=== PATIENT | female | born 1980 | race Caucasian/White ===

== ENCOUNTER → 2017-10-07 06:45 | Outpatient (CLI) | payer OTHER, MEDICAID, SELFPAY ==
--- NOTE | 2017-10-07 06:47 | DI.MRI.S_ITS ---
PROCEDURE: MR LUMBAR SPINE WO CON INDICATIONS: chronic back pain TECHNIQUE: Noncontrast sagittal T1 spin echo and T2 fast echo, sagittal STIR, axial T1 and T2 fast spin echo through the lumbar spine. In cases with scoliosis, additional coronal T2 fast spin echo may be performed. COMPARISON: [facility], , ABDOMEN ACUTE SERIES, 04/11/2017, 14:23. FINDINGS: Image quality: Excellent. Alignment and Curvature: 5 lumbar type vertebral bodies are present by plain film. There is minimal grade 1 retrolisthesis of L5 on S1.. Bone Marrow: Marrow is of normal overall signal. No acute vertebral body compression fractures. Spinal Cord: Conus medullaris terminates at the L1-L2 disc space level. Visualized cord demonstrates normal signal and size. Paraspinous Soft Tissues: No paravertebral masses. L1-L2: Normal appearance. L2-L3: Normal appearance. L3-L4: Bilateral facet hypertrophy. No significant canal, nor foraminal stenosis. L4-L5: Disc desiccation. Bilateral facet hypertrophy. No significant canal, nor foraminal stenosis. L5-S1: Disc desiccation and diffuse disc bulge, with superimposed left paracentral protrusion. Bilateral facet hypertrophy. No canal stenosis. Mild left foraminal stenosis. Impingement upon the left S1 nerve root within the lateral recess. IMPRESSION: Disc and facet disease at L5-S1, causing left S1 nerve root impingement. Recommend correlation with clinical symptoms to ascertain relevance of this finding. Dictated by: Humza Brothers M.D. on 10/07/2017 at 11:55 Approved by: Humza Brothers M.D. on 10/07/2017 at 14:20
== END ==
PROVIDERS: Family Provider Family Medicine; PCP Family Medicine; Visit Provider Family Medicine
DX: M51.87 Other intervertebral disc disorders, lumbosacral region (principal); M54.16 Radiculopathy, lumbar region; M54.9 Dorsalgia, unspecified; G89.29 Other chronic pain
CPT/HCPCS: 72148

== ENCOUNTER → 2017-10-17 15:46 | Outpatient (CLI) | payer OTHER, MEDICAID, SELFPAY | PROVIDERS: Family Provider Family Medicine; PCP Family Medicine; Visit Provider Family Medicine | DX: L02.31 Cutaneous abscess of buttock (principal); L03.317 Cellulitis of buttock | CPT/HCPCS: 87070; 87075; 87077; 87147; 87186; 87205 ==

== ENCOUNTER 2017-10-21 21:41 | Emergency (ER) | payer OTHER, MEDICAID, SELFPAY ==
[2017-10-21 22:01] VITALS: BP 150/89; PULSE 107; RESP 18; TEMP 36.7; O2SAT 95; BMI 43.0
--- NOTE | 2017-10-22 00:19 | ED_ITS ---
HPI - Back Pain/Injury General Chief Complaint: Back Pain/Injury Stated Complaint: BACK PAIN Time Seen by Provider: 10/21/17 22:57 History of Present Illness HPI Narrative: HPI 36-year-old morbidly obese female with a known L5/S1 radiculopathy secondary to a herniated disc presents for treatment of ongoing pain in the setting of gabapentin, Toradol, oxycodone use at home. Patient denies a history of recent trauma, fevers, chills, unexpected weight loss, decreased perineal sensation when toileting, difficulty urinating or incontinence, morning stiffness, IV drug use, recent invasive medical procedures, presyncope, abdominal pain, Marfan 's disease, or dysuria. Clinic note dated 10/20/17 reviewed and notable for: 3.5 weeks of document pain, worsened after chiropractic visit. Pain was described as constant, burning, aching, and occasionally sharp depending on activity. Prior treatments have included ice, he, NSAIDs, and an unspecified pain medication. Patient's is a current every day smoker. L spine MRI (10/07/17): disc and facet disease at L5-S1 causing left S1 nerve root impingement. M/S/F/SocHx notable for: hysterectomy; remainder reviewed with patient and in chart. ROS: Negative constitutional, eye, cardiovascular, pulmonary, GI, , MSK, skin , neurologic, psychiatric, endocrine unless noted in the HPI. Exam Gen: Pleasant, non-toxic appearing, resting in mild discomfort. HEENT: NC, AT, PEERL, EOMI. Resp: CTAB Card: RRR GI: ND, non-tender to palpation, no palpable midline masses, no palpable midline pulsatility. : No CVA tenderness to percussion bilaterally. MSK: No visible deformities, strength and tone WNL. No lower thoracic or lumbar spinal TTP, step offs or deformities. No paraspinal TTP. Skin: Normal color with no visible lesions. Neuro: AO x 3, no facial asymmetry, vision and hearing WNL. Straight leg raise test - negative right, positive left. BLE distal sensation intact, 5/5 dorsiflexion / plantarflexion bilaterally. Gait: mildly antalgic, normal, narrow based gait, able to walk unassisted and stand on heels and toes with full apparent strength. Psych: Mood and affect appropriate. MDM Previous chart, nursing note, and vitals reviewed. A: 36-year-old morbidly obese female with a known L5/S1 radiculopathy secondary to a herniated disc presents for treatment of ongoing pain in the setting of gabapentin, Toradol, oxycodone use at home. DDx: muscle strain, muscle spasm, sciatica, lumbar radiculopathy, cauda equina syndrome, spinal cord abscess, vertebral osteomyelitis, vertebral diskitis, fracture, seronegative spondyloarthropathy, abdominal aortic aneurysm. Evaluation: * Cauda equina - consider unlikely given normal perineal sensation, lack of incontinence or urinary retention. * Infection - abscess, vertebral osteomyelitis, and diskitis are unlikely as the patient is immunocompetent and is with an absence of infectious signs and risk factors on ROS, and a lack of point tenderness. * Fracture - doubt given the absence of spinal TTP and lack of prior trauma * Seronegative spondyloarthropathy - unlikely, no further evaluation currently indicated given the absence of morning stiffness and negative RA, psoriatic arthritis, and autoimmune disease history. * AAA or Dissection - [given the lack of a palpable pulsatile abdominal mass, abdominal pain, presyncope, an abdominal aortic aneurysm as well as dissection is considered unlikely and further investigation is not currently indicated. * Consider lumbar radiculopathy to be the most likely cause of the patient's symptoms. Counseled patient regarding natural course of radicular back pain, given return to care instructions, and recommendation for primary care physician follow up. Discharged with instructions to continue previously prescribed medications. 30 mg IM Toradol given prior to discharge. Impression: Back Pain. (please reference below for remainder of encounter information) Related Data Home Medications Medication Instructions Recorded Confirmed amitriptyline 75 mg tablet 75 mg PO BEDTIME tab 09/25/17 10/20/17 Previous Rx's Medication Instructions Recorded albuterol sulfate 3 ml INH Q6HP PRN #30 ea 10/30/16 acyclovir 400 mg PO TID #30 tab 03/24/17 duloxetine 30 mg PO QDAY #30 cap 05/08/17 duloxetine [Cymbalta] 60 mg PO QDAY #90 cap 05/26/17 risperidone [Risperdal] 0 PO QHS #60 tab 06/02/17 hydroxyzine pamoate [Vistaril] 0 PO QDAY PRN #10 cap 07/28/17 zolpidem [Ambien] 10 mg PO HS #90 tab 07/28/17 levothyroxine 100 mcg PO QAM #90 tab 08/11/17 ibuprofen 600 mg tablet 600 mg PO Q6HP PRN #20 tab 09/16/17 albuterol sulfate HFA 90 0 puff INHALATION PRN #1 inh 09/19/17 mcg/actuation aerosol inhaler furosemide 20 mg tablet 20 mg PO DAILY PRN #14 tab 09/25/17 gabapentin 600 mg tablet 600 mg PO TID #90 tab 10/10/17 hydrocodone 5 mg-acetaminophen 325 1 tab PO Q6H #120 tab 10/10/17 mg tablet ketorolac 10 mg tablet 10 mg PO Q6H PRN #30 tab 10/10/17 oxycodone 5 mg tablet 5 mg PO Q4-6H PRN #30 tab 10/14/17 Allergies Allergy/AdvReac Type Severity Reaction Status Date / Time Penicillins [PENICILLINS] Allergy Unknown Verified 09/25/17 12:05 fluconazole [From DIFLUCAN] AdvReac Intermediate vomiting Verified 09/25/17 12: 05 and abd pain codeine [CODEINE] AdvReac Mild NAUSEA Verified 09/25/17 12:05 [facility] Social History Smoking Status: Current some day smoker Exam Initial Vital Signs Initial Vital Signs: Vital Signs Temperature 98.0 F 10/21/17 22:01 Pulse Rate 107 H 10/21/17 22:01 Respiratory Rate 18 10/21/17 22:01 Blood Pressure 150/89 H 10/21/17 22:01 Pulse Oximetry 95 10/21/17 22:01 Course Vital Signs - 8 hr 10/21/17 22:01 Temperature 98.0 F Pulse Rate 107 H Respiratory Rate 18 Blood Pressure 150/89 H Pulse Oximetry 95 Discharge Plan Departure Prescriptions: No Action albuterol sulfate 2.5 MG/3 ML solution for nebulization 3 ml INH Q6HP PRNQty: 30 RF: 1 acyclovir 400 MG tablet 400 mg PO TID Qty: 30 RF: 1 duloxetine 30 MG capsule,delayed release(DR/EC) 30 mg PO QDAY Qty: 30 RF: 6 duloxetine [Cymbalta] 60 MG capsule,delayed release(DR/EC) 60 mg PO QDAY Qty: 90 RF: 3 risperidone [Risperdal] 0.5 MG tablet PO QHS Qty: 60 RF: 5 hydroxyzine pamoate [Vistaril] 50 MG capsule PO QDAY PRNQty: 10 RF: 1 zolpidem [Ambien] 10 MG tablet 10 mg PO HS Qty: 90 RF: 3 levothyroxine 100 MCG tablet 100 mcg PO QAM Qty: 90 RF: 3 ibuprofen 600 mg tablet 600 mg PO Q6HP PRN (Reason: pain) Qty: 20 RF: 0 albuterol sulfate [Ventolin HFA] 90 mcg/actuation HFA aerosol inhaler INHALATION PRN Qty: 1 RF: 2 gabapentin 600 mg tablet 600 mg PO TID Qty: 90 RF: 1 hydrocodone-acetaminophen 5-325 mg tablet 1 tab PO Q6H Qty: 120 RF: 0 ketorolac 10 mg tablet 10 mg PO Q6H PRN (Reason: pain) Qty: 30 RF: 0 oxycodone 5 mg tablet 5 mg PO Q4-6H PRN (Reason: pain) Qty: 30 RF: 0 amitriptyline 75 mg tablet 75 mg PO BEDTIME RF: 0 furosemide [Lasix] 20 mg tablet 20 mg PO DAILY PRN (Reason: edema) Qty: 14 RF: 0
[2017-10-22] MEDS: KETOROLAC 60 MG/2 ML VIAL 30 MG IM (00:24)
[2017-10-22 00:27] VITALS: BP 150/82; PULSE 100; RESP 18; TEMP 36.8; O2SAT 96
== END 2017-10-22 00:27 | disposition home or self-care (01) ==
PROVIDERS: Emergency Provider Emergency Medicine; Family Provider Family Medicine; PCP Family Medicine
DX: M54.9 Dorsalgia, unspecified (principal)
CPT/HCPCS: 96372; 99282; 99283; J1885

== ENCOUNTER → 2017-10-24 15:23 | Outpatient (CLI) | payer OTHER, MEDICAID, SELFPAY | PROVIDERS: Family Provider Family Medicine; PCP Family Medicine; Visit Provider Family Medicine | DX: L02.31 Cutaneous abscess of buttock (principal); L03.317 Cellulitis of buttock | CPT/HCPCS: 87252 ==

== ENCOUNTER → 2017-10-29 17:23 | Outpatient (CLI) | payer OTHER, SELFPAY ==
--- NOTE | 2017-10-29 17:32 | DI.RAD.S_ITS ---
PROCEDURE: XR LUMBAR SPINE MIN 4V INDICATIONS: L5-S1 HNP with left lower extremity radiculopathy TECHNIQUE: 5 views of the lumbar spine were acquired. COMPARISON: [facility], , XR L-SPINE 4-6V, 01/04/2004, 15:08. FINDINGS: Bones: 5 nonrib-bearing vertebrae are present. There is normal bony alignment. No vertebral body compression fractures. No suspicious bony lesions. Mild disc narrowing L4-5. Mild disc degeneration and facet arthropathy L5-S1, mildly progressive since prior study. Soft tissues: Overlying bowel gas pattern is normal. No suspicious soft tissue calcifications. Oblique images: No pars defects. IMPRESSION: Mild degenerative changes lower lumbar spine. No acute bony abnormality. Dictated by: Enzo Contreras M.D. on 10/30/2017 at 7:51 Approved by: Enzo Contreras M.D. on 10/30/2017 at 7:53
--- NOTE | 2017-10-29 17:34 | DI.RAD.S_ITS ---
PROCEDURE: XR CHEST 2V INDICATIONS: COUGH TECHNIQUE: 2 views of the chest were acquired. COMPARISON: [facility], , CHEST 1 VIEW, 05/04/2017, 18:51. FINDINGS: Surgical changes and devices: None. Lungs and pleura: No pleural effusions or pneumothorax. The right lung field is denser than the left, probably technical artifact as the soft tissues of the arm also appear underexposed on the right. There is apparent atelectasis and bronchial wall thickening in the medial basilar segment of the right lower lobe, suspect for bronchitis/bronchopneumonia. Mediastinum: Mediastinal contours are normal. Heart size is normal. Bones and chest wall: No suspicious bony abnormalities. Soft tissues appear unremarkable. IMPRESSION: 1. Probable technical artifactual asymmetry of thoracic density 2. Probable right lower lobe bronchitis/bronchopneumonia. Recommend clinical correlation and short interval followup. Dictated by: Enzo Contreras M.D. on 10/30/2017 at 7:45 Approved by: Enzo Contreras M.D. on 10/30/2017 at 7:47
== END ==
PROVIDERS: Family Provider Family Medicine; PCP Family Medicine; Visit Provider Physical Medicine & Rehabilitation
DX: R05 Cough (principal); M51.36 Other intervertebral disc degeneration, lumbar region; M54.17 Radiculopathy, lumbosacral region; M51.27 Other intervertebral disc displacement, lumbosacral region; M54.9 Dorsalgia, unspecified
CPT/HCPCS: 71046; 72110

== ENCOUNTER 2017-11-12 13:15 | Outpatient (CLI) | payer OTHER, SELFPAY ==
[2017-11-12] VITALS (7 sets, daily range): BP systolic 121–148; BP diastolic 69–97; PULSE 93–105; RESP 10–18; TEMP 36.8; O2SAT 96–99
--- NOTE | 2017-11-12 13:16 | DI.RAD.S_ITS ---
PROCEDURE: PAIN L/S TRANSFORAMINAL INJECT INDICATIONS: lower extremity radiculopathy FINDINGS: Fluoroscopic spot filming was performed to verify placement of spinal needles at the left L5-S1 level(s), as labeled on the films. Appropriate location(s) of the needle tip(s) was confirmed by injection of iodinated contrast. IMPRESSION: Left L5-S1 needle tip localization for perineural steroid injection in this area. Dictated by: Nitish Sexton M.D. on 11/12/2017 at 17:03 Approved by: Nitish Sexton M.D. on 11/12/2017 at 17:04
[2017-11-12] MEDS: IOPAMIDOL 15 ML VIAL 3 ML INJ (16:07)
[2017-11-12] MEDS: DEXAMETHASONE 10 MG/ML VIAL 20 MG INJ (16:07)
[2017-11-12] MEDS: BUPIVACAINE 0.25% (PF) 30 ML VIAL INJ (16:07)
[2017-11-12] MEDS: MIDAZOLAM 5 MG/5 ML VIAL IV (16:08)
--- NOTE | 2017-11-12 16:10 | P.PCN_ITS ---
Procedures Date/Time Date of procedure: 11/12/17 Time of procedure: 16:09 General Procedure description: PREOP DIAGNOSIS 1. FORMAINAL STENOSIS WITH LE SYMPTOMS POST OP DIAGNOSIS 1. FORMAINAL STENOSIS WITH LE SYMPTOMS PROCEDURES 1. FLUOROSCOPICALLY GUIDED CONTRAST CONTROLLED TRANSFORAMINAL EPIDURAL STEROID INJECTION - Left L5/S1 PHYSICIAN: Lei Ogden DO INDICATIONS: Alina is referred by Dr. Vieyra for treatment of HNP/Foraminal Stenosis with Right LE Symptoms FINDINGS Foraminal Nerve Root Compression secondary to disc disease and facet hypertrophy DESCRIPTION OF PROCEDURE: Following denial of allergy and review of potential side effects and complications, including, but not necessarily limited to, infection, allergic reaction, local tissue breakdown, stroke, temporary or permanent nerve injury, paralysis, and possible , the patient indicated that the patient understood and agreed to proceed. An informed consent document was signed by the patient, witnessed by a nurse, and placed in the patient's chart. Additionally, other treatment options including medications, modalities, and physical therapy were reviewed with the patient. Per the patient request, IV conscious sedation was administered via 5mg of Versed to patient comfort. The patient's vital signs were monitored throughout the procedure by both the nurse and the physician without significant fluctuation. The patient remained conversant throughout the procedure. In the prone position following sterile prep and drape of the lumbar region, the Left L5/S1 posterior neuroforamen was identified fluoroscopically. The skin was anesthetized via a 25-gauge 1.5-inch needle with 1% lidocaine solution. At this point, a 25-gauge 3.5-inch spinal needle was atraumatically introduced and advanced under fluoroscopic guidance through the posterior Left L5/S1 neuroforamen to approximately the anterior aspect of the canal. Depth was confirmed on lateral view. Following negative aspiration, injection of approximately 1.5 cc of Isovue 200 under live fluoroscopy in the AP view confirmed excellent flow along the nerve root, into the epidural space without vascular or intrathecal uptake observed Radiological data, including multiple fluoroscopic views of the lumbosacral spine, reveal a spinal needle at the Left L5/S1 posterior neuroforamen. Subsequent views show flow of contrast material flowing superiorly and inferiorly along the nerve root confirming epidural flow. Subsequently, a test dose of 1.5 cc of 1% lidocaine solution was administered and patient was observed for two minutes for signs or symptoms of complications , including abdominal pain, shortness of breath, bilateral upper or lower extremity weakness, nausea and vomiting, prior to steroid injection. At this point, a total of 3 cc or 20 mg of dexamethasone and 80mg Depo Medrol was injected without incident. The patient was then transferred to the recovery area where they were observed for an appropriate time after the injection. The patient reported a VAS score of 7 prior to the procedure and a post-procedure VAS of 0. Total Fluoroscopy Time: 20.9 seconds Total Conscious Sedation Time: 24min POST OP INSTRUCTIONS The patient was provided a Pain Log to continue to record their response to the target-specific procedure prior to follow-up visit with their referring physician. Additionally, specific post-injection care instructions and a contact number to our office were provided if concerns arise regarding possible complications associated with the procedure are suspected. Lei Ogden DO Complications: none
== END 2017-11-12 17:34 | disposition home or self-care (01) ==
PROVIDERS: PCP Family Medicine; Visit Provider Physical Medicine & Rehabilitation
DX: M51.17 Intervertebral disc disorders with radiculopathy, lumbosacral region (principal)
CPT/HCPCS: 64483; 99152; J1100; J2250

== ENCOUNTER 2017-12-31 18:12 | Emergency (ER) | payer OTHER, SELFPAY ==
[2017-12-31 18:24] VITALS: BP 165/102; PULSE 111; RESP 20; TEMP 37.3; O2SAT 95; BMI 42.0
[2017-12-31 19:21] LABS: Add Manual Diff / Slide Review NO; Basophils Percent Auto 0.6 % (0-2); Hematocrit 39.5 % (36-46); Hemoglobin 12.9 g/dL (12.0-16.0); Lymphocytes Percent Auto 14.9 % (25-40); Mean Corpuscular HGB Conc 32.5 % (30-36); Mean Corpuscular Hemoglobin 27.4 PG (26-34); Mean Corpuscular Volume 84.3 fL (80-100); Neutrophils Absolute Auto 8500 /uL (3000-5900); Neutrophils Percent Auto 73.5 % (50-75); Platelet Count 335 X10^3/uL (150-400); Red Blood Cell Count 4.69 X10^6/uL (4.0-5.2); Red Cell Distribution Width 16.6 % (11.6-14.8); White Blood Cell Count 11.6 X10^3/uL (4.5-11.0)
[2017-12-31 19:24] LABS: Alanine Aminotransferase 41 IU/L (9-52); Albumin 4.6 g/dL (3.5-5.0); Albumin Globulin Ratio 1.4 (1.0-2.8); Alkaline Phosphatase 155 U/L (38-126); Aspartate Aminotransferase 39 IU/L (14-36); BUN Creatinine Ratio 15.7 (6-22); Bilirubin Total 0.4 mg/dL (0.2-1.3); Blood Urea Nitrogen 11 mg/dL (7-17); Calcium 9.6 mg/dL (8.4-10.2); Carbon Dioxide 31 mmol/L (22-32); Chloride 103 mmol/L (98-107); Estimated Glomerular Filt Rate > 60.0 mL/min (>60); Globulin 3.2 g/dL (1.7-4.1); Glucose 108 mg/dL (70-100); HEMOLYSIS < 15 (0-50); Potassium 3.7 mmol/L (3.4-5.1); Sodium 144 mmol/L (137-145); Total Protein 7.8 g/dL (6.3-8.2)
--- NOTE | 2017-12-31 20:46 | DI.RAD.S_ITS ---
PROCEDURE: XR CHEST 2V INDICATIONS: SOB TECHNIQUE: 2 views of the chest were acquired. COMPARISON: , CR, CHEST 1 VIEW, 05/04/2017, 18:51. , CT, PE STUDY (CTA CHEST), 01/31/2016, 1:49. , CR, XR CHEST 2V, 10/29/2017, 17:14. FINDINGS: Surgical changes and devices: None. Lungs and pleura: No pleural effusions or pneumothorax. There are indistinct interstitial opacities redemonstrated in the right lung with slight asymmetric bronchial wall thickening. There are also increased linear right infrahilar opacities. Mediastinum: Mediastinal contours are normal. Heart size is normal. Bones and chest wall: No suspicious bony abnormalities. Soft tissues appear unremarkable. IMPRESSION: 1. Asymmetric right interstitial opacities with slight bronchial wall thickening similar to the recent study but new compared to older exams. The findings are nonspecific but suggestive of an atypical infection. 2. Increased right infrahilar linear opacities consistent with atelectasis or pneumonia. Dictated by: Amish Deutsch M.D. on 12/31/2017 at 21:23 Approved by: Amish Deutsch M.D. on 12/31/2017 at 21:25
[2017-12-31 21:04] VITALS: BP 154/98; PULSE 105; RESP 21; O2SAT 95
[2017-12-31] MEDS: ACETAMINOPHEN 325 MG TABLET 650 MG PO (21:08)
[2017-12-31 21:35] LABS: B Type Natriuretic Peptide < 100.0 (<100)
--- NOTE | 2017-12-31 22:01 | ED.GENADULT ---
HPI - General Adult General Chief complaint: Hypertension Stated complaint: TROUBLE URINATING Time Seen by Provider: 12/31/17 20:38 Source: patient Mode of arrival: ambulatory Limitations: no limitations History of Present Illness HPI narrative: 37-year-old female with history of hypertension presents to the emergency department with a chief complaint of elevated blood pressure as well as lack of response to Lasix and continued swelling in her ankles. She denies any chest pain or shortness of breath and is not dizzy or lightheaded. She denies any abdominal pain or focal neurologic findings such as numbness, tingling or weakness. She was encouraged to present to the emergency department by her doctors when it sounded as if she was not producing urine at home. She has been taking Lasix 40 mg for edema and not urinating Onset (ago): day(s) Severity: moderate Quality: aching Relieving factors: none Exacerbating factors: none Related Data Home Medications Medication Instructions Recorded Confirmed amitriptyline 75 mg tablet 75 mg PO BEDTIME tab 09/25/17 12/23/17 Previous Rx's Medication Instructions Recorded albuterol sulfate 3 ml INH Q6HP PRN #30 ea 10/30/16 duloxetine 30 mg PO QDAY #30 cap 05/08/17 duloxetine [Cymbalta] 60 mg PO QDAY #90 cap 05/26/17 zolpidem [Ambien] 10 mg PO HS #90 tab 07/28/17 levothyroxine 100 mcg PO QAM #90 tab 08/11/17 ibuprofen 600 mg tablet 600 mg PO Q6HP PRN #20 tab 09/16/17 albuterol sulfate HFA 90 0 puff INHALATION PRN #1 inh 09/19/17 mcg/actuation aerosol inhaler furosemide 20 mg tablet 20 mg PO DAILY PRN #14 tab 09/25/17 hydrocodone 5 mg-acetaminophen 325 1 tab PO Q6H #120 tab 11/25/17 mg tablet risperidone 0.5 mg tablet See Label Instructions PO QHS #60 12/10/17 tab gabapentin 600 mg tablet 600 mg PO TID #90 tab 12/12/17 albuterol sulfate 2.5 mg INHALATION Q4-6H PRN #90 ml 12/31/17 furosemide [Lasix] 40 mg PO DAILY #14 tab 12/31/17 lisinopril 20 mg PO DAILY #20 tab 12/31/17 Allergies Allergy/AdvReac Type Severity Reaction Status Date / Time Penicillins [PENICILLINS] Allergy Unknown Verified 12/23/17 09:47 fluconazole [From DIFLUCAN] AdvReac Intermediate vomiting Verified 12/23/17 09:47 and abd pain codeine [CODEINE] AdvReac Mild NAUSEA Verified 12/23/17 09:47 Review of Systems Review of Systems All systems reviewed & are unremarkable except as noted in HPI and below Constitutional Denies chills, Denies fever(s), Denies lethargy and Denies weakness Eyes Denies change in vision, Denies eye discharge, Denies irritation and Denies loss of vision ENT Ears, Nose, Mouth, and Throat: Denies change in voice, Denies neck pain and Denies sore throat Cardiovascular Denies chest pain, Denies irregular heart rhythm, Denies lightheadedness, Denies palpitations, Denies dyspnea, Denies dyspnea on exertion and Denies orthopnea Respiratory Denies cough, Denies dyspnea, Denies dyspnea on exertion and Denies wheezing Gastrointestinal Gastrointestinal: Denies abdominal pain, Denies change in bowel habits, Denies diarrhea, Denies nausea and Denies vomiting Genitourinary Denies hematuria, Denies flank pain, Denies urinary incontinence and Denies urinary urgency Comments: Difficulty with urination Musculoskeletal Denies neck pain Comments: Swollen lower extremities Integumentary/Breasts Denies pruritus, Denies erythema, Denies rash and Denies wounds Neurologic Denies confusion, Denies loss of vision and Denies weakness Psychiatric Denies anxiety, Denies confusion, Denies depression, Denies homicidal ideation and Denies suicidal ideation Endocrine Denies palpitations Hematologic/Lymphatic Denies easy bruising Allergic/Immunologic Denies wheezing [facility] Medical History Anxiety (Chronic) Asthma (Chronic) Depression (Chronic) Diverticular disease (Chronic ~2015) Irritable bowel syndrome (Chronic) Rheumatoid arthritis (Chronic) Surgical History Status post delivery (12/30/14) Status post laparoscopic supracervical hysterectomy (10/23/15) Status post laparoscopy (01/19/16) Status post surgery (07/07/12) Status post tubal ligation (12/30/14) Family History Grandmother Stroke Grandfather Heart disease Cancer Father Hypertension Social History Smoking Status: Current some day smoker Exam Narrative Exam Narrative: GENERAL: This is a well-nourished, well-developed patient, in mild distress. HEAD: Atraumatic. Normocephalic. No temporal or scalp tenderness. EYES: Pupils equal round and reactive. Extraocular motions intact. No scleral icterus. No injection or drainage. ENT: Nose without bleeding, purulent drainage or septal hematoma. Throat without erythema, tonsillar hypertrophy or exudate. Uvula midline. Airway patent. NECK: Trachea midline. No JVD or lymphadenopathy. Supple, nontender, no meningeal signs. CARDIOVASCULAR: Regular rate and rhythm without murmurs, gallops, or rubs. RESPIRATORY: Clear to auscultation. Breath sounds equal bilaterally. No wheezes, rales, or rhonchi. GASTROINTESTINAL: Abdomen soft, non-tender, nondistended. No hepato-splenomegaly, or palpable masses. No guarding. EXTREMITIES: No clubbing, cyanosis, or edema. Mild lower extremity pitting edema BACK: Nontender without deformity or crepitance. No flank tenderness. NEURO: AOx3. SKIN: No rash or erythema. Initial Vital Signs Initial Vital Signs: Vital Signs Temperature 99.1 F 12/31/17 18:24 Pulse Rate 111 H 12/31/17 18:24 Respiratory Rate 20 12/31/17 18:24 Blood Pressure 165/102 H 12/31/17 18:24 Pulse Oximetry 95 12/31/17 18:24 Course Orders Ordered: ED Orders 12/31/17 18:45 B Type Natriuretic Peptide Stat CBC [Complete Blood Count AUTO DIFF] Stat Comprehensive Metabolic Panel Stat 12/31/17 20:46 XR chest 2V Stat Discontinued Medications Acetaminophen (Tylenol) 650 mg PO NOW ONE Stop: 12/31/17 20:47 Last Admin: 12/31/17 21:08 Dose: 650 mg Vital Signs - 8 hr 12/31/17 21:04 12/31/17 23:07 Pulse Rate 105 H 88 Respiratory Rate 21 18 Blood Pressure [Left Wrist] 154/98 H 140/95 H Pulse Oximetry 95 95 Medical Decision Making MDM Narrative Medical decision making narrative: patient denies fever chills or productive cough. though She has a very minimally elevated white count and the chest x-ray suggests pneumonia I am more inclined to believe the atelectasis. She does not satisfy criteria for the treatment of what is most likely not pneumonia Lab Data Result diagrams: 12/31/17 18:45 12/31/17 18:45 Lab Results 12/31/17 12/31/17 12/31/17 Range/Units 18:45 18:45 18:45 WBC 11.6 H (4.5-11.0) X10^3/uL RBC 4.69 (4.0-5.2) X10^6/uL Hgb 12.9 (12.0-16.0) g/dL Hct 39.5 (36-46) % MCV 84.3 (80-100) fL MCH 27.4 (26-34) PG MCHC 32.5 (30-36) % RDW 16.6 H (11.6-14.8) % Plt Count 335 (150-400) X10^3/uL Neut % (Auto) 73.5 (50-75) % Lymph % (Auto) 14.9 L (25-40) % [place] % (Auto) 6.0 (3-14) % Eos % (Auto) 5.0 H (2-4) % Baso % (Auto) 0.6 (0-2) % Neut # (Auto) 8500 H (3623-2243) /uL Sodium 144 (137-145) mmol/L Potassium 3.7 (3.4-5.1) mmol/L Chloride 103 (98-107) mmol/L Carbon Dioxide 31 (22-32) mmol/L BUN 11 (7-17) mg/dL Creatinine 0.70 (0.52-1.04) mg/dL Estimated GFR > 60.0 (>60) mL/min BUN/Creatinine Ratio 15.7 (6-22) Glucose 108 H (70-100) mg/dL Calcium 9.6 (8.4-10.2) mg/dL Total Bilirubin 0.4 (0.2-1.3) mg/dL AST 39 H (14-36) IU/L ALT 41 (9-52) IU/L Alkaline Phosphatase 155 H (38-126) U/L B-Natriuretic Peptide < 100.0 (<100) Total Protein 7.8 (6.3-8.2) g/dL Albumin 4.6 (3.5-5.0) g/dL Globulin 3.2 (1.7-4.1) g/dL Albumin/Globulin Ratio 1.4 (1.0-2.8) Imaging Data Chest x-ray: Radiologist's impression: PROCEDURE: XR CHEST 2V INDICATIONS: SOB TECHNIQUE: 2 views of the chest were acquired. COMPARISON: [facility], CR, CHEST 1 VIEW, 05/04/2017, 18:51. [facility], CT, PE STUDY (CTA CHEST), 01/31/2016, 1:49. [facility], CR, XR CHEST 2V, 10/29/2017, 17:14. FINDINGS: Surgical changes and devices: None. Lungs and pleura: No pleural effusions or pneumothorax. There are indistinct interstitial opacities redemonstrated in the right lung with slight asymmetric bronchial wall thickening. There are also increased linear right infrahilar opacities. Mediastinum: Mediastinal contours are normal. Heart size is normal. Bones and chest wall: No suspicious bony abnormalities. Soft tissues appear unremarkable. IMPRESSION: 1. Asymmetric right interstitial opacities with slight bronchial wall thickening similar to the recent study but new compared to older exams. The findings are nonspecific but suggestive of an atypical infection. 2. Increased right infrahilar linear opacities consistent with atelectasis or pneumonia. Dictated by: Amish Deutsch M.D. on 12/31/2017 at 21:23 Approved by: Amish Deutsch M.D. on 12/31/2017 at 21:25 Discharge Plan Departure Patient Disposition: Home Clinical Impression: Hypertension, Edema Discharge Date/Time: 12/31/17 23:28 Interventions: ED Discharge Assessment Last Done: 12/31/17 23:25 Instructions: DI for High Blood Pressure Activity Restrictions/Additional Instructions: *You have been diagnosed with [ bilateral lower extremity edema, elevated blood pressure ] *What to do: *Take medications as directed: Your new prescription [facility] based on past preferences. Please take Lasix 60 mg p.o. daily for the next 3 days and then return to her normal regimen *Follow up with your primary care provider in 2-3 days, call for an appointment. Let them know you were seen in the Emergency Department and that we ask that you be seen in follow up *Return to ER if you should have any new, worsening or concerning symptoms Prescriptions: New lisinopril 20 mg tablet 20 mg PO DAILY Qty: 20 RF: 0 furosemide [Lasix] 40 mg tablet 40 mg PO DAILY Qty: 14 RF: 0 albuterol sulfate 2.5 mg /3 mL (0.083 %) solution for nebulization 2.5 mg INHALATION Q4-6H PRN (Reason: bronchospasm) Qty: 90 RF: 0 No Action albuterol sulfate 2.5 MG/3 ML solution for nebulization 3 ml INH Q6HP PRNQty: 30 RF: 1 duloxetine 30 MG capsule,delayed release(DR/EC) 30 mg PO QDAY Qty: 30 RF: 6 duloxetine [Cymbalta] 60 MG capsule,delayed release(DR/EC) 60 mg PO QDAY Qty: 90 RF: 3 zolpidem [Ambien] 10 MG tablet 10 mg PO HS Qty: 90 RF: 3 levothyroxine 100 MCG tablet 100 mcg PO QAM Qty: 90 RF: 3 ibuprofen 600 mg tablet 600 mg PO Q6HP PRN (Reason: pain) Qty: 20 RF: 0 albuterol sulfate [Ventolin HFA] 90 mcg/actuation HFA aerosol inhaler INHALATION PRN Qty: 1 RF: 2 hydrocodone-acetaminophen 5-325 mg tablet 1 tab PO Q6H Qty: 120 RF: 0 risperidone [Risperdal] 0.5 mg tablet See Label Instructions PO QHS Qty: 60 RF: 0 amitriptyline 75 mg tablet 75 mg PO BEDTIME RF: 0 furosemide [Lasix] 20 mg tablet 20 mg PO DAILY PRN (Reason: edema) Qty: 14 RF: 0 gabapentin 600 mg tablet 600 mg PO TID Qty: 90 RF: 1 Referrals: Rebeca Meyer DO [Primary Care Provider] -
[2017-12-31 23:07] VITALS: BP 140/95; PULSE 88; RESP 18; O2SAT 95
--- NOTE | 2018-01-01 03:01 | ED_ITS ---
HPI - General Adult General Chief complaint: Hypertension Stated complaint: TROUBLE URINATING Time Seen by Provider: 12/31/17 20:38 Source: patient Mode of arrival: ambulatory Limitations: no limitations History of Present Illness HPI narrative: 37-year-old female with history of hypertension presents to the emergency department with a chief complaint of elevated blood pressure as well as lack of response to Lasix and continued swelling in her ankles. She denies any chest pain or shortness of breath and is not dizzy or lightheaded. She denies any abdominal pain or focal neurologic findings such as numbness, tingling or weakness. She was encouraged to present to the emergency department by her doctors when it sounded as if she was not producing urine at home. She has been taking Lasix 40 mg for edema and not urinating Onset (ago): day(s) Severity: moderate Quality: aching Relieving factors: none Exacerbating factors: none Related Data Home Medications Medication Instructions Recorded Confirmed amitriptyline 75 mg tablet 75 mg PO BEDTIME tab 09/25/17 12/23/17 Previous Rx's Medication Instructions Recorded albuterol sulfate 3 ml INH Q6HP PRN #30 ea 10/30/16 duloxetine 30 mg PO QDAY #30 cap 05/08/17 duloxetine [Cymbalta] 60 mg PO QDAY #90 cap 05/26/17 zolpidem [Ambien] 10 mg PO HS #90 tab 07/28/17 levothyroxine 100 mcg PO QAM #90 tab 08/11/17 ibuprofen 600 mg tablet 600 mg PO Q6HP PRN #20 tab 09/16/17 albuterol sulfate HFA 90 0 puff INHALATION PRN #1 inh 09/19/17 mcg/actuation aerosol inhaler furosemide 20 mg tablet 20 mg PO DAILY PRN #14 tab 09/25/17 hydrocodone 5 mg-acetaminophen 325 1 tab PO Q6H #120 tab 11/25/17 mg tablet risperidone 0.5 mg tablet See Label Instructions PO QHS #60 12/10/17 tab gabapentin 600 mg tablet 600 mg PO TID #90 tab 12/12/17 albuterol sulfate 2.5 mg INHALATION Q4-6H PRN #90 ml 12/31/17 furosemide [Lasix] 40 mg PO DAILY #14 tab 12/31/17 lisinopril 20 mg PO DAILY #20 tab 12/31/17 Allergies Allergy/AdvReac Type Severity Reaction Status Date / Time Penicillins [PENICILLINS] Allergy Unknown Verified 12/23/17 09:47 fluconazole [From DIFLUCAN] AdvReac Intermediate vomiting Verified 12/23/17 09: 47 and abd pain codeine [CODEINE] AdvReac Mild NAUSEA Verified 12/23/17 09:47 Review of Systems Review of Systems All systems reviewed & are unremarkable except as noted in HPI and below Constitutional Denies chills, Denies fever(s), Denies lethargy and Denies weakness Eyes Denies change in vision, Denies eye discharge, Denies irritation and Denies loss of vision ENT Ears, Nose, Mouth, and Throat: Denies change in voice, Denies neck pain and Denies sore throat Cardiovascular Denies chest pain, Denies irregular heart rhythm, Denies lightheadedness, Denies palpitations, Denies dyspnea, Denies dyspnea on exertion and Denies orthopnea Respiratory Denies cough, Denies dyspnea, Denies dyspnea on exertion and Denies wheezing Gastrointestinal Gastrointestinal: Denies abdominal pain, Denies change in bowel habits, Denies diarrhea, Denies nausea and Denies vomiting Genitourinary Denies hematuria, Denies flank pain, Denies urinary incontinence and Denies urinary urgency Comments: Difficulty with urination Musculoskeletal Denies neck pain Comments: Swollen lower extremities Integumentary/Breasts Denies pruritus, Denies erythema, Denies rash and Denies wounds Neurologic Denies confusion, Denies loss of vision and Denies weakness Psychiatric Denies anxiety, Denies confusion, Denies depression, Denies homicidal ideation and Denies suicidal ideation Endocrine Denies palpitations Hematologic/Lymphatic Denies easy bruising Allergic/Immunologic Denies wheezing [facility] Medical History Anxiety (Chronic) Asthma (Chronic) Depression (Chronic) Diverticular disease (Chronic ~2015) Irritable bowel syndrome (Chronic) Rheumatoid arthritis (Chronic) Surgical History Status post delivery (12/30/14) Status post laparoscopic supracervical hysterectomy (10/23/15) Status post laparoscopy (01/19/16) Status post surgery (07/07/12) Status post tubal ligation (12/30/14) Family History Grandmother Stroke Grandfather Heart disease Cancer Father Hypertension Social History Smoking Status: Current some day smoker Exam Narrative Exam Narrative: GENERAL: This is a well-nourished, well-developed patient, in mild distress. HEAD: Atraumatic. Normocephalic. No temporal or scalp tenderness. EYES: Pupils equal round and reactive. Extraocular motions intact. No scleral icterus. No injection or drainage. ENT: Nose without bleeding, purulent drainage or septal hematoma. Throat without erythema, tonsillar hypertrophy or exudate. Uvula midline. Airway patent. NECK: Trachea midline. No JVD or lymphadenopathy. Supple, nontender, no meningeal signs. CARDIOVASCULAR: Regular rate and rhythm without murmurs, gallops, or rubs. RESPIRATORY: Clear to auscultation. Breath sounds equal bilaterally. No wheezes , rales, or rhonchi. GASTROINTESTINAL: Abdomen soft, non-tender, nondistended. No hepato-splenomegaly , or palpable masses. No guarding. EXTREMITIES: No clubbing, cyanosis, or edema. Mild lower extremity pitting edema BACK: Nontender without deformity or crepitance. No flank tenderness. NEURO: AOx3. SKIN: No rash or erythema. Initial Vital Signs Initial Vital Signs: Vital Signs Temperature 99.1 F 12/31/17 18:24 Pulse Rate 111 H 12/31/17 18:24 Respiratory Rate 20 12/31/17 18:24 Blood Pressure 165/102 H 12/31/17 18:24 Pulse Oximetry 95 12/31/17 18:24 Course Orders Ordered: ED Orders 12/31/17 18:45 B Type Natriuretic Peptide Stat CBC [Complete Blood Count AUTO DIFF] Stat Comprehensive Metabolic Panel Stat 12/31/17 20:46 XR chest 2V Stat Discontinued Medications Acetaminophen (Tylenol) 650 mg PO NOW ONE Stop: 12/31/17 20:47 Last Admin: 12/31/17 21:08 Dose: 650 mg Vital Signs - 8 hr 12/31/17 21:04 12/31/17 23:07 Pulse Rate 105 H 88 Respiratory Rate 21 18 Blood Pressure [Left Wrist] 154/98 H 140/95 H Pulse Oximetry 95 95 Medical Decision Making MDM Narrative Medical decision making narrative: patient denies fever chills or productive cough. though She has a very minimally elevated white count and the chest x- ray suggests pneumonia I am more inclined to believe the atelectasis. She does not satisfy criteria for the treatment of what is most likely not pneumonia Lab Data Result diagrams: 12/31/17 18:45 12/31/17 18:45 Lab Results 12/31/17 12/31/17 12/31/17 Range/Units 18:45 18:45 18:45 WBC 11.6 H (4.5-11.0) X10^3/uL RBC 4.69 (4.0-5.2) X10^6/uL Hgb 12.9 (12.0-16.0) g/dL Hct 39.5 (36-46) % MCV 84.3 (80-100) fL MCH 27.4 (26-34) PG MCHC 32.5 (30-36) % RDW 16.6 H (11.6-14.8) % Plt Count 335 (150-400) X10^3/uL Neut % (Auto) 73.5 (50-75) % Lymph % (Auto) 14.9 L (25-40) % [place] % (Auto) 6.0 (3-14) % Eos % (Auto) 5.0 H (2-4) % Baso % (Auto) 0.6 (0-2) % Neut # (Auto) 8500 H (8076-4222) /uL Sodium 144 (137-145) mmol/L Potassium 3.7 (3.4-5.1) mmol/L Chloride 103 (98-107) mmol/L Carbon Dioxide 31 (22-32) mmol/L BUN 11 (7-17) mg/dL Creatinine 0.70 (0.52-1.04) mg/dL Estimated GFR > 60.0 (>60) mL/min BUN/Creatinine Ratio 15.7 (6-22) Glucose 108 H (70-100) mg/dL Calcium 9.6 (8.4-10.2) mg/dL Total Bilirubin 0.4 (0.2-1.3) mg/dL AST 39 H (14-36) IU/L ALT 41 (9-52) IU/L Alkaline Phosphatase 155 H (38-126) U/L B-Natriuretic Peptide < 100.0 (<100) Total Protein 7.8 (6.3-8.2) g/dL Albumin 4.6 (3.5-5.0) g/dL Globulin 3.2 (1.7-4.1) g/dL Albumin/Globulin Ratio 1.4 (1.0-2.8) Imaging Data Chest x-ray: Radiologist's impression: PROCEDURE: XR CHEST 2V INDICATIONS: SOB TECHNIQUE: 2 views of the chest were acquired. COMPARISON: [facility], CR, CHEST 1 VIEW, 05/04/2017, 18:51. [facility], CT, PE STUDY (CTA CHEST), 01/31/2016, 1:49. [facility], CR, XR CHEST 2V, 2017, 17:14. FINDINGS: Surgical changes and devices: None. Lungs and pleura: No pleural effusions or pneumothorax. There are indistinct interstitial opacities redemonstrated in the right lung with slight asymmetric bronchial wall thickening. There are also increased linear right infrahilar opacities. Mediastinum: Mediastinal contours are normal. Heart size is normal. Bones and chest wall: No suspicious bony abnormalities. Soft tissues appear unremarkable. IMPRESSION: 1. Asymmetric right interstitial opacities with slight bronchial wall thickening similar to the recent study but new compared to older exams. The findings are nonspecific but suggestive of an atypical infection. 2. Increased right infrahilar linear opacities consistent with atelectasis or pneumonia. Dictated by: Amish Deutsch M.D. on 12/31/2017 at 21:23 Approved by: Amish Deutsch M.D. on 12/31/2017 at 21:25 Discharge Plan Departure Patient Disposition: Home Clinical Impression: Hypertension, Edema Discharge Date/Time: 12/31/17 23:28 Interventions: ED Discharge Assessment Last Done: 12/31/17 23:25 Instructions: DI for High Blood Pressure Activity Restrictions/Additional Instructions: *You have been diagnosed with [ bilateral lower extremity edema, elevated blood pressure ] *What to do: *Take medications as directed: Your new prescription was electronically [facility] to [facility] based on past preferences. Please take Lasix 60 mg p.o. daily for the next 3 days and then return to her normal regimen *Follow up with your primary care provider in 2-3 days, call for an appointment. Let them know you were seen in the Emergency Department and that we ask that you be seen in follow up *Return to ER if you should have any new, worsening or concerning symptoms Prescriptions: New lisinopril 20 mg tablet 20 mg PO DAILY Qty: 20 RF: 0 furosemide [Lasix] 40 mg tablet 40 mg PO DAILY Qty: 14 RF: 0 albuterol sulfate 2.5 mg /3 mL (0.083 %) solution for nebulization 2.5 mg INHALATION Q4-6H PRN (Reason: bronchospasm) Qty: 90 RF: 0 No Action albuterol sulfate 2.5 MG/3 ML solution for nebulization 3 ml INH Q6HP PRNQty: 30 RF: 1 duloxetine 30 MG capsule,delayed release(DR/EC) 30 mg PO QDAY Qty: 30 RF: 6 duloxetine [Cymbalta] 60 MG capsule,delayed release(DR/EC) 60 mg PO QDAY Qty: 90 RF: 3 zolpidem [Ambien] 10 MG tablet 10 mg PO HS Qty: 90 RF: 3 levothyroxine 100 MCG tablet 100 mcg PO QAM Qty: 90 RF: 3 ibuprofen 600 mg tablet 600 mg PO Q6HP PRN (Reason: pain) Qty: 20 RF: 0 albuterol sulfate [Ventolin HFA] 90 mcg/actuation HFA aerosol inhaler INHALATION PRN Qty: 1 RF: 2 hydrocodone-acetaminophen 5-325 mg tablet 1 tab PO Q6H Qty: 120 RF: 0 risperidone [Risperdal] 0.5 mg tablet See Label Instructions PO QHS Qty: 60 RF: 0 amitriptyline 75 mg tablet 75 mg PO BEDTIME RF: 0 furosemide [Lasix] 20 mg tablet 20 mg PO DAILY PRN (Reason: edema) Qty: 14 RF: 0 gabapentin 600 mg tablet 600 mg PO TID Qty: 90 RF: 1 Referrals: Rebeca Meyer DO [Primary Care Provider] -
== END 2017-12-31 23:28 | disposition home or self-care (01) ==
PROVIDERS: Emergency Provider Emergency Medicine; PCP Family Medicine
DX: I10 Essential (primary) hypertension (principal); R60.9 Edema, unspecified
CPT/HCPCS: 36415; 71046; 80053; 83880; 85025; 99282; 99284

== ENCOUNTER → 2018-01-15 15:14 | Outpatient (CLI) | payer OTHER, MEDICAID, SELFPAY ==
--- NOTE | 2018-01-15 15:17 | DI.CT.S_ITS ---
PROCEDURE: CT HEAD/BRAIN W CON INDICATIONS: soft tissue mass at base of occiput, h/a TECHNIQUE: 4.5 mm thick angled axial sections acquired from the foramen magnum to the vertex after the administration of intravenous contrast, with coronal and sagittal reformats. For radiation dose reduction, the following was used: automated exposure control, adjustment of mA and/or kV according to patient size. COMPARISON: [facility], , CT HEAD W/O CONTRAST, 08/01/2017, 17:42. FINDINGS: Image quality: Excellent. CSF Spaces: Basal cisterns are patent. No extra-axial fluid collections. Ventricles are normal in size and shape. Brain: No midline shift. No intracranial bleeds or masses. No abnormal intracranial enhancement. Steiner-white interface appears normal. Skull and face: Calvarium and visualized facial bones appear intact, without suspicious lesions. Several small scattered lymph nodes are scattered within the scalp soft tissues near the base of skull. They're unchanged compared to prior exam. Sinuses: Visualized sinuses and mastoids are clear. IMPRESSION: 1. No acute intracranial process. 2. Several small scattered lymph nodes within the subcutaneous scalp tissues at the base of skull as above, unchanged. Otherwise, no visualized masses are identified. If clinical concern persists, followup is recommended. Dictated by: Nancy Khan M.D. on 01/15/2018 at 15:07 Approved by: Nancy Khan M.D. on 01/15/2018 at 15:13
== END ==
PROVIDERS: PCP Family Medicine; Visit Provider Internal Medicine
DX: R51 Headache (principal); M79.9 Soft tissue disorder, unspecified
CPT/HCPCS: 70460; Q9967

== ENCOUNTER → 2018-02-05 13:00 | Outpatient (CLI) | payer OTHER, SELFPAY | PROVIDERS: PCP Family Medicine | DX: Z23 Encounter for immunization (principal) | CPT/HCPCS: 90471; 90686 ==

== ENCOUNTER 2018-02-11 14:50 | Outpatient (CLI) | payer OTHER, SELFPAY ==
[2018-02-11] VITALS (7 sets, daily range): BP systolic 117–153; BP diastolic 69–95; PULSE 94–102; RESP 18; TEMP 36.8; O2SAT 96–99
--- NOTE | 2018-02-11 14:51 | DI.RAD.S_ITS ---
PROCEDURE: PAIN L INTERLAMINAR/CAUDAL INJ INDICATIONS: RADICULOPATHY FINDINGS: Fluoroscopic spot filming was performed to verify placement of spinal needles at the paramedian L5-S1 level(s), as labeled on the films. Appropriate location(s) of the needle tip(s) was confirmed by injection of iodinated contrast. IMPRESSION: Successful needle tip localization for dorsal epidural injection L5-S1 through the interlaminar notch. Dictated by: Nitish Sexton M.D. on 02/11/2018 at 16:18 Approved by: Nitish Sexton M.D. on 02/11/2018 at 16:19
[2018-02-11] MEDS: MIDAZOLAM 5 MG/5 ML VIAL IV (15:24)
--- NOTE | 2018-02-11 15:28 | PC.NURSE ---
1st concious sedation start time of approx 1505 is incorrect. Got pt in position but before sedation meds given, IV noted to have failed. Started new IV. 2nd start time is true time.
[2018-02-11] MEDS: BUPIVACAINE 0.25% (PF) VIAL 2 ML INJ (15:30)
[2018-02-11] MEDS: methylPREDNISolone acetate 80 MG/ML VIAL INJ (15:30)
[2018-02-11] MEDS: IOPAMIDOL 15 ML VIAL 3 ML INJ (15:30)
[2018-02-11] MEDS: DEXAMETHASONE 10 MG/ML VIAL 20 MG INJ (15:30)
--- NOTE | 2018-02-11 15:31 | PC.NURSE ---
transporting pt to recovery room in stable condition
--- NOTE | 2018-02-11 15:36 | P.PCN_ITS ---
Procedures Date/Time Date of procedure: 02/11/18 Time of procedure: 15:34 General Procedure description: PROVIDER: Lei Ogden DO Operative Note PREOP DIAGNOSIS 1. HNP WITH RADICULAR FEATURES, 2. MULTILEVEL CENTRAL STENOSIS, POST OP DIAGNOSIS 1. HNP WITH RADICULAR FEATURES, 2. MULTILEVEL CENTRAL STENOSIS, PROCEDURES 1. FLUORSCOPICALLY GUIDED CONTRAST CONTROLLED INTERLAMINAR EPIDURAL STEROID INJECTION - L5/S1 PHYSICIAN: Lei Ogden DO INDICATIONS Alina is referred by Dr. Meyer for treatment of Bilateral Foraminal Stenosis L >R LE symptoms. FINDINGS Multilevel Central Spinal Stenosis with Nerve Root Compression DESCRIPTION OF PROCEDURE Fluoroscopically guided, contrast-controlled L5/S1 translaminar epidural steroid injection. Following denial of allergy and review of potential side effects and complications, including, but not necessarily limited to, infection, allergic reaction, local tissue breakdown, temporary as well as permanent nerve injury, paralysis, stroke and possible , the patient indicated that the patient understood and agreed to proceed. An informed consent document was signed by the patient, witnessed by a nurse, and placed in the patient's chart. Additionally, other treatment options including modalities, medications, and physical therapy were reviewed with the patient. After review of previous anaesthesic history and IV conscious sedation the patient was deemed safe to proceed with todays procedure with IV conscious sedation as ASA class II designation. Safety time-out was performed to confirm patient ID, procedure to be performed and site of procedure. IV sedation was accomplished with a combination of 3mg of Versed administered by the RN after DO order, titrated to patient comfort during the course of the procedure while the patient remained responsive to all verbal commands. In the prone position, following sterile prep and drape of the lumbar region, the L5/S1 translaminar space was identified fluoroscopically. The skin was anesthetized via a 25-gauge, 1.5-inch needle with 1% lidocaine solution. At this point, a 22-gauge short bevel spinal needle was atraumatically introduced and advanced under fluoroscopic guidance into the region of the L5/S1 translaminar space. Depth was confirmed on lateral view. Radiological data, including multiple fluoroscopic views of the lumbar spine, reveal a spinal needle at the L5/S1 translaminar space. Lateral views then show placement of the needle in the epidural space. Subsequent views show contrast material flowing superiorly and inferiorly in the epidural space. No vascular or intrathecal uptake is observed. At this point, using loss of resistance technique with saline and air, the epidural space was entered. This was confirmed following negative aspiration with injection of approximately 1.5 cc of Isovue 200, showing excellent epidural flow without vascular or intrathecal uptake. At this point, 1 cc of 1 % lidocaine solution combined with 3 cc or 20 mg of dexamethasone and 80mg Depo medrol was injected without incident. The patent tolerated the procedure without signs of symptoms of complications prior to transfer to the recovery area for further monitoring. The patient was then transferred to the recovery area where they were observed for an appropriate period of time after the injection. The patient reported a VAS score of 6 prior to the procedure and a post-procedure VAS of 0. Total Fluoroscopy Time: 11.8 seconds Total Conscious Sedation Time: 24min POST OP INSTRUCTIONS The patient was provided a Pain Log to continue to record their response to the target-specific procedure prior to follow-up visit with their referring physician. Additionally, specific post-injection care instructions and a contact number to our office were provided if concerns arise regarding possible complications associated with the procedure are suspected. Lei Ogden DO Complications: none
--- NOTE | 2018-02-11 15:41 | PC.NURSE ---
pt arrived to recovery room in stable condition
== END 2018-02-11 15:56 | disposition home or self-care (01) ==
LOC: RAD 14:50
PROVIDERS: PCP Family Medicine; Visit Provider Physical Medicine & Rehabilitation
DX: M51.17 Intervertebral disc disorders with radiculopathy, lumbosacral region (principal); M48.07 Spinal stenosis, lumbosacral region; M48.061 Spinal stenosis, lumbar region without neurogenic claudication
CPT/HCPCS: 62323; 99152; J1040; J1100; J2250

== ENCOUNTER 2018-06-20 12:11 | Inpatient (IN) | payer OTHER, MEDICAID, SELFPAY ==
[2018-06-20] VITALS (13 sets, daily range): BP systolic 116–163; BP diastolic 73–97; PULSE 95–116; RESP 17–29; TEMP 36.1–38.9; O2SAT 92–97; BMI 46.3
[2018-06-20] MEDS: ALBUTEROL 2.5 MG/3 ML NEB (ADULT) INH ×3 (12:21→13:53)
--- NOTE | 2018-06-20 12:24 | ED.SOB ---
HPI - SOB/Dyspnea General Chief Complaint: Shortness of Breath/Dyspnea Stated Complaint: SOB Time Seen by Provider: 06/20/18 12:17 Source: patient and EMS Mode of arrival: EMS Limitations: no limitations History of Present Illness This is a 37-year-old female who comes in with several days of shortness of breath, cough and difficulty breathing. Patient has a fever here in the emergency department. She states that she has been using her albuterol rescue inhaler quite frequently and states 12 times today she also has a steroid inhaler she uses twice daily regularly. Patient states she is not on any oral steroids currently. She states she has been coughing up some sort of brownish colored sputum. She is denying any chest pain but does feel very tight in her chest. She has had some nausea and vomiting this morning but no diarrhea or constipation. She denies any urinary issues or swelling in her extremities she states she has a history of asthma And takes medication for thyroid. She states that she has had hysterectomy in the past. She denies any tobacco use. She denies any prior hospitalizations for her asthma. She states she did have a flu shot this year. Related Data Previous Rx's Medication Instructions Recorded levothyroxine 100 mcg PO QAM #90 tab 08/11/17 ibuprofen 600 mg tablet 600 mg PO Q6HP PRN #20 tab 09/16/17 albuterol sulfate 2.5 mg INHALATION Q4-6H PRN #90 ml 12/31/17 albuterol sulfate HFA 90 2 puff INHALATION Q4HP PRN #1 each 02/05/18 mcg/actuation aerosol inhaler inhalational spacing device #1 each 02/05/18 risperidone 0.5 mg tablet See Rx Instructions PO QHS #60 tab 03/13/18 duloxetine [Cymbalta] 60 mg PO QDAY #90 cap 03/31/18 zolpidem [Ambien] 10 mg PO HS #90 tab 04/20/18 duloxetine 30 mg capsule,delayed 30 mg PO QDAY #30 cap 06/03/18 release methylphenidate 5 mg tablet See Rx Instructions PO BID #90 tab 06/05/18 amitriptyline 75 mg tablet 225 mg PO BEDTIME #90 tab 06/09/18 hydrocodone 5 mg-acetaminophen 325 1 tab PO Q6H #120 tab 06/17/18 mg tablet Allergies Allergy/AdvReac Type Severity Reaction Status Date / Time Penicillins [PENICILLINS] Allergy Unknown Verified 06/20/18 12:18 fluconazole [From DIFLUCAN] AdvReac Intermediate vomiting Verified 06/20/18 12:18 and abd pain codeine [CODEINE] AdvReac Mild NAUSEA Verified 06/20/18 12:18 Review of Systems Review of Systems ROS Unobtainable: All systems reviewed & are unremarkable except as noted in HPI and below Constitutional Reports chills, Reports fever(s) and Denies lethargy ENT Ears, Nose, Mouth, and Throat: Reports nasal congestion Cardiovascular Denies chest pain, Denies diaphoresis, Denies irregular heart rhythm, Denies leg edema, Denies lightheadedness, Denies palpitations, Reports dyspnea, Reports dyspnea on exertion and Denies orthopnea Respiratory Reports chest congestion, Reports cough, Denies hemoptysis, Reports excessive phlegm production ( Brownish), Denies pain on inspiration, Reports dyspnea, Reports dyspnea on exertion and Reports wheezing Gastrointestinal Gastrointestinal: Denies abdominal pain, Denies change in bowel habits, Denies diarrhea, Reports nausea and Reports vomiting Genitourinary Denies hematuria, Denies dysuria, Denies flank pain and Denies urinary urgency Endocrine Denies palpitations Allergic/Immunologic Reports wheezing PFSH Medical History Migraines (Acute) Fibromyalgia (Chronic ~05/2017) History of PCR DNA positive for HSV1 (Acute ~2014) Hypothyroidism (Chronic ~2008) Anxiety (Chronic) Asthma (Chronic) Depression (Chronic) Diverticular disease (Chronic ~2015) Irritable bowel syndrome (Chronic) Rheumatoid arthritis (Chronic) Surgical History Status post delivery (12/30/14) Status post laparoscopic supracervical hysterectomy (10/23/15) Status post laparoscopy (01/19/16) Status post surgery (07/07/12) Status post tubal ligation (12/30/14) Family History Grandmother Stroke Grandfather Heart disease Cancer Father Hypertension Social History Smoking Status: Current some day smoker Social History Smoking Status: Current some day smoker Exam Narrative Exam Narrative: GEN: obese female, alert and oriented x 3, patient appears to be in moderate distress. HEENT: Atraumatic, pupils are equal round reactive to light, extraocular movements are intact, nares are clear. HEART: tachycardic but regular rate and rhythm without murmur, clicks, rubs. No edema bilateral lower extremities. LUNGS:Lungs decreased bilaterally, mild wheeze bilaterally, patient has rhonchi throughout. Chest moves symmetrically, positive for tachypnea. Patient speaks in 2-3 word sentences. ABD:bowel sounds normal, soft, non-tender, no guarding, rebound, rigidity, no masses noted, no hepatosplenomegaly :No CVA tenderness MSCL: Non-tender, no muscle atrophy, full range of motion NEURO:CN 2-12 intact, sensation normal SKIN: no rash, no petechiae. Initial Vital Signs Initial Vital Signs: Vital Signs Temperature 102.0 F H 06/20/18 12:14 Pulse Rate 114 H 06/20/18 12:14 Respiratory Rate 21 06/20/18 12:14 Blood Pressure 163/95 H 06/20/18 12:14 Pulse Oximetry 92 06/20/18 12:14 Course Orders Ordered: ED Orders 06/20/18 12:21 Consult to Respiratory Therapy Evaluate & Treat 06/20/18 12:23 XR chest 1V Stat 06/20/18 12:30 Basic Metabolic Panel Stat Complete Blood Count AUTO DIFF Stat Magnesium Stat Procalcitonin Stat 06/20/18 12:50 Blood Culture Stat Lactate (Lactic Acid) Stat 06/20/18 13:00 Influenza A and B by PCR Rapid Stat 06/20/18 13:57 Urine Microscopic Stat 06/20/18 14:47 Education, smoking cessation ONGOING 06/20/18 14:58 Consult to Respiratory Therapy Evaluate & Treat 06/20/18 15:25 Sputum Induction and collectio Now 06/20/18 15:36 MRSA PCR Stat Respiratory Panel (Film Array) Stat 06/21/18 Basic Metabolic Panel Routine Complete Blood Count AUTO DIFF Routine Acetaminophen (Tylenol) 650 mg PO Q6HR PRN PRN Reason: As Needed for Fever/Mild Pain Hydrocodone Bitart/Acetaminophen ([place] 5/325) 1 tab PO Q4HR PRN PRN Reason: Pain, Moderate (4-6) Al Hydrox/Mg Hydrox/Simethicone (Maalox Plus) 30 ml PO Q6HR PRN PRN Reason: Dyspepsia Albuterol (Ventolin Hfa) 2 puff INH Q4H PRN PRN Reason: shortness of breath or wheezing Albuterol (Ventolin) 2.5 mg INH Q4H PRN PRN Reason: bronchospasm Albuterol/Ipratropium (Duoneb) 3 ml INH Q1H PRN PRN Reason: Shortness Of Breath Amitriptyline HCl (Elavil) 225 mg PO BEDTIME [facility] Calcium Carbonate (Tums) 1,000 mg PO Q4HR PRN PRN Reason: Dyspepsia Duloxetine HCl (Cymbalta) 90 mg PO BEDTIME [facility] Enoxaparin Sodium (Lovenox) 40 mg SUBCUT DAILY [facility] Ceftriaxone Sodium/Dextrose (Rocephin) 1 gm in 50 mls @ 100 mls/hr IV Q24H [facility] Azithromycin 500 mg/ Dextrose 250 mls @ 250 mls/hr IV Q24H [facility] Ibuprofen (Advil) 600 mg PO Q6HR PRN PRN Reason: As Needed for Fever/Mild Pain Levothyroxine Sodium (Synthroid) 100 mcg PO 0600 [facility] Methylprednisolone (Solu-Medrol 125 Mg Vial) 125 mg IV Q12H [facility] Stop: 06/26/18 02:59 Naloxone HCl (Narcan) 0.2 mg IV Q2MIN PRN PRN Reason: Opiate Reversal Ondansetron HCl (Zofran Odt) 4 mg PO Q8HR PRN PRN Reason: Nausea And Vomiting Risperidone (Risperdal) 0 mg PO BEDTIME [facility] Zolpidem Tartrate (Ambien) 10 mg PO BEDTIME [facility] Discontinued Medications Acetaminophen (Tylenol) 975 mg PO NOW ONE Stop: 06/20/18 12:58 Last Admin: 06/20/18 12:58 Dose: 975 mg Albuterol (Ventolin) 2.5 mg INH NOW PRN PRN Reason: Shortness Of Breath Or Wheezing Last Admin: 06/20/18 13:53 Dose: 2.5 mg Admin: 06/20/18 12:22 Dose: 2.5 mg Admin: 06/20/18 12:21 Dose: 2.5 mg Albuterol/Ipratropium (Duoneb) 3 ml INH NOW ONE Stop: 06/20/18 12:14 Last Admin: 06/20/18 12:56 Dose: Not Given Albuterol/Ipratropium (Duoneb) 3 ml INH NOW PRN PRN Reason: Shortness Of Breath Or Wheezing Duloxetine HCl (Cymbalta) 30 mg PO DAILY [facility] Lactated Ringer's (Lactated Ringers) 3,225.03 mls @ 1,075.01 mls/hr 30 ml/kg infuse over 3 hr (3225.03 ml) IV NOW ONE Stop: 06/20/18 15:23 Last Infusion: 06/20/18 15:10 Dose: 1,075.01 mls/hr Infusion: 06/20/18 14:00 Dose: 1,075.01 mls/hr Infusion: 06/20/18 13:45 Dose: 0 mls/hr Admin: 06/20/18 12:37 Dose: 1,075.01 mls/hr Azithromycin 500 mg/ Dextrose 250 mls @ 250 mls/hr IV NOW ONE Stop: 06/20/18 13:26 Last Infusion: 06/20/18 15:01 Dose: 250 mls/hr Infusion: 06/20/18 15:00 Dose: 250 mls/hr Infusion: 06/20/18 14:45 Dose: 0 mls/hr Admin: 06/20/18 13:52 Dose: 250 mls/hr Ceftriaxone Sodium/Dextrose (Rocephin) 1 gm in 50 mls @ 100 mls/hr IV NOW ONE Stop: 06/20/18 14:11 Last Infusion: 06/20/18 14:52 Dose: 0 mls/hr Admin: 06/20/18 14:35 Dose: 100 mls/hr Ibuprofen (Advil) 600 mg PO Q6H PRN PRN Reason: pain Methylprednisolone (Solu-Medrol 125 Mg Vial) 125 mg IV NOW ONE Stop: 06/20/18 12:22 Last Admin: 06/20/18 12:34 Dose: 125 mg Vital Signs - 8 hr 06/20/18 12:14 06/20/18 12:19 06/20/18 12:22 Temperature 102.0 F H Pulse Rate 114 H 116 H 114 H Respiratory Rate 21 25 H 29 H Blood Pressure 163/95 H Blood Pressure [Left Arm] 163/95 H Pulse Oximetry 92 94 97 06/20/18 12:58 06/20/18 13:00 06/20/18 13:50 Temperature 102 F H Pulse Rate 111 H 109 H Respiratory Rate 17 27 H Blood Pressure Blood Pressure [Left Arm] 145/73 H 160/97 H Pulse Oximetry 93 95 06/20/18 13:57 06/20/18 14:14 06/20/18 14:36 Temperature 99.3 F Pulse Rate 108 H 106 H Respiratory Rate 24 27 H Blood Pressure Blood Pressure [Left Arm] 116/76 Pulse Oximetry 97 94 06/20/18 15:25 Temperature 98.4 F Pulse Rate 106 H Respiratory Rate 28 H Blood Pressure 143/87 H Blood Pressure [Left Arm] Pulse Oximetry 94 MDM - SOB/Dyspnea Lab Data Attestation: I reviewed the patient's lab results. Result diagrams: 06/20/18 12:30 06/20/18 12:30 Lab Results 06/20/18 06/20/18 06/20/18 Range/Units 12:30 12:30 12:30 WBC 9.7 (4.5-11.0) X10^3/uL RBC 4.08 (4.0-5.2) X10^6/uL Hgb 11.5 L (12.0-16.0) g/dL Hct 35.9 L (36-46) % MCV 87.9 (80-100) fL MCH 28.3 (26-34) PG MCHC 32.2 (30-36) % RDW 15.3 H (11.6-14.8) % Plt Count 154 (150-400) X10^3/uL Neut % (Auto) 90.3 H (50-75) % Lymph % (Auto) 4.5 L (25-40) % [place] % (Auto) 4.1 (3-14) % Eos % (Auto) 0.7 L (2-4) % Baso % (Auto) 0.4 (0-2) % Neut # (Auto) 8800 H (8072-4952) /uL Lymph # (Auto) 400 L (6293-0275) /uL [place] # (Auto) 400 (0-900) /uL Eos # (Auto) 100 (0-450) /uL Baso # (Auto) 0 (0-100) /uL Sodium 138 (137-145) mmol/L Potassium 3.7 (3.4-5.1) mmol/L Chloride 97 L (98-107) mmol/L Carbon Dioxide 31 (22-32) mmol/L BUN 9 (7-17) mg/dL Creatinine 0.60 (0.52-1.04) mg/dL Estimated GFR > 60.0 (>60) mL/min BUN/Creatinine Ratio 15.0 (6-22) Glucose 123 H (70-100) mg/dL Lactate (0.7-2.1) mmol/L Calcium 9.0 (8.4-10.2) mg/dL Magnesium 2.1 (1.6-2.3) mg/dL Procalcitonin 2.83 H (<0.5) ng/mL Urine RBC (0-5/HPF) Urine WBC (0-5/HPF) Ur Squamous Epith Cells Amorphous Sediment Urine Bacteria (None) Ur Culture Indicated? Influenza A & B (PCR) (Negative) 06/20/18 06/20/18 06/20/18 Range/Units 12:50 13:00 13:57 WBC (4.5-11.0) X10^3/uL RBC (4.0-5.2) X10^6/uL Hgb (12.0-16.0) g/dL Hct (36-46) % MCV (80-100) fL MCH (26-34) PG MCHC (30-36) % RDW (11.6-14.8) % Plt Count (150-400) X10^3/uL Neut % (Auto) (50-75) % Lymph % (Auto) (25-40) % [place] % (Auto) (3-14) % Eos % (Auto) (2-4) % Baso % (Auto) (0-2) % Neut # (Auto) (6570-6177) /uL Lymph # (Auto) (8467-4120) /uL [place] # (Auto) (0-900) /uL Eos # (Auto) (0-450) /uL Baso # (Auto) (0-100) /uL Sodium (137-145) mmol/L Potassium (3.4-5.1) mmol/L Chloride (98-107) mmol/L Carbon Dioxide (22-32) mmol/L BUN (7-17) mg/dL Creatinine (0.52-1.04) mg/dL Estimated GFR (>60) mL/min BUN/Creatinine Ratio (6-22) Glucose (70-100) mg/dL Lactate 0.8 (0.7-2.1) mmol/L Calcium (8.4-10.2) mg/dL Magnesium (1.6-2.3) mg/dL Procalcitonin (<0.5) ng/mL Urine RBC None seen (0-5/HPF) Urine WBC 5-10/hpf H (0-5/HPF) Ur Squamous Epith Cells 5-10 /hpf H Amorphous Sediment 2+ Urine Bacteria None seen (None) Ur Culture Indicated? Cult not indicated Influenza A & B (PCR) Negative (Negative) Urine Dip Bedside Urine Glucose Negative Bedside Urine Bilirubin + 1 Bedside Urine Ketone +/- 5 Urine Specific [place] 1.015 Bedside Urine Occult Blood - Negative Bedside Urine pH 7.0 Bedside Urine Protein ++ 100 Bedside Urine Urobilinogen 1+ 2mg Bedside Urine Nitrite - Negative Bedside Urine Leukocytes +/- 15 Esterase Imaging Data Chest x-ray: Attestation: I personally reviewed and interpreted this imaging study as follows: My impression: patchy infiltrate consistent with pneumonia. Radiologist's impression: Alina Pal 37 F 1980 [place] [address] XRay Report Signed Patient: Alina Pal LMR#: [id number] : 1980Acct:[id number] Age/Sex: 37 / FDate of Service: 06/20/18 Loc: [id number] Accession Number: [id number] Procedure: XR chest 1V Ordering Provider: Precious Bauman D.O. PROCEDURE: XR CHEST 1V INDICATIONS: sob, wheeze, fevers, rhonchi on exam TECHNIQUE: One view of the chest was acquired. COMPARISON: [facility], , XR CHEST 2V, 12/31/2017, 20:33. FINDINGS: Surgical changes and devices: None. Lungs and pleura: The extensive fluffy multifocal alveolar opacity throughout the right medial lung. Mild diffuse interstitial thickening in the left perihilar region. No pleural effusions or pneumothorax. Mediastinum: Mediastinal contours appear normal. Heart size is at the upper limits of normal. Bones and chest wall: No suspicious bony lesions. Overlying soft tissues appear unremarkable. IMPRESSION: 1. Extensive multifocal right lung alveolar opacities, likely infectious or inflammation, although edema is not excluded. 2. Mildly enlarged heart size and left interstitial thickening. Correlate with BNP to exclude underlying CHF. Dictated by: Agnieszka Landry M.D. on 06/20/2018 at 14:30 Approved by: Agnieszka Landry M.D. on 06/20/2018 at 14:32 [facility] Narrative Medical decision making narrative: Patient drops to the 88% range on room air. She still rock wrist but no longer wheezy so not giving any additional neb treatment at this time. Patient received Solu-Medrol 125. Um I suspect combination of pneumonia along with asthma exacerbation. Patient's lab work does not show an elevated white count but her procalcitonin is elevated and she is febrile here in the department. Her electrolytes do not show major abnormalities. Patient's influenza swab has not returned yet. Patient started on azithromycin and Rocephin. Patient's electronic medical chart stated that she has an allergy to azithromycin and penicillin but patient states she does not have any medication allergies. Spoke with Dr. george hold her primary care physician who accepts. Discharge Plan Departure Patient Disposition: Admitted as Observation Clinical Impression: Pneumonia, Asthma exacerbation Discharge Date/Time: 06/20/18 15:11 Interventions: ED Discharge Assessment Last Done: 06/20/18 15:10 Referrals: Rebeca Meyer DO [Primary Care Provider] - Admit Date/Time: 06/20/18 14:24 Admit Provider: Rebeca Meyer
[2018-06-20] MEDS: methylPREDNISolone 125 MG/2 ML VIAL IV (12:34)
[2018-06-20 12:36] LABS: Add Manual Diff / Slide Review NO; Basophils Absolute Auto 0 /uL (0-100); Basophils Percent Auto 0.4 % (0-2); Eosinophils Absolute Auto 100 /uL (0-450); Eosinophils Percent Auto 0.7 % (2-4); Hematocrit 35.9 % (36-46); Hemoglobin 11.5 g/dL (12.0-16.0); Lymphocytes Absolute Auto 400 /uL (1100-4500); Lymphocytes Percent Auto 4.5 % (25-40); Mean Corpuscular HGB Conc 32.2 % (30-36); Mean Corpuscular Hemoglobin 28.3 PG (26-34); Mean Corpuscular Volume 87.9 fL (80-100); Monocytes Absolute Auto 400 /uL (0-900); Monocytes Percent Auto 4.1 % (3-14); Neutrophils Absolute Auto 8800 /uL (1500-7000); Neutrophils Percent Auto 90.3 % (50-75); Platelet Count 154 X10^3/uL (150-400); Red Blood Cell Count 4.08 X10^6/uL (4.0-5.2); Red Cell Distribution Width 15.3 % (11.6-14.8); White Blood Cell Count 9.7 X10^3/uL (4.5-11.0)
[2018-06-20] MEDS: LACTATED RINGERS 1075.01 ML IV (12:37)
[2018-06-20 12:54] LABS: Blood Urea Nitrogen 9 mg/dL (7-17); Carbon Dioxide 31 mmol/L (22-32); Chloride 97 mmol/L (98-107); Estimated Glomerular Filt Rate > 60.0 mL/min (>60); Glucose 123 mg/dL (70-100); HEMOLYSIS < 15 (0-50); Magnesium 2.1 mg/dL (1.6-2.3); Potassium 3.7 mmol/L (3.4-5.1); Sodium 138 mmol/L (137-145)
[2018-06-20] MEDS: ACETAMINOPHEN 325 MG TABLET 975 MG PO (12:58)
[2018-06-20 13:09] LABS: Lactate (Lactic Acid) 0.8 mmol/L (0.7-2.1)
[2018-06-20 13:10] LABS: Procalcitonin 2.83 ng/mL (<0.5)
--- NOTE | 2018-06-20 13:25 | ED_ITS ---
HPI - SOB/Dyspnea General Chief Complaint: Shortness of Breath/Dyspnea Stated Complaint: SOB Time Seen by Provider: 06/20/18 12:17 Source: patient and EMS Mode of arrival: EMS Limitations: no limitations History of Present Illness This is a 37-year-old female who comes in with several days of shortness of breath, cough and difficulty breathing. Patient has a fever here in the emergency department. She states that she has been using her albuterol rescue inhaler quite frequently and states 12 times today she also has a steroid inhale r she uses twice daily regularly. Patient states she is not on any oral steroids currently. She states she has been coughing up some sort of brownish colored sputum. She is denying any chest pain but does feel very tight in her chest. She has had some nausea and vomiting this morning but no diarrhea or constipation. She denies any urinary issues or swelling in her extremities she states she has a history of asthma And takes medication for thyroid. She states that she has had hysterectomy in the past. She denies any tobacco use. She denies any prior hospitalizations for her asthma. She states she did have a flu shot this year. Related Data Previous Rx's Medication Instructions Recorded levothyroxine 100 mcg PO QAM #90 tab 08/11/17 ibuprofen 600 mg tablet 600 mg PO Q6HP PRN #20 tab 09/16/17 albuterol sulfate 2.5 mg INHALATION Q4-6H PRN #90 ml 12/31/17 albuterol sulfate HFA 90 2 puff INHALATION Q4HP PRN #1 each 02/05/18 mcg/actuation aerosol inhaler inhalational spacing device #1 each 02/05/18 risperidone 0.5 mg tablet See Rx Instructions PO QHS #60 tab 03/13/18 duloxetine [Cymbalta] 60 mg PO QDAY #90 cap 03/31/18 zolpidem [Ambien] 10 mg PO HS #90 tab 04/20/18 duloxetine 30 mg capsule,delayed 30 mg PO QDAY #30 cap 06/03/18 release methylphenidate 5 mg tablet See Rx Instructions PO BID #90 tab 06/05/18 amitriptyline 75 mg tablet 225 mg PO BEDTIME #90 tab 06/09/18 hydrocodone 5 mg-acetaminophen 325 1 tab PO Q6H #120 tab 06/17/18 mg tablet Allergies Allergy/AdvReac Type Severity Reaction Status Date / Time Penicillins [PENICILLINS] Allergy Unknown Verified 06/20/18 12:18 fluconazole [From DIFLUCAN] AdvReac Intermediate vomiting Verified 06/20/18 12:18 and abd pain codeine [CODEINE] AdvReac Mild NAUSEA Verified 06/20/18 12:18 Review of Systems Review of Systems ROS Unobtainable: All systems reviewed & are unremarkable except as noted in HPI and below Constitutional Reports chills, Reports fever(s) and Denies lethargy ENT Ears, Nose, Mouth, and Throat: Reports nasal congestion Cardiovascular Denies chest pain, Denies diaphoresis, Denies irregular heart rhythm, Denies leg edema, Denies lightheadedness, Denies palpitations, Reports dyspnea, Reports dyspnea on exertion and Denies orthopnea Respiratory Reports chest congestion, Reports cough, Denies hemoptysis, Reports excessive phlegm production ( Brownish), Denies pain on inspiration, Reports dyspnea, Reports dyspnea on exertion and Reports wheezing Gastrointestinal Gastrointestinal: Denies abdominal pain, Denies change in bowel habits, Denies diarrhea, Reports nausea and Reports vomiting Genitourinary Denies hematuria, Denies dysuria, Denies flank pain and Denies urinary urgency Endocrine Denies palpitations Allergic/Immunologic Reports wheezing PFSH Medical History Migraines (Acute) Fibromyalgia (Chronic ~05/2017) History of PCR DNA positive for HSV1 (Acute ~2014) Hypothyroidism (Chronic ~2008) Anxiety (Chronic) Asthma (Chronic) Depression (Chronic) Diverticular disease (Chronic ~2015) Irritable bowel syndrome (Chronic) Rheumatoid arthritis (Chronic) Surgical History Status post delivery (12/30/14) Status post laparoscopic supracervical hysterectomy (10/23/15) Status post laparoscopy (01/19/16) Status post surgery (07/07/12) Status post tubal ligation (12/30/14) Family History Grandmother Stroke Grandfather Heart disease Cancer Father Hypertension Social History Smoking Status: Current some day smoker Social History Smoking Status: Current some day smoker Exam Narrative Exam Narrative: GEN: obese female, alert and oriented x 3, patient appears to be in moderate distress. HEENT: Atraumatic, pupils are equal round reactive to light, extraocular movements are intact, nares are clear. HEART: tachycardic but regular rate and rhythm without murmur, clicks, rubs. No edema bilateral lower extremities. LUNGS:Lungs decreased bilaterally, mild wheeze bilaterally, patient has rhonchi throughout. Chest moves symmetrically, positive for tachypnea. Patient speaks in 2-3 word sentences. ABD:bowel sounds normal, soft, non-tender, no guarding, rebound, rigidity, no masses noted, no hepatosplenomegaly :No CVA tenderness MSCL: Non-tender, no muscle atrophy, full range of motion NEURO:CN 2-12 intact, sensation normal SKIN: no rash, no petechiae. Initial Vital Signs Initial Vital Signs: Vital Signs Temperature 102.0 F H 06/20/18 12:14 Pulse Rate 114 H 06/20/18 12:14 Respiratory Rate 21 06/20/18 12:14 Blood Pressure 163/95 H 06/20/18 12:14 Pulse Oximetry 92 06/20/18 12:14 Course Orders Ordered: ED Orders 06/20/18 12:21 Consult to Respiratory Therapy Evaluate & Treat 06/20/18 12:23 XR chest 1V Stat 06/20/18 12:30 Basic Metabolic Panel Stat Complete Blood Count AUTO DIFF Stat Magnesium Stat Procalcitonin Stat 06/20/18 12:50 Blood Culture Stat Lactate (Lactic Acid) Stat 06/20/18 13:00 Influenza A and B by PCR Rapid Stat 06/20/18 13:57 Urine Microscopic Stat 06/20/18 14:47 Education, smoking cessation ONGOING 06/20/18 14:58 Consult to Respiratory Therapy Evaluate & Treat 06/20/18 15:25 Sputum Induction and collectio Now 06/20/18 15:36 MRSA PCR Stat Respiratory Panel (Film Array) Stat 06/21/18 Basic Metabolic Panel Routine Complete Blood Count AUTO DIFF Routine Acetaminophen (Tylenol) 650 mg PO Q6HR PRN PRN Reason: As Needed for Fever/Mild Pain Hydrocodone Bitart/Acetaminophen ([place] 5/325) 1 tab PO Q4HR PRN PRN Reason: Pain, Moderate (4-6) Al Hydrox/Mg Hydrox/Simethicone (Maalox Plus) 30 ml PO Q6HR PRN PRN Reason: Dyspepsia Albuterol (Ventolin Hfa) 2 puff INH Q4H PRN PRN Reason: shortness of breath or wheezing Albuterol (Ventolin) 2.5 mg INH Q4H PRN PRN Reason: bronchospasm Albuterol/Ipratropium (Duoneb) 3 ml INH Q1H PRN PRN Reason: Shortness Of Breath Amitriptyline HCl (Elavil) 225 mg PO BEDTIME [facility] Calcium Carbonate (Tums) 1,000 mg PO Q4HR PRN PRN Reason: Dyspepsia Duloxetine HCl (Cymbalta) 90 mg PO BEDTIME [facility] Enoxaparin Sodium (Lovenox) 40 mg SUBCUT DAILY [facility] Ceftriaxone Sodium/Dextrose (Rocephin) 1 gm in 50 mls @ 100 mls/hr IV Q24H [facility] Azithromycin 500 mg/ Dextrose 250 mls @ 250 mls/hr IV Q24H [facility] Ibuprofen (Advil) 600 mg PO Q6HR PRN PRN Reason: As Needed for Fever/Mild Pain Levothyroxine Sodium (Synthroid) 100 mcg PO 0600 [facility] Methylprednisolone (Solu-Medrol 125 Mg Vial) 125 mg IV Q12H [facility] Stop: 06/26/18 02:59 Naloxone HCl (Narcan) 0.2 mg IV Q2MIN PRN PRN Reason: Opiate Reversal Ondansetron HCl (Zofran Odt) 4 mg PO Q8HR PRN PRN Reason: Nausea And Vomiting Risperidone (Risperdal) 0 mg PO BEDTIME [facility] Zolpidem Tartrate (Ambien) 10 mg PO BEDTIME [facility] Discontinued Medications Acetaminophen (Tylenol) 975 mg PO NOW ONE Stop: 06/20/18 12:58 Last Admin: 06/20/18 12:58 Dose: 975 mg Albuterol (Ventolin) 2.5 mg INH NOW PRN PRN Reason: Shortness Of Breath Or Wheezing Last Admin: 06/20/18 13:53 Dose: 2.5 mg Admin: 06/20/18 12:22 Dose: 2.5 mg Admin: 06/20/18 12:21 Dose: 2.5 mg Albuterol/Ipratropium (Duoneb) 3 ml INH NOW ONE Stop: 06/20/18 12:14 Last Admin: 06/20/18 12:56 Dose: Not Given Albuterol/Ipratropium (Duoneb) 3 ml INH NOW PRN PRN Reason: Shortness Of Breath Or Wheezing Duloxetine HCl (Cymbalta) 30 mg PO DAILY [facility] Lactated Ringer's (Lactated Ringers) 3,225.03 mls @ 1,075.01 mls/hr 30 ml/kg infuse over 3 hr (3225.03 ml) IV NOW ONE Stop: 06/20/18 15:23 Last Infusion: 06/20/18 15:10 Dose: 1,075.01 mls/hr Infusion: 06/20/18 14:00 Dose: 1,075.01 mls/hr Infusion: 06/20/18 13:45 Dose: 0 mls/hr Admin: 06/20/18 12:37 Dose: 1,075.01 mls/hr Azithromycin 500 mg/ Dextrose 250 mls @ 250 mls/hr IV NOW ONE Stop: 06/20/18 13:26 Last Infusion: 06/20/18 15:01 Dose: 250 mls/hr Infusion: 06/20/18 15:00 Dose: 250 mls/hr Infusion: 06/20/18 14:45 Dose: 0 mls/hr Admin: 06/20/18 13:52 Dose: 250 mls/hr Ceftriaxone Sodium/Dextrose (Rocephin) 1 gm in 50 mls @ 100 mls/hr IV NOW ONE Stop: 06/20/18 14:11 Last Infusion: 06/20/18 14:52 Dose: 0 mls/hr Admin: 06/20/18 14:35 Dose: 100 mls/hr Ibuprofen (Advil) 600 mg PO Q6H PRN PRN Reason: pain Methylprednisolone (Solu-Medrol 125 Mg Vial) 125 mg IV NOW ONE Stop: 06/20/18 12:22 Last Admin: 06/20/18 12:34 Dose: 125 mg Vital Signs - 8 hr 06/20/18 12:14 06/20/18 12:19 06/20/18 12:22 Temperature 102.0 F H Pulse Rate 114 H 116 H 114 H Respiratory Rate 21 25 H 29 H Blood Pressure 163/95 H Blood Pressure [Left Arm] 163/95 H Pulse Oximetry 92 94 97 06/20/18 12:58 06/20/18 13:00 06/20/18 13:50 Temperature 102 F H Pulse Rate 111 H 109 H Respiratory Rate 17 27 H Blood Pressure Blood Pressure [Left Arm] 145/73 H 160/97 H Pulse Oximetry 93 95 06/20/18 13:57 06/20/18 14:14 06/20/18 14:36 Temperature 99.3 F Pulse Rate 108 H 106 H Respiratory Rate 24 27 H Blood Pressure Blood Pressure [Left Arm] 116/76 Pulse Oximetry 97 94 06/20/18 15:25 Temperature 98.4 F Pulse Rate 106 H Respiratory Rate 28 H Blood Pressure 143/87 H Blood Pressure [Left Arm] Pulse Oximetry 94 MDM - SOB/Dyspnea Lab Data Attestation: I reviewed the patient's lab results. Result diagrams: 06/20/18 12:30 06/20/18 12:30 Lab Results 06/20/18 06/20/18 06/20/18 Range/Units 12:30 12:30 12:30 WBC 9.7 (4.5-11.0) X10^3/uL RBC 4.08 (4.0-5.2) X10^6/uL Hgb 11.5 L (12.0-16.0) g/dL Hct 35.9 L (36-46) % MCV 87.9 (80-100) fL MCH 28.3 (26-34) PG MCHC 32.2 (30-36) % RDW 15.3 H (11.6-14.8) % Plt Count 154 (150-400) X10^3/uL Neut % (Auto) 90.3 H (50-75) % Lymph % (Auto) 4.5 L (25-40) % [place] % (Auto) 4.1 (3-14) % Eos % (Auto) 0.7 L (2-4) % Baso % (Auto) 0.4 (0-2) % Neut # (Auto) 8800 H (6378-8611) /uL Lymph # (Auto) 400 L (2302-6134) /uL [place] # (Auto) 400 (0-900) /uL Eos # (Auto) 100 (0-450) /uL Baso # (Auto) 0 (0-100) /uL Sodium 138 (137-145) mmol/L Potassium 3.7 (3.4-5.1) mmol/L Chloride 97 L (98-107) mmol/L Carbon Dioxide 31 (22-32) mmol/L BUN 9 (7-17) mg/dL Creatinine 0.60 (0.52-1.04) mg/dL Estimated GFR > 60.0 (>60) mL/min BUN/Creatinine Ratio 15.0 (6-22) Glucose 123 H (70-100) mg/dL Lactate (0.7-2.1) mmol/L Calcium 9.0 (8.4-10.2) mg/dL Magnesium 2.1 (1.6-2.3) mg/dL Procalcitonin 2.83 H (<0.5) ng/mL Urine RBC (0-5/HPF) Urine WBC (0-5/HPF) Ur Squamous Epith Cells Amorphous Sediment Urine Bacteria (None) Ur Culture Indicated? Influenza A & B (PCR) (Negative) 06/20/18 06/20/18 06/20/18 Range/Units 12:50 13:00 13:57 WBC (4.5-11.0) X10^3/uL RBC (4.0-5.2) X10^6/uL Hgb (12.0-16.0) g/dL Hct (36-46) % MCV (80-100) fL MCH (26-34) PG MCHC (30-36) % RDW (11.6-14.8) % Plt Count (150-400) X10^3/uL Neut % (Auto) (50-75) % Lymph % (Auto) (25-40) % [place] % (Auto) (3-14) % Eos % (Auto) (2-4) % Baso % (Auto) (0-2) % Neut # (Auto) (1543-1808) /uL Lymph # (Auto) (9686-8444) /uL [place] # (Auto) (0-900) /uL Eos # (Auto) (0-450) /uL Baso # (Auto) (0-100) /uL Sodium (137-145) mmol/L Potassium (3.4-5.1) mmol/L Chloride (98-107) mmol/L Carbon Dioxide (22-32) mmol/L BUN (7-17) mg/dL Creatinine (0.52-1.04) mg/dL Estimated GFR (>60) mL/min BUN/Creatinine Ratio (6-22) Glucose (70-100) mg/dL Lactate 0.8 (0.7-2.1) mmol/L Calcium (8.4-10.2) mg/dL Magnesium (1.6-2.3) mg/dL Procalcitonin (<0.5) ng/mL Urine RBC None seen (0-5/HPF) Urine WBC 5-10/hpf H (0-5/HPF) Ur Squamous Epith Cells 5-10 /hpf H Amorphous Sediment 2+ Urine Bacteria None seen (None) Ur Culture Indicated? Cult not indicated Influenza A & B (PCR) Negative (Negative) Urine Dip Bedside Urine Glucose Negative Bedside Urine Bilirubin + 1 Bedside Urine Ketone +/- 5 Urine Specific [place] 1.015 Bedside Urine Occult Blood - Negative Bedside Urine pH 7.0 Bedside Urine Protein ++ 100 Bedside Urine Urobilinogen 1+ 2mg Bedside Urine Nitrite - Negative Bedside Urine Leukocytes +/- 15 Esterase Imaging Data Chest x-ray: Attestation: I personally reviewed and interpreted this imaging study as follows: My impression: patchy infiltrate consistent with pneumonia. Radiologist's impression: Alina Pal 37 F 1980 [place] [address] XRay Report Signed Patient: Alina Pal LMR#: [id number] : 1980Acct:[id number] Age/Sex: 37 / FDate of Service: 06/20/18 Loc: [id number] Accession Number: [id number] Procedure: XR chest 1V Ordering Provider: Precious Bauman D.O. PROCEDURE: XR CHEST 1V INDICATIONS: sob, wheeze, fevers, rhonchi on exam TECHNIQUE: One view of the chest was acquired. COMPARISON: [facility], , XR CHEST 2V, 12/31/2017, 20:33. FINDINGS: Surgical changes and devices: None. Lungs and pleura: The extensive fluffy multifocal alveolar opacity throughout the right medial lung. Mild diffuse interstitial thickening in the left perihilar region. No pleural effusions or pneumothorax. Mediastinum: Mediastinal contours appear normal. Heart size is at the upper limits of normal. Bones and chest wall: No suspicious bony lesions. Overlying soft tissues appear unremarkable. IMPRESSION: 1. Extensive multifocal right lung alveolar opacities, likely infectious or inflammation, although edema is not excluded. 2. Mildly enlarged heart size and left interstitial thickening. Correlate with BNP to exclude underlying CHF. Dictated by: Agnieszka Landry M.D. on 06/20/2018 at 14:30 Approved by: Agnieszka Landry M.D. on 06/20/2018 at 14:32 [facility] Narrative Medical decision making narrative: Patient drops to the 88% range on room air. She still rock wrist but no longer wheezy so not giving any additional neb treatment at this time. Patient received Solu-Medrol 125. Um I suspect combination of pneumonia along with asthma exacerbation. Patient's lab work does not show an elevated white count but her procalcitonin is elevated and she is febrile here in the department. Her electrolytes do not show major abnormalities. Patient's influenza swab has not returned yet. Patient started on azithromycin and Rocephin. Patient's electronic medical chart stated that she has an allergy to azithromycin and penicillin but patient states she does not have any medication allergies. Spoke with Dr. george hold her primary care physician who accepts. Discharge Plan Departure Patient Disposition: Admitted as Observation Clinical Impression: Pneumonia, Asthma exacerbation Discharge Date/Time: 06/20/18 15:11 Interventions: ED Discharge Assessment Last Done: 06/20/18 15:10 Referrals: Rebeca Meyer DO [Primary Care Provider] - Admit Date/Time: 06/20/18 14:24 Admit Provider: Rebeca Meyer
[2018-06-20] MEDS: AZITHROMYCIN 500 MG in DEXTROSE 5% IN WATER 250 ML IV (13:52)
[2018-06-20 14:26] LABS: Influenza A and B by PCR Rapid Negative (Negative)
[2018-06-20] MEDS: CEFTRIAXONE 1 GM/50 ML FROZ.PIGGY IV (14:35)
[2018-06-20 14:48] LABS: Bacteria Urine None Seen; RBC Urine None Seen (0-5/HPF)
[2018-06-20 14:58] LABS: Squamous Epithelial Cell Urine 5-10 /HPF; WBC Urine 5-10/HPF (0-5/HPF)
[2018-06-20 14:59] LABS: Amorphous Sediment Urine 2+; Culture Indicated Urine Cult Not Indicated
--- NOTE | 2018-06-20 15:25 | P.HP_ITS ---
History of Present Illness Date Patient Seen: 06/20/18 Time Patient Seen: 14:36 Chief complaint: SOB Narrative: Patient is a 37-year-old morbidly obese female with longstanding history of asthma and environmental allergies. She has been having a progressively worse time breathing. She woke up in the middle of the night last night with an increased shortness of breath and cough. She has had a couple episodes of post-tussive emesis. She has tried to use her albuterol inhaler approximately 12 times without improvement. Her cough is productive of a dark yellowish green sputum. She has had a fever here in the emergency department. She feels a little bit better after treatment but still feels significantly short of breath. Patient History Medical History Migraines (Acute) Fibromyalgia (Chronic ~05/2017) History of PCR DNA positive for HSV1 (Acute ~2014) Hypothyroidism (Chronic ~2008) Anxiety (Chronic) Asthma (Chronic) Depression (Chronic) Diverticular disease (Chronic ~2015) Irritable bowel syndrome (Chronic) Rheumatoid arthritis (Chronic) Surgical History Status post delivery (12/30/14) Status post laparoscopic supracervical hysterectomy (10/23/15) Status post laparoscopy (01/19/16) Status post surgery (07/07/12) Status post tubal ligation (12/30/14) Family History Grandmother Stroke Grandfather Heart disease Cancer Father Hypertension Social History Smoking Status: Current some day smoker Family & Social History Safety & Behavioral: Feels Safe in Current Yes Environment Been Physically Hurt or No Threatened By a Person Tobacco & Substance use: Smoking Status Current some day smoker alcohol intake frequency 0-2 drinks per day Substance Use Type does not use Meds Home Medications Medication Instructions Recorded Confirmed Type levothyroxine 100 mcg PO QAM #90 tab 08/11/17 06/20/18 Rx ibuprofen 600 mg tablet 600 mg PO Q6HP PRN #20 tab 09/16/17 06/20/18 Rx albuterol sulfate 2.5 mg INHALATION Q4-6H PRN #90 ml 08/29/18 02/16/19 Rx albuterol sulfate HFA 90 2 puff INHALATION Q4HP PRN #1 each 02/05/18 06/20/18 Rx mcg/actuation aerosol inhaler inhalational spacing device #1 each 02/05/18 06/20/18 Rx risperidone 0.5 mg tablet See Rx Instructions PO QHS #60 tab 03/13/18 06/20/18 Rx duloxetine [Cymbalta] 60 mg PO QDAY #90 cap 03/31/18 06/20/18 Rx zolpidem [Ambien] 10 mg PO HS #90 tab 04/20/18 06/20/18 Rx duloxetine 30 mg capsule,delayed 30 mg PO QDAY #30 cap 06/03/18 06/20/18 Rx release methylphenidate 5 mg tablet See Rx Instructions PO BID #90 tab 06/05/18 06/20/18 Rx amitriptyline 75 mg tablet 225 mg PO BEDTIME #90 tab 06/09/18 06/20/18 Rx hydrocodone 5 mg-acetaminophen 325 1 tab PO Q6H #120 tab 06/17/18 06/20/18 Rx mg tablet Allergies Allergy/AdvReac Type Severity Reaction Status Date / Time Penicillins [PENICILLINS] Allergy Unknown Verified 06/20/18 12:18 fluconazole [From DIFLUCAN] AdvReac Intermediate vomiting Verified 06/20/18 12:18 and abd pain codeine [CODEINE] AdvReac Mild NAUSEA Verified 06/20/18 12:18 Review of Systems Review of Systems All systems reviewed & are unremarkable except as noted in HPI and below Exam Vital Signs (past 8 hours): - 06/20/18 12:14 06/20/18 12:19 06/20/18 12:22 Temperature 102.0 F H Pulse Rate 114 H 116 H 114 H Respiratory Rate 21 25 H 29 H Blood Pressure 163/95 H Blood Pressure [Left Arm] 163/95 H Pulse Oximetry 92 94 97 06/20/18 12:58 06/20/18 13:00 06/20/18 13:50 Temperature 102 F H Pulse Rate 111 H 109 H Respiratory Rate 17 27 H Blood Pressure Blood Pressure [Left Arm] 145/73 H 160/97 H Pulse Oximetry 93 95 06/20/18 13:57 06/20/18 14:14 06/20/18 14:36 Temperature 99.3 F Pulse Rate 108 H 106 H Respiratory Rate 24 27 H Blood Pressure Blood Pressure [Left Arm] 116/76 Pulse Oximetry 97 94 Oxygen Delivery Method Nasal Cannula Oxygen Flow Rate 2 Narrative Exam Narrative: General: Well-developed, well-nourished, female, no acute distress. Heart: Regular rate and rhythm, no murmurs appreciated Lungs: Coarse breath sounds bilaterally, diffuse expiratory wheezes, no rales or rhonchi Abd: BS+, soft, nontender, protuberant, no rebound, no guarding Extremities: Warm and well perfused, mild nonpitting edema bilaterally Objective Labs Result Diagrams: 06/20/18 12:30 06/20/18 12:30 Labs: Laboratory Results - last 24 hr 06/20/18 06/20/18 06/20/18 12:30 12:30 12:30 WBC 9.7 RBC 4.08 Hgb 11.5 L Hct 35.9 L MCV 87.9 MCH 28.3 MCHC 32.2 RDW 15.3 H Plt Count 154 Neut % (Auto) 90.3 H Lymph % (Auto) 4.5 L [place] % (Auto) 4.1 Eos % (Auto) 0.7 L Baso % (Auto) 0.4 Neut # (Auto) 8800 H Lymph # (Auto) 400 L [place] # (Auto) 400 Eos # (Auto) 100 Baso # (Auto) 0 Sodium 138 Potassium 3.7 Chloride 97 L Carbon Dioxide 31 BUN 9 Creatinine 0.60 Estimated GFR > 60.0 BUN/Creatinine Ratio 15.0 Glucose 123 H Lactate Calcium 9.0 Magnesium 2.1 Procalcitonin 2.83 H Urine RBC Urine WBC Ur Squamous Epith Cells Amorphous Sediment Urine Bacteria Ur Culture Indicated? Influenza A & B (PCR) 06/20/18 06/20/18 06/20/18 12:50 13:00 13:57 WBC RBC Hgb Hct MCV MCH MCHC RDW Plt Count Neut % (Auto) Lymph % (Auto) [place] % (Auto) Eos % (Auto) Baso % (Auto) Neut # (Auto) Lymph # (Auto) [place] # (Auto) Eos # (Auto) Baso # (Auto) Sodium Potassium Chloride Carbon Dioxide BUN Creatinine Estimated GFR BUN/Creatinine Ratio Glucose Lactate 0.8 Calcium Magnesium Procalcitonin Urine RBC None seen Urine WBC 5-10/hpf H Ur Squamous Epith Cells 5-10 /hpf H Amorphous Sediment 2+ Urine Bacteria None seen Ur Culture Indicated? Cult not indicated Influenza A & B (PCR) Negative Assessment & Plan Assessment & Plan narrative: Acute exacerbation of mild persistent asthma from community-acquired pneumonia. Will do a viral respiratory panel and sputum sample to determine if it may be viral. Influenza swab was negative. Otherwise will treat for the normal bacterial pathogens with ceftriaxone and azithromycin given her presentation of fever, elevated procalcitonin, and hypoxia, tachycardia. Her lactate was normal and she is usually mildly tachycardic in clinic so am less suspicious for sepsis however will be careful to monitor. S bianca-Medrol infrequent nebulizing treatments. Supplemental oxygen as needed, she is currently requiring 3 L. Will continue her current psychiatric medications as well as her pain medication regimen. Hydrocodone can double for cough suppression. Code status: Full code DVT prophylaxis: Lovenox Disposition: Patient is acutely hypoxic and is going to require supplemental oxygen as well as respiratory therapy treatments and parental steroids. This is likely going to take 48 hr. Time Spent With Patient Time with patient: Greater than 35 minutes
--- NOTE | 2018-06-20 15:35 | PC.NURSE ---
Addendum entered by Delaney Larson R.N. 06/20/18 17:39: 1735 - Respiratory panel came back positive for RSV. Dr. Meyer updated on result. Original Note: Addendum entered by Delaney Larson R.N. 06/20/18 16:44: 1640 - Clarified fluid orders and risperodone with Dr. Meyer. Also notified physician regarding patient's rash to hands, feet, and mouth. Original Note: 1525 - Patient admitted to room 106. Alert and oriented with pleasant affect. Denies pain at this time. Able to walk self to bathroom and to bed. 92% on 2L O2. Oriented to room and call light, call light within reach.
[2018-06-20] MEDS: ALBUTEROL/IPRATROPIUM 3 ML AMPUL INH ×2 (16:46→19:09)
[2018-06-20 17:14] LABS: Adenovirus Not Detected (Not Detect); Bordetella pertussis Not Detected (Not Detect); Chlamydophila pneumoniae Not Detected (Not Detect); Coronavirus 229E Not Detected (Not Detect); Coronavirus HKU1 Not Detected (Not Detect); Coronavirus NL 63 Not Detected (Not Detect); Coronavirus OC43 Not Detected (Not Detect); Human Metapneumovirus Not Detected (Not Detect); Human Rhinovirus/Enterovirus Not Detected (Not Detect); Influenza A Not Detected (Not Detect); Influenza B Not Detected (Not Detect); Mycoplasma pneumoniae Not Detected (Not Detect); Parainfluenza Virus 1 Not Detected (Not Detect); Parainfluenza Virus 2 Not Detected (Not Detect); Parainfluenza Virus 3 Not Detected (Not Detect); Parainfluenza Virus 4 Not Detected (Not Detect); Respiratory Syncytial Virus Detected (Not Detect)
[2018-06-20] MEDS: DULOXETINE 30 MG CAPSULE 90 MG PO (20:00)
[2018-06-20] MEDS: AMITRIPTYLINE 75 MG TABLET 225 MG PO (20:00)
[2018-06-20] MEDS: risperiDONE 0.25 MG TABLET 1 MG PO (20:00)
[2018-06-20] MEDS: ZOLPIDEM 5 MG TABLET 10 MG PO (20:00)
[2018-06-21] VITALS (16 sets, daily range): BP systolic 142–164; BP diastolic 78–110; PULSE 78–101; RESP 18–30; TEMP 36.1–37.1; O2SAT 92–98
[2018-06-21] MEDS: methylPREDNISolone 125 MG/2 ML VIAL IV (03:30)
[2018-06-21] MEDS: HYDROCODONE/ACET 5/325 TABLET 1 TAB PO (04:03)
[2018-06-21] MEDS: ALBUTEROL 2.5 MG/3 ML NEB (ADULT) INH ×2 (04:15→20:15)
[2018-06-21 05:26] LABS: Add Manual Diff / Slide Review NO; Basophils Absolute Auto 0 /uL (0-100); Basophils Percent Auto 0.2 % (0-2); Eosinophils Absolute Auto 0 /uL (0-450); Hematocrit 33.6 % (36-46); Lymphocytes Absolute Auto 600 /uL (1100-4500); Lymphocytes Percent Auto 6.3 % (25-40); Mean Corpuscular HGB Conc 32.8 % (30-36); Mean Corpuscular Hemoglobin 28.4 PG (26-34); Mean Corpuscular Volume 86.6 fL (80-100); Monocytes Absolute Auto 400 /uL (0-900); Monocytes Percent Auto 4.4 % (3-14); Neutrophils Absolute Auto 8300 /uL (1500-7000); Neutrophils Percent Auto 89.1 % (50-75); Platelet Count 146 X10^3/uL (150-400); Red Blood Cell Count 3.88 X10^6/uL (4.0-5.2); Red Cell Distribution Width 14.8 % (11.6-14.8); White Blood Cell Count 9.3 X10^3/uL (4.5-11.0)
[2018-06-21 05:44] LABS: Blood Urea Nitrogen 12 mg/dL (7-17); Carbon Dioxide 30 mmol/L (22-32); Chloride 103 mmol/L (98-107); Estimated Glomerular Filt Rate > 60.0 mL/min (>60); Glucose 149 mg/dL (70-100); HEMOLYSIS < 15 (0-50); Potassium 3.8 mmol/L (3.4-5.1); Sodium 141 mmol/L (137-145)
[2018-06-21] MEDS: ALBUTEROL/IPRATROPIUM 3 ML AMPUL INH ×4 (06:18→21:04)
[2018-06-21] MEDS: LEVOTHYROXINE 100 MCG TABLET PO (06:26)
[2018-06-21] MEDS: AZITHROMYCIN 500 MG in DEXTROSE 5% IN WATER 250 ML IV (11:31)
[2018-06-21] MEDS: ENOXAPARIN 40 MG/0.4 ML SYRINGE SUBCUT (11:31)
[2018-06-21] MEDS: methylPREDNISolone 125 MG/2 ML VIAL 40 MG IV ×2 (11:36→20:13)
[2018-06-21] MEDS: SODIUM CHLORIDE 0.9% FLUSH 10 ML IV ×3 (11:37→21:10)
--- NOTE | 2018-06-21 11:55 | CM.DANOTE ---
DCP: Case received, EMR reviewed and met with patient. Introduced self and role. DCP template completed with information currently available. Patient is a 37 year old female who admitted yesterday afternoon to the care of the hospitalist team. PCP: Dr. Meyer. Payer: confirmed: [facility] [employer]. Patient came to hospital via ambulance due to increased shortness of breath. She has a history of asthma, and did not get relief from her inhalers. Patient holds diagnosis of Acquired Pneumonia, as well as RSV, and is currently on isolation precautions. Patient is employed at [employer], and has spouse and children at home. Lives here in [place], and is independent. Met with her briefly, alert and oriented. P: DCP to continue to follow. Do anticipate that patient may be here a couple more days. Plan is for home when she is medically stable. Constanza Newsome RN/General Laborer
[2018-06-21] MEDS: CEFTRIAXONE 1 GM/50 ML FROZ.PIGGY IV (14:13)
--- NOTE | 2018-06-21 14:14 | PM.PN.1 ---
Subjective Date Patient Seen: 06/21/18 Time Patient Seen: 10:50 Interval history: Patient is sleeping this morning but easily arousable. She tells me that her breathing has improved somewhat overnight. She still needs supplemental oxygen. Has not been able to provide a sputum sample. Is not particularly hungry. Exam Vital Signs (past 8 hours): - 06/21/18 06:22 06/21/18 06:30 06/21/18 07:15 Temperature 96.9 F L Pulse Rate 96 H 96 H Respiratory Rate 18 23 Blood Pressure 146/78 H Pulse Oximetry 95 98 97 06/21/18 08:32 06/21/18 11:25 06/21/18 12:00 Temperature 97.3 F L Pulse Rate 90 98 H Respiratory Rate 22 24 Blood Pressure 142/95 H Pulse Oximetry 95 96 94 Oxygen Delivery Method Nasal Cannula Oxygen Flow Rate 2 Narrative Exam Narrative: General: Well-developed, well-nourished, female, no acute distress. Heart: Regular rate and rhythm, no murmurs appreciated Lungs: Coarse breath sounds bilaterally, diffuse expiratory wheezes, no rales or rhonchi Abd: BS+, soft, nontender, protuberant, no rebound, no guarding Extremities: Warm and well perfused, mild nonpitting edema bilaterally Objective Labs Result Diagrams: 06/21/18 04:48 06/21/18 04:48 Labs: Laboratory Results - last 24 hr 06/20/18 06/20/18 06/20/18 13:00 13:57 15:36 WBC RBC Hgb Hct MCV MCH MCHC RDW Plt Count Neut % (Auto) Lymph % (Auto) [place] % (Auto) Eos % (Auto) Baso % (Auto) Neut # (Auto) Lymph # (Auto) [place] # (Auto) Eos # (Auto) Baso # (Auto) Sodium Potassium Chloride Carbon Dioxide BUN Creatinine Estimated GFR BUN/Creatinine Ratio Glucose Calcium Urine RBC None seen Urine WBC 5-10/hpf H Ur Squamous Epith Cells 5-10 /hpf H Amorphous Sediment 2+ Urine Bacteria None seen Ur Culture Indicated? Cult not indicated Nasal Screen MRSA (PCR) Chlamy pneumoniae PCR Not detected Adenovirus (PCR) Not detected B.parapertussis DNA PCR Not detected Coronavirus OC43 (PCR) Not detected Coronavirus HKU1 (PCR) Not detected Coronavirus 229E (PCR) Not detected Coronavirus NL63 (PCR) Not detected Human Metapneumovir PCR Not detected Influenza Type A (PCR) Not detected Influenza Type B (PCR) Not detected Influenza A & B (PCR) Negative M. pneumoniae (PCR) Not detected Parainfluenza 1 (PCR) Not detected Parainfluenza 2 (PCR) Not detected Parainfluenza 3 (PCR) Not detected Parainfluenza 4 (PCR) Not detected RSV (PCR) Detected H Entero/Rhino (PCR) Not detected 06/20/18 06/21/18 06/21/18 15:36 04:48 04:48 WBC 9.3 RBC 3.88 L Hgb 11.0 L Hct 33.6 L MCV 86.6 MCH 28.4 MCHC 32.8 RDW 14.8 Plt Count 146 L Neut % (Auto) 89.1 H Lymph % (Auto) 6.3 L [place] % (Auto) 4.4 Eos % (Auto) 0.0 L Baso % (Auto) 0.2 Neut # (Auto) 8300 H Lymph # (Auto) 600 L [place] # (Auto) 400 Eos # (Auto) 0 Baso # (Auto) 0 Sodium 141 Potassium 3.8 Chloride 103 Carbon Dioxide 30 BUN 12 Creatinine 0.50 L Estimated GFR > 60.0 BUN/Creatinine Ratio 24.0 H Glucose 149 H Calcium 9.0 Urine RBC Urine WBC Ur Squamous Epith Cells Amorphous Sediment Urine Bacteria Ur Culture Indicated? Nasal Screen MRSA (PCR) Negative for mrsa Chlamy pneumoniae PCR Adenovirus (PCR) B.parapertussis DNA PCR Coronavirus OC43 (PCR) Coronavirus HKU1 (PCR) Coronavirus 229E (PCR) Coronavirus NL63 (PCR) Human Metapneumovir PCR Influenza Type A (PCR) Influenza Type B (PCR) Influenza A & B (PCR) M. pneumoniae (PCR) Parainfluenza 1 (PCR) Parainfluenza 2 (PCR) Parainfluenza 3 (PCR) Parainfluenza 4 (PCR) RSV (PCR) Entero/Rhino (PCR) Assessment & Plan Assessment & Plan narrative: Acute hypoxic respiratory failure from acute exacerbation of mild persistent asthma caused by community-acquired pneumonia. VRP showing RSV? Would not expect this degree of respiratory compromise in an adult so will continue with antibiotics for another day given her presentation of fever, elevated procalcitonin, and hypoxia, tachycardia. Continue Solu-Medrol frequent nebulizing treatments. Supplemental oxygen as needed, she is currently requiring 2 L. Morbid obesity likely contributing a restrictive component to her respiratory issues as well as susceptibility to infection. Not she is not using a controlled asthma med at baseline. Will continue her current psychiatric medications as well as her pain medication regimen. Hydrocodone can double for cough suppression. Code status: Full code DVT prophylaxis: Lovenox Disposition: Patient is acutely hypoxic and is going to require supplemental oxygen as well as respiratory therapy treatments and parental steroids. This is likely going to take 48 hr. Time Spent With Patient Time with patient: 25 - 35 minutes Quality VTE Deep Vein Thrombosis/Pulmonary Embolism Present on Admission: No
--- NOTE | 2018-06-21 14:17 | P.PN_ITS ---
Subjective Date Patient Seen: 06/21/18 Time Patient Seen: 10:50 Interval history: Patient is sleeping this morning but easily arousable. She tells me that her breathing has improved somewhat overnight. She still needs supplemental oxygen. Has not been able to provide a sputum sample. Is not particularly hungry. Exam Vital Signs (past 8 hours): - 06/21/18 06:22 06/21/18 06:30 06/21/18 07:15 Temperature 96.9 F L Pulse Rate 96 H 96 H Respiratory Rate 18 23 Blood Pressure 146/78 H Pulse Oximetry 95 98 97 06/21/18 08:32 06/21/18 11:25 06/21/18 12:00 Temperature 97.3 F L Pulse Rate 90 98 H Respiratory Rate 22 24 Blood Pressure 142/95 H Pulse Oximetry 95 96 94 Oxygen Delivery Method Nasal Cannula Oxygen Flow Rate 2 Narrative Exam Narrative: General: Well-developed, well-nourished, female, no acute distress. Heart: Regular rate and rhythm, no murmurs appreciated Lungs: Coarse breath sounds bilaterally, diffuse expiratory wheezes, no rales or rhonchi Abd: BS+, soft, nontender, protuberant, no rebound, no guarding Extremities: Warm and well perfused, mild nonpitting edema bilaterally Objective Labs Result Diagrams: 06/21/18 04:48 06/21/18 04:48 Labs: Laboratory Results - last 24 hr 06/20/18 06/20/18 06/20/18 13:00 13:57 15:36 WBC RBC Hgb Hct MCV MCH MCHC RDW Plt Count Neut % (Auto) Lymph % (Auto) [place] % (Auto) Eos % (Auto) Baso % (Auto) Neut # (Auto) Lymph # (Auto) [place] # (Auto) Eos # (Auto) Baso # (Auto) Sodium Potassium Chloride Carbon Dioxide BUN Creatinine Estimated GFR BUN/Creatinine Ratio Glucose Calcium Urine RBC None seen Urine WBC 5-10/hpf H Ur Squamous Epith Cells 5-10 /hpf H Amorphous Sediment 2+ Urine Bacteria None seen Ur Culture Indicated? Cult not indicated Nasal Screen MRSA (PCR) Chlamy pneumoniae PCR Not detected Adenovirus (PCR) Not detected B.parapertussis DNA PCR Not detected Coronavirus OC43 (PCR) Not detected Coronavirus HKU1 (PCR) Not detected Coronavirus 229E (PCR) Not detected Coronavirus NL63 (PCR) Not detected Human Metapneumovir PCR Not detected Influenza Type A (PCR) Not detected Influenza Type B (PCR) Not detected Influenza A & B (PCR) Negative M. pneumoniae (PCR) Not detected Parainfluenza 1 (PCR) Not detected Parainfluenza 2 (PCR) Not detected Parainfluenza 3 (PCR) Not detected Parainfluenza 4 (PCR) Not detected RSV (PCR) Detected H Entero/Rhino (PCR) Not detected 06/20/18 06/21/18 06/21/18 15:36 04:48 04:48 WBC 9.3 RBC 3.88 L Hgb 11.0 L Hct 33.6 L MCV 86.6 MCH 28.4 MCHC 32.8 RDW 14.8 Plt Count 146 L Neut % (Auto) 89.1 H Lymph % (Auto) 6.3 L [place] % (Auto) 4.4 Eos % (Auto) 0.0 L Baso % (Auto) 0.2 Neut # (Auto) 8300 H Lymph # (Auto) 600 L [place] # (Auto) 400 Eos # (Auto) 0 Baso # (Auto) 0 Sodium 141 Potassium 3.8 Chloride 103 Carbon Dioxide 30 BUN 12 Creatinine 0.50 L Estimated GFR > 60.0 BUN/Creatinine Ratio 24.0 H Glucose 149 H Calcium 9.0 Urine RBC Urine WBC Ur Squamous Epith Cells Amorphous Sediment Urine Bacteria Ur Culture Indicated? Nasal Screen MRSA (PCR) Negative for mrsa Chlamy pneumoniae PCR Adenovirus (PCR) B.parapertussis DNA PCR Coronavirus OC43 (PCR) Coronavirus HKU1 (PCR) Coronavirus 229E (PCR) Coronavirus NL63 (PCR) Human Metapneumovir PCR Influenza Type A (PCR) Influenza Type B (PCR) Influenza A & B (PCR) M. pneumoniae (PCR) Parainfluenza 1 (PCR) Parainfluenza 2 (PCR) Parainfluenza 3 (PCR) Parainfluenza 4 (PCR) RSV (PCR) Entero/Rhino (PCR) Assessment & Plan Assessment & Plan narrative: Acute hypoxic respiratory failure from acute exacerbation of mild persistent asthma caused by community-acquired pneumonia. VRP showing RSV? Would not expect this degree of respiratory compromise in an adult so will continue with antibiotics for another day given her presentation of fever, elevated procalcitonin, and hypoxia, tachycardia. Continue Solu- Medrol frequent nebulizing treatments. Supplemental oxygen as needed, she is currently requiring 2 L. Morbid obesity likely contributing a restrictive component to her respiratory issues as well as susceptibility to infection. Not she is not using a controlled asthma med at baseline. Will continue her current psychiatric medications as well as her pain medication regimen. Hydrocodone can double for cough suppression. Code status: Full code DVT prophylaxis: Lovenox Disposition: Patient is acutely hypoxic and is going to require supplemental oxygen as well as respiratory therapy treatments and parental steroids. This is likely going to take 48 hr. Time Spent With Patient Time with patient: 25 - 35 minutes Quality VTE Deep Vein Thrombosis/Pulmonary Embolism Present on Admission: No
[2018-06-21] MEDS: AMITRIPTYLINE 75 MG TABLET 225 MG PO (21:07)
[2018-06-21] MEDS: risperiDONE 0.25 MG TABLET 1 MG PO (21:07)
[2018-06-21] MEDS: DULOXETINE 30 MG CAPSULE 90 MG PO (21:10)
[2018-06-21] MEDS: AMLODIPINE 5 MG TABLET PO (22:30)
[2018-06-21] MEDS: ZOLPIDEM 5 MG TABLET 10 MG PO (22:30)
[2018-06-22] VITALS (11 sets, daily range): BP systolic 148–161; BP diastolic 83–94; PULSE 91–99; RESP 18–24; TEMP 36.2–36.8; O2SAT 90–98
[2018-06-22] MEDS: methylPREDNISolone 125 MG/2 ML VIAL 40 MG IV ×3 (03:15→19:09)
[2018-06-22] MEDS: SODIUM CHLORIDE 0.9% FLUSH 10 ML IV ×2 (03:15→21:38)
[2018-06-22] MEDS: LEVOTHYROXINE 100 MCG TABLET PO (05:05)
--- NOTE | 2018-06-22 07:39 | P.PN_ITS ---
Subjective Date Patient Seen: 06/22/18 Time Patient Seen: 07:33 Interval history: Patient is sleeping when I arrived this morning. Nasal cannula is around her neck. Oxygen saturations at 85%. Replaced nasal cannula and oxygen saturations increased to 92%. Patient also noted to have sleep apnea tells me that when she uses her CPAP she does not hear her alarm in the morning. Multiple cans of soda on her bedside tray. Exam Vital Signs (past 8 hours): - 06/22/18 00:00 06/22/18 00:53 06/22/18 04:34 Temperature 98.2 F Pulse Rate 99 H Respiratory Rate 22 Blood Pressure 148/85 H Pulse Oximetry 98 98 92 06/22/18 04:57 Temperature 97.3 F L Pulse Rate 91 H Respiratory Rate 24 Blood Pressure 161/94 H Pulse Oximetry 92 Oxygen Delivery Method Nasal Cannula,Humidification Oxygen Flow Rate 2 Narrative Exam Narrative: General: Well-developed, well-nourished, female, no acute distress. Heart: Regular rate and rhythm, no murmurs appreciated Lungs: Coarse breath sounds throughout, no wheezes, rales or rhonchi Extremities: Warm and well perfused Objective Labs Result Diagrams: 06/21/18 04:48 06/21/18 04:48 Assessment & Plan Assessment & Plan narrative: Acute hypoxic respiratory failure from acute exacerbation of mild persistent asthma caused by community-acquired pneumonia. VRP showing RSV? Would not expect this degree of respiratory compromise in an adult so will continue with antibiotics for another day given her presentation of fever, elevated procalcitonin, and hypoxia, tachycardia. Will repeat procalcitonin today. Continue Solu-Medrol frequent nebulizing treatments. Supplemental oxygen as needed, she is currently requiring 2 L. Morbid obesity l ikely contributing a restrictive component to her respiratory issues as well as susceptibility to infection. Note she is not using a controlled asthma med at baseline. Encourage ambulation today. Hypertension. Patient has a history of being treated for this intermittently prior to admission. Will give her 10 mg of amlodipine daily. Obstructive sleep apnea. Has had CPAP in the past. Will continue to discuss this to see if we can make this work. Will continue her current psychiatric medications as well as her pain medication regimen. Hydrocodone can double for cough suppression. Code status: Full code DVT prophylaxis: Lovenox Disposition: Patient remains hypoxic and is going to require supplemental oxygen as well as respiratory therapy treatments and parental steroids. This is likely going to take another 24-48 hours. Quality VTE Deep Vein Thrombosis/Pulmonary Embolism Present on Admission: No
[2018-06-22] MEDS: HYDROCODONE/ACET 5/325 TABLET 1 TAB PO ×2 (08:39→14:01)
[2018-06-22] MEDS: AMLODIPINE 5 MG TABLET 10 MG PO (08:39)
[2018-06-22] MEDS: IBUPROFEN 600 MG TABLET PO (08:43)
[2018-06-22] MEDS: ALBUTEROL/IPRATROPIUM 3 ML AMPUL INH ×3 (09:04→20:18)
[2018-06-22 09:49] LABS: Procalcitonin 0.82 ng/mL (<0.5)
[2018-06-22] MEDS: FLUTICASONE/SALMETEROL 250/50 14 PUFF DISKUS INH ×2 (11:24→20:18)
[2018-06-22] MEDS: AZITHROMYCIN 500 MG in DEXTROSE 5% IN WATER 250 ML IV (11:57)
[2018-06-22] MEDS: guaiFENesin/DEXTROMETH Syrup 5 ML SYRUP 10 ML PO (12:14)
[2018-06-22] MEDS: CEFTRIAXONE 1 GM/50 ML FROZ.PIGGY IV (14:01)
--- NOTE | 2018-06-22 14:13 | PC.NURSE ---
PT DOING BETTER THISSHIFT- STARTED ON MUCOLYTICS WELL ADVAIR LONG ACTING ASTHMA CONTROL RX- SHE HAS BEEN ON ROOM AIR WITH SPO2 93%+ MOST OF SHIFT- SHE SHOWERED AND HAS IMPROVING APPETITE- STILL UNABLE TO PRODUCE SPUTUM FOR SPEC- IV ABX CONTINUE- PRN VICODIN FOR C/O BODY ACHES.
[2018-06-22] MEDS: risperiDONE 0.25 MG TABLET 1 MG PO (21:33)
[2018-06-22] MEDS: AMITRIPTYLINE 75 MG TABLET 225 MG PO (21:34)
[2018-06-22] MEDS: ZOLPIDEM 5 MG TABLET 10 MG PO (21:37)
[2018-06-22] MEDS: DULOXETINE 30 MG CAPSULE 90 MG PO (21:38)
[2018-06-23] MEDS: methylPREDNISolone 125 MG/2 ML VIAL 40 MG IV ×2 (02:40→09:21)
[2018-06-23 02:45] VITALS: BP 141/76; PULSE 90; RESP 18; TEMP 36.4; O2SAT 92
[2018-06-23] MEDS: LEVOTHYROXINE 100 MCG TABLET PO (06:38)
[2018-06-23 06:48] VITALS: BP 161/114; PULSE 91; RESP 18; TEMP 36.4; O2SAT 93
[2018-06-23 07:22] VITALS: BP 161/98; PULSE 85; RESP 22; TEMP 36.9; O2SAT 93
[2018-06-23] MEDS: FLUTICASONE/SALMETEROL 250/50 14 PUFF DISKUS INH (07:31)
[2018-06-23] MEDS: ALBUTEROL/IPRATROPIUM 3 ML AMPUL INH (07:31)
[2018-06-23 07:41] VITALS: PULSE 84; O2SAT 93
[2018-06-23] MEDS: AMLODIPINE 5 MG TABLET 10 MG PO (08:18)
[2018-06-23] MEDS: SODIUM CHLORIDE 0.9% FLUSH 10 ML IV ×2 (08:19→09:25)
[2018-06-23] MEDS: guaiFENesin/DEXTROMETH Syrup 5 ML SYRUP 10 ML PO (08:21)
--- NOTE | 2018-06-23 08:53 | P.DS_ITS ---
History of Present Illness Chief complaint: SOB Narrative: Patient is a 37-year-old morbidly obese female with longstanding history of asthma and environmental allergies. She has been having a progressively worse time breathing. She woke up in the middle of the night last night with an increased shortness of breath and cough. She has had a couple episodes of post-tussive emesis. She has tried to use her albuterol inhaler approximately 12 times without improvement. Her cough is productive of a dark yellowish green sputum. She has had a fever here in the emergency department. She feels a little bit better after treatment but still feels significantly short of breath. Discharge Providers Date of admission: 06/20/18 14:24 Primary care physician: Rebeca Meyer DO Consults: 06/20/18 12:21 Consult to Respiratory Therapy Evaluate & Treat Comment: Physician Instructions: Evaluate and treat 06/20/18 14:58 Consult to Respiratory Therapy Evaluate & Treat Comment: Pneumonia with underlying asthma Physician Instructions: Evaluate and treat 06/22/18 07:41 Consult to Dietitian, Adult Routine Comment: Reason For Exam: morbid obesity, history of gestational diabetes Discharge provider: Rebeca Meyer DO Discharge Date: 06/23/18 Summary Discharge Diagnosis: Acute hypoxic respiratory failure Community acquired pneumonia RSV infection Moderate persistant asthma uncontrolled Hypertension Untreated obstructive sleep apnea Depression Chronic pain Hypothyroid Morbid obesity Hospital Course: Acute hypoxic respiratory failure from acute exacerbation of uncontrolled moderate persistent asthma caused by community-acquired pneumonia and RSV infection. She presented with fever, elevated procalcitonin, and hypoxia, tachycardia. She was treated with Solu-Medrol frequent nebulizing treatments. Supplemental oxygen. as needed, she is currently requiring 2 L. She was started on a controller medication which will be adjusted outpatient. Respiratory therapy to provide tubing for home nebulizer. Morbid obesity likely contributing a restrictive component to her respiratory issues as well as susceptibility to infection. Discussed reducing soda. Dietary consult. History of gestational diabetes increasing her risk for progressing to diabetes. Hypertension. Patient has a history of being treated for this intermittently prior to admission. Will continue amlodipine at discharge. Obstructive sleep apnea. Has had CPAP in the past. Will continue to discuss this to see if we can make this work going forward. Depression. Home medications continued. Hypothyroid. levothyroxine was continued. Chronic pain. Hydrocodone which can double for cough suppression. Code status: Full code DVT prophylaxis: Lovenox Status at Discharge Cognitive/behavioral status at discharge: at baseline Functional status at discharge: independent ambulation Overall status at discharge: patient is progressing back to baseline Time Spent with Patient Greater than 30 minutes Exam Vital Signs (past 8 hours): - 06/23/18 02:45 06/23/18 06:48 06/23/18 07:22 Temperature 97.5 F L 97.5 F L 98.5 F Pulse Rate 90 91 H 85 Respiratory Rate 18 18 22 Blood Pressure 141/76 H 161/114 H 161/98 H Pulse Oximetry 92 93 93 06/23/18 07:41 Temperature Pulse Rate 84 Respiratory Rate Blood Pressure Pulse Oximetry 93 Oxygen Delivery Method Room Air Oxygen Flow Rate 0 Narrative Exam Narrative: General: Well-developed, well-nourished, female, no acute distress. Heart: Regular rate and rhythm, no murmurs appreciated Lungs: Coarse breath sounds in the bases, no wheezes, rales or rhonchi Extremities: Warm and well perfused Objective Labs Result Diagrams: 06/21/18 04:48 06/21/18 04:48 Labs: Laboratory Results - last 24 hr 06/22/18 08:25 Procalcitonin 0.82 H Discharge Plan Discharge Plan Patient Disposition: Home Discharge Med Rec/Prescriptions Prescriptions: New Advair Diskus 250-50 mcg/dose Blister With Device 1 puff INH RTBID Qty: 1 RF: 0 amlodipine 5 mg tablet 5 mg PO DAILY Qty: 30 RF: 0 prednisone 10 mg tablet See Rx Instructions .ROUTE .COMPLEX Qty: 11 RF: 0 cefdinir 300 mg capsule 300 mg PO Q12H 5 Days Qty: 10 RF: 0 guaifenesin 100 mg/5 mL liquid 200 mg PO Q4H PRN (Reason: cold symptoms) Qty: 118 RF: 0 Continued levothyroxine 100 MCG tablet 100 mcg PO QAM Qty: 90 RF: 3 ibuprofen 600 mg tablet 600 mg PO Q6HP PRN (Reason: pain) Qty: 20 RF: 0 risperidone [Risperdal] 0.5 mg tablet See Rx Instructions PO QHS Qty: 60 RF: 1 duloxetine [Cymbalta] 60 mg capsule,delayed release(DR/EC) 60 mg PO QDAY Qty: 90 RF: 3 zolpidem [Ambien] 10 mg tablet 10 mg PO HS Qty: 90 RF: 3 duloxetine 30 mg capsule,delayed release(DR/EC) 30 mg PO QDAY Qty: 30 RF: 0 amitriptyline 75 mg tablet 225 mg PO BEDTIME Qty: 90 RF: 0 hydrocodone-acetaminophen 5-325 mg tablet 1 tab PO Q6H Qty: 120 RF: 0 albuterol sulfate [Ventolin HFA] 90 mcg/actuation HFA aerosol inhaler 2 puff INHALATION Q4HP PRN (Reason: shortness of breath or wheezing) Qty: 1 RF: 5 inhalational spacing device [Timmy Aerosol Sebastian Enhancer] spacer .ROUTE .MEDSUPPLY Qty: 1 RF: 0 methylphenidate HCl 5 mg tablet See Rx Instructions PO BID Qty: 90 RF: 0 albuterol sulfate 2.5 mg /3 mL (0.083 %) solution for nebulization 2.5 mg INHALATION Q4-6H PRN (Reason: bronchospasm) Qty: 90 RF: 0 Follow up/Referrals: Rebeca Meyer DO [Primary Care Provider] - 3-5 Days (She has appointment [facility] for 1:30 pm Friday06/26/2017) Provider Discharge Instructions Diet: Diet as Tolerated Diet comment: Watch refined sugars, especially soda Activity: ambulate 6 times daily Skin/Wound/Dressing Care Report to your healthcare provider any signs of infection, such as:: chills, fever and night sweats Discharge Data Primary Care Provider: Rebeca Meyer Attending Provider: Rebeca Meyer Admit Date/Time: 06/20/18 14:24 Quality VTE Deep Vein Thrombosis/Pulmonary Embolism Present on Admission: No
[2018-06-23] MEDS: AZITHROMYCIN 500 MG in DEXTROSE 5% IN WATER 250 ML IV (09:25)
[2018-06-23] MEDS: CEFTRIAXONE 1 GM/50 ML FROZ.PIGGY IV (10:46)
--- NOTE | 2018-06-23 12:01 | CM.DPC ---
DCP: continued: Dr. Meyer, pt's PCP, was here and ok'd pt for d/c to home. She will continue to work with pt on her ongoing health conditions in the outpt setting. Checked in with KENYON Mandel. She states pt has left for home with the PCP followup planned.
== END 2018-06-23 11:45 | disposition home or self-care (01) | DRG 193 ==
LOC: ED 14:01 → ICU 14:44 → AC 06-22 07:37 → ICU 06-22 07:37
PROVIDERS: Admitting Provider Family Medicine; Emergency Provider Emergency Medicine; PCP Family Medicine; Visit Provider Family Medicine
DX: J18.9 Pneumonia, unspecified organism (principal); J96.01 Acute respiratory failure with hypoxia; J45.31 Mild persistent asthma with (acute) exacerbation; Z68.43 Body mass index [BMI] 50.0-59.9, adult; E66.01 Morbid (severe) obesity due to excess calories; M79.7 Fibromyalgia; E03.9 Hypothyroidism, unspecified; F32.9 Major depressive disorder, single episode, unspecified; F17.210 Nicotine dependence, cigarettes, uncomplicated; G47.33 Obstructive sleep apnea (adult) (pediatric); J22 Unspecified acute lower respiratory infection; B97.4 Respiratory syncytial virus as the cause of diseases classified elsewhere; I10 Essential (primary) hypertension; G89.29 Other chronic pain
CPT/HCPCS: 36415; 36591; 71045; 80048; 81003; 81015; 83605; 83735; 84145; 85025; 87040; 87400; 87633; 87797; 94150; 94640; 94762; 96365; 96367; 96368; 96375; 99232; 99233; 99239; 99284; 99285; 99406; J1650; J2930; J7613

== ENCOUNTER 2018-08-12 14:55 | Outpatient (CLI) | payer OTHER, MEDICAID, SELFPAY ==
[2018-06-20 15:54] VITALS: BMI 46.3
[2018-08-12] VITALS (8 sets, daily range): BP systolic 117–150; BP diastolic 53–108; PULSE 100–109; RESP 16–18; TEMP 37.3; O2SAT 92–96
--- NOTE | 2018-08-12 14:56 | DI.RAD.S_ITS ---
PROCEDURE: PAIN L INTERLAMINAR/CAUDAL INJ INDICATIONS: RADICULOPATHY FINDINGS: Fluoroscopic spot filming was performed to verify placement of spinal needles at the L5-S1 level(s), as labeled on the films. Appropriate location(s) of the needle tip(s) was confirmed by injection of iodinated contrast. IMPRESSION: Posterior midline L5-S1 needle tip localization for translaminar epidural steroid injection at the lower lumbosacral spine. Dictated by: Nitish Sexton M.D. on 08/12/2018 at 16:48 Approved by: Nitish Sexton M.D. on 08/12/2018 at 16:49
[2018-08-12] MEDS: MIDAZOLAM 5 MG/5 ML VIAL IV (15:35)
[2018-08-12] MEDS: fentaNYL 100 MCG/2 ML INJ 50 MCG IV (15:40)
--- NOTE | 2018-08-12 15:50 | PC.NURSE ---
Pt tolerated procedure well. Able to get off table with standby assist. Transferred pt via wheelchair to pre procedure room for continued monitoring with Rhea PRESCOTT.
--- NOTE | 2018-08-12 15:58 | PM.PROC.1 ---
Procedures Date/Time Date of procedure: 08/12/18 Time of procedure: 15:58 General Procedure description: PROVIDER: Lei Ogden DO Operative Note PREOP DIAGNOSIS 1. HNP WITH RADICULAR FEATURES, 2. MULTILEVEL CENTRAL STENOSIS, POST OP DIAGNOSIS 1. HNP WITH RADICULAR FEATURES, 2. MULTILEVEL CENTRAL STENOSIS, PROCEDURES 1. FLUORSCOPICALLY GUIDED CONTRAST CONTROLLED INTERLAMINAR EPIDURAL STEROID INJECTION - L5/S1 PHYSICIAN: Lei Ogden DO INDICATIONS Alina is referred by Dr. Meyer for treatment of Bilateral Foraminal Stenosis L>R LE symptoms. FINDINGS Multilevel Central Spinal Stenosis with Nerve Root Compression DESCRIPTION OF PROCEDURE Fluoroscopically guided, contrast-controlled L5/S1 translaminar epidural steroid injection. Following denial of allergy and review of potential side effects and complications, including, but not necessarily limited to, infection, allergic reaction, local tissue breakdown, temporary as well as permanent nerve injury, paralysis, stroke and possible , the patient indicated that the patient understood and agreed to proceed. An informed consent document was signed by the patient, witnessed by a nurse, and placed in the patient's chart. Additionally, other treatment options including modalities, medications, and physical therapy were reviewed with the patient. After review of previous anaesthesic history and IV conscious sedation the patient was deemed safe to proceed with todays procedure with IV conscious sedation as ASA class II designation. Safety time-out was performed to confirm patient ID, procedure to be performed and site of procedure. IV sedation was accomplished with a combination of 3mg of Versed and 50mcg of Fentanyl administered by the RN after DO order, titrated to patient comfort during the course of the procedure while the patient remained responsive to all verbal commands. In the prone position, following sterile prep and drape of the lumbar region, the L5/S1 translaminar space was identified fluoroscopically. The skin was anesthetized via a 25-gauge, 1.5-inch needle with 1% lidocaine solution. At this point, a 22-gauge short bevel spinal needle was atraumatically introduced and advanced under fluoroscopic guidance into the region of the L5/S1 translaminar space. Depth was confirmed on lateral view. Radiological data, including multiple fluoroscopic views of the lumbar spine, reveal a spinal needle at the L5/S1 translaminar space. Lateral views then show placement of the needle in the epidural space. Subsequent views show contrast material flowing superiorly and inferiorly in the epidural space. No vascular or intrathecal uptake is observed. At this point, using loss of resistance technique with saline and air, the epidural space was entered. This was confirmed following negative aspiration with injection of approximately 1.5 cc of Isovue 200, showing excellent epidural flow without vascular or intrathecal uptake. At this point, 1 cc of 1% lidocaine solution combined with 2cc or 20mg of dexamethasone was injected without incident. The patent tolerated the procedure without signs of symptoms of complications prior to transfer to the recovery area for further monitoring. The patient was then transferred to the recovery area where they were observed for an appropriate period of time after the injection. The patient reported a VAS score of 6 prior to the procedure and a post-procedure VAS of 0. Total Fluoroscopy Time: 11.8 seconds Total Conscious Sedation Time: 24min POST OP INSTRUCTIONS The patient was provided a Pain Log to continue to record their response to the target-specific procedure prior to follow-up visit with their referring physician. Additionally, specific post-injection care instructions and a contact number to our office were provided if concerns arise regarding possible complications associated with the procedure are suspected. Lei Ogden DO Complications: none
[2018-08-12] MEDS: IOPAMIDOL 15 ML VIAL 3 ML INJ (16:02)
[2018-08-12] MEDS: BUPIVACAINE 0.25% (PF) VIAL 2 ML INJ (16:02)
[2018-08-12] MEDS: DEXAMETHASONE 10 MG/ML VIAL 20 MG INJ (16:02)
--- NOTE | 2018-08-12 16:04 | PC.NURSE ---
DR. GILES NOTIFIED PRE AND POST PROCEDURE OF TACHYCARDIA, AND LOW 02. PRE PROCEDURE DR. GILES HAD CONVERSATION WITH PT AND DECIDED IT WAS SAFE TO CONTINUE WITH PROCEDURE. POST PROC, VS ARE SIMILAR TO PRE PROCEDURE AND PT DENIES FEELING SOB, LIGHTHEADEDNESS, DIZZINESS. STATES I FEEL FINE.
== END 2018-08-12 16:35 | disposition home or self-care (01) ==
LOC: RAD 14:55
PROVIDERS: PCP Family Medicine; Visit Provider Physical Medicine & Rehabilitation
DX: M51.17 Intervertebral disc disorders with radiculopathy, lumbosacral region (principal)
CPT/HCPCS: 62323; 99152; J1100; J2250; J3010

== ENCOUNTER → 2018-08-27 16:56 | Outpatient (CLI) | payer OTHER, MEDICAID, SELFPAY ==
[2018-06-20 15:54] VITALS: BMI 46.3
[2018-08-27 18:40] LABS: Alanine Aminotransferase 67 IU/L (9-52); Albumin 4.4 g/dL (3.5-5.0); Albumin Globulin Ratio 1.5 (1.0-2.8); Alkaline Phosphatase 140 U/L (38-126); Aspartate Aminotransferase 58 IU/L (14-36); BUN Creatinine Ratio 12.9 (6-22); Bilirubin Total 0.5 mg/dL (0.2-1.3); Blood Urea Nitrogen 9 mg/dL (7-17); Calcium 9.8 mg/dL (8.4-10.2); Carbon Dioxide 31 mmol/L (22-32); Chloride 101 mmol/L (98-107); Estimated Glomerular Filt Rate > 60.0 mL/min (>60); Globulin 2.9 g/dL (1.7-4.1); Glucose 86 mg/dL (70-100); HEMOLYSIS < 15 (0-50); Potassium 4.4 mmol/L (3.4-5.1); Sodium 140 mmol/L (137-145); Total Protein 7.3 g/dL (6.3-8.2)
[2018-08-27 19:13] LABS: TSH w/ Reflex to FT4 2.62 uIU/mL (0.47-4.68)
== END ==
PROVIDERS: PCP Family Medicine; Visit Provider Family Medicine
DX: E03.9 Hypothyroidism, unspecified (principal); E66.01 Morbid (severe) obesity due to excess calories; R94.5 Abnormal results of liver function studies; Z68.41 Body mass index [BMI] 40.0-44.9, adult
CPT/HCPCS: 36415; 80053; 84443

== ENCOUNTER 2018-09-01 17:14 | Emergency (ER) | payer OTHER, MEDICAID, SELFPAY ==
[2018-06-20 15:54] VITALS: BMI 46.3
[2018-09-01 17:16] VITALS: BP 178/96; PULSE 105; RESP 22; TEMP 37.1; O2SAT 98
[2018-09-01] MEDS: ERYTHROMYCIN OPHTH 1 GM OINT 1 APPLIC EYE-RIGHT (22:15)
--- NOTE | 2018-09-01 22:15 | ED.EYEPROB ---
HPI - Eye Problem <Precious Lawson, [employer] - Last Filed: 09/01/18 22:19> General Chief complaint: Eye Problems Stated complaint: SOMETHING IN RIGHT EYE Time Seen by Provider: 09/01/18 20:15 Source: patient Mode of arrival: ambulatory Limitations: no limitations History of Present Illness HPI Narrative: The patient is a 37-year-old female nonsmoker with history of pneumonia who presents with a chief complaint of a foreign body sensation in her right eye. 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 She does not were contacts but occasionally wears glasses. She denies any blurry vision or double vision. She complains of some drainage. she states her vision is normal but she is sensitive to light. her tetanus is up-to-date. She denies any fevers nausea vomiting or diarrhea. Related Data Previous Rx's Medication Instructions Recorded ibuprofen 600 mg tablet 600 mg PO Q6HP PRN #20 tab 09/16/17 inhalational spacing device #1 each 02/05/18 amlodipine 5 mg PO DAILY #30 tab 06/23/18 fluticasone propion-salmeterol 1 puff INH RTBID #1 ea 06/23/18 [Advair Diskus] ipratropium-albuterol 0.5 mg-3 3 ml INHALATION Q4H PRN #180 ml 06/26/18 mg(2.5 mg base)/3 mL nebulization soln albuterol sulfate 2.5 mg/3 mL 2.5 mg INHALATION Q4-6H PRN #90 ml 06/29/18 (0.083 %) solution for nebulization albuterol sulfate HFA 90 2 puff INHALATION Q4HP PRN #1 each 06/29/18 mcg/actuation aerosol inhaler pregabalin 200 mg capsule 200 mg PO BID #60 cap 07/09/18 duloxetine 30 mg capsule,delayed 30 mg PO QDAY #90 cap 07/17/18 release risperidone 0.5 mg tablet See Rx Instructions PO QHS #60 tab 08/04/18 zolpidem ER 12.5 mg 12.5 mg PO BEDTIME PRN #30 tab 08/10/18 tablet,extended release,multiphase hydrocodone 5 mg-acetaminophen 325 1 tab PO Q6H #120 tab 08/12/18 mg tablet amitriptyline 75 mg tablet 225 mg PO BEDTIME #120 tab 08/21/18 levothyroxine 100 mcg tablet 100 mcg PO QAM #90 tab 08/21/18 methylphenidate 5 mg tablet 15 mg PO BID #180 tab 08/21/18 erythromycin 1 applictn EYE-RIGHT Q4H #3.5 gram 09/01/18 Allergies Allergy/AdvReac Type Severity Reaction Status Date / Time Penicillins [PENICILLINS] Allergy Unknown Verified 09/01/18 16:20 fluconazole [From DIFLUCAN] AdvReac Intermediate vomiting Verified 09/01/18 16:20 and abd pain codeine [CODEINE] AdvReac Mild NAUSEA Verified 09/01/18 16:20 Review of Systems <OMAR Weiner - Last Filed: 09/01/18 22:19> Review of Systems GENERAL: Denies chills, fatigue, malaise, fever, sweats. HEENT: See HPI RESPIRATORY: Denies dyspnea, cough, wheezing, hemoptysis, sputum. CARDIOVASCULAR: Denies chest pain, palpitations, orthopnea, edema, GASTROINTESTINAL: Denies nausea, vomiting, abdominal pain, diarrhea, constipation, melena. : Denies dysuria, frequency, incontinence, hematuria, urinary retention. MUSCULOSKELETAL: denies weakness, joint pain, or bony pain SKIN: Denies rash, skin lesions, or other NEUROLOGIC: Denies weakness, headache, numbness, change in speech, confusion, seizures, incoordination. PSYCHIATRIC: No concerning psychosocial issues. 12 point review of systems is negative except for those stated above PFSH <OMAR Weiner - Last Filed: 09/01/18 22:19> Medical History Migraines (Acute) Fibromyalgia (Chronic ~05/2017) History of PCR DNA positive for HSV1 (Acute ~2014) Hypothyroidism (Chronic ~2008) Anxiety (Chronic) Asthma (Chronic) Depression (Chronic) Diverticular disease (Chronic ~2015) Irritable bowel syndrome (Chronic) Rheumatoid arthritis (Chronic) Surgical History Status post delivery (12/30/14) Status post laparoscopic supracervical hysterectomy (10/23/15) Status post laparoscopy (01/19/16) Status post surgery (07/07/12) Status post tubal ligation (12/30/14) Family History Grandmother Stroke Grandfather Heart disease Cancer Father Hypertension Social History household members: spouse and children Smoking Status: Current some day smoker Family History Grandmother Stroke Grandfather Heart disease Cancer Father Hypertension Social History household members: spouse and children Smoking Status: Current some day smoker Exam <OMAR Weiner - Last Filed: 09/01/18 22:19> Narrative Exam Narrative: GENERAL: This is a well-nourished, well-developed patient, no acute distress HEAD: Atraumatic. Normocephalic. No temporal or scalp tenderness. EYES: Pupils equal round and reactive. Extraocular motions intact. No scleral icterus. Slight purulent drainage noted lateral aspect of right eye with some flaking. 2 mm corneal abrasion noted with fluorescein exam. No obvious foreign body on exam. Injection noted right sclera. ENT: Nose without bleeding, purulent drainage or septal hematoma. Throat without erythema, tonsillar hypertrophy or exudate. Uvula midline. Airway patent. NECK: Trachea midline. No JVD or lymphadenopathy. Supple, nontender, no meningeal signs. CARDIOVASCULAR: Regular rate and rhythm RESPIRATORY: No cough. No increased respiratory effort. EXTREMITIES: No clubbing, cyanosis, or edema. No joint tenderness, effusion, or edema noted. BACK: Nontender without deformity or crepitance. No flank tenderness. NEURO: AOx3. SKIN: No rash or erythema. Initial Vital Signs Initial Vital Signs: Vital Signs Temperature 98.8 F 09/01/18 17:16 Pulse Rate 105 H 09/01/18 17:16 Respiratory Rate 22 09/01/18 17:16 Blood Pressure 178/96 H 09/01/18 17:16 Pulse Oximetry 98 09/01/18 17:16 <Marvel Coy DO - Last Filed: 09/01/18 22:24> Initial Vital Signs Initial Vital Signs: Vital Signs Temperature 98.8 F 09/01/18 17:16 Pulse Rate 105 H 09/01/18 17:16 Respiratory Rate 22 09/01/18 17:16 Blood Pressure 178/96 H 09/01/18 17:16 Pulse Oximetry 98 09/01/18 17:16 Course <OMAR Weiner - Last Filed: 09/01/18 22:19> Orders Ordered: Discontinued Medications Erythromycin (Erythromycin Ophth Oint) 1 applic EYE-RIGHT NOW ONE Stop: 09/01/18 21:31 Last Admin: 09/01/18 22:15 Dose: 1 applic Vital Signs - 8 hr 09/01/18 17:16 09/01/18 22:20 Temperature 98.8 F Pulse Rate 105 H 90 Respiratory Rate 22 22 Blood Pressure 178/96 H 150/107 H Pulse Oximetry 98 95 <Marvel Coy DO - Last Filed: 09/01/18 22:24> Orders Ordered: Discontinued Medications Erythromycin (Erythromycin Ophth Oint) 1 applic EYE-RIGHT NOW ONE Stop: 09/01/18 21:31 Last Admin: 09/01/18 22:15 Dose: 1 applic Vital Signs - 8 hr 09/01/18 17:16 09/01/18 22:20 Temperature 98.8 F Pulse Rate 105 H 90 Respiratory Rate 22 22 Blood Pressure 178/96 H 150/107 H Pulse Oximetry 98 95 MDM - Eye Problem <OMAR Weiner - Last Filed: 09/01/18 22:19> [facility] Narrative Medical decision making narrative: The patient is a 37-year-old female presents with chief complaint of foreign body sensation in her right eye. There was no obvious foreign body. I did treat her for a corneal abrasion that was apparent on fluorescein exam with erythromycin. I discussed at length follow up with her eye provider if worsening or no improvement. Discussed return precautions to the emergency department including visual deficit. Her visual acuity is the same bilaterally in her pupils are equal round reactive and she is pain free when she is not having light shined in her eyes in the emergency department. Patient has no questions or concerns upon discharge. Discharge Plan Departure Patient Disposition: Home Clinical Impression: Abrasion, corneal Qualifiers: Encounter type: initial encounter Laterality: right Qualified Code(s): S05.01XA - Injury of conjunctiva and corneal abrasion without foreign body, right eye, initial encounter Discharge Date/Time: 09/01/18 22:21 Interventions: ED Discharge Assessment Last Done: 09/01/18 22:20 Instructions: DI for Corneal Abrasion Activity Restrictions/Additional Instructions: Lets start you on antibiotics for a corneal abrasion. Please follow up with your eye doctor if you know no improvement, or have any concerns. Come back to the emergency department for any acute vision changes etc. Please follow up with primary care provider. Prescriptions: New erythromycin 5 mg/gram (0.5 %) ointment 1 applictn EYE-RIGHT Q4H Qty: 3.5 RF: 0 No Action ibuprofen 600 mg tablet 600 mg PO Q6HP PRN (Reason: pain) Qty: 20 RF: 0 albuterol sulfate 2.5 mg /3 mL (0.083 %) solution for nebulization 2.5 mg INHALATION Q4-6H PRN (Reason: bronchospasm) Qty: 90 RF: 0 Ventolin HFA 90 mcg/actuation HFA aerosol inhaler 2 puff INHALATION Q4HP PRN (Reason: shortness of breath or wheezing) Qty: 1 RF: 5 duloxetine 30 mg capsule,delayed release(DR/EC) 30 mg PO QDAY Qty: 90 RF: 1 risperidone [Risperdal] 0.5 mg tablet See Rx Instructions PO QHS Qty: 60 RF: 1 zolpidem 12.5 mg tablet,ext release multiphase 12.5 mg PO BEDTIME PRN (Reason: insomnia) Qty: 30 RF: 0 hydrocodone-acetaminophen 5-325 mg tablet 1 tab PO Q6H Qty: 120 RF: 0 amitriptyline 75 mg tablet 225 mg PO BEDTIME Qty: 120 RF: 0 levothyroxine 100 mcg tablet 100 mcg PO QAM Qty: 90 RF: 3 methylphenidate HCl 5 mg tablet 15 mg PO BID Qty: 180 RF: 0 inhalational spacing device [Timmy Aerosol [place] Enhancer] spacer .ROUTE .MEDSUPPLY Qty: 1 RF: 0 pregabalin 200 mg capsule 200 mg PO BID Qty: 60 RF: 1 ipratropium-albuterol 0.5 mg-3 mg(2.5 mg base)/3 mL solution for nebulization 3 ml INHALATION Q4H PRN (Reason: shortness of breath or wheezing) Qty: 180 RF: 0 Advair Diskus 250-50 mcg/dose Blister With Device 1 puff INH RTBID Qty: 1 RF: 0 amlodipine 5 mg tablet 5 mg PO DAILY Qty: 30 RF: 0 Referrals: Rebeca Meyer DO [Primary Care Provider] - <Marvel Coy DO - Last Filed: 09/01/18 22:24> Cosign ED Attending Roberto Attestation: I was available for consultation during this patient's emergency department encounter
[2018-09-01 22:20] VITALS: BP 150/107; PULSE 90; RESP 22; O2SAT 95
== END 2018-09-01 22:21 | disposition home or self-care (01) ==
PROVIDERS: Emergency Provider Nurse Practitioner Family; Family Provider Family Medicine; PCP Family Medicine
DX: S05.01XA Injury of conjunctiva and corneal abrasion without foreign body, right eye, initial encounter (principal)
CPT/HCPCS: 99283

== ENCOUNTER 2018-10-23 17:41 | Emergency (ER) | payer OTHER, MEDICAID, SELFPAY ==
[2018-09-22 12:32] VITALS: BMI 46.3
[2018-10-23 17:44] VITALS: BP 167/102; PULSE 114; RESP 22; TEMP 37.7; O2SAT 99
--- NOTE | 2018-10-23 18:00 | DI.RAD.S_ITS ---
PROCEDURE: XR KNEE LT 3V INDICATIONS: fall, joint swollen and hot. TECHNIQUE: 3 views of the knee were acquired. COMPARISON: None. FINDINGS: Bones: No fractures or dislocations. No suspicious bony lesions. Soft tissues: No joint effusion. No suspicious soft tissue calcifications. IMPRESSION: No gross acute left knee fracture or dislocation. No significant joint effusion. Dictated by: Patrick Leroy M.D. on 10/23/2018 at 18:51 Approved by: Patrick Leroy M.D. on 10/23/2018 at 18:53
--- NOTE | 2018-10-23 18:00 | DI.RAD.S_ITS ---
PROCEDURE: XR CHEST 1V INDICATIONS: suspected sepsis TECHNIQUE: One view of the chest was acquired. COMPARISON: [facility], CR, XR CHEST 1V, 06/20/2018, 12:40. FINDINGS: Surgical changes and devices: Mild pulmonary vascular congestion is seen. No definite focal infiltrate. Lungs and pleura: Lungs are clear. No pleural effusions or pneumothorax. Mediastinum: Mediastinal contours appear normal. Heart size is enlarged. Bones and chest wall: No suspicious bony lesions. Overlying soft tissues appear unremarkable. IMPRESSION: Mild congestion. No focal infiltrate, pleural effusion or pneumothorax. Dictated by: Patrick Leroy M.D. on 10/23/2018 at 18:48 Approved by: Patrick Leroy M.D. on 10/23/2018 at 18:49
[2018-10-23] MEDS: ONDANSETRON 4 MG/2 ML INJ IV (18:18)
[2018-10-23] MEDS: SODIUM CHLORIDE 0.9% 1,000 ML 1000 ML IV (18:18)
[2018-10-23 18:29] LABS: Prothrombin Time 11.2 SECONDS (10.1-12.7)
[2018-10-23 18:30] LABS: Add Manual Diff / Slide Review NO; Basophils Absolute Auto 0 /uL (0-100); Basophils Percent Auto 0.2 % (0-2); Eosinophils Absolute Auto 0 /uL (0-450); Hematocrit 39.3 % (36-46); Hemoglobin 12.9 g/dL (12.0-16.0); Lymphocytes Absolute Auto 700 /uL (1100-4500); Lymphocytes Percent Auto 5.4 % (25-40); Mean Corpuscular HGB Conc 32.8 % (30-36); Mean Corpuscular Hemoglobin 27.8 PG (26-34); Mean Corpuscular Volume 84.5 fL (80-100); Monocytes Absolute Auto 600 /uL (0-900); Monocytes Percent Auto 4.4 % (3-14); Neutrophils Absolute Auto 11200 /uL (1500-7000); Platelet Count 328 X10^3/uL (150-400); Red Blood Cell Count 4.64 X10^6/uL (4.0-5.2); Red Cell Distribution Width 14.7 % (11.6-14.8); White Blood Cell Count 12.4 X10^3/uL (4.5-11.0)
[2018-10-23 18:32] LABS: PTT Partial Thromboplastin Tim 28 SECONDS (26.4-36.2)
[2018-10-23 18:33] LABS: Alanine Aminotransferase 11 IU/L (9-52); Albumin 4.5 g/dL (3.5-5.0); Albumin Globulin Ratio 1.4 (1.0-2.8); Alkaline Phosphatase 126 U/L (38-126); Aspartate Aminotransferase 20 IU/L (14-36); BUN Creatinine Ratio 23.3 (6-22); Bilirubin Total 0.3 mg/dL (0.2-1.3); Blood Urea Nitrogen 14 mg/dL (7-17); Calcium 9.7 mg/dL (8.4-10.2); Carbon Dioxide 27 mmol/L (22-32); Chloride 103 mmol/L (98-107); Estimated Glomerular Filt Rate > 60.0 mL/min (>60); Globulin 3.2 g/dL (1.7-4.1); Glucose 135 mg/dL (70-100); HEMOLYSIS 32 (0-50); Lactate (Lactic Acid) 1.7 mmol/L (0.7-2.1); Lipase 81 U/L (23-300); Potassium 4.2 mmol/L (3.4-5.1); Sodium 140 mmol/L (137-145); Total Protein 7.7 g/dL (6.3-8.2)
[2018-10-23 18:44] LABS: C-Reactive Protein Quant 0.6 mg/dL (<1.0)
--- NOTE | 2018-10-23 18:50 | ED.FALL ---
HPI - Fall General Chief Complaint: Fall Stated Complaint: fall couple days ago, multiple wounds Time Seen by Provider: 10/23/18 18:49 Source: patient Mode of arrival: ambulatory Limitations: no limitations History of Present Illness HPI Narrative: The patient tripped and fell onto pavement 2 days ago. She landed primarily on the left knee. She comes in now with significant swelling, ecchymosis and pain to the left knee. She is ambulatory but with significant pain. She has no numbness or weakness in the leg distal to the injury. She has no associated head, torso or upper extremity pain. The right leg is atraumatic. She complains of no neck or back pain. Additionally she has been ill. She has had productive cough with a subjective fever. She is a cigarette smoker. She was treated for pneumonia June 2018. She has no asthma or allergies. She does not have chronic lung issues. She has no chest pain or cardiac issues. She has no associated sinus pressure sore throat. She denies abdominal discomfort, nausea, vomiting or diarrhea. She has no urinary complaints. Related Data Previous Rx's Medication Instructions Recorded ibuprofen 600 mg tablet 600 mg PO Q6HP PRN #20 tab 09/16/17 inhalational spacing device #1 each 02/05/18 ipratropium-albuterol 0.5 mg-3 3 ml INHALATION Q4H PRN #180 ml 06/26/18 mg(2.5 mg base)/3 mL nebulization soln albuterol sulfate HFA 90 2 puff INHALATION Q4HP PRN #1 each 06/29/18 mcg/actuation aerosol inhaler pregabalin 200 mg capsule 200 mg PO BID #60 cap 07/09/18 duloxetine 30 mg capsule,delayed 30 mg PO QDAY #90 cap 07/17/18 release erythromycin 1 applictn EYE-RIGHT Q4H #3.5 gram 09/01/18 budesonide 0.25 mg/2 mL suspension 2 ml INHALATION BID #120 ml 09/17/18 for nebulization levothyroxine 112 mcg tablet 112 mcg PO DAILY #90 tab 09/17/18 albuterol sulfate 2.5 mg/3 mL 2.5 mg INHALATION Q4-6H PRN #90 ml 09/21/18 (0.083 %) solution for nebulization amitriptyline 75 mg tablet 225 mg PO BEDTIME #120 tab 09/30/18 hydrocodone 5 mg-acetaminophen 325 1 tab PO Q6H #112 tab 10/07/18 mg tablet minoxidil 5 % topical foam See Rx Instructions TOP DAILY #180 10/15/18 gram dexamethasone 4 mg tablet See Rx Instructions PO Q8H #12 tab 10/19/18 risperidone 0.5 mg tablet See Rx Instructions PO QHS #60 tab 10/19/18 zolpidem ER 12.5 mg 12.5 mg PO BEDTIME PRN #30 tab 10/19/18 tablet,extended release,multiphase cyclobenzaprine 10 mg tablet 10 mg PO TID #30 tab 10/22/18 levofloxacin [Levaquin] 750 mg PO DAILY 6 Days tab 10/23/18 methylphenidate 5 mg tablet 15 mg PO BID #180 tab 10/23/18 oxycodone-acetaminophen [Percocet] 1 tab PO Q4H PRN #10 tab 10/23/18 Allergies Allergy/AdvReac Type Severity Reaction Status Date / Time Penicillins [PENICILLINS] Allergy Unknown Verified 10/23/18 17:49 fluconazole [From DIFLUCAN] AdvReac Intermediate vomiting Verified 10/23/18 17:49 and abd pain codeine [CODEINE] AdvReac Mild NAUSEA Verified 10/23/18 17:49 Review of Systems Review of Systems ROS Unobtainable: All systems reviewed & are unremarkable except as noted in HPI and below Constitutional Reports system reviewed and no additional complaints, except as docu, Denies chills, Denies fatigue, Reports fever(s), Denies headache(s), Reports lethargy and Denies poor appetite Eyes Denies change in vision, Denies eye discharge, Denies irritation and Denies loss of vision ENT Ears, Nose, Mouth, and Throat: Denies headache(s), Denies neck pain, Denies post nasal drip, Denies sinus pain and Denies sore throat Cardiovascular Denies chest pain, Denies irregular heart rhythm, Denies lightheadedness, Denies palpitations, Denies dyspnea and Denies orthopnea Respiratory Reports cough, Reports excessive phlegm production, Denies pain with cough, Denies dyspnea and Denies wheezing Gastrointestinal Gastrointestinal: Denies abdominal pain, Denies change in bowel habits, Denies diarrhea, Denies nausea and Denies vomiting Genitourinary Denies dysuria Musculoskeletal Denies back pain and Denies neck pain Integumentary/Breasts Denies pruritus, Denies erythema, Denies rash and Denies wounds Neurologic Denies headache(s) and Denies loss of vision Endocrine Denies fatigue and Denies palpitations Allergic/Immunologic Denies wheezing Exam Initial Vital Signs Initial Vital Signs: Vital Signs Temperature 99.9 F H 10/23/18 17:44 Pulse Rate 114 H 10/23/18 17:44 Respiratory Rate 22 10/23/18 17:44 Blood Pressure 167/102 H 10/23/18 17:44 Pulse Oximetry 99 10/23/18 17:44 Const General: cooperative, comfortable and well developed Nutritional Appearance: well nourished Orientation: alert, awake, oriented x3 and not confused [facility] Head: normocephalic and atraumatic Ears: external ears normal and TM's normal bilaterally Nose: external nose normal Face and sinus: sinuses nontender and face symmetric Mouth: oral mucosae normal Teeth and gingiva: dentition normal Throat: tonsils normal and uvula midline Eyes General: appearance normal, both eyes and all related structures Eyelids: eyelids normal Conjunctivae: conjunctivae normal Sclera: sclerae normal Pupils: PERRL EOM: EOM intact bilaterally Neck Neck: supple, No lymphadenopathy and No tender Chest Chest: normal inspection of the chest Resp Effort & Inspection: normal respiratory effort, able to speak in complete sentences, no respiratory distress and no use of accessory muscles Auscultation: clear to auscultation bilaterally, no rales, rhonchi (Right middle lobe.) and wheezes (Right middle lobe.) Cardio Rate: regular rate Rhythm: regular rhythm Heart Sounds: S1 normal, S2 normal, no click, no gallops, no murmurs and no rubs Pulses: normal peripheral pulses GI Inspection: non-distended Palpation: soft, no hepatosplenomegaly, No guarding, No pulsatile mass and No tender Auscultation: normal bowel sounds Back/Spine/Pelvis Back: No CVA tenderness Skin General: no rashes or lesions noted Extrem Other: Upper extremities are atraumatic. Right legs atraumatic. She has edema around the left patella. She has ecchymoses of the left knee extending down to the left proximal tibia. She has decreased range of motion in the left knee due to pain and swelling. There is no perceivable laxity to the knee. The tibia and fibula are nontender, all there is associated contusion around the site. The lower leg, ankle and foot are atraumatic. Pulses and sensation the left foot are normal. Psych Appearance: well kempt Mental Status: mental status grossly normal Attitude: cooperative Thought Content: normal and suicidality Judgment: judgment good [facility] Medical History Migraines (Chronic) Fibromyalgia (Chronic ~05/2017) History of PCR DNA positive for HSV1 (Acute ~2014) Hypothyroidism (Chronic ~2008) Anxiety (Chronic) Asthma (Chronic) Depression (Chronic) Diverticular disease (Chronic ~2015) Irritable bowel syndrome (Chronic) Rheumatoid arthritis (Chronic) Surgical History Status post delivery (12/30/14) Status post laparoscopic supracervical hysterectomy (10/23/15) Status post laparoscopy (01/19/16) Status post surgery (07/07/12) Status post tubal ligation (12/30/14) Family History Grandmother Stroke Grandfather Heart disease Cancer Father Hypertension Social History household members: spouse and children Smoking Status: Current some day smoker Family History Grandmother Stroke Grandfather Heart disease Cancer Father Hypertension Social History household members: spouse and children Smoking Status: Current some day smoker Course Course Narrative: The patient was given DuoNeb treatment. The DuoNeb treatment did not significantly change the evaluation of the right middle lobe. She has auscultation changes suggestive of pneumonia. She was started on Levaquin. X-rays of the left knee show no bony trauma. She was placed in Timmy wrap, and given crutches by her nurse. She was instructed in crutch use. She was initially given Dilaudid IV for pain, the discharged on Tylenol Percocet. Orders Ordered: ED Orders 10/23/18 18:00 XR chest 1V Stat XR knee LT 3V Stat 10/23/18 18:10 C-Reactive Protein Quant Stat Complete Blood Count AUTO DIFF Stat Comprehensive Metabolic Panel Stat Erythrocyte Sedimentation Rate Stat Lactate (Lactic Acid) Stat Lipase Stat Partial Thromboplastin Time Stat Procalcitonin Stat Prothrombin Time INR Stat 10/23/18 18:52 Blood Culture Stat Discontinued Medications Albuterol/Ipratropium (Duoneb) 3 ml INH NOW ONE Stop: 10/23/18 19:09 Last Admin: 10/23/18 19:30 Dose: 3 ml Hydromorphone HCl (Dilaudid) 1 mg IV NOW ONE Stop: 10/23/18 19:09 Last Admin: 10/23/18 19:22 Dose: 1 mg Sodium Chloride (Normal Saline 0.9%) 1,000 mls @ 1,000 mls/hr IV BOLUS ONE Stop: 10/23/18 18:59 Last Infusion: 10/23/18 20:11 Dose: 0 mls/hr Admin: 10/23/18 18:18 Dose: 1,000 mls/hr Levofloxacin (Levaquin) 750 mg PO NOW ONE Stop: 10/23/18 19:59 Last Admin: 10/23/18 20:13 Dose: 750 mg Ondansetron HCl (Zofran) 4 mg IV NOW ONE Stop: 10/23/18 18:01 Last Admin: 10/23/18 18:18 Dose: 4 mg Vital Signs - 8 hr 10/23/18 17:44 10/23/18 19:11 10/23/18 19:30 Temperature 99.9 F H 98.5 F Pulse Rate 114 H 101 H 108 H Respiratory Rate 22 20 13 Blood Pressure 167/102 H Blood Pressure [Left Arm] 145/93 H Pulse Oximetry 99 94 95 10/23/18 20:45 Temperature Pulse Rate 89 Respiratory Rate 16 Blood Pressure 154/76 H Blood Pressure [Left Arm] Pulse Oximetry 99 MDM - Fall Lab Data Result diagrams: 10/23/18 18:10 10/23/18 18:10 Lab Results 10/23/18 10/23/18 10/23/18 Range/Units 18:10 18:10 18:10 WBC 12.4 H (4.5-11.0) X10^3/uL RBC 4.64 (4.0-5.2) X10^6/uL Hgb 12.9 (12.0-16.0) g/dL Hct 39.3 (36-46) % MCV 84.5 (80-100) fL MCH 27.8 (26-34) PG MCHC 32.8 (30-36) % RDW 14.7 (11.6-14.8) % Plt Count 328 (150-400) X10^3/uL Neut % (Auto) 90.0 H (50-75) % Lymph % (Auto) 5.4 L (25-40) % [place] % (Auto) 4.4 (3-14) % Eos % (Auto) 0.0 L (2-4) % Baso % (Auto) 0.2 (0-2) % Neut # (Auto) 69568 H (9112-4007) /uL Lymph # (Auto) 700 L (8713-5570) /uL [place] # (Auto) 600 (0-900) /uL Eos # (Auto) 0 (0-450) /uL Baso # (Auto) 0 (0-100) /uL ESR 20 (0-20) MM/HR PT 11.2 (10.1-12.7) SECONDS INR 1.0 (0.9-1.3) APTT 28 (26.4-36.2) SECONDS Sodium (137-145) mmol/L Potassium (3.4-5.1) mmol/L Chloride (98-107) mmol/L Carbon Dioxide (22-32) mmol/L BUN (7-17) mg/dL Creatinine (0.52-1.04) mg/dL Estimated GFR (>60) mL/min BUN/Creatinine Ratio (6-22) Glucose (70-100) mg/dL Lactate (0.7-2.1) mmol/L Calcium (8.4-10.2) mg/dL Total Bilirubin (0.2-1.3) mg/dL AST (14-36) IU/L ALT (9-52) IU/L Alkaline Phosphatase (38-126) U/L C-Reactive Protein (<1.0) mg/dL Total Protein (6.3-8.2) g/dL Albumin (3.5-5.0) g/dL Globulin (1.7-4.1) g/dL Albumin/Globulin Ratio (1.0-2.8) Lipase (23-300) U/L Procalcitonin < 0.05 (<0.5) ng/mL 10/23/18 10/23/18 Range/Units 18:10 18:10 WBC (4.5-11.0) X10^3/uL RBC (4.0-5.2) X10^6/uL Hgb (12.0-16.0) g/dL Hct (36-46) % MCV (80-100) fL MCH (26-34) PG MCHC (30-36) % RDW (11.6-14.8) % Plt Count (150-400) X10^3/uL Neut % (Auto) (50-75) % Lymph % (Auto) (25-40) % [place] % (Auto) (3-14) % Eos % (Auto) (2-4) % Baso % (Auto) (0-2) % Neut # (Auto) (0307-6929) /uL Lymph # (Auto) (6229-2071) /uL [place] # (Auto) (0-900) /uL Eos # (Auto) (0-450) /uL Baso # (Auto) (0-100) /uL ESR (0-20) MM/HR PT (10.1-12.7) SECONDS INR (0.9-1.3) APTT (26.4-36.2) SECONDS Sodium 140 (137-145) mmol/L Potassium 4.2 (3.4-5.1) mmol/L Chloride 103 (98-107) mmol/L Carbon Dioxide 27 (22-32) mmol/L BUN 14 (7-17) mg/dL Creatinine 0.60 (0.52-1.04) mg/dL Estimated GFR > 60.0 (>60) mL/min BUN/Creatinine Ratio 23.3 H (6-22) Glucose 135 H (70-100) mg/dL Lactate 1.7 (0.7-2.1) mmol/L Calcium 9.7 (8.4-10.2) mg/dL Total Bilirubin 0.3 (0.2-1.3) mg/dL AST 20 (14-36) IU/L ALT 11 (9-52) IU/L Alkaline Phosphatase 126 (38-126) U/L C-Reactive Protein 0.6 (<1.0) mg/dL Total Protein 7.7 (6.3-8.2) g/dL Albumin 4.5 (3.5-5.0) g/dL Globulin 3.2 (1.7-4.1) g/dL Albumin/Globulin Ratio 1.4 (1.0-2.8) Lipase 81 (23-300) U/L Procalcitonin (<0.5) ng/mL Imaging Data Chest x-ray: Radiologist's impression: [address] [address] XRay Report Signed Patient: Alina Pal LMR#: [id number] : 1980Acct:[id number] Age/Sex: 37 / FDate of Service: 10/23/18 Loc: ED Accession Number: [id number] Procedure: XR chest 1V Ordering Provider: Karely Ceballos D.O. PROCEDURE: XR CHEST 1V INDICATIONS: suspected sepsis TECHNIQUE: One view of the chest was acquired. COMPARISON: [facility], , XR CHEST 1V, 06/20/2018, 12:40. FINDINGS: Surgical changes and devices: Mild pulmonary vascular congestion is seen. No definite focal infiltrate. Lungs and pleura: Lungs are clear. No pleural effusions or pneumothorax. Mediastinum: Mediastinal contours appear normal. Heart size is enlarged. Bones and chest wall: No suspicious bony lesions. Overlying soft tissues appear unremarkable. IMPRESSION: Mild congestion. No focal infiltrate, pleural effusion or pneumothorax. Dictated by: Patrick Leroy M.D. on 10/23/2018 at 18:48 Approved by: Patrick Leroy M.D. on 10/23/2018 at 18:49 Left knee XR:: Radiologist's impression: 70 Lei Guerrero MD Find Patient Imaging Alina Pal 37 F 1980 ACTIVITY DATE EXAM STATUS AUTHOR 10/23/18 18:00 Signed Patrick Leroy 10/23/18 18:00 Signed Patrick Leroy [address] [address] XRay Report Signed Patient: Alina Pal LMR#: [id number] : 1980Acct:[id number] Age/Sex: 37 / FDate of Service: 10/23/18 Loc: ED Accession Number: [id number] Procedure: XR knee LT 3V Ordering Provider: Karely Ceballos D.O. PROCEDURE: XR KNEE LT 3V INDICATIONS: fall, joint swollen and hot. TECHNIQUE: 3 views of the knee were acquired. COMPARISON: None. FINDINGS: Bones: No fractures or dislocations. No suspicious bony lesions. Soft tissues: No joint effusion. No suspicious soft tissue calcifications. IMPRESSION: No gross acute left knee fracture or dislocation. No significant joint effusion. Dictated by: Patrick Leroy M.D. on 10/23/2018 at 18:51 Approved by: Patrick Leroy M.D. on 10/23/2018 at 18:53 Discharge Plan Departure Patient Disposition: Home Clinical Impression: RML pneumonia Qualifiers: Pneumonia type: due to unspecified organism Qualified Code(s): J18.1 - Lobar pneumonia, unspecified organism Contusion of knee, left Qualifiers: Encounter type: initial encounter Qualified Code(s): S80.02XA - Contusion of left knee, initial encounter Discharge Date/Time: 10/23/18 20:45 Interventions: ED Discharge Assessment Last Done: 10/23/18 20:45 Instructions: Contusion, DI for Pneumonia -- Adult Activity Restrictions/Additional Instructions: Regarding the left knee injury: Tylenol 2 tabs every 6 hours as needed for pain. Percocet 1 every 4-6 hours as needed for added pain control. Use the Timmy wrap and crutches as needed. Apply ice packs to the knee frequently for the next couple days. Follow-up with her doctor in about 10 days if not improved. Regarding pneumonia: Levaquin 1 tablet daily for the next 6 days. I highly recommend you stop using tobacco. Follow-up with your doctor in 2- 3 weeks to recheck your lungs. Return to the ER as needed. Prescriptions: New oxycodone-acetaminophen [Percocet] 5-325 mg tablet 1 tab PO Q4H PRN (Reason: pain) Qty: 10 RF: 0 levofloxacin [Levaquin] 750 mg tablet 750 mg PO DAILY 6 Days RF: 0 No Action ibuprofen 600 mg tablet 600 mg PO Q6HP PRN (Reason: pain) Qty: 20 RF: 0 Ventolin HFA 90 mcg/actuation HFA aerosol inhaler 2 puff INHALATION Q4HP PRN (Reason: shortness of breath or wheezing) Qty: 1 RF: 5 duloxetine 30 mg capsule,delayed release(DR/EC) 30 mg PO QDAY Qty: 90 RF: 1 albuterol sulfate 2.5 mg /3 mL (0.083 %) solution for nebulization 2.5 mg INHALATION Q4-6H PRN (Reason: bronchospasm) Qty: 90 RF: 0 amitriptyline 75 mg tablet 225 mg PO BEDTIME Qty: 120 RF: 0 hydrocodone-acetaminophen 5-325 mg tablet 1 tab PO Q6H Qty: 112 RF: 0 minoxidil 5 % foam See Rx Instructions TOP DAILY Qty: 180 RF: 0 risperidone [Risperdal] 0.5 mg tablet See Rx Instructions PO QHS Qty: 60 RF: 1 zolpidem 12.5 mg tablet,ext release multiphase 12.5 mg PO BEDTIME PRN (Reason: insomnia) Qty: 30 RF: 0 methylphenidate HCl 5 mg tablet 15 mg PO BID Qty: 180 RF: 0 inhalational spacing device [Timmy Aerosol [place] Enhancer] spacer .ROUTE .MEDSUPPLY Qty: 1 RF: 0 pregabalin 200 mg capsule 200 mg PO BID Qty: 60 RF: 1 levothyroxine 112 mcg tablet 112 mcg PO DAILY Qty: 90 RF: 1 budesonide 0.25 mg/2 mL suspension for nebulization 2 ml INHALATION BID Qty: 120 RF: 1 ipratropium-albuterol 0.5 mg-3 mg(2.5 mg base)/3 mL solution for nebulization 3 ml INHALATION Q4H PRN (Reason: shortness of breath or wheezing) Qty: 180 RF: 0 dexamethasone 4 mg tablet See Rx Instructions PO Q8H Qty: 12 RF: 0 erythromycin 5 mg/gram (0.5 %) ointment 1 applictn EYE-RIGHT Q4H Qty: 3.5 RF: 0 cyclobenzaprine 10 mg tablet 10 mg PO TID Qty: 30 RF: 0 Referrals: Rebeca Meyer DO [Primary Care Provider] -
[2018-10-23 19:03] LABS: Erythrocyte Sedimentation Rate 20 MM/HR (0-20)
[2018-10-23 19:05] LABS: Procalcitonin < 0.05 ng/mL (<0.5)
[2018-10-23 19:11] VITALS: BP 145/93; PULSE 101; RESP 20; TEMP 36.9; O2SAT 94
[2018-10-23] MEDS: HYDROMORPHONE 1 MG INJ IV (19:22)
[2018-10-23 19:30] VITALS: PULSE 108; RESP 13; O2SAT 95
[2018-10-23] MEDS: ALBUTEROL/IPRATROPIUM 3 ML AMPUL INH (19:30)
[2018-10-23] MEDS: levoFLOXacin 250 MG TABLET 750 MG PO (20:13)
--- NOTE | 2018-10-23 20:17 | ED_ITS ---
HPI - Fall General Chief Complaint: Fall Stated Complaint: fall couple days ago, multiple wounds Time Seen by Provider: 10/23/18 18:49 Source: patient Mode of arrival: ambulatory Limitations: no limitations History of Present Illness HPI Narrative: The patient tripped and fell onto pavement 2 days ago. She landed primarily on the left knee. She comes in now with significant swelling, ecchymosis and pain to the left knee. She is ambulatory but with significant pain. She has no numbness or weakness in the leg distal to the injury. She has no associated head, torso or upper extremity pain. The right leg is atraumatic. She complains of no neck or back pain. Additionally she has been ill. She has had productive cough with a subjective fever. She is a cigarette smoker. She was treated for pneumonia June 2018. She has no asthma or allergies. She does not have chronic lung issues. She has no chest pain or cardiac issues. She has no associated sinus pressure sore throat. She denies abdominal discomfort, nausea, vomiting or diarrhea. She has no urinary complaints. Related Data Previous Rx's Medication Instructions Recorded ibuprofen 600 mg tablet 600 mg PO Q6HP PRN #20 tab 09/16/17 inhalational spacing device #1 each 02/05/18 ipratropium-albuterol 0.5 mg-3 3 ml INHALATION Q4H PRN #180 ml 06/26/18 mg(2.5 mg base)/3 mL nebulization soln albuterol sulfate HFA 90 2 puff INHALATION Q4HP PRN #1 each 06/29/18 mcg/actuation aerosol inhaler pregabalin 200 mg capsule 200 mg PO BID #60 cap 07/09/18 duloxetine 30 mg capsule,delayed 30 mg PO QDAY #90 cap 07/17/18 release erythromycin 1 applictn EYE-RIGHT Q4H #3.5 gram 09/01/18 budesonide 0.25 mg/2 mL suspension 2 ml INHALATION BID #120 ml 09/17/18 for nebulization levothyroxine 112 mcg tablet 112 mcg PO DAILY #90 tab 09/17/18 albuterol sulfate 2.5 mg/3 mL 2.5 mg INHALATION Q4-6H PRN #90 ml 09/21/18 (0.083 %) solution for nebulization amitriptyline 75 mg tablet 225 mg PO BEDTIME #120 tab 09/30/18 hydrocodone 5 mg-acetaminophen 325 1 tab PO Q6H #112 tab 10/07/18 mg tablet minoxidil 5 % topical foam See Rx Instructions TOP DAILY #180 10/15/18 gram dexamethasone 4 mg tablet See Rx Instructions PO Q8H #12 tab 10/19/18 risperidone 0.5 mg tablet See Rx Instructions PO QHS #60 tab 10/19/18 zolpidem ER 12.5 mg 12.5 mg PO BEDTIME PRN #30 tab 10/19/18 tablet,extended release,multiphase cyclobenzaprine 10 mg tablet 10 mg PO TID #30 tab 10/22/18 levofloxacin [Levaquin] 750 mg PO DAILY 6 Days tab 10/23/18 methylphenidate 5 mg tablet 15 mg PO BID #180 tab 10/23/18 oxycodone-acetaminophen [Percocet] 1 tab PO Q4H PRN #10 tab 10/23/18 Allergies Allergy/AdvReac Type Severity Reaction Status Date / Time Penicillins [PENICILLINS] Allergy Unknown Verified 10/23/18 17:49 fluconazole [From DIFLUCAN] AdvReac Intermediate vomiting Verified 10/23/18 17:49 and abd pain codeine [CODEINE] AdvReac Mild NAUSEA Verified 10/23/18 17:49 Review of Systems Review of Systems ROS Unobtainable: All systems reviewed & are unremarkable except as noted in HPI and below Constitutional Reports system reviewed and no additional complaints, except as docu, Denies chills, Denies fatigue, Reports fever(s), Denies headache(s), Reports lethargy and Denies poor appetite Eyes Denies change in vision, Denies eye discharge, Denies irritation and Denies loss of vision ENT Ears, Nose, Mouth, and Throat: Denies headache(s), Denies neck pain, Denies post nasal drip, Denies sinus pain and Denies sore throat Cardiovascular Denies chest pain, Denies irregular heart rhythm, Denies lightheadedness, Denies palpitations, Denies dyspnea and Denies orthopnea Respiratory Reports cough, Reports excessive phlegm production, Denies pain with cough, Denies dyspnea and Denies wheezing Gastrointestinal Gastrointestinal: Denies abdominal pain, Denies change in bowel habits, Denies diarrhea, Denies nausea and Denies vomiting Genitourinary Denies dysuria Musculoskeletal Denies back pain and Denies neck pain Integumentary/Breasts Denies pruritus, Denies erythema, Denies rash and Denies wounds Neurologic Denies headache(s) and Denies loss of vision Endocrine Denies fatigue and Denies palpitations Allergic/Immunologic Denies wheezing Exam Initial Vital Signs Initial Vital Signs: Vital Signs Temperature 99.9 F H 10/23/18 17:44 Pulse Rate 114 H 10/23/18 17:44 Respiratory Rate 22 10/23/18 17:44 Blood Pressure 167/102 H 10/23/18 17:44 Pulse Oximetry 99 10/23/18 17:44 Const General: cooperative, comfortable and well developed Nutritional Appearance: well nourished Orientation: alert, awake, oriented x3 and not confused [facility] Head: normocephalic and atraumatic Ears: external ears normal and TM's normal bilaterally Nose: external nose normal Face and sinus: sinuses nontender and face symmetric Mouth: oral mucosae normal Teeth and gingiva: dentition normal Throat: tonsils normal and uvula midline Eyes General: appearance normal, both eyes and all related structures Eyelids: eyelids normal Conjunctivae: conjunctivae normal Sclera: sclerae normal Pupils: PERRL EOM: EOM intact bilaterally Neck Neck: supple, No lymphadenopathy and No tender Chest Chest: normal inspection of the chest Resp Effort & Inspection: normal respiratory effort, able to speak in complete sentences, no respiratory distress and no use of accessory muscles Auscultation: clear to auscultation bilaterally, no rales, rhonchi (Right middle lobe.) and wheezes (Right middle lobe.) Cardio Rate: regular rate Rhythm: regular rhythm Heart Sounds: S1 normal, S2 normal, no click, no gallops, no murmurs and no rubs Pulses: normal peripheral pulses GI Inspection: non-distended Palpation: soft, no hepatosplenomegaly, No guarding, No pulsatile mass and No tender Auscultation: normal bowel sounds Back/Spine/Pelvis Back: No CVA tenderness Skin General: no rashes or lesions noted Extrem Other: Upper extremities are atraumatic. Right legs atraumatic. She has edema around the left patella. She has ecchymoses of the left knee extending down to the left proximal tibia. She has decreased range of motion in the left knee due to pain and swelling. There is no perceivable laxity to the knee. The tibia and fibula are nontender, all there is associated contusion around the site. The lower leg, ankle and foot are atraumatic. Pulses and sensation the left foot are normal. Psych Appearance: well kempt Mental Status: mental status grossly normal Attitude: cooperative Thought Content: normal and suicidality Judgment: judgment good [facility] Medical History Migraines (Chronic) Fibromyalgia (Chronic ~05/2017) History of PCR DNA positive for HSV1 (Acute ~2014) Hypothyroidism (Chronic ~2008) Anxiety (Chronic) Asthma (Chronic) Depression (Chronic) Diverticular disease (Chronic ~2015) Irritable bowel syndrome (Chronic) Rheumatoid arthritis (Chronic) Surgical History Status post delivery (12/30/14) Status post laparoscopic supracervical hysterectomy (10/23/15) Status post laparoscopy (01/19/16) Status post surgery (07/07/12) Status post tubal ligation (12/30/14) Family History Grandmother Stroke Grandfather Heart disease Cancer Father Hypertension Social History household members: spouse and children Smoking Status: Current some day smoker Family History Grandmother Stroke Grandfather Heart disease Cancer Father Hypertension Social History household members: spouse and children Smoking Status: Current some day smoker Course Course Narrative: The patient was given DuoNeb treatment. The DuoNeb treatment did not significantly change the evaluation of the right middle lobe. She has auscultation changes suggestive of pneumonia. She was started on Levaquin. X- rays of the left knee show no bony trauma. She was placed in Timmy wrap, and g iven crutches by her nurse. She was instructed in crutch use. She was initially given Dilaudid IV for pain, the discharged on Tylenol Percocet. Orders Ordered: ED Orders 10/23/18 18:00 XR chest 1V Stat XR knee LT 3V Stat 10/23/18 18:10 C-Reactive Protein Quant Stat Complete Blood Count AUTO DIFF Stat Comprehensive Metabolic Panel Stat Erythrocyte Sedimentation Rate Stat Lactate (Lactic Acid) Stat Lipase Stat Partial Thromboplastin Time Stat Procalcitonin Stat Prothrombin Time INR Stat 10/23/18 18:52 Blood Culture Stat Discontinued Medications Albuterol/Ipratropium (Duoneb) 3 ml INH NOW ONE Stop: 10/23/18 19:09 Last Admin: 10/23/18 19:30 Dose: 3 ml Hydromorphone HCl (Dilaudid) 1 mg IV NOW ONE Stop: 10/23/18 19:09 Last Admin: 10/23/18 19:22 Dose: 1 mg Sodium Chloride (Normal Saline 0.9%) 1,000 mls @ 1,000 mls/hr IV BOLUS ONE Stop: 10/23/18 18:59 Last Infusion: 10/23/18 20:11 Dose: 0 mls/hr Admin: 10/23/18 18:18 Dose: 1,000 mls/hr Levofloxacin (Levaquin) 750 mg PO NOW ONE Stop: 10/23/18 19:59 Last Admin: 10/23/18 20:13 Dose: 750 mg Ondansetron HCl (Zofran) 4 mg IV NOW ONE Stop: 10/23/18 18:01 Last Admin: 10/23/18 18:18 Dose: 4 mg Vital Signs - 8 hr 10/23/18 17:44 10/23/18 19:11 10/23/18 19:30 Temperature 99.9 F H 98.5 F Pulse Rate 114 H 101 H 108 H Respiratory Rate 22 20 13 Blood Pressure 167/102 H Blood Pressure [Left Arm] 145/93 H Pulse Oximetry 99 94 95 10/23/18 20:45 Temperature Pulse Rate 89 Respiratory Rate 16 Blood Pressure 154/76 H Blood Pressure [Left Arm] Pulse Oximetry 99 MDM - Fall Lab Data Result diagrams: 10/23/18 18:10 10/23/18 18:10 Lab Results 10/23/18 10/23/18 10/23/18 Range/Units 18:10 18:10 18:10 WBC 12.4 H (4.5-11.0) X10^3/uL RBC 4.64 (4.0-5.2) X10^6/uL Hgb 12.9 (12.0-16.0) g/dL Hct 39.3 (36-46) % MCV 84.5 (80-100) fL MCH 27.8 (26-34) PG MCHC 32.8 (30-36) % RDW 14.7 (11.6-14.8) % Plt Count 328 (150-400) X10^3/uL Neut % (Auto) 90.0 H (50-75) % Lymph % (Auto) 5.4 L (25-40) % [place] % (Auto) 4.4 (3-14) % Eos % (Auto) 0.0 L (2-4) % Baso % (Auto) 0.2 (0-2) % Neut # (Auto) 71687 H (7561-1376) /uL Lymph # (Auto) 700 L (3777-2220) /uL [place] # (Auto) 600 (0-900) /uL Eos # (Auto) 0 (0-450) /uL Baso # (Auto) 0 (0-100) /uL ESR 20 (0-20) MM/HR PT 11.2 (10.1-12.7) SECONDS INR 1.0 (0.9-1.3) APTT 28 (26.4-36.2) SECONDS Sodium (137-145) mmol/L Potassium (3.4-5.1) mmol/L Chloride (98-107) mmol/L Carbon Dioxide (22-32) mmol/L BUN (7-17) mg/dL Creatinine (0.52-1.04) mg/dL Estimated GFR (>60) mL/min BUN/Creatinine Ratio (6-22) Glucose (70-100) mg/dL Lactate (0.7-2.1) mmol/L Calcium (8.4-10.2) mg/dL Total Bilirubin (0.2-1.3) mg/dL AST (14-36) IU/L ALT (9-52) IU/L Alkaline Phosphatase (38-126) U/L C-Reactive Protein (<1.0) mg/dL Total Protein (6.3-8.2) g/dL Albumin (3.5-5.0) g/dL Globulin (1.7-4.1) g/dL Albumin/Globulin Ratio (1.0-2.8) Lipase (23-300) U/L Procalcitonin < 0.05 (<0.5) ng/mL 10/23/18 10/23/18 Range/Units 18:10 18:10 WBC (4.5-11.0) X10^3/uL RBC (4.0-5.2) X10^6/uL Hgb (12.0-16.0) g/dL Hct (36-46) % MCV (80-100) fL MCH (26-34) PG MCHC (30-36) % RDW (11.6-14.8) % Plt Count (150-400) X10^3/uL Neut % (Auto) (50-75) % Lymph % (Auto) (25-40) % [place] % (Auto) (3-14) % Eos % (Auto) (2-4) % Baso % (Auto) (0-2) % Neut # (Auto) (3866-3382) /uL Lymph # (Auto) (3749-7768) /uL [place] # (Auto) (0-900) /uL Eos # (Auto) (0-450) /uL Baso # (Auto) (0-100) /uL ESR (0-20) MM/HR PT (10.1-12.7) SECONDS INR (0.9-1.3) APTT (26.4-36.2) SECONDS Sodium 140 (137-145) mmol/L Potassium 4.2 (3.4-5.1) mmol/L Chloride 103 (98-107) mmol/L Carbon Dioxide 27 (22-32) mmol/L BUN 14 (7-17) mg/dL Creatinine 0.60 (0.52-1.04) mg/dL Estimated GFR > 60.0 (>60) mL/min BUN/Creatinine Ratio 23.3 H (6-22) Glucose 135 H (70-100) mg/dL Lactate 1.7 (0.7-2.1) mmol/L Calcium 9.7 (8.4-10.2) mg/dL Total Bilirubin 0.3 (0.2-1.3) mg/dL AST 20 (14-36) IU/L ALT 11 (9-52) IU/L Alkaline Phosphatase 126 (38-126) U/L C-Reactive Protein 0.6 (<1.0) mg/dL Total Protein 7.7 (6.3-8.2) g/dL Albumin 4.5 (3.5-5.0) g/dL Globulin 3.2 (1.7-4.1) g/dL Albumin/Globulin Ratio 1.4 (1.0-2.8) Lipase 81 (23-300) U/L Procalcitonin (<0.5) ng/mL Imaging Data Chest x-ray: Radiologist's impression: [address] [address] XRay Report Signed Patient: Alina Pal LMR#: [id number] : 1980Acct:[id number] Age/Sex: 37 / FDate of Service: 10/23/18 Loc: ED Accession Number: [id number] Procedure: XR chest 1V Ordering Provider: Karely Ceballos D.O. PROCEDURE: XR CHEST 1V INDICATIONS: suspected sepsis TECHNIQUE: One view of the chest was acquired. COMPARISON: [facility], , XR CHEST 1V, 06/20/2018, 12:40. FINDINGS: Surgical changes and devices: Mild pulmonary vascular congestion is seen. No definite focal infiltrate. Lungs and pleura: Lungs are clear. No pleural effusions or pneumothorax. Mediastinum: Mediastinal contours appear normal. Heart size is enlarged. Bones and chest wall: No suspicious bony lesions. Overlying soft tissues appear unremarkable. IMPRESSION: Mild congestion. No focal infiltrate, pleural effusion or pneumothorax. Dictated by: Patrick Leroy M.D. on 10/23/2018 at 18:48 Approved by: Patrick Leroy M.D. on 10/23/2018 at 18:49 Left knee XR:: Radiologist's impression: 70 Lie Guerrero MD Find Patient Imaging Alina Pal 37 F 1980 ACTIVITY DATE EXAM STATUS AUTHOR 10/23/18 18:00 Signed Patrick Leroy 10/23/18 18:00 Signed Patrick Leroy [address] [address] XRay Report Signed Patient: Alina Pal LMR#: [id number] : 1980Acct:[id number] Age/Sex: 37 / FDate of Service: 10/23/18 Loc: ED Accession Number: [id number] Procedure: XR knee LT 3V Ordering Provider: Karely Ceballos D.O. PROCEDURE: XR KNEE LT 3V INDICATIONS: fall, joint swollen and hot. TECHNIQUE: 3 views of the knee were acquired. COMPARISON: None. FINDINGS: Bones: No fractures or dislocations. No suspicious bony lesions. Soft tissues: No joint effusion. No suspicious soft tissue calcifications. IMPRESSION: No gross acute left knee fracture or dislocation. No significant joint effusion. Dictated by: Patrick Leroy M.D. on 10/23/2018 at 18:51 Approved by: Patrick Leroy M.D. on 10/23/2018 at 18:53 Discharge Plan Departure Patient Disposition: Home Clinical Impression: RML pneumonia Qualifiers: Pneumonia type: due to unspecified organism Qualified Code(s): J18.1 - Lobar pneumonia, unspecified organism Contusion of knee, left Qualifiers: Encounter type: initial encounter Qualified Code(s): S80.02XA - Contusion of left knee, initial encounter Discharge Date/Time: 10/23/18 20:45 Interventions: ED Discharge Assessment Last Done: 10/23/18 20:45 Instructions: Contusion, DI for Pneumonia -- Adult Activity Restrictions/Additional Instructions: Regarding the left knee injury: Tylenol 2 tabs every 6 hours as needed for pain. Percocet 1 every 4-6 hours as needed for added pain control. Use the Timmy wrap and crutches as needed. Apply ice packs to the knee frequently for the next couple days. Follow-up with her doctor in about 10 days if not improved. Regarding pneumonia: Levaquin 1 tablet daily for the next 6 days. I highly recommend you stop using tobacco. Follow-up with your doctor in 2- 3 weeks to recheck your lungs. Return to the ER as needed. Prescriptions: New oxycodone-acetaminophen [Percocet] 5-325 mg tablet 1 tab PO Q4H PRN (Reason: pain) Qty: 10 RF: 0 levofloxacin [Levaquin] 750 mg tablet 750 mg PO DAILY 6 Days RF: 0 No Action ibuprofen 600 mg tablet 600 mg PO Q6HP PRN (Reason: pain) Qty: 20 RF: 0 Ventolin HFA 90 mcg/actuation HFA aerosol inhaler 2 puff INHALATION Q4HP PRN (Reason: shortness of breath or wheezing) Qty: 1 RF: 5 duloxetine 30 mg capsule,delayed release(DR/EC) 30 mg PO QDAY Qty: 90 RF: 1 albuterol sulfate 2.5 mg /3 mL (0.083 %) solution for nebulization 2.5 mg INHALATION Q4-6H PRN (Reason: bronchospasm) Qty: 90 RF: 0 amitriptyline 75 mg tablet 225 mg PO BEDTIME Qty: 120 RF: 0 hydrocodone-acetaminophen 5-325 mg tablet 1 tab PO Q6H Qty: 112 RF: 0 minoxidil 5 % foam See Rx Instructions TOP DAILY Qty: 180 RF: 0 risperidone [Risperdal] 0.5 mg tablet See Rx Instructions PO QHS Qty: 60 RF: 1 zolpidem 12.5 mg tablet,ext release multiphase 12.5 mg PO BEDTIME PRN (Reason: insomnia) Qty: 30 RF: 0 methylphenidate HCl 5 mg tablet 15 mg PO BID Qty: 180 RF: 0 inhalational spacing device [Timmy Aerosol Mckinley Enhancer] spacer .ROUTE .MEDSUPPLY Qty: 1 RF: 0 pregabalin 200 mg capsule 200 mg PO BID Qty: 60 RF: 1 levothyroxine 112 mcg tablet 112 mcg PO DAILY Qty: 90 RF: 1 budesonide 0.25 mg/2 mL suspension for nebulization 2 ml INHALATION BID Qty: 120 RF: 1 ipratropium-albuterol 0.5 mg-3 mg(2.5 mg base)/3 mL solution for nebulization 3 ml INHALATION Q4H PRN (Reason: shortness of breath or wheezing) Qty: 180 RF: 0 dexamethasone 4 mg tablet See Rx Instructions PO Q8H Qty: 12 RF: 0 erythromycin 5 mg/gram (0.5 %) ointment 1 applictn EYE-RIGHT Q4H Qty: 3.5 RF: 0 cyclobenzaprine 10 mg tablet 10 mg PO TID Qty: 30 RF: 0 Referrals: Rebeca Meyer DO [Primary Care Provider] -
[2018-10-23 20:45] VITALS: BP 154/76; PULSE 89; RESP 16; O2SAT 99
--- NOTE | 2018-10-23 21:21 | PC.NURSE ---
Patient reports she was admitted in May for pneumonia. Has a cough today that she thinks is just the residual left over from the pneumonia. Temp of 99.9F and vomiting the last two days.
== END 2018-10-23 20:45 | disposition home or self-care (01) ==
PROVIDERS: Emergency Medicine; Emergency Provider Emergency Medicine; Family Provider Family Medicine; PCP Family Medicine
DX: J18.1 Lobar pneumonia, unspecified organism (principal); S80.02XA Contusion of left knee, initial encounter; W01.0XXA Fall on same level from slipping, tripping and stumbling without subsequent striking against object, initial encounter; Y99.0 Civilian activity done for income or pay
CPT/HCPCS: 36415; 36591; 71045; 73562; 80053; 83605; 83690; 84145; 85025; 85610; 85651; 85730; 86140; 87040; 94640; 96361; 96374; 96375; 99283; 99284; J1170; J2405

== ENCOUNTER 2018-10-27 17:18 | Emergency (ER) | payer OTHER, MEDICAID, SELFPAY ==
[2018-09-22 12:32] VITALS: BMI 46.3
[2018-10-27 17:20] VITALS: BP 145/96; PULSE 82; RESP 14; TEMP 37; O2SAT 98
[2018-10-27] MEDS: KETOROLAC 60 MG/2 ML VIAL IM (18:31)
--- NOTE | 2018-10-27 19:07 | DI.RAD.S_ITS ---
PROCEDURE: XR TIBIA FIBULA RT 2V INDICATIONS: pain status post fall TECHNIQUE: 2 views of the tibia and fibula were acquired. COMPARISON: None. FINDINGS: Bones: No fractures or dislocations. No suspicious bony lesions. Soft tissues: No suspicious soft tissue calcifications or masses. IMPRESSION: No acute fracture. No osseous lesion. If clinical suspicion and/or symptoms persist, further assessment with repeat plainfilms, or advanced imaging (e.g., CT, MRI, or bone scan) may be helpful for further assessment. Dictated by: Humza Brothers M.D. on 10/27/2018 at 19:36 Approved by: Humza Brothers M.D. on 10/27/2018 at 19:36
[2018-10-27 20:20] VITALS: BP 130/80; PULSE 88; RESP 18; O2SAT 98
--- NOTE | 2018-10-27 21:08 | ED.RECABL ---
HPI - Recheck/Abnormal Lab/Rx <Precious LawsonSHELIAP-BC - Last Filed: 10/27/18 21:18> General Chief Complaint: Recheck/Abnormal Lab/Rx Stated Complaint: LT LEG PAIN Time Seen by Provider: 10/27/18 18:05 Source: patient Mode of arrival: ambulatory Limitations: no limitations History of Present Illness HPI narrative: The patient is a 37-year-old female with history of asthma who presents with a chief complaint of left knee pain. On approximately 10/21, where she landed on her left knee. She was evaluated at this facility on 10/23, diagnosed with pneumonia as well as a left knee contusion. She had negative x-ray at that point time. She states she has been using her pain medicine, rest ice compression elevation as well as icing. She states that her knee is not improved. She presents requesting an MRI of her knee or CT scan prior to [employer] [facility] [employer] provider follow-up, which is scheduled on . She stated that given that her pain is not improving, she wanted further imaging. She has been ambulating since the injury. She states she is able to weight bear. She complains of significant bruising, and states that has been traveling down her leg. Patient is adamant that she is here for her leg and not to be evaluated for her pneumonia. Related Data Home Medications Medication Instructions Recorded Confirmed duloxetine 30 mg PO DAILY 10/27/18 10/27/18 duloxetine 60 mg PO DAILY 10/27/18 10/27/18 levofloxacin 750 mg PO DAILYX6 10/27/18 10/27/18 risperidone 0.5 - 1 mg PO BEDTIME 10/27/18 10/27/18 Previous Rx's Medication Instructions Recorded ibuprofen 600 mg tablet 600 mg PO Q6HP PRN #20 tab 09/16/17 inhalational spacing device #1 each 02/05/18 ipratropium-albuterol 0.5 mg-3 3 ml INHALATION Q4H PRN #180 ml 06/26/18 mg(2.5 mg base)/3 mL nebulization soln albuterol sulfate HFA 90 2 puff INHALATION Q4HP PRN #1 each 06/29/18 mcg/actuation aerosol inhaler pregabalin 200 mg capsule 200 mg PO BID #60 cap 07/09/18 erythromycin 1 applictn EYE-RIGHT Q4H #3.5 gram 09/01/18 budesonide 0.25 mg/2 mL suspension 2 ml INHALATION BID #120 ml 09/17/18 for nebulization levothyroxine 112 mcg tablet 112 mcg PO DAILY #90 tab 09/17/18 albuterol sulfate 2.5 mg/3 mL 2.5 mg INHALATION Q4-6H PRN #90 ml 09/21/18 (0.083 %) solution for nebulization amitriptyline 75 mg tablet 225 mg PO BEDTIME #120 tab 09/30/18 hydrocodone 5 mg-acetaminophen 325 1 tab PO Q6H #112 tab 10/07/18 mg tablet minoxidil 5 % topical foam See Rx Instructions TOP DAILY #180 10/15/18 gram dexamethasone 4 mg tablet See Rx Instructions PO Q8H #12 tab 10/19/18 zolpidem ER 12.5 mg 12.5 mg PO BEDTIME PRN #30 tab 10/19/18 tablet,extended release,multiphase cyclobenzaprine 10 mg tablet 10 mg PO TID #30 tab 10/22/18 methylphenidate 5 mg tablet 15 mg PO BID #180 tab 10/23/18 oxycodone-acetaminophen [Percocet] 1 tab PO Q4H PRN #10 tab 10/23/18 Allergies Allergy/AdvReac Type Severity Reaction Status Date / Time Penicillins [PENICILLINS] Allergy Unknown Verified 10/27/18 17:25 fluconazole [From DIFLUCAN] AdvReac Intermediate vomiting Verified 10/27/18 17:25 and abd pain codeine [CODEINE] AdvReac Mild NAUSEA Verified 10/27/18 17:25 Review of Systems <JANNETTE Weiner- - Last Filed: 10/27/18 21:18> Review of Systems GENERAL: Denies chills, fatigue, malaise, fever, sweats. HEENT: Denies sinus pain, ear pain, sore throat, difficulty swallowing, dizziness. RESPIRATORY: Denies dyspnea, cough, wheezing, hemoptysis, sputum. CARDIOVASCULAR: Denies chest pain, palpitations, orthopnea, edema, GASTROINTESTINAL: Denies nausea, vomiting, abdominal pain, diarrhea, constipation, melena. : Denies dysuria, frequency, incontinence, hematuria, urinary retention. MUSCULOSKELETAL: See HPI SKIN: See HPI NEUROLOGIC: Denies weakness, headache, numbness, change in speech, confusion, seizures, incoordination. PSYCHIATRIC: No concerning psychosocial issues. 12 point review of systems is negative except for those stated above PFSH <OMAR Weiner - Last Filed: 10/27/18 21:18> Medical History Migraines (Chronic) Fibromyalgia (Chronic ~05/2017) History of PCR DNA positive for HSV1 (Acute ~2014) Hypothyroidism (Chronic ~2008) Anxiety (Chronic) Asthma (Chronic) Depression (Chronic) Diverticular disease (Chronic ~2015) Irritable bowel syndrome (Chronic) Rheumatoid arthritis (Chronic) Surgical History Status post delivery (12/30/14) Status post laparoscopic supracervical hysterectomy (10/23/15) Status post laparoscopy (01/19/16) Status post surgery (07/07/12) Status post tubal ligation (12/30/14) Family History Grandmother Stroke Grandfather Heart disease Cancer Father Hypertension Social History household members: spouse and children Smoking Status: Current some day smoker Family History Grandmother Stroke Grandfather Heart disease Cancer Father Hypertension Social History household members: spouse and children Smoking Status: Current some day smoker Exam <OMAR Weiner - Last Filed: 10/27/18 21:18> Narrative Exam Narrative: GENERAL: Obese female no acute distress HEAD: Atraumatic. Normocephalic. No temporal or scalp tenderness. EYES: Pupils equal round and reactive. Extraocular motions intact. No scleral icterus. No injection or drainage. ENT: Nose without bleeding, purulent drainage or septal hematoma. Throat without erythema, tonsillar hypertrophy or exudate. Uvula midline. Airway patent. NECK: Trachea midline. No JVD or lymphadenopathy. Supple, nontender, no meningeal signs. CARDIOVASCULAR: Regular rate and rhythm RESPIRATORY: No cough. No increased respiratory effort. No accessory muscle use EXTREMITIES: Ecchymosis noted to left knee, positive pedal pulses left foot. Slight erythema noted front of tibia. Patient is able to bend knee to 90?. Declines any laxity exam. Able to ambulate steadily. Pain to palpation of lower tibia, no pain to palpation tibial plateau. BACK: Nontender without deformity or crepitance. No flank tenderness. NEURO: AOx3. SKIN: See above extremity exam Initial Vital Signs Initial Vital Signs: Vital Signs Temperature 98.6 F 10/27/18 17:20 Pulse Rate 82 10/27/18 17:20 Respiratory Rate 14 10/27/18 17:20 Blood Pressure 145/96 H 10/27/18 17:20 Pulse Oximetry 98 10/27/18 17:20 <Nguyễn Valladares DO - Last Filed: 10/27/18 23:55> Initial Vital Signs Initial Vital Signs: Vital Signs Temperature 98.6 F 10/27/18 17:20 Pulse Rate 82 10/27/18 17:20 Respiratory Rate 14 10/27/18 17:20 Blood Pressure 145/96 H 10/27/18 17:20 Pulse Oximetry 98 10/27/18 17:20 Course <OMAR Weiner - Last Filed: 10/27/18 21:18> Orders Ordered: ED Orders 10/27/18 19:07 XR tibia fibula LT 2V Stat Discontinued Medications Ketorolac Tromethamine (Toradol) 60 mg IM NOW ONE Stop: 10/27/18 18:21 Last Admin: 10/27/18 18:31 Dose: 60 mg Vital Signs - 8 hr 10/27/18 17:20 10/27/18 20:20 Temperature 98.6 F Pulse Rate 82 88 Respiratory Rate 14 18 Blood Pressure 145/96 H 130/80 Pulse Oximetry 98 98 <DO Marc Mosqueda Last Filed: 10/27/18 23:55> Orders Ordered: ED Orders 10/27/18 19:07 XR tibia fibula LT 2V Stat Discontinued Medications Ketorolac Tromethamine (Toradol) 60 mg IM NOW ONE Stop: 10/27/18 18:21 Last Admin: 10/27/18 18:31 Dose: 60 mg Vital Signs - 8 hr 10/27/18 17:20 10/27/18 20:20 Temperature 98.6 F Pulse Rate 82 88 Respiratory Rate 14 18 Blood Pressure 145/96 H 130/80 Pulse Oximetry 98 98 [facility] - Recheck/Abnormal Lab/Rx <OMAR Weiner - Last Filed: 10/27/18 21:18> Imaging Data Tibia x-ray: Radiologist's impression: [address] [address] XRay Report Signed Patient: Alina Pal LMR#: [id number] : 1980Acct:[id number] Age/Sex: 37 / FDate of Service: 10/27/18 Loc: ED Accession Number: [id number] Procedure: XR tibia fibula LT 2V Ordering Provider: Precious Lawson PROCEDURE: XR TIBIA FIBULA RT 2V INDICATIONS: pain status post fall TECHNIQUE: 2 views of the tibia and fibula were acquired. COMPARISON: None. FINDINGS: Bones: No fractures or dislocations. No suspicious bony lesions. Soft tissues: No suspicious soft tissue calcifications or masses. IMPRESSION: No acute fracture. No osseous lesion. If clinical suspicion and/or symptoms persist, further assessment with repeat plainfilms, or advanced imaging (e.g., CT, MRI, or bone scan) may be helpful for further assessment. Dictated by: Humza Brothers M.D. on 10/27/2018 at 19:36 Approved by: Humza Brothers M.D. on 10/27/2018 at 19:36 [facility] Narrative Medical decision making narrative: The patient is a 37-year-old female who presents with a chief complaint of continued knee pain. She had a negative x-ray on the of this month. She does have some pain to palpation of her tibia, so I did get imaging of that, which came back negative. She has been ambulating. She is able to bear weight. Several nurses evaluated her on her initial visit here today and stated that her ecchymosis and swelling is actually much improved, with a significant reduction of erythema. Thus with that she is on Levaquin, we elected to defer treating for cellulitis at this time especially given that her erythema is improving. She also denies any fevers or vomiting or systemic symptoms. The patient was under the understanding that I would be able to obtain an MRI of her knee at this point time. However I discussed that that is not the case and he would have to follow up with her [facility] provider as scheduled on . Given that she can ambulate and it has only been since the of this month that she had x-rays, I do not want to obtain repeat x-rays for an occult fracture at this point time. I discussed at length continued [id number] pain medications, using Tylenol instead of Motrin for steroid use as well as rest ice compression elevation. Discussed keeping her [facility] provider follow-up on . No questions or concerns upon discharge. Discharge Plan Departure Patient Disposition: Home Clinical Impression: Acute leg pain Qualifiers: Laterality: left Qualified Code(s): M79.605 - Pain in left leg Contusion of knee, left Qualifiers: Encounter type: initial encounter Qualified Code(s): S80.02XA - Contusion of left knee, initial encounter Discharge Date/Time: 10/27/18 20:20 Interventions: ED Discharge Assessment Last Done: 10/27/18 20:20 Instructions: DI for Contusion, DI for Knee Pain Activity Restrictions/Additional Instructions: Please follow up with her [facility] provider as scheduled on . I am sorry that I am unable to order an MRI on your knee from the emergency department. This will have to be done on an outpatient basis. Please come back to the emergency department for any acute concerns such as chest pain, shortness of breath inability keep down fluids Please continue rest ice compression elevation as well as [id number] pain medications as needed and able. Prescriptions: No Action ibuprofen 600 mg tablet 600 mg PO Q6HP PRN (Reason: pain) Qty: 20 RF: 0 Ventolin HFA 90 mcg/actuation HFA aerosol inhaler 2 puff INHALATION Q4HP PRN (Reason: shortness of breath or wheezing) Qty: 1 RF: 5 albuterol sulfate 2.5 mg /3 mL (0.083 %) solution for nebulization 2.5 mg INHALATION Q4-6H PRN (Reason: bronchospasm) Qty: 90 RF: 0 amitriptyline 75 mg tablet 225 mg PO BEDTIME Qty: 120 RF: 0 hydrocodone-acetaminophen 5-325 mg tablet 1 tab PO Q6H Qty: 112 RF: 0 minoxidil 5 % foam See Rx Instructions TOP DAILY Qty: 180 RF: 0 zolpidem 12.5 mg tablet,ext release multiphase 12.5 mg PO BEDTIME PRN (Reason: insomnia) Qty: 30 RF: 0 methylphenidate HCl 5 mg tablet 15 mg PO BID Qty: 180 RF: 0 inhalational spacing device [[employer] Cal[employer] Enhancer] spacer .ROUTE .MEDSUPPLY Qty: 1 RF: 0 pregabalin 200 mg capsule 200 mg PO BID Qty: 60 RF: 1 levothyroxine 112 mcg tablet 112 mcg PO DAILY Qty: 90 RF: 1 budesonide 0.25 mg/2 mL suspension for nebulization 2 ml INHALATION BID Qty: 120 RF: 1 ipratropium-albuterol 0.5 mg-3 mg(2.5 mg base)/3 mL solution for nebulization 3 ml INHALATION Q4H PRN (Reason: shortness of breath or wheezing) Qty: 180 RF: 0 dexamethasone 4 mg tablet See Rx Instructions PO Q8H Qty: 12 RF: 0 erythromycin 5 mg/gram (0.5 %) ointment 1 applictn EYE-RIGHT Q4H Qty: 3.5 RF: 0 oxycodone-acetaminophen [Percocet] 5-325 mg tablet 1 tab PO Q4H PRN (Reason: pain) Qty: 10 RF: 0 levofloxacin 750 mg tablet 750 mg PO DAILYX6 RF: 0 risperidone 0.5 mg tablet 0.5 - 1 mg PO BEDTIME RF: 0 duloxetine 60 mg capsule,delayed release(DR/EC) 60 mg PO DAILY RF: 0 duloxetine 30 mg capsule,delayed release(DR/EC) 30 mg PO DAILY RF: 0 cyclobenzaprine 10 mg tablet 10 mg PO TID Qty: 30 RF: 0 Referrals: Rebeca Meyer DO [Primary Care Provider] - <Nguyễn Valladares DO - Last Filed: 10/27/18 23:55> Cosign ED Attending Roberto Attestation: I was immediately available in the department for consultation. Documentation has been reviewed. I agree with assessment and plan.
--- NOTE | 2018-10-27 21:18 | ED_ITS ---
HPI - Recheck/Abnormal Lab/Rx <Precious LawsonSHELIAP-BC - Last Filed: 10/27/18 21:18> General Chief Complaint: Recheck/Abnormal Lab/Rx Stated Complaint: LT LEG PAIN Time Seen by Provider: 10/27/18 18:05 Source: patient Mode of arrival: ambulatory Limitations: no limitations History of Present Illness HPI narrative: The patient is a 37-year-old female with history of asthma who presents with a chief complaint of left knee pain. On approximately 10/21, where she landed on her left knee. She was evaluated at this facility on 10/23, diagnosed with pneumonia as well as a left knee contusion. She had negative x- ray at that point time. She states she has been using her pain medicine, rest ice compression elevation as well as icing. She states that her knee is not improved. She presents requesting an MRI of her knee or CT scan prior to [employer] [facility] [employer] provider follow-up, which is scheduled on . She stated that given that her pain is not improving, she wanted further imaging. She has been ambulating since the injury. She states she is able to weight bear. She complains of significant bruising, and states that has been traveling down her leg. Patient is adamant that she is here for her leg and not to be evaluated for her pneumonia. Related Data Home Medications Medication Instructions Recorded Confirmed duloxetine 30 mg PO DAILY 10/27/18 10/27/18 duloxetine 60 mg PO DAILY 10/27/18 10/27/18 levofloxacin 750 mg PO DAILYX6 10/27/18 10/27/18 risperidone 0.5 - 1 mg PO BEDTIME 10/27/18 10/27/18 Previous Rx's Medication Instructions Recorded ibuprofen 600 mg tablet 600 mg PO Q6HP PRN #20 tab 09/16/17 inhalational spacing device #1 each 02/05/18 ipratropium-albuterol 0.5 mg-3 3 ml INHALATION Q4H PRN #180 ml 06/26/18 mg(2.5 mg base)/3 mL nebulization soln albuterol sulfate HFA 90 2 puff INHALATION Q4HP PRN #1 each 06/29/18 mcg/actuation aerosol inhaler pregabalin 200 mg capsule 200 mg PO BID #60 cap 07/09/18 erythromycin 1 applictn EYE-RIGHT Q4H #3.5 gram 09/01/18 budesonide 0.25 mg/2 mL suspension 2 ml INHALATION BID #120 ml 09/17/18 for nebulization levothyroxine 112 mcg tablet 112 mcg PO DAILY #90 tab 09/17/18 albuterol sulfate 2.5 mg/3 mL 2.5 mg INHALATION Q4-6H PRN #90 ml 09/21/18 (0.083 %) solution for nebulization amitriptyline 75 mg tablet 225 mg PO BEDTIME #120 tab 09/30/18 hydrocodone 5 mg-acetaminophen 325 1 tab PO Q6H #112 tab 10/07/18 mg tablet minoxidil 5 % topical foam See Rx Instructions TOP DAILY #180 10/15/18 gram dexamethasone 4 mg tablet See Rx Instructions PO Q8H #12 tab 10/19/18 zolpidem ER 12.5 mg 12.5 mg PO BEDTIME PRN #30 tab 10/19/18 tablet,extended release,multiphase cyclobenzaprine 10 mg tablet 10 mg PO TID #30 tab 10/22/18 methylphenidate 5 mg tablet 15 mg PO BID #180 tab 10/23/18 oxycodone-acetaminophen [Percocet] 1 tab PO Q4H PRN #10 tab 10/23/18 Allergies Allergy/AdvReac Type Severity Reaction Status Date / Time Penicillins [PENICILLINS] Allergy Unknown Verified 10/27/18 17:25 fluconazole [From DIFLUCAN] AdvReac Intermediate vomiting Verified 10/27/18 17:25 and abd pain codeine [CODEINE] AdvReac Mild NAUSEA Verified 10/27/18 17:25 Review of Systems <JANNETTE Weiner- - Last Filed: 10/27/18 21:18> Review of Systems GENERAL: Denies chills, fatigue, malaise, fever, sweats. HEENT: Denies sinus pain, ear pain, sore throat, difficulty swallowing, dizziness. RESPIRATORY: Denies dyspnea, cough, wheezing, hemoptysis, sputum. CARDIOVASCULAR: Denies chest pain, palpitations, orthopnea, edema, GASTROINTESTINAL: Denies nausea, vomiting, abdominal pain, diarrhea, constipation, melena. : Denies dysuria, frequency, incontinence, hematuria, urinary retention. MUSCULOSKELETAL: See HPI SKIN: See HPI NEUROLOGIC: Denies weakness, headache, numbness, change in speech, confusion, seizures, incoordination. PSYCHIATRIC: No concerning psychosocial issues. 12 point review of systems is negative except for those stated above PFSH <OMAR Weiner - Last Filed: 10/27/18 21:18> Medical History Migraines (Chronic) Fibromyalgia (Chronic ~05/2017) History of PCR DNA positive for HSV1 (Acute ~2014) Hypothyroidism (Chronic ~2008) Anxiety (Chronic) Asthma (Chronic) Depression (Chronic) Diverticular disease (Chronic ~2015) Irritable bowel syndrome (Chronic) Rheumatoid arthritis (Chronic) Surgical History Status post delivery (12/30/14) Status post laparoscopic supracervical hysterectomy (10/23/15) Status post laparoscopy (01/19/16) Status post surgery (07/07/12) Status post tubal ligation (12/30/14) Family History Grandmother Stroke Grandfather Heart disease Cancer Father Hypertension Social History household members: spouse and children Smoking Status: Current some day smoker Family History Grandmother Stroke Grandfather Heart disease Cancer Father Hypertension Social History household members: spouse and children Smoking Status: Current some day smoker Exam <OMAR Wenier - Last Filed: 10/27/18 21:18> Narrative Exam Narrative: GENERAL: Obese female no acute distress HEAD: Atraumatic. Normocephalic. No temporal or scalp tenderness. EYES: Pupils equal round and reactive. Extraocular motions intact. No scleral icterus. No injection or drainage. ENT: Nose without bleeding, purulent drainage or septal hematoma. Throat without erythema, tonsillar hypertrophy or exudate. Uvula midline. Airway patent. NECK: Trachea midline. No JVD or lymphadenopathy. Supple, nontender, no meningeal signs. CARDIOVASCULAR: Regular rate and rhythm RESPIRATORY: No cough. No increased respiratory effort. No accessory muscle use EXTREMITIES: Ecchymosis noted to left knee, positive pedal pulses left foot. Slight erythema noted front of tibia. Patient is able to bend knee to 90?. Declines any laxity exam. Able to ambulate steadily. Pain to palpation of lower tibia, no pain to palpation tibial plateau. BACK: Nontender without deformity or crepitance. No flank tenderness. NEURO: AOx3. SKIN: See above extremity exam Initial Vital Signs Initial Vital Signs: Vital Signs Temperature 98.6 F 10/27/18 17:20 Pulse Rate 82 10/27/18 17:20 Respiratory Rate 14 10/27/18 17:20 Blood Pressure 145/96 H 10/27/18 17:20 Pulse Oximetry 98 10/27/18 17:20 <Nguyễn Valladares DO - Last Filed: 10/27/18 23:55> Initial Vital Signs Initial Vital Signs: Vital Signs Temperature 98.6 F 10/27/18 17:20 Pulse Rate 82 10/27/18 17:20 Respiratory Rate 14 10/27/18 17:20 Blood Pressure 145/96 H 10/27/18 17:20 Pulse Oximetry 98 10/27/18 17:20 Course <OMAR Weiner - Last Filed: 10/27/18 21:18> Orders Ordered: ED Orders 10/27/18 19:07 XR tibia fibula LT 2V Stat Discontinued Medications Ketorolac Tromethamine (Toradol) 60 mg IM NOW ONE Stop: 10/27/18 18:21 Last Admin: 10/27/18 18:31 Dose: 60 mg Vital Signs - 8 hr 10/27/18 17:20 10/27/18 20:20 Temperature 98.6 F Pulse Rate 82 88 Respiratory Rate 14 18 Blood Pressure 145/96 H 130/80 Pulse Oximetry 98 98 <DO Marc Mosqueda Last Filed: 10/27/18 23:55> Orders Ordered: ED Orders 10/27/18 19:07 XR tibia fibula LT 2V Stat Discontinued Medications Ketorolac Tromethamine (Toradol) 60 mg IM NOW ONE Stop: 10/27/18 18:21 Last Admin: 10/27/18 18:31 Dose: 60 mg Vital Signs - 8 hr 10/27/18 17:20 10/27/18 20:20 Temperature 98.6 F Pulse Rate 82 88 Respiratory Rate 14 18 Blood Pressure 145/96 H 130/80 Pulse Oximetry 98 98 [facility] - Recheck/Abnormal Lab/Rx <OMAR Weiner - Last Filed: 10/27/18 21:18> Imaging Data Tibia x-ray: Radiologist's impression: [address] [address] XRay Report Signed Patient: Alina Pal LMR#: [id number] : 1980Acct:[id number] Age/Sex: 37 / FDate of Service: 10/27/18 Loc: ED Accession Number: [id number] Procedure: XR tibia fibula LT 2V Ordering Provider: Precious Lawson PROCEDURE: XR TIBIA FIBULA RT 2V INDICATIONS: pain status post fall TECHNIQUE: 2 views of the tibia and fibula were acquired. COMPARISON: None. FINDINGS: Bones: No fractures or dislocations. No suspicious bony lesions. Soft tissues: No suspicious soft tissue calcifications or masses. IMPRESSION: No acute fracture. No osseous lesion. If clinical suspicion and/or symptoms persist, further assessment with repeat plainfilms, or advanced imaging (e.g., CT, MRI, or bone scan) may be helpful for further assessment. Dictated by: Humza Brothers M.D. on 10/27/2018 at 19:36 Approved by: Humza Brothers M.D. on 10/27/2018 at 19:36 [facility] Narrative Medical decision making narrative: The patient is a 37-year-old female who presents with a chief complaint of continued knee pain. She had a negative x- ray on the of this month. She does have some pain to palpation of her tibia, so I did get imaging of that, which came back negative. She has been ambulating. She is able to bear weight. Several nurses evaluated her on her initial visit here today and stated that her ecchymosis and swelling is actually much improved, with a significant reduction of erythema. Thus with that she is on Levaquin, we elected to defer treating for cellulitis at this time especially given that her erythema is improving. She also denies any fevers or vomiting or systemic symptoms. The patient was under the understanding that I would be able to obtain an MRI of her knee at this point time. However I discussed that that is not the case and he would have to follow up with her [employer] provider as scheduled on . Given that she can ambulate and it has only been since the of this month that she had x-rays, I do not want to obtain repeat x-rays for an occult fracture at this point time. I discussed at length continued bbwu-cac-hikwkia pain medications, using Tylenol instead of Motrin for steroid use as well as rest ice compression elevation. Discussed keeping her [facility] [employer] provider follow-up on . No questions or concerns upon discharge. Discharge Plan Departure Patient Disposition: Home Clinical Impression: Acute leg pain Qualifiers: Laterality: left Qualified Code(s): M79.605 - Pain in left leg Contusion of knee, left Qualifiers: Encounter type: initial encounter Qualified Code(s): S80.02XA - Contusion of left knee, initial encounter Discharge Date/Time: 10/27/18 20:20 Interventions: ED Discharge Assessment Last Done: 10/27/18 20:20 Instructions: DI for Contusion, DI for Knee Pain Activity Restrictions/Additional Instructions: Please follow up with her [employer] provider as scheduled on . I am sorry that I am unable to order an MRI on your knee from the emergency department. This will have to be done on an outpatient basis. Please come back to the emergency department for any acute concerns such as chest pain, shortness of breath inability keep down fluids Please continue rest ice compression elevation as well as jiuc-qqy-kcyljsi pain medications as needed and able. Prescriptions: No Action ibuprofen 600 mg tablet 600 mg PO Q6HP PRN (Reason: pain) Qty: 20 RF: 0 Ventolin HFA 90 mcg/actuation HFA aerosol inhaler 2 puff INHALATION Q4HP PRN (Reason: shortness of breath or wheezing) Qty: 1 RF: 5 albuterol sulfate 2.5 mg /3 mL (0.083 %) solution for nebulization 2.5 mg INHALATION Q4-6H PRN (Reason: bronchospasm) Qty: 90 RF: 0 amitriptyline 75 mg tablet 225 mg PO BEDTIME Qty: 120 RF: 0 hydrocodone-acetaminophen 5-325 mg tablet 1 tab PO Q6H Qty: 112 RF: 0 minoxidil 5 % foam See Rx Instructions TOP DAILY Qty: 180 RF: 0 zolpidem 12.5 mg tablet,ext release multiphase 12.5 mg PO BEDTIME PRN (Reason: insomnia) Qty: 30 RF: 0 methylphenidate HCl 5 mg tablet 15 mg PO BID Qty: 180 RF: 0 inhalational spacing device [Timmy Aerosol Dickenson Enhancer] spacer .ROUTE .MEDSUPPLY Qty: 1 RF: 0 pregabalin 200 mg capsule 200 mg PO BID Qty: 60 RF: 1 levothyroxine 112 mcg tablet 112 mcg PO DAILY Qty: 90 RF: 1 budesonide 0.25 mg/2 mL suspension for nebulization 2 ml INHALATION BID Qty: 120 RF: 1 ipratropium-albuterol 0.5 mg-3 mg(2.5 mg base)/3 mL solution for nebulization 3 ml INHALATION Q4H PRN (Reason: shortness of breath or wheezing) Qty: 180 RF: 0 dexamethasone 4 mg tablet See Rx Instructions PO Q8H Qty: 12 RF: 0 erythromycin 5 mg/gram (0.5 %) ointment 1 applictn EYE-RIGHT Q4H Qty: 3.5 RF: 0 oxycodone-acetaminophen [Percocet] 5-325 mg tablet 1 tab PO Q4H PRN (Reason: pain) Qty: 10 RF: 0 levofloxacin 750 mg tablet 750 mg PO DAILYX6 RF: 0 risperidone 0.5 mg tablet 0.5 - 1 mg PO BEDTIME RF: 0 duloxetine 60 mg capsule,delayed release(DR/EC) 60 mg PO DAILY RF: 0 duloxetine 30 mg capsule,delayed release(DR/EC) 30 mg PO DAILY RF: 0 cyclobenzaprine 10 mg tablet 10 mg PO TID Qty: 30 RF: 0 Referrals: Rebeca Meyer DO [Primary Care Provider] - <Nguyễn Valladares DO - Last Filed: 10/27/18 23:55> Cosign ED Attending Roberto Attestation: I was immediately available in the department for consultation. Documentation has been reviewed. I agree with assessment and plan.
== END 2018-10-27 20:20 | disposition home or self-care (01) ==
PROVIDERS: Emergency Provider Nurse Practitioner Family; Family Provider Family Medicine; PCP Family Medicine
DX: S80.02XD Contusion of left knee, subsequent encounter (principal); W01.0XXD Fall on same level from slipping, tripping and stumbling without subsequent striking against object, subsequent encounter; Y99.0 Civilian activity done for income or pay
CPT/HCPCS: 73590; 96372; 99282; 99283; J1885

== ENCOUNTER → 2018-11-19 12:50 | Outpatient (CLI) | payer OTHER, MEDICAID, SELFPAY ==
[2018-09-22 12:32] VITALS: BMI 46.3
--- NOTE | 2018-11-19 13:08 | DI.RAD.S_ITS ---
PROCEDURE: XR CHEST 2V INDICATIONS: Dyspnea on exertion TECHNIQUE: 2 views of the chest were acquired. COMPARISON: [facility], CR, XR CHEST 1V, 10/23/2018, 18:20. FINDINGS: Surgical changes and devices: None. Lungs and pleura: Streaky atelectasis projects in the right lung base without focal consolidation. No pleural effusions or pneumothorax. Mediastinum: Mediastinal contours are normal. Heart size is normal. Bones and chest wall: No suspicious bony abnormalities. Soft tissues appear unremarkable. IMPRESSION: Mild patchy atelectasis versus low-grade aspiration projects in the right lung base. No focal consolidation. Dictated by: Romario Lee M.D. on 11/19/2018 at 15:03 Approved by: Romario Lee M.D. on 11/19/2018 at 15:05
[2018-11-19 13:29] LABS: B Type Natriuretic Peptide < 100 (<100)
[2018-11-19 13:57] LABS: BUN Creatinine Ratio 21.7 (6-22); Blood Urea Nitrogen 13 mg/dL (7-17); Calcium 9.3 mg/dL (8.4-10.2); Carbon Dioxide 28 mmol/L (22-32); Chloride 102 mmol/L (98-107); Estimated Glomerular Filt Rate > 60.0 mL/min (>60); Glucose 145 mg/dL (70-100); HEMOLYSIS < 15 (0-50); Potassium 4.3 mmol/L (3.4-5.1); Sodium 138 mmol/L (137-145)
[2018-11-19 14:29] LABS: Thyroid Stimulating Hormone 2.45 uIU/mL (0.47-4.68)
[2018-11-19 15:26] LABS: Creatinine Urine Random 174.4 mg/dL
[2018-11-19 15:31] LABS: Microalbumin Urine Random 2.8 mg/dL (0-1.6)
== END ==
PROVIDERS: Family Provider Family Medicine; PCP Family Medicine; Visit Provider Physician Assistant
DX: E03.9 Hypothyroidism, unspecified (principal); R03.0 Elevated blood-pressure reading, without diagnosis of hypertension; R06.00 Dyspnea, unspecified; R60.9 Edema, unspecified; R06.09 Other forms of dyspnea
CPT/HCPCS: 36415; 71046; 80048; 82043; 82570; 83880; 84443

== ENCOUNTER → 2019-03-17 16:50 | Outpatient (CLI) | payer OTHER, MEDICAID, SELFPAY ==
[2018-09-22 12:32] VITALS: BMI 46.3
[2019-03-17 17:55] LABS: Add Manual Diff / Slide Review NO; Basophils Absolute Auto 100 /uL (0-100); Basophils Percent Auto 0.7 % (0-2); Eosinophils Absolute Auto 700 /uL (0-450); Eosinophils Percent Auto 6.1 % (2-4); Hematocrit 40.9 % (36-46); Hemoglobin 13.4 g/dL (12.0-16.0); Lymphocytes Absolute Auto 2100 /uL (1100-4500); Lymphocytes Percent Auto 18.6 % (25-40); Mean Corpuscular HGB Conc 32.8 % (30-36); Mean Corpuscular Hemoglobin 27.5 PG (26-34); Mean Corpuscular Volume 83.8 fL (80-100); Monocytes Absolute Auto 600 /uL (0-900); Monocytes Percent Auto 5.2 % (3-14); Neutrophils Absolute Auto 8000 /uL (1500-7000); Neutrophils Percent Auto 69.4 % (50-75); Platelet Count 352 X10^3/uL (150-400); Red Blood Cell Count 4.88 X10^6/uL (4.0-5.2); Red Cell Distribution Width 16.2 % (11.6-14.8); White Blood Cell Count 11.5 X10^3/uL (4.5-11.0)
[2019-03-17 19:28] LABS: Alanine Aminotransferase 29 IU/L (<35); Albumin 4.6 g/dL (3.5-5.0); Albumin Globulin Ratio 1.6 (1.0-2.8); Alkaline Phosphatase 147 U/L (38-126); Aspartate Aminotransferase 33 IU/L (14-36); BUN Creatinine Ratio 11.3 (6-22); Bilirubin Total 0.4 mg/dL (0.2-1.3); Blood Urea Nitrogen 9 mg/dL (7-17); Calcium 10.1 mg/dL (8.4-10.2); Carbon Dioxide 31 mmol/L (22-32); Chloride 100 mmol/L (98-107); Estimated Glomerular Filt Rate > 60.0 mL/min (>60); Globulin 2.9 g/dL (1.7-4.1); Glucose 101 mg/dL (70-100); HEMOLYSIS < 15 (0-50); Lipase 166 U/L (23-300); Potassium 4.5 mmol/L (3.4-5.1); Sodium 139 mmol/L (137-145); Total Protein 7.5 g/dL (6.3-8.2)
[2019-03-17 19:44] LABS: Free T3, Triiodothyronine Free 3.05 pg/mL (2.77-5.27); Free T4, Direct Thyroxine 0.84 ng/dL (0.78-2.19)
[2019-03-17 19:58] LABS: Thyroid Stimulating Hormone 2.41 uIU/mL (0.47-4.68)
[2019-03-22 13:55] LABS: Triiodothyronine T3 Reverse 17 ng/dL (8-25)
== END ==
PROVIDERS: Family Provider Family Medicine; PCP Family Medicine; Visit Provider Family Medicine
DX: E03.9 Hypothyroidism, unspecified (principal); R10.9 Unspecified abdominal pain
CPT/HCPCS: 36415; 80053; 83690; 84439; 84443; 84481; 84482; 85025

== ENCOUNTER → 2019-04-15 15:31 | Outpatient (CLI) | payer OTHER, MEDICAID, SELFPAY ==
[2018-09-22 12:32] VITALS: BMI 46.3
--- NOTE | 2019-04-15 15:32 | DI.RAD.S_ITS ---
PROCEDURE: XR KNEE LT 3V INDICATIONS: left knee pain TECHNIQUE: 3 views of the knee were acquired. COMPARISON: , CR, XR KNEE ARTHRITIC SERIES LT, 11/12/2018, 13:40. [facility], CR, XR TIBIA FIBULA LT 2V, 10/27/2018, 19:14. [facility], CR, XR KNEE LT 3V, 10/23/2018, 18:20. FINDINGS: Bones: No fractures or dislocations. Mild patellofemoral joint degeneration with small perivascular osteophytes. No suspicious bony lesions. Soft tissues: Trace joint effusion. No suspicious soft tissue calcifications. IMPRESSION: No acute osseous abnormalities. Mild degenerative joint disease and trace knee joint effusion. Dictated by: Medina Yuen M.D. on 04/15/2019 at 18:05 Approved by: Medina Yuen M.D. on 04/15/2019 at 18:06
== END ==
PROVIDERS: Family Provider Family Medicine; PCP Family Medicine; Visit Provider Nurse Practitioner Family
DX: M25.562 Pain in left knee (principal); M17.12 Unilateral primary osteoarthritis, left knee
CPT/HCPCS: 73562

== ENCOUNTER → 2019-05-26 16:58 | Outpatient (CLI) | payer OTHER, MEDICAID, SELFPAY ==
[2018-09-22 12:32] VITALS: BMI 46.3
--- NOTE | 2019-05-26 17:03 | DI.MRI.S_ITS ---
PROCEDURE: MR KNEE LT WO CON INDICATIONS: knee injury TECHNIQUE: Noncontrast sagittal PD fast spin echo and T2 fast spin echo with fat saturation, sagittal 3-D FLASH with fat saturation; coronal T1 spin echo and PD fast spin echo with fat saturation, and axial PD fast spin echo with fat saturation through the knee. COMPARISON: None. FINDINGS: Image quality: Excellent. Menisci: No discrete medial meniscal tear is not well seen although there is partial extrusion of the body Lateral meniscus intact. Cruciate ligaments: Anterior cruciate ligament appears intact. Posterior cruciate ligament appears intact. Medial structures: The medial collateral ligament appears bowed and there is adjacent soft tissue edema however no complete rupture. This suggests low-grade sprain, versus reactive changes. Semimembranosus tendon appears intact. Visualized portions of the pes anserinus tendons appear normal. No abnormal bursal fluid. Lateral structures: The lateral collateral ligament intact. Biceps femoris tendon appears intact. Popliteus tendon grossly unremarkable. Iliotibial band appears intact. Anterior structures: Quadriceps tendon intact. Medial and lateral patellofemoral ligaments intact. There is mild patellar tendinopathy. Prepatellar and superficial infrapatellar subcutaneous edema/fluid. Bones and cartilage: No focal marrow contusion or discrete low signal fracture line. Within the medial compartment, diffuse partial-thickness loss of the femoral and tibial articular cartilage Within the lateral compartment, mild surface fraying of the femoral and tibial cartilage Within the patellofemoral compartment, no focal articular cartilage defect Joint space: Large joint effusion. Large multiloculated Law's cyst measuring 5 cm in the cephalocaudad dimension. This may be partially ruptured. No specific evidence of intra-articular loose body. IMPRESSION: No discrete medial meniscal tear visualized by MR however partial extrusion of body is noted. Low-grade sprain of the MCL. Mild degenerative joint disease as above Patellar tendinopathy with adjacent edema/fluid Large multiloculated Law's cyst, partially ruptured Dictated by: Romario Lee M.D. on 05/27/2019 at 10:37 Approved by: Romario Lee M.D. on 05/27/2019 at 11:11
== END ==
PROVIDERS: Family Provider Family Medicine; PCP Family Medicine; Visit Provider Family Medicine
DX: M25.562 Pain in left knee (principal); S86.812A Strain of other muscle(s) and tendon(s) at lower leg level, left leg, initial encounter; S83.412A Sprain of medial collateral ligament of left knee, initial encounter; M17.12 Unilateral primary osteoarthritis, left knee; X58.XXXA Exposure to other specified factors, initial encounter
CPT/HCPCS: 73721

== ENCOUNTER 2019-07-10 01:57 | Emergency (ER) | payer OTHER, MEDICAID, SELFPAY ==
[2018-09-22 12:32] VITALS: BMI 46.3
[2019-07-10 02:18] VITALS: BP 134/77; PULSE 91; RESP 16; TEMP 36.1; O2SAT 95; BMI 44.9
[2019-07-10 02:35] LABS: RBC Urine None Seen (0-5/HPF); WBC Urine None Seen (0-5/HPF)
[2019-07-10 02:36] LABS: Appearance Urine UA CLEAR; Bilirubin Urine UA NEGATIVE (NEGATIVE); Color Urine UA YELLOW; Glucose Urine UA NEGATIVE (Negative); Ketones Urine UA NEGATIVE (NEGATIVE); Leukocyte Esterase Urine UA NEGATIVE (NEGATIVE); Nitrite Urine UA NEGATIVE (Negative); Occult Blood Urine UA NEGATIVE (Negative); Protein Urine UA NEGATIVE (Negative); Specific Gravity Urine UA <=1.005 (1.000-1.035); Urobilinogen Urine UA 0.2 E.U./dL (0.2)
[2019-07-10 02:40] LABS: pH Urine UA 6.5 (4.5-8.0)
[2019-07-10 02:41] LABS: UR Morphine/Opiate cutoff 300 Negative (Negative); Ur Creatinine Normal (Normal); Ur Specific Gravity Normal (Normal); Urine Amphetamines Negative (Negative); Urine Barbiturates Negative (Negative); Urine Benzodiazepines Negative (Negative); Urine Cocaine Negative (Negative); Urine MDMA Negative (Negative); Urine Methadone Negative (Negative); Urine Methamphetamines Negative (Negative); Urine Phencyclidine Negative (Negative); Urine Tetrahydrocannabinol Negative (Negative); Urine pH Normal (Normal)
[2019-07-10 02:42] LABS: Urine Oxycodone Negative (Negative); Urine Tricyclic Antidepressant Positive (Negative)
[2019-07-10 02:43] LABS: Bacteria Urine Few (2-10); Culture Indicated Urine Cult Not Indicated; Squamous Epithelial Cell Urine 1-5 /HPF (0-5/HPF)
[2019-07-10 03:06] LABS: Add Manual Diff / Slide Review NO; Basophils Absolute Auto 100 /uL (0-100); Basophils Percent Auto 0.7 % (0-2); Eosinophils Absolute Auto 600 /uL (0-450); Eosinophils Percent Auto 5.5 % (2-4); Hematocrit 41.6 % (36-46); Hemoglobin 13.7 g/dL (12.0-16.0); Lymphocytes Absolute Auto 2700 /uL (1100-4500); Lymphocytes Percent Auto 24.5 % (25-40); Mean Corpuscular HGB Conc 33.1 % (30-36); Mean Corpuscular Hemoglobin 28.6 PG (26-34); Mean Corpuscular Volume 86.4 fL (80-100); Monocytes Absolute Auto 600 /uL (0-900); Monocytes Percent Auto 5.5 % (3-14); Neutrophils Absolute Auto 7100 /uL (1500-7000); Neutrophils Percent Auto 63.8 % (50-75); Platelet Count 338 X10^3/uL (150-400); Red Blood Cell Count 4.81 X10^6/uL (4.0-5.2); Red Cell Distribution Width 16.7 % (11.6-14.8); White Blood Cell Count 11.2 X10^3/uL (4.5-11.0)
[2019-07-10 03:16] LABS: Alanine Aminotransferase 27 IU/L (<35); Albumin 4.4 g/dL (3.5-5.0); Albumin Globulin Ratio 1.3 (1.0-2.8); Alkaline Phosphatase 158 U/L (38-126); Aspartate Aminotransferase 31 IU/L (14-36); BUN Creatinine Ratio 17.1 (6-22); Bilirubin Total 0.3 mg/dL (0.2-1.3); Blood Urea Nitrogen 12 mg/dL (7-17); Calcium 11.2 mg/dL (8.4-10.2); Carbon Dioxide 36 mmol/L (22-32); Chloride 102 mmol/L (98-107); Estimated Glomerular Filt Rate > 60.0 mL/min (>60); Globulin 3.5 g/dL (1.7-4.1); Glucose 118 mg/dL (70-100); HEMOLYSIS < 15 (0-50); Potassium 4.2 mmol/L (3.4-5.1); Sodium 143 mmol/L (137-145); Total Protein 7.9 g/dL (6.3-8.2)
[2019-07-10 03:25] LABS: Ethanol (ETOH) 182 mg/dL
--- NOTE | 2019-07-10 05:27 | ED.PSYCH ---
HPI - Psych General Chief Complaint: Psychiatric Symptoms Stated Complaint: SI Time Seen by Provider: 07/10/19 02:08 Source: EMS Mode of arrival: EMS Limitations: no limitations History of Present Illness HPI Narrative: 38F smoker with history of depression and alcohol abuse presents with a chief complaint of suicidal ideation without a plan. She states that there are just too many things adding up, when asked if she has a plan she states no. When asked if she can go home safely she states no. She is prescribed antidepressants by her primary care provider but does not routinely see a therapist. She is requesting help and would like to see a social media senior associate MD complaint: suicidal ideation and feels depressed Onset (ago): hour(s) Duration: constant History of same: No Relieving factors: none Context: recent alcohol abuse Associated psychiatric symptoms: depression and suicidal ideation Associated symptoms: denies other symptoms Treatments prior to arrival: none If self harm: admits thoughts of self harm Related Data Allergies Allergy/AdvReac Type Severity Reaction Status Date / Time No Known Drug Allergies Allergy Verified 07/10/19 02:27 Review of Systems Constitutional Constitutional: Denies chills, Denies fatigue, Denies fever(s), Denies frequent falls, Denies lethargy and Denies weakness Eyes Eyes: Denies change in vision, Denies eye discharge, Denies irritation and Denies loss of vision ENT Ears, Nose, Mouth, and Throat: Denies change in voice, Denies dizziness, Denies neck pain, Denies sore throat and Denies throat swelling Cardiovascular Cardiovascular: Denies chest pain, Denies irregular heart rhythm, Denies lightheadedness, Denies palpitations, Denies dyspnea, Denies dyspnea on exertion and Denies orthopnea Respiratory Respiratory: Denies cough, Denies dyspnea, Denies dyspnea on exertion and Denies wheezing Gastrointestinal Gastrointestinal: Denies abdominal pain, Denies change in bowel habits, Denies diarrhea, Denies nausea and Denies vomiting Genitourinary Genitourinary: Denies hematuria, Denies flank pain, Denies urinary incontinence and Denies urinary urgency Musculoskeletal Musculoskeletal: Denies back pain, Denies muscle weakness, Denies neck pain, Denies numbness and Denies tingling Integumentary/Breasts Skin/Breast: Denies pruritus, Denies erythema, Denies rash and Denies wounds Neurologic Neurologic: Denies behavioral changes, Denies confusion, Denies dizziness, Denies frequent falls, Denies loss of vision, Denies numbness, Denies tingling and Denies weakness Psychiatric Psychiatric: Denies anxiety, Denies behavioral changes, Denies confusion, Reports depression, Denies homicidal ideation and Reports suicidal ideation Endocrine Endocrine: Denies fatigue, Denies flushing and Denies palpitations Hematologic/Lymphatic Hematologic/Lymphatic: Denies easy bruising Allergic/Immunologic Allergic/Immunologic: Denies urticaria, Denies throat swelling and Denies wheezing Patient History Social History Smoking Status: Current some day smoker Smoking Status: Current some day smoker alcohol intake frequency: a few times a week Substance Use Type: does not use Exam Narrative Exam Narrative: GENERAL: [38] year old patient appears stated age. Well-nourished, well-developed patient, in mild distress. Tearful, flat affect HEAD: Atraumatic. Normocephalic. EYES: Pupils equal round and reactive. Extraocular motions intact. No scleral icterus. No injection or drainage. ENT: Nose without bleeding, purulent drainage. Throat without erythema, tonsillar hypertrophy or exudate. Airway patent. NECK: Trachea midline. Non tender CARDIOVASCULAR: Regular rate and rhythm without murmurs, gallops, or rubs. RESPIRATORY: Clear to auscultation. Breath sounds equal bilaterally. No wheezes, rales, or rhonchi. GASTROINTESTINAL: Abdomen soft, non-tender, nondistended. EXTREMITIES: No edema or joint tenderness. BACK: Nontender without deformity or crepitance. No flank tenderness. NEURO: AOx3. SKIN: No rash or erythema of visible areas Initial Vital Signs Initial Vital Signs: Vital Signs Temperature 96.9 F L 07/10/19 02:18 Pulse Rate 91 H 07/10/19 02:18 Respiratory Rate 16 07/10/19 02:18 Blood Pressure 134/77 07/10/19 02:18 Pulse Oximetry 95 07/10/19 02:18 Course Orders Ordered: ED Orders 07/10/19 02:20 Urinalysis and Microscopic Stat Urine Drug Screen, Rapid Stat 07/10/19 02:52 Complete Blood Count AUTO DIFF Stat Comprehensive Metabolic Panel Stat Ethanol (ETOH) Stat Thyroid Stimulating Hormone Stat Vital Signs Vital signs: Vital Signs - 8 hr 03/07/20 02:18 Temperature 96.9 F L Pulse Rate 91 H Respiratory Rate 16 Blood Pressure 134/77 Pulse Oximetry 95 MDM - Psych Lab Data Result diagrams: 07/10/19 02:52 07/10/19 02:52 Labs: Lab Results 07/10/19 07/10/19 07/10/19 Range/Units 02:20 02:20 02:52 WBC 11.2 H (4.5-11.0) X10^3/uL RBC 4.81 (4.0-5.2) X10^6/uL Hgb 13.7 (12.0-16.0) g/dL Hct 41.6 (36-46) % MCV 86.4 (80-100) fL MCH 28.6 (26-34) PG MCHC 33.1 (30-36) % RDW 16.7 H (11.6-14.8) % Plt Count 338 (150-400) X10^3/uL Neut % (Auto) 63.8 (50-75) % Lymph % (Auto) 24.5 L (25-40) % [place] % (Auto) 5.5 (3-14) % Eos % (Auto) 5.5 H (2-4) % Baso % (Auto) 0.7 (0-2) % Neut # (Auto) 7100 H (8529-4996) /uL Lymph # (Auto) 2700 (5351-8270) /uL [place] # (Auto) 600 (0-900) /uL Eos # (Auto) 600 H (0-450) /uL Baso # (Auto) 100 (0-100) /uL Sodium (137-145) mmol/L Potassium (3.4-5.1) mmol/L Chloride (98-107) mmol/L Carbon Dioxide (22-32) mmol/L BUN (7-17) mg/dL Creatinine (0.52-1.04) mg/dL Estimated GFR (>60) mL/min BUN/Creatinine Ratio (6-22) Glucose (70-100) mg/dL Calcium (8.4-10.2) mg/dL Total Bilirubin (0.2-1.3) mg/dL AST (14-36) IU/L ALT (<35) IU/L Alkaline Phosphatase (38-126) U/L Total Protein (6.3-8.2) g/dL Albumin (3.5-5.0) g/dL Globulin (1.7-4.1) g/dL Albumin/Globulin Ratio (1.0-2.8) TSH (0.47-4.68) uIU/mL Urine Color Yellow Urine Appearance Clear Urine pH 6.5 (4.5-8.0) Ur Specific Watson <=1.005 (1.000-1.035) Urine Protein Negative (Negative) Urine Glucose (UA) Negative (Negative) g/dL Urine Ketones Negative (NEGATIVE) Urine Occult Blood Negative (Negative) Urine Nitrate Negative (Negative) Urine Bilirubin Negative (NEGATIVE) Urine Urobilinogen 0.2 (0.2) E.U./dL Ur Leukocyte Esterase Negative (NEGATIVE) Urine RBC None seen (0-5/HPF) Urine WBC None seen (0-5/HPF) Ur Squamous Epith Cells 1-5 /hpf (0-5/HPF) Urine Bacteria Few (2-10) H (None) Ur Culture Indicated? Cult not indicated U Opiates 300ng/mL cut Negative (Negative) Ur Oxycodone Screen Negative (Negative) Urine Methadone Screen Negative (Negative) Ur Barbiturates Screen Negative (Negative) U Tricyclic Antidepress Positive H (Negative) Ur Phencyclidine Scrn Negative (Negative) Ur Amphetamines Screen Negative (Negative) U Methamphetamines Scrn Negative (Negative) Ur MDMA Scrn (Ecstasy) Negative (Negative) U Benzodiazepines Scrn Negative (Negative) Urine Cocaine Screen Negative (Negative) U Marijuana (THC) Screen Negative (Negative) Ethyl Alcohol ( - 10) mg/dL 07/10/19 07/10/19 Range/Units 02:52 02:52 WBC (4.5-11.0) X10^3/uL RBC (4.0-5.2) X10^6/uL Hgb (12.0-16.0) g/dL Hct (36-46) % MCV (80-100) fL MCH (26-34) PG MCHC (30-36) % RDW (11.6-14.8) % Plt Count (150-400) X10^3/uL Neut % (Auto) (50-75) % Lymph % (Auto) (25-40) % [place] % (Auto) (3-14) % Eos % (Auto) (2-4) % Baso % (Auto) (0-2) % Neut # (Auto) (2393-1533) /uL Lymph # (Auto) (1016-3473) /uL [place] # (Auto) (0-900) /uL Eos # (Auto) (0-450) /uL Baso # (Auto) (0-100) /uL Sodium 143 (137-145) mmol/L Potassium 4.2 (3.4-5.1) mmol/L Chloride 102 (98-107) mmol/L Carbon Dioxide 36 H (22-32) mmol/L BUN 12 (7-17) mg/dL Creatinine 0.70 (0.52-1.04) mg/dL Estimated GFR > 60.0 (>60) mL/min BUN/Creatinine Ratio 17.1 (6-22) Glucose 118 H (70-100) mg/dL Calcium 11.2 H (8.4-10.2) mg/dL Total Bilirubin 0.3 (0.2-1.3) mg/dL AST 31 (14-36) IU/L ALT 27 (<35) IU/L Alkaline Phosphatase 158 H (38-126) U/L Total Protein 7.9 (6.3-8.2) g/dL Albumin 4.4 (3.5-5.0) g/dL Globulin 3.5 (1.7-4.1) g/dL Albumin/Globulin Ratio 1.3 (1.0-2.8) TSH 4.50 (0.47-4.68) uIU/mL Urine Color Urine Appearance Urine pH (4.5-8.0) Ur Specific [place] (1.000-1.035) Urine Protein (Negative) Urine Glucose (UA) (Negative) g/dL Urine Ketones (NEGATIVE) Urine Occult Blood (Negative) Urine Nitrate (Negative) Urine Bilirubin (NEGATIVE) Urine Urobilinogen (0.2) E.U./dL Ur Leukocyte Esterase (NEGATIVE) Urine RBC (0-5/HPF) Urine WBC (0-5/HPF) Ur Squamous Epith Cells (0-5/HPF) Urine Bacteria (None) Ur Culture Indicated? U Opiates 300ng/mL cut (Negative) Ur Oxycodone Screen (Negative) Urine Methadone Screen (Negative) Ur Barbiturates Screen (Negative) U Tricyclic Antidepress (Negative) Ur Phencyclidine Scrn (Negative) Ur Amphetamines Screen (Negative) U Methamphetamines Scrn (Negative) Ur MDMA Scrn (Ecstasy) (Negative) U Benzodiazepines Scrn (Negative) Urine Cocaine Screen (Negative) U Marijuana (THC) Screen (Negative) Ethyl Alcohol 182 H ( - 10) mg/dL MDM Narrative Medical decision making narrative: Patient rested comfortably much of the night and though initially she wanted to see a social media senior associate as she sobered up, and awoke from her sleep she decided that she would prefer to contract for safety and go home. She denies any ongoing thoughts of wanting to hurt herself. She has friends and family around her. She does not have access to a firearm. She feels quite comfortable reaching out to various crisis resources should her symptoms escalate, she understands she may return to the emergency department if needed. She has been given return precautions and has had her questions answered to her apparent satisfaction Discharge Plan Departure Patient Disposition: Home Clinical Impression: Suicidal ideation Depression Qualifiers: Depression Type: major depressive disorder Major depression recurrence: single episode Active/Remission status: remission status unspecified Qualified Code(s): F32.9 - Major depressive disorder, single episode, unspecified Discharge Date/Time: 07/10/19 06:55 Instructions: DI for Suicidal Ideation-Adult Activity Restrictions/Additional Instructions: *You have been diagnosed with [severe depression with suicidal ideation and alcohol intoxication] *What to do: *Take medications as directed *Follow up with your primary care provider in 2-3 days, call for an appointment. Let them know you were seen in the Emergency Department and that we ask that you be seen in follow up *Return to ER if you should have any new, worsening or concerning symptoms Referrals: [facility] [Outside]
[2019-07-10 06:55] VITALS: BP 123/69; PULSE 91; RESP 15; O2SAT 96
== END 2019-07-10 06:55 | disposition home or self-care (01) ==
PROVIDERS: Emergency Provider Emergency Medicine
DX: R45.851 Suicidal ideations (principal); F32.9 Major depressive disorder, single episode, unspecified
CPT/HCPCS: 36415; 80053; 80305; 80320; 81001; 84443; 85025; 99281; 99283

== ENCOUNTER 2019-08-17 17:49 | Emergency (ER) | payer OTHER, MEDICAID, SELFPAY ==
[2018-09-22 12:32] VITALS: BMI 46.3
[2019-08-17 17:59] VITALS: BP 175/115; PULSE 97; RESP 22; TEMP 36.9; O2SAT 98
--- NOTE | 2019-08-17 18:05 | DI.RAD.S_ITS ---
PROCEDURE: XR CHEST 1V INDICATIONS: chest pain. TECHNIQUE: One view of the chest was acquired. COMPARISON: [facility], CR, XR CHEST 1V, 10/23/2018, 18:20. [facility], CR, XR CHEST 2V, 11/19/2018, 13:15. FINDINGS: Surgical changes and devices: None. Lungs and pleura: Lungs are clear. No pleural effusions or pneumothorax. Mediastinum: Mediastinal contours appear normal. Heart size is normal. Bones and chest wall: No suspicious bony lesions. Overlying soft tissues appear unremarkable. IMPRESSION: No acute cardiopulmonary disease. Dictated by: Medina Yuen M.D. on 08/17/2019 at 18:30 Approved by: Medina Yuen M.D. on 08/17/2019 at 18:31
[2019-08-17] MEDS: ALBUTEROL HFA 60 PUFF/8 GM INH INH (18:14)
[2019-08-17 18:25] LABS: Add Manual Diff / Slide Review NO; Basophils Absolute Auto 200 /uL (0-100); Basophils Percent Auto 1.9 % (0-2); Eosinophils Absolute Auto 300 /uL (0-450); Eosinophils Percent Auto 2.8 % (2-4); Hematocrit 40.9 % (36-46); Hemoglobin 13.7 g/dL (12.0-16.0); Lymphocytes Absolute Auto 900 /uL (1100-4500); Lymphocytes Percent Auto 10.2 % (25-40); Mean Corpuscular HGB Conc 33.4 % (30-36); Mean Corpuscular Hemoglobin 29.4 PG (26-34); Mean Corpuscular Volume 87.9 fL (80-100); Monocytes Absolute Auto 400 /uL (0-900); Monocytes Percent Auto 4.5 % (3-14); Neutrophils Absolute Auto 7400 /uL (1500-7000); Neutrophils Percent Auto 80.6 % (50-75); Platelet Count 316 X10^3/uL (150-400); Red Blood Cell Count 4.65 X10^6/uL (4.0-5.2); Red Cell Distribution Width 17.6 % (11.6-14.8); White Blood Cell Count 9.2 X10^3/uL (4.5-11.0)
[2019-08-17 18:34] LABS: Alanine Aminotransferase 20 IU/L (<35); Albumin 4.5 g/dL (3.5-5.0); Albumin Globulin Ratio 1.3 (1.0-2.8); Alkaline Phosphatase 171 U/L (38-126); Aspartate Aminotransferase 27 IU/L (14-36); BUN Creatinine Ratio 11.9 (6-22); Bilirubin Total 0.6 mg/dL (0.2-1.3); Blood Urea Nitrogen 8 mg/dL (7-17); Calcium 9.5 mg/dL (8.4-10.2); Carbon Dioxide 29 mmol/L (22-32); Chloride 103 mmol/L (98-107); Estimated Glomerular Filt Rate > 60.0 mL/min (>60); Globulin 3.6 g/dL (1.7-4.1); Glucose 119 mg/dL (70-100); HEMOLYSIS < 15 (0-50); Lipase 25 U/L (23-300); Potassium 3.9 mmol/L (3.4-5.1); Sodium 139 mmol/L (137-145); Total Protein 8.1 g/dL (6.3-8.2)
--- NOTE | 2019-08-17 18:36 | ED.GENADULT ---
HPI - General Adult General Chief complaint: Upper Respiratory Symptoms Stated complaint: difficulty breathing, fever, chest pain Time Seen by Provider: 08/17/19 18:36 Source: patient Mode of arrival: Ambulatory History of Present Illness HPI narrative: 38-year-old woman with a history of asthma, depression, anxiety, hypothyroidism presents with 3 days of increasing wheeze nonproductive cough and 24 hours of fever. She states that she has been using her nebulizer almost every 3 hours and finds it is no longer helpful. She complains of tachypnea and subjective dyspnea. Denies nausea, vomiting, diarrhea, abdominal pain. She noted today that she was having more centralized chest pain worse with deep breathing and palpation around the breast bone bilaterally. Related Data Home Medications Medication Instructions Recorded Confirmed meloxicam 15 mg tablet 15 mg PO DAILY 07/02/19 07/02/19 Previous Rx's Medication Instructions Recorded inhalational spacing device #1 each 02/05/18 ipratropium 0.5 mg-albuterol 3 mg 3 ml INHALATION Q4H PRN #180 ml 06/26/18 (2.5 mg base)/3 mL nebulization soln levothyroxine 112 mcg tablet 112 mcg PO DAILY #90 tab 09/17/18 amitriptyline 75 mg tablet 225 mg PO BEDTIME #120 tab 01/06/19 albuterol sulfate 2.5 mg INHALATION Q4-6H PRN #90 ml 06/02/19 zolpidem 10 mg tablet 10 mg PO BEDTIME PRN #30 tab 07/02/19 pregabalin 200 mg capsule 200 mg PO BID #60 cap 07/05/19 albuterol sulfate 90 mcg/actuation 2 puff INHALATION Q4HP PRN #1 each 07/30/19 aerosol inhaler duloxetine 30 mg capsule,delayed 30 mg PO DAILY #30 cap 07/30/19 release duloxetine 60 mg capsule,delayed 60 mg PO DAILY #30 cap 07/30/19 release methylphenidate HCl 10 mg tablet 15 mg PO BID #90 tab 07/30/19 oxycodone-acetaminophen 5 mg-325 1 tab PO Q6H PRN #120 tab 08/09/19 mg tablet azithromycin 250 mg PO DAILY 4 Days tab 08/17/19 prednisone 20 mg PO DAILY #5 tab 08/17/19 Allergies Allergy/AdvReac Type Severity Reaction Status Date / Time Penicillins [PENICILLINS] Allergy Unknown Verified 07/12/19 08:26 fluconazole [From DIFLUCAN] AdvReac Intermediate vomiting Verified 07/12/19 08:26 and abd pain codeine [CODEINE] AdvReac Mild NAUSEA Verified 07/12/19 08:26 Review of Systems Review of Systems Narrative: All systems reviewed and are unremarkable except as noted in HPI and below Patient History Medical History Anxiety (Chronic) Asthma (Chronic) Depression (Chronic) Diverticular disease (Chronic ~2015) Fibromyalgia (Chronic ~05/2017) Gestational diabetes mellitus (GDM) (Inactive 10/27/14) History of PCR DNA positive for HSV1 (Inactive ~2014) Hypothyroidism (Chronic ~2008) Irritable bowel syndrome (Chronic) Migraines (Chronic) Rheumatoid arthritis (Chronic) Surgical History Status post delivery (12/30/14) Status post laparoscopic supracervical hysterectomy (10/23/15) Status post laparoscopy (01/19/16) Status post surgery (07/07/12) Status post tubal ligation (12/30/14) Family History Grandmother Stroke Grandfather Heart disease Cancer Father Hypertension Social History household members: spouse and children Smoking Status: Current some day smoker Smoking Status: Current some day smoker alcohol intake frequency: a few times a week Substance Use Type: does not use Exam Narrative Exam Narrative: General: Healthy appearing, in moderate respiratory distress. Able to give a complete and coherent history, speaking in full sentences with no accessory muscle use. Well-nourished well-developed HEENT: Moist mucous membranes, normal sclera with reactive pupils, Neck: supple Respiratory: Minor scattered wheezes throughout all lung sánchez with rhonchi bilaterally right significantly greater than left. Full and symmetrical air movement Cardiac: Regular rate and rhythm no murmurs no bruits Abdomen: Soft nontender good bowel tones, no flank pain Skin: Warm and dry, no rashes Neurologic: Grossly neurologically intact with no obvious asymmetries or abnormalities Extremities: No trauma, well perfused, no lower extremity edema Psych: Cooperative, appropriate insight and affect Initial Vital Signs Initial Vital Signs: Vital Signs Temperature 98.5 F 08/17/19 17:59 Pulse Rate 97 H 08/17/19 17:59 Respiratory Rate 22 08/17/19 17:59 Blood Pressure 175/115 H 08/17/19 17:59 Pulse Oximetry 98 08/17/19 17:59 Course Orders Ordered: Discontinued Medications Albuterol (Ventolin Hfa) 2 puff INH NOW ONE Stop: 08/17/19 18:09 Last Admin: 08/17/19 18:14 Dose: 2 puff Documented by: AMADOU Ceftriaxone Sodium/Dextrose (Rocephin) 2 gm in 50 mls @ 100 mls/hr IV NOW ONE Stop: 08/17/19 19:18 Last Infusion: 08/17/19 19:32 Dose: 0 mls/hr Documented by: Admin: 08/17/19 18:58 Dose: 100 mls/hr Documented by: ANAHY Sodium Chloride (Normal Saline 0.9%) 1,000 mls @ 1,000 mls/hr IV BOLUS ONE Stop: 08/17/19 19:48 Last Infusion: 08/17/19 20:08 Dose: 0 mls/hr Documented by: Admin: 08/17/19 18:58 Dose: 1,000 mls/hr Documented by: ANAHY Azithromycin 500 mg/ Dextrose 250 mls @ 250 mls/hr IV NOW ONE Stop: 08/17/19 18:50 Last Infusion: 08/17/19 20:56 Dose: 0 mls/hr Documented by: Admin: 08/17/19 19:32 Dose: 250 mls/hr Documented by: ANAHY Methylprednisolone (Solu-Medrol 125 Mg Vial) 125 mg IV NOW ONE Stop: 08/17/19 18:50 Last Admin: 08/17/19 18:58 Dose: 125 mg Documented by: ANAHY Vital Signs Vital signs: Vital Signs - 8 hr 08/17/19 17:59 08/17/19 18:56 Temperature 98.5 F Pulse Rate 97 H 95 H Respiratory Rate 22 Blood Pressure 175/115 H Pulse Oximetry 98 96 Medical Decision Making Medical Records Medical records reviewed: Yes I reviewed the patient's medical records. Lab Data Lab results reviewed: Yes I reviewed the patient's lab results. Result diagrams: 08/17/19 18:15 08/17/19 18:15 Labs: Lab Results 08/17/19 08/17/19 08/17/19 Range/Units 18:15 18:15 18:15 WBC 9.2 (4.5-11.0) X10^3/uL RBC 4.65 (4.0-5.2) X10^6/uL Hgb 13.7 (12.0-16.0) g/dL Hct 40.9 (36-46) % MCV 87.9 (80-100) fL MCH 29.4 (26-34) PG MCHC 33.4 (30-36) % RDW 17.6 H (11.6-14.8) % Plt Count 316 (150-400) X10^3/uL Neut % (Auto) 80.6 H (50-75) % Lymph % (Auto) 10.2 L (25-40) % [place]house % (Auto) 4.5 (3-14) % Eos % (Auto) 2.8 (2-4) % Baso % (Auto) 1.9 (0-2) % Neut # (Auto) 7400 H (5932-3570) /uL Lymph # (Auto) 900 L (1151-1412) /uL [place] # (Auto) 400 (0-900) /uL Eos # (Auto) 300 (0-450) /uL Baso # (Auto) 200 H (0-100) /uL Sodium 139 (137-145) mmol/L Potassium 3.9 (3.4-5.1) mmol/L Chloride 103 (98-107) mmol/L Carbon Dioxide 29 (22-32) mmol/L BUN 8 (7-17) mg/dL Creatinine 0.67 (0.52-1.04) mg/dL Estimated GFR > 60.0 (>60) mL/min BUN/Creatinine Ratio 11.9 (6-22) Glucose 119 H (70-100) mg/dL Calcium 9.5 (8.4-10.2) mg/dL Total Bilirubin 0.6 (0.2-1.3) mg/dL AST 27 (14-36) IU/L ALT 20 (<35) IU/L Alkaline Phosphatase 171 H (38-126) U/L Troponin I < 0.012 (0.01-0.034) ng/mL Total Protein 8.1 (6.3-8.2) g/dL Albumin 4.5 (3.5-5.0) g/dL Globulin 3.6 (1.7-4.1) g/dL Albumin/Globulin Ratio 1.3 (1.0-2.8) Lipase 25 (23-300) U/L Influenza A (RT-PCR) Flu a negative (NEGATIVE) Influenza B (RT-PCR) Flu b negative (NEGATIVE) Imaging Data Chest x-ray: Attestation: I personally reviewed and interpreted this imaging study as follows: My Impression: On independent review of chest x-ray believe she is developing a right lower lobe infiltrate consistent with right basilar pneumonia Radiologist's Impression: IMPRESSION: No acute cardiopulmonary disease. Dictated by: Medina Yuen M.D. on 08/17/2019 at 18:30 MDM Narrative Medical decision making narrative: 38-year-old woman with a history of asthma increasing dyspnea and tachypnea. Clinical exam consistent with a developing right lower lobe pneumonia. She had a similar presentation about a year ago. There is minimal wheeze and she has not responded to nebulizers at home. Blood pressure is significantly elevated and she notes that this has not previously been an issue for her. Oxygen saturations are in the upper 90s on room air. She is able to eat and drink. White blood cell count is not significantly elevated and there are no additional signs or symptoms of sepsis at this point. Negative for influenza a and B. Covid19 currently pending. No evidence of PE or acute coronary syndrome. Believe that she has a community-acquired right lower lobe pneumonia setting of asthma. Will begin a course of antibiotic treatment with ceftriaxone and azithromycin is on his sats remain in the upper 90s and she is able to eat and drink she will be safe for home discharge with steroids antibiotics and anticipated follow-up with her primary care physician Discharge Plan Departure Patient Disposition: Home Clinical Impression: Pneumonia Qualifiers: Pneumonia type: due to unspecified organism Laterality: right Lung location: lower lobe of lung Qualified Code(s): J18.9 - Pneumonia, unspecified organism Acute asthma exacerbation Qualifiers: Asthma severity: moderate Asthma persistence: persistent Qualified Code(s): J45.41 - Moderate persistent asthma with (acute) exacerbation Hypertension Qualifiers: Hypertension type: essential hypertension Qualified Code(s): I10 - Essential (primary) hypertension Discharge Date/Time: 08/17/19 21:04 Instructions: DI for Pneumonia -- Adult Activity Restrictions/Additional Instructions: Thank you for coming in today I believe your developing a right lower lobe pneumonia which is why your inhalers are not as effective his you would have hoped. Please do continue with your routine inhalers and nebulizers. In the emergency department you that your 1st dose of antibiotics but will need to have an additional 4 days of azithromycin. You have been tested for the Covid19 virus. You will be called with results. Recommendations are to continue social isolation, masking and careful hand hygiene until results are back. Your blood pressure was quite high through your ER visit today. Please review your blood pressures with your primary care doctor. CDC Guidelines for home isolation: - Stay away from others - Limit contact with pets and animals: If you must care for a pet, wash your hands before and after interacting with them - Wear a mask if you are sick - Cover your mouth and nose with a tissue when you cough or sneeze. Dispose of tissues in a lined trash can and wash your hands immediately with soap and water for at least 20 seconds. If soap and water are not available, clean hands with alcohol-based hand jigger machine operator that contains at least 60% alcohol. - Clean your hands often with soap and water for at least 20 seconds - Avoid touching your eyes, nose and mouth with unwashed hands - Do not share dishes, drinking glasses, cups, eating utensils, towels, or bedding with other people in your home. After using these items, wash them thoroughly with soap and water or put in the quality control manager. - Clean high-touch surfaces in your isolation area (?sick room? and bathroom) every day; let a caregiver clean and disinfect high-touch surfaces in other areas of the home. Clean the area or item with soap and water or another detergent if it is dirty. Then, use a household disinfectant. Seek medical attention, but call first: - Seek medical care right away if your illness is worsening (for example, if you have difficulty breathing). - Call your doctor before going in: Before going to the doctor?s office or emergency room, call ahead and tell them your symptoms. They will tell you what to do. - If possible, put on a facemask before you enter the building. If you can?t put on a facemask, try to keep a safe distance from other people (at least 6 feet away). This will help protect the people in the office or waiting room. - Follow care instructions from your healthcare provider and local health department: Your local health authorities will give instructions on checking your symptoms and reporting information. Emergency warning signs for COVID-19: - Difficulty breathing or shortness of breath - Persistent pain or pressure in the chest - New confusion or inability to arouse - Bluish lips or face Prescriptions: New azithromycin 250 mg tablet 250 mg PO DAILY 4 Days RF: 0 prednisone 20 mg tablet 20 mg PO DAILY Qty: 5 RF: 0 No Action amitriptyline 75 mg tablet 225 mg PO BEDTIME Qty: 120 RF: 0 albuterol sulfate 2.5 mg /3 mL (0.083 %) solution for nebulization 2.5 mg INHALATION Q4-6H PRN (Reason: bronchospasm) Qty: 90 RF: 0 pregabalin 200 mg capsule 200 mg PO BID Qty: 60 RF: 1 Ventolin HFA 90 mcg/actuation HFA aerosol inhaler 2 puff INHALATION Q4HP PRN (Reason: shortness of breath or wheezing) Qty: 1 RF: 5 duloxetine 60 mg capsule,delayed release(DR/EC) 60 mg PO DAILY Qty: 30 RF: 2 duloxetine 30 mg capsule,delayed release(DR/EC) 30 mg PO DAILY Qty: 30 RF: 2 methylphenidate HCl 10 mg tablet 15 mg PO BID Qty: 90 RF: 0 oxycodone-acetaminophen 5-325 mg tablet 1 tab PO Q6H PRN (Reason: pain) Qty: 120 RF: 0 (DME) inhalational spacing device [Timmy A[employer]ol [place] Enhancer] spacer See Dose Instructions .ROUTE .MEDSUPPLY Qty: 1 RF: 0 levothyroxine 112 mcg tablet 112 mcg PO DAILY Qty: 90 RF: 1 meloxicam 15 mg tablet 15 mg PO DAILY RF: 0 zolpidem 10 mg tablet 10 mg PO BEDTIME PRN (Reason: insomnia) Qty: 30 RF: 3 ipratropium-albuterol 0.5 mg-3 mg(2.5 mg base)/3 mL solution for nebulization 3 ml INHALATION Q4H PRN (Reason: shortness of breath or wheezing) Qty: 180 RF: 0 Referrals: Rebeca Meyer DO [Primary Care Provider] -
[2019-08-17 18:46] LABS: Troponin I < 0.012 ng/mL (0.01-0.034)
[2019-08-17 18:53] LABS: Influenza A - CEPHEID Flu A NEGATIVE (NEGATIVE); Influenza B - CEPHEID Flu B NEGATIVE (NEGATIVE)
[2019-08-17 18:56] VITALS: PULSE 95; O2SAT 96
[2019-08-17] MEDS: SODIUM CHLORIDE 0.9% 1,000 ML 1000 ML IV (18:58)
[2019-08-17] MEDS: CEFTRIAXONE 2 GM/50 ML FROZ.PIGGY IV (18:58)
[2019-08-17] MEDS: methylPREDNISolone 125 MG/2 ML VIAL IV (18:58)
[2019-08-17] MEDS: AZITHROMYCIN 500 MG in DEXTROSE 5% IN WATER 250 ML IV (19:32)
[2019-08-17 20:08] VITALS: BP 167/88; PULSE 87; RESP 18; O2SAT 98
[2019-08-19 04:07] LABS: COVID19 Sendout Not Detected (Not Detected)
== END 2019-08-17 21:04 | disposition home or self-care (01) ==
PROVIDERS: Emergency Provider Emergency Medicine; Family Provider Family Medicine; PCP Family Medicine
DX: J18.9 Pneumonia, unspecified organism (principal); J45.41 Moderate persistent asthma with (acute) exacerbation; I10 Essential (primary) hypertension
CPT/HCPCS: 71045; 80053; 83690; 84484; 85025; 87502; 87635; 93005; 94640; 96365; 96367; 96375; 99283; 99284; J0696; J2930

== ENCOUNTER 2019-10-03 12:12 | Emergency (ER) | payer OTHER, MEDICAID, SELFPAY ==
[2018-09-22 12:32] VITALS: BMI 46.3
[2019-10-03] VITALS (8 sets, daily range): BP systolic 95–166; BP diastolic 45–74; PULSE 107–112; RESP 22–30; TEMP 36.4; O2SAT 85–95
--- NOTE | 2019-10-03 | DI.CT.S_ITS ---
PROCEDURE: CT CERVICAL SPINE WO CON INDICATIONS: FALL, INURY TECHNIQUE: Noncontrast 3 mm thick sections acquired from the skull base to the T4 level. Sagittal and coronal reformats were then constructed. For radiation dose reduction, the following was used: automated exposure control, adjustment of mA and/or kV according to patient size. COMPARISON: None. FINDINGS: Image quality: Slightly degraded secondary to patient body habitus.. Bones: No fractures or dislocations. Visualized superior ribs are intact. Soft tissues: Prevertebral soft tissues are normal in thickness. No paravertebral hematomas. No apical pneumothoraces. IMPRESSION: 1. No CT evidence of acute cervical spine injury. Dictated by: Agnieszka Landry M.D. on 10/03/2019 at 13:39 Approved by: Agnieszka Landry M.D. on 10/03/2019 at 13:43
--- NOTE | 2019-10-03 | DI.CT.S_ITS ---
PROCEDURE: CT CHEST ABD PEL W CON INDICATIONS: FALL, INJURY TECHNIQUE: After the administration of oral and intravenous contrast, 5 mm thick sections acquired from the lung apices to the symphysis. 5 mm coronal and sagittal reformats were performed, with additional 7 mm coronal MIP reformats through the lungs. For radiation dose reduction, the following was used: automated exposure control, adjustment of mA and/or kV according to patient size. COMPARISON: [facility], CT, CT ABDOMEN PELVIS WITH CONTRAST, 10/29/2018, 19:04. FINDINGS: Image quality: Excellent. CHEST: Lungs and pleura: Peribronchial thickening and linear alveolar opacities involving the right suprahilar and right lateral aspects of the upper lobe and right middle lobe. There is peribronchial thickening in the right lower lobe with mosaic pattern of minor groundglass opacity and a small peripheral consolidations laterally. In the left lung, minor groundglass opacity is seen in the left lateral costophrenic sulcus. No pleural effusions. Right perihilar airways are slightly narrowed but patent. Trachea is normal. No pneumothorax. Mediastinum: Heart size is normal. No pericardial effusion. Numerous nonenlarged mediastinal and right hilar lymph nodes. Thoracic aorta and central pulmonary arteries are normal in size. Esophagus is normal in caliber. No hiatal hernia. Chest wall: No axillary or supraclavicular adenopathy by size criteria. Thyroid gland is normal. ABDOMEN: Solid organs: Liver is enlarged and mildly hypointense. No lacerations or perihepatic fluid visible. The spleen is enlarged measuring 14.6 cm in length. The no perisplenic fluid. Gallbladder is normal. Biliary system is non dilated. Pancreas enhances normally. No adrenal nodules. Kidneys demonstrate normal size and enhancement, without hydronephrosis. Peritoneum and bowel: Increased osseous solid stool present in the proximal colon. There is mild colonic wall thickening in the mid ascending colon with questionable surrounding inflammatory changes. No diverticula. Diverticulosis present in the descending and sigmoid colon. The appendix was not visible.. No free fluid or air. Nodes and vessels: No retroperitoneal or mesenteric adenopathy by size criteria. Aorta and inferior vena cava are normal in size. Miscellaneous: No ventral hernias. PELVIS: Genitourinary: Bladder wall thickness is normal. The urinary bladder is diffusely distended. The uterus is surgically absent. There is a peripherally enhancing cyst measuring 4.1 cm on the right ovary. 3.5 cm left ovarian cyst. Miscellaneous: No inguinal hernias or adenopathy. Bones: No fractures. Asymmetric sclerosis throughout the left iliac wing, similar compared to the prior study but of uncertain etiology. No vertebral body compression fractures. IMPRESSION: 1. No evidence of trauma to the chest, abdomen, or pelvis. 2. Bilateral ovarian cysts. 3. Acute appearing bronchitis and peripheral strandy opacity in the right upper and middle lobe. Consider infectious or inflammatory etiologies. Contusion is not excluded, but there are no overlying rib fractures. There is reactive adenopathy. 4. Hepatosplenomegaly and mild hepatic steatosis. 5. Mild wall thickening of the mid ascending colon suggesting mild colitis. Correlate clinically. 6. Bilateral ovarian cysts. Dictated by: Agnieszka Landry M.D. on 10/03/2019 at 13:51 Approved by: Agnieszka Landry M.D. on 10/03/2019 at 14:04
--- NOTE | 2019-10-03 12:22 | DI.CT.S_ITS ---
PROCEDURE: CT HEAD/BRAIN WO CON INDICATIONS: multiple falls, head injury, right side symptoms TECHNIQUE: Noncontrast 4.5 mm thick angled axial sections acquired from the foramen magnum to the vertex, with coronal and sagittal reformats. For radiation dose reduction, the following was used: automated exposure control, adjustment of mA and/or kV according to patient size. COMPARISON: [facility], CT, HEAD WITHOUT CONTRAST, 08/14/2016, 0:16. FINDINGS: Image quality: Excellent. CSF spaces: Basal cisterns are patent. No extra-axial fluid collections. Ventricles are normal in size and shape. Brain: No midline shift. No intracranial masses or hemorrhage. Steiner-white matter interface is normal. Skull and face: Calvarium and visualized facial bones are intact, without suspicious lesions. Sinuses: Visualized sinuses and mastoids are clear. IMPRESSION: 1. No CT evidence of acute intracranial process. 2. No visible calvarial fracture. Dictated by: Agnieszka Landry M.D. on 10/03/2019 at 13:37 Approved by: Agnieszka Landry M.D. on 10/03/2019 at 13:38
--- NOTE | 2019-10-03 12:22 | DI.CT.S_ITS ---
PROCEDURE: CT FACIAL BONES WO CON INDICATIONS: fall, multiple injuries TECHNIQUE: Noncontrast 2.5 mm thick axial images acquired from the mandible through the frontal sinuses, with coronal and sagittal reformatting. For radiation dose reduction, the following was used: automated exposure control, adjustment of mA and/or kV according to patient size. COMPARISON: None. FINDINGS: Image quality: Excellent. Bones and teeth: Orbital johnson are intact. Sinus johnson show no fracture or deformity. Nasal bones and septum are intact. Visualized portions of the mandible demonstrate no fractures or subluxation. Zygomatic arches are intact. Pterygoid plates are intact. Visualized portions of the skull base and auditory canals are intact. Sinuses: Surgical changes of bilateral maxillary sinus antrostomies. There is slight mucosal thickening in the ethmoid air cells. Paranasal sinuses are otherwise aerated, without fluid levels, mucosal thickening, or mucoceles. Mastoid air cells are aerated. Soft tissues: No edema, masses, or fluid collections. No enlarged lymph nodes. No soft tissue lacerations or debris. Vascular: Visualized vascular structures appear normal in the absence of contrast. Bony vascular foramina and canals are intact. IMPRESSION: 1. No facial bone fractures. 2. Post surgical changes in the bilateral maxillary sinuses. Dictated by: Agnieszka Landry M.D. on 10/03/2019 at 13:33 Approved by: Agnieszka Landry M.D. on 10/03/2019 at 13:36
--- NOTE | 2019-10-03 12:30 | ED.FALL ---
HPI - Fall General Chief Complaint: Fall Stated Complaint: Stroke Time Seen by Provider: 10/03/19 12:12 Source: patient and EMS Mode of arrival: EMS Limitations: no limitations History of Present Illness HPI Narrative: 38-year-old female nonsmoker with history of morbid obesity, fibromyalgia, asthma presents by EMS with a chief complaint of weakness, multiple falls, confusion and right-sided pain over the past day or 2. She had been staying at the [facility] in and had at least 2 falls, 1 of which she does not remember yesterday. She is unclear if she tripped, fell, passed out and is on the whole a terrible historian. Today, while her significant other was downstairs gambling she got to her phone to call for EMS evaluation and on their arrival found her blood pressure to be in the 80s in seemed rather postural. Patient pulse ox with good effort and good pleth is in the mid 80s. She denies any neck or back pain but admits to significant pain in right shoulder, elbow, wrist, hip and knee. She denies any chest pain and does not have any significant shortness of breath. She denies the use of blood thinners. She states that on occasion she drinks alcohol and uses marijuana but did not over the past few days. She was recently started on Seroquel and her dosing had recently been decreased as she was becoming a bit somnolent while on it. She denies any fever or chills. She has had no nausea, vomiting or diarrhea. She denies any other medication or dietary change MD complaint: fall Onset (ago): hour(s) Fall from: standing Fall witnessed: no Place fall occurred: other Loss of consciousness: yes Prolonged down time: unclear Symptoms prior to fall: other Context: other Location of injury: head, face and pelvis Location of injury - extremities: Right: shoulder, arm and elbow Related Data Previous Rx's Medication Instructions Recorded inhalational spacing device #1 each 02/05/18 ipratropium 0.5 mg-albuterol 3 mg 3 ml INHALATION Q4H PRN #180 ml 06/26/18 (2.5 mg base)/3 mL nebulization soln amitriptyline 75 mg tablet 225 mg PO BEDTIME #120 tab 01/06/19 albuterol sulfate 2.5 mg INHALATION Q4-6H PRN #90 ml 06/02/19 zolpidem 10 mg tablet 10 mg PO BEDTIME PRN #30 tab 07/02/19 albuterol sulfate 90 mcg/actuation 2 puff INHALATION Q4HP PRN #1 each 07/30/19 aerosol inhaler duloxetine 60 mg capsule,delayed 60 mg PO DAILY #30 cap 07/30/19 release pregabalin 200 mg capsule 200 mg PO BID #60 cap 08/30/19 bupropion HCl 150 mg 24 hr tablet, 150 mg PO BID #60 tab 10/01/19 extended release levothyroxine 112 mcg tablet 112 mcg PO DAILY #90 tab 10/01/19 oxycodone-acetaminophen 5 mg-325 1 tab PO Q6H PRN #120 tab 10/01/19 mg tablet quetiapine 25 mg tablet 75 mg PO BEDTIME #90 tab 10/01/19 Allergies Allergy/AdvReac Type Severity Reaction Status Date / Time Penicillins [PENICILLINS] Allergy Unknown Verified 10/01/19 16:03 fluconazole [From DIFLUCAN] AdvReac Intermediate vomiting Verified 10/01/19 16:03 and abd pain codeine [CODEINE] AdvReac Mild NAUSEA Verified 10/01/19 16:03 Review of Systems Constitutional Constitutional: Reports body ache(s), Denies chills, Denies fatigue, Denies fever(s), Reports frequent falls, Denies lethargy and Reports weakness Eyes Eyes: Denies change in vision, Denies eye discharge, Denies irritation and Denies loss of vision ENT Ears, Nose, Mouth, and Throat: Denies change in voice, Denies dizziness, Denies neck pain, Denies sore throat and Denies throat swelling Cardiovascular Cardiovascular: Denies chest pain, Denies irregular heart rhythm, Denies lightheadedness, Denies palpitations, Denies dyspnea, Denies dyspnea on exertion and Denies orthopnea Respiratory Respiratory: Denies cough, Denies dyspnea, Denies dyspnea on exertion and Denies wheezing Gastrointestinal Gastrointestinal: Denies abdominal pain, Denies change in bowel habits, Denies diarrhea, Denies nausea and Denies vomiting Genitourinary Genitourinary: Denies hematuria, Denies flank pain, Denies urinary incontinence and Denies urinary urgency Musculoskeletal Musculoskeletal: Denies back pain, Reports joint swelling, Reports limited range of motion, Denies muscle weakness, Denies neck pain, Denies numbness and Denies tingling Integumentary/Breasts Skin/Breast: Denies pruritus, Denies erythema, Denies rash and Denies wounds Neurologic Neurologic: Denies behavioral changes, Denies confusion, Denies dizziness, Reports frequent falls, Denies loss of vision, Denies numbness, Denies tingling and Reports weakness Psychiatric Psychiatric: Denies anxiety, Denies behavioral changes, Denies confusion, Denies depression, Denies homicidal ideation and Denies suicidal ideation Endocrine Endocrine: Denies fatigue, Denies flushing and Denies palpitations Hematologic/Lymphatic Hematologic/Lymphatic: Denies easy bruising Allergic/Immunologic Allergic/Immunologic: Denies urticaria, Denies throat swelling and Denies wheezing Patient History Medical History Anxiety (Chronic) Asthma (Chronic) Depression (Chronic) Diverticular disease (Chronic ~2015) Fibromyalgia (Chronic ~05/2017) Gestational diabetes mellitus (GDM) (Inactive 10/27/14) History of PCR DNA positive for HSV1 (Inactive ~2014) Hypothyroidism (Chronic ~2008) Irritable bowel syndrome (Chronic) Migraines (Chronic) Rheumatoid arthritis (Chronic) Surgical History Status post delivery (12/30/14) Status post laparoscopic supracervical hysterectomy (10/23/15) Status post laparoscopy (01/19/16) Status post surgery (07/07/12) Status post tubal ligation (12/30/14) Family History Grandmother Stroke Grandfather Heart disease Cancer Father Hypertension Social History household members: spouse and children Smoking Status: Current some day smoker Smoking Status: Current some day smoker alcohol intake frequency: a few times a week Substance Use Type: marijuana Exam Narrative Exam Narrative: GENERAL: [38] year old patient appears stated age. In obvious distress, confused about story, clearly in pain, morbid obesity HEAD: Swelling to right side of face, largely upper / lower lids, no pain to palpation. No bleeding or hematomas EYES: Pupils equal round and reactive. Extraocular motions intact. No scleral icterus. No injection or drainage. ENT: Nose without bleeding, purulent drainage. Dry mucous membranes, dried blood on lips. Throat without erythema, tonsillar hypertrophy or exudate. Airway patent. NECK: Trachea midline. Non tender CARDIOVASCULAR: Regular rate and rhythm without murmurs, gallops, or rubs. RESPIRATORY: Clear to auscultation. Breath sounds equal bilaterally. No wheezes, rales, or rhonchi. GASTROINTESTINAL: Abdomen soft, non-tender, nondistended. EXTREMITIES: Right shoulder, elbow, wrist, hip, knee all tender to palpation. No obvious deformities or external manifestation of injury. Closed, N/V intact BACK: Nontender without deformity or crepitance. No flank tenderness. NEURO: AOx3. Anxious SKIN: No rash or erythema of visible areas Initial Vital Signs Initial Vital Signs: Vital Signs Temperature 97.5 F L 10/03/19 12:23 Pulse Rate 107 H 10/03/19 12:23 Respiratory Rate 26 H 10/03/19 12:23 Blood Pressure 95/45 L 10/03/19 12:23 Pulse Oximetry 85 L 10/03/19 12:23 Course Course Course Narrative: Patient has multiple nonischemic EKGs and denies any chest pain or ongoing shortness of breath. Given her slight increase in troponin in the setting of rhabdomyolysis and acute kidney injury the patient is best served a facility with in-house Cardiology and access to Nephrology. I have discussed this case with our hospitalist to sugars opinion. Furthermore, I have discussed this case with on-call Cardiology at [facility] whom states that in the setting of a lack of more classic ischemic findings, lack of ischemic changes on EKG that this troponin is hard to interpret but will certainly require further evaluation. There is no recommendation for specific treatment of this troponin such as aspirin, heparin or other. Hospitalist at [facility] is happy to accept. Orders Ordered: ED Orders 10/03/19 10:05 Arterial Blood Gas Stat 10/03/19 12:22 CT facial bones wo con Stat CT head/brain wo con Stat EKG-12 Lead Stat 10/03/19 12:35 Complete Blood Count AUTO DIFF Stat Comprehensive Metabolic Panel Stat Lactate (Lactic Acid) Stat Partial Thromboplastin Time Stat Procalcitonin Stat Prothrombin Time INR Stat Troponin & CK Cardiac Panel Stat 10/03/19 13:30 Urine Culture Stat Urine Drug Screen, Rapid Stat Urine Microscopic Stat 10/03/19 13:41 Blood Culture Stat 10/03/19 13:44 XR elbow RT min 3V Stat XR knee RT 3V Stat XR shoulder RT min 2V Stat 10/03/19 14:55 Basic Metabolic Panel Stat Troponin & CK Cardiac Panel Stat 10/03/19 15:35 EKG-12 Lead Stat Discontinued Medications Levofloxacin (Levaquin) 750 mg in 150 mls @ 100 mls/hr IV NOW ONE Stop: 10/03/19 14:27 Last Infusion: 10/03/19 15:25 Dose: 0 mls/hr Documented by: Admin: 10/03/19 13:43 Dose: 100 mls/hr Documented by: BECCA Sodium Chloride (Normal Saline 0.9%) 5,700 mls @ 1,900 mls/hr 30 ml/kg infuse over 3 hr (5700 ml) IV NOW ONE Stop: 10/03/19 16:25 Last Admin: 10/03/19 13:44 Dose: 1,900 mls/hr Documented by: BECCA Vital Signs Vital signs: Vital Signs - 8 hr 10/03/19 12:23 10/03/19 13:00 10/03/19 13:45 Temperature 97.5 F L Pulse Rate 107 H 110 H 107 H Respiratory Rate 26 H 30 H 28 H Blood Pressure 95/45 L Blood Pressure [Left Ankle] Blood Pressure [Left Arm] 124/60 107/57 L Pulse Oximetry 85 L 94 92 10/03/19 14:15 10/03/19 15:00 10/03/19 16:00 Temperature Pulse Rate 108 H 108 H 109 H Respiratory Rate 24 24 26 H Blood Pressure Blood Pressure [Left Ankle] 138/64 164/72 H Blood Pressure [Left Arm] 121/68 Pulse Oximetry 93 92 93 10/03/19 16:30 10/03/19 17:14 Temperature Pulse Rate 112 H 112 H Respiratory Rate 22 23 Blood Pressure Blood Pressure [Left Ankle] 166/74 H 157/69 H Blood Pressure [Left Arm] Pulse Oximetry 93 95 MDM - Fall Lab Data Result diagrams: 10/03/19 12:35 10/03/19 14:55 Labs: Lab Results 10/03/19 10/03/19 10/03/19 Range/Units 10:05 12:35 12:35 WBC 20.3 H (4.5-11.0) X10^3/uL RBC 4.69 (4.0-5.2) X10^6/uL Hgb 13.6 (12.0-16.0) g/dL Hct 41.4 (36-46) % MCV 88.3 (80-100) fL MCH 29.0 (26-34) PG MCHC 32.9 (30-36) % RDW 16.3 H (11.6-14.8) % Plt Count 266 (150-400) X10^3/uL Neut % (Auto) 88.6 H (50-75) % Lymph % (Auto) 4.2 L (25-40) % Moffat % (Auto) 3.7 (3-14) % Eos % (Auto) 3.1 (2-4) % Baso % (Auto) 0.4 (0-2) % Neut # (Auto) 25052 H (2242-2666) /uL Lymph # (Auto) 900 L (9490-8995) /uL Moffat # (Auto) 800 (0-900) /uL Eos # (Auto) 600 H (0-450) /uL Baso # (Auto) 100 (0-100) /uL PT (10.1-12.7) SECONDS INR (0.9-1.3) APTT (26.4-36.2) SECONDS ABG pH 7.29 L* (7.35-7.45) ABG pCO2 57.4 H (35-45) mmHg ABG pO2 53 L (80-100) mmHg ABG HCO3 27 H (22-26) mmol/L ABG Total CO2 29 (21-31) mmol/L ABG O2 Saturation 82 L* (95-100) % ABG Base Excess 1.0 (-2-2) mmol/L FiO2 28 Sodium (137-145) mmol/L Potassium (3.4-5.1) mmol/L Chloride (98-107) mmol/L Carbon Dioxide (22-32) mmol/L BUN (7-17) mg/dL Creatinine (0.52-1.04) mg/dL Estimated GFR (>60) mL/min BUN/Creatinine Ratio (6-22) Glucose (70-100) mg/dL Lactate (0.7-2.1) mmol/L Calcium (8.4-10.2) mg/dL Total Bilirubin (0.2-1.3) mg/dL AST (14-36) IU/L ALT (<35) IU/L Alkaline Phosphatase (38-126) U/L Total Creatine Kinase (30-135) U/L CK-MB (CK-2) (<2.37) ng/mL CK-MB (CK-2) Rel Index (1.5-5.0) % Troponin I (0.01-0.034) ng/mL Total Protein (6.3-8.2) g/dL Albumin (3.5-5.0) g/dL Globulin (1.7-4.1) g/dL Albumin/Globulin Ratio (1.0-2.8) Procalcitonin 0.13 (<0.5) ng/mL Urine RBC (0-5/HPF) Urine WBC (0-5/HPF) Ur Squamous Epith Cells (0-5/HPF) Ur Transition Epith Cell (0-5/HPF) Amorphous Sediment Urine Bacteria (None) Hyaline Casts (None) WBC Casts (None) Urine Mucus (Negative) Ur Culture Indicated? U Opiates 300ng/mL cut (Negative) Ur Oxycodone Screen (Negative) Urine Methadone Screen (Negative) Ur Barbiturates Screen (Negative) U Tricyclic Antidepress (Negative) Ur Phencyclidine Scrn (Negative) Ur Amphetamines Screen (Negative) U Methamphetamines Scrn (Negative) Ur MDMA Scrn (Ecstasy) (Negative) U Benzodiazepines Scrn (Negative) Urine Cocaine Screen (Negative) U Marijuana (THC) Screen (Negative) COVID-19 PCR (Negative) 10/03/19 10/03/19 10/03/19 Range/Units 12:35 12:35 12:35 WBC (4.5-11.0) X10^3/uL RBC (4.0-5.2) X10^6/uL Hgb (12.0-16.0) g/dL Hct (36-46) % MCV (80-100) fL MCH (26-34) PG MCHC (30-36) % RDW (11.6-14.8) % Plt Count (150-400) X10^3/uL Neut % (Auto) (50-75) % Lymph % (Auto) (25-40) % Moffat % (Auto) (3-14) % Eos % (Auto) (2-4) % Baso % (Auto) (0-2) % Neut # (Auto) (5161-9235) /uL Lymph # (Auto) (6589-4279) /uL Moffat # (Auto) (0-900) /uL Eos # (Auto) (0-450) /uL Baso # (Auto) (0-100) /uL PT 10.6 (10.1-12.7) SECONDS INR 0.9 (0.9-1.3) APTT 25 L D (26.4-36.2) SECONDS ABG pH (7.35-7.45) ABG pCO2 (35-45) mmHg ABG pO2 (80-100) mmHg ABG HCO3 (22-26) mmol/L ABG Total CO2 (21-31) mmol/L ABG O2 Saturation (95-100) % ABG Base Excess (-2-2) mmol/L FiO2 Sodium 139 (137-145) mmol/L Potassium 5.2 H (3.4-5.1) mmol/L Chloride 103 (98-107) mmol/L Carbon Dioxide 27 (22-32) mmol/L BUN 21 H (7-17) mg/dL Creatinine 1.57 H (0.52-1.04) mg/dL Estimated GFR 36.5 L (>60) mL/min BUN/Creatinine Ratio 13.4 (6-22) Glucose 137 H (70-100) mg/dL Lactate 1.5 (0.7-2.1) mmol/L Calcium 8.9 (8.4-10.2) mg/dL Total Bilirubin 0.8 (0.2-1.3) mg/dL AST 699 H (14-36) IU/L ALT 139 H (<35) IU/L Alkaline Phosphatase 160 H (38-126) U/L Total Creatine Kinase (30-135) U/L CK-MB (CK-2) (<2.37) ng/mL CK-MB (CK-2) Rel Index (1.5-5.0) % Troponin I (0.01-0.034) ng/mL Total Protein 7.9 (6.3-8.2) g/dL Albumin 4.4 (3.5-5.0) g/dL Globulin 3.5 (1.7-4.1) g/dL Albumin/Globulin Ratio 1.3 (1.0-2.8) Procalcitonin (<0.5) ng/mL Urine RBC (0-5/HPF) Urine WBC (0-5/HPF) Ur Squamous Epith Cells (0-5/HPF) Ur Transition Epith Cell (0-5/HPF) Amorphous Sediment Urine Bacteria (None) Hyaline Casts (None) WBC Casts (None) Urine Mucus (Negative) Ur Culture Indicated? U Opiates 300ng/mL cut (Negative) Ur Oxycodone Screen (Negative) Urine Methadone Screen (Negative) Ur Barbiturates Screen (Negative) U Tricyclic Antidepress (Negative) Ur Phencyclidine Scrn (Negative) Ur Amphetamines Screen (Negative) U Methamphetamines Scrn (Negative) Ur MDMA Scrn (Ecstasy) (Negative) U Benzodiazepines Scrn (Negative) Urine Cocaine Screen (Negative) U Marijuana (THC) Screen (Negative) COVID-19 PCR (Negative) 10/03/19 10/03/19 10/03/19 Range/Units 12:35 13:30 13:30 WBC (4.5-11.0) X10^3/uL RBC (4.0-5.2) X10^6/uL Hgb (12.0-16.0) g/dL Hct (36-46) % MCV (80-100) fL MCH (26-34) PG MCHC (30-36) % RDW (11.6-14.8) % Plt Count (150-400) X10^3/uL Neut % (Auto) (50-75) % Lymph % (Auto) (25-40) % Moffat % (Auto) (3-14) % Eos % (Auto) (2-4) % Baso % (Auto) (0-2) % Neut # (Auto) (3067-7111) /uL Lymph # (Auto) (9686-2878) /uL Moffat # (Auto) (0-900) /uL Eos # (Auto) (0-450) /uL Baso # (Auto) (0-100) /uL PT (10.1-12.7) SECONDS INR (0.9-1.3) APTT (26.4-36.2) SECONDS ABG pH (7.35-7.45) ABG pCO2 (35-45) mmHg ABG pO2 (80-100) mmHg ABG HCO3 (22-26) mmol/L ABG Total CO2 (21-31) mmol/L ABG O2 Saturation (95-100) % ABG Base Excess (-2-2) mmol/L FiO2 Sodium (137-145) mmol/L Potassium (3.4-5.1) mmol/L Chloride (98-107) mmol/L Carbon Dioxide (22-32) mmol/L BUN (7-17) mg/dL Creatinine (0.52-1.04) mg/dL Estimated GFR (>60) mL/min BUN/Creatinine Ratio (6-22) Glucose (70-100) mg/dL Lactate (0.7-2.1) mmol/L Calcium (8.4-10.2) mg/dL Total Bilirubin (0.2-1.3) mg/dL AST (14-36) IU/L ALT (<35) IU/L Alkaline Phosphatase (38-126) U/L Total Creatine Kinase 24089 H (30-135) U/L CK-MB (CK-2) 262.00 H (<2.37) ng/mL CK-MB (CK-2) Rel Index 1.0 L (1.5-5.0) % Troponin I 0.096 H (0.01-0.034) ng/mL Total Protein (6.3-8.2) g/dL Albumin (3.5-5.0) g/dL Globulin (1.7-4.1) g/dL Albumin/Globulin Ratio (1.0-2.8) Procalcitonin (<0.5) ng/mL Urine RBC 5-10/hpf H (0-5/HPF) Urine WBC 5-10/hpf H (0-5/HPF) Ur Squamous Epith Cells 1-5 /hpf (0-5/HPF) Ur Transition Epith Cell 5-10/hpf H (0-5/HPF) Amorphous Sediment 2+ Urine Bacteria Moderate (10-30) H (None) Hyaline Casts 10-30/lpf (None) WBC Casts 5-10/lpf H (None) Urine Mucus 1+ H (Negative) Ur Culture Indicated? Specimen cultured U Opiates 300ng/mL cut Positive H (Negative) Ur Oxycodone Screen Positive H (Negative) Urine Methadone Screen Negative (Negative) Ur Barbiturates Screen Negative (Negative) U Tricyclic Antidepress Positive H (Negative) Ur Phencyclidine Scrn Negative (Negative) Ur Amphetamines Screen Negative (Negative) U Methamphetamines Scrn Negative (Negative) Ur MDMA Scrn (Ecstasy) Negative (Negative) U Benzodiazepines Scrn Negative (Negative) Urine Cocaine Screen Negative (Negative) U Marijuana (THC) Screen Negative (Negative) COVID-19 PCR (Negative) 10/03/19 10/03/19 10/03/19 Range/Units 14:28 14:55 14:55 WBC (4.5-11.0) X10^3/uL RBC (4.0-5.2) X10^6/uL Hgb (12.0-16.0) g/dL Hct (36-46) % MCV (80-100) fL MCH (26-34) PG MCHC (30-36) % RDW (11.6-14.8) % Plt Count (150-400) X10^3/uL Neut % (Auto) (50-75) % Lymph % (Auto) (25-40) % Moffat % (Auto) (3-14) % Eos % (Auto) (2-4) % Baso % (Auto) (0-2) % Neut # (Auto) (3515-5456) /uL Lymph # (Auto) (7992-1242) /uL Moffat # (Auto) (0-900) /uL Eos # (Auto) (0-450) /uL Baso # (Auto) (0-100) /uL PT (10.1-12.7) SECONDS INR (0.9-1.3) APTT (26.4-36.2) SECONDS ABG pH (7.35-7.45) ABG pCO2 (35-45) mmHg ABG pO2 (80-100) mmHg ABG HCO3 (22-26) mmol/L ABG Total CO2 (21-31) mmol/L ABG O2 Saturation (95-100) % ABG Base Excess (-2-2) mmol/L FiO2 Sodium 138 (137-145) mmol/L Potassium 5.4 H (3.4-5.1) mmol/L Chloride 104 (98-107) mmol/L Carbon Dioxide 27 (22-32) mmol/L BUN 19 H (7-17) mg/dL Creatinine 1.25 H (0.52-1.04) mg/dL Estimated GFR 47.5 L (>60) mL/min BUN/Creatinine Ratio 15.2 (6-22) Glucose 127 H (70-100) mg/dL Lactate (0.7-2.1) mmol/L Calcium 8.6 (8.4-10.2) mg/dL Total Bilirubin (0.2-1.3) mg/dL AST (14-36) IU/L ALT (<35) IU/L Alkaline Phosphatase (38-126) U/L Total Creatine Kinase 13698 H (30-135) U/L CK-MB (CK-2) 268.00 H (<2.37) ng/mL CK-MB (CK-2) Rel Index 0.9 L (1.5-5.0) % Troponin I 0.128 H* (0.01-0.034) ng/mL Total Protein (6.3-8.2) g/dL Albumin (3.5-5.0) g/dL Globulin (1.7-4.1) g/dL Albumin/Globulin Ratio (1.0-2.8) Procalcitonin (<0.5) ng/mL Urine RBC (0-5/HPF) Urine WBC (0-5/HPF) Ur Squamous Epith Cells (0-5/HPF) Ur Transition Epith Cell (0-5/HPF) Amorphous Sediment Urine Bacteria (None) Hyaline Casts (None) WBC Casts (None) Urine Mucus (Negative) Ur Culture Indicated? U Opiates 300ng/mL cut (Negative) Ur Oxycodone Screen (Negative) Urine Methadone Screen (Negative) Ur Barbiturates Screen (Negative) U Tricyclic Antidepress (Negative) Ur Phencyclidine Scrn (Negative) Ur Amphetamines Screen (Negative) U Methamphetamines Scrn (Negative) Ur MDMA Scrn (Ecstasy) (Negative) U Benzodiazepines Scrn (Negative) Urine Cocaine Screen (Negative) U Marijuana (THC) Screen (Negative) COVID-19 PCR Negative Cancelled (Negative) Point of Care Testing Glucose POC 134 Urine Dip Bedside Urine Glucose Negative Bedside Urine Bilirubin + 1 Bedside Urine Ketone - Negative Urine Specific [place] 1.025 Bedside Urine Occult Blood +++ Bedside Urine pH 5.5 Bedside Urine Protein ++ 100 Bedside Urine Urobilinogen - Negative Bedside Urine Nitrite - Negative Bedside Urine Leukocytes - Negative Esterase Imaging Data CT scan - head: Radiologist's Impression: Alina Pal 38 F [address] [address] [address] Scan Report Signed Patient: Alina Pal LMR#: [id number] : 1980Acct:[id number] Age/Sex: 38 / FDate of Service: 10/03/19 Loc: ED Accession Number: [id number] Procedure: CT head/brain wo con Ordering Provider: Nguyễn Valladares D.O. PROCEDURE: CT HEAD/BRAIN WO CON INDICATIONS: multiple falls, head injury, right side symptoms TECHNIQUE: Noncontrast 4.5 mm thick angled axial sections acquired from the foramen magnum to the vertex, with coronal and sagittal reformats. For radiation dose reduction, the following was used: automated exposure control, adjustment of mA and/or kV according to patient size. COMPARISON: [facility], CT, HEAD WITHOUT CONTRAST, 08/14/2016, 0:16. FINDINGS: Image quality: Excellent. CSF spaces: Basal cisterns are patent. No extra-axial fluid collections. Ventricles are normal in size and shape. Brain: No midline shift. No intracranial masses or hemorrhage. Steiner-white matter interface is normal. Skull and face: Calvarium and visualized facial bones are intact, without suspicious lesions. Sinuses: Visualized sinuses and mastoids are clear. IMPRESSION: 1. No CT evidence of acute intracranial process. 2. No visible calvarial fracture. Dictated by: Agnieszka Landry M.D. on 10/03/2019 at 13:37 Approved by: Agnieszka Landry M.D. on 10/03/2019 at 13:38 CT - cervical spine: Radiologist's Impression: [address] [address] [address] Scan Report Signed Patient: Alina Pal LMR#: [id number] : 1980Acct:[id number] Age/Sex: 38 / FDate of Service: 10/03/19 Loc: ED Accession Number: [id number] Procedure: CT cervical spine wo con Ordering Provider: Nguyễn Valladares D.O. PROCEDURE: CT CERVICAL SPINE WO CON INDICATIONS: FALL, INURY TECHNIQUE: Noncontrast 3 mm thick sections acquired from the skull base to the T4 level. Sagittal and coronal reformats were then constructed. For radiation dose reduction, the following was used: automated exposure control, adjustment of mA and/or kV according to patient size. COMPARISON: None. FINDINGS: Image quality: Slightly degraded secondary to patient body habitus.. Bones: No fractures or dislocations. Visualized superior ribs are intact. Soft tissues: Prevertebral soft tissues are normal in thickness. No paravertebral hematomas. No apical pneumothoraces. IMPRESSION: 1. No CT evidence of acute cervical spine injury. Dictated by: Agnieszka Landry M.D. on 10/03/2019 at 13:39 Approved by: Agnieszka Landry M.D. on 10/03/2019 at 13:43 CT Facial Bones: Radiologist's Impression: [facility] Diagn[facility] DATE TYPE STATUS AUTHOR Hx 10/03/19 12:22 Agnieszka Landry 10/03/19 12:22 Agnieszka Landry 10/03/19 00:00 10/03/19 00:00 Agnieszka Landry 08/17/19 18:05 Maryam Yuen 05/26/19 17:03 Romario Lee 04/15/19 15:32 Maryam Yuen 11/19/18 13:08 Romario Lee 10/27/18 19:07 Humza Brothers 10/23/18 18:00 Patrick Leroy 10/23/18 18:00 Patrick Leroy 08/12/18 14:56 Nitish Sexton 06/20/18 14:24 06/20/18 14:24 06/20/18 12:23 Agnieszka Landry 02/11/18 14:51 Nitish Sexton 01/15/18 15:17 Nancy Khan 12/31/17 20:46 Amish Deutsch 11/12/17 13:16 Nitish Sexton 10/29/17 17:34 Enzo Contreras 10/29/17 17:32 Enzo Contreras 10/28/17 10:00 RAZ 10/07/17 06:47 Humza Brothers 08/01/17 18:53 CT Angiogram Neck 08/01/17 18:53 CT Angiogram Head W/Contrast 08/01/17 17:30 CT Head WO 09/19/15 18:52 Alina Pal 38, F1980 REG ER, Main ED R02 190kg Fall Search Chart No Data to Display vomiting and abd pain NAUSEA ONSET ~04/2019 ~05/2017 ~2014 ~2003 ~200812/10/02 11/12/02 11/08/10 10/27/14 07/13/15 07/13/15 Today 13:00 Alina Pal 38 F 1980 [place] [address] CT Scan Report Signed Patient: Alina Pal LMR#: [id number] : 1980Acct:[id number] Age/Sex: 38 / FDate of Service: 10/03/19 Loc: ED Accession Number: [id number] Procedure: CT facial bones wo con Ordering Provider: Nguyễn Valladares D.O. PROCEDURE: CT FACIAL BONES WO CON INDICATIONS: fall, multiple injuries TECHNIQUE: Noncontrast 2.5 mm thick axial images acquired from the mandible through the frontal sinuses, with coronal and sagittal reformatting. For radiation dose reduction, the following was used: automated exposure control, adjustment of mA and/or kV according to patient size. COMPARISON: None. FINDINGS: Image quality: Excellent. Bones and teeth: Orbital johnson are intact. Sinus johnson show no fracture or deformity. Nasal bones and septum are intact. Visualized portions of the mandible demonstrate no fractures or subluxation. Zygomatic arches are intact. Pterygoid plates are intact. Visualized portions of the skull base and auditory canals are intact. Sinuses: Surgical changes of bilateral maxillary sinus antrostomies. There is slight mucosal thickening in the ethmoid air cells. Paranasal sinuses are otherwise aerated, without fluid levels, mucosal thickening, or mucoceles. Mastoid air cells are aerated. Soft tissues: No edema, masses, or fluid collections. No enlarged lymph nodes. No soft tissue lacerations or debris. Vascular: Visualized vascular structures appear normal in the absence of contrast. Bony vascular foramina and canals are intact. IMPRESSION: 1. No facial bone fractures. 2. Post surgical changes in the bilateral maxillary sinuses. Dictated by: Agnieszka Landry M.D. on 10/03/2019 at 13:33 Approved by: Agnieszka Landry M.D. on 10/03/2019 at 13:36 CT scan - chest: Radiologist's Impression: [address] [address] [address] Scan Report Signed Patient: Alina Pal LMR#: [id number] : 1980Acct:[id number] Age/Sex: 38 / FDate of Service: 10/03/19 Loc: ED Accession Number: [id number] Procedure: CT chest abd pel w con Ordering Provider: Nguyễn Valladares D.O. PROCEDURE: CT CHEST ABD PEL W CON INDICATIONS: FALL, INJURY TECHNIQUE: After the administration of oral and intravenous contrast, 5 mm thick sections acquired from the lung apices to the symphysis. 5 mm coronal and sagittal reformats were performed, with additional 7 mm coronal MIP reformats through the lungs. For radiation dose reduction, the following was used: automated exposure control, adjustment of mA and/or kV according to patient size. COMPARISON: [facility], CT, CT ABDOMEN PELVIS WITH CONTRAST, 10/29/2018, 19:04. FINDINGS: Image quality: Excellent. CHEST: Lungs and pleura: Peribronchial thickening and linear alveolar opacities involving the right suprahilar and right lateral aspects of the upper lobe and right middle lobe. There is peribronchial thickening in the right lower lobe with mosaic pattern of minor groundglass opacity and a small peripheral consolidations laterally. In the left lung, minor groundglass opacity is seen in the left lateral costophrenic sulcus. No pleural effusions. Right perihilar airways are slightly narrowed but patent. Trachea is normal. No pneumothorax. Mediastinum: Heart size is normal. No pericardial effusion. Numerous nonenlarged mediastinal and right hilar lymph nodes. Thoracic aorta and central pulmonary arteries are normal in size. Esophagus is normal in caliber. No hiatal hernia. Chest wall: No axillary or supraclavicular adenopathy by size criteria. Thyroid gland is normal. ABDOMEN: Solid organs: Liver is enlarged and mildly hypointense. No lacerations or perihepatic fluid visible. The spleen is enlarged measuring 14.6 cm in length. The no perisplenic fluid. Gallbladder is normal. Biliary system is non dilated. Pancreas enhances normally. No adrenal nodules. Kidneys demonstrate normal size and enhancement, without hydronephrosis. Peritoneum and bowel: Increased osseous solid stool present in the proximal colon. There is mild colonic wall thickening in the mid ascending colon with questionable surrounding inflammatory changes. No diverticula. Diverticulosis present in the descending and sigmoid colon. The appendix was not visible.. No free fluid or air. Nodes and vessels: No retroperitoneal or mesenteric adenopathy by size criteria. Aorta and inferior vena cava are normal in size. Miscellaneous: No ventral hernias. PELVIS: Genitourinary: Bladder wall thickness is normal. The urinary bladder is diffusely distended. The uterus is surgically absent. There is a peripherally enhancing cyst measuring 4.1 cm on the right ovary. 3.5 cm left ovarian cyst. Miscellaneous: No inguinal hernias or adenopathy. Bones: No fractures. Asymmetric sclerosis throughout the left iliac wing, similar compared to the prior study but of uncertain etiology. No vertebral body compression fractures. IMPRESSION: 1. No evidence of trauma to the chest, abdomen, or pelvis. 2. Bilateral ovarian cysts. 3. Acute appearing bronchitis and peripheral strandy opacity in the right upper and middle lobe. Consider infectious or inflammatory etiologies. Contusion is not excluded, but there are no overlying rib fractures. There is reactive adenopathy. 4. Hepatosplenomegaly and mild hepatic steatosis. 5. Mild wall thickening of the mid ascending colon suggesting mild colitis. Correlate clinically. 6. Bilateral ovarian cysts. Dictated by: Agnieszka Landry M.D. on 10/03/2019 at 13:51 Approved by: Agnieszka Landry M.D. on 10/03/2019 at 14:04 ECG Data Attestation: I personally reviewed and interpreted this ECG as follows: Interpretation: EKG is sinus tachycardia with normal rhythm and rate [108 ] and free of any signs of ischemia or ectopy. No ST segmental elevation or depression. No T wave inversions Critical Care Time Critical Care Time Critical Care Time: Yes Total Critical Care Time: 35 Attestation: The high probability of a clinically significant, sudden or life threatening deterioration of the [CV] system(s) required my full and direct attention, intervention and personal management. The aggregate critical care time was [35] minutes. This time is in addition to time spent performing reported procedures but includes the following: [X] Data Review and interpretation [X] Patient assessment and monitoring of vital signs [X] Documentation [X] Medication orders and management Discharge Plan Departure Patient Disposition: [facility] Clinical Impression: Hypoxia, Acute kidney injury, Rhabdomyolysis Prescriptions: No Action amitriptyline 75 mg tablet 225 mg PO BEDTIME Qty: 120 RF: 0 albuterol sulfate 2.5 mg /3 mL (0.083 %) solution for nebulization 2.5 mg INHALATION Q4-6H PRN (Reason: bronchospasm) Qty: 90 RF: 0 Ventolin HFA 90 mcg/actuation HFA aerosol inhaler 2 puff INHALATION Q4HP PRN (Reason: shortness of breath or wheezing) Qty: 1 RF: 5 duloxetine 60 mg capsule,delayed release(DR/EC) 60 mg PO DAILY Qty: 30 RF: 2 pregabalin 200 mg capsule 200 mg PO BID Qty: 60 RF: 1 (DME) inhalational spacing device [Timmy Aerosol [place] Enhancer] spacer See Dose Instructions .ROUTE .MEDSUPPLY Qty: 1 RF: 0 zolpidem 10 mg tablet 10 mg PO BEDTIME PRN (Reason: insomnia) Qty: 30 RF: 3 Hold Instructions: trial of seroquel ipratropium-albuterol 0.5 mg-3 mg(2.5 mg base)/3 mL solution for nebulization 3 ml INHALATION Q4H PRN (Reason: shortness of breath or wheezing) Qty: 180 RF: 0 bupropion HCl 150 mg tablet extended release 24 hr 150 mg PO BID Qty: 60 RF: 1 levothyroxine 112 mcg tablet 112 mcg PO DAILY Qty: 90 RF: 3 quetiapine 25 mg tablet 75 mg PO BEDTIME Qty: 90 RF: 0 oxycodone-acetaminophen 5-325 mg tablet 1 tab PO Q6H PRN (Reason: pain) Qty: 120 RF: 0 Referrals: Rebeca Meyer DO [Primary Care Provider] -
[2019-10-03 12:45] LABS: Add Manual Diff / Slide Review NO; Basophils Absolute Auto 100 /uL (0-100); Basophils Percent Auto 0.4 % (0-2); Eosinophils Absolute Auto 600 /uL (0-450); Eosinophils Percent Auto 3.1 % (2-4); Hematocrit 41.4 % (36-46); Hemoglobin 13.6 g/dL (12.0-16.0); Lymphocytes Absolute Auto 900 /uL (1100-4500); Lymphocytes Percent Auto 4.2 % (25-40); Mean Corpuscular HGB Conc 32.9 % (30-36); Mean Corpuscular Volume 88.3 fL (80-100); Monocytes Absolute Auto 800 /uL (0-900); Monocytes Percent Auto 3.7 % (3-14); Neutrophils Absolute Auto 18000 /uL (1500-7000); Neutrophils Percent Auto 88.6 % (50-75); Platelet Count 266 X10^3/uL (150-400); Red Blood Cell Count 4.69 X10^6/uL (4.0-5.2); Red Cell Distribution Width 16.3 % (11.6-14.8); White Blood Cell Count 20.3 X10^3/uL (4.5-11.0)
[2019-10-03 12:52] LABS: INR 0.9 (0.9-1.3); Prothrombin Time 10.6 SECONDS (10.1-12.7)
[2019-10-03 12:54] LABS: PTT Partial Thromboplastin Tim 25 SECONDS (26.4-36.2)
[2019-10-03 12:58] LABS: Alanine Aminotransferase 139 IU/L (<35); Albumin 4.4 g/dL (3.5-5.0); Albumin Globulin Ratio 1.3 (1.0-2.8); Alkaline Phosphatase 160 U/L (38-126); Aspartate Aminotransferase 699 IU/L (14-36); BUN Creatinine Ratio 13.4 (6-22); Bilirubin Total 0.8 mg/dL (0.2-1.3); Blood Urea Nitrogen 21 mg/dL (7-17); Calcium 8.9 mg/dL (8.4-10.2); Carbon Dioxide 27 mmol/L (22-32); Chloride 103 mmol/L (98-107); Estimated Glomerular Filt Rate 36.5 mL/min (>60); Globulin 3.5 g/dL (1.7-4.1); Glucose 137 mg/dL (70-100); Lactate (Lactic Acid) 1.5 mmol/L (0.7-2.1); Potassium 5.2 mmol/L (3.4-5.1); Sodium 139 mmol/L (137-145); Total Protein 7.9 g/dL (6.3-8.2)
[2019-10-03 13:05] LABS: HEMOLYSIS 51 (0-50)
[2019-10-03 13:09] LABS: Creatine Kinase 26545 U/L (30-135); Troponin I 0.096 ng/mL (0.01-0.034)
[2019-10-03 13:17] LABS: HCO3 ABG 27 mmol/L (22-26); PCO2 ABG 57.4 mmHg (35-45); PO2 ABG 53 mmHg (80-100); pH ABG 7.29 (7.35-7.45)
[2019-10-03 13:18] LABS: Fractionated Inspired Oxygen 28; Oxygen Saturation ABG 82 % (95-100); TCO2 ABG 29 mmol/L (21-31)
[2019-10-03 13:32] LABS: Procalcitonin 0.13 ng/mL (<0.5)
[2019-10-03] MEDS: levoFLOXacin 750 MG/150 ML PIGGYBACK 100 MG IV (13:43)
[2019-10-03] MEDS: SODIUM CHLORIDE 0.9% 1900 ML IV (13:44)
--- NOTE | 2019-10-03 13:44 | DI.RAD.S_ITS ---
PROCEDURE: XR KNEE RT 3V INDICATIONS: fall with pain TECHNIQUE: 3 views of the knee were acquired. COMPARISON: [facility], CR, XR KNEE LT 3V, 04/15/2019, 15:29. FINDINGS: Bones: No fractures or dislocations. No suspicious bony lesions. Soft tissues: No joint effusion. No suspicious soft tissue calcifications. IMPRESSION: Intact right knee. Dictated by: Agnieszka Landry M.D. on 10/03/2019 at 15:03 Approved by: Agnieszka Landry M.D. on 10/03/2019 at 15:03
--- NOTE | 2019-10-03 13:44 | DI.RAD.S_ITS ---
PROCEDURE: XR SHOULDER RT MIN 2V INDICATIONS: fall with pain TECHNIQUE: 3 views of the shoulder were acquired. COMPARISON: None. FINDINGS: Bones: No fractures or dislocations. No suspicious bony lesions. Visualized ribs appear intact. Soft tissues: No suspicious soft tissue calcifications. IMPRESSION: Intact right shoulder. Dictated by: Agnieszka Landry M.D. on 10/03/2019 at 15:04 Approved by: Agnieszka Landry M.D. on 10/03/2019 at 15:04
--- NOTE | 2019-10-03 13:44 | DI.RAD.S_ITS ---
PROCEDURE: XR ELBOW RT MIN 3V INDICATIONS: fall with pain TECHNIQUE: 3 views of the elbow were acquired. COMPARISON: None. FINDINGS: Bones: No fractures or dislocations. No suspicious bony lesions. Soft tissues: No elbow joint effusion. No suspicious soft tissue calcifications. IMPRESSION: No definite fractures or joint effusion. Dictated by: Agnieszka Landry M.D. on 10/03/2019 at 15:02 Approved by: Agnieszka Landry M.D. on 10/03/2019 at 15:03
[2019-10-03 14:08] LABS: Ur Creatinine Normal (Normal); Ur Specific Gravity Normal (Normal); Urine pH Normal (Normal)
[2019-10-03 14:09] LABS: UR Morphine/Opiate cutoff 300 Positive (Negative); Urine Amphetamines Negative (Negative); Urine Barbiturates Negative (Negative); Urine Benzodiazepines Negative (Negative); Urine Cocaine Negative (Negative); Urine MDMA Negative (Negative); Urine Methadone Negative (Negative); Urine Methamphetamines Negative (Negative); Urine Oxycodone Positive (Negative); Urine Phencyclidine Negative (Negative); Urine Tetrahydrocannabinol Negative (Negative); Urine Tricyclic Antidepressant Positive (Negative)
[2019-10-03 14:12] LABS: Amorphous Sediment Urine 2+; Bacteria Urine Moderate (10-30); Culture Indicated Urine Specimen Cultured; Hyaline Casts Urine 10-30/LPF; Mucus Urine 1+ (Negative); RBC Urine 5-10/HPF (0-5/HPF); Squamous Epithelial Cell Urine 1-5 /HPF (0-5/HPF); Transitional Epi Cells Urine 5-10/HPF (0-5/HPF); WBC Urine 5-10/HPF (0-5/HPF); White Blood Cell Casts Urine 5-10/LPF
[2019-10-03 15:20] LABS: BUN Creatinine Ratio 15.2 (6-22); Blood Urea Nitrogen 19 mg/dL (7-17); Calcium 8.6 mg/dL (8.4-10.2); Carbon Dioxide 27 mmol/L (22-32); Chloride 104 mmol/L (98-107); Estimated Glomerular Filt Rate 47.5 mL/min (>60); Glucose 127 mg/dL (70-100); Sodium 138 mmol/L (137-145)
[2019-10-03 15:27] LABS: HEMOLYSIS 59 (0-50); Potassium 5.4 mmol/L (3.4-5.1)
[2019-10-03 15:33] LABS: Creatine Kinase 29868 U/L (30-135)
[2019-10-03 15:36] LABS: Troponin I 0.128 ng/mL (0.01-0.034)
[2019-10-03 15:49] LABS: CKMB % Relative Index 0.9 % (1.5-5.0)
[2019-10-03 17:06] LABS: COVID19 -Nasal RAPID Negative (Negative)
== END 2019-10-03 18:27 | disposition short-term general hospital (02) ==
PROVIDERS: Emergency Provider Emergency Medicine; Family Provider Family Medicine; PCP Family Medicine
DX: R09.02 Hypoxemia (principal); N17.9 Acute kidney failure, unspecified; M62.82 Rhabdomyolysis; M25.561 Pain in right knee; M25.521 Pain in right elbow; S09.90XA Unspecified injury of head, initial encounter; S09.93XA Unspecified injury of face, initial encounter; S14.5XXA Injury of cervical sympathetic nerves, initial encounter; E66.01 Morbid (severe) obesity due to excess calories; R29.6 Repeated falls; W19.XXXA Unspecified fall, initial encounter
CPT/HCPCS: 36415; 36600; 70450; 70486; 71260; 72125; 73030; 73080; 73562; 74177; 80048; 80053; 80305; 81003; 81015; 82550; 82553; 82805; 82962; 83605; 84145; 84484; 85025; 85610; 85730; 87040; 87086; 87635; 93005; 93010; 96365; 96366; 99285; 99291; G0390; J1956; Q9967

== ENCOUNTER → 2019-10-19 15:44 | Outpatient (CLI) | payer OTHER, MEDICAID, SELFPAY ==
[2018-09-22 12:32] VITALS: BMI 46.3
[2019-10-19 16:51] LABS: Add Manual Diff / Slide Review NO; Basophils Absolute Auto 100 /uL (0-100); Basophils Percent Auto 0.8 % (0-2); Eosinophils Absolute Auto 700 /uL (0-450); Eosinophils Percent Auto 5.5 % (2-4); Hematocrit 38.1 % (36-46); Hemoglobin 12.7 g/dL (12.0-16.0); Lymphocytes Absolute Auto 2200 /uL (1100-4500); Lymphocytes Percent Auto 17.5 % (25-40); Mean Corpuscular HGB Conc 33.4 % (30-36); Mean Corpuscular Hemoglobin 29.3 PG (26-34); Mean Corpuscular Volume 87.9 fL (80-100); Monocytes Absolute Auto 900 /uL (0-900); Neutrophils Absolute Auto 8600 /uL (1500-7000); Neutrophils Percent Auto 69.2 % (50-75); Platelet Count 539 X10^3/uL (150-400); Red Blood Cell Count 4.34 X10^6/uL (4.0-5.2); Red Cell Distribution Width 16.3 % (11.6-14.8); White Blood Cell Count 12.5 X10^3/uL (4.5-11.0)
[2019-10-19 17:25] LABS: Alanine Aminotransferase 147 IU/L (<35); Albumin 4.5 g/dL (3.5-5.0); Albumin Globulin Ratio 1.5 (1.0-2.8); Alkaline Phosphatase 237 U/L (38-126); Aspartate Aminotransferase 107 IU/L (14-36); BUN Creatinine Ratio 22.4 (6-22); Bilirubin Total 0.4 mg/dL (0.2-1.3); Blood Urea Nitrogen 15 mg/dL (7-17); Calcium 10.2 mg/dL (8.4-10.2); Carbon Dioxide 27 mmol/L (22-32); Chloride 103 mmol/L (98-107); Cholesterol 261 mg/dL (140-199); Estimated Glomerular Filt Rate > 60.0 mL/min (>60); Globulin 3.1 g/dL (1.7-4.1); Glucose 76 mg/dL (70-100); HDL Cholesterol 46 mg/dL (40-60); HEMOLYSIS < 15 (0-50); Magnesium 2.5 mg/dL (1.6-2.3); Sodium 139 mmol/L (137-145); Total Protein 7.6 g/dL (6.3-8.2); Triglycerides 459 mg/dL (35-150)
[2019-10-19 17:26] LABS: Potassium 5.4 mmol/L (3.4-5.1)
[2019-10-19 17:34] LABS: Free T3, Triiodothyronine Free 3.14 pg/mL (2.77-5.27); Free T4, Direct Thyroxine 0.81 ng/dL (0.78-2.19)
[2019-10-19 17:48] LABS: Thyroid Stimulating Hormone 4.84 uIU/mL (0.47-4.68)
== END ==
PROVIDERS: Family Provider Family Medicine; PCP Family Medicine; Referring Provider Family Medicine; Visit Provider Family Medicine
DX: E03.9 Hypothyroidism, unspecified (principal); E66.01 Morbid (severe) obesity due to excess calories; I10 Essential (primary) hypertension; Z68.41 Body mass index [BMI] 40.0-44.9, adult; Z86.32 Personal history of gestational diabetes
CPT/HCPCS: 36415; 80053; 80061; 83735; 84439; 84443; 84481; 85025

== ENCOUNTER 2019-11-07 03:21 | Emergency (ER) | payer OTHER, MEDICAID, SELFPAY ==
[2019-10-25 11:58] VITALS: BMI 46.3
[2019-11-07] VITALS (15 sets, daily range): BP systolic 118–199; BP diastolic 68–110; PULSE 77–94; RESP 13–24; TEMP 36.8; O2SAT 96–99
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
--- NOTE | 2019-11-07 03:39 | PC.NURSE ---
Pt arrives to ED via [facility] obtunded and unresponsive. minimal response to noxious stimuli. Dr Coy with ammonia at bedside with minimal response. Per EMS pt drank a bottle of vodka tonight at home with her . h/o ETOH. h/o kidney issues. noted to take seroquel on [place] DC instructions. protecting her own airway well. attached to cardiac monitoring. ETCO2 applied--45mmhg. awaiting further orders
[2019-11-07 03:40] LABS: Add Manual Diff / Slide Review NO; Basophils Absolute Auto 100 /uL (0-100); Basophils Percent Auto 0.9 % (0-2); Eosinophils Absolute Auto 500 /uL (0-450); Eosinophils Percent Auto 6.2 % (2-4); Hematocrit 41.1 % (36-46); Hemoglobin 13.4 g/dL (12.0-16.0); Lymphocytes Absolute Auto 2100 /uL (1100-4500); Mean Corpuscular HGB Conc 32.5 % (30-36); Mean Corpuscular Hemoglobin 28.8 PG (26-34); Mean Corpuscular Volume 88.6 fL (80-100); Monocytes Absolute Auto 600 /uL (0-900); Monocytes Percent Auto 6.7 % (3-14); Neutrophils Absolute Auto 5300 /uL (1500-7000); Neutrophils Percent Auto 62.2 % (50-75); Platelet Count 244 X10^3/uL (150-400); Red Blood Cell Count 4.64 X10^6/uL (4.0-5.2); White Blood Cell Count 8.6 X10^3/uL (4.5-11.0)
[2019-11-07] MEDS: AMMONIA INHALANT 1 EACH INH (03:43)
[2019-11-07 03:50] LABS: Alanine Aminotransferase 35 IU/L (<35); Albumin 4.6 g/dL (3.5-5.0); Albumin Globulin Ratio 1.4 (1.0-2.8); Alkaline Phosphatase 151 U/L (38-126); Aspartate Aminotransferase 46 IU/L (14-36); BUN Creatinine Ratio 11.5 (6-22); Bilirubin Total 0.5 mg/dL (0.2-1.3); Blood Urea Nitrogen 7 mg/dL (7-17); Calcium 9.8 mg/dL (8.4-10.2); Carbon Dioxide 27 mmol/L (22-32); Chloride 104 mmol/L (98-107); Estimated Glomerular Filt Rate > 60.0 mL/min (>60); Ethanol (ETOH) 135 mg/dL; Globulin 3.3 g/dL (1.7-4.1); Glucose 114 mg/dL (70-100); HEMOLYSIS 17 (0-50); Potassium 3.8 mmol/L (3.4-5.1); Sodium 143 mmol/L (137-145); Total Protein 7.9 g/dL (6.3-8.2)
--- NOTE | 2019-11-07 04:05 | DI.CT.S_ITS ---
PROCEDURE: CT HEAD/BRAIN WO CON INDICATIONS: AMS TECHNIQUE: Noncontrast 4.5 mm thick angled axial sections acquired from the foramen magnum to the vertex, with coronal and sagittal reformats. For radiation dose reduction, the following was used: automated exposure control, adjustment of mA and/or kV according to patient size. COMPARISON: None. FINDINGS: Image quality: Excellent. CSF spaces: Basal cisterns are patent. No extra-axial fluid collections. Ventricles are normal in size and shape. Brain: No midline shift. No intracranial masses or hemorrhage. Steiner-white matter interface is normal. Skull and face: Calvarium and visualized facial bones are intact, without suspicious lesions. Sinuses: Visualized sinuses and mastoids are clear. IMPRESSION: No evidence acute stroke, hemorrhage or mass. Comment: Final report is concordant with preliminary interpretation provided by [facility]. Dictated by: Dewey Mendieta M.D. on 11/07/2019 at 7:20 Approved by: Dewey Mendieta M.D. on 11/07/2019 at 7:24
[2019-11-07 04:06] LABS: Pregnancy Test Serum,Qual Negative (Negative)
[2019-11-07] MEDS: SODIUM CHLORIDE 0.9% 1,000 ML 125 ML IV (04:10)
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
[2019-11-07] MEDS: KETOROLAC 60 MG/2 ML VIAL 30 MG IV (04:29)
[2019-11-07 05:17] LABS: RBC Urine None Seen (0-5/HPF); WBC Urine None Seen (0-5/HPF)
[2019-11-07 05:18] LABS: Appearance Urine UA CLEAR; Bilirubin Urine UA NEGATIVE (NEGATIVE); Color Urine UA YELLOW; Glucose Urine UA NEGATIVE (Negative); Ketones Urine UA NEGATIVE (NEGATIVE); Leukocyte Esterase Urine UA NEGATIVE (NEGATIVE); Nitrite Urine UA NEGATIVE (Negative); Occult Blood Urine UA NEGATIVE (Negative); Protein Urine UA NEGATIVE (Negative); Specific Gravity Urine UA <=1.005 (1.000-1.035); Urobilinogen Urine UA 0.2 E.U./dL (0.2)
[2019-11-07 05:33] LABS: Bacteria Urine Few (2-10); Culture Indicated Urine Cult Not Indicated; Squamous Epithelial Cell Urine 1-5 /HPF (0-5/HPF)
== END 2019-11-07 07:42 | disposition home or self-care (01) ==
PROVIDERS: Emergency Provider Emergency Medicine; Family Provider Family Medicine; PCP Family Medicine
DX: F10.129 Alcohol abuse with intoxication, unspecified (principal); Y90.6 Blood alcohol level of 120-199 mg/100 ml
CPT/HCPCS: 70450; 80053; 80320; 81001; 84703; 85025; 96361; 96374; 99284; J1885

== ENCOUNTER → 2019-11-12 11:31 | Outpatient (CLI) | payer OTHER, MEDICAID, SELFPAY ==
[2019-10-25 11:58] VITALS: BMI 46.3
[2019-11-12 12:28] LABS: Add Manual Diff / Slide Review NO; Basophils Absolute Auto 100 /uL (0-100); Basophils Percent Auto 0.7 % (0-2); Eosinophils Absolute Auto 700 /uL (0-450); Eosinophils Percent Auto 7.5 % (2-4); Hematocrit 37.7 % (36-46); Hemoglobin 12.4 g/dL (12.0-16.0); Lymphocytes Absolute Auto 1400 /uL (1100-4500); Lymphocytes Percent Auto 15.4 % (25-40); Mean Corpuscular HGB Conc 32.7 % (30-36); Mean Corpuscular Volume 88.7 fL (80-100); Monocytes Absolute Auto 500 /uL (0-900); Monocytes Percent Auto 6.2 % (3-14); Neutrophils Absolute Auto 6300 /uL (1500-7000); Neutrophils Percent Auto 70.2 % (50-75); Platelet Count 244 X10^3/uL (150-400); Red Blood Cell Count 4.25 X10^6/uL (4.0-5.2); White Blood Cell Count 8.9 X10^3/uL (4.5-11.0)
[2019-11-12 12:35] LABS: Alanine Aminotransferase 20 IU/L (<35); Albumin 4.5 g/dL (3.5-5.0); Albumin Globulin Ratio 1.6 (1.0-2.8); Alkaline Phosphatase 130 U/L (38-126); Aspartate Aminotransferase 26 IU/L (14-36); BUN Creatinine Ratio 20.3 (6-22); Bilirubin Total 0.3 mg/dL (0.2-1.3); Blood Urea Nitrogen 13 mg/dL (7-17); Calcium 9.6 mg/dL (8.4-10.2); Carbon Dioxide 29 mmol/L (22-32); Chloride 104 mmol/L (98-107); Estimated Glomerular Filt Rate > 60.0 mL/min (>60); Globulin 2.8 g/dL (1.7-4.1); Glucose 89 mg/dL (70-100); HEMOLYSIS < 15 (0-50); Potassium 4.5 mmol/L (3.4-5.1); Sodium 139 mmol/L (137-145); Total Protein 7.3 g/dL (6.3-8.2)
== END ==
PROVIDERS: Family Provider Family Medicine; PCP Family Medicine; Referring Provider Family Medicine; Visit Provider Family Medicine
DX: E03.9 Hypothyroidism, unspecified (principal); F32.9 Major depressive disorder, single episode, unspecified; R74.0 Nonspecific elevation of levels of transaminase and lactic acid dehydrogenase [LDH]
CPT/HCPCS: 36415; 80053; 80335; 85025

== ENCOUNTER → 2020-01-31 14:22 | Outpatient (CLI) | payer OTHER, MEDICAID, SELFPAY ==
[2019-12-06 14:40] VITALS: BMI 46.3
[2020-01-31 14:55] LABS: Hemoglobin A1C% w Est Avg Glu 5.4 % (4.0-6.0)
[2020-01-31 15:40] LABS: Follicle Stimulating Hormone 7.63 mIU/mL
== END ==
PROVIDERS: Family Provider Family Medicine; PCP Family Medicine; Referring Provider Family Medicine; Visit Provider Family Medicine
DX: E03.9 Hypothyroidism, unspecified (principal); Z86.32 Personal history of gestational diabetes
CPT/HCPCS: 36415; 83001; 83036; 84443

== ENCOUNTER 2020-02-26 16:54 | Emergency (ER) | payer OTHER, MEDICAID, SELFPAY ==
[2019-12-06 14:40] VITALS: BMI 46.3
[2020-02-26] VITALS (10 sets, daily range): BP systolic 124–171; BP diastolic 61–98; PULSE 66–82; RESP 11–27; TEMP 36.7; O2SAT 87–99; BMI 51.0
--- NOTE | 2020-02-26 16:59 | DI.CT.S_ITS ---
PROCEDURE: CT CERVICAL SPINE WO CON INDICATIONS: syncope neck pain TECHNIQUE: Noncontrast 3 mm thick sections acquired from the skull base to the T4 level. Sagittal and coronal reformats were then constructed. For radiation dose reduction, the following was used: automated exposure control, adjustment of mA and/or kV according to patient size. COMPARISON: [facility], CT, SOFT TISSUE NECK W CONTRAST, 11/24/2015, 8:45. [facility], CT, CT HEAD/BRAIN WO CON, 02/26/2020, 17:01. [facility], CR, XR CHEST 1V, 02/26/2020, 17:01. [facility], CT, CT CERVICAL SPINE WO CON, 10/03/2019, 12:30. FINDINGS: Image quality: This study is limited by body habitus. Bones: No fractures or dislocations. Visualized superior ribs are intact. Soft tissues: Prevertebral soft tissues are normal in thickness. No paravertebral hematomas. No apical pneumothoraces. IMPRESSION: Negative for acute fracture. Dictated by: Dallin Umanzor M.D. on 02/26/2020 at 16:38 Approved by: Dallin Umanzor M.D. on 02/26/2020 at 16:39
--- NOTE | 2020-02-26 16:59 | DI.CT.S_ITS ---
PROCEDURE: CT HEAD/BRAIN WO CON INDICATIONS: syncope TECHNIQUE: Noncontrast 4.5 mm thick angled axial sections acquired from the foramen magnum to the vertex, with coronal and sagittal reformats. For radiation dose reduction, the following was used: automated exposure control, adjustment of mA and/or kV according to patient size. COMPARISON: [facility], MR, BRAIN WITHOUT CONTRAST, 11/24/2008, 17:19. [facility], CT, HEAD WITHOUT CONTRAST, 08/14/2016, 0:16. [facility], CT, CT HEAD/BRAIN W CON, 01/15/2018, 15:33. [facility], CT, CT HEAD/BRAIN WO CON, 10/03/2019, 12:30. [facility], CT, CT CERVICAL SPINE WO CON, 02/26/2020, 17:01. [facility], CR, XR CHEST 1V, 02/26/2020, 17:01. [facility], CT, CT HEAD/BRAIN WO CON, 11/07/2019, 4:18. FINDINGS: Image quality: Diagnostic CSF spaces: Basal cisterns are patent. No extra-axial fluid collections. Ventricles are normal in size and shape. Brain: No midline shift. No intracranial masses or hemorrhage. Steiner-white matter interface is normal. Skull and face: Calvarium and visualized facial bones are intact, without suspicious lesions. Sinuses: Visualized sinuses and mastoids are clear. IMPRESSION: Unremarkable intracranial study, stable from priors. Dictated by: Dallin Umanzor M.D. on 02/26/2020 at 16:36 Approved by: Dallin Umanzor M.D. on 02/26/2020 at 16:37
--- NOTE | 2020-02-26 17:00 | DI.RAD.S_ITS ---
PROCEDURE: XR CHEST 1V INDICATIONS: syncope TECHNIQUE: One view of the chest was acquired. COMPARISON: [facility], CR, XR CHEST 1 VIEW, 10/06/2019, 2:24. [facility], CR, XR CHEST 1 VIEW, 10/05/2019, 9:12. [facility], CR, XR CHEST 1 VIEW, 10/03/2019, 20:00. [facility], CT, CT HEAD/BRAIN WO CON, 02/26/2020, 17:01. [facility], CT, CT CERVICAL SPINE WO CON, 02/26/2020, 17:01. [facility], CR, XR CHEST 1V, 08/17/2019, 18:06. FINDINGS: Surgical changes and devices: None. Lungs and pleura: Lungs are clear. No pleural effusions or pneumothorax. Mediastinum: Mediastinal contours appear normal. Heart size is normal. Bones and chest wall: No suspicious bony lesions. Overlying soft tissues appear unremarkable. IMPRESSION: No significant portable chest abnormality is seen. Dictated by: Dallin Umanzor M.D. on 02/26/2020 at 16:31 Approved by: Dallin Umanzor M.D. on 02/26/2020 at 16:35
[2020-02-26] MEDS: SODIUM CHLORIDE 0.9% 1,000 ML 1000 ML IV ×2 (17:30→19:35)
[2020-02-26 18:03] LABS: Add Manual Diff / Slide Review NO; Basophils Absolute Auto 100 /uL (0-100); Basophils Percent Auto 0.6 % (0-2); Eosinophils Absolute Auto 400 /uL (0-450); Hematocrit 37.2 % (36-46); Hemoglobin 12.2 g/dL (12.0-16.0); Lymphocytes Absolute Auto 1600 /uL (1100-4500); Lymphocytes Percent Auto 16.8 % (25-40); Mean Corpuscular HGB Conc 32.8 % (30-36); Mean Corpuscular Hemoglobin 28.4 PG (26-34); Mean Corpuscular Volume 86.5 fL (80-100); Monocytes Absolute Auto 600 /uL (0-900); Neutrophils Absolute Auto 6600 /uL (1500-7000); Neutrophils Percent Auto 71.6 % (50-75); Platelet Count 267 X10^3/uL (150-400); White Blood Cell Count 9.2 X10^3/uL (4.5-11.0)
[2020-02-26 18:14] LABS: Ethanol (ETOH) < 10 mg/dL
[2020-02-26 18:15] LABS: COVID19 -Nasal RAPID Negative (Negative)
--- NOTE | 2020-02-26 18:22 | PC.NURSE ---
c spine cleared. benita Lang removed
[2020-02-26 19:11] LABS: Lactate (Lactic Acid) 1.3 mmol/L (0.7-2.1)
[2020-02-26 19:12] LABS: Alanine Aminotransferase 28 IU/L (<35); Albumin 3.8 g/dL (3.5-5.0); Albumin Globulin Ratio 1.3 (1.0-2.8); Alkaline Phosphatase 117 U/L (38-126); Aspartate Aminotransferase 44 IU/L (14-36); BUN Creatinine Ratio 13.2 (6-22); Bilirubin Total 0.5 mg/dL (0.2-1.3); Blood Urea Nitrogen 10 mg/dL (7-17); Calcium 8.6 mg/dL (8.4-10.2); Carbon Dioxide 30 mmol/L (22-32); Chloride 105 mmol/L (98-107); Creatine Kinase 741 U/L (30-135); Estimated Glomerular Filt Rate > 60.0 mL/min (>60); Globulin 2.9 g/dL (1.7-4.1); Glucose 113 mg/dL (70-100); HEMOLYSIS < 15 (0-50); Lipase 34 U/L (23-300); Potassium 3.9 mmol/L (3.4-5.1); Sodium 140 mmol/L (137-145); Total Protein 6.7 g/dL (6.3-8.2)
[2020-02-26 19:21] LABS: NT-proBNP (BNP-Adult 18+) 85 pg/mL (<125)
[2020-02-26 19:24] LABS: Troponin I < 0.012 ng/mL (0.01-0.034)
[2020-02-26 19:27] LABS: CKMB % Relative Index 1.5 % (1.5-5.0)
--- NOTE | 2020-02-26 19:33 | ED.FALL ---
HPI - Fall <Precious Lawson REGIONAL COORDINATOR-BC - Last Filed: 02/26/20 21:01> General Chief Complaint: Trauma Stated Complaint: Fall Time Seen by Provider: 02/26/20 16:59 Source: EMS Mode of arrival: EMS Limitations: no limitations History of Present Illness HPI Narrative: The patient is a 39-year-old female current smoker with history of rhabdomyolysis, pneumonia and acute kidney injury who presents with a chief complaint of a episode of weakness and a fall earlier today. She states that for the past 2 days, she has had a cough, muscle aches and generalized weakness. She states she felt like she was going to pass out, fell forward landed on her stomach as a ground level fall and came to the emergency department with neck pain. She denies any fevers complains of muscle aches chills. She denies any nausea vomiting or diarrhea. She denies any abdominal pain chest pain or shortness of breath. She states that for the past few days she has felt weak and noticed that her urine is dark and slightly smelly. She denies dysuria urgency or frequency. Patient denies any numbness or tingling. Patient does note that she felt weak and near syncopal when standing up quickly out of a chair her just prior to arrival. Related Data Previous Rx's Medication Instructions Recorded tizanidine 4 mg tablet 4 mg PO TIDP PRN #90 tab 04/22/16 inhalational spacing device #1 each 02/05/18 ipratropium 0.5 mg-albuterol 3 mg 3 ml INHALATION Q4H PRN #180 ml 06/26/18 (2.5 mg base)/3 mL nebulization soln albuterol sulfate 2.5 mg INHALATION Q4-6H PRN #90 ml 06/02/19 levothyroxine 112 mcg tablet 112 mcg PO DAILY #90 tab 10/01/19 albuterol sulfate 90 mcg/actuation 2 puff INHALATION Q4HP PRN #1 each 10/29/19 aerosol inhaler acyclovir 400 mg tablet 400 mg PO TID #30 tab 11/08/19 bupropion HCl 150 mg 24 hr tablet, 150 mg PO QAM #30 tab 11/08/19 extended release quetiapine 25 mg tablet 12.5 mg PO BID PRN #60 tab 11/12/19 metoprolol tartrate 25 mg tablet 25 mg PO BID #60 tab 11/26/19 duloxetine 60 mg capsule,delayed 60 mg PO DAILY #30 cap 01/14/20 release pregabalin 200 mg capsule 200 mg PO BID #60 cap 01/25/20 amitriptyline 75 mg tablet 150 mg PO BEDTIME #60 tab 01/27/20 oxycodone-acetaminophen 5 mg-325 1 tab PO Q6H PRN #120 tab 02/15/20 mg tablet Allergies Allergy/AdvReac Type Severity Reaction Status Date / Time Penicillins [PENICILLINS] Allergy Unknown Verified 02/26/20 17:25 fluconazole [From DIFLUCAN] AdvReac Intermediate vomiting Verified 02/26/20 17:25 and abd pain codeine [CODEINE] AdvReac Mild NAUSEA Verified 02/26/20 17:25 Review of Systems <OMAR Weiner - Last Filed: 02/26/20 21:01> Review of Systems Narrative: GENERAL: See HPI HEENT: Denies sinus pain, ear pain, sore throat, difficulty swallowing, dizziness. RESPIRATORY: Denies dyspnea, cough, wheezing, hemoptysis, sputum. CARDIOVASCULAR: Denies chest pain, palpitations, orthopnea, edema, GASTROINTESTINAL: Denies nausea, vomiting, abdominal pain, diarrhea, constipation, melena. : Denies dysuria, frequency, incontinence, hematuria, urinary retention. MUSCULOSKELETAL: denies weakness, joint pain, or bony pain SKIN: Denies rash, skin lesions, or other NEUROLOGIC: See HPI PSYCHIATRIC: No concerning psychosocial issues. 12 point review of systems is negative except for those stated above Patient History <OMAR Weiner - Last Filed: 02/26/20 21:01> Medical History Asthma (Chronic) Depression (Chronic) Diverticular disease (Chronic ~2015) Essential hypertension (Acute) Fibromyalgia (Chronic ~05/2017) Gestational diabetes mellitus (GDM) (Inactive 10/27/14) History of PCR DNA positive for HSV1 (Inactive ~2014) Hypothyroidism (Chronic ~2008) Irritable bowel syndrome (Chronic) Lymphedema of arm (Acute) Major depressive disorder (Acute) Migraines (Chronic) Rheumatoid arthritis (Chronic) Upper extremity somatic dysfunction (Acute) Surgical History Status post delivery (12/30/14) Status post laparoscopic supracervical hysterectomy (10/23/15) Status post laparoscopy (01/19/16) Status post surgery (07/07/12) Status post tubal ligation (12/30/14) Family History Grandmother Stroke Grandfather Heart disease Cancer Father Hypertension Social History household members: spouse and children Smoking Status: Current some day smoker Smoking Status: Current some day smoker alcohol intake frequency: a few times a week Substance Use Type: marijuana Exam <OMAR Weiner - Last Filed: 02/26/20 21:01> Narrative Exam Narrative: GENERAL: This is a well-nourished, well-developed patient, in no acute distress HEAD: Atraumatic. Normocephalic. No temporal or scalp tenderness. EYES: Pupils equal round and reactive. Extraocular motions intact. No scleral icterus. No injection or drainage. ENT: Nose without bleeding, purulent drainage or septal hematoma. Throat without erythema, tonsillar hypertrophy or exudate. Uvula midline. Airway patent. Very dry mucous membranes noted. NECK: Trachea midline. No JVD or lymphadenopathy. Supple, nontender, no meningeal signs. CARDIOVASCULAR: Regular rate and rhythm RESPIRATORY: Clear to auscultation. Breath sounds equal bilaterally. No wheezes, rales, or rhonchi. No cough. No increased respiratory effort. No accessory muscle use. GASTROINTESTINAL: Abdomen soft, non-tender, nondistended. No hepato-splenomegaly, or palpable masses. No guarding. Active bowel sounds 4 quadrants. EXTREMITIES: No clubbing, cyanosis, or edema. No joint tenderness, effusion, or edema noted. BACK: Pain to C-spine palpation without deformity or crepitance. No flank tenderness. No pain to midline T or L-spine palpation NEURO: AOx3. Following commands. SKIN: No rash or erythema visible skin. Initial Vital Signs Initial Vital Signs: Vital Signs Temperature 98.1 F 02/26/20 16:54 Pulse Rate 70 02/26/20 16:54 Respiratory Rate 18 02/26/20 16:54 Blood Pressure 130/61 02/26/20 16:54 Pulse Oximetry 98 02/26/20 16:54 <Eugene Philip MD - Last Filed: 02/26/20 22:30> Initial Vital Signs Initial Vital Signs: Vital Signs Temperature 98.1 F 02/26/20 16:54 Pulse Rate 70 02/26/20 16:54 Respiratory Rate 18 02/26/20 16:54 Blood Pressure 130/61 02/26/20 16:54 Pulse Oximetry 98 02/26/20 16:54 Scores <OMAR Weiner - Last Filed: 02/26/20 21:01> GCS Bernadette coma scale eye opening: Spontaneous Bernadette coma scale verbal response: Orientated Whitewood coma scale motor response: Obey commands Whitewood coma scale total score: 15 NIH Stroke Scale Level of Conciousness: Alert, keenly responsive Ask month/age: Answers both questions correctly. Open/close eyes, close hand: Performs both tasks correctly Best gaze horizontal: Normal Visual sánchez: No visual loss Facial palsy: Normal symetrical movement Left arm drift: No drift for full 10 sec Right arm drift: No drift for full 10 sec Left leg drift: No drift for full 5 sec Right leg drift: No drift for full 5 sec Limb ataxia: Absent Sensory on face/arms/legs: Normal, no sensory loss Best language: No aphasia, normal Dysarthria: Normal Extinction or inattention: No abnormality Total NIH Stroke scale score: 0 Course <OMAR Weiner - Last Filed: 02/26/20 21:01> Orders Ordered: ED Orders 02/26/20 16:59 CT cervical spine wo con Stat CT head/brain wo con Stat 02/26/20 17:00 XR chest 1V Stat EKG-12 Lead Stat 02/26/20 17:33 COVID19 -ED/INPAT/OR/L&D Stat 02/26/20 17:35 Complete Blood Count AUTO DIFF Stat Comprehensive Metabolic Panel Stat Ethanol (ETOH) Stat Lactate (Lactic Acid) Stat Lipase Stat NT-proBNP (BNP-Adult 18+) Stat Troponin & CK Cardiac Panel Stat 02/26/20 20:15 Troponin & CK Cardiac Panel Stat 02/26/20 20:30 Urine Drug Screen, Rapid Stat Discontinued Medications Sodium Chloride (Normal Saline 0.9%) 1,000 mls @ 1,000 mls/hr IV CONT OTTONIEL Last Infusion: 02/26/20 18:52 Dose: 0 mls/hr Documented by: Admin: 02/26/20 17:30 Dose: 1,000 mls/hr Documented by: RICHAR Sodium Chloride (Normal Saline 0.9%) 1,000 mls @ 250 mls/hr IV CONT OTTONIEL Last Admin: 02/26/20 19:35 Dose: Not Given Documented by: EMILY Sodium Chloride (Normal Saline 0.9%) 1,000 mls @ 1,000 mls/hr IV BOLUS ONE Stop: 02/26/20 20:30 Last Infusion: 02/26/20 21:09 Dose: 0 mls/hr Documented by: Admin: 02/26/20 19:35 Dose: 1,000 mls/hr Documented by: EMILY Ketorolac Tromethamine (Toradol) 30 mg IV NOW ONE Stop: 02/26/20 19:35 Last Admin: 02/26/20 19:40 Dose: 30 mg Documented by: EMILY Lidocaine (Lidoderm) 1 each TOP NOW ONE Stop: 02/26/20 20:54 Last Admin: 02/26/20 21:09 Dose: 1 each Documented by: EMILY Vital Signs Vital signs: Vital Signs - 8 hr 02/26/20 16:54 02/26/20 17:57 02/26/20 18:00 Temperature 98.1 F Pulse Rate 70 66 66 Respiratory Rate 18 15 13 Blood Pressure 130/61 124/67 Pulse Oximetry 98 96 95 02/26/20 18:30 02/26/20 19:00 02/26/20 19:30 Temperature Pulse Rate 66 73 67 Respiratory Rate 11 L 27 H 13 Blood Pressure 130/81 148/81 H Pulse Oximetry 96 87 L 98 02/26/20 20:00 02/26/20 20:33 02/26/20 21:00 Temperature Pulse Rate 68 82 73 Respiratory Rate 13 13 Blood Pressure 162/92 H 171/95 H Pulse Oximetry 98 99 02/26/20 21:02 Temperature Pulse Rate 74 Respiratory Rate 19 Blood Pressure 164/98 H Pulse Oximetry 99 <Eugene Philip MD - Last Filed: 02/26/20 22:30> Orders Ordered: ED Orders 02/26/20 16:59 CT cervical spine wo con Stat CT head/brain wo con Stat 02/26/20 17:00 XR chest 1V Stat EKG-12 Lead Stat 02/26/20 17:33 COVID19 -ED/INPAT/OR/L&D Stat 02/26/20 17:35 Complete Blood Count AUTO DIFF Stat Comprehensive Metabolic Panel Stat Ethanol (ETOH) Stat Lactate (Lactic Acid) Stat Lipase Stat NT-proBNP (BNP-Adult 18+) Stat Troponin & CK Cardiac Panel Stat 02/26/20 20:15 Troponin & CK Cardiac Panel Stat 02/26/20 20:30 Urine Drug Screen, Rapid Stat Discontinued Medications Sodium Chloride (Normal Saline 0.9%) 1,000 mls @ 1,000 mls/hr IV CONT OTTONIEL Last Infusion: 02/26/20 18:52 Dose: 0 mls/hr Documented by: Admin: 02/26/20 17:30 Dose: 1,000 mls/hr Documented by: RICHAR Sodium Chloride (Normal Saline 0.9%) 1,000 mls @ 250 mls/hr IV CONT OTTONIEL Last Admin: 02/26/20 19:35 Dose: Not Given Documented by: EMILY Sodium Chloride (Normal Saline 0.9%) 1,000 mls @ 1,000 mls/hr IV BOLUS ONE Stop: 02/26/20 20:30 Last Infusion: 02/26/20 21:09 Dose: 0 mls/hr Documented by: Admin: 02/26/20 19:35 Dose: 1,000 mls/hr Documented by: EMILY Ketorolac Tromethamine (Toradol) 30 mg IV NOW ONE Stop: 02/26/20 19:35 Last Admin: 02/26/20 19:40 Dose: 30 mg Documented by: EMILY Lidocaine (Lidoderm) 1 each TOP NOW ONE Stop: 02/26/20 20:54 Last Admin: 02/26/20 21:09 Dose: 1 each Documented by: EMILY Vital Signs Vital signs: Vital Signs - 8 hr 02/26/20 16:54 02/26/20 17:57 02/26/20 18:00 Temperature 98.1 F Pulse Rate 70 66 66 Respiratory Rate 18 15 13 Blood Pressure 130/61 124/67 Pulse Oximetry 98 96 95 02/26/20 18:30 02/26/20 19:00 02/26/20 19:30 Temperature Pulse Rate 66 73 67 Respiratory Rate 11 L 27 H 13 Blood Pressure 130/81 148/81 H Pulse Oximetry 96 87 L 98 02/26/20 20:00 02/26/20 20:33 02/26/20 21:00 Temperature Pulse Rate 68 82 73 Respiratory Rate 13 13 Blood Pressure 162/92 H 171/95 H Pulse Oximetry 98 99 02/26/20 21:02 Temperature Pulse Rate 74 Respiratory Rate 19 Blood Pressure 164/98 H Pulse Oximetry 99 MDM - Fall <JANNETTE Weiner- - Last Filed: 02/26/20 21:01> Lab Data Attestation: I reviewed the patient's lab results. Result diagrams: 02/26/20 17:35 02/26/20 17:35 Labs: Lab Results 02/26/20 02/26/20 02/26/20 Range/Units 17:33 17:35 17:35 WBC 9.2 (4.5-11.0) X10^3/uL RBC 4.30 (4.0-5.2) X10^6/uL Hgb 12.2 (12.0-16.0) g/dL Hct 37.2 (36-46) % MCV 86.5 (80-100) fL MCH 28.4 (26-34) PG MCHC 32.8 (30-36) % RDW 16.0 H (11.6-14.8) % Plt Count 267 (150-400) X10^3/uL Neut % (Auto) 71.6 (50-75) % Lymph % (Auto) 16.8 L (25-40) % [place] % (Auto) 7.0 (3-14) % Eos % (Auto) 4.0 (2-4) % Baso % (Auto) 0.6 (0-2) % Neut # (Auto) 6600 (2398-5338) /uL Lymph # (Auto) 1600 (5354-0342) /uL [place] # (Auto) 600 (0-900) /uL Eos # (Auto) 400 (0-450) /uL Baso # (Auto) 100 (0-100) /uL Sodium 140 (137-145) mmol/L Potassium 3.9 (3.4-5.1) mmol/L Chloride 105 (98-107) mmol/L Carbon Dioxide 30 (22-32) mmol/L BUN 10 (7-17) mg/dL Creatinine 0.76 (0.52-1.04) mg/dL Estimated GFR > 60.0 (>60) mL/min BUN/Creatinine Ratio 13.2 (6-22) Glucose 113 H (70-100) mg/dL Lactate (0.7-2.1) mmol/L Calcium 8.6 (8.4-10.2) mg/dL Total Bilirubin 0.5 (0.2-1.3) mg/dL AST 44 H (14-36) IU/L ALT 28 (<35) IU/L Alkaline Phosphatase 117 (38-126) U/L Total Creatine Kinase 741 H (30-135) U/L CK-MB (CK-2) 10.90 H (<2.37) ng/mL CK-MB (CK-2) Rel Index 1.5 (1.5-5.0) % Troponin I < 0.012 (0.01-0.034) ng/mL NT-Pro-B Natriuret Pep (<125) pg/mL Total Protein 6.7 (6.3-8.2) g/dL Albumin 3.8 (3.5-5.0) g/dL Globulin 2.9 (1.7-4.1) g/dL Albumin/Globulin Ratio 1.3 (1.0-2.8) Lipase 34 (23-300) U/L U Opiates 300ng/mL cut (Negative) Ur Oxycodone Screen (Negative) Urine Methadone Screen (Negative) Ur Barbiturates Screen (Negative) U Tricyclic Antidepress (Negative) Ur Phencyclidine Scrn (Negative) Ur Amphetamines Screen (Negative) U Methamphetamines Scrn (Negative) Ur MDMA Scrn (Ecstasy) (Negative) U Benzodiazepines Scrn (Negative) Urine Cocaine Screen (Negative) U Marijuana (THC) Screen (Negative) Ethyl Alcohol ( - 10) mg/dL COVID-19 PCR Negative (Negative) 02/26/20 02/26/20 02/26/20 Range/Units 17:35 17:35 17:35 WBC (4.5-11.0) X10^3/uL RBC (4.0-5.2) X10^6/uL Hgb (12.0-16.0) g/dL Hct (36-46) % MCV (80-100) fL MCH (26-34) PG MCHC (30-36) % RDW (11.6-14.8) % Plt Count (150-400) X10^3/uL Neut % (Auto) (50-75) % Lymph % (Auto) (25-40) % [place] % (Auto) (3-14) % Eos % (Auto) (2-4) % Baso % (Auto) (0-2) % Neut # (Auto) (4322-6035) /uL Lymph # (Auto) (9853-7660) /uL [place] # (Auto) (0-900) /uL Eos # (Auto) (0-450) /uL Baso # (Auto) (0-100) /uL Sodium (137-145) mmol/L Potassium (3.4-5.1) mmol/L Chloride (98-107) mmol/L Carbon Dioxide (22-32) mmol/L BUN (7-17) mg/dL Creatinine (0.52-1.04) mg/dL Estimated GFR (>60) mL/min BUN/Creatinine Ratio (6-22) Glucose (70-100) mg/dL Lactate 1.3 (0.7-2.1) mmol/L Calcium (8.4-10.2) mg/dL Total Bilirubin (0.2-1.3) mg/dL AST (14-36) IU/L ALT (<35) IU/L Alkaline Phosphatase (38-126) U/L Total Creatine Kinase (30-135) U/L CK-MB (CK-2) (<2.37) ng/mL CK-MB (CK-2) Rel Index (1.5-5.0) % Troponin I (0.01-0.034) ng/mL NT-Pro-B Natriuret Pep 85 (<125) pg/mL Total Protein (6.3-8.2) g/dL Albumin (3.5-5.0) g/dL Globulin (1.7-4.1) g/dL Albumin/Globulin Ratio (1.0-2.8) Lipase (23-300) U/L U Opiates 300ng/mL cut (Negative) Ur Oxycodone Screen (Negative) Urine Methadone Screen (Negative) Ur Barbiturates Screen (Negative) U Tricyclic Antidepress (Negative) Ur Phencyclidine Scrn (Negative) Ur Amphetamines Screen (Negative) U Methamphetamines Scrn (Negative) Ur MDMA Scrn (Ecstasy) (Negative) U Benzodiazepines Scrn (Negative) Urine Cocaine Screen (Negative) U Marijuana (THC) Screen (Negative) Ethyl Alcohol < 10 ( - 10) mg/dL COVID-19 PCR (Negative) 02/26/20 02/26/20 Range/Units 20:15 20:30 WBC (4.5-11.0) X10^3/uL RBC (4.0-5.2) X10^6/uL Hgb (12.0-16.0) g/dL Hct (36-46) % MCV (80-100) fL MCH (26-34) PG MCHC (30-36) % RDW (11.6-14.8) % Plt Count (150-400) X10^3/uL Neut % (Auto) (50-75) % Lymph % (Auto) (25-40) % [place] % (Auto) (3-14) % Eos % (Auto) (2-4) % Baso % (Auto) (0-2) % Neut # (Auto) (1363-0974) /uL Lymph # (Auto) (3970-0897) /uL [place] # (Auto) (0-900) /uL Eos # (Auto) (0-450) /uL Baso # (Auto) (0-100) /uL Sodium (137-145) mmol/L Potassium (3.4-5.1) mmol/L Chloride (98-107) mmol/L Carbon Dioxide (22-32) mmol/L BUN (7-17) mg/dL Creatinine (0.52-1.04) mg/dL Estimated GFR (>60) mL/min BUN/Creatinine Ratio (6-22) Glucose (70-100) mg/dL Lactate (0.7-2.1) mmol/L Calcium (8.4-10.2) mg/dL Total Bilirubin (0.2-1.3) mg/dL AST (14-36) IU/L ALT (<35) IU/L Alkaline Phosphatase (38-126) U/L Total Creatine Kinase 646 H (30-135) U/L CK-MB (CK-2) 9.38 H (<2.37) ng/mL CK-MB (CK-2) Rel Index 1.5 (1.5-5.0) % Troponin I < 0.012 (0.01-0.034) ng/mL NT-Pro-B Natriuret Pep (<125) pg/mL Total Protein (6.3-8.2) g/dL Albumin (3.5-5.0) g/dL Globulin (1.7-4.1) g/dL Albumin/Globulin Ratio (1.0-2.8) Lipase (23-300) U/L U Opiates 300ng/mL cut Positive H (Negative) Ur Oxycodone Screen Negative (Negative) Urine Methadone Screen Negative (Negative) Ur Barbiturates Screen Negative (Negative) U Tricyclic Antidepress Positive H (Negative) Ur Phencyclidine Scrn Negative (Negative) Ur Amphetamines Screen Negative (Negative) U Methamphetamines Scrn Negative (Negative) Ur MDMA Scrn (Ecstasy) Negative (Negative) U Benzodiazepines Scrn Negative (Negative) Urine Cocaine Screen Negative (Negative) U Marijuana (THC) Screen Negative (Negative) Ethyl Alcohol ( - 10) mg/dL COVID-19 PCR (Negative) Point of Care Testing Test Results Negative Urine Dip Bedside Urine Glucose Negative Bedside Urine Bilirubin - Negative Bedside Urine Ketone - Negative Urine Specific Sprague 1.015 Bedside Urine Occult Blood - Negative Bedside Urine pH 6.0 Bedside Urine Protein - Negative Bedside Urine Urobilinogen - Negative Bedside Urine Nitrite - Negative Bedside Urine Leukocytes - Negative Esterase Imaging Data Chest x-ray: Radiologist's Impression: [address] [place] [id number] XRay Report Signed Patient: Alina Pal LMR#: [id number] : 1980Acct:[id number] Age/Sex: 39 / FDate of Service: 02/26/20 Loc: ED Accession Number: [id number] Procedure: XR chest 1V Ordering Provider: Karely Ceballos D.O. PROCEDURE: XR CHEST 1V INDICATIONS: syncope TECHNIQUE: One view of the chest was acquired. COMPARISON: Located Within [facility], , XR CHEST 1 VIEW, 10/06/2019, 2:24. Located Within [facility], CR, XR CHEST 1 VIEW, 10/05/2019, 9:12. Located Within [facility], CR, XR CHEST 1 VIEW, 10/03/2019, 20:00. [facility], CT, CT HEAD/BRAIN WO CON, 02/26/2020, 17:01. [facility], CT, CT CERVICAL SPINE WO CON, 02/26/2020, 17:01. [facility], CR, XR CHEST 1V, 08/17/2019, 18:06. FINDINGS: Surgical changes and devices: None. Lungs and pleura: Lungs are clear. No pleural effusions or pneumothorax. Mediastinum: Mediastinal contours appear normal. Heart size is normal. Bones and chest wall: No suspicious bony lesions. Overlying soft tissues appear unremarkable. IMPRESSION: No significant portable chest abnormality is seen. Dictated by: Dallin Umanzor M.D. on 02/26/2020 at 16:31 Approved by: Dallin Umanzor M.D. on 02/26/2020 at 16:35 CT scan - head: Radiologist's Impression: [address] [place] [address] CT Scan Report Signed Patient: Alina Pal LMR#: [id number] : 1980Acct:[id number] Age/Sex: 39 / FDate of Service: 02/26/20 Loc: ED Accession Number: [id number] Procedure: CT head/brain wo con Ordering Provider: Karely Ceballos D.O. PROCEDURE: CT HEAD/BRAIN WO CON INDICATIONS: syncope TECHNIQUE: Noncontrast 4.5 mm thick angled axial sections acquired from the foramen magnum to the vertex, with coronal and sagittal reformats. For radiation dose reduction, the following was used: automated exposure control, adjustment of mA and/or kV according to patient size. COMPARISON: [facility], MR, BRAIN WITHOUT CONTRAST, 11/24/2008, 17:19. [facility], CT, HEAD WITHOUT CONTRAST, 08/14/2016, 0:16. [facility], CT, CT HEAD/BRAIN W CON, 01/15/2018, 15:33. [facility], CT, CT HEAD/BRAIN WO CON, 10/03/2019, 12:30. [facility], CT, CT CERVICAL SPINE WO CON, 02/26/2020, 17:01. [facility], CR, XR CHEST 1V, 02/26/2020, 17:01. [facility], CT, CT HEAD/BRAIN WO CON, 11/07/2019, 4:18. FINDINGS: Image quality: Diagnostic CSF spaces: Basal cisterns are patent. No extra-axial fluid collections. Ventricles are normal in size and shape. Brain: No midline shift. No intracranial masses or hemorrhage. Stiener-white matter interface is normal. Skull and face: Calvarium and visualized facial bones are intact, without suspicious lesions. Sinuses: Visualized sinuses and mastoids are clear. IMPRESSION: Unremarkable intracranial study, stable from priors. Dictated by: Dallin Umanzor M.D. on 02/26/2020 at 16:36 Approved by: Dallin Umanzor M.D. on 02/26/2020 at 16:37 CT - cervical spine: Radiologist's Impression: [address] [place] [address] CT Scan Report Signed Patient: Alina Pal LMR#: [id number] : 1980Acct:[id number] Age/Sex: 39 / FDate of Service: 02/26/20 Loc: ED Accession Number: [id number] Procedure: CT cervical spine wo con Ordering Provider: Karely Ceballos D.O. PROCEDURE: CT CERVICAL SPINE WO CON INDICATIONS: syncope neck pain TECHNIQUE: Noncontrast 3 mm thick sections acquired from the skull base to the T4 level. Sagittal and coronal reformats were then constructed. For radiation dose reduction, the following was used: automated exposure control, adjustment of mA and/or kV according to patient size. COMPARISON: [facility], CT, SOFT TISSUE NECK W CONTRAST, 11/24/2015, 8:45. [facility], CT, CT HEAD/BRAIN WO CON, 02/26/2020, 17:01. [facility], CR, XR CHEST 1V, 02/26/2020, 17:01. [facility], CT, CT CERVICAL SPINE WO CON, 10/03/2019, 12:30. FINDINGS: Image quality: This study is limited by body habitus. Bones: No fractures or dislocations. Visualized superior ribs are intact. Soft tissues: Prevertebral soft tissues are normal in thickness. No paravertebral hematomas. No apical pneumothoraces. IMPRESSION: Negative for acute fracture. Dictated by: Dallin Umanzor M.D. on 02/26/2020 at 16:38 Approved by: Dallin Umanzor M.D. on 02/26/2020 at 16:39 ECG Data Attestation: I personally reviewed and interpreted this ECG as follows: Interpretation: normal sinus rhythm. Ventricular rate 70. P.r. interval 132. QRS 96. Viewed by Dr Ceballos MDM Narrative Medical decision making narrative: The patient is a 39-year-old female who presents with a chief complaint of near syncopal event where she landed on her stomach and complains of neck pain. She has negative head CT, negative C-spine CT, normal chest x-ray. She does have a history of rhabdomyolysis, has two relatively normal sets of cardiac enzymes several hours apart, of total CK, 741 down to 646. EKG with no acute findings. The patient does appear significantly dehydrated on exam, not making tears with very dry mucous membranes. He takes 2 L of IV fluid to get a urine sample from her. I discussed that given this exam and history with her history of getting weak and dizzy while standing up from a chair, she could have had an issue with orthostatic hypotension. I encouraged rest and pushing fluids. Patient does raise concern of possible seizure activity however there is no evidence of this today and she has a normal head CT. I encouraged her to follow up with primary care provider in the next few days and come back to the ER for any acute concerns. Discussed case, presentation, and plan with Ruba. I discussed no driving or operating heavy machinery until she is cleared by her PCP. Discussed at length coming back to the ER for any acute concerns such as chest pain shortness of breath etcetera. Patient is able to ambulate with a steady gait and a walker as per home prior to discharge. No questions or concerns upon discharge. States understanding return precautions as well as follow-up care. <Eugene Philip MD - Last Filed: 02/26/20 22:30> Lab Data Labs: Lab Results 02/26/20 02/26/20 02/26/20 Range/Units 17:33 17:35 17:35 WBC 9.2 (4.5-11.0) X10^3/uL RBC 4.30 (4.0-5.2) X10^6/uL Hgb 12.2 (12.0-16.0) g/dL Hct 37.2 (36-46) % MCV 86.5 (80-100) fL MCH 28.4 (26-34) PG MCHC 32.8 (30-36) % RDW 16.0 H (11.6-14.8) % Plt Count 267 (150-400) X10^3/uL Neut % (Auto) 71.6 (50-75) % Lymph % (Auto) 16.8 L (25-40) % [place] % (Auto) 7.0 (3-14) % Eos % (Auto) 4.0 (2-4) % Baso % (Auto) 0.6 (0-2) % Neut # (Auto) 6600 (0124-2253) /uL Lymph # (Auto) 1600 (4088-2887) /uL [place] # (Auto) 600 (0-900) /uL Eos # (Auto) 400 (0-450) /uL Baso # (Auto) 100 (0-100) /uL Sodium 140 (137-145) mmol/L Potassium 3.9 (3.4-5.1) mmol/L Chloride 105 (98-107) mmol/L Carbon Dioxide 30 (22-32) mmol/L BUN 10 (7-17) mg/dL Creatinine 0.76 (0.52-1.04) mg/dL Estimated GFR > 60.0 (>60) mL/min BUN/Creatinine Ratio 13.2 (6-22) Glucose 113 H (70-100) mg/dL Lactate (0.7-2.1) mmol/L Calcium 8.6 (8.4-10.2) mg/dL Total Bilirubin 0.5 (0.2-1.3) mg/dL AST 44 H (14-36) IU/L ALT 28 (<35) IU/L Alkaline Phosphatase 117 (38-126) U/L Total Creatine Kinase 741 H (30-135) U/L CK-MB (CK-2) 10.90 H (<2.37) ng/mL CK-MB (CK-2) Rel Index 1.5 (1.5-5.0) % Troponin I < 0.012 (0.01-0.034) ng/mL NT-Pro-B Natriuret Pep (<125) pg/mL Total Protein 6.7 (6.3-8.2) g/dL Albumin 3.8 (3.5-5.0) g/dL Globulin 2.9 (1.7-4.1) g/dL Albumin/Globulin Ratio 1.3 (1.0-2.8) Lipase 34 (23-300) U/L U Opiates 300ng/mL cut (Negative) Ur Oxycodone Screen (Negative) Urine Methadone Screen (Negative) Ur Barbiturates Screen (Negative) U Tricyclic Antidepress (Negative) Ur Phencyclidine Scrn (Negative) Ur Amphetamines Screen (Negative) U Methamphetamines Scrn (Negative) Ur MDMA Scrn (Ecstasy) (Negative) U Benzodiazepines Scrn (Negative) Urine Cocaine Screen (Negative) U Marijuana (THC) Screen (Negative) Ethyl Alcohol ( - 10) mg/dL COVID-19 PCR Negative (Negative) 02/26/20 02/26/20 02/26/20 Range/Units 17:35 17:35 17:35 WBC (4.5-11.0) X10^3/uL RBC (4.0-5.2) X10^6/uL Hgb (12.0-16.0) g/dL Hct (36-46) % MCV (80-100) fL MCH (26-34) PG MCHC (30-36) % RDW (11.6-14.8) % Plt Count (150-400) X10^3/uL Neut % (Auto) (50-75) % Lymph % (Auto) (25-40) % [place] % (Auto) (3-14) % Eos % (Auto) (2-4) % Baso % (Auto) (0-2) % Neut # (Auto) (7494-9060) /uL Lymph # (Auto) (1664-7231) /uL [place] # (Auto) (0-900) /uL Eos # (Auto) (0-450) /uL Baso # (Auto) (0-100) /uL Sodium (137-145) mmol/L Potassium (3.4-5.1) mmol/L Chloride (98-107) mmol/L Carbon Dioxide (22-32) mmol/L BUN (7-17) mg/dL Creatinine (0.52-1.04) mg/dL Estimated GFR (>60) mL/min BUN/Creatinine Ratio (6-22) Glucose (70-100) mg/dL Lactate 1.3 (0.7-2.1) mmol/L Calcium (8.4-10.2) mg/dL Total Bilirubin (0.2-1.3) mg/dL AST (14-36) IU/L ALT (<35) IU/L Alkaline Phosphatase (38-126) U/L Total Creatine Kinase (30-135) U/L CK-MB (CK-2) (<2.37) ng/mL CK-MB (CK-2) Rel Index (1.5-5.0) % Troponin I (0.01-0.034) ng/mL NT-Pro-B Natriuret Pep 85 (<125) pg/mL Total Protein (6.3-8.2) g/dL Albumin (3.5-5.0) g/dL Globulin (1.7-4.1) g/dL Albumin/Globulin Ratio (1.0-2.8) Lipase (23-300) U/L U Opiates 300ng/mL cut (Negative) Ur Oxycodone Screen (Negative) Urine Methadone Screen (Negative) Ur Barbiturates Screen (Negative) U Tricyclic Antidepress (Negative) Ur Phencyclidine Scrn (Negative) Ur Amphetamines Screen (Negative) U Methamphetamines Scrn (Negative) Ur MDMA Scrn (Ecstasy) (Negative) U Benzodiazepines Scrn (Negative) Urine Cocaine Screen (Negative) U Marijuana (THC) Screen (Negative) Ethyl Alcohol < 10 ( - 10) mg/dL COVID-19 PCR (Negative) 02/26/20 02/26/20 Range/Units 20:15 20:30 WBC (4.5-11.0) X10^3/uL RBC (4.0-5.2) X10^6/uL Hgb (12.0-16.0) g/dL Hct (36-46) % MCV (80-100) fL MCH (26-34) PG MCHC (30-36) % RDW (11.6-14.8) % Plt Count (150-400) X10^3/uL Neut % (Auto) (50-75) % Lymph % (Auto) (25-40) % [place] % (Auto) (3-14) % Eos % (Auto) (2-4) % Baso % (Auto) (0-2) % Neut # (Auto) (7162-2237) /uL Lymph # (Auto) (3247-1081) /uL [place] # (Auto) (0-900) /uL Eos # (Auto) (0-450) /uL Baso # (Auto) (0-100) /uL Sodium (137-145) mmol/L Potassium (3.4-5.1) mmol/L Chloride (98-107) mmol/L Carbon Dioxide (22-32) mmol/L BUN (7-17) mg/dL Creatinine (0.52-1.04) mg/dL Estimated GFR (>60) mL/min BUN/Creatinine Ratio (6-22) Glucose (70-100) mg/dL Lactate (0.7-2.1) mmol/L Calcium (8.4-10.2) mg/dL Total Bilirubin (0.2-1.3) mg/dL AST (14-36) IU/L ALT (<35) IU/L Alkaline Phosphatase (38-126) U/L Total Creatine Kinase 646 H (30-135) U/L CK-MB (CK-2) 9.38 H (<2.37) ng/mL CK-MB (CK-2) Rel Index 1.5 (1.5-5.0) % Troponin I < 0.012 (0.01-0.034) ng/mL NT-Pro-B Natriuret Pep (<125) pg/mL Total Protein (6.3-8.2) g/dL Albumin (3.5-5.0) g/dL Globulin (1.7-4.1) g/dL Albumin/Globulin Ratio (1.0-2.8) Lipase (23-300) U/L U Opiates 300ng/mL cut Positive H (Negative) Ur Oxycodone Screen Negative (Negative) Urine Methadone Screen Negative (Negative) Ur Barbiturates Screen Negative (Negative) U Tricyclic Antidepress Positive H (Negative) Ur Phencyclidine Scrn Negative (Negative) Ur Amphetamines Screen Negative (Negative) U Methamphetamines Scrn Negative (Negative) Ur MDMA Scrn (Ecstasy) Negative (Negative) U Benzodiazepines Scrn Negative (Negative) Urine Cocaine Screen Negative (Negative) U Marijuana (THC) Screen Negative (Negative) Ethyl Alcohol ( - 10) mg/dL COVID-19 PCR (Negative) Point of Care Testing Test Results Negative Urine Dip Bedside Urine Glucose Negative Bedside Urine Bilirubin - Negative Bedside Urine Ketone - Negative Urine Specific [place] 1.015 Bedside Urine Occult Blood - Negative Bedside Urine pH 6.0 Bedside Urine Protein - Negative Bedside Urine Urobilinogen - Negative Bedside Urine Nitrite - Negative Bedside Urine Leukocytes - Negative Esterase Discharge Plan Departure Patient Disposition: Home Clinical Impression: Near syncope, Dehydration, Neck pain, Fall from ground level Discharge Date/Time: 02/26/20 21:21 Instructions: DI for Syncope in Adults (Fainting), DI for Dehydration -- Adult, How to Prevent Falls, DI for Neck Pain Activity Restrictions/Additional Instructions: Thank you for trusting us with your care today. As discussed, your head CT, neck CT, chest x-ray lab work and urinalysis came back with no significant acute findings. However on exam your very dehydrated. Please be sure to push non alcoholic non caffeinated fluids. Please follow-up with primary care provider in the next few days. As discussed please do not drive or operate heavy machinery until you are cleared by your primary care provider Please come back to the emergency department for any acute concerns. Prescriptions: No Action albuterol sulfate 2.5 mg /3 mL (0.083 %) solution for nebulization 2.5 mg INHALATION Q4-6H PRN (Reason: bronchospasm) Qty: 90 RF: 0 acyclovir 400 mg tablet 400 mg PO TID Qty: 30 RF: 0 bupropion HCl 150 mg tablet extended release 24 hr 150 mg PO QAM Qty: 30 RF: 1 duloxetine 60 mg capsule,delayed release(DR/EC) 60 mg PO DAILY Qty: 30 RF: 2 pregabalin 200 mg capsule 200 mg PO BID Qty: 60 RF: 1 amitriptyline 75 mg tablet 150 mg PO BEDTIME Qty: 60 RF: 2 tizanidine 4 mg tablet 4 mg PO TIDP PRN (Reason: muscle spasticity) Qty: 90 RF: 2 oxycodone-acetaminophen 5-325 mg tablet 1 tab PO Q6H PRN (Reason: pain) Qty: 120 RF: 0 (DME) inhalational spacing device [[employer] A[employer]ol [place] Enhancer] spacer See Dose Instructions .ROUTE .MEDSUPPLY Qty: 1 RF: 0 Ventolin HFA 90 mcg/actuation HFA aerosol inhaler 2 puff INHALATION Q4HP PRN (Reason: shortness of breath or wheezing) Qty: 1 RF: 5 quetiapine 25 mg tablet 12.5 mg PO BID PRN (Reason: anxiety) Qty: 60 RF: 0 metoprolol tartrate 25 mg tablet 25 mg PO BID Qty: 60 RF: 1 ipratropium-albuterol 0.5 mg-3 mg(2.5 mg base)/3 mL solution for nebulization 3 ml INHALATION Q4H PRN (Reason: shortness of breath or wheezing) Qty: 180 RF: 0 levothyroxine 112 mcg tablet 112 mcg PO DAILY Qty: 90 RF: 3 Referrals: Rebeca Meyer DO [Primary Care Provider] - <Eugene Philip MD - Last Filed: 02/26/20 22:30> Cosign ED Attending Cosignature Attestation: I was immediately available in the department for consultation. This documentation has been reviewed and I agree with assessment and plan. Supervised by Eugene Philip MD
[2020-02-26] MEDS: KETOROLAC 60 MG/2 ML VIAL 30 MG IV (19:40)
[2020-02-26 20:31] LABS: Creatine Kinase 646 U/L (30-135)
[2020-02-26 20:43] LABS: Troponin I < 0.012 ng/mL (0.01-0.034)
[2020-02-26 20:46] LABS: CKMB % Relative Index 1.5 % (1.5-5.0); Creatine Kinase MB 9.38 ng/mL (<2.37)
[2020-02-26 20:53] LABS: Ur Creatinine 20 (Normal); Ur Specific Gravity 1.025 (Normal); Urine pH 5 (Normal)
[2020-02-26 20:55] LABS: Urine Tetrahydrocannabinol Negative (Negative)
[2020-02-26 20:56] LABS: UR Morphine/Opiate cutoff 300 Positive (Negative); Urine Amphetamines Negative (Negative); Urine Cocaine Negative (Negative); Urine Methamphetamines Negative (Negative); Urine Phencyclidine Negative (Negative)
[2020-02-26 20:58] LABS: Urine Barbiturates Negative (Negative); Urine Benzodiazepines Negative (Negative); Urine MDMA Negative (Negative); Urine Methadone Negative (Negative); Urine Tricyclic Antidepressant Positive (Negative)
[2020-02-26 20:59] LABS: Urine Oxycodone Negative (Negative)
[2020-02-26] MEDS: LIDOCAINE PATCH 1 EACH ADH..PATCH TOP (21:09)
== END 2020-02-26 21:21 | disposition home or self-care (01) ==
PROVIDERS: Emergency Medicine; Emergency Provider Nurse Practitioner Family; Family Provider Family Medicine; PCP Family Medicine
DX: R55 Syncope and collapse (principal); M54.2 Cervicalgia; E86.0 Dehydration; W19.XXXA Unspecified fall, initial encounter
CPT/HCPCS: 36415; 70450; 71045; 72125; 80053; 80305; 80320; 81003; 81025; 82550; 82553; 83605; 83690; 83880; 84484; 85025; 87635; 93005; 93010; 96361; 96374; 99284; 99285; J1885

== ENCOUNTER 2020-02-28 00:20 | Observation (INO) | payer OTHER, MEDICAID, SELFPAY ==
[2019-12-06 14:40] VITALS: BMI 46.3
[2020-02-28] VITALS (17 sets, daily range): BP systolic 149–197; BP diastolic 82–105; PULSE 83–114; RESP 14–28; TEMP 35.6–37.4; O2SAT 89–97; BMI 49.8; BMI 52.0
--- NOTE | 2020-02-28 00:28 | DI.RAD.S_ITS ---
PROCEDURE: XR CHEST 1V INDICATIONS: Dyspnea TECHNIQUE: One view of the chest was acquired. COMPARISON: [facility], CR, XR CHEST 1 VIEW, 10/07/2019, 11:25. [facility], CR, XR CHEST 1V, 02/26/2020, 17:01. FINDINGS: Surgical changes and devices: None. Lungs and pleura: Patchy opacities noted in the lungs bilaterally left greater than right suspicious for multilobar pneumonia. No pleural effusions or pneumothorax. Mediastinum: Mediastinal contours appear normal. Heart size is normal. Bones and chest wall: No suspicious bony lesions. Overlying soft tissues appear unremarkable. IMPRESSION: Patchy bilateral lung opacities suspicious for multilobar pneumonia. Dictated by: Ainsley Kidd MD, PhD on 02/28/2020 at 8:00 Approved by: Ainsley Kidd MD, PhD on 02/28/2020 at 8:07
[2020-02-28] MEDS: ALBUTEROL/IPRATROPIUM 3 ML AMPUL INH ×2 (00:30→10:04)
--- NOTE | 2020-02-28 00:30 | ED.SOB ---
HPI - SOB/Dyspnea General Chief Complaint: Shortness of Breath/Dyspnea Stated Complaint: Asthma Exacerbation Time Seen by Provider: 02/28/20 00:26 Source: patient and EMS Mode of arrival: EMS History of Present Illness HPI Narrative: Patient brought in by ambulance for complaints of asthma exacerbation/dyspnea. Received 2 nebulizers prior to arrival. Patient has been using home inhaler without improvement. Patient seen here for syncope yesterday. Asthma exacerbation start today. Has not improved with home medications. History of hospitalizations in the past. Seen at [facility] this year for rhabdomyolysis and developed pulmonary edema requiring diuresis. Coronavirus test yesterday was negative Related Data Home Medications Medication Instructions Recorded Confirmed acyclovir 400 mg PO TID PRN 02/28/20 02/28/20 Previous Rx's Medication Instructions Recorded tizanidine 4 mg tablet 4 mg PO TIDP PRN #90 tab 04/22/16 inhalational spacing device #1 each 02/05/18 ipratropium 0.5 mg-albuterol 3 mg 3 ml INHALATION Q4H PRN #180 ml 06/26/18 (2.5 mg base)/3 mL nebulization soln albuterol sulfate 2.5 mg INHALATION Q4-6H PRN #90 ml 06/02/19 levothyroxine 112 mcg tablet 112 mcg PO DAILY #90 tab 10/01/19 albuterol sulfate 90 mcg/actuation 2 puff INHALATION Q4HP PRN #1 each 10/29/19 aerosol inhaler bupropion HCl 150 mg 24 hr tablet, 150 mg PO QAM #30 tab 11/08/19 extended release quetiapine 25 mg tablet 12.5 mg PO BID PRN #60 tab 11/12/19 metoprolol tartrate 25 mg tablet 25 mg PO BID #60 tab 11/26/19 duloxetine 60 mg capsule,delayed 60 mg PO DAILY #30 cap 01/14/20 release pregabalin 200 mg capsule 200 mg PO BID #60 cap 01/25/20 amitriptyline 75 mg tablet 150 mg PO BEDTIME #60 tab 01/27/20 oxycodone-acetaminophen 5 mg-325 1 tab PO Q6H PRN #120 tab 02/15/20 mg tablet Allergies Allergy/AdvReac Type Severity Reaction Status Date / Time Penicillins [PENICILLINS] Allergy Unknown Verified 10/26/20 03:23 fluconazole [From DIFLUCAN] AdvReac Intermediate vomiting Verified 02/28/20 03:23 and abd pain codeine [CODEINE] AdvReac Mild NAUSEA Verified 02/28/20 03:23 Review of Systems Review of Systems Narrative: GENERAL: Denies chills, fatigue, malaise, fever, sweats. HEENT: Denies sinus pain, ear pain, sore throat, difficulty swallowing RESPIRATORY: Complains dyspnea, cough CARDIOVASCULAR: Denies chest pain, palpitations, edema, GASTROINTESTINAL: Denies nausea, vomiting, abdominal pain, diarrhea, constipation, melena. : Denies dysuria, frequency, hematuria MUSCULOSKELETAL: denies muscle or bony pain SKIN: Denies rash, skin lesions NEUROLOGIC: Denies weakness, headache, numbness, change in speech, confusion PSYCHIATRIC: No SI or HI or hallucinations ROS Unobtainable: All systems reviewed & are unremarkable except as noted in HPI and below Patient History Medical History (Updated 02/28/20 @ 04:06 by ISRRAEL Aragon) Asthma (Chronic) Depression (Chronic) Diverticular disease (Chronic ~2015) Essential hypertension (Acute) Fibromyalgia (Chronic ~05/2017) Gestational diabetes mellitus (GDM) (Inactive 10/27/14) History of PCR DNA positive for HSV1 (Inactive ~2014) Hypothyroidism (Chronic ~2008) Irritable bowel syndrome (Chronic) Lymphedema of arm (Acute) Major depressive disorder (Acute) Migraines (Chronic) Obstructive sleep apnea on CPAP (Acute) Rheumatoid arthritis (Chronic) Upper extremity somatic dysfunction (Acute) Surgical History Status post delivery (12/30/14) Status post laparoscopic supracervical hysterectomy (10/23/15) Status post laparoscopy (01/19/16) Status post surgery (07/07/12) Status post tubal ligation (12/30/14) Family History Grandmother Stroke Grandfather Heart disease Cancer Father Hypertension Social History household members: spouse and children Smoking Status: Current some day smoker alcohol intake: current Smoking Status: Current some day smoker alcohol intake frequency: a few times a week Substance Use Type: marijuana Exam Narrative Exam Narrative: GENERAL: patient appears stated age. Well-nourished, well-developed patient, in no distress, not toxic not dyspneic HEAD: Normocephalic. EYES: Pupils equal round and reactive. No scleral icterus. No injection no discharge ENT: Mucous membranes moist. No drooling no tongue elevation no trismus no malocclusion NECK: Trachea midline. Non tender CARDIOVASCULAR: Tachycardic Regular rate and rhythm without murmurs, gallops, or rubs. RESPIRATORY: Breath sounds equal bilaterally. There is bilateral wheezes, mild rales, and rhonchi. Able to pause and does speak full sentences GASTROINTESTINAL: Abdomen soft, non-tender, nondistended. EXTREMITIES: No gross deformities. BACK: Nontender without deformity or crepitance. No flank tenderness. NEURO: AOx4. SKIN: Warm and dry PSYCH: Not anxious, is cooperative Initial Vital Signs Initial Vital Signs: Vital Signs Temperature 99.3 F 02/28/20 00:26 Pulse Rate 114 H 02/28/20 00:26 Respiratory Rate 28 H 02/28/20 00:26 Blood Pressure 197/104 H 02/28/20 00:26 Pulse Oximetry 96 02/28/20 00:26 Course Course Course Narrative: Tolerating continuous breathing treatments with improvement Decision to Admit Date: 02/28/20 Decision to Admit time: 02:45 Orders Ordered: ED Orders 02/28/20 Urinalysis and Microscopic Routine 02/28/20 00:26 Consult to Respiratory Therapy Evaluate & Treat EKG-12 Lead Stat 02/28/20 00:28 XR chest 1V Stat 02/28/20 00:32 Basic Metabolic Panel Routine Complete Blood Count AUTO DIFF Routine Complete Blood Count AUTO DIFF Stat Comprehensive Metabolic Panel Stat Lactate (Lactic Acid) Stat Magnesium Stat NT-proBNP (BNP-Adult 18+) Stat Partial Thromboplastin Time Stat Procalcitonin Stat Prothrombin Time INR Stat Troponin & CK Cardiac Panel Stat 02/28/20 00:56 Arterial Blood Gas Stat 02/28/20 01:20 CT angio chest PE protocol Stat 02/28/20 02:53 Education, smoking cessation ONGOING 02/28/20 02:58 Consult to Dietitian, Adult Routine Consult to Discharge Planning Routine 02/28/20 02:59 Consult to Respiratory Therapy Evaluate & Treat Acetaminophen (Tylenol) 650 mg PO Q6HR PRN PRN Reason: Fever/Mild Pain (1-3) Al Hydrox/Mg Hydrox/Simethicone (Maalox Plus) 30 ml PO Q6HR PRN PRN Reason: Dyspepsia Albuterol (Ventolin) 2.5 mg INH [id number] PRN PRN Reason: Shortness Of Breath Last Admin: 02/28/20 05:26 Dose: 2.5 mg Documented by: [email or web address] Albuterol/Ipratropium (Duoneb) 3 ml INH RTBID [facility] Amitriptyline HCl (Elavil) 150 mg PO BEDTIME [facility] Bisacodyl (Dulcolax) 10 mg PO DAILY PRN PRN Reason: Constipation Bupropion HCl (Wellbutrin Xl) 150 mg PO DAILY [facility] Calcium Carbonate (Tums) 1,000 mg PO Q4HR PRN PRN Reason: Dyspepsia Dextrose (D50w) 25 gm IV PRN PRN; Protocol PRN Reason: Hypoglycemia Docusate Sodium (Colace) 100 mg PO BID PRN PRN Reason: Constipation Duloxetine HCl (Cymbalta) 60 mg PO DAILY [facility] Enoxaparin Sodium (Lovenox) 40 mg SUBCUT DAILY [facility] Ibuprofen (Advil) 600 mg PO Q6HR PRN PRN Reason: Fever/Mild Pain (1-3) Last Admin: 02/28/20 04:24 Dose: 600 mg Documented by: JANIS Insulin Aspart (Novolog Flexpen) 0 unit SUBCUT [facility]; Protocol Levothyroxine Sodium (Synthroid) 112 mcg PO QACBREAK [facility] Last Admin: 02/28/20 05:48 Dose: 112 mcg Documented by: JANIS Methylprednisolone (Solu-Medrol 125 Mg Vial) 60 mg IV Q12H [facility] Metoprolol Tartrate (Lopressor) 25 mg PO BID [facility] Naloxone HCl (Narcan) 0.2 mg IV Q2MIN PRN PRN Reason: Opiate Reversal Ondansetron HCl (Zofran) 4 mg IV Q8HR PRN PRN Reason: Nausea And Vomiting Pregabalin (Lyrica) 200 mg PO BID [facility] Sodium Chloride (Normal Saline 0.9% Flush) 10 ml IV PRN PRN PRN Reason: Flush Sodium Chloride (Normal Saline 0.9% Flush) 10 ml IV BID [facility] Tizanidine HCl (Zanaflex) 4 mg PO TID PRN PRN Reason: Muscle Spasticity Discontinued Medications Albuterol (Ventolin) 7.5 mg INH NOW ONE Stop: 02/28/20 00:32 Last Admin: 02/28/20 00:33 Dose: 7.5 mg Documented by: [email or web address] Albuterol (Ventolin) 10 mg INH NOW ONE Stop: 02/28/20 02:24 Last Admin: 02/28/20 02:28 Dose: 10 mg Documented by: [email or web address] Albuterol/Ipratropium (Duoneb) 3 ml INH NOW ONE Stop: 02/28/20 00:27 Last Admin: 02/28/20 00:30 Dose: 3 ml Documented by: [email or web address] Magnesium Sulfate (Magnesium Sulfate) 2 gm in 50 mls @ 25 mls/hr IV NOW ONE Stop: 02/28/20 02:25 Last Infusion: 02/28/20 02:48 Dose: 0 mls/hr Documented by: EMILY Cosigned by: АНДРЕЙ Admin: 02/28/20 00:43 Dose: 25 mls/hr Documented by: SIGIFREDO Cosigned by: TREY Sodium Chloride (Normal Saline 0.9%) 500 mls @ 1,000 mls/hr IV BOLUS ONE Stop: 02/28/20 01:49 Last Infusion: 02/28/20 03:44 Dose: 0 mls/hr Documented by: Admin: 02/28/20 01:49 Dose: 1,000 mls/hr Documented by: EMILY Methylprednisolone (Solu-Medrol 125 Mg Vial) 125 mg IV NOW ONE Stop: 02/28/20 00:27 Last Admin: 02/28/20 00:42 Dose: 125 mg Documented by: SIGIFREDO Methylprednisolone (Solu-Medrol 125 Mg Vial) 60 mg IV Q12H [facility] Last Admin: 02/28/20 03:43 Dose: Not Given Documented by: JANIS Reevaluation(s) Reevaluation #1: Patient states feels better than arrival time. Breathing treatments are helping as well as magnesium Time: 02:46 Consultations Consultation #1: Spoke with Garret, hospitalist will admit, no ICU criteria at this time Time: 02:46 Vital Signs Vital signs: Vital Signs - 8 hr 02/28/20 00:26 02/28/20 00:39 02/28/20 02:18 Temperature 99.3 F Pulse Rate 114 H 106 H 101 H Respiratory Rate 28 H 24 26 H Blood Pressure 197/104 H 167/96 H Pulse Oximetry 96 97 93 02/28/20 02:30 02/28/20 03:00 Temperature Pulse Rate 99 H 104 H Respiratory Rate 20 23 Blood Pressure 171/95 H 166/82 H Pulse Oximetry 90 L 93 MDM - SOB/Dyspnea Differential Diagnosis Differential diagnosis: Likely congestive heart failure, community acquired pneumonia, asthma with exacerbation and pulmonary embolism Medical Records Attestation: I reviewed the patient's medical records. Lab Data Attestation: I reviewed the patient's lab results. Result diagrams: 02/28/20 00:32 02/28/20 00:32 Labs: Lab Results 02/28/20 02/28/20 02/28/20 Range/Units 00:32 00:32 00:32 WBC 13.8 H (4.5-11.0) X10^3/uL RBC 4.42 (4.0-5.2) X10^6/uL Hgb 12.6 (12.0-16.0) g/dL Hct 38.1 (36-46) % MCV 86.2 (80-100) fL MCH 28.5 (26-34) PG MCHC 33.0 (30-36) % RDW 16.1 H (11.6-14.8) % Plt Count 234 (150-400) X10^3/uL Neut % (Auto) 89.1 H (50-75) % Lymph % (Auto) 4.6 L (25-40) % [place] % (Auto) 5.3 (3-14) % Eos % (Auto) 0.8 L (2-4) % Baso % (Auto) 0.2 (0-2) % Neut # (Auto) 19886 H (0405-4700) /uL Lymph # (Auto) 600 L (9938-1820) /uL [place] # (Auto) 700 (0-900) /uL Eos # (Auto) 100 (0-450) /uL Baso # (Auto) 0 (0-100) /uL PT 11.4 (10.1-12.7) SECONDS INR 1.0 (0.9-1.3) APTT 32 D (26.4-36.2) SECONDS ABG pH (7.35-7.45) ABG pCO2 (35-45) mmHg ABG pO2 (80-100) mmHg ABG HCO3 (22-26) mmol/L ABG Total CO2 (21-31) mmol/L ABG O2 Saturation (95-100) % ABG Base Excess (-2-2) mmol/L FiO2 Sodium (137-145) mmol/L Potassium (3.4-5.1) mmol/L Chloride (98-107) mmol/L Carbon Dioxide (22-32) mmol/L BUN (7-17) mg/dL Creatinine (0.52-1.04) mg/dL Estimated GFR (>60) mL/min BUN/Creatinine Ratio (6-22) Glucose (70-100) mg/dL Lactate (0.7-2.1) mmol/L Calcium (8.4-10.2) mg/dL Magnesium 1.8 (1.6-2.3) mg/dL Total Bilirubin (0.2-1.3) mg/dL AST (14-36) IU/L ALT (<35) IU/L Alkaline Phosphatase (38-126) U/L Total Creatine Kinase 383 H D (30-135) U/L CK-MB (CK-2) 3.40 H (<2.37) ng/mL CK-MB (CK-2) Rel Index 0.9 L (1.5-5.0) % Troponin I < 0.012 (0.01-0.034) ng/mL NT-Pro-B Natriuret Pep 296 H (<125) pg/mL Total Protein (6.3-8.2) g/dL Albumin (3.5-5.0) g/dL Globulin (1.7-4.1) g/dL Albumin/Globulin Ratio (1.0-2.8) Procalcitonin (<0.5) ng/mL TSH (0.47-4.68) uIU/mL Free T4 (0.78-2.19) ng/dL 02/28/20 02/28/20 02/28/20 Range/Units 00:32 00:32 00:32 WBC (4.5-11.0) X10^3/uL RBC (4.0-5.2) X10^6/uL Hgb (12.0-16.0) g/dL Hct (36-46) % MCV (80-100) fL MCH (26-34) PG MCHC (30-36) % RDW (11.6-14.8) % Plt Count (150-400) X10^3/uL Neut % (Auto) (50-75) % Lymph % (Auto) (25-40) % [place] % (Auto) (3-14) % Eos % (Auto) (2-4) % Baso % (Auto) (0-2) % Neut # (Auto) (0061-6137) /uL Lymph # (Auto) (5807-0176) /uL [place] # (Auto) (0-900) /uL Eos # (Auto) (0-450) /uL Baso # (Auto) (0-100) /uL PT (10.1-12.7) SECONDS INR (0.9-1.3) APTT (26.4-36.2) SECONDS ABG pH (7.35-7.45) ABG pCO2 (35-45) mmHg ABG pO2 (80-100) mmHg ABG HCO3 (22-26) mmol/L ABG Total CO2 (21-31) mmol/L ABG O2 Saturation (95-100) % ABG Base Excess (-2-2) mmol/L FiO2 Sodium 142 (137-145) mmol/L Potassium 3.6 (3.4-5.1) mmol/L Chloride 105 (98-107) mmol/L Carbon Dioxide 32 (22-32) mmol/L BUN 6 L (7-17) mg/dL Creatinine 0.83 (0.52-1.04) mg/dL Estimated GFR > 60.0 (>60) mL/min BUN/Creatinine Ratio 7.2 (6-22) Glucose 136 H (70-100) mg/dL Lactate 1.5 (0.7-2.1) mmol/L Calcium 9.9 (8.4-10.2) mg/dL Magnesium (1.6-2.3) mg/dL Total Bilirubin 0.4 (0.2-1.3) mg/dL AST 49 H (14-36) IU/L ALT 33 (<35) IU/L Alkaline Phosphatase 129 H (38-126) U/L Total Creatine Kinase (30-135) U/L CK-MB (CK-2) (<2.37) ng/mL CK-MB (CK-2) Rel Index (1.5-5.0) % Troponin I (0.01-0.034) ng/mL NT-Pro-B Natriuret Pep (<125) pg/mL Total Protein 7.6 (6.3-8.2) g/dL Albumin 4.3 (3.5-5.0) g/dL Globulin 3.3 (1.7-4.1) g/dL Albumin/Globulin Ratio 1.3 (1.0-2.8) Procalcitonin < 0.05 (<0.5) ng/mL TSH (0.47-4.68) uIU/mL Free T4 (0.78-2.19) ng/dL 02/28/20 02/28/20 02/28/20 Range/Units 00:32 00:32 00:32 WBC 13.5 H (4.5-11.0) X10^3/uL RBC 4.54 (4.0-5.2) X10^6/uL Hgb 13.1 (12.0-16.0) g/dL Hct 39.5 (36-46) % MCV 86.8 (80-100) fL MCH 28.8 (26-34) PG MCHC 33.2 (30-36) % RDW 15.8 H (11.6-14.8) % Plt Count 245 (150-400) X10^3/uL Neut % (Auto) 96.9 H (50-75) % Lymph % (Auto) 1.8 L (25-40) % [place] % (Auto) 1.2 L (3-14) % Eos % (Auto) 0.1 L (2-4) % Baso % (Auto) 0.0 (0-2) % Neut # (Auto) 56397 H (2860-2619) /uL Lymph # (Auto) 200 L (0867-3991) /uL [place] # (Auto) 200 (0-900) /uL Eos # (Auto) 0 (0-450) /uL Baso # (Auto) 0 (0-100) /uL PT (10.1-12.7) SECONDS INR (0.9-1.3) APTT (26.4-36.2) SECONDS ABG pH (7.35-7.45) ABG pCO2 (35-45) mmHg ABG pO2 (80-100) mmHg ABG HCO3 (22-26) mmol/L ABG Total CO2 (21-31) mmol/L ABG O2 Saturation (95-100) % ABG Base Excess (-2-2) mmol/L FiO2 Sodium 140 (137-145) mmol/L Potassium 3.6 (3.4-5.1) mmol/L Chloride 102 (98-107) mmol/L Carbon Dioxide 30 (22-32) mmol/L BUN 7 (7-17) mg/dL Creatinine 0.76 (0.52-1.04) mg/dL Estimated GFR > 60.0 (>60) mL/min BUN/Creatinine Ratio 9.2 (6-22) Glucose 245 H D (70-100) mg/dL Lactate (0.7-2.1) mmol/L Calcium 9.5 (8.4-10.2) mg/dL Magnesium (1.6-2.3) mg/dL Total Bilirubin (0.2-1.3) mg/dL AST (14-36) IU/L ALT (<35) IU/L Alkaline Phosphatase (38-126) U/L Total Creatine Kinase (30-135) U/L CK-MB (CK-2) (<2.37) ng/mL CK-MB (CK-2) Rel Index (1.5-5.0) % Troponin I (0.01-0.034) ng/mL NT-Pro-B Natriuret Pep (<125) pg/mL Total Protein (6.3-8.2) g/dL Albumin (3.5-5.0) g/dL Globulin (1.7-4.1) g/dL Albumin/Globulin Ratio (1.0-2.8) Procalcitonin < 0.05 (<0.5) ng/mL TSH (0.47-4.68) uIU/mL Free T4 (0.78-2.19) ng/dL 02/28/20 02/28/20 Range/Units 00:32 00:56 WBC (4.5-11.0) X10^3/uL RBC (4.0-5.2) X10^6/uL Hgb (12.0-16.0) g/dL Hct (36-46) % MCV (80-100) fL MCH (26-34) PG MCHC (30-36) % RDW (11.6-14.8) % Plt Count (150-400) X10^3/uL Neut % (Auto) (50-75) % Lymph % (Auto) (25-40) % [place] % (Auto) (3-14) % Eos % (Auto) (2-4) % Baso % (Auto) (0-2) % Neut # (Auto) (8077-3998) /uL Lymph # (Auto) (7743-6107) /uL [place] # (Auto) (0-900) /uL Eos # (Auto) (0-450) /uL Baso # (Auto) (0-100) /uL PT (10.1-12.7) SECONDS INR (0.9-1.3) APTT (26.4-36.2) SECONDS ABG pH 7.40 (7.35-7.45) ABG pCO2 50.5 H (35-45) mmHg ABG pO2 62 L (80-100) mmHg ABG HCO3 32 H (22-26) mmol/L ABG Total CO2 33 H (21-31) mmol/L ABG O2 Saturation 91 L (95-100) % ABG Base Excess 7.0 H (-2-2) mmol/L FiO2 21 Sodium (137-145) mmol/L Potassium (3.4-5.1) mmol/L Chloride (98-107) mmol/L Carbon Dioxide (22-32) mmol/L BUN (7-17) mg/dL Creatinine (0.52-1.04) mg/dL Estimated GFR (>60) mL/min BUN/Creatinine Ratio (6-22) Glucose (70-100) mg/dL Lactate (0.7-2.1) mmol/L Calcium (8.4-10.2) mg/dL Magnesium (1.6-2.3) mg/dL Total Bilirubin (0.2-1.3) mg/dL AST (14-36) IU/L ALT (<35) IU/L Alkaline Phosphatase (38-126) U/L Total Creatine Kinase (30-135) U/L CK-MB (CK-2) (<2.37) ng/mL CK-MB (CK-2) Rel Index (1.5-5.0) % Troponin I (0.01-0.034) ng/mL NT-Pro-B Natriuret Pep (<125) pg/mL Total Protein (6.3-8.2) g/dL Albumin (3.5-5.0) g/dL Globulin (1.7-4.1) g/dL Albumin/Globulin Ratio (1.0-2.8) Procalcitonin (<0.5) ng/mL TSH 6.48 H (0.47-4.68) uIU/mL Free T4 0.88 (0.78-2.19) ng/dL Imaging Data Chest x-ray: Attestation: I personally reviewed and interpreted this imaging study as follows: My Impression: Increased pulmonary markings left upper lobe and right perihilar CT scan - chest: Radiologist's Impression: No pulmonary embolism, mild patchy peripheral bilateral subpleural patchy opacities nonspecific ECG Data Attestation: I personally reviewed and interpreted this ECG as follows: Interpretation: Sinus tachycardia rate 106, incomplete right bundle-branch block no ST elevation depression MDM Narrative Medical decision making narrative: Appropriate for admission. Multiple DuoNebs given. Critical Care Time Critical Care Time Critical Care Time: Yes Total Critical Care Time: 30 Attestation: Critical Care Time 30 minutes: Requiring multiple treatments/nebulizers. Maintaining 90% with 3 L nasal cannula Critical care time is separate from other billable procedures. This critical care time includes consultation with family and other consulting doctors, review of records, and interpretation of data from labs, EKGs, imaging, etc. Discharge Plan Departure Patient Disposition: Admitted as Observation Clinical Impression: Asthma with exacerbation Qualifiers: Asthma severity: moderate Asthma persistence: persistent Qualified Code(s): J45.41 - Moderate persistent asthma with (acute) exacerbation Discharge Date/Time: 02/28/20 03:46 Referrals: Rebeca Meyer DO [Primary Care Provider] - Admit Date/Time: 02/28/20 03:00 Admit Provider: Eric Talbert
[2020-02-28] MEDS: ALBUTEROL 2.5 MG/3 ML NEB (ADULT) 7.5 MG INH (00:33)
[2020-02-28] MEDS: methylPREDNISolone 125 MG/2 ML VIAL IV (00:42)
[2020-02-28 00:43] LABS: Add Manual Diff / Slide Review NO; Basophils Absolute Auto 0 /uL (0-100); Basophils Percent Auto 0.2 % (0-2); Eosinophils Absolute Auto 100 /uL (0-450); Eosinophils Percent Auto 0.8 % (2-4); Hematocrit 38.1 % (36-46); Hemoglobin 12.6 g/dL (12.0-16.0); Lymphocytes Absolute Auto 600 /uL (1100-4500); Lymphocytes Percent Auto 4.6 % (25-40); Mean Corpuscular Hemoglobin 28.5 PG (26-34); Mean Corpuscular Volume 86.2 fL (80-100); Monocytes Absolute Auto 700 /uL (0-900); Monocytes Percent Auto 5.3 % (3-14); Neutrophils Absolute Auto 12300 /uL (1500-7000); Neutrophils Percent Auto 89.1 % (50-75); Platelet Count 234 X10^3/uL (150-400); Red Blood Cell Count 4.42 X10^6/uL (4.0-5.2); Red Cell Distribution Width 16.1 % (11.6-14.8); White Blood Cell Count 13.8 X10^3/uL (4.5-11.0)
[2020-02-28] MEDS: MAGNESIUM SULFATE 2 GM/50 ML PIGGYBACK IV (00:43)
[2020-02-28 00:46] LABS: Prothrombin Time 11.4 SECONDS (10.1-12.7)
[2020-02-28 00:49] LABS: PTT Partial Thromboplastin Tim 32 SECONDS (26.4-36.2)
[2020-02-28 00:52] LABS: Lactate (Lactic Acid) 1.5 mmol/L (0.7-2.1)
[2020-02-28 00:54] LABS: Creatine Kinase 383 U/L (30-135); Magnesium 1.8 mg/dL (1.6-2.3)
[2020-02-28 00:55] LABS: Alanine Aminotransferase 33 IU/L (<35); Albumin 4.3 g/dL (3.5-5.0); Albumin Globulin Ratio 1.3 (1.0-2.8); Alkaline Phosphatase 129 U/L (38-126); Aspartate Aminotransferase 49 IU/L (14-36); BUN Creatinine Ratio 7.2 (6-22); Bilirubin Total 0.4 mg/dL (0.2-1.3); Blood Urea Nitrogen 6 mg/dL (7-17); Calcium 9.9 mg/dL (8.4-10.2); Carbon Dioxide 32 mmol/L (22-32); Chloride 105 mmol/L (98-107); Estimated Glomerular Filt Rate > 60.0 mL/min (>60); Globulin 3.3 g/dL (1.7-4.1); Glucose 136 mg/dL (70-100); HEMOLYSIS < 15 (0-50); Potassium 3.6 mmol/L (3.4-5.1); Sodium 142 mmol/L (137-145); Total Protein 7.6 g/dL (6.3-8.2)
[2020-02-28 01:06] LABS: NT-proBNP (BNP-Adult 18+) 296 pg/mL (<125); Troponin I < 0.012 ng/mL (0.01-0.034)
[2020-02-28 01:09] LABS: CKMB % Relative Index 0.9 % (1.5-5.0)
--- NOTE | 2020-02-28 01:20 | DI.CT.S_ITS ---
PROCEDURE: CT ANGIO CHEST PE PROTOCOL INDICATIONS: Dyspnea TECHNIQUE: After the administration of intravenous contrast, 2 mm thick sections acquired from the pulmonary apices to the posterior costophrenic angles. 3-dimensional maximum intensity projection (MIP) coronal and sagittal reformats were then acquired through the thorax. For radiation dose reduction, the following was used: automated exposure control, adjustment of mA and/or kV according to patient size. COMPARISON: None. FINDINGS: Image quality: Excellent. Pulmonary arteries: Pulmonary arteries are normal in size, and demonstrate no intraluminal filling defects to suggest central pulmonary embolism. Lungs and pleura: Patchy rounded ground-glass opacities and consolidation noted in the periphery of the lungs bilaterally with basilar predominance. No pleural effusions or pneumothorax. Central and peripheral airways are patent. Mediastinum: Heart size is normal, without pericardial effusion. Numerous prominent bilateral hilar and mediastinal lymph nodes are noted. Thoracic aorta is normal in caliber and enhancement. Esophagus is normal in caliber, without hiatal hernia. Bones and chest wall: No suspicious bony lesions. Ribs and thoracic spine appear intact throughout. Thyroid gland is within normal limits. No axillary or supraclavicular adenopathy. Abdomen: Visualized upper abdominal solid organs appear normal in the early arterial phase of enhancement. IMPRESSION: 1. No pulmonary embolus. 2. Patchy, peripheral bilateral lung base ground-glass opacities and consolidation concerning for pneumonia including atypical/viral pneumonia. 2. Numerous prominent bilateral hilar and mediastinal lymph nodes which could be neoplastic or reactive. Dictated by: Ainsley Kidd MD, PhD on 02/28/2020 at 7:23 Approved by: Ainsley Kidd MD, PhD on 02/28/2020 at 7:26
[2020-02-28] MEDS: SODIUM CHLORIDE 0.9% 500 ML 1000 ML IV (01:49)
[2020-02-28 01:52] LABS: Fractionated Inspired Oxygen 21; HCO3 ABG 32 mmol/L (22-26); Oxygen Saturation ABG 91 % (95-100); PCO2 ABG 50.5 mmHg (35-45); PO2 ABG 62 mmHg (80-100); TCO2 ABG 33 mmol/L (21-31)
[2020-02-28 02:14] LABS: Procalcitonin < 0.05 ng/mL (<0.5)
[2020-02-28] MEDS: ALBUTEROL 2.5 MG/3 ML NEB (ADULT) 10 MG INH (02:28)
--- NOTE | 2020-02-28 03:37 | PM.HP.1 ---
History of Present Illness History of Present Illness Date Patient Seen: 02/28/20 Time Patient Seen: 03:38 Chief complaint: Asthma Exacerbation Narrative: Ms. Alina Pal is a 39-year-old morbidly obese female who is a current smoker with a past medical history significant for asthma, hypertension, hypothyroidism, borderline diabetes, IBS, rheumatoid arthritis and fibromyalgia who presents to the ER with shortness of breath. The patient was seen in the emergency department yesterday for ground level fall secondary to a near syncopal episode and was discharged with diagnosis of dehydration. The patient states that she was short of breath at that time however her breath sounds were noted to be clear. The patient states that this morning she woke short of breath and through the morning used her inhaler which became ineffective and began using her nebulizer which also became ineffective prompting her to present to the emergency department for evaluation and treatment. The patient also complains of nasal congestion and dizziness, body aches and fevers. She describes chest tightness but no palpitations and has shortness of breath and wheezing and is able to speak freely. She states she had nausea earlier today with vomiting and dry heaving. She had 1 episode of diarrhea this morning. She denies urinary symptoms of frequency urgency or burning and has had no heart hematuria. Prior to arrival the patient received [id number] albuterol nebulizer treatments by EMS. Upon arrival in the ER the patient has a temperature 99.3?, tachycardic at 114, blood pressure is 197/104, respiratory rate is 28 saturating 96% on 3 L per minute nasal cannula. A chest x-ray is obtained remarkable for increased pulmonary markings, CT obtained which is negative for pulmonary embolus however identifies bilateral nonspecific opacities. Twelve lead EKG: Sinus tachycardia at 1:06 a.m. with incomplete right bundle branch block at 104 milliseconds, no ST, T-wave changes or evidence of infarct. An ABG is obtained which finds a pH of 7.40, pCO2 of 50.4, PO2 of 62, bicarb of 32 with a base excess of +7 on 21% FiO2. On laboratory analysis the patient has an elevated white count at 13.8 with increased neutrophils 89.1, hemoglobin of 12.6, hematocrit of 38.1 and platelets of 234. Her coagulation studies are all within normal limits. On chemistries are electrolytes are within normal range she has a BUN is 6 and a creatinine 0.83. Her nonfasting glucose is 136. She has a total bilirubin 0.4, AST of 49, ALT of 33 and alkaline phosphatase of 129. Her albumin is 4.3. Her total CK is 383, CK-MB is 3.40 with an index of 0.9. Her troponin is negative at less than 0.012. Her proBNP is slightly elevated at 296. She has lactic acid of 1.500 procalcitonin of less than 0.05. In the ER the patient has received 2 continues nebulizer treatments, DuoNeb treatment, magnesium sulfate 2 g IV and methylprednisolone 125 mg IV. The patient is admitted to the medicine service for asthma exacerbation. Patient History Medical History (Updated 02/28/20 @ 04:06 by ISRRAEL Aragon) Asthma (Chronic) Depression (Chronic) Diverticular disease (Chronic ~2015) Essential hypertension (Acute) Fibromyalgia (Chronic ~05/2017) Gestational diabetes mellitus (GDM) (Inactive 10/27/14) History of PCR DNA positive for HSV1 (Inactive ~2014) Hypothyroidism (Chronic ~2008) Irritable bowel syndrome (Chronic) Lymphedema of arm (Acute) Major depressive disorder (Acute) Migraines (Chronic) Obstructive sleep apnea on CPAP (Acute) Rheumatoid arthritis (Chronic) Upper extremity somatic dysfunction (Acute) Surgical History Status post delivery (12/30/14) Status post laparoscopic supracervical hysterectomy (10/23/15) Status post laparoscopy (01/19/16) Status post surgery (07/07/12) Status post tubal ligation (12/30/14) Family & Social History Family History Grandmother Stroke Grandfather Heart disease Cancer Father Hypertension Social History: household members spouse,children Safety & Behavioral: Feels Safe in Current Yes Environment Been Physically Hurt or No Threatened By a Person Tobacco & Substance use: Smoking Status Current some day smoker alcohol intake frequency a few times a week Substance Use Type marijuana Meds Home Medications and Allergies Home Medications Medication Instructions Recorded Confirmed Type tizanidine 4 mg tablet 4 mg PO TIDP PRN #90 tab 04/22/16 02/28/20 Rx inhalational spacing device #1 each 02/05/18 02/28/20 Rx ipratropium 0.5 mg-albuterol 3 mg 3 ml INHALATION Q4H PRN #180 ml 06/26/18 02/28/20 Rx (2.5 mg base)/3 mL nebulization soln albuterol sulfate 2.5 mg INHALATION Q4-6H PRN #90 ml 06/02/19 02/28/20 Rx levothyroxine 112 mcg tablet 112 mcg PO DAILY #90 tab 10/01/19 02/28/20 Rx albuterol sulfate 90 mcg/actuation 2 puff INHALATION Q4HP PRN #1 each 10/29/19 02/28/20 Rx aerosol inhaler bupropion HCl 150 mg 24 hr tablet, 150 mg PO QAM #30 tab 11/08/19 02/28/20 Rx extended release quetiapine 25 mg tablet 12.5 mg PO BID PRN #60 tab 11/12/19 02/28/20 Rx metoprolol tartrate 25 mg tablet 25 mg PO BID #60 tab 11/26/19 02/28/20 Rx duloxetine 60 mg capsule,delayed 60 mg PO DAILY #30 cap 01/14/20 02/28/20 Rx release pregabalin 200 mg capsule 200 mg PO BID #60 cap 01/25/20 02/28/20 Rx amitriptyline 75 mg tablet 150 mg PO BEDTIME #60 tab 01/27/20 02/28/20 Rx oxycodone-acetaminophen 5 mg-325 1 tab PO Q6H PRN #120 tab 02/15/20 02/28/20 Rx mg tablet acyclovir 400 mg PO TID PRN 02/28/20 02/28/20 History Allergies Allergy/AdvReac Type Severity Reaction Status Date / Time Penicillins [PENICILLINS] Allergy Unknown Verified 02/28/20 03:23 fluconazole [From DIFLUCAN] AdvReac Intermediate vomiting Verified 02/28/20 03:23 and abd pain codeine [CODEINE] AdvReac Mild NAUSEA Verified 02/28/20 03:23 Review of Systems Review of Systems ROS: Yes All systems reviewed with the patient and are negative except as otherwise documented Exam Vital Signs (past 8 hours): - 02/28/20 00:26 02/28/20 00:39 02/28/20 02:18 Temperature 99.3 F Pulse Rate 114 H 106 H 101 H Respiratory Rate 28 H 24 26 H Blood Pressure 197/104 H 167/96 H Pulse Oximetry 96 97 92 02/28/20 02:30 Temperature Pulse Rate 99 H Respiratory Rate 20 Blood Pressure Pulse Oximetry 94 Oxygen Delivery Method Nasal Cannula Oxygen Flow Rate 2 Narrative Exam Narrative: GENERAL APPEARANCE: well developed, morbidly obese with a BMI of 49.8 who is moderately ill-appearing with increased work of breathing. HEENT: Normocephalic, PERRLA, conjunctiva clear, EOMs intact without nystagmus, no sinus tenderness to percussion, clear rhinorrhea, mucous membranes are moist and pink. NECK/THYROID: neck supple, no JVD, no thyromegaly, trachea midline. LYMPH NODES: no cervical or supraclavicular lymphadenopathy. SKIN: [place], warm and diaphoretic, no visible lesions, rashes, ulcerations or petechiae. HEART: Tachycardic rate and rhythm, S1-S2, no murmur, no rubs or gallops, brisk capillary refill, trace edema LUNGS: Marked inspiratory and expiratory wheezing with central coarseness, nonproductive cough present CHEST: Symmetrical movement, no accessory muscle use, good tidal volume. ABDOMEN: Soft, protuberant and obese, nontender to palpation, no organomegaly the exam is limited by body habitus, no flank or suprapubic tenderness, active bowel tones. BACK: Normal curvature, nontender to palpation. EXTREMITIES: moves all extremities, strength is 5/5 and symmetrical, no deformities or joint effusions. NEUROLOGIC: AAO x3, no focal neurologic deficits, cranial nerves II-XII grossly intact, sensation intact to light touch, hearing grossly normal to speech. PSYCH: Good eye contact, cooperative, appropriate with stable behavior, denies depression Objective Labs Result Diagrams: 02/28/20 00:32 02/28/20 00:32 Labs: Laboratory Results - last 24 hr 02/28/20 02/28/20 02/28/20 00:32 00:32 00:32 WBC 13.8 H RBC 4.42 Hgb 12.6 Hct 38.1 MCV 86.2 MCH 28.5 MCHC 33.0 RDW 16.1 H Plt Count 234 Neut % (Auto) 89.1 H Lymph % (Auto) 4.6 L [place] % (Auto) 5.3 Eos % (Auto) 0.8 L Baso % (Auto) 0.2 Neut # (Auto) 66775 H Lymph # (Auto) 600 L [place] # (Auto) 700 Eos # (Auto) 100 Baso # (Auto) 0 PT 11.4 INR 1.0 APTT 32 D ABG pH ABG pCO2 ABG pO2 ABG HCO3 ABG Total CO2 ABG O2 Saturation ABG Base Excess FiO2 Sodium Potassium Chloride Carbon Dioxide BUN Creatinine Estimated GFR BUN/Creatinine Ratio Glucose Lactate Calcium Magnesium 1.8 Total Bilirubin AST ALT Alkaline Phosphatase Total Creatine Kinase 383 H D CK-MB (CK-2) 3.40 H CK-MB (CK-2) Rel Index 0.9 L Troponin I < 0.012 NT-Pro-B Natriuret Pep 296 H Total Protein Albumin Globulin Albumin/Globulin Ratio Procalcitonin 02/28/20 02/28/20 02/28/20 00:32 00:32 00:32 WBC RBC Hgb Hct MCV MCH MCHC RDW Plt Count Neut % (Auto) Lymph % (Auto) [place] % (Auto) Eos % (Auto) Baso % (Auto) Neut # (Auto) Lymph # (Auto) [place] # (Auto) Eos # (Auto) Baso # (Auto) PT INR APTT ABG pH ABG pCO2 ABG pO2 ABG HCO3 ABG Total CO2 ABG O2 Saturation ABG Base Excess FiO2 Sodium 142 Potassium 3.6 Chloride 105 Carbon Dioxide 32 BUN 6 L Creatinine 0.83 Estimated GFR > 60.0 BUN/Creatinine Ratio 7.2 Glucose 136 H Lactate 1.5 Calcium 9.9 Magnesium Total Bilirubin 0.4 AST 49 H ALT 33 Alkaline Phosphatase 129 H Total Creatine Kinase CK-MB (CK-2) CK-MB (CK-2) Rel Index Troponin I NT-Pro-B Natriuret Pep Total Protein 7.6 Albumin 4.3 Globulin 3.3 Albumin/Globulin Ratio 1.3 Procalcitonin < 0.05 02/28/20 00:56 WBC RBC Hgb Hct MCV MCH MCHC RDW Plt Count Neut % (Auto) Lymph % (Auto) [place] % (Auto) Eos % (Auto) Baso % (Auto) Neut # (Auto) Lymph # (Auto) [place] # (Auto) Eos # (Auto) Baso # (Auto) PT INR APTT ABG pH 7.40 ABG pCO2 50.5 H ABG pO2 62 L ABG HCO3 32 H ABG Total CO2 33 H ABG O2 Saturation 91 L ABG Base Excess 7.0 H FiO2 21 Sodium Potassium Chloride Carbon Dioxide BUN Creatinine Estimated GFR BUN/Creatinine Ratio Glucose Lactate Calcium Magnesium Total Bilirubin AST ALT Alkaline Phosphatase Total Creatine Kinase CK-MB (CK-2) CK-MB (CK-2) Rel Index Troponin I NT-Pro-B Natriuret Pep Total Protein Albumin Globulin Albumin/Globulin Ratio Procalcitonin Assessment & Plan Assessment & Plan narrative: This is a 39-year-old female who was presents to the ER with shortness of breath onset yesterday. Her symptoms were progressive after waking today initially uncontrolled with inhaler than uncontrolled with nebulizer with associated symptoms of body aches and fevers, nausea and vomiting and nasal congestion. 1. Acute respiratory failure with hypoxia and hypercarbia, present on admission, active -patient presents to the ER via EMS with respiratory rate of 28 breaths per minute saturating 96% on 3 L nasal cannula. -ABG finds a pH of 7.40, pCO2 of 50.4, PO2 of 62 bicarb of 32 with a base excess of +7 on 21% FiO2. PF ratio is 295. -asthma exacerbation believed to be triggered by probable viral infection, ordered respiratory panel stat. -will treat triggering etiology of possible in addition to management of acute asthma exacerbation as below. 2. Acute asthma exacerbation, present on admission, active -history of asthma previously admitted to the ICU but not intubated. The patient was seen in the ED yesterday for near syncope with fall and diagnosed with dehydration. That time breath sounds are noted to be clear and patient was afebrile. -patient with progressive symptoms over the course the day failing outpatient treatment with MDI and home neb treatment. -in the ED the patient received continuous albuterol nebulizer x2 as well as DuoNeb treatment. She also received magnesium 2 g and methylprednisolone 125 mg. -patient's respiratory status is improved though she remains markedly wheezy with coarseness. -will continue albuterol nebulizer treatments every 2 hours as needed and DuoNeb treatments twice daily. -ordered methylprednisolone 60 mg twice daily. -will recheck CBC, and procalcitonin, will obtain a respiratory panel. 3. Hypertension, chronic, stable -upon arrival to the ER the patient is markedly hypertensive of 197/104. -will continue home regimen of metoprolol tartrate 25 mg twice daily. -will trend blood pressures and modify therapy if indicated. 4. Hyperglycemia, borderline diabetes, chronic, stable -patient reports being borderline diabetic, last hemoglobin A1c on 01/31/2020 was 5.4. -on admission labs the patient had elevated glucose of 136. The patient is receiving steroid therapy in the course for treatment with expected increase in glycemic levels. -order fingerstick blood sugars a.c. and hs, coverage with low-dose correctional insulin. 5. Hypothyroidism, chronic, stable -will continue home regimen of levothyroxine 112 mg daily. -will check TSH with reflex to T4. 6. Depression, chronic, stable. -will continue home regimen of anti depressant medications. 7. Current smoker, chronic. -patient continues to smoke irritating her lungs and complicating her course of asthma. -provided teaching on smoking and asthma. -requests referral to respiratory therapy who in course of care will provide smoking education. 8. Super morbid obesity with BMI of 52.0, chronic. -patient with complications of of obesity with obstructive sleep apnea using CPAP, hyperglycemia and hypertension. -patient is on low constant carbohydrate diet. -requested dietitian consult. VTE prophylaxis: Enoxaparin IV fluid: Normal saline lock. Diet: Lobe constant carbohydrate Code status: Full code, the patient designates her showed to be her surrogate decision maker. The patient is admitted to the hospital for acute respiratory failure secondary to asthma exacerbation brought on by probable viral infection. The patient requires ongoing monitoring and medication treatments to prevent exacerbation, monitor for complications or adverse events. The patient is admitted as an inpatient with expected length of stay to be greater than 2 midnights. COVID-19 COVID-19 status: Negative Result date/Date tested (Pos, Neg/Pending): 02/26/20 Scores GCS [place] coma scale eye opening: Spontaneous [place] coma scale verbal response: Orientated [place] coma scale motor response: Obey commands Bernadette coma scale total score: 15
[2020-02-28] MEDS: IBUPROFEN 600 MG TABLET PO (04:24)
--- NOTE | 2020-02-28 05:18 | PC.ADMIT ---
Patient admitted to room 205 @ 0350 per stretcher from ER. States she was having asthma attack that was not being relieved with use of home nebulizer treatments. Is alert and oriented. Breath sounds with expiratory rhonchi and inspiratory wheezes. SOB at rest/with exertion. Frequent non productive cough. Oxygen at 2L/min per NC with sat of 93%. Has LEONEL but has been non compliant with use of CPAP. Placed on continuous oximetry. HRR but tachy at 101 bpm and BP elevated at 169/85. Denies nausea. BT present and abdomen is soft; does report having diarrhea stools 2 days ago. Denies dysuria, frequency or urgency with urination. Able to move self in bed and SBA when out of bed. Skin is moist, warm to touch. Bilateral calf SCD's applied. Reports having fallen recently so fall risk score is high and bed alarm is activated. Complains of 7/10 generalized discomfort so medicated with Ibuprofen. Currently on droplet precautions until respiratory panel resulted. Was COVID negative on 02/25. Oriented to call light and bed controls. [email or web address] Admission Note: The patient,Alina Pal,39 y/o, was given written information regarding hospital policies, unit procedures and contact persons. Patient's smoking status: Current some day smoker. Vital Signs - 8 hr 02/28/20 00:26 02/28/20 00:39 02/28/20 02:18 Temperature 99.3 F Pulse Rate 114 H 106 H 101 H Respiratory Rate 28 H 24 26 H Blood Pressure 197/104 H 167/96 H Pulse Oximetry 96 97 93 02/28/20 02:30 02/28/20 02:52 02/28/20 03:00 Temperature 96.1 F L Pulse Rate 99 H 98 H 104 H Respiratory Rate 20 20 23 Blood Pressure 171/95 H 162/101 H 166/82 H Pulse Oximetry 90 L 93 93 02/28/20 03:30 02/28/20 04:09 Temperature Pulse Rate 101 H Respiratory Rate 23 Blood Pressure 169/85 H Pulse Oximetry 90 L 93
[2020-02-28] MEDS: ALBUTEROL 2.5 MG/3 ML NEB (ADULT) INH ×2 (05:26→15:28)
[2020-02-28 05:48] LABS: Add Manual Diff / Slide Review NO; Basophils Absolute Auto 0 /uL (0-100); Eosinophils Absolute Auto 0 /uL (0-450); Eosinophils Percent Auto 0.1 % (2-4); Hematocrit 39.5 % (36-46); Hemoglobin 13.1 g/dL (12.0-16.0); Lymphocytes Absolute Auto 200 /uL (1100-4500); Lymphocytes Percent Auto 1.8 % (25-40); Mean Corpuscular HGB Conc 33.2 % (30-36); Mean Corpuscular Hemoglobin 28.8 PG (26-34); Mean Corpuscular Volume 86.8 fL (80-100); Monocytes Absolute Auto 200 /uL (0-900); Monocytes Percent Auto 1.2 % (3-14); Neutrophils Absolute Auto 13100 /uL (1500-7000); Neutrophils Percent Auto 96.9 % (50-75); Platelet Count 245 X10^3/uL (150-400); Red Blood Cell Count 4.54 X10^6/uL (4.0-5.2); Red Cell Distribution Width 15.8 % (11.6-14.8); White Blood Cell Count 13.5 X10^3/uL (4.5-11.0)
[2020-02-28] MEDS: LEVOTHYROXINE 112 MCG TABLET PO (05:48)
[2020-02-28 05:52] LABS: Adenovirus Not Detected (Not Detect); Bordetella pertussis Not Detected (Not Detect); Chlamydophila pneumoniae Not Detected (Not Detect); Coronavirus 229E Not Detected (Not Detect); Coronavirus HKU1 Not Detected (Not Detect); Coronavirus NL 63 Not Detected (Not Detect); Coronavirus OC43 Not Detected (Not Detect); Human Metapneumovirus Not Detected (Not Detect); Human Rhinovirus/Enterovirus Detected (Not Detect); Influenza A Not Detected (Not Detect); Influenza B Not Detected (Not Detect); Mycoplasma pneumoniae Not Detected (Not Detect); Parainfluenza Virus 1 Not Detected (Not Detect); Parainfluenza Virus 2 Not Detected (Not Detect); Parainfluenza Virus 3 Not Detected (Not Detect); Parainfluenza Virus 4 Not Detected (Not Detect); Respiratory Syncytial Virus Not Detected (Not Detect)
[2020-02-28 06:02] LABS: BUN Creatinine Ratio 9.2 (6-22); Blood Urea Nitrogen 7 mg/dL (7-17); Calcium 9.5 mg/dL (8.4-10.2); Carbon Dioxide 30 mmol/L (22-32); Chloride 102 mmol/L (98-107); Estimated Glomerular Filt Rate > 60.0 mL/min (>60); Glucose 245 mg/dL (70-100); HEMOLYSIS < 15 (0-50); Potassium 3.6 mmol/L (3.4-5.1); Sodium 140 mmol/L (137-145)
[2020-02-28 06:10] LABS: Procalcitonin < 0.05 ng/mL (<0.5)
[2020-02-28 06:21] LABS: TSH w/ Reflex to FT4 6.48 uIU/mL (0.47-4.68)
[2020-02-28 06:48] LABS: Free T4, Direct Thyroxine 0.88 ng/dL (0.78-2.19)
--- NOTE | 2020-02-28 08:07 | DI.ECHO.S_ITS ---
[facility]---------+ [facility] +---------+ : : [address] : : : : [id number] : : : : Phone: [phone]+ Echocardiogram Report + + :Name: TWIN INMAN Study Date: 02/28/2020 Height: 60 in : :[facility] Weight: 266 lb : : Gender: Female BSA: 2.1 m2 : :: 1980 Age: 39 yrs BP: 162/105 mmHg: :Reason For Study: SHORTNESS OF BREATH : :Ordering Physician: HOSPITALIST, : :REGINA Performed By: Nancy Mullins : :Referring: REID DAMICO : + + Interpretation Summary Borderline concentric left ventricular hypertrophy with ejection fraction 60- 65%. Diastolic parameters suggest a relaxation abnormality of the left ventricle, consistent with probable normal filling pressures. Mildly dilated left atrium. No significant valvular abnormality. Mildly enlarged ascending aorta. Comparison is made with the echocardiogram of 10/06/2019, there has been no signifcant change. Procedure: A two-dimensional transthoracic echocardiogram with color flow and Doppler was performed. The study quality was technically adequate. Comparison is made with the echocardiogram of 10/06/2019. The heart rate ranged between 84-102 bpm during the study. Left Ventricle: The left ventricle is normal in size. There is borderline concentric left ventricular hypertrophy. The ejection fraction is estimated to be 60-65%. There are no focal wall motion abnormalities. Diastolic parameters suggest a relaxation abnormality of the left ventricle, consistent with probable normal filling pressures. Right Ventricle: The right ventricle is normal in size and function. Atria: The left atrium is mildly dilated. Right atrial size is normal. There is no Doppler evidence for an interatrial shunt. Mitral Valve: The mitral valve leaflets appear mildly thickened, but open well. There is mild mitral annular calcification. There is trace mitral regurgitation. Aortic Valve: The aortic valve is trileaflet. The aortic valve opens well. There is no aortic valve stenosis. No aortic regurgitation is present. Tricuspid Valve: The tricuspid valve is normal in structure and function. There is mild tricuspid regurgitation. Pulmonary artery pressures cannot be estimated because of the lack of a measurable TR jet velocity but the IVC suggests a CVP of around 15 mmHg. Pulmonic Valve: The pulmonic valve is not well visualized. There is no pulmonic valvular regurgitation. Great Vessels: The aortic root is normal size. The ascending aorta is mildly enlarged. The IVC is dilated (diameter is greater than 2.1 cm) and it collapses less than 50% with a sniff. This suggests a high right atrial pressure of 15 mm Hg. Pericardium/ Pleura There is no pericardial effusion. There is no pleural effusion. MMode/2D Measurements & Calculations LVIDd: 5.3 cm LVOT diam: 2.2 cm LVIDs: 3.5 cm Ao root diam: 3.1 cm FS: 33.1 % asc Aorta Diam: 3.6 cm EPSS: 0.94 cm Ao Arch Diam (Prox Trans): 2.5 cm IVSd: 1.1 cm LVPWd: 1.1 cm LV eugene. diameter/BSA (cm/m^2): 2.5 LV sys. diameter/BSA (cm/m^2): 1.7 LA A2 area: 21.9 cm2 RA long axis: 5.4 cm LA A4 area: 23.1 cm2 RA area: 18.6 cm2 LA length (vol): 5.7 cm RA vol: 54.7 ml LA vol: 75.4 ml RA : 26.0 ml/m2 LA vol index: 35.8 ml/m2 IVC diam: 2.8 cm RVD1 (basal): 3.2 cm TAPSE: 2.4 cm Doppler Measurements & Calculations Ao V2 max: 146.9 cm/sec LVOT Max Luis: 113.0 cm/sec Ao V2 mean: 97.0 cm/sec LV V1 max P.1 mmHg Ao max P.6 mmHg LV V1 VTI: 21.8 cm Ao mean P.4 mmHg MELCHOR(I,D): 3.0 cm2 Ao V2 VTI: 26.6 cm MELCHOR(V,D): 2.8 cm2 sev ratio: 0.82 MELCHOR indexed to BSA (cm^2/m^2): 1.4 MV E max luis: 102.4 cm/sec PA V2 max: 85.6 cm/sec MV A max luis: 109.0 cm/sec PA V2 mean: 58.6 cm/sec MV E/A: 0.94 PA mean P.6 mmHg Med Peak E' Luis: 8.7 cm/sec PA pr(Accel): 27.6 mmHg E/E' med: 11.8 Lat Peak E' Luis: 6.8 cm/sec E/E' lat: 15.0 E/e' average: 13.4 MV dec time: 0.20 sec SV(LVOT): 80.2 ml Electronically signed by: Vladislav dial Reading Physician:02/28/2020 01:03 PM
[2020-02-28 09:01] LABS: Hemoglobin A1C% w Est Avg Glu 5.4 % (4.0-6.0)
[2020-02-28] MEDS: DULOXETINE 30 MG CAPSULE 60 MG PO (09:08)
[2020-02-28] MEDS: SODIUM CHLORIDE 0.9% FLUSH 10 ML IV ×2 (09:08→14:48)
[2020-02-28] MEDS: buPROPion XL 150 MG TAB PO (09:08)
[2020-02-28] MEDS: METOPROLOL IR 25 MG TABLET PO (09:08)
[2020-02-28] MEDS: PREGABALIN 50 MG CAPSULE 200 MG PO (09:08)
[2020-02-28] MEDS: ENOXAPARIN 40 MG/0.4 ML SYRINGE SUBCUT (09:08)
[2020-02-28] MEDS: INSULIN ASPART 100 UNIT/ML INSULN PEN SUBCUT ×2 (09:33→12:03)
[2020-02-28] MEDS: OXYCODONE/ACETAMINOPHEN 5/325 TABLET 1 TAB PO ×2 (09:51→15:19)
[2020-02-28] MEDS: TIZANIDINE 4 MG TABLET PO ×2 (11:08→15:19)
[2020-02-28] MEDS: FUROSEMIDE 20 MG TABLET PO (12:02)
--- NOTE | 2020-02-28 12:22 | PC.NURSE ---
morning urine from this shift was sitting too long prior to sending for accurate UA. Patient notified to call for next urge to urinate for sample. call light lola arce.
--- NOTE | 2020-02-28 14:10 | CM.DANOTE ---
Patient is a 39 year old female who was admitted on 02/28/20 for Asthma Exacerbation. [facility] for [facility] and her PCP is Dr. Meyer. EMR was reviewed. Per MD, pt with complex medical hx and admitted for respiratory failure hypoxia and positive for entero/rhino. Echo ordered and pending and RT working with pt on oxygen currently. SW met bedside with pt and explained role and pt confirms that she lives at home in [place] with her spouse and 4 kids (youngest in kindergarten) and is independent at baseline, drives, and not currently working. Pt states her father sandra is currently living with them and both spouse and BONILLA can assist if needed at d/c. Pt denies any hx of HH or SNF and preference is home today or tomorrow when her breathing is better and Echo results return. Pt states last year she was at [facility] for respiratory issues and ended up with Rhabdo and was admitted for a few days and ended up with pneumonia which took a while to recover from. Pt is established with the [facility] program for mental health support after an episode of suicidal ideation in May 2019 this year and some ETOH in the summer but works with Mell at [facility] clinic in the [facility] program for ongoing medication management and counseling. Pt does not anticipate any SW needs at d/c. Plan: SW to follow closely for Echo results and further RT towards determining if pt safe for d/c home today or tomorrow with family assist and any further identified needs. JOSÉ Harper Discharge Planning/Care Management CM Discharge Assessment Start: 02/28/20 14:01 Freq: Status: Active Protocol: Document 02/28/20 14:01 (Rec: 02/28/20 14:10 [email or web address]) Discharge Planning Assessment Assigned Data Processing Specialist JOSÉ Del Rio DPOA/Assigned Designee Name none, informally spouse Advance Directives? No Advance Directives on File No History Provided By Patient,Medical Record Has Patient been admitted in last 30 No days? Prior Living Arrangements House Household Members spouse,children Type of transporation used prior to Drives own vehicle admit Independent with ADL's Yes Is patient alert and oriented? Yes Caregiver for Another Yes: 4 children at home Community Services used prior to Respiratory Therapy admission: Barriers to Discharge No Discharge Plan Home Transportation Arrangement Spouse Referrals Initiated None needed Whiteboard Updated in Patient Room with Yes name and ext. # of Data Processing Specialist Review Status In Process Please Provide Date Initial DC 02/28/20 Assessment Was Performed Next Review Type Continued Stay Review
[2020-02-28] MEDS: methylPREDNISolone 125 MG/2 ML VIAL 60 MG IV (14:48)
--- NOTE | 2020-02-28 15:02 | P.DS_ITS ---
History of Present Illness History of Present Illness Date Patient Seen: 02/28/20 Time Patient Seen: 15:03 Chief complaint: Asthma Exacerbation Narrative: As per ISRRAEL Aragon: Ms. Alina Pal is a 39-year-old morbidly obese female who is a current smoker with a past medical history significant for asthma, hypertension, hypot hyroidism, borderline diabetes, IBS, rheumatoid arthritis and fibromyalgia who presents to the ER with shortness of breath. The patient was seen in the emergency department yesterday for ground level fall secondary to a near syncopal episode and was discharged with diagnosis of dehydration. The patient states that she was short of breath at that time however her breath sounds were noted to be clear. The patient states that this morning she woke short of breath and through the morning used her inhaler which became ineffective and began using her nebulizer which also became ineffective prompting her to present to the emergency department for evaluation and treatment. The patient also complains of nasal congestion and dizziness, body aches and fevers. She describes chest tightness but no palpitations and has shortness of breath and wheezing and is able to speak freely. She states she had nausea earlier today with vomiting and dry heaving. She had 1 episode of diarrhea this morning. She denies urinary symptoms of frequency urgency or burning and has had no heart hematuria. Prior to arrival the patient received [id number] albuterol nebulizer treatments by EMS. Upon arrival in the ER the patient has a temperature 99.3?, tachycardic at 114, blood pressure is 197/104, respiratory rate is 28 saturating 96% on 3 L per minute nasal cannula. A chest x-ray is obtained remarkable for increased pulmonary markings, CT obtained which is negative for pulmonary embolus however identifies bilateral nonspecific opacities. Twelve lead EKG: Sinus tachycardia at 1:06 a.m. with incomplete right bundle branch block at 104 milliseconds, no ST, T-wave changes or evidence of infarct. An ABG is obtained which finds a pH of 7.40, pCO2 of 50.4, PO2 of 62, bicarb of 32 with a base excess of +7 on 21% FiO2. On laboratory analysis the patient has an elevated white count at 13.8 with increased neutrophils 89.1, hemoglobin of 12.6, hematocrit of 38.1 and platelets of 234. Her coagulation studies are all within normal limits. On chemistries are electrolytes are within normal range she has a BUN is 6 and a creatinine 0.83. Her nonfasting glucose is 136. She has a total bilirubin 0.4, AST of 49, ALT of 33 and alkaline phosphatase of 129. Her albumin is 4.3. Her total CK is 383, CK-MB is 3.40 with an index of 0.9. Her troponin is negative at less than 0.012. Her proBNP is slightly elevated at 296. She has lactic acid of 1.500 procalcitonin of less than 0.05. In the ER the patient has received 2 continues nebulizer treatments, DuoNeb treatment, magnesium sulfate 2 g IV and methylprednisolone 125 mg IV. The patient is admitted to the medicine service for asthma exacerbation. Discharge Providers Provider Date of admission: 02/28/20 03:00 Discharge Date: 02/28/20 Primary care physician: Rebeca Meyer DO Consults: 02/28/20 00:26 Consult to Respiratory Therapy Evaluate & Treat Comment: Physician Instructions: Evaluate and treat 02/28/20 02:58 Consult to Dietitian, Adult Routine Comment: Reason For Exam: Morbid obesity, hyperglycemia Consult to Discharge Planning Routine Comment: 02/28/20 02:59 Consult to Respiratory Therapy Evaluate & Treat Comment: Acute asthma exacerbation Physician Instructions: Evaluate and treat Discharge provider: Eric Juarez DO Summary Hospital Course Discharge Diagnosis: 1. Acute respiratory failure with hypoxia and hypercarbia, present on admission, resolved 2. Acute asthma exacerbation, present on admission, active 3. Hypertension, chronic, stable 4. Hyperglycemia, borderline diabetes, chronic, stable 5. Hypothyroidism, chronic, stable 6. Depression, chronic, stable. 7. Current smoker, chronic. 8. Super morbid obesity with BMI of 52.0, chronic. 9. Respiratory tract infection with rhinovirus 10. Acute on chronic diastolic heart failure. Hospital Course: This is a 39-year-old female who presented to the ER with shortness of breath for 1 day. Her symptoms were progressive after waking initially uncontrolled with inhaler than uncontrolled with nebulizer with associated symptoms of body aches and fevers, nausea and vomiting and nasal congestion. Her respiratory panel was positive for rhino virus. She was initially requiring supplemental oxygen but improved quite rapidly with steroids. Her chest x-ray also appeared to be consistent with either viral pneumonia or possible vascular congestion. She had a prior admission to [facility] for diastolic heart failure. Her proBNP on admission was 296 but this can be falsely low in the setting of morbid obesity. She had an echocardiogram which revealed a normal ejection fraction but evidence of diastolic heart failure and borderline left ventricular hypertrophy. She was given a dose of Lasix with improvement in her symptoms as well. The afternoon after admission she was no longer on oxygen and was feeling well and was discharged home. She will continue on a prednisone taper as well as her usual metoprolol and have added furosemide 20 mg daily. Exam Vital Signs (past 8 hours): - 02/28/20 09:09 02/28/20 10:04 02/28/20 10:16 Temperature Pulse Rate 95 H 83 Respiratory Rate 14 Blood Pressure 162/105 H Pulse Oximetry 96 94 94 02/28/20 12:00 02/28/20 12:05 02/28/20 14:42 Temperature 97.9 F Pulse Rate 87 Respiratory Rate 16 Blood Pressure 149/94 H Pulse Oximetry 89 L 93 95 Oxygen Delivery Method Room Air Oxygen Flow Rate 2 Narrative Exam Narrative: GENERAL APPEARANCE: well developed, morbidly obese with a BMI of 49.8 who is moderately ill-appearing with increased work of breathing. HEENT: Normocephalic, PERRLA, conjunctiva clear, EOMs intact without nystagmus, no sinus tenderness to percussion, clear rhinorrhea, mucous membranes are moist and pink. NECK/THYROID: neck supple, no JVD, no thyromegaly, trachea midline. LYMPH NODES: no cervical or supraclavicular lymphadenopathy. SKIN: [place], warm and diaphoretic, no visible lesions, rashes, ulcerations or petechiae. HEART: Tachycardic rate and rhythm, S1-S2, no murmur, no rubs or gallops, brisk capillary refill, trace edema LUNGS: Marked inspiratory and expiratory wheezing with central coarseness, nonproductive cough present CHEST: Symmetrical movement, no accessory muscle use, good tidal volume. ABDOMEN: Soft, protuberant and obese, nontender to palpation, no organomegaly t he exam is limited by body habitus, no flank or suprapubic tenderness, active bowel tones. BACK: Normal curvature, nontender to palpation. EXTREMITIES: moves all extremities, strength is 5/5 and symmetrical, no deformities or joint effusions. NEUROLOGIC: AAO x3, no focal neurologic deficits, cranial nerves II-XII grossly intact, sensation intact to light touch, hearing grossly normal to speech. PSYCH: Good eye contact, cooperative, appropriate with stable behavior, denies depression Objective Labs Result Diagrams: 02/28/20 00:32 02/28/20 00:32 Labs: Laboratory Results - last 24 hr 02/28/20 02/28/20 02/28/20 00:32 00:32 00:32 WBC 13.8 H RBC 4.42 Hgb 12.6 Hct 38.1 MCV 86.2 MCH 28.5 MCHC 33.0 RDW 16.1 H Plt Count 234 Neut % (Auto) 89.1 H Lymph % (Auto) 4.6 L [place] % (Auto) 5.3 Eos % (Auto) 0.8 L Baso % (Auto) 0.2 Neut # (Auto) 44957 H Lymph # (Auto) 600 L [place] # (Auto) 700 Eos # (Auto) 100 Baso # (Auto) 0 PT 11.4 INR 1.0 APTT 32 D ABG pH ABG pCO2 ABG pO2 ABG HCO3 ABG Total CO2 ABG O2 Saturation ABG Base Excess FiO2 Sodium Potassium Chloride Carbon Dioxide BUN Creatinine Estimated GFR BUN/Creatinine Ratio Glucose Hemoglobin A1c Lactate Calcium Magnesium 1.8 Total Bilirubin AST ALT Alkaline Phosphatase Total Creatine Kinase 383 H D CK-MB (CK-2) 3.40 H CK-MB (CK-2) Rel Index 0.9 L Troponin I < 0.012 NT-Pro-B Natriuret Pep 296 H Total Protein Albumin Globulin Albumin/Globulin Ratio Procalcitonin TSH Free T4 Chlamy pneumoniae PCR Adenovirus (PCR) B.parapertussis DNA PCR Coronavirus OC43 (PCR) Coronavirus HKU1 (PCR) Coronavirus 229E (PCR) Coronavirus NL63 (PCR) Human Metapneumovir PCR Influenza Type A (PCR) Influenza Type B (PCR) M. pneumoniae (PCR) Parainfluenza 1 (PCR) Parainfluenza 2 (PCR) Parainfluenza 3 (PCR) Parainfluenza 4 (PCR) RSV (PCR) Entero/Rhino (PCR) 02/28/20 02/28/20 02/28/20 00:32 00:32 00:32 WBC RBC Hgb Hct MCV MCH MCHC RDW Plt Count Neut % (Auto) Lymph % (Auto) [place] % (Auto) Eos % (Auto) Baso % (Auto) Neut # (Auto) Lymph # (Auto) [place] # (Auto) Eos # (Auto) Baso # (Auto) PT INR APTT ABG pH ABG pCO2 ABG pO2 ABG HCO3 ABG Total CO2 ABG O2 Saturation ABG Base Excess FiO2 Sodium 142 Potassium 3.6 Chloride 105 Carbon Dioxide 32 BUN 6 L Creatinine 0.83 Estimated GFR > 60.0 BUN/Creatinine Ratio 7.2 Glucose 136 H Hemoglobin A1c Lactate 1.5 Calcium 9.9 Magnesium Total Bilirubin 0.4 AST 49 H ALT 33 Alkaline Phosphatase 129 H Total Creatine Kinase CK-MB (CK-2) CK-MB (CK-2) Rel Index Troponin I NT-Pro-B Natriuret Pep Total Protein 7.6 Albumin 4.3 Globulin 3.3 Albumin/Globulin Ratio 1.3 Procalcitonin < 0.05 TSH Free T4 Chlamy pneumoniae PCR Adenovirus (PCR) B.parapertussis DNA PCR Coronavirus OC43 (PCR) Coronavirus HKU1 (PCR) Coronavirus 229E (PCR) Coronavirus NL63 (PCR) Human Metapneumovir PCR Influenza Type A (PCR) Influenza Type B (PCR) M. pneumoniae (PCR) Parainfluenza 1 (PCR) Parainfluenza 2 (PCR) Parainfluenza 3 (PCR) Parainfluenza 4 (PCR) RSV (PCR) Entero/Rhino (PCR) 02/28/20 02/28/20 02/28/20 00:32 00:32 00:32 WBC 13.5 H RBC 4.54 Hgb 13.1 Hct 39.5 MCV 86.8 MCH 28.8 MCHC 33.2 RDW 15.8 H Plt Count 245 Neut % (Auto) 96.9 H Lymph % (Auto) 1.8 L [place] % (Auto) 1.2 L Eos % (Auto) 0.1 L Baso % (Auto) 0.0 Neut # (Auto) 95851 H Lymph # (Auto) 200 L [place] # (Auto) 200 Eos # (Auto) 0 Baso # (Auto) 0 PT INR APTT ABG pH ABG pCO2 ABG pO2 ABG HCO3 ABG Total CO2 ABG O2 Saturation ABG Base Excess FiO2 Sodium 140 Potassium 3.6 Chloride 102 Carbon Dioxide 30 BUN 7 Creatinine 0.76 Estimated GFR > 60.0 BUN/Creatinine Ratio 9.2 Glucose 245 H D Hemoglobin A1c Lactate Calcium 9.5 Magnesium Total Bilirubin AST ALT Alkaline Phosphatase Total Creatine Kinase CK-MB (CK-2) CK-MB (CK-2) Rel Index Troponin I NT-Pro-B Natriuret Pep Total Protein Albumin Globulin Albumin/Globulin Ratio Procalcitonin < 0.05 TSH Free T4 Chlamy pneumoniae PCR Adenovirus (PCR) B.parapertussis DNA PCR Coronavirus OC43 (PCR) Coronavirus HKU1 (PCR) Coronavirus 229E (PCR) Coronavirus NL63 (PCR) Human Metapneumovir PCR Influenza Type A (PCR) Influenza Type B (PCR) M. pneumoniae (PCR) Parainfluenza 1 (PCR) Parainfluenza 2 (PCR) Parainfluenza 3 (PCR) Parainfluenza 4 (PCR) RSV (PCR) Entero/Rhino (PCR) 02/28/20 02/28/20 02/28/20 00:32 00:32 00:56 WBC RBC Hgb Hct MCV MCH MCHC RDW Plt Count Neut % (Auto) Lymph % (Auto) [place] % (Auto) Eos % (Auto) Baso % (Auto) Neut # (Auto) Lymph # (Auto) [place] # (Auto) Eos # (Auto) Baso # (Auto) PT INR APTT ABG pH 7.40 ABG pCO2 50.5 H ABG pO2 62 L ABG HCO3 32 H ABG Total CO2 33 H ABG O2 Saturation 91 L ABG Base Excess 7.0 H FiO2 21 Sodium Potassium Chloride Carbon Dioxide BUN Creatinine Estimated GFR BUN/Creatinine Ratio Glucose Hemoglobin A1c 5.4 Lactate Calcium Magnesium Total Bilirubin AST ALT Alkaline Phosphatase Total Creatine Kinase CK-MB (CK-2) CK-MB (CK-2) Rel Index Troponin I NT-Pro-B Natriuret Pep Total Protein Albumin Globulin Albumin/Globulin Ratio Procalcitonin TSH 6.48 H Free T4 0.88 Chlamy pneumoniae PCR Adenovirus (PCR) B.parapertussis DNA PCR Coronavirus OC43 (PCR) Coronavirus HKU1 (PCR) Coronavirus 229E (PCR) Coronavirus NL63 (PCR) Human Metapneumovir PCR Influenza Type A (PCR) Influenza Type B (PCR) M. pneumoniae (PCR) Parainfluenza 1 (PCR) Parainfluenza 2 (PCR) Parainfluenza 3 (PCR) Parainfluenza 4 (PCR) RSV (PCR) Entero/Rhino (PCR) 02/28/20 03:55 WBC RBC Hgb Hct MCV MCH MCHC RDW Plt Count Neut % (Auto) Lymph % (Auto) [place] % (Auto) Eos % (Auto) Baso % (Auto) Neut # (Auto) Lymph # (Auto) [place] # (Auto) Eos # (Auto) Baso # (Auto) PT INR APTT ABG pH ABG pCO2 ABG pO2 ABG HCO3 ABG Total CO2 ABG O2 Saturation ABG Base Excess FiO2 Sodium Potassium Chloride Carbon Dioxide BUN Creatinine Estimated GFR BUN/Creatinine Ratio Glucose Hemoglobin A1c Lactate Calcium Magnesium Total Bilirubin AST ALT Alkaline Phosphatase Total Creatine Kinase CK-MB (CK-2) CK-MB (CK-2) Rel Index Troponin I NT-Pro-B Natriuret Pep Total Protein Albumin Globulin Albumin/Globulin Ratio Procalcitonin TSH Free T4 Chlamy pneumoniae PCR Not detected Adenovirus (PCR) Not detected B.parapertussis DNA PCR Not detected Coronavirus OC43 (PCR) Not detected Coronavirus HKU1 (PCR) Not detected Coronavirus 229E (PCR) Not detected Coronavirus NL63 (PCR) Not detected Human Metapneumovir PCR Not detected Influenza Type A (PCR) Not detected Influenza Type B (PCR) Not detected M. pneumoniae (PCR) Not detected Parainfluenza 1 (PCR) Not detected Parainfluenza 2 (PCR) Not detected Parainfluenza 3 (PCR) Not detected Parainfluenza 4 (PCR) Not detected RSV (PCR) Not detected Entero/Rhino (PCR) Detected H Discharge Plan Discharge Plan Patient Disposition: Home Provider Discharge Comment: You were admitted to the hospital with an asthma exacerbation, you were found to have rhinovirus ( a virus that causes the common cold). You had an echocardiogram that shows you may have what is called diastolic heart failure and are also being discharged on a diuretic. Please follow up with your primary care provider by early next week to check on your symptoms and review your medications. Discharge orders & Medications Prescriptions: New prednisone 20 mg tablet 40 mg PO DAILY 5 Days Qty: 10 RF: 0 furosemide 20 mg tablet 20 mg PO DAILY 30 Days Qty: 30 RF: 0 Continued albuterol sulfate 2.5 mg /3 mL (0.083 %) solution for nebulization 2.5 mg INHALATION Q4-6H PRN (Reason: bronchospasm) Qty: 90 RF: 0 bupropion HCl 150 mg tablet extended release 24 hr 150 mg PO QAM Qty: 30 RF: 1 duloxetine 60 mg capsule,delayed release(DR/EC) 60 mg PO DAILY Qty: 30 RF: 2 pregabalin 200 mg capsule 200 mg PO BID Qty: 60 RF: 1 amitriptyline 75 mg tablet 150 mg PO BEDTIME Qty: 60 RF: 2 tizanidine 4 mg tablet 4 mg PO TIDP PRN (Reason: muscle spasticity) Qty: 90 RF: 2 oxycodone-acetaminophen 5-325 mg tablet 1 tab PO Q6H PRN (Reason: pain) Qty: 120 RF: 0 quetiapine 25 mg tablet 12.5 mg PO BID PRN (Reason: anxiety) Qty: 60 RF: 0 (DME) inhalational spacing device [Timmy Aerosol [place] Enhancer] spacer See Dose Instructions .ROUTE .MEDSUPPLY Qty: 1 RF: 0 Ventolin HFA 90 mcg/actuation HFA aerosol inhaler 2 puff INHALATION Q4HP PRN (Reason: shortness of breath or wheezing) Qty: 1 RF: 5 metoprolol tartrate 25 mg tablet 25 mg PO BID Qty: 60 RF: 1 ipratropium-albuterol 0.5 mg-3 mg(2.5 mg base)/3 mL solution for nebulization 3 ml INHALATION Q4H PRN (Reason: shortness of breath or wheezing) Qty: 180 RF: 0 levothyroxine 112 mcg tablet 112 mcg PO DAILY Qty: 90 RF: 3 acyclovir 400 mg tablet 400 mg PO TID PRN (Reason: Cold Sores) RF: 0 Follow up/Referrals: Rebeca Meyer DO [Primary Care Provider] - Diet/Activity/Treatments Diet: Diet as Tolerated, Carb-consistent/Diabetic and Low-sodium Activity: As tolerated Visit Report/Discharge Packet Visit Report Forms: Patient Portal/API, Stroke Signs & Symptoms Discharge Data Primary Care Provider: Rebeca Meyer Discharges patient from system. Discharge Date/Time: 02/28/20 16:20
--- NOTE | 2020-02-28 16:14 | CM.MNRNOTE ---
Addendum entered by Rody Day R.N. 02/28/20 16:29: Pt arrived. Pt escorted by staff to waiting vehicle. D/C in stable condition. Original Note: Pt preparing for discharge home. Instructions given w/apparrent understanding HL right hand discontinued intact. Awaiting ride home
== END 2020-02-28 16:20 | disposition home or self-care (01) ==
LOC: ED 02:42 → AC 03:45
PROVIDERS: Internal Medicine; Admitting Provider Nurse Practitioner Adult Health; Emergency Provider Emergency Medicine; Family Provider Family Medicine; PCP Family Medicine; Visit Provider Nurse Practitioner Adult Health
DX: J96.01 Acute respiratory failure with hypoxia (principal); J96.02 Acute respiratory failure with hypercapnia; I50.33 Acute on chronic diastolic (congestive) heart failure; I11.0 Hypertensive heart disease with heart failure; J45.901 Unspecified asthma with (acute) exacerbation; E66.01 Morbid (severe) obesity due to excess calories; Z68.43 Body mass index [BMI] 50.0-59.9, adult; G47.33 Obstructive sleep apnea (adult) (pediatric); F17.210 Nicotine dependence, cigarettes, uncomplicated; E03.9 Hypothyroidism, unspecified; M79.7 Fibromyalgia; R00.0 Tachycardia, unspecified; J06.9 Acute upper respiratory infection, unspecified; F32.9 Major depressive disorder, single episode, unspecified; Z11.59 Encounter for screening for other viral diseases; R73.9 Hyperglycemia, unspecified; Z86.32 Personal history of gestational diabetes
CPT/HCPCS: 36415; 36600; 71045; 71275; 80048; 80053; 82550; 82553; 82805; 82962; 83036; 83605; 83735; 83880; 84145; 84439; 84443; 84484; 85025; 85610; 85730; 87633; 93005; 93010; 93306; 94150; 94640; 94660; 94762; 96361; 96365; 96366; 96375; 99285; 99291; G0378; J1650; J2930; J7613; Q9967

== ENCOUNTER → 2020-05-22 14:02 | Outpatient (CLI) | payer OTHER, MEDICAID, SELFPAY ==
[2020-02-28 03:55] VITALS: BMI 52.0
[2020-05-22 17:20] LABS: Free T3, Triiodothyronine Free 3.11 pg/mL (2.77-5.27); Free T4, Direct Thyroxine 0.98 ng/dL (0.78-2.19)
[2020-05-22 17:33] LABS: Thyroid Stimulating Hormone 2.52 uIU/mL (0.47-4.68)
== END ==
PROVIDERS: Family Provider Family Medicine; PCP Family Medicine; Referring Provider Family Medicine; Visit Provider Family Medicine
DX: E03.8 Other specified hypothyroidism (principal); E06.3 Autoimmune thyroiditis
CPT/HCPCS: 36415; 84439; 84443; 84481

== ENCOUNTER → 2020-05-26 13:41 | Outpatient (CLI) | payer OTHER, MEDICAID, SELFPAY ==
[2020-02-28 03:55] VITALS: BMI 52.0
--- NOTE | 2020-05-26 13:42 | DI.MRI.S_ITS ---
PROCEDURE: MR LUMBAR SPINE WO CON INDICATIONS: Radiculopathy, lumbosacral region TECHNIQUE: Noncontrast sagittal T1 spin echo and T2 fast echo, sagittal STIR, axial T1 and T2 fast spin echo through the lumbar spine. In cases with scoliosis, additional coronal T2 fast spin echo may be performed. COMPARISON: [facility], MR, MR LUMBAR SPINE WO CON, 10/07/2017, 7:14. FINDINGS: Image quality: Excellent. Alignment and Curvature: 5 lumbar type vertebral bodies are present by plain film. There is mild grade 1 retrolisthesis of L5 on S1. Bone Marrow: Marrow is of normal overall signal. No acute vertebral body compression fractures. There is increased, mild reactive signal within the endplates adjacent to the L5-S1 intervertebral disc. Spinal Cord: Conus medullaris terminates at the L1-L2 disc space level. Visualized cord demonstrates normal signal and size. A small lipoma of the filum terminalis is present which does not significantly contribute to canal stenosis. Paraspinous Soft Tissues: No paravertebral masses. Moderate dependent edema within the posterior subcutaneous fat. T12-L1: Normal appearance. L1-L2: Normal appearance. L2-L3: Normal appearance. L3-L4: Mild bilateral facet hypertrophy. No significant canal, or foraminal stenosis. L4-L5: Mild disc height loss and desiccation. Mild diffuse disc bulge with superimposed right paracentral protrusion. Mild facet and ligamentum flavum hypertrophy. Mild canal stenosis. Mild bilateral foraminal stenosis. The disc protrusion abuts the right L5 nerve root within the lateral recess and causes mild posterior deviation of the right L5 nerve root. This is new compared to the prior examination. L5-S1: Moderate disc height loss and desiccation. Mild diffuse disc bulge with superimposed new right posterolateral protrusion which abuts the right S1 nerve root within the lateral recess. Previously seen left posterolateral protrusion is decreased. Mild canal stenosis. Moderate left and mild right foraminal stenosis is unchanged. IMPRESSION: 1. Multilevel degenerative disc and facet disease, as well as ligamentum flavum hypertrophy and epidural lipomatosis. 2. Mild multilevel canal stenosis. 3. Multilevel foraminal stenosis, worst at L5-S1 on the left where there is moderate foraminal stenosis. 4. New L4-L5 disc protrusion, causing posterior deviation of the right L5 nerve root. 5. New right-sided L5-S1 disc protrusion which abuts the right S1 nerve root. 6. Recommend correlation with clinical symptoms to ascertain relevance of these findings. 7. Small lipoma of the filum terminalis which does not significantly contribute to canal stenosis. Dictated by: Humza Brothers M.D. on 05/26/2020 at 14:26 Approved by: Humza Brothers M.D. on 05/26/2020 at 15:17
== END ==
PROVIDERS: Family Provider Family Medicine; PCP Family Medicine; Referring Provider Family Medicine; Visit Provider Family Medicine
DX: M51.16 Intervertebral disc disorders with radiculopathy, lumbar region (principal); M51.17 Intervertebral disc disorders with radiculopathy, lumbosacral region; M48.07 Spinal stenosis, lumbosacral region; M48.061 Spinal stenosis, lumbar region without neurogenic claudication; E88.2 Lipomatosis, not elsewhere classified
CPT/HCPCS: 72148

== ENCOUNTER 2020-07-19 21:57 | Emergency (ER) | payer OTHER, MEDICAID, SELFPAY ==
[2020-02-28 03:55] VITALS: BMI 52.0
[2020-07-19] VITALS (8 sets, daily range): BP systolic 101–115; BP diastolic 50–59; PULSE 91–111; RESP 16–22; TEMP 37; O2SAT 93–97; BMI 50.5
--- NOTE | 2020-07-19 22:05 | DI.RAD.S_ITS ---
PROCEDURE: XR CHEST 1V INDICATIONS: chest pain TECHNIQUE: One view of the chest was acquired. COMPARISON: [facility], CR, XR CHEST 1V, 02/28/2020, 0:42. FINDINGS: Surgical changes and devices: None. Lungs and pleura: Lungs are clear. No pleural effusions or pneumothorax. Mediastinum: Mediastinal contours appear normal. Heart size is normal. Bones and chest wall: No suspicious bony lesions. Overlying soft tissues appear unremarkable. IMPRESSION: No acute cardiopulmonary disease. Dictated by: Medina Yuen M.D. on 07/20/2020 at 8:15 Approved by: Medina Yuen M.D. on 07/20/2020 at 8:16
[2020-07-19 22:21] LABS: Add Manual Diff / Slide Review NO; Basophils Absolute Auto 200 /uL (0-100); Basophils Percent Auto 1.3 % (0-2); Eosinophils Absolute Auto 600 /uL (0-450); Eosinophils Percent Auto 4.4 % (2-4); Hematocrit 40.4 % (36-46); Hemoglobin 13.3 g/dL (12.0-16.0); Lymphocytes Absolute Auto 2900 /uL (1100-4500); Lymphocytes Percent Auto 22.8 % (25-40); Mean Corpuscular Volume 87.9 fL (80-100); Monocytes Absolute Auto 900 /uL (0-900); Monocytes Percent Auto 6.7 % (3-14); Neutrophils Absolute Auto 8200 /uL (1500-7000); Neutrophils Percent Auto 64.8 % (50-75); Platelet Count 316 X10^3/uL (150-400); Red Cell Distribution Width 14.9 % (11.6-14.8); White Blood Cell Count 12.7 X10^3/uL (4.5-11.0)
[2020-07-19 22:25] LABS: Prothrombin Time 11.3 SECONDS (10.1-12.7)
[2020-07-19 22:28] LABS: PTT Partial Thromboplastin Tim 32 SECONDS (26.4-36.2)
[2020-07-19 22:30] LABS: Alanine Aminotransferase 29 IU/L (<35); Albumin 4.4 g/dL (3.5-5.0); Albumin Globulin Ratio 1.5 (1.0-2.8); Alkaline Phosphatase 142 U/L (38-126); Aspartate Aminotransferase 45 IU/L (14-36); BUN Creatinine Ratio 16.4 (6-22); Bilirubin Total 0.2 mg/dL (0.2-1.3); Blood Urea Nitrogen 11 mg/dL (7-17); Calcium 9.3 mg/dL (8.4-10.2); Carbon Dioxide 27 mmol/L (22-32); Chloride 103 mmol/L (98-107); Creatine Kinase 97 U/L (30-135); Estimated Glomerular Filt Rate > 60.0 mL/min (>60); Globulin 2.9 g/dL (1.7-4.1); Glucose 108 mg/dL (70-100); HEMOLYSIS 24 (0-50); Lipase 152 U/L (23-300); Potassium 3.2 mmol/L (3.4-5.1); Sodium 139 mmol/L (137-145); Total Protein 7.3 g/dL (6.3-8.2)
--- NOTE | 2020-07-19 22:36 | ED_ITS ---
HPI - Chest Pain General Chief Complaint: Chest Pain Stated Complaint: chest pain Time Seen by Provider: 07/19/20 22:19 Source: patient Mode of arrival: EMS Limitations: no limitations History of Present Illness HPI narrative: The patient was at the [facility] when she developed left upper chest pain about 1 hour prior to arrival. She has slight ongoing chest pain, despite being given aspirin and nitro by the paramedics. EMS monitoring showed normal sinus rhythm without significant ST changes. She has no underlying history of cardiac disease. She has history of asthma, she is not having respiratory difficulty at this time. She was smoking tonight at the [facility], she had a couple drinks. Is no excessive drinking, she does not use drugs. She has no headache, no cough or shortness of breath. She has no extremity pain. She says she has IBS, she is not currently abdominal discomfort. She has minor edema to ankles, the swelling is a baseline for her. She seems comfortable doing the exam. She has previously been hospitalized, chest pain was present but she had bilateral pneumonia and rhabdomyolysis at that time. Related Data Home Medications Medication Instructions Recorded Confirmed acyclovir 400 mg PO TID PRN 02/28/20 06/16/20 Previous Rx's Medication Instructions Recorded tizanidine 4 mg tablet 4 mg PO TIDP PRN #90 tab 04/22/16 inhalational spacing device #1 each 02/05/18 ipratropium 0.5 mg-albuterol 3 mg 3 ml INHALATION Q4H PRN #180 ml 06/26/18 (2.5 mg base)/3 mL nebulization soln albuterol sulfate 2.5 mg INHALATION Q4-6H PRN #90 ml 06/02/19 levothyroxine 112 mcg tablet 112 mcg PO DAILY #90 tab 10/01/19 albuterol sulfate 90 mcg/actuation 2 puff INHALATION Q4HP PRN #1 each 10/29/19 aerosol inhaler quetiapine 25 mg tablet 12.5 mg PO BID PRN #60 tab 05/04/20 naloxone 4 mg/actuation nasal spray 1 spray INTRANASAL Q2M #2 ea 05/15/20 lorazepam 1 mg tablet 1 mg PO DAILY PRN #2 tab 05/17/20 pregabalin 200 mg capsule 200 mg PO BID #60 cap 05/21/20 metoprolol tartrate 25 mg tablet 25 mg PO BID #60 tab 05/26/20 oxycodone-acetaminophen 5 mg-325 See Rx Instructions PO .COMPLEX 06/27/20 mg tablet #180 tab amitriptyline 75 mg tablet See Rx Instructions .ROUTE 07/07/20 .COMPLEX #60 tab bupropion HCl 150 mg 24 hr tablet, See Rx Instructions .ROUTE 07/07/20 extended release .COMPLEX #30 tab duloxetine 60 mg capsule,delayed 60 mg PO DAILY #30 cap 07/07/20 release prednisone 60 mg PO DAILY 5 Days #15 tab 07/20/20 Allergies Allergy/AdvReac Type Severity Reaction Status Date / Time Penicillins [PENICILLINS] Allergy Unknown Verified 05/08/20 15:45 fluconazole [From DIFLUCAN] AdvReac Intermediate vomiting Verified 05/08/20 15:45 and abd pain codeine [CODEINE] AdvReac Mild NAUSEA Verified 05/08/20 15:45 Review of Systems Constitutional Constitutional: Denies body ache(s), Denies fatigue, Denies fever(s) and Denies headache(s) Eyes Eyes: Denies change in vision ENT Ears, Nose, Mouth, and Throat: Denies vertigo, Denies dizziness and Denies headache(s) Cardiovascular Cardiovascular: Reports chest pain, Denies irregular heart rhythm, Denies dyspnea and Denies orthopnea Respiratory Respiratory: Denies cough, Denies dyspnea and Denies wheezing Gastrointestinal Gastrointestinal: Denies abdominal pain, Denies change in bowel habits, Denies diarrhea, Denies nausea and Denies vomiting Genitourinary Genitourinary: Denies dysuria Genitourinary: Denies dysuria Musculoskeletal Musculoskeletal: Denies back pain and Denies numbness Comments: No extremity pain. Integumentary/Breasts Skin/Breast: Denies pruritus, Denies erythema, Denies rash and Denies wounds Neurologic Neurologic: Denies vertigo, Denies dizziness, Denies headache(s) and Denies numbness Endocrine Endocrine: Denies fatigue Allergic/Immunologic Allergic/Immunologic: Denies wheezing Patient History Medical History Asthma Depression Diverticular disease (~2015) Essential hypertension Fibromyalgia (~05/2017) Gestational diabetes mellitus (GDM) (10/27/14) History of PCR DNA positive for HSV1 (~2014) Hypothyroidism (~2008) Irritable bowel syndrome Lymphedema of arm Major depressive disorder Migraines Obstructive sleep apnea on CPAP Rheumatoid arthritis Surgical History Status post delivery (12/30/14) Status post laparoscopic supracervical hysterectomy (10/23/15) Status post laparoscopy (01/19/16) Status post surgery (07/07/12) Status post tubal ligation (12/30/14) Family History Grandmother Stroke Grandfather Heart disease Cancer Father Hypertension Social History household members: spouse and children Smoking Status: Current some day smoker alcohol intake: current Smoking Status: Current some day smoker alcohol intake frequency: a few times a week Substance Use Type: does not use Exam Initial Vital Signs Initial Vital Signs: Vital Signs Temperature 98.6 F 07/19/20 21:57 Pulse Rate 106 H 07/19/20 21:57 Respiratory Rate 16 07/19/20 21:57 Blood Pressure 101/50 L 07/19/20 21:57 Pulse Oximetry 94 07/19/20 21:57 Const General: cooperative and well developed Nutritional Appearance: well nourished HENOH Head: normal to inspection, normocephalic and atraumatic Mouth: oral mucosae normal Throat: posterior oropharynx normal Eyes General: appearance normal, both eyes and all related structures Eyelids: eyelids normal Conjunctivae: conjunctivae normal Sclera: sclerae normal Pupils: PERRL EOM: EOM intact bilaterally Neck Neck: No JVD Chest Other: Mild tenderness in the left pectoralis muscle region. Resp Auscultation: clear to auscultation bilaterally Cardio Rate: regular rate Rhythm: regular rhythm Heart Sounds: S1 normal, S2 normal, no click, no gallops, no murmurs and no rubs Pulses: normal peripheral pulses GI Inspection: non-distended Palpation: soft, no hepatosplenomegaly, No guarding and No tender Auscultation: normal bowel sounds Back/Spine/Pelvis Back: No CVA tenderness Skin General: no rashes or lesions noted, No jaundice and No petechiae Neuro General: patient alert, patient oriented x3, gait normal and no focal motor deficits Speech: speech normal Extrem Other: Mild lower extremity edema bilaterally. Negative Herve sign. Psych Mental Status: mental status grossly normal Course Course Course Narrative: The patient's lungs were initially clear. It is noted she has a history of asthma. She developed coughing and wheezing, initially treated with a DuoNeb. She was given albuterol and Solu-Medrol due to ongoing symptoms. The initial EKG and troponin were normal. Chest x-ray revealed no acute cardiopulmonary disease. BNP was normal. Prior to discharge her lungs were clear, she knows she is feeling much better. She still has slight achiness in the left pectoralis major muscle. She is advised use Tylenol for pain. She is advised return for increase cardiac or respiratory issues. Orders Ordered: ED Orders 07/19/20 22:05 XR chest 1V Stat EKG-12 Lead Stat 07/19/20 22:10 Complete Blood Count AUTO DIFF Stat Comprehensive Metabolic Panel Stat Lipase Stat Partial Thromboplastin Time Stat Prothrombin Time INR Stat Troponin & CK Cardiac Panel Stat 07/19/20 22:56 EKG-12 Lead Stat 07/19/20 23:58 NT-proBNP (BNP-Adult 18+) Stat Troponin I Stat Discontinued Medications Acetaminophen (Acetaminophen 325 Mg Tablet) 975 mg PO NOW ONE Stop: 07/19/20 22:37 Last Admin: 07/19/20 22:43 Dose: 975 mg Documented by: CHARLES Albuterol (Albuterol 2.5 Mg/3 Ml Neb (Adult)) 20 mg INH NOW ONE Stop: 07/19/20 23:59 Last Admin: 07/20/20 00:07 Dose: 2.5 mg Documented by: Albuterol/Ipratropium (Albuterol/Ipratropium 3 Ml Ampul) 3 ml INH NOW ONE Stop: 07/19/20 22:57 Last Admin: 07/19/20 23:02 Dose: 3 ml Documented by: ISMAEL Methylprednisolone (Methylprednisolone 125 Mg/2 Ml Vial) 125 mg IV NOW ONE Stop: 07/19/20 23:59 Last Admin: 07/20/20 00:05 Dose: 125 mg Documented by: Vital Signs Vital signs: Vital Signs - 8 hr 07/19/20 21:57 07/19/20 22:00 07/19/20 22:03 Temperature 98.6 F Pulse Rate 106 H 111 H 106 H Respiratory Rate 16 Blood Pressure 101/50 L 101/50 L Pulse Oximetry 94 95 94 07/19/20 22:30 07/19/20 22:50 07/19/20 23:00 Temperature Pulse Rate 98 H 93 H 91 H Respiratory Rate 18 18 20 Blood Pressure 104/56 L 111/59 L Pulse Oximetry 93 93 94 07/19/20 23:12 07/19/20 23:30 07/20/20 00:00 Temperature Pulse Rate 92 H 92 H 89 Respiratory Rate 22 21 20 Blood Pressure 115/53 L 113/56 L Pulse Oximetry 97 93 93 07/20/20 00:08 07/20/20 00:30 07/20/20 01:00 Temperature Pulse Rate 90 90 88 Respiratory Rate 20 16 17 Blood Pressure 98/56 L 108/58 L Pulse Oximetry 96 89 L 93 07/20/20 01:30 Temperature Pulse Rate 84 Respiratory Rate 17 Blood Pressure 127/66 Pulse Oximetry 93 MDM - Chest Pain Lab Data Result diagrams: 07/19/20 22:10 07/19/20 22:10 Labs: Lab Results 07/19/20 07/19/20 07/19/20 Range/Units 22:10 22:10 22:10 WBC 12.7 H (4.5-11.0) X10^3/uL RBC 4.60 (4.0-5.2) X10^6/uL Hgb 13.3 (12.0-16.0) g/dL Hct 40.4 (36-46) % MCV 87.9 (80-100) fL MCH 29.0 (26-34) PG MCHC 33.0 (30-36) % RDW 14.9 H (11.6-14.8) % Plt Count 316 (150-400) X10^3/uL Neut % (Auto) 64.8 (50-75) % Lymph % (Auto) 22.8 L (25-40) % [place] % (Auto) 6.7 (3-14) % Eos % (Auto) 4.4 H (2-4) % Baso % (Auto) 1.3 (0-2) % Neut # (Auto) 8200 H (3135-0236) /uL Lymph # (Auto) 2900 (5381-9272) /uL [place] # (Auto) 900 (0-900) /uL Eos # (Auto) 600 H (0-450) /uL Baso # (Auto) 200 H (0-100) /uL PT 11.3 (10.1-12.7) SECONDS INR 1.0 (0.9-1.3) APTT 32 (26.4-36.2) SECONDS Sodium 139 (137-145) mmol/L Potassium 3.2 L (3.4-5.1) mmol/L Chloride 103 (98-107) mmol/L Carbon Dioxide 27 (22-32) mmol/L BUN 11 (7-17) mg/dL Creatinine 0.67 (0.52-1.04) mg/dL Estimated GFR > 60.0 (>60) mL/min BUN/Creatinine Ratio 16.4 (6-22) Glucose 108 H (70-100) mg/dL Calcium 9.3 (8.4-10.2) mg/dL Total Bilirubin 0.2 (0.2-1.3) mg/dL AST 45 H (14-36) IU/L ALT 29 (<35) IU/L Alkaline Phosphatase 142 H (38-126) U/L Total Creatine Kinase 97 (30-135) U/L CK-MB (CK-2) TNP CK-MB (CK-2) Rel Index TNP Troponin I < 0.012 (0.01-0.034) ng/mL NT-Pro-B Natriuret Pep (<125) pg/mL Total Protein 7.3 (6.3-8.2) g/dL Albumin 4.4 (3.5-5.0) g/dL Globulin 2.9 (1.7-4.1) g/dL Albumin/Globulin Ratio 1.5 (1.0-2.8) Lipase 152 (23-300) U/L 07/20/20 Range/Units 00:10 WBC (4.5-11.0) X10^3/uL RBC (4.0-5.2) X10^6/uL Hgb (12.0-16.0) g/dL Hct (36-46) % MCV (80-100) fL MCH (26-34) PG MCHC (30-36) % RDW (11.6-14.8) % Plt Count (150-400) X10^3/uL Neut % (Auto) (50-75) % Lymph % (Auto) (25-40) % [place]verse % (Auto) (3-14) % Eos % (Auto) (2-4) % Baso % (Auto) (0-2) % Neut # (Auto) (9720-8333) /uL Lymph # (Auto) (0708-5286) /uL [place]verse # (Auto) (0-900) /uL Eos # (Auto) (0-450) /uL Baso # (Auto) (0-100) /uL PT (10.1-12.7) SECONDS INR (0.9-1.3) APTT (26.4-36.2) SECONDS Sodium (137-145) mmol/L Potassium (3.4-5.1) mmol/L Chloride (98-107) mmol/L Carbon Dioxide (22-32) mmol/L BUN (7-17) mg/dL Creatinine (0.52-1.04) mg/dL Estimated GFR (>60) mL/min BUN/Creatinine Ratio (6-22) Glucose (70-100) mg/dL Calcium (8.4-10.2) mg/dL Total Bilirubin (0.2-1.3) mg/dL AST (14-36) IU/L ALT (<35) IU/L Alkaline Phosphatase (38-126) U/L Total Creatine Kinase (30-135) U/L CK-MB (CK-2) CK-MB (CK-2) Rel Index Troponin I < 0.012 (0.01-0.034) ng/mL NT-Pro-B Natriuret Pep 59 (<125) pg/mL Total Protein (6.3-8.2) g/dL Albumin (3.5-5.0) g/dL Globulin (1.7-4.1) g/dL Albumin/Globulin Ratio (1.0-2.8) Lipase (23-300) U/L Imaging Data Chest x-ray: Radiologist's Impression: No acute cardiopulmonary findings. ECG Data Attestation: I personally reviewed and interpreted this ECG as follows: (Sinus tachycardia rate 105 beats per minute. Normal intervals. No ectopy. No acute ST T wave changes. EKG 2., no significant change.) Discharge Plan Departure Patient Disposition: Home Clinical Impression: Asthma exacerbation Qualifiers: Asthma severity: moderate Asthma persistence: persistent Qualified Code(s): J45.41 - Moderate persistent asthma with (acute) exacerbation Chest wall muscle strain Qualifiers: Encounter type: initial encounter Qualified Code(s): S29.011A - Strain of muscle and tendon of front wall of thorax, initial encounter Instructions: Asthma -- Adult, DI for Atypical Chest Pain Activity Restrictions/Additional Instructions: Use your inhaler as prescribed. Prednisone 60 mg daily for 5 days. Tylenol 2 tablets every 4 hours as needed for the left chest wall pain. This appears to be a muscle strain. Return the ER for significant worsening of breathing, or chest pain. I recommend you avoid tobacco use, and areas such as the [facility] were tobacco use is prevalent. Prescriptions: New prednisone 20 mg tablet 60 mg PO DAILY 5 Days Qty: 15 RF: 0 No Action albuterol sulfate 2.5 mg /3 mL (0.083 %) solution for nebulization 2.5 mg INHALATION Q4-6H PRN (Reason: bronchospasm) Qty: 90 RF: 0 tizanidine 4 mg tablet 4 mg PO TIDP PRN (Reason: muscle spasticity) Qty: 90 RF: 2 quetiapine 25 mg tablet 12.5 mg PO BID PRN (Reason: anxiety) Qty: 60 RF: 2 naloxone 4 mg/actuation spray,non-aerosol 1 spray intranasal Q2M Qty: 2 RF: 0 lorazepam 1 mg tablet 1 mg PO DAILY PRN (Reason: anxiety) Qty: 2 RF: 0 pregabalin 200 mg capsule 200 mg PO BID Qty: 60 RF: 5 metoprolol tartrate 25 mg tablet 25 mg PO BID Qty: 60 RF: 1 oxycodone-acetaminophen 5-325 mg tablet See Rx Instructions PO .COMPLEX Qty: 180 RF: 0 amitriptyline 75 mg tablet See Rx Instructions .ROUTE .COMPLEX Qty: 60 RF: 0 bupropion HCl 150 mg tablet extended release 24 hr See Rx Instructions .ROUTE .COMPLEX Qty: 30 RF: 0 duloxetine 60 mg capsule,delayed release(DR/EC) 60 mg PO DAILY Qty: 30 RF: 2 (DME) inhalational spacing device [Timmy Aerosol [place] Enhancer] spacer See Dose Instructions .ROUTE .MEDSUPPLY Qty: 1 RF: 0 Ventolin HFA 90 mcg/actuation HFA aerosol inhaler 2 puff INHALATION Q4HP PRN (Reason: shortness of breath or wheezing) Qty: 1 RF: 5 ipratropium-albuterol 0.5 mg-3 mg(2.5 mg base)/3 mL solution for nebulization 3 ml INHALATION Q4H PRN (Reason: shortness of breath or wheezing) Qty: 180 RF: 0 levothyroxine 112 mcg tablet 112 mcg PO DAILY Qty: 90 RF: 3 acyclovir 400 mg tablet 400 mg PO TID PRN (Reason: Cold Sores) RF: 0 Referrals: Rebeca Meyer DO [Primary Care Provider] -
[2020-07-19 22:41] LABS: Troponin I < 0.012 ng/mL (0.01-0.034)
[2020-07-19] MEDS: ACETAMINOPHEN 325 MG TABLET 975 MG PO (22:43)
[2020-07-19] MEDS: ALBUTEROL/IPRATROPIUM 3 ML AMPUL INH (23:02)
[2020-07-20] VITALS: BP 113/56; PULSE 89; RESP 20; O2SAT 93
[2020-07-20] MEDS: methylPREDNISolone 125 MG/2 ML VIAL IV (00:05)
[2020-07-20] MEDS: ALBUTEROL 2.5 MG/3 ML NEB (ADULT) 20 MG INH (00:07)
[2020-07-20 00:08] VITALS: PULSE 90; RESP 20; O2SAT 96
[2020-07-20 00:30] VITALS: BP 98/56; PULSE 90; RESP 16; O2SAT 89
[2020-07-20 00:47] LABS: NT-proBNP (BNP-Adult 18+) 59 pg/mL (<125); Troponin I < 0.012 ng/mL (0.01-0.034)
[2020-07-20 01:00] VITALS: BP 108/58; PULSE 88; RESP 17; O2SAT 93
[2020-07-20 01:30] VITALS: BP 127/66; PULSE 84; RESP 17; O2SAT 93
== END 2020-07-20 01:48 | disposition home or self-care (01) ==
PROVIDERS: Emergency Provider Emergency Medicine; Family Provider Family Medicine; PCP Family Medicine
DX: J45.41 Moderate persistent asthma with (acute) exacerbation (principal); S29.011A Strain of muscle and tendon of front wall of thorax, initial encounter
CPT/HCPCS: 36415; 71045; 80053; 82550; 83690; 83880; 84484; 85025; 85610; 85730; 93005; 93010; 94640; 96374; 99284; J2930; J7613

== ENCOUNTER → 2020-09-04 12:42 | Outpatient (CLI) | payer OTHER, MEDICAID, SELFPAY ==
[2020-02-28 03:55] VITALS: BMI 52.0
--- NOTE | 2020-09-04 12:44 | DI.NM.S_ITS ---
PROCEDURE: NM BONE SPECT RADIOPHARMACEUTICAL: 19.3 mCi Tc-99m MDP IV. INDICATIONS: Spinal stenosis, lumbar region TECHNIQUE: Delayed bone scintigrams were obtained of the region of interest 3-4 hours after intravenous administration of Tc-99m MDP. Additional tomographic (SPECT) imaging was performed and displayed in axial, coronal, and sagittal planes. COMPARISON: [facility], CT, CT LUMBAR SPINE WITHOUT CONTRAST, 03/24/2020, 20:46. [facility], CR, XR CHEST 1V, 07/19/2020, 22:08. [facility], MR, MR LUMBAR SPINE WO CON, 05/26/2020, 13:51. FINDINGS: There is asymmetric elevated isotope uptake along the posterior 3rd of the left iliac crest and more inferiorly along the left sacroiliac joint margin. This pattern also extends into the left ischial tuberosity, and is best seen on the posterior full field imaging for anatomic perspective, but also is easily visualized on the dedicated axial SPECT imaging the asymmetry is most pronounced at the ischial tuberosity area. On review imaging of prior studies it is noted that there it is a subtle asymmetric sclerosis within the medial left iliac bone along the sacroiliac joint, corresponding to the abnormality seen on current bone scan imaging and relatively coarse trabecula. The pattern raises question of Paget's disease as the underlying cause. IMPRESSION: Suspect left-sided Paget's disease as cause of asymmetric increased isotope uptake along the posterior iliac crest on the left, the left medial border of the iliac bone, along the sacroiliac joint. Also, most prominently, at the shield tuberosities E region on the left. As noted above a prior CT from 03/24/20 can retrospectively be seen to demonstrate a subtle increased bone density on the left in the area that was included open (medial left iliac bone). Dictated by: Nitish Sexton M.D. on 09/05/2020 at 12:52 Approved by: Nitish Sexton M.D. on 09/05/2020 at 13:05
== END ==
PROVIDERS: Family Provider Family Medicine; PCP Family Medicine; Referring Provider Orthopaedic Surgery; Visit Provider Orthopaedic Surgery
DX: M48.061 Spinal stenosis, lumbar region without neurogenic claudication (principal); M54.10 Radiculopathy, site unspecified; M43.16 Spondylolisthesis, lumbar region; M51.26 Other intervertebral disc displacement, lumbar region; R29.898 Other symptoms and signs involving the musculoskeletal system
CPT/HCPCS: 78305; A9503

== ENCOUNTER → 2020-10-23 11:58 | Outpatient (CLI) | payer OTHER, MEDICAID, SELFPAY ==
[2020-02-28 03:55] VITALS: BMI 52.0
[2020-10-23 15:06] LABS: Vitamin D 25 Hydroxy (D3) < 12.8 ng/mL (30.0-100.0)
[2020-10-25 14:41] LABS: Alkaline Phosphatase, Bone Spe 43.9 ug/L (.)
[2020-10-25 19:10] LABS: C-Telopeptide, Serum 261 pg/mL (.)
[2020-10-26 14:50] LABS: Propeptide Type I Collagen 66 ug/L (.)
== END ==
PROVIDERS: Family Provider Family Medicine; PCP Family Medicine; Referring Provider Family Medicine; Visit Provider Family Medicine
DX: M88.9 Osteitis deformans of unspecified bone (principal)
CPT/HCPCS: 36415; 82306; 82523; 84080

== ENCOUNTER 2020-10-30 00:10 | Emergency (ER) | payer OTHER, MEDICAID, SELFPAY ==
[2020-02-28 03:55] VITALS: BMI 52.0
--- NOTE | 2020-10-30 00:21 | DI.RAD.S_ITS ---
PROCEDURE: XR WRIST LT MIN 3V INDICATIONS: fall TECHNIQUE: 4 views of the wrist were acquired. COMPARISON: None. FINDINGS: Bones: No fractures. Slightly widened distal radial ulnar joint. No suspicious bony lesions. Scaphoid view: Scaphoid is intact. Soft tissues: No suspicious soft tissue calcifications. IMPRESSION: 1. No fracture. 2. Slightly widened distal radioulnar joint may represent subluxation. Dictated by: Ainsley Kidd MD, PhD on 10/30/2020 at 8:13 Approved by: Ainsley Kidd MD, PhD on 10/30/2020 at 8:14
--- NOTE | 2020-10-30 00:21 | DI.RAD.S_ITS ---
PROCEDURE: XR HAND LT MIN 3V INDICATIONS: fall TECHNIQUE: 3 views of the hand(s) acquired. COMPARISON: None. FINDINGS: Bones: No fractures or dislocations. Carpal bones are normally aligned. No suspicious bony lesions. Soft tissues: No suspicious soft tissue calcifications. IMPRESSION: No fracture. No osseous lesion. If symptoms and/or clinical suspicion for pathology persists, further assessment with repeat radiographs (7-10 days) or advanced imaging (e.g. CT, MRI or bone scan) should be considered. Dictated by: Ainsley Kidd MD, PhD on 10/30/2020 at 8:12 Approved by: Ainsley Kidd MD, PhD on 10/30/2020 at 8:13
--- NOTE | 2020-10-30 00:21 | DI.RAD.S_ITS ---
PROCEDURE: XR FOREARM LT 2V INDICATIONS: fall TECHNIQUE: 2 views of the forearm were acquired. COMPARISON: [facility], CR, XR WRIST LT MIN 3V, 10/30/2020, 0:26. FINDINGS: Bones: No fractures or dislocations. No definite bony lesions. At the junction of the proximal and middle thirds of the left radial diaphysis there is an area of cortical thickening, associated with the inter osseous membrane region of the forearm. This appears chronic, etiology uncertain and clinical significance is indeterminate. No comparison prior study includes this area. Soft tissues: No suspicious soft tissue calcifications or masses. IMPRESSION: No acute trauma found. Note is made of chronic appearing focal cortical thickening involving the diaphysis of the left radius in the I inter-osseous membrane area. If clinically desired this area could be further assessed in 3-6 months to establish chronicity of appearance over time. Dictated by: Nitish Sexton M.D. on 10/30/2020 at 8:41 Approved by: Nitish Sexton M.D. on 10/30/2020 at 8:46
--- NOTE | 2020-10-30 01:27 | ED.GENADULT ---
HPI - General Adult General Chief complaint: Extremity Injury, Upper Stated complaint: poss left broken arm, fell 3 days ago Time Seen by Provider: 10/30/20 00:26 Source: patient Mode of arrival: Ambulatory History of Present Illness HPI narrative: Patient is a 39-year-old female here for evaluation of left arm discomfort. States she fell a couple days ago and since that time has had discomfort and swelling of her left arm. She has not had it evaluated up to this point. Has not tried anything for the symptoms prior to arrival. Related Data Home Medications Medication Instructions Recorded Confirmed acyclovir 400 mg tablet 400 mg PO TID PRN 02/28/20 09/01/20 Previous Rx's Medication Instructions Recorded tizanidine 4 mg tablet 4 mg PO TIDP PRN #90 tab 04/22/16 inhalational spacing device (Timmy #1 each 02/05/[address] [place] Enhancer) albuterol sulfate 90 mcg/actuation 2 puff INHALATION Q4HP PRN #1 each 10/29/19 aerosol inhaler (Ventolin HFA) naloxone 4 mg/actuation nasal spray 1 spray INTRANASAL Q2M #2 ea 05/15/20 lorazepam 1 mg tablet 1 mg PO DAILY PRN #2 tab 05/17/20 metoprolol tartrate 25 mg tablet 25 mg PO BID #60 tab 05/26/20 budesonide 1 mg/2 mL suspension 1 mg INHALATION BID #120 ml 07/24/20 for nebulization albuterol sulfate 2.5 mg INHALATION Q4-6H PRN #90 ml 08/21/20 ipratropium 0.5 mg-albuterol 3 mg 3 ml INHALATION Q4H PRN #180 ml 08/21/20 (2.5 mg base)/3 mL nebulization soln levothyroxine 112 mcg tablet See Rx Instructions .ROUTE 09/04/20 .COMPLEX #90 tab amitriptyline 75 mg tablet See Rx Instructions .ROUTE 10/06/20 .COMPLEX #60 tab bupropion HCl 150 mg 24 hr tablet, See Rx Instructions .ROUTE 10/06/20 extended release .COMPLEX #30 tab duloxetine 60 mg capsule,delayed See Rx Instructions .ROUTE 10/06/20 release .COMPLEX #30 cap quetiapine 25 mg tablet See Rx Instructions .ROUTE 10/06/20 .COMPLEX #60 tab oxycodone-acetaminophen 5 mg-325 See Rx Instructions PO .COMPLEX 10/16/20 mg tablet #180 tab pregabalin 200 mg capsule 200 mg PO BID #60 cap 10/16/20 cholecalciferol (vitamin D3) 1,250 50,000 unit PO QWEEK #12 cap 10/26/20 mcg (50,000 unit) capsule Allergies Allergy/AdvReac Type Severity Reaction Status Date / Time Penicillins [PENICILLINS] Allergy Unknown Verified 09/01/20 13:48 fluconazole [From DIFLUCAN] AdvReac Intermediate vomiting Verified 09/01/20 13:48 and abd pain codeine [CODEINE] AdvReac Mild NAUSEA Verified 09/01/20 13:48 Review of Systems Constitutional Constitutional: Reports system reviewed and no additional complaints, except as documented Cardiovascular Cardiovascular: Reports system reviewed and no additional complaints, except as documented Respiratory Respiratory: Reports system reviewed and no additional complaints, except as documented Musculoskeletal Comments: Left arm pain Integumentary/Breasts Skin/Breast: Reports system reviewed and no additional complaints, except as documented Neurologic Neurologic: Reports system reviewed and no additional complaints, except as documented Hematologic/Lymphatic On Anticoagulants: No Allergic/Immunologic Allergic/Immunologic: Reports system reviewed and no additional complaints, except as documented Patient History Medical History Asthma Depression Diverticular disease (~2015) Essential hypertension Fibromyalgia (~05/2017) Gestational diabetes mellitus (GDM) (10/27/14) History of PCR DNA positive for HSV1 (~2014) Hypothyroidism (~2008) Irritable bowel syndrome Lymphedema of arm Major depressive disorder Migraines Obstructive sleep apnea on CPAP Rheumatoid arthritis Surgical History Status post delivery (12/30/14) Status post laparoscopic supracervical hysterectomy (10/23/15) Status post laparoscopy (01/19/16) Status post surgery (07/07/12) Status post tubal ligation (12/30/14) Family History Grandmother Stroke Grandfather Heart disease Cancer Father Hypertension Social History household members: spouse and children Smoking Status: Current some day smoker alcohol intake: current Smoking Status: Current some day smoker alcohol intake frequency: a few times a week Substance Use Type: does not use Exam Initial Vital Signs Initial Vital Signs: Vital Signs Pulse Rate 96 H 10/30/20 02:05 Respiratory Rate 18 10/30/20 02:05 Blood Pressure 171/100 H 10/30/20 02:05 Pulse Oximetry 93 10/30/20 02:05 HENMT Head: normal to inspection Cardio Pulses: radial pulses present Back/Spine/Pelvis Back: normal to inspection Skin General: no rashes or lesions noted Neuro Other: Sensation is intact to light touch Extrem Other: Patient with tenderness to palpation from her mid forearm down to her wrist. Has some discomfort with flexion extension of the left wrist. Psych Appearance: grossly normal and well kempt Procedures Orthopedic Splinting/Casting Injury #1: Upper Extremity Injury Location: wrist Upper Extremity Immobilizer: thumb spica (Removable splint) Post splinting neuro exam: intact Post splinting vascular exam: intact Placed by: Nursing Course Orders Ordered: Discontinued Medications Hydrocodone Bitart/Acetaminophen (Hydrocodone/Acet 5/325 Prepack) 1 bottle [facility] [place] [facility] Stop: 10/30/20 01:43 Last Admin: 10/30/20 01:56 Dose: 1 bottle Documented by: HARJIT Medical Decision Making Imaging Data Extremity x-ray #1: Radiologist's Impression: No fracture evident of the left wrist White in distal radial ulnar joint may represent subluxation Extremity x-ray #2: Radiologist's Impression: No fracture evident of x-rays of left hand Extremity x-ray #3: Radiologist's Impression: No fracture evident [facility] Narrative Medical decision making narrative: There were no obvious fractures noted on the x-rays however there was some concern about potential subluxation. Patient was tender over this area. She is able to flex and extend her wrist to a point but is having some discomfort with so. Will place her in a removable wrist splint to wear and also to contact her primary doctor for a follow-up and repeat x-rays. She was given return precautions. She expressed understanding and agreement. Discharge Plan Departure Patient Disposition: Home Clinical Impression: Left wrist pain Instructions: How To Perform RICE (Rest, Ice, Compress, Elevate) Activity Restrictions/Additional Instructions: I recommend that you where the wrist splint the majority of the time for the next week. You can take it off to shower. Contact her primary doctor tomorrow for a follow-up next week and a re-x-ray. Return to the emergency department for any new or worsening symptoms Prescriptions: No Action naloxone 4 mg/actuation spray,non-aerosol 1 spray intranasal Q2M Qty: 2 RF: 0 lorazepam 1 mg tablet 1 mg PO DAILY PRN (Reason: anxiety) Qty: 2 RF: 0 metoprolol tartrate 25 mg tablet 25 mg PO BID Qty: 60 RF: 1 albuterol sulfate 2.5 mg /3 mL (0.083 %) solution for nebulization 2.5 mg INHALATION Q4-6H PRN (Reason: bronchospasm) Qty: 90 RF: 0 ipratropium-albuterol 0.5 mg-3 mg(2.5 mg base)/3 mL solution for nebulization 3 ml INHALATION Q4H PRN (Reason: shortness of breath or wheezing) Qty: 180 RF: 0 levothyroxine 112 mcg tablet See Rx Instructions .ROUTE .COMPLEX Qty: 90 RF: 1 duloxetine 60 mg capsule,delayed release(DR/EC) See Rx Instructions .ROUTE .COMPLEX Qty: 30 RF: 0 amitriptyline 75 mg tablet See Rx Instructions .ROUTE .COMPLEX Qty: 60 RF: 0 bupropion HCl 150 mg tablet extended release 24 hr See Rx Instructions .ROUTE .COMPLEX Qty: 30 RF: 0 quetiapine 25 mg tablet See Rx Instructions .ROUTE .COMPLEX Qty: 60 RF: 0 pregabalin 200 mg capsule 200 mg PO BID Qty: 60 RF: 5 oxycodone-acetaminophen 5-325 mg tablet See Rx Instructions PO .COMPLEX Qty: 180 RF: 0 cholecalciferol (vitamin D3) 1,250 mcg (50,000 unit) capsule 50,000 unit PO QWEEK Qty: 12 RF: 0 (DME) inhalational spacing device [Timmy Aerosol [place] Enhancer] spacer See Dose Instructions .ROUTE .MEDSUPPLY Qty: 1 RF: 0 Ventolin HFA 90 mcg/actuation HFA aerosol inhaler 2 puff INHALATION Q4HP PRN (Reason: shortness of breath or wheezing) Qty: 1 RF: 5 budesonide 1 mg/2 mL suspension for nebulization 1 mg inhalation BID Qty: 120 RF: 0 tizanidine 4 mg tablet 4 mg PO TIDP PRN (Reason: muscle spasticity) Qty: 90 RF: 2 acyclovir 400 mg tablet 400 mg PO TID PRN (Reason: Cold Sores) RF: 0 Referrals: Rebeca Meyer DO [Primary Care Provider] -
[2020-10-30] MEDS: HYDROCODONE/ACET 5/325 PREPACK 1 BOTTLE MISC (01:56)
[2020-10-30 02:05] VITALS: BP 171/100; PULSE 96; RESP 18; O2SAT 93
== END 2020-10-30 02:05 | disposition home or self-care (01) ==
PROVIDERS: Emergency Provider Emergency Medicine; Family Provider Family Medicine; PCP Family Medicine
DX: M25.532 Pain in left wrist (principal); W19.XXXA Unspecified fall, initial encounter
CPT/HCPCS: 73090; 73110; 73130; 99282; 99283

== ENCOUNTER → 2020-12-25 10:48 | Outpatient (CLI) | payer OTHER, MEDICAID, SELFPAY ==
[2020-11-13 15:48] VITALS: BMI 52.0
[2020-12-25 13:15] LABS: Alanine Aminotransferase 28 IU/L (<35); Albumin 4.2 g/dL (3.5-5.0); Albumin Globulin Ratio 1.3 (1.0-2.8); Alkaline Phosphatase 163 U/L (38-126); Aspartate Aminotransferase 48 IU/L (14-36); BUN Creatinine Ratio 24.3 (6-22); Bilirubin Total 0.3 mg/dL (0.2-1.3); Blood Urea Nitrogen 17 mg/dL (7-17); Calcium 9.7 mg/dL (8.4-10.2); Carbon Dioxide 29 mmol/L (22-32); Chloride 106 mmol/L (98-107); Estimated Glomerular Filt Rate > 60.0 mL/min (>60); Globulin 3.2 g/dL (1.7-4.1); Glucose 100 mg/dL (70-100); HEMOLYSIS 27 (0-50); Potassium 3.5 mmol/L (3.4-5.1); Sodium 140 mmol/L (137-145); Total Protein 7.4 g/dL (6.3-8.2)
[2020-12-25 15:24] LABS: Follicle Stimulating Hormone 9.23 mIU/mL
== END ==
PROVIDERS: Family Provider Family Medicine; PCP Family Medicine; Referring Provider Family Medicine; Visit Provider Family Medicine
DX: R23.2 Flushing (principal); I10 Essential (primary) hypertension; M88.9 Osteitis deformans of unspecified bone
CPT/HCPCS: 36415; 80053; 83001

== ENCOUNTER → 2020-12-27 12:59 | Outpatient (CLI) | payer OTHER, MEDICAID, SELFPAY ==
[2020-11-13 15:48] VITALS: BMI 52.0
--- NOTE | 2020-12-27 13:01 | DI.RAD.S_ITS ---
PROCEDURE: XR LUMBAR SPINE MIN 4V INDICATIONS: BACK PAIN TECHNIQUE: 5 views of the lumbar spine were acquired, including bilateral oblique views. COMPARISON: [facility], CR, XR LUMBAR SPINE MIN 4V, 10/29/2017, 17:14. FINDINGS: Bones: 5 nonrib-bearing vertebrae are present. There is normal bony alignment. No vertebral body compression fractures. No suspicious bony lesions. Bxoh-pt-ghaftyqd degenerative disc disease is present at L5-S1 and facet osteoarthritis is minimal at L3-4, mild at L4-5 and moderate at L5-S1. Soft tissues: Overlying bowel gas pattern is normal. No suspicious soft tissue calcifications. Oblique images: No pars defects. IMPRESSION: Low lumbosacral spine junction degenerative disc disease and facet osteoarthritis without subluxation or trauma. Back pain would be expected based on this finding. Dictated by: Nitish Sexton M.D. on 12/27/2020 at 15:51 Approved by: Nitish Sexton M.D. on 12/27/2020 at 15:52
== END ==
PROVIDERS: PCP Family Medicine; Referring Provider Physical Medicine & Rehabilitation; Visit Provider Physical Medicine & Rehabilitation
DX: M51.17 Intervertebral disc disorders with radiculopathy, lumbosacral region (principal); M47.26 Other spondylosis with radiculopathy, lumbar region; M47.27 Other spondylosis with radiculopathy, lumbosacral region
CPT/HCPCS: 72110

== ENCOUNTER 2021-01-20 17:21 | Emergency (ER) | payer OTHER, MEDICAID, SELFPAY ==
[2020-11-13 15:48] VITALS: BMI 52.0
[2021-01-20 17:28] VITALS: BP 180/109; PULSE 102; RESP 16; TEMP 36.9; O2SAT 99; BMI 51.7
--- NOTE | 2021-01-20 17:33 | DI.RAD.S_ITS ---
PROCEDURE: XR FOREARM LT 2V INDICATIONS: Fell/pain TECHNIQUE: 2 views of the forearm were acquired. COMPARISON: [facility], , XR FOREARM LT 2V, 10/30/2020, 0:26. FINDINGS: Bones: No fractures or dislocations. No suspicious bony lesions. At the junction of the proximal and middle 3rd of the left radial diaphysis there is a focal area of cortical thickening within the inter osseous membrane of the forearm which is unchanged compared to the prior study on 10/30/2020. Soft tissues: No suspicious soft tissue calcifications or masses. IMPRESSION: No acute traumatic abnormality. Dictated by: Chandan Mijares M.D. on 01/20/2021 at 18:05 Approved by: Chandan Mijares M.D. on 01/20/2021 at 18:07
--- NOTE | 2021-01-20 17:33 | DI.RAD.S_ITS ---
PROCEDURE: XR HAND RT MIN 3V INDICATIONS: Fell/pain TECHNIQUE: 3 views of the hand(s) acquired. COMPARISON: [facility], , XR HAND LT MIN 3V, 10/30/2020, 0:26. FINDINGS: Bones: No fractures or dislocations. Carpal bones are normally aligned. No suspicious bony lesions. Soft tissues: No suspicious soft tissue calcifications. IMPRESSION: Normal right hand Dictated by: Chandan Mijares M.D. on 01/20/2021 at 18:00 Approved by: Chandan Mijares M.D. on 01/20/2021 at 18:02
--- NOTE | 2021-01-20 17:33 | DI.RAD.S_ITS ---
PROCEDURE: XR HAND LT MIN 3V INDICATIONS: Fell/pain TECHNIQUE: 3 views of the hand(s) acquired. COMPARISON: [facility], CR, XR HAND LT MIN 3V, 10/30/2020, 0:26. FINDINGS: Bones: There is a avulsion fracture of the distal aspect of the proximal phalanx on the ulnar side at the PIP joint. A ring on the ring finger could not be removed and therefore the underlying bone cannot be evaluated. Please correlate with clinical location of pain. Soft tissues: No suspicious soft tissue calcifications. IMPRESSION: Avulsion fracture of the distal aspect of the proximal phalanx on the ulnar side of the PIP joint Dictated by: Chandan Mijares M.D. on 01/20/2021 at 18:02 Approved by: Chandan Mijares M.D. on 01/20/2021 at 18:04
--- NOTE | 2021-01-20 17:54 | ED_ITS ---
HPI - Extremity Injury (Upper) <Leonard Burden PA-C - Last Filed: 01/20/21 18:12> General Chief Complaint: Extremity Injury, Upper Stated Complaint: THINK I BROKE MY RIGHT HAND Time Seen by Provider: 01/20/21 17:34 Source: patient Mode of arrival: Ambulatory Limitations: no limitations History of Present Illness HPI narrative: Alina presents today with chief complaint right hand and wrist p ain after she sustained a fall last night well getting up to go to the bathroom. She reports that most of her weight went down onto her right hand but she also hit her left forearm on the coffee table. She reports that she tripped over 1 of her children's toys and fell onto the ground. She denies hitting her head, loss of consciousness, or any other injuries or acute concerns or complaints at this time. She denies any previous injuries to these areas in the past. Related Data Previous Rx's Medication Instructions Recorded tizanidine 4 mg tablet 4 mg PO TIDP PRN #90 tab 04/22/16 inhalational spacing device (Timmy #1 each 02/05/18 Aerosol [place] Enhancer) metoprolol tartrate 25 mg tablet 25 mg PO BID #60 tab 05/26/20 budesonide 1 mg/2 mL suspension 1 mg INHALATION BID #120 ml 07/24/20 for nebulization ipratropium 0.5 mg-albuterol 3 mg 3 ml INHALATION Q4H PRN #180 ml 08/21/20 (2.5 mg base)/3 mL nebulization soln levothyroxine 112 mcg tablet See Rx Instructions .ROUTE 09/04/20 .COMPLEX #90 tab albuterol sulfate 2.5 mg INHALATION Q4-6H PRN #90 ml 11/01/20 acyclovir 400 mg tablet 400 mg PO TID PRN #30 tab 11/13/20 cholecalciferol (vitamin D3) 1,250 50,000 unit PO QWEEK #12 cap 11/17/20 mcg (50,000 unit) capsule albuterol sulfate 90 mcg/actuation 2 puff INHALATION Q4HP PRN #1 each 11/30/20 aerosol inhaler (Ventolin HFA) bupropion HCl 150 mg 24 hr tablet, See Rx Instructions .ROUTE 12/20/20 extended release .COMPLEX #90 tab duloxetine 60 mg capsule,delayed See Rx Instructions .ROUTE 12/20/20 release .COMPLEX #90 cap quetiapine 25 mg tablet See Rx Instructions .ROUTE 12/20/20 .COMPLEX #60 tab amitriptyline 75 mg tablet See Rx Instructions .ROUTE 12/22/20 .COMPLEX #60 tab pregabalin 200 mg capsule 200 mg PO TID #90 cap 12/27/20 oxycodone-acetaminophen 5 mg-325 See Rx Instructions PO .COMPLEX 01/05/21 mg tablet #180 tab Allergies Allergy/AdvReac Type Severity Reaction Status Date / Time Penicillins [PENICILLINS] Allergy Unknown Verified 09/01/20 13:48 fluconazole [From DIFLUCAN] AdvReac Intermediate vomiting Verified 09/01/20 13:48 and abd pain codeine [CODEINE] AdvReac Mild NAUSEA Verified 09/01/20 13:48 Review of Systems <Leonard Burden PA-C - Last Filed: 01/20/21 18:12> Review of Systems Narrative: As per HPI Patient History <Leonard Burden PA-C - Last Filed: 01/20/21 18:12> Medical History Asthma Depression Diverticular disease (~2015) Essential hypertension Fibromyalgia (~05/2017) Gestational diabetes mellitus (GDM) (10/27/14) History of PCR DNA positive for HSV1 (~2014) Hypothyroidism (~2008) Irritable bowel syndrome Lymphedema of arm Major depressive disorder Migraines Obstructive sleep apnea on CPAP Rheumatoid arthritis Surgical History Status post delivery (12/30/14) Status post laparoscopic supracervical hysterectomy (10/23/15) Status post laparoscopy (01/19/16) Status post surgery (07/07/12) Status post tubal ligation (12/30/14) Family History Grandmother Stroke Grandfather Heart disease Cancer Father Hypertension Social History household members: spouse and children Smoking Status: Current some day smoker alcohol intake: current Smoking Status: Current some day smoker tobacco type: cigarettes and vaping alcohol intake frequency: a few times a week Substance Use Type: marijuana Exam <Leonard Burden PA-C - Last Filed: 01/20/21 18:12> Narrative Exam Narrative: Exam Narrative: Const General: cooperative, healthy appearing, comfortable, no acute distress, well developed and well groomed Nutritional Appearance: Elevated BMI Orientation: alert and oriented x3 HENMT Head: normal to inspection and atraumatic Ears: hearing grossly normal bilaterally Nose: external nose normal and nares normal Face and sinus: normal facial exam Neck Neck: normal visual inspection and supple Resp Effort & Inspection: normal respiratory effort, able to speak in complete sentences, no audible wheezes, not labored, no nasal flaring and no respiratory distress Neuro General: alert, oriented x3, gait normal, tone normal and moves all extremities Cognition: normal cognition Speech: speech normal Gait: normal gait Extremities Upper extremities exposed for evaluation. Bruising and tenderness noted to distal left forearm. Full range of motion of wrist and hand. Bruising, swelling and tenderness noted to the right hand. She is able to make a fist and extend her fingers without significant difficulty. Capillary refills within normal limits. Distal neurovascular status is normal. Psych Appearance: grossly normal and well kempt Mental Status: mental status grossly normal Speech and Movement: speech and movement normal Mood: congruent mood Affect: normal affect Initial Vital Signs Initial Vital Signs: Vital Signs Temperature 98.4 F 01/20/21 17:28 Pulse Rate 102 H 01/20/21 17:28 Respiratory Rate 16 01/20/21 17:28 Blood Pressure 180/109 H 01/20/21 17:28 Pulse Oximetry 99 01/20/21 17:28 <Marvel Coy DO - Last Filed: 01/21/21 07:08> Initial Vital Signs Initial Vital Signs: Vital Signs Temperature 98.4 F 01/20/21 17:28 Pulse Rate 102 H 01/20/21 17:28 Respiratory Rate 16 01/20/21 17:28 Blood Pressure 180/109 H 01/20/21 17:28 Pulse Oximetry 99 01/20/21 17:28 Course <Leonard Burden PA-C - Last Filed: 01/20/21 18:12> Orders Ordered: ED Orders 01/20/21 17:33 XR forearm LT 2V Stat XR hand LT min 3V Stat XR hand RT min 3V Stat Vital Signs Vital signs: Vital Signs - 8 hr 01/20/21 17:28 Temperature 98.4 F Pulse Rate 102 H Respiratory Rate 16 Blood Pressure 180/109 H Pulse Oximetry 99 <Marvel CoyDO - Last Filed: 01/21/21 07:08> Orders Ordered: ED Orders 01/20/21 17:33 XR forearm LT 2V Stat XR hand LT min 3V Stat XR hand RT min 3V Stat Vital Signs Vital signs: Vital Signs - 8 hr 01/20/21 17:28 Temperature 98.4 F Pulse Rate 102 H Respiratory Rate 16 Blood Pressure 180/109 H Pulse Oximetry 99 MDM - Extremity Injury (Upper) <Leonard Burden PA-C - Last Filed: 01/20/21 18:12> MDM Narrative Medical decision making narrative: No obvious fractures noted on x-ray. Small avulsion fracture noted on left hand but patient does not have any correlating symptoms to this location. Mechanism of injury is consistent with mechanical fall. She denies any trauma to her head or neck. I do not suspect any other significant conditions that contributed to her fall at this time. Recommend ice, use of acetaminophen or ibuprofen as needed for pain management. Patient verbalizes understanding and agrees to plan and has no further concerns at this time. Thank you A [id number] system was used with the dictation of this note. Please disregard any spelling or grammatical errors. Discharge Plan Departure Patient Disposition: Home Clinical Impression: Fall Qualifiers: Encounter type: initial encounter Qualified Code(s): W19.XXXA - Unspecified fall, initial encounter Contusion of hand Qualifiers: Encounter type: initial encounter Laterality: unspecified laterality Qualified Code(s): S60.229A - Contusion of unspecified hand, initial encounter Activity Restrictions/Additional Instructions: It was very nice to meet you this evening. No obvious acute fractures were noted on x-ray. Recommend applying ice and using acetaminophen or ibuprofen as needed for pain management. Please follow-up with your PCP if symptoms fail to improve as expected. Thank you Leonard Burden PA-C Prescriptions: No Action metoprolol tartrate 25 mg tablet 25 mg PO BID Qty: 60 RF: 1 ipratropium-albuterol 0.5 mg-3 mg(2.5 mg base)/3 mL solution for nebulization 3 ml INHALATION Q4H PRN (Reason: shortness of breath or wheezing) Qty: 180 RF: 0 levothyroxine 112 mcg tablet See Rx Instructions .ROUTE .COMPLEX Qty: 90 RF: 1 albuterol sulfate 2.5 mg /3 mL (0.083 %) solution for nebulization 2.5 mg INHALATION Q4-6H PRN (Reason: bronchospasm) Qty: 90 RF: 3 acyclovir 400 mg tablet 400 mg PO TID PRN (Reason: Cold Sores) Qty: 30 RF: 2 Ventolin HFA 90 mcg/actuation HFA aerosol inhaler 2 puff INHALATION Q4HP PRN (Reason: shortness of breath or wheezing) Qty: 1 RF: 5 bupropion HCl 150 mg tablet extended release 24 hr See Rx Instructions .ROUTE .COMPLEX Qty: 90 RF: 0 quetiapine 25 mg tablet See Rx Instructions .ROUTE .COMPLEX Qty: 60 RF: 0 duloxetine 60 mg capsule,delayed release(DR/EC) See Rx Instructions .ROUTE .COMPLEX Qty: 90 RF: 0 amitriptyline 75 mg tablet See Rx Instructions .ROUTE .COMPLEX Qty: 60 RF: 0 tizanidine 4 mg tablet 4 mg PO TIDP PRN (Reason: muscle spasticity) Qty: 90 RF: 2 pregabalin 200 mg capsule 200 mg PO TID Qty: 90 RF: 1 oxycodone-acetaminophen 5-325 mg tablet See Rx Instructions PO .COMPLEX Qty: 180 RF: 0 (DME) inhalational spacing device [Timmy Aerosol [place] Enhancer] spacer See Dose Instructions .ROUTE .MEDSUPPLY Qty: 1 RF: 0 budesonide 1 mg/2 mL suspension for nebulization 1 mg inhalation BID Qty: 120 RF: 0 cholecalciferol (vitamin D3) 1,250 mcg (50,000 unit) capsule 50,000 unit PO QWEEK Qty: 12 RF: 0 Referrals: Rebeca Meyer DO [Primary Care Provider] - <Marvel Coy DO - Last Filed: 01/21/21 07:08> Cosign ED Attending Cosignature Attestation: Dr Coy Co-Sign Statement: I was available for consultation during this patient's emergency department visit. This chart is signed by myself for administrative purposes only. I did not have direct contact with this patient during this visit. They were seen independently by the APC.
[2021-01-20 18:14] VITALS: BP 165/90; PULSE 96; RESP 18; O2SAT 97
== END 2021-01-20 18:18 | disposition home or self-care (01) ==
PROVIDERS: Emergency Provider Physician Assistant; PCP Family Medicine
DX: S60.221A Contusion of right hand, initial encounter (principal); W01.190A Fall on same level from slipping, tripping and stumbling with subsequent striking against furniture, initial encounter
CPT/HCPCS: 73090; 73130; 99281; 99283

== ENCOUNTER → 2021-01-23 16:09 | Outpatient (CLI) | payer OTHER, MEDICAID, SELFPAY ==
[2020-11-13 15:48] VITALS: BMI 52.0
[2021-01-23 18:04] LABS: Alanine Aminotransferase 24 IU/L (<35); Albumin 4.5 g/dL (3.5-5.0); Albumin Globulin Ratio 1.5 (1.0-2.8); Alkaline Phosphatase 123 U/L (38-126); Aspartate Aminotransferase 27 IU/L (14-36); BUN Creatinine Ratio 19.4 (6-22); Bilirubin Total 0.5 mg/dL (0.2-1.3); Blood Urea Nitrogen 14 mg/dL (7-17); Calcium 9.7 mg/dL (8.4-10.2); Carbon Dioxide 34 mmol/L (22-32); Chloride 102 mmol/L (98-107); Estimated Glomerular Filt Rate > 60.0 mL/min (>60); Globulin 3.1 g/dL (1.7-4.1); Glucose 86 mg/dL (70-100); HEMOLYSIS < 15 (0-50); Potassium 4.3 mmol/L (3.4-5.1); Sodium 140 mmol/L (137-145); Total Protein 7.6 g/dL (6.3-8.2)
[2021-01-23 18:17] LABS: Vitamin D 25 Hydroxy (D3) 33.9 ng/mL (30.0-100.0)
[2021-01-25 19:20] LABS: C-Telopeptide, Serum 86 pg/mL (.)
== END ==
PROVIDERS: PCP Family Medicine; Referring Provider Family Medicine; Visit Provider Family Medicine
DX: I10 Essential (primary) hypertension (principal); M88.9 Osteitis deformans of unspecified bone; R73.01 Impaired fasting glucose
CPT/HCPCS: 36415; 80053; 82306; 82523

== ENCOUNTER → 2021-02-01 11:30 | Outpatient (CLI) | payer OTHER, MEDICAID, SELFPAY ==
[2020-11-13 15:48] VITALS: BMI 52.0
== END ==
PROVIDERS: PCP Family Medicine; Referring Provider Orthopaedic Surgery; Visit Provider Orthopaedic Surgery
DX: M54.10 Radiculopathy, site unspecified (principal); M48.061 Spinal stenosis, lumbar region without neurogenic claudication; M43.16 Spondylolisthesis, lumbar region; R29.898 Other symptoms and signs involving the musculoskeletal system; M51.26 Other intervertebral disc displacement, lumbar region
CPT/HCPCS: 95886; 95909

== ENCOUNTER → 2021-03-09 14:49 | Outpatient (CLI) | payer OTHER, MEDICAID, SELFPAY ==
[2020-11-13 15:48] VITALS: BMI 52.0
== END ==
PROVIDERS: PCP Family Medicine; Visit Provider Nurse Practitioner
DX: R30.0 Dysuria (principal)
CPT/HCPCS: 81002; 87077; 87086; 87186

== ENCOUNTER → 2021-03-15 17:42 | Outpatient (CLI) | payer OTHER, MEDICAID, SELFPAY ==
[2020-11-13 15:48] VITALS: BMI 52.0
--- NOTE | 2021-03-15 | DI.MRI.S_ITS ---
PROCEDURE: MR KNEE LT WO CON INDICATIONS: Unilateral primary osteoarthritis, left knee TECHNIQUE: Noncontrast sagittal PD fast spin echo and T2 fast spin echo with fat saturation, sagittal 3-D FLASH with fat saturation; coronal T1 spin echo and PD fast spin echo with fat saturation, and axial PD fast spin echo with fat saturation through the knee. COMPARISON: [facility], CR, XR KNEE RT 3V, 10/03/2019, 13:48. [facility], CR, XR KNEE LT 3V, 04/15/2019, 15:29. [facility], [place], [place] BONE SPECT, 09/04/2020, 16:27. [facility], CT, CT KNEE LEFT WITHOUT CONTRAST, 01/29/2021, 14:39. [facility], MR, MR KNEE LT WO CON, 05/26/2019, 17:06. FINDINGS: Image quality: Excellent. Menisci: There is medial meniscal extrusion. There is complex tear involving the body and anterior horn of the medial meniscus. The lateral meniscus demonstrates normal morphology and internal signal. The meniscal root ligaments appear intact. Cruciate ligaments: The anterior and posterior cruciate ligaments appear intact. Medial structures: There is bowing of the medial collateral ligament, unchanged. Mild sprain (grade 1) of the distal medial meniscus without rupture. The semimembranosus tendon insertions and meniscocapsular junction appear intact. Visualized portions of the pes anserinus tendons appear normal. No abnormal bursal fluid. Lateral structures: The lateral collateral ligament, long and short heads of the biceps femoris tendon appear intact. The popliteus tendon appears normal. Iliotibial band appears normal. Anterior structures: The quadriceps and patellar tendons appear intact. Patellar alignment is normal. No femoral trochlear dysplasia or ventral trochlear prominence. No edema in the infrapatellar fat pad. Bones and cartilage: No bone marrow contusions or fractures. There is a 6 x 7 mm subcortical nodule in the distal femur associated with the anterior cortex just above the femoral condyle, most likely a benign cyst. There is mild focal cortical thinning but no periosteal reaction. When compared with the last exam, there is no significant change. There is tricompartmental chondral malacia, most pronounced in the medial femorotibial compartment. There is near denudation of articular surface of the weight-bearing portion of the medial femoral condyle and medial tibial plateau with associated prominent periarticular osteophytes, consistent with severe osteoarthritis which is significantly worsened since the last MRI exam. Joint space: There is small knee joint fluid. There is a tiny Law's cyst, significantly decreased in size. Normal appearing synovial plicae are incidentally noted. IMPRESSION: 1. Complex tear of the body and anterior horn of the medial meniscus and medial meniscal extrusion. 2. Accelerated secondary osteoarthritic changes involving the medial femorotibial compartment since the last MRI dated 05/26/2019. There is near cartilage denudation of the weight-bearing portion of the medial femoral condyle and medial tibial plateau with prominent periarticular osteophytes. 3. Bowing of the MCL with grade 1 sprain in the distal MCL. 4. Small knee joint effusion. 5. There is a small Law's cyst, significantly decreased in size since the last exam. 6. A 6 x 7 mm benign appearing subcortical nodule in the anterior cortex of the distal femur above the femoral condyle, most likely a cyst. Dictated by: Medina Yuen M.D. on 03/16/2021 at 8:35 Approved by: Medina Yuen M.D. on 03/16/2021 at 8:58
--- NOTE | 2021-03-15 | DI.MRI.S_ITS ---
PROCEDURE: MR PELIS WO/W CON INDICATIONS: Unilateral primary osteoarthritis, left knee TECHNIQUE: Noncontrast coronal T1 spin echo and STIR, sagittal T1 spin echo with fat saturation and STIR, axial T1 spin echo and T2 fast spin echo with fat saturation. After the administration of contrast, axial/sagittal/coronal T1 spin echo with fat saturation through the pelvis. Diffusion weighted images and ADC also performed through the pelvis. COMPARISON: [facility], CR, XR PELVIS 3+ VIEWS, 03/06/2021, 16:14. FINDINGS: Image quality: There is mild motion artifact. Bones: The visualized bone marrow demonstrates normal overall signal. No fractures or bone contusions. There is moderate degenerative disc disease at the lumbosacral junction with reactive endplate fatty change and edema as well as associated minimal enhancement. No suspicious intraosseous mass lesions or enhancement. No discrete bony erosions. No abnormal cortical thickening to suggest Paget's disease. Soft tissues: No soft tissue masses are visualized. The gluteal tendons appear intact at the greater trochanters with mild peritendinous edema, left greater than right, compatible with peritendinitis but no discrete bursal fluid collections. There is edema and mild enhancement within the left quadratus femoris muscle between the ischial tuberosity and lesser trochanter of the proximal femur. 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 The visualized pelvis demonstrates no intraperitoneal free fluid. There are few left ovarian cysts including a thick-walled cyst measuring up to 2.1 cm. Bladder demonstrates normal wall thickness. Visualized bowel loops are normal in caliber. Bladder demonstrates normal wall thickness IMPRESSION: 1. No suspicious intraosseous mass lesions or enhancement. No evidence of Paget's disease. 2. Muscle edema and mild enhancement within the left quadratus femoris compatible with sequelae of ischiofemoral impingement. Recommend correlation clinically. 3. Mild peritendinitis along the gluteal tendons bilaterally, left greater than right. Dictated by: Amish Deutsch M.D. on 03/16/2021 at 9:11 Approved by: Amish Deutsch M.D. on 03/16/2021 at 9:24
== END ==
PROVIDERS: PCP Family Medicine; Referring Provider Orthopaedic Surgery; Visit Provider Orthopaedic Surgery
DX: M17.12 Unilateral primary osteoarthritis, left knee (principal); R60.0 Localized edema; M76.02 Gluteal tendinitis, left hip; S83.232A Complex tear of medial meniscus, current injury, left knee, initial encounter; S83.412A Sprain of medial collateral ligament of left knee, initial encounter; M71.22 Synovial cyst of popliteal space [Baker], left knee
CPT/HCPCS: 72197; 73721; A9579

== ENCOUNTER → 2021-05-17 10:49 | Outpatient (CLI) | payer OTHER, MEDICAID, SELFPAY ==
[2020-11-13 15:48] VITALS: BMI 52.0
--- NOTE | 2021-05-17 10:50 | DI.NM.S_ITS ---
PROCEDURE: [place] BONE SPECT RADIOPHARMACEUTICAL: 20.2 mCi Tc-99m MDP IV. INDICATIONS: Osteitis deformans of unspecified bone TECHNIQUE: Delayed bone scintigrams were obtained of the region of interest 3-4 hours after intravenous administration of Tc-99m MDP. Additional tomographic (SPECT) imaging was performed and displayed in axial, coronal, and sagittal planes. COMPARISON: [facility], CT, CT PEL WO CON, 05/17/2021, 11:06. [place], [place], [place] BONE SCAN WHOLE BODY, 05/17/2021, 14:32. [place], [place] BONE SPECT, 09/04/2020, 16:27. FINDINGS: Increased uptake in the left hemipelvis seen on the last SPECT bone scan is no longer present. There foci of increased activity in lower lumbar spine most compatible with degenerative disc and facet disease. IMPRESSION: 1. Abnormal uptake in the left hemipelvis seen on the comparison SPECT bone scan is no longer present, likely reflecting treatment response. Recommend clinical correlation. 2. Disc and facet disease in the lower lumbar spine. Dictated by: Medina Yuen M.D. on 05/17/2021 at 17:03 Approved by: Medina Yuen M.D. on 05/17/2021 at 17:08
--- NOTE | 2021-05-17 10:51 | DI.CT.S_ITS ---
PROCEDURE: CT HEAD/BRAIN WO CON INDICATIONS: Osteitis deformans of unspecified bone TECHNIQUE: Noncontrast 4.5 mm thick angled axial sections acquired from the foramen magnum to the vertex, with coronal and sagittal reformats. For radiation dose reduction, the following was used: automated exposure control, adjustment of mA and/or kV according to patient size. COMPARISON: None. FINDINGS: Image quality: Excellent. CSF spaces: Basal cisterns are patent. No extra-axial fluid collections. Ventricles are normal in size and shape. Brain: No midline shift. No intracranial masses or hemorrhage. Steiner-white matter interface is normal. Skull and face: No findings of Paget's disease in skull or skull base. Grossly normal appearance of the internal auditory canals, bony labyrinth and otic capsule. Sinuses: Visualized sinuses and mastoids are clear. IMPRESSION: Normal CT examination of the head. Please note that temporal bone protocol was not performed, and a dedicated temporal bone CT could be considered if there is concern for conductive hearing loss. Dictated by: Amadou Kidd M.D. on 05/17/2021 at 11:17 Approved by: Amadou Kidd M.D. on 05/17/2021 at 11:22
--- NOTE | 2021-05-17 10:56 | DI.CT.S_ITS ---
PROCEDURE: CT PEL WO CON INDICATIONS: Osteitis deformans of unspecified bone TECHNIQUE: Noncontrast 3 mm axial sections acquired through the bony pelvis, with coronal and sagittal reformatting. COMPARISON: [facility], CT, CT CHEST ABD PEL W CON, 10/03/2019, 12:30. [facility], MR, MR PELVIS WO/W CON, 03/15/2021, 18:30. FINDINGS: Image quality: Excellent. Bones: Sclerosis and cortical thickening involving the left iliac wing, left posterosuperior acetabulum, and left ischiumis not significantly changed. Soft tissues: Visualized bowel loops and vasculature are normal in caliber. No regional adenopathy. No fluid collections. Left ovarian cyst measuring 40 mm diameter. IMPRESSION: 1. 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 2. 40 mm left ovarian cyst. Dictated by: Humza Brothers M.D. on 05/17/2021 at 11:30 Approved by: Humza Brothers M.D. on 05/17/2021 at 11:32
== END ==
PROVIDERS: PCP Family Medicine; Referring Provider Orthopaedic Surgery; Visit Provider Orthopaedic Surgery
DX: M88.9 Osteitis deformans of unspecified bone (principal); M54.10 Radiculopathy, site unspecified; M43.16 Spondylolisthesis, lumbar region; R29.898 Other symptoms and signs involving the musculoskeletal system; M51.26 Other intervertebral disc displacement, lumbar region; E66.01 Morbid (severe) obesity due to excess calories; V89.2XXD Person injured in unspecified motor-vehicle accident, traffic, subsequent encounter
CPT/HCPCS: 70450; 72192; 78305; A9503

== ENCOUNTER → 2021-06-05 10:16 | Outpatient (CLI) | payer OTHER, MEDICAID, SELFPAY ==
[2020-11-13 15:48] VITALS: BMI 52.0
--- NOTE | 2021-06-05 10:18 | DI.RAD.S_ITS ---
PROCEDURE: XR KNEE RT 3V INDICATIONS: pain, fall TECHNIQUE: 3 views of the knee were acquired. COMPARISON: [facility], , XR KNEE RT 3V, 10/03/2019, 13:48. FINDINGS: Bones: No acute, displaced fracture. At least moderate joint space narrowing of the medial compartment, which may be related to positioning. The lateral and patellofemoral compartment joint spaces are maintained. Soft tissues: Small to moderate joint effusion. No suspicious soft tissue calcifications. IMPRESSION: No acute osseous abnormality. Dictated by: Benitez Trevino M.D. on 06/05/2021 at 13:19 Approved by: Benitez Trevino M.D. on 06/05/2021 at 13:21
== END ==
PROVIDERS: PCP Family Medicine; Referring Provider Family Medicine; Visit Provider Family Medicine
DX: M25.561 Pain in right knee (principal)
CPT/HCPCS: 73562

== ENCOUNTER → 2021-06-19 10:42 | Outpatient (CLI) | payer OTHER, MEDICAID, SELFPAY ==
[2021-06-05 10:13] VITALS: BMI 52.0
[2021-06-19 13:55] LABS: COVID19 -Nasal RAPID Negative (Negative)
== END ==
PROVIDERS: PCP Family Medicine; Visit Provider Physical Medicine & Rehabilitation
DX: Z20.822 Contact with and (suspected) exposure to COVID-19 (principal)
CPT/HCPCS: 87635; C9803

== ENCOUNTER 2021-06-21 13:08 | Outpatient (CLI) | payer OTHER, MEDICAID, SELFPAY ==
[2021-06-05 10:13] VITALS: BMI 52.0
[2021-06-21] VITALS (9 sets, daily range): BP systolic 144–177; BP diastolic 95–111; PULSE 85–98; RESP 12–20; TEMP 36.8; O2SAT 94–99
--- NOTE | 2021-06-21 13:11 | DI.RAD.S_ITS ---
PROCEDURE: PAIN L INTERLAMINAR/CAUDAL INJ INDICATIONS: SPONDYLOSIS COMPARISON: None. FINDINGS: Fluoroscopic spot filming was performed to verify placement of spinal needles at the L5-S1 interlaminar space level(s), as labeled on the films. Appropriate location(s) of the needle tip(s) was confirmed by injection of iodinated contrast. IMPRESSION: Access needle at the L5-S1 interlaminar space. Dictated by: Ainsley Kidd MD, PhD on 06/21/2021 at 16:01 Approved by: Ainsley Kidd MD, PhD on 06/21/2021 at 16:02
[2021-06-21] MEDS: fentaNYL 250 MCG/5 ML INJ IV (14:25)
[2021-06-21] MEDS: MIDAZOLAM 5 MG/5 ML VIAL IV (14:28)
[2021-06-21] MEDS: IOPAMIDOL 15 ML VIAL 3 ML INJ (14:29)
[2021-06-21] MEDS: BUPIVACAINE 0.25% (PF) VIAL 2 ML INJ (14:29)
[2021-06-21] MEDS: DEXAMETHASONE 10 MG/ML VIAL 20 MG INJ (14:30)
[2021-06-21] MEDS: BETAMETHASONE 30 MG/5 ML MDV 6 MG INJ (14:30)
--- NOTE | 2021-06-21 14:36 | PM.PROC.IR.1 ---
Date/Time/Diagnoses Date of procedure: 06/21/21 Time of procedure: 14:36 Pre-procedure diagnosis: 1. HNP WITH RADICULAR FEATURES, 2. MULTILEVEL CENTRAL STENOSIS This procedure is found to meet the Governor's proclamation 20-24.2 regarding non urgent procedures. This patient meets multiple criteria for the procedure including continuing or worsening of significant or severe pain, combined with further deterioration of the patient's condition or overall health as well as delay in treatment would be expected to result in less positive ultimate medical outcome. Therefore the decision to perform the procedure in an outpatient hospital setting is found to be in accordance with guidelines of the proclamation. Post-procedure diagnosis: same Procedure Notes Procedure: 1. FLUOROSCOPICALLY GUIDED CONTRAST CONTROLLED INTERLAMINAR EPIDURAL STEROID INJECTION - L5/S1 Indications: Alina is referred by Dr. Arreguin for treatment of Bilateral Foraminal Stenosis L>R LE symptoms. Physician: Lei Ogden Total Fluoroscopy time (seconds): 3 Total sedation minutes: 7 Complications: none Procedure in detail & Post-procedure care: FINDINGS Multilevel Central Spinal Stenosis with Nerve Root Compression DESCRIPTION OF PROCEDURE Fluoroscopically guided, contrast-controlled L5/S1 translaminar epidural steroid injection. Following review of allergy and review of potential side effects and complications, including, but not necessarily limited to, infection, allergic reaction, local tissue breakdown, temporary as well as permanent nerve injury, paralysis, stroke and possible , the patient indicated that the patient understood and agreed to proceed. An informed consent document was signed by the patient, witnessed by a nurse, and placed in the patient's chart. Additionally, other treatment options including modalities, medications, and physical therapy were reviewed with the patient. After review of previous anaesthesic history and IV conscious sedation the patient was deemed safe to proceed with today?s procedure with IV conscious sedation as ASA class II designation. Safety time-out was performed to confirm patient ID, procedure to be performed and site of procedure. IV sedation was accomplished with a combination of 3mg of Versed and 50mcg of Fentanyl administered by the RN after DO order, titrated to patient comfort during the course of the procedure while the patient remained responsive to all verbal commands. In the prone position, following sterile prep and drape of the lumbar region, the L5/S1 translaminar space was identified fluoroscopically. The skin was anesthetized via a 25-gauge, 1.5-inch needle with 1% lidocaine solution. At this point, a 22-gauge short bevel spinal needle was atraumatically introduced and advanced under fluoroscopic guidance into the region of the L5/S1 translaminar space. Depth was confirmed on lateral view. Radiological data, including multiple fluoroscopic views of the lumbar spine, reveal a spinal needle at the L5/S1 translaminar space. Lateral views then show placement of the needle in the epidural space. Subsequent views show contrast material flowing superiorly and inferiorly in the epidural space. No vascular or intrathecal uptake is observed. At this point, using loss of resistance technique with saline and air, the epidural space was entered. This was confirmed following negative aspiration with injection of approximately 1.5cc of Isovue 200, showing excellent epidural flow without vascular or intrathecal uptake. At this point, 1 cc of 1% lidocaine solution combined with 3cc or 20mg of dexamethasone and 6mg of betamethasone was injected without incident. The patent tolerated the procedure without signs of symptoms of complications prior to transfer to the recovery area for further monitoring. The patient was then transferred to the recovery area where they were observed for an appropriate period of time after the injection. The patient reported a VAS score of 6 prior to the procedure and a post-procedure VAS of 0. POST OP INSTRUCTIONS The patient was provided a Pain Log to continue to record their response to the target-specific procedure prior to follow-up visit with their referring physician. Additionally, specific post-injection care instructions and a contact number to our office were provided if concerns arise regarding possible complications associated with the procedure are suspected.
== END 2021-06-21 15:05 | disposition home or self-care (01) ==
LOC: RAD 13:10
PROVIDERS: PCP Family Medicine; Referring Provider Physical Medicine & Rehabilitation; Visit Provider Physical Medicine & Rehabilitation
DX: M51.17 Intervertebral disc disorders with radiculopathy, lumbosacral region (principal); M48.07 Spinal stenosis, lumbosacral region
CPT/HCPCS: 62323; J0702; J1100; J2250; J3010

== ENCOUNTER → 2021-10-30 11:22 | Outpatient (CLI) | payer OTHER, MEDICAID, SELFPAY ==
[2021-06-25 14:37] VITALS: BMI 52.0
[2021-10-30 12:09] LABS: Add Manual Diff / Slide Review NO; Basophils Absolute Auto 0 /uL (0-100); Basophils Percent Auto 0.5 % (0-2); Eosinophils Absolute Auto 400 /uL (0-450); Eosinophils Percent Auto 4.9 % (2-4); Hematocrit 41.2 % (36-46); Hemoglobin 13.7 g/dL (12.0-16.0); Lymphocytes Absolute Auto 1700 /uL (1100-4500); Lymphocytes Percent Auto 18.2 % (25-40); Mean Corpuscular HGB Conc 33.3 % (30-36); Mean Corpuscular Hemoglobin 29.2 PG (26-34); Mean Corpuscular Volume 87.5 fL (80-100); Monocytes Absolute Auto 700 /uL (0-900); Monocytes Percent Auto 7.3 % (3-14); Neutrophils Absolute Auto 6300 /uL (1500-7000); Neutrophils Percent Auto 69.1 % (50-75); Platelet Count 294 X10^3/uL (150-400); Red Blood Cell Count 4.71 X10^6/uL (4.0-5.2); Red Cell Distribution Width 15.7 % (11.6-14.8); White Blood Cell Count 9.1 X10^3/uL (4.5-11.0)
[2021-10-30 12:41] LABS: Alanine Aminotransferase 30 IU/L (<35); Albumin 4.5 g/dL (3.5-5.0); Albumin Globulin Ratio 1.5 (1.0-2.8); Alkaline Phosphatase 116 U/L (38-126); Aspartate Aminotransferase 30 IU/L (14-36); BUN Creatinine Ratio 14.7 (6-22); Bilirubin Total 0.4 mg/dL (0.2-1.3); Blood Urea Nitrogen 14 mg/dL (7-17); Calcium 9.5 mg/dL (8.4-10.2); Carbon Dioxide 35 mmol/L (22-32); Chloride 100 mmol/L (98-107); Cholesterol 235 mg/dL (140-199); Estimated Glomerular Filt Rate > 60 mL/min (>60); Glucose 103 mg/dL (70-100); HDL Cholesterol 42 mg/dL (40-60); HEMOLYSIS < 15 (0-50); LDL Cholesterol Calculated 159 mg/dL (<100); Potassium 4.3 mmol/L (3.4-5.1); Sodium 141 mmol/L (137-145); Total Protein 7.5 g/dL (6.3-8.2); Triglycerides 171 mg/dL (35-150)
[2021-10-30 12:56] LABS: Free T3, Triiodothyronine Free 3.96 pg/mL (2.77-5.27); Free T4, Direct Thyroxine 1.29 ng/dL (0.78-2.19)
[2021-10-30 13:10] LABS: Thyroid Stimulating Hormone 3.41 uIU/mL (0.47-4.68); Vitamin D 25 Hydroxy (D3) 18.5 ng/mL (30.0-100.0)
[2021-10-30 13:42] LABS: Hemoglobin A1C% w Est Avg Glu 5.3 % (4.0-6.0)
== END ==
PROVIDERS: PCP Family Medicine; Referring Provider Family Medicine; Visit Provider Family Medicine
DX: E03.8 Other specified hypothyroidism (principal); E06.3 Autoimmune thyroiditis; E66.01 Morbid (severe) obesity due to excess calories; I10 Essential (primary) hypertension; K58.9 Irritable bowel syndrome, unspecified; M88.9 Osteitis deformans of unspecified bone; R73.01 Impaired fasting glucose; Z68.41 Body mass index [BMI] 40.0-44.9, adult
CPT/HCPCS: 36415; 80053; 80061; 82306; 83036; 84439; 84443; 84481; 85025

== ENCOUNTER 2022-01-21 00:38 | Inpatient (IN) | payer OTHER, MEDICAID, SELFPAY ==
[2021-06-25 14:37] VITALS: BMI 52.0
[2022-01-21] VITALS (18 sets, daily range): BP systolic 115–170; BP diastolic 58–93; PULSE 75–122; RESP 18–23; TEMP 36.1–37.1; O2SAT 91–94; BMI 44.9
--- NOTE | 2022-01-21 00:39 | ED_ITS ---
HPI - SOB/Dyspnea General Chief Complaint: Shortness of Breath/Dyspnea Stated Complaint: possible pneumonia Time Seen by Provider: 01/21/22 00:38 History of Present Illness HPI Narrative: 41-year-old female nonsmoker with history of asthma presents with a day or 2 of runny nose, nasal congestion cough and trouble breathing. She denies any nausea, vomiting or diarrhea. She has no chest pain, recent travel or history of blood clot. She denies any fever or chills. She states that minimal exertion makes her significantly more short of breath. She denies any recent change in her meds and states that she took multiple albuterol nebulizers tonight with minimal to no relief. She states it has been at least a year since she had been on any steroids. Related Data Previous Rx's Medication Instructions Recorded tizanidine 4 mg tablet 4 mg PO TIDP PRN muscle spasticity 04/22/16 #270 tabs inhalational spacing device (Timmy #1 ea 02/05/18 Aerosol Beadle Enhancer spacer) albuterol sulfate 2.5 mg/3 mL 2.5 mg (3 mL) inhalation Q4-6H PRN 11/01/20 (0.083 %) solution for nebulization bronchospasm #90 mL ipratropium 0.5 mg-albuterol 3 mg 3 ml inhalation Q4H PRN shortness 01/22/21 (2.5 mg base)/3 mL nebulization of breath or wheezing #180 mL soln cholecalciferol (vitamin D3) 1,250 50,000 unit PO QWEEK #12 caps 01/31/21 mcg (50,000 unit) capsule amitriptyline 75 mg tablet 150 mg PO BEDTIME #180 tabs 03/28/21 levothyroxine 112 mcg tablet 112 mcg PO DAILY #90 tabs 03/28/21 quetiapine 25 mg tablet 75 mg PO .qhs #90 tabs 06/26/21 metoprolol tartrate 25 mg tablet 25 mg PO BID #180 tabs 07/25/21 lidocaine 5 % topical patch 1 patch topical DAILY #15 ea 08/08/21 duloxetine 60 mg capsule,delayed See Rx Instructions .Route 10/22/21 release .COMPLEX #90 caps albuterol sulfate 90 mcg/actuation 2 puff inhalation Q4HP PRN 11/09/21 aerosol inhaler (Ventolin HFA) shortness of breath or wheezing #1 ea budesonide 1 mg/2 mL suspension 1 mg (2 mL) inhalation BID #120 mL 11/09/21 for nebulization oxycodone-acetaminophen 10 mg-325 See Rx Instructions .Route 01/10/22 mg tablet .COMPLEX #120 tabs pregabalin 200 mg capsule See Rx Instructions .Route 01/10/22 .COMPLEX #270 caps bupropion HCl 150 mg 24 hr tablet, See Rx Instructions .Route 01/14/22 extended release .COMPLEX #90 tabs Allergies Allergy/AdvReac Type Severity Reaction Status Date / Time Penicillins [PENICILLINS] Allergy Unknown Verified 08/08/21 13:38 fluconazole [From DIFLUCAN] AdvReac Intermediate vomiting Verified 08/08/21 13:38 and abd pain codeine [CODEINE] AdvReac Mild NAUSEA Verified 08/08/21 13:38 Review of Systems Review of Systems Narrative: GENERAL: Denies chills, fatigue, malaise, fever, sweats. HEENT: See HPI RESPIRATORY: See HPI CARDIOVASCULAR: Denies chest pain, palpitations, orthopnea, edema, GASTROINTESTINAL: Denies nausea, vomiting, abdominal pain, diarrhea, constipation, melena. : Denies dysuria, frequency, incontinence, hematuria, urinary retention. MUSCULOSKELETAL: denies weakness, joint pain, or bony pain SKIN: Denies rash, skin lesions, or other NEUROLOGIC: Denies weakness, headache, numbness, change in speech, confusion, seizures, incoordination. PSYCHIATRIC: No concerning psychosocial issues. 12 point review of systems is negative except for those stated above Patient History Medical History Abrasion, corneal Acute pain of right knee Asthma Bilateral chronic knee pain Depression Diverticular disease (~2015) Essential hypertension Fibromyalgia (~05/2017) Gestational diabetes mellitus (GDM) (10/27/14) History of colon polyps History of PCR DNA positive for HSV1 (~2014) Hypothyroidism (~2008) Insomnia disorder, with non-sleep disorder mental comorbidity Irritable bowel syndrome Lymphedema of arm Major depressive disorder Migraines Morbid obesity with body mass index (BMI) of 40.0 to 44.9 in adult (11/08/10) Obstructive sleep apnea on CPAP Paget's disease of bone Rheumatoid arthritis UTI (urinary tract infection) Surgical History Status post delivery (12/30/14) Status post laparoscopic supracervical hysterectomy (10/23/15) Status post laparoscopy (01/19/16) Status post surgery (07/07/12) Status post tubal ligation (12/30/14) Family History Grandmother Stroke Grandfather Heart disease Cancer Father Hypertension Mother Hypothyroidism (acquired) Social History household members: spouse and children Smoking Status: Current some day smoker alcohol intake: current Smoking Status: Current some day smoker tobacco type: cigarettes and vaping alcohol intake frequency: a few times a week Substance Use Type: marijuana Exam Narrative Exam Narrative: GENERAL: [41] year old patient appears stated age. Well-developed patient, in moderate distress. With obvious increased work of breathing, tachycardia, tachy pnea and hypoxemia (85%) HEAD: Atraumatic. Normocephalic. EYES: Pupils equal round and reactive. Extraocular motions intact. No scleral icterus. No injection or drainage. ENT: Nose without bleeding, purulent drainage. Throat without erythema, tonsillar hypertrophy or exudate. Airway patent. NECK: Trachea midline. Non tender CARDIOVASCULAR: Tachycardic but regular rhythm without murmurs, gallops, or rubs. RESPIRATORY: Increased work of breathing, decreased breath sounds in bilateral bases with inspiratory and expiratory wheeze in the apices GASTROINTESTINAL: Abdomen soft, non-tender, nondistended. EXTREMITIES: No edema or joint tenderness. BACK: Nontender without deformity or crepitance. No flank tenderness. NEURO: AOx3. SKIN: No rash or erythema of visible areas Initial Vital Signs Initial Vital Signs: Vital Signs Temperature 98.5 F 01/21/22 00:48 Pulse Rate 116 H 01/21/22 00:48 Respiratory Rate 22 01/21/22 00:48 Blood Pressure 170/84 H 01/21/22 00:48 Pulse Oximetry 92 01/21/22 00:48 Oxygen Delivery Method 01/21/22 00:48 Course Orders Ordered: ED Orders 01/21/22 00:47 XR chest 2V Stat 01/21/22 01:00 COVID19 -Nasal RAPID/Pre-Proc Stat Complete Blood Count AUTO DIFF Stat Comprehensive Metabolic Panel Stat D Dimer Stat Lactate (Lactic Acid) Stat Magnesium Stat NT-proBNP (BNP-Adult 18+) Stat Procalcitonin Stat Troponin & CK Cardiac Panel Stat 01/21/22 01:29 ABG [Arterial Blood Gas] Stat 01/21/22 01:37 Blood Culture Stat Albuterol/Ipratropium (Albuterol/Ipratropium 3 Ml Ampul) 3 ml INH [id number] [facility] Sodium Chloride (Normal Saline 0.9%) 1,365 mls @ 455 mls/hr 30 ml/kg infuse over 3 hr (1365 ml) IV NOW ONE Stop: 01/21/22 04:33 Last Admin: 01/21/22 01:41 Dose: 455 mls/hr Documented By: DIMITRY Ceftriaxone Sodium 1,000 mg/ (Sodium Chloride) 100 mls @ 200 mls/hr IV Q24H [facility] Potassium Chloride/Sodium Chloride (Ns With Kcl 20 Meq) 1,000 mls @ 100 mls/hr IV CONT [facility] Levothyroxine Sodium (Levothyroxine 112 Mcg Tablet) 112 mcg PO DAILY [facility] Magnesium Hydroxide (Magnesium Hydroxide 30 Ml Udc) 30 ml PO DAILY PRN PRN Reason: Constipation Methylprednisolone (Methylprednisolone 40 Mg/Ml Vial) 40 mg IV Q6HR [facility] Morphine Sulfate (Morphine 2 Mg/Ml Inj) 2 mg IV Q4H PRN PRN Reason: Breakthrough pain only (8-10) Ondansetron HCl (Ondansetron 4 Mg/2 Ml Inj) 4 mg IV Q8HR PRN PRN Reason: Nausea And Vomiting Oxycodone HCl (Oxycodone Ir 5 Mg Tablet) 5 mg PO Q4HR PRN PRN Reason: Pain, Moderate (4-6) Potassium Chloride (Potassium Chloride 20 Meq/15 Ml Udc) 20 meq PO BIDWM [facility] Quetiapine Fumarate (Quetiapine 25 Mg Tablet) 75 mg PO .qhs [facility] Discontinued Medications Albuterol (Albuterol 2.5 Mg/3 Ml Neb (Adult)) 2.5 mg INH NOW ONE Stop: 01/21/22 01:08 Last Admin: 01/21/22 01:07 Dose: 2.5 mg Documented By: UTE Albuterol (Albuterol 2.5 Mg/3 Ml Neb (Adult)) 20 mg INH NOW ONE Stop: 01/21/22 01:31 Last Admin: 01/21/22 01:46 Dose: 20 mg Documented By: UTE Albuterol/Ipratropium (Albuterol/Ipratropium 3 Ml Ampul) 3 ml INH NOW ONE Stop: 01/21/22 00:48 Last Admin: 01/21/22 01:07 Dose: 3 ml Documented By: UTE Dexamethasone (Dexamethasone 10 Mg/Ml Vial) 10 mg IV NOW ONE Stop: 01/21/22 00:48 Last Admin: 01/21/22 00:54 Dose: 10 mg Documented By: DIMITRY Sodium Chloride (Normal Saline 0.9%) 1,000 mls @ 1,000 mls/hr IV BOLUS ONE Stop: 01/21/22 01:46 Last Admin: 01/21/22 00:55 Dose: 1,000 mls/hr Documented By: DIMITRY Magnesium Sulfate (Magnesium Sulfate) 2 gm in 50 mls @ 150 mls/hr IV NOW ONE Stop: 01/21/22 01:48 Last Admin: 01/21/22 01:40 Dose: 150 mls/hr Documented By: DIMITRY Co-signed By: BLANE Ceftriaxone Sodium 2,000 mg/ (Sodium Chloride) 100 mls @ 200 mls/hr IV NOW ONE Stop: 01/21/22 01:35 Last Admin: 01/21/22 01:51 Dose: 200 mls/hr Documented By: DIMITRY Azithromycin 500 mg/ Dextrose 250 mls @ 250 mls/hr IV NOW ONE Stop: 01/21/22 01:35 Potassium Chloride (Potassium Chloride 20 Meq/15 Ml Udc) 40 meq PO NOW ONE Stop: 01/21/22 02:17 Reevaluation(s) Reevaluation #1: Patient has minimal if any improvement after 1st couple rounds of bronchodilators. Steroids have been ordered Vital Signs Vital signs: Vital Signs - 8 hr 01/21/22 00:48 01/21/22 01:07 01/21/22 01:46 Temperature 98.5 F Pulse Rate 116 H 116 H 116 H Respiratory Rate 22 Blood Pressure 170/84 H Pulse Oximetry 92 92 Oxygen Delivery Method Room Air Nasal Cannula Oxygen Flow Rate 2 01/21/22 00:56 01/21/22 01:00 01/21/22 01:33 Temperature Pulse Rate 112 H 112 H 122 H Respiratory Rate Blood Pressure Pulse Oximetry 94 92 93 Oxygen Delivery Method Oxygen Flow Rate MDM - SOB/Dyspnea Lab Data Result diagrams: 01/21/22 01:00 01/21/22 01:00 Labs: Lab Results 01/21/22 01/21/22 01/21/22 Range/Units 01:00 01:00 01:00 WBC 9.6 (4.5-11.0) X10^3/uL RBC 4.41 (4.0-5.2) X10^6/uL Hgb 13.0 (12.0-16.0) g/dL Hct 38.8 (36-46) % MCV 88.1 (80-100) fL MCH 29.4 (26-34) PG MCHC 33.4 (30-36) % RDW 16.1 H (11.6-14.8) % Plt Count 253 (150-400) X10^3/uL Neut % (Auto) 78.7 H (50-75) % Lymph % (Auto) 9.5 L (25-40) % [place] % (Auto) 8.0 (3-14) % Eos % (Auto) 3.3 (2-4) % Baso % (Auto) 0.5 (0-2) % Neut # (Auto) 7600 H (5922-6098) /uL Lymph # (Auto) 900 L (7618-1614) /uL [place] # (Auto) 800 (0-900) /uL Eos # (Auto) 300 (0-450) /uL Baso # (Auto) 0 (0-100) /uL D-Dimer 432 (<500) ng/ml Sodium (137-145) mmol/L Potassium (3.4-5.1) mmol/L Chloride (98-107) mmol/L Carbon Dioxide (22-32) mmol/L BUN (7-17) mg/dL Creatinine (0.52-1.04) mg/dL Estimated GFR (>60) mL/min BUN/Creatinine Ratio (6-22) Glucose (70-100) mg/dL Lactate (0.7-2.1) mmol/L Calcium (8.4-10.2) mg/dL Magnesium (1.6-2.3) mg/dL Total Bilirubin (0.2-1.3) mg/dL AST (14-36) IU/L ALT (<35) IU/L Alkaline Phosphatase (38-126) U/L Total Creatine Kinase (30-135) U/L CK-MB (CK-2) (<2.37) ng/mL CK-MB (CK-2) Rel Index (1.5-5.0) % Troponin I (0.01-0.034) ng/mL NT-Pro-B Natriuret Pep (<125) pg/mL Total Protein (6.3-8.2) g/dL Albumin (3.5-5.0) g/dL Globulin (1.7-4.1) g/dL Albumin/Globulin Ratio (1.0-2.8) Procalcitonin 0.10 (<0.5) ng/mL SARS-CoV-2 (PCR) (Negative) 01/21/22 01/21/22 01/21/22 Range/Units 01:00 01:00 01:00 WBC (4.5-11.0) X10^3/uL RBC (4.0-5.2) X10^6/uL Hgb (12.0-16.0) g/dL Hct (36-46) % MCV (80-100) fL MCH (26-34) PG MCHC (30-36) % RDW (11.6-14.8) % Plt Count (150-400) X10^3/uL Neut % (Auto) (50-75) % Lymph % (Auto) (25-40) % [place] % (Auto) (3-14) % Eos % (Auto) (2-4) % Baso % (Auto) (0-2) % Neut # (Auto) (3786-5284) /uL Lymph # (Auto) (8876-6855) /uL [place] # (Auto) (0-900) /uL Eos # (Auto) (0-450) /uL Baso # (Auto) (0-100) /uL D-Dimer (<500) ng/ml Sodium 140 (137-145) mmol/L Potassium 2.9 L (3.4-5.1) mmol/L Chloride 97 L (98-107) mmol/L Carbon Dioxide 30 (22-32) mmol/L BUN 19 H (7-17) mg/dL Creatinine 1.39 H (0.52-1.04) mg/dL Estimated GFR 48 L (>60) mL/min BUN/Creatinine Ratio 13.7 (6-22) Glucose 139 H (70-100) mg/dL Lactate 2.5 H (0.7-2.1) mmol/L Calcium 9.2 (8.4-10.2) mg/dL Magnesium 1.9 (1.6-2.3) mg/dL Total Bilirubin 0.3 (0.2-1.3) mg/dL AST 26 (14-36) IU/L ALT 19 (<35) IU/L Alkaline Phosphatase 93 (38-126) U/L Total Creatine Kinase 138 H (30-135) U/L CK-MB (CK-2) 2.04 (<2.37) ng/mL CK-MB (CK-2) Rel Index 1.5 (1.5-5.0) % Troponin I < 0.012 (0.01-0.034) ng/mL NT-Pro-B Natriuret Pep 44 (<125) pg/mL Total Protein 8.1 (6.3-8.2) g/dL Albumin 4.6 (3.5-5.0) g/dL Globulin 3.5 (1.7-4.1) g/dL Albumin/Globulin Ratio 1.3 (1.0-2.8) Procalcitonin (<0.5) ng/mL SARS-CoV-2 (PCR) (Negative) 01/21/22 Range/Units 01:00 WBC (4.5-11.0) X10^3/uL RBC (4.0-5.2) X10^6/uL Hgb (12.0-16.0) g/dL Hct (36-46) % MCV (80-100) fL MCH (26-34) PG MCHC (30-36) % RDW (11.6-14.8) % Plt Count (150-400) X10^3/uL Neut % (Auto) (50-75) % Lymph % (Auto) (25-40) % [place] % (Auto) (3-14) % Eos % (Auto) (2-4) % Baso % (Auto) (0-2) % Neut # (Auto) (6287-7674) /uL Lymph # (Auto) (0957-8189) /uL [place] # (Auto) (0-900) /uL Eos # (Auto) (0-450) /uL Baso # (Auto) (0-100) /uL D-Dimer (<500) ng/ml Sodium (137-145) mmol/L Potassium (3.4-5.1) mmol/L Chloride (98-107) mmol/L Carbon Dioxide (22-32) mmol/L BUN (7-17) mg/dL Creatinine (0.52-1.04) mg/dL Estimated GFR (>60) mL/min BUN/Creatinine Ratio (6-22) Glucose (70-100) mg/dL Lactate (0.7-2.1) mmol/L Calcium (8.4-10.2) mg/dL Magnesium (1.6-2.3) mg/dL Total Bilirubin (0.2-1.3) mg/dL AST (14-36) IU/L ALT (<35) IU/L Alkaline Phosphatase (38-126) U/L Total Creatine Kinase (30-135) U/L CK-MB (CK-2) (<2.37) ng/mL CK-MB (CK-2) Rel Index (1.5-5.0) % Troponin I (0.01-0.034) ng/mL NT-Pro-B Natriuret Pep (<125) pg/mL Total Protein (6.3-8.2) g/dL Albumin (3.5-5.0) g/dL Globulin (1.7-4.1) g/dL Albumin/Globulin Ratio (1.0-2.8) Procalcitonin (<0.5) ng/mL SARS-CoV-2 (PCR) Negative (Negative) ECG Data Interpretation: [0053] EKG is sinus tachycardia with rate of 112 and free of any signs of ischemia or ectopy. No ST segmental elevation or depression. No T wave inversions MDM Narrative Medical decision making narrative: Patient with minimal improvement after typical pulmonary toilet, though she does meet sepsis criteria Discharge Plan Departure Patient Disposition: Admitted As Inpatient Clinical Impression: Right middle lobe pneumonia, Asthma exacerbation, Acute hypoxemic respiratory failure, Acute hypokalemia, Sepsis
--- NOTE | 2022-01-21 00:47 | DI.RAD.S_ITS ---
PROCEDURE: XR CHEST 2V INDICATIONS: SOB, cough TECHNIQUE: 2 views of the chest were acquired. COMPARISON: [facility], CR, XR CHEST 1V, 07/19/2020, 22:08. FINDINGS: Surgical changes and devices: None. Lungs and pleura: There are slightly increased linear opacities within the medial right lung base consistent with atelectasis or developing consolidation. There is hyperinflation of the lungs with flattening of the hemidiaphragms compatible with COPD. No pleural effusions or pneumothorax. Mediastinum: Mediastinal contours are unchanged. Heart size is normal. Bones and chest wall: No suspicious bony abnormalities. Soft tissues appear unremarkable. IMPRESSION: 1. Increased medial right basilar linear opacities consistent with atelectasis or developing consolidation. Dictated by: Amish Deutsch M.D. on 01/21/2022 at 1:37 Approved by: Amish Deutsch M.D. on 01/21/2022 at 1:38
[2022-01-21] MEDS: DEXAMETHASONE 10 MG/ML VIAL IV (00:54)
[2022-01-21] MEDS: SODIUM CHLORIDE 0.9% 1,000 ML 1000 ML IV (00:55)
[2022-01-21] MEDS: ALBUTEROL 2.5 MG/3 ML NEB (ADULT) INH (01:07)
[2022-01-21] MEDS: ALBUTEROL/IPRATROPIUM 3 ML AMPUL INH ×8 (01:07→21:59)
[2022-01-21 01:15] LABS: Add Manual Diff / Slide Review NO; Basophils Absolute Auto 0 /uL (0-100); Basophils Percent Auto 0.5 % (0-2); Eosinophils Absolute Auto 300 /uL (0-450); Eosinophils Percent Auto 3.3 % (2-4); Hematocrit 38.8 % (36-46); Lymphocytes Absolute Auto 900 /uL (1100-4500); Lymphocytes Percent Auto 9.5 % (25-40); Mean Corpuscular HGB Conc 33.4 % (30-36); Mean Corpuscular Hemoglobin 29.4 PG (26-34); Mean Corpuscular Volume 88.1 fL (80-100); Monocytes Absolute Auto 800 /uL (0-900); Neutrophils Absolute Auto 7600 /uL (1500-7000); Neutrophils Percent Auto 78.7 % (50-75); Platelet Count 253 X10^3/uL (150-400); Red Blood Cell Count 4.41 X10^6/uL (4.0-5.2); Red Cell Distribution Width 16.1 % (11.6-14.8); White Blood Cell Count 9.6 X10^3/uL (4.5-11.0)
[2022-01-21 01:18] LABS: D Dimer 432 ng/ml (<500)
[2022-01-21 01:22] LABS: COVID19 -Nasal RAPID Negative (Negative); Lactate (Lactic Acid) 2.5 mmol/L (0.7-2.1)
[2022-01-21 01:23] LABS: Alanine Aminotransferase 19 IU/L (<35); Albumin 4.6 g/dL (3.5-5.0); Albumin Globulin Ratio 1.3 (1.0-2.8); Alkaline Phosphatase 93 U/L (38-126); Aspartate Aminotransferase 26 IU/L (14-36); BUN Creatinine Ratio 13.7 (6-22); Bilirubin Total 0.3 mg/dL (0.2-1.3); Blood Urea Nitrogen 19 mg/dL (7-17); Calcium 9.2 mg/dL (8.4-10.2); Carbon Dioxide 30 mmol/L (22-32); Chloride 97 mmol/L (98-107); Creatine Kinase 138 U/L (30-135); Estimated Glomerular Filt Rate 48 mL/min (>60); Globulin 3.5 g/dL (1.7-4.1); Glucose 139 mg/dL (70-100); HEMOLYSIS < 15 (0-50); Magnesium 1.9 mg/dL (1.6-2.3); Potassium 2.9 mmol/L (3.4-5.1); Sodium 140 mmol/L (137-145); Total Protein 8.1 g/dL (6.3-8.2)
[2022-01-21 01:34] LABS: Troponin I < 0.012 ng/mL (0.01-0.034)
[2022-01-21 01:35] LABS: NT-proBNP (BNP-Adult 18+) 44 pg/mL (<125)
[2022-01-21 01:38] LABS: CKMB % Relative Index 1.5 % (1.5-5.0); Creatine Kinase MB 2.04 ng/mL (<2.37)
[2022-01-21] MEDS: MAGNESIUM SULFATE 2 GM/50 ML PIGGYBACK IV (01:40)
[2022-01-21] MEDS: SODIUM CHLORIDE 0.9% 1,365 ML 455 ML IV (01:41)
[2022-01-21] MEDS: ALBUTEROL 2.5 MG/3 ML NEB (ADULT) 20 MG INH (01:46)
[2022-01-21] MEDS: cefTRIAXone 2,000 MG in SODIUM CHLORIDE 0.9% 100 ML 200 MG IV (01:51)
--- NOTE | 2022-01-21 02:37 | P.HP_ITS ---
History of Present Illness History of Present Illness Date Patient Seen: 01/21/22 Date of Onset of Symptoms: 01/20/22 Chief complaint: possible pnemonia Narrative: 41-year-old female nonsmoker with history of asthma presents with a day or 2 of runny nose, nasal congestion cough and trouble breathing.? She denies any nausea, vomiting or diarrhea.? She has no recent travel or history of blood clot.? She denies any fever or chills.? She states that minimal exertion makes her significantly more short of breath.? She denies any recent change in her meds and states that she took multiple albuterol nebulizers tonight with minimal to no relief.? She states it has been at least a year since she had been on any steroids. In the ER patient improved with continuous nebulizer therapy but still has significant wheeze audible, continues to be in distress hence called for admission. When I saw the patient, patient continues to have intermittent cough, breathing difficulties, using accessory muscles when she is speaking. Patient says that her family members have been sick with viral illness and probably the reason for her to have this episode. Patient does have productive cough but clear sputum. Does have chest pain in the right side and back specifically associated with cough. Patient History Medical History Abrasion, corneal Acute pain of right knee Asthma Bilateral chronic knee pain Depression Diverticular disease (~2015) Essential hypertension Fibromyalgia (~05/2017) Gestational diabetes mellitus (GDM) (10/27/14) History of colon polyps History of PCR DNA positive for HSV1 (~2014) Hypothyroidism (~2008) Insomnia disorder, with non-sleep disorder mental comorbidity Irritable bowel syndrome Lymphedema of arm Major depressive disorder Migraines Morbid obesity with body mass index (BMI) of 40.0 to 44.9 in adult (11/08/10) Obstructive sleep apnea on CPAP Paget's disease of bone Rheumatoid arthritis UTI (urinary tract infection) Surgical History Status post delivery (12/30/14) Status post laparoscopic supracervical hysterectomy (10/23/15) Status post laparoscopy (01/19/16) Status post surgery (07/07/12) Status post tubal ligation (12/30/14) Family & Social History Family History Grandmother Stroke Grandfather Heart disease Cancer Father Hypertension Mother Hypothyroidism (acquired) Social History: household members spouse,children Safety & Behavioral: Feels Safe in Current Yes Environment Tobacco & Substance use: Tobacco type cigarettes Smoking Status Current some day smoker alcohol intake current alcohol intake frequency a few times a week Substance Use Type marijuana Comment: Patient is , lives with her . Homemaker. Meds Home Medications and Allergies Home Medications Medication Instructions Recorded Confirmed Type tizanidine 4 mg tablet 4 mg PO TIDP PRN muscle spasticity 04/22/16 01/21/22 Rx #270 tabs albuterol sulfate 2.5 mg/3 mL 2.5 mg (3 mL) inhalation Q4-6H PRN 11/01/20 01/21/22 Rx (0.083 %) solution for nebulization bronchospasm #90 mL amitriptyline 75 mg tablet 150 mg PO BEDTIME #180 tabs 03/28/21 01/21/22 Rx levothyroxine 112 mcg tablet 112 mcg PO DAILY #90 tabs 03/28/21 01/21/22 Rx quetiapine 25 mg tablet 75 mg PO .qhs #90 tabs 06/26/21 01/21/22 Rx metoprolol tartrate 25 mg tablet 25 mg PO BID #180 tabs 07/25/21 01/21/22 Rx duloxetine 60 mg capsule,delayed See Rx Instructions .Route 10/22/21 01/21/22 Rx release .COMPLEX #90 caps albuterol sulfate 90 mcg/actuation 2 puff inhalation Q4HP PRN 11/09/21 01/21/22 Rx aerosol inhaler (Ventolin HFA) shortness of breath or wheezing #1 ea oxycodone-acetaminophen 10 mg-325 See Rx Instructions .Route 01/10/22 01/21/22 Rx mg tablet .COMPLEX #120 tabs pregabalin 200 mg capsule See Rx Instructions .Route 01/10/22 01/21/22 Rx .COMPLEX #270 caps bupropion HCl 150 mg 24 hr tablet, See Rx Instructions .Route 01/14/22 01/21/22 Rx extended release .COMPLEX #90 tabs Allergies Allergy/AdvReac Type Severity Reaction Status Date / Time Penicillins [PENICILLINS] Allergy Unknown Verified 08/08/21 13:38 fluconazole [From DIFLUCAN] AdvReac Intermediate vomiting Verified 08/08/21 13:38 and abd pain codeine [CODEINE] AdvReac Mild NAUSEA Verified 08/08/21 13:38 Review of Systems Review of Systems Narrative: All other systems reviewed, negative other than as mentioned above in HPI Exam Vital Signs (past 8 hours): - 01/21/22 00:48 01/21/22 01:07 01/21/22 01:46 Temperature 98.5 F Pulse Rate 116 H 116 H 116 H Respiratory Rate Blood Pressure 170/84 H Pulse Oximetry 92 92 Oxygen Delivery Method Room Air Nasal Cannula Oxygen Flow Rate 2 01/21/22 00:56 01/21/22 01:00 01/21/22 01:33 Temperature Pulse Rate 112 H 112 H 122 H Respiratory Rate Blood Pressure Pulse Oximetry 94 92 93 Oxygen Delivery Method Oxygen Flow Rate 01/21/22 02:23 Temperature Pulse Rate 109 H Respiratory Rate 23 Blood Pressure 130/68 Pulse Oximetry 92 Oxygen Delivery Method Aerosol Mask Oxygen Flow Rate 8 Oxygen Delivery Method Aerosol Mask Oxygen Flow Rate 8 Narrative Exam Narrative: Pleasant female sitting in the bed looks in distress, able to make a reasonable conversation, using accessory muscles, intermittent cough, audible wheeze from distance. On examination bilateral diffuse wheeze noted. Overall air entry is poor. Patient using accessory muscles. Tachycardia noted. Obese. Constitutional, HEENT, eyes, cardiovascular, pulmonary, GI, skin, neuro, psych examination done, negative other than as mentioned above. Objective Labs Result Diagrams: 01/21/22 01:00 01/21/22 01:00 Labs: Laboratory Results - last 24 hr 01/21/22 01/21/22 01/21/22 01:00 01:00 01:00 WBC 9.6 RBC 4.41 Hgb 13.0 Hct 38.8 MCV 88.1 MCH 29.4 MCHC 33.4 RDW 16.1 H Plt Count 253 Neut % (Auto) 78.7 H Lymph % (Auto) 9.5 L [place] % (Auto) 8.0 Eos % (Auto) 3.3 Baso % (Auto) 0.5 Neut # (Auto) 7600 H Lymph # (Auto) 900 L [place] # (Auto) 800 Eos # (Auto) 300 Baso # (Auto) 0 D-Dimer 432 Sodium Potassium Chloride Carbon Dioxide BUN Creatinine Estimated GFR BUN/Creatinine Ratio Glucose Lactate Calcium Magnesium Total Bilirubin AST ALT Alkaline Phosphatase Total Creatine Kinase CK-MB (CK-2) CK-MB (CK-2) Rel Index Troponin I NT-Pro-B Natriuret Pep Total Protein Albumin Globulin Albumin/Globulin Ratio Procalcitonin 0.10 SARS-CoV-2 (PCR) 01/21/22 01/21/22 01/21/22 01:00 01:00 01:00 WBC RBC Hgb Hct MCV MCH MCHC RDW Plt Count Neut % (Auto) Lymph % (Auto) [place] % (Auto) Eos % (Auto) Baso % (Auto) Neut # (Auto) Lymph # (Auto) [place] # (Auto) Eos # (Auto) Baso # (Auto) D-Dimer Sodium 140 Potassium 2.9 L Chloride 97 L Carbon Dioxide 30 BUN 19 H Creatinine 1.39 H Estimated GFR 48 L BUN/Creatinine Ratio 13.7 Glucose 139 H Lactate 2.5 H Calcium 9.2 Magnesium 1.9 Total Bilirubin 0.3 AST 26 ALT 19 Alkaline Phosphatase 93 Total Creatine Kinase 138 H CK-MB (CK-2) 2.04 CK-MB (CK-2) Rel Index 1.5 Troponin I < 0.012 NT-Pro-B Natriuret Pep 44 Total Protein 8.1 Albumin 4.6 Globulin 3.5 Albumin/Globulin Ratio 1.3 Procalcitonin SARS-CoV-2 (PCR) 01/21/22 01:00 WBC RBC Hgb Hct MCV MCH MCHC RDW Plt Count Neut % (Auto) Lymph % (Auto) [place] % (Auto) Eos % (Auto) Baso % (Auto) Neut # (Auto) Lymph # (Auto) [place] # (Auto) Eos # (Auto) Baso # (Auto) D-Dimer Sodium Potassium Chloride Carbon Dioxide BUN Creatinine Estimated GFR BUN/Creatinine Ratio Glucose Lactate Calcium Magnesium Total Bilirubin AST ALT Alkaline Phosphatase Total Creatine Kinase CK-MB (CK-2) CK-MB (CK-2) Rel Index Troponin I NT-Pro-B Natriuret Pep Total Protein Albumin Globulin Albumin/Globulin Ratio Procalcitonin SARS-CoV-2 (PCR) Negative Assessment & Plan Assessment and plan (1) Right middle lobe pneumonia: Status: Acute (2) Asthma exacerbation: Status: Acute (3) Acute hypoxemic respiratory failure: Status: Acute (4) Acute hypokalemia: Status: Acute (5) Sepsis: Status: Acute Assessment & Plan narrative: Patient admitted for ongoing nebulization therapy, IV steroids, close monitoring of her breathing status IV fluids, Azithromycin and Rocephin for her pneumonia and sepsis -present at the time of admission Transition antibiotics to p.o.as patient continues to improve Expected length of stay 2 days given patient significant respiratory distress Hypokalemia most likely secondary to multiple albuterol therapy, monitor, replace as needed DVT and GI prophylaxis reviewed Patient is full code I offered to talk to family members but patient requested not to call them in t he middle of the night, was updated by ER physician Care plan discussed with the patient and answered all questions Time Spent With Patient Critical Care time: I spent a total of [] minutes of critical care time on this patient's care today; this time is exclusive of procedural time.
[2022-01-21] MEDS: POTASSIUM CHLORIDE 20 MEQ/15 ML UDC 40 MEQ PO (02:59)
[2022-01-21] MEDS: AZITHROMYCIN 500 MG in DEXTROSE 5% IN WATER 250 ML 250 MG IV (03:00)
[2022-01-21 03:06] LABS: Reflexed Lactate in 2 Hours Y
[2022-01-21 03:13] LABS: HCO3 ABG 29 mmol/L (22-26); Oxygen Saturation ABG 92 % (95-100); PCO2 ABG 50.8 mmHg (35-45); PO2 ABG 67 mmHg (80-100); TCO2 ABG 31 mmol/L (21-31)
[2022-01-21 03:14] LABS: Fractionated Inspired Oxygen 52
[2022-01-21 03:18] LABS: pH ABG 7.37 (7.35-7.45)
[2022-01-21] MEDS: KCL 20 MEQ IN NS 1,000 ML 100 MEQ IV (04:19)
[2022-01-21] MEDS: QUETIAPINE 25 MG TABLET 75 MG PO ×2 (04:25→21:54)
[2022-01-21 05:52] LABS: Adenovirus Not Detected (Not Detect); B. parapertussis Not Detected (Not Detecte); Bordetella pertussis Not Detected (Not Detecte); Chlamydophila pneumoniae Not Detected (Not Detect); Coronavirus 229E Not Detected (Not Detect); Coronavirus HKU1 Not Detected (Not Detect); Coronavirus NL 63 Not Detected (Not Detect); Coronavirus OC43 Not Detected (Not Detect); Human Metapneumovirus Not Detected (Not Detect); Human Rhinovirus/Enterovirus Detected (Not Detect); Influenza A Not Detected (Not Detect); Influenza B Not Detected (Not Detect); Mycoplasma pneumoniae Not Detected (Not Detect); Parainfluenza Virus 1 Not Detected (Not Detect); Parainfluenza Virus 2 Not Detected (Not Detect); Parainfluenza Virus 3 Not Detected (Not Detect); Parainfluenza Virus 4 Not Detected (Not Detect); Respiratory Syncytial Virus Not Detected (Not Detect); SARS- CoV-2 Not Detected (Not Detecte)
[2022-01-21] MEDS: OXYCODONE IR 5 MG TABLET 10 MG PO ×4 (06:44→21:54)
[2022-01-21 08:24] LABS: Add Manual Diff / Slide Review NO; Basophils Absolute Auto 0 /uL (0-100); Basophils Percent Auto 0.1 % (0-2); Eosinophils Absolute Auto 0 /uL (0-450); Eosinophils Percent Auto 0.2 % (2-4); Hematocrit 38.9 % (36-46); Hemoglobin 13.1 g/dL (12.0-16.0); Lymphocytes Absolute Auto 300 /uL (1100-4500); Lymphocytes Percent Auto 2.7 % (25-40); Mean Corpuscular HGB Conc 33.6 % (30-36); Mean Corpuscular Hemoglobin 29.6 PG (26-34); Mean Corpuscular Volume 88.2 fL (80-100); Monocytes Absolute Auto 100 /uL (0-900); Monocytes Percent Auto 1.4 % (3-14); Neutrophils Absolute Auto 8800 /uL (1500-7000); Neutrophils Percent Auto 95.6 % (50-75); Platelet Count 224 X10^3/uL (150-400); Red Blood Cell Count 4.41 X10^6/uL (4.0-5.2); White Blood Cell Count 9.2 X10^3/uL (4.5-11.0)
[2022-01-21 08:34] LABS: Lactate 2HR (Lactic Acid Rflx) 3.1 mmol/L (0.7-2.1)
[2022-01-21 08:35] LABS: Alanine Aminotransferase 28 IU/L (<35); Albumin 4.3 g/dL (3.5-5.0); Albumin Globulin Ratio 1.1 (1.0-2.8); Alkaline Phosphatase 105 U/L (38-126); Aspartate Aminotransferase 41 IU/L (14-36); BUN Creatinine Ratio 13.6 (6-22); Bilirubin Total 0.2 mg/dL (0.2-1.3); Blood Urea Nitrogen 12 mg/dL (7-17); Calcium 8.6 mg/dL (8.4-10.2); Carbon Dioxide 26 mmol/L (22-32); Chloride 103 mmol/L (98-107); Estimated Glomerular Filt Rate > 60 mL/min (>60); Globulin 3.8 g/dL (1.7-4.1); Glucose 206 mg/dL (70-100); HEMOLYSIS < 15 (0-50); Potassium 3.9 mmol/L (3.4-5.1); Sodium 141 mmol/L (137-145); Total Protein 8.1 g/dL (6.3-8.2)
[2022-01-21] MEDS: POTASSIUM CHLORIDE 20 MEQ/15 ML UDC PO ×2 (09:12→18:36)
[2022-01-21] MEDS: SODIUM CHLORIDE 0.9% FLUSH 10 ML IV ×2 (09:13→21:54)
[2022-01-21] MEDS: LEVOTHYROXINE 112 MCG TABLET PO (09:13)
--- NOTE | 2022-01-21 10:34 | CM.DANOTE ---
DCP Assessment: Payor: [facility] & Medicaid PCP: Eduard Arreguin MD Pt is a 41 y.o. F who presented to the ER with runny nose, nasal congestion, and trouble breathing. Pt has a history of asthma. Pt admitted to the floor for ongoing nebulization treatment, IV steroids, and close monitoring. DCP unable to enter room due to isolation precautions. DCP contacted pt on telephone. DCP introduced self and role. Pt lives in a house in [place] with her spouse and family. Pt independent at baseline. No DME use. Drives POV. Pt states that spouse will pick her up from the hospital once discharged. No discharge needs at this time. DCP to continue to follow. Pt thankful for the call. P: Pt to continue treatments. Once medically stable, pt to discharge home via spouse POV. Shannon Mcgrath RN/ADITI Discharge Planning/Care Management CM Discharge Assessment Start: 01/21/22 08:46 Freq: Status: Active Protocol: Document 01/21/22 10:33 KAREN (Rec: 01/21/22 10:34 KAREN [id number]) Discharge Planning Assessment Assigned Materials Mgmt Tech Shannon Mcgrath RN/ADITI Advance Directives? No Advance Directives on File No History Provided By Patient,Medical Record Prior Living Arrangements House Household Members spouse,children Type of transporation used prior to Drives own vehicle admit Independent with ADL's Yes Is patient alert and oriented? Yes Discharge Plan Home Transportation Arrangement Spouse Referrals Initiated None needed Whiteboard Updated in Patient Room with No name and ext. # of Materials Mgmt Tech Comment Unable to enter room due to isolation precautions. Verbalized to pt over the phone. Review Status In Process Please Provide Date Initial DC 01/21/22 Assessment Was Performed Next Review Type Continued Stay Review
[2022-01-22] VITALS (8 sets, daily range): BP systolic 147–163; BP diastolic 79–95; PULSE 78–96; RESP 15–18; TEMP 35.1–36.2; O2SAT 91–100
[2022-01-22] MEDS: SODIUM CHLORIDE 0.9% FLUSH 10 ML IV ×7 (00:06→23:46)
[2022-01-22] MEDS: OXYCODONE IR 5 MG TABLET 10 MG PO ×4 (04:30→21:02)
[2022-01-22 05:43] LABS: Hematocrit 39.4 % (36-46); Hemoglobin 12.9 g/dL (12.0-16.0); Mean Corpuscular HGB Conc 32.8 % (30-36); Mean Corpuscular Volume 88.6 fL (80-100); Platelet Count 250 X10^3/uL (150-400); Red Blood Cell Count 4.45 X10^6/uL (4.0-5.2); Red Cell Distribution Width 16.4 % (11.6-14.8)
[2022-01-22 05:52] LABS: White Blood Cell Count 20.5 X10^3/uL (4.5-11.0)
[2022-01-22 05:55] LABS: Blood Urea Nitrogen 15 mg/dL (7-17); Carbon Dioxide 29 mmol/L (22-32); Chloride 105 mmol/L (98-107); Estimated Glomerular Filt Rate > 60 mL/min (>60); Glucose 156 mg/dL (70-100); HEMOLYSIS < 15 (0-50); Sodium 139 mmol/L (137-145)
[2022-01-22 05:57] LABS: Potassium 5.3 mmol/L (3.4-5.1)
[2022-01-22] MEDS: ALBUTEROL/IPRATROPIUM 3 ML AMPUL INH ×3 (08:07→20:01)
[2022-01-22] MEDS: LEVOTHYROXINE 112 MCG TABLET PO (08:47)
--- NOTE | 2022-01-22 09:22 | P.PN_ITS ---
Subjective Subjective Date Patient Seen: 01/22/22 Time Patient Seen: 08:00 Interval history: Her shortness of breath is improving, but she remains still short of breath. She is coughing more. Her oxygen has been decreased to 7L O2 Exam Vital Signs (past 8 hours): - 01/22/22 04:00 01/22/22 08:07 01/22/22 08:42 Temperature 97.0 F L 97.2 F L Pulse Rate 84 80 78 Respiratory Rate 15 18 18 Blood Pressure 152/90 H 156/89 H Pulse Oximetry 97 93 91 Oxygen Delivery Method Heated High Flow Oxygen Flow Rate 10 7 7 Fraction of Inspired Oxygen 60 SaO2/FiO2 Ratio 155 Oxygen Delivery Method Heated High Flow Oxygen Flow Rate 7 Narrative Exam Narrative: GEN: mild respiratory distress CV: regular rate and rhythm PULM: coarse breath sounds, wheezes ABD: soft, nontender, nondistended, no organomegaly Objective Labs Result Diagrams: 01/22/22 05:17 01/22/22 05:17 Labs: Laboratory Results - last 24 hr 01/22/22 01/22/22 05:17 05:17 WBC 20.5 H D RBC 4.45 Hgb 12.9 Hct 39.4 MCV 88.6 MCH 29.0 MCHC 32.8 RDW 16.4 H Plt Count 250 Sodium 139 Potassium 5.3 H D Chloride 105 Carbon Dioxide 29 BUN 15 Creatinine 0.60 Estimated GFR > 60 BUN/Creatinine Ratio 25.0 H Glucose 156 H Calcium 9.0 PFSH Medical History Abrasion, corneal Acute pain of right knee Asthma Bilateral chronic knee pain Depression Diverticular disease (~2015) Essential hypertension Fibromyalgia (~05/2017) Gestational diabetes mellitus (GDM) (10/27/14) History of colon polyps History of PCR DNA positive for HSV1 (~2014) Hypothyroidism (~2008) Insomnia disorder, with non-sleep disorder mental comorbidity Irritable bowel syndrome Lymphedema of arm Major depressive disorder Migraines Morbid obesity with body mass index (BMI) of 40.0 to 44.9 in adult (11/08/10) Obstructive sleep apnea on CPAP Paget's disease of bone Rheumatoid arthritis UTI (urinary tract infection) Surgical History Status post delivery (12/30/14) Status post laparoscopic supracervical hysterectomy (10/23/15) Status post laparoscopy (01/19/16) Status post surgery (07/07/12) Status post tubal ligation (12/30/14) Family History Grandmother Stroke Grandfather Heart disease Cancer Father Hypertension Mother Hypothyroidism (acquired) Social History household members: spouse and children Smoking Status: Former smoker alcohol intake: current Assessment & Plan Assessment & Plan narrative: 1. Acute hypoxemic respiratory failure secondary to viral pneumonia and severe asthma exacerbation -patient was on 15L O2 yesterday with sats in the low 90s -today improving to 7L o2 -continue scheduled and prn nebs, azithromycin, steroids -did receive magnesium in the ED -did have sepsis from pneumonia on arrival with tachycardia, tachypnea, deng kocytosis and respiratory failure 2. Hypothyroid -continue synthroid Time Spent With Patient Critical Care time: I spent a total of [] minutes of critical care time on this patient's care today; this time is exclusive of procedural time. Quality VTE Deep Vein Thrombosis/Pulmonary Embolism Present on Admission: No
[2022-01-22] MEDS: cefTRIAXone 1,000 MG in SODIUM CHLORIDE 0.9% 100 ML 200 MG IV (17:14)
--- NOTE | 2022-01-22 20:43 | PC.NURSE ---
Patient is alert and oriented. Breath sounds w/diminished inspirations and coarse expiratory rhonchi. States she feels SOB both at rest and with exertion. Has occasional non productive cough. Currently on oxygen at 7L/min per HFNC with sat of 95%; being monitored on continuous oximetry. HRR; has elevated BP of 156/79 and noted not to be receiving home med Metoprolol so contacted ISRRAEL Lee, who reordered it. Denies nausea. BT present and is passing flatus. Denies dysuria, frequency or urgency with urination. Is able to turn herself in bed and is up to BSC independently. Refusing SCD's so reminded to ankle wave. Has puffy ankles. Fall risk score is moderate but patient is steady on feet so is bed alarm not currently activated. On droplet precautions for rhinovirus.
[2022-01-22] MEDS: DULOXETINE 30 MG CAPSULE 60 MG PO (21:01)
[2022-01-22] MEDS: METOPROLOL IR 25 MG TABLET PO (21:01)
[2022-01-22] MEDS: AMITRIPTYLINE 25 MG TABLET 150 MG PO (21:01)
[2022-01-22] MEDS: buPROPion XL 150 MG TAB PO (21:01)
[2022-01-22] MEDS: QUETIAPINE 25 MG TABLET 75 MG PO (21:02)
[2022-01-22] MEDS: PREGABALIN 50 MG CAPSULE 200 MG PO (21:02)
[2022-01-23] VITALS (15 sets, daily range): BP systolic 141–176; BP diastolic 76–106; PULSE 77–95; RESP 16–20; TEMP 36.3–37; O2SAT 92–99
[2022-01-23] MEDS: ALBUTEROL 2.5 MG/3 ML NEB (ADULT) INH ×2 (00:06→08:24)
[2022-01-23] MEDS: ALBUTEROL/IPRATROPIUM 3 ML AMPUL INH ×5 (00:06→19:11)
[2022-01-23] MEDS: SODIUM CHLORIDE 0.9% FLUSH 10 ML IV ×2 (05:34→08:51)
[2022-01-23 06:22] LABS: Hematocrit 39.7 % (36-46); Mean Corpuscular HGB Conc 32.9 % (30-36); Mean Corpuscular Hemoglobin 28.8 PG (26-34); Mean Corpuscular Volume 87.7 fL (80-100); Platelet Count 299 X10^3/uL (150-400); Red Blood Cell Count 4.53 X10^6/uL (4.0-5.2); Red Cell Distribution Width 16.2 % (11.6-14.8); White Blood Cell Count 24.2 X10^3/uL (4.5-11.0)
[2022-01-23 06:25] LABS: BUN Creatinine Ratio 30.9 (6-22); Blood Urea Nitrogen 21 mg/dL (7-17); Calcium 9.6 mg/dL (8.4-10.2); Carbon Dioxide 28 mmol/L (22-32); Chloride 102 mmol/L (98-107); Estimated Glomerular Filt Rate > 60 mL/min (>60); Glucose 123 mg/dL (70-100); HEMOLYSIS < 15 (0-50); Sodium 137 mmol/L (137-145)
[2022-01-23 06:45] LABS: Potassium 5.4 mmol/L (3.4-5.1)
[2022-01-23] MEDS: METOPROLOL IR 25 MG TABLET PO ×2 (08:50→21:28)
[2022-01-23] MEDS: LEVOTHYROXINE 112 MCG TABLET PO (08:50)
[2022-01-23] MEDS: PREGABALIN 50 MG CAPSULE 200 MG PO ×3 (08:50→21:34)
[2022-01-23] MEDS: OXYCODONE IR 5 MG TABLET 10 MG PO ×4 (08:50→21:33)
[2022-01-23] MEDS: AZITHROMYCIN 250 MG TABLET 500 MG PO (13:50)
--- NOTE | 2022-01-23 14:00 | PM.PN.1 ---
Subjective Subjective Interval history: Feeling somewhat better but coughing more. Able to eat some food. Exam Vital Signs (past 8 hours): - 01/23/22 08:29 01/23/22 08:45 01/23/22 10:44 Temperature 97.8 F Pulse Rate 92 H Respiratory Rate 20 Blood Pressure 174/102 H 174/106 H Pulse Oximetry 93 99 Oxygen Delivery Method Nasal Cannula Oxygen Flow Rate 4 7 01/23/22 11:34 01/23/22 13:37 Temperature Pulse Rate 77 Respiratory Rate 18 Blood Pressure Pulse Oximetry 94 92 Oxygen Delivery Method High Flow Nasal Cannula Oxygen Flow Rate 3 3 Fraction of Inspired Oxygen 60 SaO2/FiO2 Ratio 155 Oxygen Delivery Method High Flow Nasal Cannula Oxygen Flow Rate 3 Narrative Exam Narrative: GEN: mild respiratory distress. CV: regular rate and rhythm, S1-S2 with no extra sounds. PULM: coarse breath sounds, wheezes both inspiratory and expiratory. ABD: soft, nontender, nondistended, no organomegaly, bowel sounds normal. Objective Labs Result Diagrams: 01/23/22 04:41 01/23/22 04:41 Labs: Laboratory Results - last 24 hr 01/21/22 01/23/22 01/23/22 02:18 04:41 04:41 WBC 24.2 H RBC 4.53 Hgb 13.0 Hct 39.7 MCV 87.7 MCH 28.8 MCHC 32.9 RDW 16.2 H Plt Count 299 ABG pH 7.37 Sodium 137 Potassium 5.4 H Chloride 102 Carbon Dioxide 28 BUN 21 H Creatinine 0.68 Estimated GFR > 60 BUN/Creatinine Ratio 30.9 H Glucose 123 H Calcium 9.6 PFSH Medical History Abrasion, corneal Acute pain of right knee Asthma Bilateral chronic knee pain Depression Diverticular disease (~2015) Essential hypertension Fibromyalgia (~05/2017) Gestational diabetes mellitus (GDM) (10/27/14) History of colon polyps History of PCR DNA positive for HSV1 (~2014) Hypothyroidism (~2008) Insomnia disorder, with non-sleep disorder mental comorbidity Irritable bowel syndrome Lymphedema of arm Major depressive disorder Migraines Morbid obesity with body mass index (BMI) of 40.0 to 44.9 in adult (11/08/10) Obstructive sleep apnea on CPAP Paget's disease of bone Rheumatoid arthritis UTI (urinary tract infection) Surgical History Status post delivery (12/30/14) Status post laparoscopic supracervical hysterectomy (10/23/15) Status post laparoscopy (01/19/16) Status post surgery (07/07/12) Status post tubal ligation (12/30/14) Family History Grandmother Stroke Grandfather Heart disease Cancer Father Hypertension Mother Hypothyroidism (acquired) Social History household members: spouse and children Smoking Status: Former smoker alcohol intake: current Assessment & Plan Assessment & Plan narrative: 1. Acute hypoxemic respiratory failure secondary to viral pneumonia and severe asthma exacerbation, covering with antibiotics for potential secondary infection O2 needs have decreased to 3 liters/minute. IV medication needed to be discontinue. Now on oral steroids. On oral antibiotics. Concurrently cephalexin and azithromycin 2. Hypothyroid Continue synthroid 3. Hypertension. Not well controlled. Add lisinopril 5 mg daily 4. Significant past medical history. See past medical history section. Follow labs and clinically. Patient is full code DVT prophylaxis not needed due to age and risk factors Time Spent With Patient Critical Care time: I spent a total of [] minutes of critical care time on this patient's care today; this time is exclusive of procedural time. Quality VTE Deep Vein Thrombosis/Pulmonary Embolism Present on Admission: No
[2022-01-23] MEDS: lisinopriL 5 MG TABLET PO (15:11)
[2022-01-23] MEDS: predniSONE 20 MG TABLET 60 MG PO (15:11)
[2022-01-23] MEDS: guaiFENesin ER 600 MG TAB PO ×2 (16:48→21:27)
[2022-01-23] MEDS: cephALEXin 250 MG CAPSULE 500 MG PO ×2 (16:49→21:27)
[2022-01-23] MEDS: buPROPion XL 150 MG TAB PO (21:26)
[2022-01-23] MEDS: DULOXETINE 30 MG CAPSULE 60 MG PO (21:27)
[2022-01-23] MEDS: QUETIAPINE 25 MG TABLET 75 MG PO (21:28)
[2022-01-23] MEDS: AMITRIPTYLINE 25 MG TABLET 150 MG PO (21:49)
[2022-01-24] VITALS (8 sets, daily range): BP systolic 155–174; BP diastolic 82–110; PULSE 76–89; RESP 17–22; TEMP 35.7–37.2; O2SAT 91–99
--- NOTE | 2022-01-24 01:18 | PC.NURSE ---
Patient is alert and oriented. Breath sounds with inspiratory and expiratory rhonchi but has increased air movement tonight. Still with non-productive cough but states better since started on Mucinex. Is currently on oxygen at 2.5L/min per HFNC with sat of 93%; remains on continuous oximetry HRR. BP elevated at 141/76 and then at 0000 had BP of 156/110 on right arm and 165/92 on left arm; started on Lisinopril today in addition to Metoprolol. BT present and reports having had BM 01/22. Voiding; denies dysuria. Independent with mobility. Complains of 6/10 chest pain/pressure related to coughing; medicated with oxycodone and is currently asleep. Refuses SCD's so reminded to ankle wave. On droplet precautions due to being + for rhinovirus. Fall risk score is moderate.
[2022-01-24 05:50] LABS: Add Manual Diff / Slide Review NO; Basophils Absolute Auto 0 /uL (0-100); Basophils Percent Auto 0.1 % (0-2); Eosinophils Absolute Auto 0 /uL (0-450); Hemoglobin 12.7 g/dL (12.0-16.0); Lymphocytes Absolute Auto 1200 /uL (1100-4500); Lymphocytes Percent Auto 8.4 % (25-40); Mean Corpuscular HGB Conc 33.4 % (30-36); Mean Corpuscular Hemoglobin 29.2 PG (26-34); Mean Corpuscular Volume 87.6 fL (80-100); Monocytes Absolute Auto 700 /uL (0-900); Monocytes Percent Auto 5.3 % (3-14); Neutrophils Absolute Auto 11800 /uL (1500-7000); Neutrophils Percent Auto 86.2 % (50-75); Platelet Count 275 X10^3/uL (150-400); Red Blood Cell Count 4.34 X10^6/uL (4.0-5.2); White Blood Cell Count 13.7 X10^3/uL (4.5-11.0)
[2022-01-24 05:58] LABS: Alanine Aminotransferase 17 IU/L (<35); Albumin Globulin Ratio 1.2 (1.0-2.8); Alkaline Phosphatase 82 U/L (38-126); Aspartate Aminotransferase 16 IU/L (14-36); BUN Creatinine Ratio 32.9 (6-22); Bilirubin Total 0.3 mg/dL (0.2-1.3); Blood Urea Nitrogen 24 mg/dL (7-17); Calcium 9.4 mg/dL (8.4-10.2); Carbon Dioxide 32 mmol/L (22-32); Chloride 98 mmol/L (98-107); Estimated Glomerular Filt Rate > 60 mL/min (>60); Globulin 3.4 g/dL (1.7-4.1); Glucose 132 mg/dL (70-100); HEMOLYSIS < 15 (0-50); Potassium 4.4 mmol/L (3.4-5.1); Sodium 137 mmol/L (137-145); Total Protein 7.4 g/dL (6.3-8.2)
[2022-01-24] MEDS: PREGABALIN 50 MG CAPSULE 200 MG PO (08:29)
[2022-01-24] MEDS: lisinopriL 5 MG TABLET PO (08:29)
[2022-01-24] MEDS: cephALEXin 250 MG CAPSULE 500 MG PO ×2 (08:29→12:30)
[2022-01-24] MEDS: AZITHROMYCIN 250 MG TABLET 500 MG PO (08:30)
[2022-01-24] MEDS: OXYCODONE IR 5 MG TABLET 10 MG PO (08:30)
[2022-01-24] MEDS: guaiFENesin ER 600 MG TAB PO (08:30)
[2022-01-24] MEDS: ALBUTEROL/IPRATROPIUM 3 ML AMPUL INH ×2 (08:35→11:44)
[2022-01-24] MEDS: ALBUTEROL 2.5 MG/3 ML NEB (ADULT) INH ×2 (08:35→11:44)
[2022-01-24] MEDS: LEVOTHYROXINE 112 MCG TABLET PO (08:35)
[2022-01-24] MEDS: predniSONE 20 MG TABLET 40 MG PO (08:35)
[2022-01-24] MEDS: METOPROLOL IR 25 MG TABLET PO (08:39)
--- NOTE | 2022-01-24 11:03 | P.DS_ITS ---
History of Present Illness History of Present Illness Chief complaint: possible pnemonia Narrative: Patient feeling much better and eager to go home even if it means being on O2 supplementation for a while. Discharge Providers Provider Date of admission: 01/21/22 02:04 Discharge Date: 01/24/22 Primary care physician: Eduard Arreguin, Discharge provider: Marifer Hameed MD Summary Hospital Course Discharge Diagnosis: Most responsible diagnosis for length of stay: Asthma exacerbation Pre admit diagnosis: Asthma Asthma exacerbation Right lower lobe pneumonia, etiology either viral or bacterial Uncontrolled hypertension Acute hypoxemic respiratory failure requiring O2 supplementation Leukocytosis Hyperkalemia Dehydration Post admit diagnoses: Leukocytosis approaching normal Hyperkalemia resolved Persistent need for O2 supplementation at the time of discharge Secondary diagnoses: History Abrasion, corneal History Acute pain of right knee Bilateral chronic knee pain Depression Diverticular disease (~2015) Essential hypertension Fibromyalgia (~05/2017) Gestational diabetes mellitus (GDM) (10/27/14) History of colon polyps History of PCR DNA positive for HSV1 (~2014) Hypothyroidism (~2008) Insomnia disorder, with non-sleep disorder mental comorbidity Irritable bowel syndrome Lymphedema of arm Major depressive disorder Migraines Morbid obesity with body mass index (BMI) of 40.0 to 44.9 in adult (11/08/10) Obstructive sleep apnea on CPAP Paget's disease of bone Rheumatoid arthritis History UTI (urinary tract infection) Status post delivery (12/30/14) Status post laparoscopic supracervical hysterectomy (10/23/15) Status post laparoscopy (01/19/16) Status post surgery (07/07/12) Status post tubal ligation (12/30/14) Hospital Course: Alina Pal is a 41-year-old female nonsmoker with history of asthma who presented with a day or 2 of runny nose, nasal congestion cough and trouble breathing.? She deniesdany nausea, vomiting or diarrhea.? She had no recent travel or history of blood clot.? She denied any fever or chills.? She stated that minimal exertion makes her significantly more short of breath.? She denied any recent change in her meds and states that she took multiple albuterol nebulizers on the day of presentation with minimal to no relief. There was concern on chest x-ray for possible right lower lobe pneumonia either viral or early bacterial. Patient was treated with ceftriaxone and azithromycin initially intravenously. W\As well nebulizer treatment with DuoNeb and IV Solu- Medrol with subsequent transition to oral prednisone as well as oral antibiotics during the hospital stay. At the time of discharge patient continued to required O2 supplementation and will be discharged home with same. As well due to the significant amount of wheezing both inspiratory and expiratory requiring corticosteroids, the patient will be tapered off corticosteroids after discharge. We her dose will be 40 mg of prednisone for 5 days then 20 mg of prednisone for 5 days and 10 mg of prednisone for 5 days. Of note the patient's blood pressure was not well controlled during the hospital stay and lisinopril 5 mg daily was added to improve control. This should be continued following discharge. Status at Discharge Cognitive/behavioral status at discharge: at baseline, oriented Functional status at discharge: independent ambulation Overall status at discharge: patient is progressing back to baseline Time Spent with Patient Time spent: Greater than 30 minutes Exam Vital Signs (past 8 hours): - 01/24/22 04:00 01/24/22 08:29 01/24/22 08:37 Temperature 96.2 F L Pulse Rate 76 Respiratory Rate 17 Blood Pressure 156/98 H 155/89 H Pulse Oximetry 99 92 Oxygen Delivery Method High Flow Nasal Cannula Oxygen Flow Rate 2.5 2 01/24/22 08:00 Temperature 99.0 F Pulse Rate 84 Respiratory Rate 21 Blood Pressure 155/89 H Pulse Oximetry 94 Oxygen Delivery Method Oxygen Flow Rate 2.5 Fraction of Inspired Oxygen 60 SaO2/FiO2 Ratio 155 Oxygen Delivery Method High Flow Nasal Cannula Oxygen Flow Rate 2 Objective Labs Result Diagrams: 01/24/22 05:12 01/24/22 05:12 Labs: Laboratory Results - last 24 hr 01/24/22 01/24/22 05:12 05:12 WBC 13.7 H RBC 4.34 Hgb 12.7 Hct 38.0 MCV 87.6 MCH 29.2 MCHC 33.4 RDW 16.0 H Plt Count 275 Neut % (Auto) 86.2 H Lymph % (Auto) 8.4 L [place] % (Auto) 5.3 Eos % (Auto) 0.0 L Baso % (Auto) 0.1 Neut # (Auto) 96509 H Lymph # (Auto) 1200 [place] # (Auto) 700 Eos # (Auto) 0 Baso # (Auto) 0 Sodium 137 Potassium 4.4 Chloride 98 Carbon Dioxide 32 BUN 24 H Creatinine 0.73 Estimated GFR > 60 BUN/Creatinine Ratio 32.9 H Glucose 132 H Calcium 9.4 Total Bilirubin 0.3 AST 16 ALT 17 Alkaline Phosphatase 82 Total Protein 7.4 Albumin 4.0 Globulin 3.4 Albumin/Globulin Ratio 1.2 [facility] Medical History Abrasion, corneal Acute pain of right knee Asthma Bilateral chronic knee pain Depression Diverticular disease (~2015) Essential hypertension Fibromyalgia (~05/2017) Gestational diabetes mellitus (GDM) (10/27/14) History of colon polyps History of PCR DNA positive for HSV1 (~2014) Hypothyroidism (~2008) Insomnia disorder, with non-sleep disorder mental comorbidity Irritable bowel syndrome Lymphedema of arm Major depressive disorder Migraines Morbid obesity with body mass index (BMI) of 40.0 to 44.9 in adult (11/08/10) Obstructive sleep apnea on CPAP Paget's disease of bone Rheumatoid arthritis UTI (urinary tract infection) Surgical History Status post delivery (12/30/14) Status post laparoscopic supracervical hysterectomy (10/23/15) Status post laparoscopy (01/19/16) Status post surgery (07/07/12) Status post tubal ligation (12/30/14) Family History Grandmother Stroke Grandfather Heart disease Cancer Father Hypertension Mother Hypothyroidism (acquired) Social History household members: spouse and children Smoking Status: Former smoker alcohol intake: current Discharge Plan Discharge Plan Patient Disposition: Home Discharge orders & Medications Prescriptions: New azithromycin [Zithromax Z-Kenrick] 250 mg Tablet 500 mg PO DAILY Qty: 2 0RF cephalexin 250 mg Capsule 500 mg PO QID Qty: 8 0RF prednisone 20 mg Tablet 40 mg PO DAILY Qty: 10 0RF magnesium hydroxide [Milk of Magnesia] 400 mg/5 mL Suspension 30 ml PO DAILY PRN (Reason: Constipation) Qty: 500 0RF lisinopril 5 mg Tablet 5 mg PO DAILY Qty: 30 0RF guaifenesin [Mucus Relief ER] 600 mg Tablet Extended Release 12hr 600 mg PO BID Qty: 10 0RF prednisone 20 mg tablet 20 mg PO DAILY Qty: 5 0RF prednisone 10 mg tablet 10 mg PO DAILY Qty: 5 0RF prednisone 20 mg tablet 20 mg PO DAILY Qty: 5 0RF prednisone 10 mg tablet 10 mg PO DAILY Qty: 5 0RF Continued albuterol sulfate 2.5 mg /3 mL (0.083 %) solution for nebulization 2.5 mg INHALATION Q4-6H PRN (Reason: bronchospasm) Qty: 90 3RF amitriptyline 75 mg tablet 150 mg PO BEDTIME Qty: 180 1RF levothyroxine 112 mcg tablet 112 mcg PO DAILY Qty: 90 1RF Label Comments: pt reports taking med at bedtime quetiapine 25 mg tablet 75 mg PO .qhs Qty: 90 5RF duloxetine 60 mg capsule,delayed release(DR/EC) See Rx Instructions .ROUTE .COMPLEX Qty: 90 3RF Dose Instruction: TAKE 1 CAPSULE BY MOUTH ONCE DAILY Label Comments: pt reports taking med at bedtime Rx Instructions: TAKE 1 CAPSULE BY MOUTH ONCE DAILY albuterol sulfate [Ventolin HFA] 90 mcg/actuation HFA aerosol inhaler 2 puff INHALATION Q4HP PRN (Reason: shortness of breath or wheezing) Qty: 1 5RF tizanidine 4 mg tablet 4 mg PO TIDP PRN (Reason: muscle spasticity) Qty: 270 3RF oxycodone-acetaminophen 10-325 mg tablet See Rx Instructions .ROUTE .COMPLEX Qty: 120 0RF Label Comments: pt has pain contract with provider and reports taking med last 01/20 @2000 Rx Instructions: take one tablet by mouth every 6 hours PRN for pain pregabalin 200 mg capsule See Rx Instructions .ROUTE .COMPLEX Qty: 270 3RF Label Comments: Last dose 01/20 @1400 Rx Instructions: Take 1 capsule by mouth 3 times daily bupropion HCl 150 mg tablet extended release 24 hr See Rx Instructions .ROUTE .COMPLEX Qty: 90 0RF Dose Instruction: TAKE 1 TABLET BY MOUTH EVERY MORNING Label Comments: pt reports taking med at bedtime Rx Instructions: TAKE 1 TABLET BY MOUTH EVERY MORNING metoprolol tartrate 25 mg tablet 25 mg PO BID Qty: 180 1RF Label Comments: pt reports taking med at bedtime Follow up/Referrals: Eduard Arreguin DO [Primary Care Provider] - Discharge Data Primary Care Provider: Eduard Arreguin Quality VTE Deep Vein Thrombosis/Pulmonary Embolism Present on Admission: No
--- NOTE | 2022-01-24 13:04 | PC.NURSE ---
Pt is dressed and ready for discharge home with Spouse. IV has been removed. O2 teaching has been performed by RT and Pt has a tank to go home with. Went over d/c instructions with Pt-discussed d/c meds, time of last dose, reviewed stroke education, reminded Pt to get up slowly from laying or sitting as she gets accustomed to her new BP meds. Discussed steroid taper and to follow up as directed. Pt denied further questions and was taken out to pov via w/c by PERFORMANCE IMPROVEMENT ANALYST with all belongings.
== END 2022-01-24 13:07 | disposition home or self-care (01) | DRG 133 ==
LOC: ED 02:02 → AC 02:20
PROVIDERS: Internal Medicine; Neuromusculoskeletal Medicine, Sports Medicine; Admitting Provider Family Medicine; Emergency Provider Emergency Medicine; PCP Family Medicine; Referring Provider Emergency Medicine; Visit Provider Family Medicine
DX: J96.01 Acute respiratory failure with hypoxia (principal); J12.9 Viral pneumonia, unspecified; J45.901 Unspecified asthma with (acute) exacerbation; J15.9 Unspecified bacterial pneumonia; E03.9 Hypothyroidism, unspecified; I10 Essential (primary) hypertension; E87.5 Hyperkalemia; F32.A Depression, unspecified; F17.210 Nicotine dependence, cigarettes, uncomplicated; Z20.822 Contact with and (suspected) exposure to COVID-19
CPT/HCPCS: 36415; 36600; 71046; 80048; 80053; 82550; 82553; 82805; 83605; 83735; 83880; 84145; 84484; 85025; 85027; 85379; 87040; 87633; 87635; 93005; 93010; 94150; 94618; 94640; 94762; 96374; 96375; 99284; 99285; C9803; J0696; J1100; J2920; J3475; J7613

== ENCOUNTER → 2022-01-31 10:14 | Outpatient (CLI) | payer OTHER, MEDICAID, SELFPAY ==
[2022-01-28 11:52] VITALS: BMI 44.9
[2022-01-31 13:15] LABS: BUN Creatinine Ratio 20.3 (6-22); Blood Urea Nitrogen 14 mg/dL (7-17); Calcium 9.1 mg/dL (8.4-10.2); Carbon Dioxide 30 mmol/L (22-32); Chloride 101 mmol/L (98-107); Estimated Glomerular Filt Rate > 60 mL/min (>60); Glucose 101 mg/dL (70-100); HEMOLYSIS < 15 (0-50); Potassium 4.1 mmol/L (3.4-5.1); Sodium 140 mmol/L (137-145)
== END ==
PROVIDERS: PCP Family Medicine; Referring Provider Internal Medicine; Visit Provider Internal Medicine
DX: I10 Essential (primary) hypertension (principal)
CPT/HCPCS: 80048

== ENCOUNTER 2022-10-08 13:24 | Day surgery (SDC) | payer OTHER, MEDICAID, SELFPAY ==
[2022-09-17 09:40] VITALS: BMI 44.9
[2022-10-08 13:41] VITALS: BP 165/101; PULSE 89; RESP 20; TEMP 35.9; O2SAT 99; BMI 46.5
[2022-10-08] MEDS: LACTATED RINGERS 1,000 ML 200 ML IV (13:55)
--- NOTE | 2022-10-08 14:22 | PM.PREOP ---
Pre-operative Note Interval Note History & Physical reviewed/Exam performed by Physician: Yes Changes to H&P: No
[2022-10-08 14:50] VITALS: BP 148/104; PULSE 93; RESP 14; O2SAT 97
--- NOTE | 2022-10-08 14:53 | PM.OP.COLON ---
Operative Date/Time/Diagnoses Date of procedure: 10/08/22 Time of procedure: 14:53 Pre-op diagnosis: Colorectal screening Post-op diagnosis: same Procedure & Clinicians Study performed: Colonoscopy Same procedure as scheduled: Yes Indications: Colorectal screening Surgeon: Patel Jane Procedure Notes Procedure in detail: The history and physical was performed/updated and the patient is ASA class is 3. The procedure was discussed in detail with the patient. Potential risks complications including infection, bleeding, missed diagnosis, perforation, need for surgery, and were explained. Their questions were answered and informed consent was obtained. Patient was brought to the procedure room and placed standard monitoring equipment. The patient's vital signs were monitored continuously throughout the entire procedure. Prior to starting time-out was performed. The patient was placed in the left lateral recumbent position. Procedural sedation was administered by anesthesia. Examination began with a thorough inspection of the perianal area there was no evidence of fissures, fistulae, external hemorrhoids or cutaneous malignancy. The colonoscopy scope was then placed into the anal canal and was advanced to the cecum, which was identified by the ileocecal valve, the appendiceal orifice and the confluence of the taenia. The scope was then slowly withdrawn examining colon thoroughly in all directions, irrigating it of any residual stool. No masses or polyps. Sigmoid colon notable for moderate diverticulosis. The patient tolerated the procedure well. They will be discharged once criteria are met. The prep was of good/excellent quality. The withdrawl time was 7 minutes. Specimen(s): none sent Impression: Normal colonoscopy Post-procedure Recommendations: Colonoscopy in 10 years and High fiber diet Disposition: same day surgery
[2022-10-08 14:54] VITALS: BP 151/106; PULSE 89; RESP 16; O2SAT 99
[2022-10-08 14:59] VITALS: BP 171/105; PULSE 85; RESP 14; TEMP 37.1; O2SAT 97
[2022-10-08 15:04] VITALS: BP 163/106; PULSE 75; RESP 10; O2SAT 98
== END 2022-10-08 15:19 | disposition home or self-care (01) ==
PROVIDERS: PCP Family Medicine; Referring Provider Surgery; Visit Provider Surgery
PROC: 0DJD8ZZ Inspection of Lower Intestinal Tract, Via Natural or Artificial Opening Endoscopic (ICD-10-PCS; CPT 45378; principal; 2022-10-08 14:15)
DX: Z12.11 Encounter for screening for malignant neoplasm of colon (principal); K57.30 Diverticulosis of large intestine without perforation or abscess without bleeding
CPT/HCPCS: 45378; J2704

== ENCOUNTER → 2022-10-16 08:16 | Outpatient (CLI) | payer OTHER, MEDICAID, SELFPAY ==
[2022-09-17 09:40] VITALS: BMI 44.9
[2022-10-16 08:38] LABS: Add Manual Diff / Slide Review NO; Basophils Absolute Auto 100 /uL (0-100); Basophils Percent Auto 1.3 % (0-2); Eosinophils Absolute Auto 600 /uL (0-450); Eosinophils Percent Auto 6.3 % (2-4); Hematocrit 42.2 % (36-46); Hemoglobin 14.2 g/dL (12.0-16.0); Lymphocytes Absolute Auto 2000 /uL (1100-4500); Lymphocytes Percent Auto 20.7 % (25-40); Mean Corpuscular HGB Conc 33.5 % (30-36); Mean Corpuscular Hemoglobin 29.9 PG (26-34); Mean Corpuscular Volume 89.2 fL (80-100); Monocytes Absolute Auto 700 /uL (0-900); Monocytes Percent Auto 6.9 % (3-14); Neutrophils Absolute Auto 6400 /uL (1500-7000); Neutrophils Percent Auto 64.8 % (50-75); Platelet Count 304 X10^3/uL (150-400); Red Blood Cell Count 4.73 X10^6/uL (4.0-5.2); Red Cell Distribution Width 15.8 % (11.6-14.8); White Blood Cell Count 9.8 X10^3/uL (4.5-11.0)
[2022-10-16 08:54] LABS: Alanine Aminotransferase 19 IU/L (<35); Albumin 4.3 g/dL (3.5-5.0); Albumin Globulin Ratio 1.3 (1.0-2.8); Alkaline Phosphatase 118 U/L (38-126); Aspartate Aminotransferase 23 IU/L (14-36); BUN Creatinine Ratio 12.5 (6-22); Bilirubin Total 0.2 mg/dL (0.2-1.3); Blood Urea Nitrogen 9 mg/dL (7-17); Calcium 9.2 mg/dL (8.4-10.2); Carbon Dioxide 32 mmol/L (22-32); Chloride 101 mmol/L (98-107); Cholesterol 207 mg/dL (140-199); Estimated Glomerular Filt Rate > 60 mL/min (>60); Globulin 3.2 g/dL (1.7-4.1); Glucose 105 mg/dL (70-100); HDL Cholesterol 44 mg/dL (40-60); HEMOLYSIS < 15 (0-50); LDL Cholesterol Calculated 112 mg/dL (<100); Potassium 3.8 mmol/L (3.4-5.1); Sodium 138 mmol/L (137-145); Total Protein 7.5 g/dL (6.3-8.2); Triglycerides 254 mg/dL (35-150)
[2022-10-16 09:10] LABS: Follicle Stimulating Hormone 8.65 mIU/mL; Prolactin 38.3 ng/mL (3.0-18.6)
[2022-10-16 09:23] LABS: TSH w/ Reflex to FT4 7.38 uIU/mL (0.47-4.68)
[2022-10-16 09:53] LABS: Free T4, Direct Thyroxine 0.93 ng/dL (0.78-2.19)
== END ==
PROVIDERS: PCP Family Medicine; Referring Provider Family Medicine; Visit Provider Family Medicine
DX: E03.9 Hypothyroidism, unspecified (principal); E66.01 Morbid (severe) obesity due to excess calories; Z68.41 Body mass index [BMI] 40.0-44.9, adult; Z68.42 Body mass index [BMI] 45.0-49.9, adult; N95.1 Menopausal and female climacteric states
CPT/HCPCS: 36415; 80053; 80061; 83001; 84146; 84439; 84443; 85025

== ENCOUNTER → 2022-11-06 13:41 | Outpatient (CLI) | payer OTHER, MEDICAID, SELFPAY ==
[2022-09-17 09:40] VITALS: BMI 44.9
== END ==
PROVIDERS: PCP Family Medicine; Visit Provider Nurse Practitioner Family
DX: J02.9 Acute pharyngitis, unspecified (principal)
CPT/HCPCS: 87070; 87880

== ENCOUNTER → 2023-01-17 16:01 | Outpatient (CLI) | payer OTHER, MEDICAID, SELFPAY ==
[2022-09-17 09:40] VITALS: BMI 44.9
[2023-01-17 17:08] LABS: TSH w/ Reflex to FT4 4.64 uIU/mL (0.47-4.68)
== END ==
PROVIDERS: PCP Family Medicine; Referring Provider Family Medicine; Visit Provider Family Medicine
DX: E03.9 Hypothyroidism, unspecified (principal)
CPT/HCPCS: 36415; 84443

== ENCOUNTER → 2023-04-07 14:26 | Outpatient (CLI) | payer OTHER, MEDICAID, SELFPAY ==
[2022-09-17 09:40] VITALS: BMI 44.9
--- NOTE | 2023-04-07 14:28 | DI.MG.S_ITS ---
BILATERAL DIGITAL SCREENING MAMMOGRAM 3D/2D WITH CAD: 04/07/2023 No prior exams were available for comparison. Both breasts are almost entirely fatty (category a/<25% glandular tissue). Current study was also evaluated with a Computer Aided Detection (CAD) system. There is a focal asymmetry with grouped calcifications in the left breast at 5 o'clock middle depth. No other significant masses, calcifications, or other findings are seen in either breast. IMPRESSION: INCOMPLETE: NEEDS ADDITIONAL IMAGING EVALUATION The focal asymmetry in the left breast is indeterminate. Spot magnification views as well as additional views with possible ultrasound are recommended. Based on the Tyrer Cuzick model (a risk assessment model) the patient's lifetime risk is 6.5% and her 10 year risk is 1.1%. According to the ACR, ACS, and NCCN guidelines, an annual breast MRI exam along with mammogram is recommended if the patient's lifetime risk is 20% or greater. This exam was interpreted at Station ID: [id number]. NOTE: For mammograms, a report in lay terms will be sent to the patient. Approximately 15% of breast malignancies will not be visualized mammographically. In the management of a palpable breast mass, a negative mammogram must not discourage biopsy of a clinically suspicious lesion. Electronically Signed By: Meagan alvarado/:04/07/2023 14:56:32 letter sent: Additional Imaging Needed ACR BI-RADS Category 0: Incomplete 3340F
[2023-04-07 15:56] LABS: Free T4, Direct Thyroxine 1.33 ng/dL (0.78-2.19)
[2023-04-07 16:11] LABS: TSH w/ Reflex to FT4 1.15 uIU/mL (0.47-4.68)
== END ==
PROVIDERS: PCP Family Medicine; Referring Provider Family Medicine; Visit Provider Family Medicine
DX: Z12.31 Encounter for screening mammogram for malignant neoplasm of breast (principal); E03.9 Hypothyroidism, unspecified
CPT/HCPCS: 36415; 77063; 77067; 84439; 84443

== ENCOUNTER → 2023-04-25 12:52 | Outpatient (CLI) | payer OTHER, MEDICAID, SELFPAY ==
[2022-09-17 09:40] VITALS: BMI 44.9
--- NOTE | 2023-04-25 | DI.MG.S_ITS ---
UNILATERAL LEFT DIGITAL DIAGNOSTIC MAMMOGRAM 3D/2D WITH ADDITIONAL VIEWS: 04/25/2023 CLINICAL: Additional evaluation requested from prior study. Comparison is made to exam dated: 04/07/2023 mammogram - [facility]. The left breast is almost entirely fatty (category a/<25% glandular tissue). There is a focal asymmetry with grouped calcifications in the left breast at 5 o'clock middle depth. This is seen in additional views. There is architectural distortion associated with the focal asymmetry. No other significant masses or calcifications are seen in the breast. IMPRESSION: INCOMPLETE: NEEDS ADDITIONAL IMAGING EVALUATION The focal asymmetry in the left breast at 5 o'clock middle depth is indeterminate. An ultrasound is recommended. Based on the Tyrer Cuzick model (a risk assessment model) the patient's lifetime risk is 6.5% and her 10 year risk is 1.1%. According to the ACR, ACS, and NCCN guidelines, an annual breast MRI exam along with mammogram is recommended if the patient's lifetime risk is 20% or greater. This exam was interpreted at Station ID: [id number]. NOTE: For mammograms, a report in lay terms will be sent to the patient. Approximately 15% of breast malignancies will not be visualized mammographically. In the management of a palpable breast mass, a negative mammogram must not discourage biopsy of a clinically suspicious lesion. Electronically Signed By: Chandan Mijares M.D. acr/:04/25/2023 13:19:19 ACR BI-RADS Category 0: Incomplete [id number]
--- NOTE | 2023-04-25 12:56 | DI.US.S_ITS ---
LIMITED ULTRASOUND OF LEFT BREAST: 04/25/2023 CLINICAL: Patient returns today to evaluate a focal asymmetry in the left breast. Comparison is made to exams dated: 04/25/2023 mammogram and 04/07/2023 mammogram - [facility]. Color flow ultrasound of the left breast 4 o'clock region was performed. Steiner scale images of the real-time examination were reviewed. In the left breast 4:00 position 5 cm from the nipple there is a duct with irregularity of the anterior wall. There is no vascularity. This measures about 2.9 mm. In the 5:00 position 9 cm from the nipple there is a cluster of microcalcifications adjacent to the ducts which are linearly oriented approximately 2.6 cm in length and 2 to 3 mm in thickness. There is also a left axillary lymph node measuring 3.3 x 1.9 x 1.3 cm with a cortex measuring 2.3 mm. IMPRESSION: SUSPICIOUS OF MALIGNANCY The mammogram demonstrates worrisome calcifications which are also localized with ultrasound. Recommend ultrasound-guided biopsy of this region of calcifications. Also recommend ultrasound-guided biopsy of the enlarged left axillary lymph node. Findings and recommendations were discussed with the patient by Dr Paulson. This exam was interpreted at Station ID: [id number]. Electronically Signed By: Chandan Mijares M.D. acr/:04/25/2023 14:00:28 Entry: aa - 04/29/2023 11:37:47 letter sent: Biopsy Required Ultrasound BI-RADS: 4b Moderate suspicion of malignancy
== END ==
PROVIDERS: PCP Family Medicine; Referring Provider Nurse Practitioner; Visit Provider Nurse Practitioner
DX: R92.8 Other abnormal and inconclusive findings on diagnostic imaging of breast (principal); R92.1 Mammographic calcification found on diagnostic imaging of breast; R59.0 Localized enlarged lymph nodes
CPT/HCPCS: 76642; 77065; G0279

== ENCOUNTER → 2023-05-28 12:34 | Outpatient (CLI) | payer OTHER, MEDICAID, SELFPAY ==
[2022-09-17 09:40] VITALS: BMI 44.9
--- NOTE | 2023-05-28 | DI.US.S_ITS ---
ULTRASOUND OF LEFT BREAST: 05/28/2023 CLINICAL: Pt came in today for left breast biopsy of 4:00 5cmfn calcs and prominent left axillary node. Definate area of calcs not identified by ultrasound and axillary node appears less prminent. Patient to reschedule for stereotactic biospy of calcs at [facility]. Comparison is made to exams dated: 04/25/2023 ultrasound, 04/25/2023 mammogram, and 04/07/2023 mammogram - [facility]. Doppler ultrasound of the left breast was performed. There is a mass in the left breast at 5 o'clock middle depth. IMPRESSION: SUSPICIOUS OF MALIGNANCY The mass in the left breast is at a moderate suspicion for malignancy. A vacuum biopsy is recommended. This exam was interpreted at Station ID: [id number]. Electronically Signed By: Fady Pereira M.D. pc/:05/29/2023 08:53:05 Ultrasound BI-RADS: 4b Moderate suspicion of malignancy
--- NOTE | 2023-05-28 12:38 | DI.RAD.S_ITS ---
PROCEDURE: XR CHEST 2V INDICATIONS: asthma, chest pain, sob TECHNIQUE: 2 views of the chest were acquired. COMPARISON: [facility], CR, XR CHEST 2V, 01/21/2022, 0:57. FINDINGS: Surgical changes and devices: None. Lungs and pleura: Lungs are clear. No pleural effusions or pneumothorax. Mediastinum: Heart size enlarged. Moderate vascular congestion. Obscuration left hemidiaphragm blunting the left costophrenic angle. Left pleural space clear Bones and chest wall: No suspicious bony abnormalities. Soft tissues appear unremarkable. IMPRESSION: Cardiomegaly, moderate vascular congestion and left pleural effusion Approved by: Nj Yoder M.D. on 05/28/2023 at 18:57
== END ==
PROVIDERS: PCP Family Medicine; Referring Provider Nurse Practitioner; Visit Provider Nurse Practitioner
DX: R92.1 Mammographic calcification found on diagnostic imaging of breast (principal); N63.23 Unspecified lump in the left breast, lower outer quadrant; J90 Pleural effusion, not elsewhere classified; J45.40 Moderate persistent asthma, uncomplicated; I51.7 Cardiomegaly; R09.89 Other specified symptoms and signs involving the circulatory and respiratory systems
CPT/HCPCS: 71046; 76642

== ENCOUNTER 2023-05-29 15:48 | Emergency (ER) | payer OTHER, MEDICAID, SELFPAY ==
[2022-09-17 09:40] VITALS: BMI 44.9
[2023-05-29] VITALS (10 sets, daily range): BP systolic 140–177; BP diastolic 88–102; PULSE 68–89; RESP 12–20; TEMP 36.7–36.8; O2SAT 92–99; BMI 44.9
--- NOTE | 2023-05-29 16:20 | DI.RAD.S_ITS ---
PROCEDURE: XR CHEST 1V INDICATIONS: suspected sepsis TECHNIQUE: One view of the chest was acquired. COMPARISON: [facility], CR, XR CHEST 2V, 05/28/2023, 13:43. [facility], CR, XR CHEST 2V, 01/21/2022, 0:57. FINDINGS: Surgical changes and devices: None. Lungs and pleura: Hazy left basilar airspace opacity. Peribronchial cuffing and increased pulmonary markings. Mediastinum: Mediastinal contours appear normal. Heart size is enlarged. Bones and chest wall: No suspicious bony lesions. Overlying soft tissues appear unremarkable. IMPRESSION: Hazy left basilar airspace opacity, could represent atelectasis or infection. Suspect mild pulmonary edema. Dictated by: Fady Pereira M.D. on 05/29/2023 at 16:57 Approved by: Fady Pereira M.D. on 05/29/2023 at 16:57
--- NOTE | 2023-05-29 16:51 | PC.NURSE ---
Pt reports feeling central chest pressure, 7/10.
[2023-05-29] MEDS: ASPIRIN 81 MG CHEW TAB 324 MG PO (16:52)
[2023-05-29 17:01] LABS: Influenza A - CEPHEID Flu A NEGATIVE (NEGATIVE); Influenza B - CEPHEID Flu B NEGATIVE (NEGATIVE); Respiratory Syncytial Virus Negative (Negative)
[2023-05-29 17:10] LABS: COVID-19 CEPHEID 4-PLEX PCR POSITIVE (Negative)
--- NOTE | 2023-05-29 17:11 | PC.NURSE ---
Pt came to ED because she was having intermittent chest pain and woke up gasping for air. Pt states that she currently has 6/10 pressure in her chest. pt has hx of asthma and htn. pt also states that she has been feeling ill for the past few days. Pt reports having a CXR done yesterday because she was feeling sick and like she could not get a deep breath. a&ox4. EKG done. Pt denies any sob at this time and no significant work of breathing observed. Dr Ceballos aware of pt status.
[2023-05-29 17:14] LABS: Add Manual Diff / Slide Review NO; Basophils Absolute Auto 100 /uL (0-100); Basophils Percent Auto 0.7 % (0-2); Eosinophils Absolute Auto 200 /uL (0-450); Eosinophils Percent Auto 2.5 % (2-4); Hematocrit 43.3 % (36-46); Hemoglobin 14.2 g/dL (12.0-16.0); Lymphocytes Absolute Auto 1400 /uL (1100-4500); Lymphocytes Percent Auto 16.9 % (25-40); Mean Corpuscular HGB Conc 32.8 % (30-36); Mean Corpuscular Hemoglobin 27.9 PG (26-34); Mean Corpuscular Volume 85.1 fL (80-100); Monocytes Absolute Auto 500 /uL (0-900); Monocytes Percent Auto 6.6 % (3-14); Neutrophils Absolute Auto 5900 /uL (1500-7000); Neutrophils Percent Auto 73.3 % (50-75); Platelet Count 281 X10^3/uL (150-400); Red Blood Cell Count 5.09 X10^6/uL (4.0-5.2); Red Cell Distribution Width 16.1 % (11.6-14.8); White Blood Cell Count 8.1 X10^3/uL (4.5-11.0)
[2023-05-29 17:21] LABS: Prothrombin Time 11.5 SECONDS (9.4-12.5)
[2023-05-29 17:24] LABS: PTT Partial Thromboplastin Tim 33 SECONDS (25.1-36.5)
[2023-05-29 17:31] LABS: Alanine Aminotransferase 15 IU/L (<35); Albumin 4.3 g/dL (3.5-5.0); Albumin Globulin Ratio 1.2 (1.0-2.8); Alkaline Phosphatase 99 U/L (38-126); Aspartate Aminotransferase 20 IU/L (14-36); BUN Creatinine Ratio 12.8 (6-22); Bilirubin Total 0.6 mg/dL (0.2-1.3); Blood Urea Nitrogen 11 mg/dL (7-17); Calcium 9.4 mg/dL (8.4-10.2); Carbon Dioxide 29 mmol/L (22-32); Chloride 103 mmol/L (98-107); Estimated Glomerular Filt Rate > 60 mL/min (>60); Globulin 3.5 g/dL (1.7-4.1); Glucose 81 mg/dL (70-100); HEMOLYSIS < 15 (0-50); Lipase 44 U/L (23-300); Sodium 139 mmol/L (137-145); Total Protein 7.8 g/dL (6.3-8.2)
[2023-05-29 17:41] LABS: NT-proBNP (BNP-Adult 18+) 416 pg/mL (<125)
[2023-05-29 17:49] LABS: Procalcitonin 0.03 ng/mL (<0.5)
--- NOTE | 2023-05-29 18:29 | ED_ITS ---
HPI - URI/Sore Throat General Chief Complaint: Upper Respiratory Symptoms Stated Complaint: sent to rule out pneumonis Time Seen by Provider: 05/29/23 16:59 Source: patient Mode of arrival: Ambulatory History of Present Illness HPI Narrative: 42-year-old female with history of asthma, hypertension presents by private vehicle from home for cough, shortness of breath, chest pain. Patient had an x- ray yesterday through her primary care doctor, and there was concern that there may be pneumonia, so she was referred to the emergency department for further workup. She reports chest pressure and shortness of breath that is worse when she lays down. She has been using her albuterol inhaler more frequently. Denies history of heart problems. Related Data Previous Rx's Medication Instructions Recorded tizanidine 4 mg tablet 4 mg PO 3XD PRN for muscle spasm 04/22/16 #270 tabs albuterol sulfate 2.5 mg/3 mL 2.5 mg (3 mL) inhalation Q4-6H PRN 11/01/20 (0.083 %) solution for nebulization bronchospasm #90 mL metoprolol tartrate 25 mg tablet 25 mg PO BID #180 tabs 08/12/22 terbinafine HCl 250 mg tablet 250 mg PO 3XW #36 tabs 08/12/22 bupropion HCl 150 mg 24 hr tablet, See Rx Instructions .Route 09/18/22 extended release .COMPLEX #90 tabs duloxetine 60 mg capsule,delayed See Rx Instructions .Route 09/18/22 release .COMPLEX #90 caps amitriptyline 150 mg tablet See Rx Instructions .Route 10/04/22 .COMPLEX #90 tabs clonidine HCl 0.1 mg tablet See Rx Instructions .Route 10/16/22 .COMPLEX #30 tabs lisinopril 10 mg tablet 10 mg PO DAILY #90 tabs 10/16/22 doxycycline hyclate 100 mg capsule 100 mg PO BID #14 caps 11/06/22 fluticasone propionate 50 1 spray intranasal Q12H #16 grams 11/06/22 mcg/actuation nasal spray,suspension (Flonase Allergy Relief) oxycodone-acetaminophen 10 mg-325 See Rx Instructions .Route 11/11/22 mg tablet .COMPLEX #120 tabs albuterol sulfate 90 mcg/actuation 2 puff inhalation Q4HP PRN 01/24/23 aerosol inhaler (Ventolin HFA) shortness of breath or wheezing #1 ea levothyroxine 150 mcg tablet 150 mcg PO DAILY #90 tabs 02/13/23 pregabalin 200 mg capsule See Rx Instructions .Route 02/18/23 .COMPLEX #270 caps oxycodone 5 mg tablet 10 mg (2 x 5 mg) PO Q4H PRN pain 05/12/23 #240 tabs quetiapine 25 mg tablet See Rx Instructions .Route 05/12/23 .COMPLEX #90 tabs cefpodoxime 200 mg tablet 200 mg PO Q12H #10 tabs 05/29/23 doxycycline hyclate 100 mg capsule 100 mg PO BID #10 caps 05/29/23 Allergies Allergy/AdvReac Type Severity Reaction Status Date / Time Penicillins [PENICILLINS] Allergy Mild Rash Verified 04/15/23 11:39 fluconazole [From DIFLUCAN] AdvReac Intermediate vomiting Verified 04/15/23 11:39 and abd pain codeine [CODEINE] AdvReac Mild NAUSEA Verified 04/15/23 11:39 Review of Systems Review of Systems Narrative: Otherwise negative Patient History Medical History Hot flashes due to menopause Onychomycosis Chronic pain due to neoplasm Functional memory problem BMI 45.0-49.9, adult History of colon polyps Insomnia disorder, with non-sleep disorder mental comorbidity Bilateral chronic knee pain Acute pain of right knee UTI (urinary tract infection) Paget's disease of bone Obstructive sleep apnea on CPAP Lymphedema of arm Essential hypertension Major depressive disorder Abrasion, corneal Migraines Fibromyalgia (~05/2017) History of PCR DNA positive for HSV1 (~2014) Hypothyroidism (~2008) Rheumatoid arthritis Asthma Depression Irritable bowel syndrome Diverticular disease (~2015) Gestational diabetes mellitus (GDM) (10/27/14) Morbid obesity with body mass index (BMI) of 40.0 to 44.9 in adult (11/08/10) Surgical History Status post laparoscopy (01/19/16) Status post laparoscopic supracervical hysterectomy (10/23/15) Status post delivery (12/30/14) Status post tubal ligation (12/30/14) Status post surgery (07/07/12) Family History Grandmother Stroke Grandfather Heart disease Cancer Father Hypertension Mother Hypothyroidism (acquired) Social History marital status: household members: spouse and children lives independently: Yes Smoking Status: Current some day smoker alcohol intake: current substance use type: does not use Smoking Status: Current some day smoker tobacco type: cigarettes and vaping alcohol intake frequency: holidays/special occasions only Substance Use Type: marijuana Exam Initial Vital Signs Initial Vital Signs: Vital Signs Temperature 98.1 F 05/29/23 15:51 Pulse Rate 89 05/29/23 15:51 Respiratory Rate 18 05/29/23 15:51 Blood Pressure 143/88 H 05/29/23 15:51 Pulse Oximetry 98 05/29/23 15:51 Oxygen Delivery Method Room Air 05/29/23 15:51 Const: Awake, alert, no acute distress, nontoxic appearing Cardiac: regular rate, regular rhythm RESP: unlabored, Soft expiratory wheezes upper lung sánchez GI: Atraumatic, soft, nontender MSK: Atraumatic, full range of motion, pulses equal, no edema Skin: Warm, Dry, intact, no rashes Neuro: AO x3, CN II-XII grossly intact, moves all extremities Psych: affect normal, mood normal, not suicidal, not homicidal Course Orders Ordered: ED Orders 05/29/23 18:37 CT angio chest PE protocol Stat Discontinued Medications Albuterol/Ipratropium (Albuterol/Ipratropium 3 Ml Ampul) 6 ml INH NOW ONE Stop: 05/29/23 18:31 Last Admin: 05/29/23 19:52 Dose: 6 ml Documented By: ROSSY Aspirin (Aspirin 81 Mg Chew Tab) 324 mg PO NOW ONE Stop: 05/29/23 16:49 Last Admin: 05/29/23 16:52 Dose: 324 mg Documented By: INGA Methylprednisolone (Methylprednisolone 125 Mg/2 Ml Vial) 125 mg IV NOW ONE Stop: 05/29/23 18:31 Last Admin: 05/29/23 18:48 Dose: 125 mg Documented By: JACKELYN Ondansetron HCl (Ondansetron 4 Mg/2 Ml Inj) 4 mg IV NOW PRN PRN Reason: Nausea And Vomiting Ondansetron HCl (Ondansetron 4 Mg Odt) 4 mg SL NOW PRN PRN Reason: Nausea And Vomiting Vital Signs Vital signs: Vital Signs - 8 hr 05/29/23 19:53 05/29/23 19:54 05/29/23 19:54 Temperature Pulse Rate 74 73 Blood Pressure 177/93 H Pulse Oximetry 95 95 Oxygen Delivery Method Room Air 05/29/23 20:00 05/29/23 20:00 05/29/23 20:15 Temperature 98.3 F Pulse Rate 74 74 Blood Pressure 168/102 H Pulse Oximetry 94 92 Oxygen Delivery Method Room Air 05/29/23 20:15 Temperature Pulse Rate Blood Pressure 155/98 H Pulse Oximetry Oxygen Delivery Method MDM - URI/Sore Throat Differential Diagnosis Differential diagnosis: Likely upper respiratory infection, croup and otitis media Lab Data 05/29/23 17:00 05/29/23 17:00 Labs: Lab Results 05/29/23 05/29/23 Range/Units 16:00 17:00 WBC 8.1 (4.5-11.0) X10^3/uL RBC 5.09 (4.0-5.2) X10^6/uL Hgb 14.2 (12.0-16.0) g/dL Hct 43.3 (36-46) % MCV 85.1 (80-100) fL MCH 27.9 (26-34) PG MCHC 32.8 (30-36) % RDW 16.1 H (11.6-14.8) % Plt Count 281 (150-400) X10^3/uL Neut % (Auto) 73.3 (50-75) % Lymph % (Auto) 16.9 L (25-40) % Sandoval % (Auto) 6.6 (3-14) % Eos % (Auto) 2.5 (2-4) % Baso % (Auto) 0.7 (0-2) % Neut # (Auto) 5900 (9491-8938) /uL Lymph # (Auto) 1400 (9960-2334) /uL Sandoval # (Auto) 500 (0-900) /uL Eos # (Auto) 200 (0-450) /uL Baso # (Auto) 100 (0-100) /uL PT 11.5 (9.4-12.5) SECONDS INR 1.0 (0.9-1.3) APTT 33 (25.1-36.5) SECONDS Sodium 139 (137-145) mmol/L Potassium 4.0 (3.4-5.1) mmol/L Chloride 103 (98-107) mmol/L Carbon Dioxide 29 (22-32) mmol/L BUN 11 (7-17) mg/dL Creatinine 0.86 (0.52-1.04) mg/dL Estimated GFR > 60 (>60) mL/min BUN/Creatinine Ratio 12.8 (6-22) Glucose 81 (70-100) mg/dL Lactate 1.0 (0.7-2.1) mmol/L Calcium 9.4 (8.4-10.2) mg/dL Total Bilirubin 0.6 (0.2-1.3) mg/dL AST 20 (14-36) IU/L ALT 15 (<35) IU/L Alkaline Phosphatase 99 (38-126) U/L Total Creatine Kinase 84 (30-135) U/L Troponin I < 0.012 (0.01-0.034) ng/mL NT-Pro-B Natriuret Pep 416 H (<125) pg/mL Total Protein 7.8 (6.3-8.2) g/dL Albumin 4.3 (3.5-5.0) g/dL Globulin 3.5 (1.7-4.1) g/dL Albumin/Globulin Ratio 1.2 (1.0-2.8) Lipase 44 (23-300) U/L Procalcitonin 0.03 (<0.5) ng/mL SARS-CoV-2 (PCR) Positive H (Negative) Influenza A (RT-PCR) Flu a negative (NEGATIVE) Influenza B (RT-PCR) Flu b negative (NEGATIVE) RSV (PCR) Negative (Negative) ECG Data Interpretation: Normal sinus rhythm, no ST-T wave changes, normal UT, no STEMI MDM Narrative Medical decision making narrative: Possible pneumonia seen on outside x-ray imaging. Patient conversational on room air, saturations >95%. Soft expiratory wheezes auscultated, will order steroids and nebulizers. Patient tested positive for COVID, CXR does show L sided opacity that could be infectious. Patient has no leukocytosis, normal electrolytes, BNP mildly elevated at 416, troponin <0.012, procalcitonin 0.03. Labs do not support diagnosis of bacterial pneumonia, however with abnormal cxr, possible PNA, and question of pulmonary edema will order CTA. CTA shows left sided infiltrate concerning for pneumonia. Plan to treat as bacterial pneumonia, since patient has underlying lung disease we will discharge with dual antibiotics. Patient reports allergy to penicillins, cefpodoxime and doxycycline sent to pharmacy of choice. Patient requested refill of albuterol, which was done Discharge Plan Departure Patient Disposition: Home Clinical Impression: COVID Pneumonia Qualifiers: Pneumonia type: due to unspecified organism Laterality: left Lung location: l ower lobe of lung Qualified Code(s): J18.9 - Pneumonia, unspecified organism Dyspnea Qualifiers: Dyspnea type: shortness of breath Qualified Code(s): R06.02 - Shortness of breath Instructions: DI for Pneumonia -- Adult, COVID-19 Prescriptions: New cefpodoxime 200 mg tablet 200 mg PO Q12H Qty: 10 0RF Rx Instructions: must administer with a meal/food doxycycline hyclate 100 mg capsule 100 mg PO BID Qty: 10 0RF No Action doxycycline hyclate 100 mg capsule 100 mg PO BID Qty: 14 0RF fluticasone propionate [Flonase Allergy Relief] 50 mcg/actuation spray,suspension 1 spray intranasal Q12H Qty: 16 0RF Rx Instructions: administer into each nostril albuterol sulfate 2.5 mg /3 mL (0.083 %) solution for nebulization 2.5 mg INHALATION Q4-6H PRN (Reason: bronchospasm) Qty: 90 3RF duloxetine 60 mg capsule,delayed release(DR/EC) See Rx Instructions .ROUTE .COMPLEX Qty: 90 3RF Dose Instruction: TAKE 1 CAPSULE BY MOUTH ONCE DAILY Patient Comments: pt reports taking med at bedtime Rx Instructions: TAKE 1 CAPSULE BY MOUTH ONCE DAILY bupropion HCl 150 mg tablet extended release 24 hr See Rx Instructions .ROUTE .COMPLEX Qty: 90 3RF Dose Instruction: TAKE 1 TABLET (150 MG) ORALLY DAILY Rx Instructions: TAKE 1 TABLET (150 MG) ORALLY DAILY amitriptyline 150 mg tablet See Rx Instructions .ROUTE .COMPLEX Qty: 90 3RF Dose Instruction: TAKE 1 TABLET (150 MG) ORALLY DAILY AT BEDTIME Rx Instructions: TAKE 1 TABLET (150 MG) ORALLY DAILY AT BEDTIME oxycodone-acetaminophen 10-325 mg tablet See Rx Instructions .ROUTE .COMPLEX Qty: 120 0RF Hold Instructions: Unavailable Patient Comments: pt has pain contract with provider and reports taking med last 01/20 @2000 Rx Instructions: take one tablet by mouth every 6 hours PRN for pain EXEMPT tizanidine 4 mg tablet 4 mg PO 3XD PRN (Reason: for muscle spasm) Qty: 270 0RF albuterol sulfate [Ventolin HFA] 90 mcg/actuation HFA aerosol inhaler 2 puff INHALATION Q4HP PRN (Reason: shortness of breath or wheezing) Qty: 1 5RF pregabalin 200 mg capsule See Rx Instructions .ROUTE .COMPLEX Qty: 270 3RF Patient Comments: Last dose 01/20 @1400 Rx Instructions: Take 1 capsule by mouth 3 times daily oxycodone 5 mg tablet 10 mg PO Q4H PRN (Reason: pain) Qty: 240 0RF Rx Instructions: EXEMPT quetiapine 25 mg tablet See Rx Instructions .ROUTE .COMPLEX Qty: 90 11RF Dose Instruction: TAKE 3 TABLETS BY MOUTH EVERY NIGHT AT BEDTIME. DUE FOR APPOINTMENT Rx Instructions: TAKE 3 TABLETS BY MOUTH EVERY NIGHT AT BEDTIME. DUE FOR APPOINTMENT metoprolol tartrate 25 mg tablet 25 mg PO BID Qty: 180 1RF Patient Comments: pt reports taking med at bedtime terbinafine HCl 250 mg tablet 250 mg PO 3XW Qty: 36 3RF levothyroxine 150 mcg tablet 150 mcg PO DAILY Qty: 90 3RF clonidine HCl 0.1 mg tablet See Rx Instructions .ROUTE .COMPLEX Qty: 30 5RF Dose Instruction: TAKE 1/2 TABLET BY MOUTH TWICE DAILY Rx Instructions: TAKE 1/2 TABLET BY MOUTH TWICE DAILY lisinopril 10 mg tablet 10 mg PO DAILY Qty: 90 3RF Referrals: Eduard Arreguin DO [Primary Care Provider] - Stand Alone Forms: Patient Portal/API
--- NOTE | 2023-05-29 18:37 | DI.CT.S_ITS ---
PROCEDURE: CT ANGIO CHEST PE PROTOCOL INDICATIONS: DYSPNEA, T WAVE CHANGES, +COVID TECHNIQUE: After the administration of intravenous contrast, 2 mm thick sections acquired from the pulmonary apices to the posterior costophrenic angles. 3-dimensional maximum intensity projection (MIP) coronal and sagittal reformats were then acquired through the thorax. For radiation dose reduction, the following was used: automated exposure control, adjustment of mA and/or kV according to patient size. COMPARISON: [facility], CT, CT ANGIO CHEST PE PROTOCOL, 02/28/2020, 1:26. FINDINGS: Image quality: Diagnostic. Pulmonary arteries: Pulmonary arteries are normal in size, and demonstrate no intraluminal filling defects to suggest central pulmonary embolism. Lower Neck: No enlarged lymph nodes. Thyroid: No thyroid nodules which require sonographic follow up, per consensus guidelines. Axillae: No enlarged lymph nodes. Chest Wall: Unremarkable. Bones: Unremarkable. Lungs and Pleura: Small left pleural effusion. Mild, streaky consolidation in the left lower lobe. Mosaic attenuation. Heart: Heart size is normal. No pericardial effusion. Thoracic Vessels: No aortic aneurysm. Mediastinum and Corin: No enlarged lymph nodes. Prominent number of mediastinal lymph nodes, likely reactive. Esophagus: Circumferential thickening of the esophagus. Upper Abdomen: Visualized upper abdomen solid organs and bowel loops appear normal. IMPRESSION: No pulmonary embolus. Mild left lower lobe consolidation, concerning for bacterial pneumonia. Small left pleural effusion. Circumferential thickening of the esophagus, likely esophagitis. Dictated by: Fady Pereira M.D. on 05/29/2023 at 19:49 Approved by: Fady Pereira M.D. on 05/29/2023 at 19:52
[2023-05-29] MEDS: methylPREDNISolone 125 MG/2 ML VIAL IV (18:48)
[2023-05-29 18:54] LABS: Creatine Kinase 84 U/L (30-135)
[2023-05-29 19:07] LABS: Troponin I < 0.012 ng/mL (0.01-0.034)
[2023-05-29] MEDS: ALBUTEROL/IPRATROPIUM 3 ML AMPUL 6 ML INH (19:52)
== END 2023-05-29 20:20 | disposition home or self-care (01) ==
PROVIDERS: Emergency Medicine; Emergency Provider Emergency Medicine; PCP Family Medicine
DX: U07.1 COVID-19 (principal); J18.9 Pneumonia, unspecified organism; R06.02 Shortness of breath; R07.9 Chest pain, unspecified; Z79.899 Other long term (current) drug therapy
CPT/HCPCS: 0241U; 36415; 71045; 71275; 80053; 82550; 83605; 83690; 83880; 84145; 84484; 85025; 85610; 85730; 87040; 93005; 94640; 96374; 99284; 99285; J2930

== ENCOUNTER 2023-06-24 01:41 | Emergency (ER) | payer OTHER, MEDICAID, SELFPAY ==
[2022-09-17 09:40] VITALS: BMI 44.9
[2023-06-24] VITALS (15 sets, daily range): BP systolic 121–202; BP diastolic 59–101; PULSE 79–103; RESP 16–20; TEMP 36.6; O2SAT 90–97; BMI 43.9
[2023-06-24 01:59] LABS: Add Manual Diff / Slide Review NO; Basophils Absolute Auto 100 /uL (0-100); Basophils Percent Auto 0.6 % (0-2); Eosinophils Absolute Auto 300 /uL (0-450); Eosinophils Percent Auto 3.6 % (2-4); Hematocrit 45.4 % (36-46); Hemoglobin 14.9 g/dL (12.0-16.0); Lymphocytes Absolute Auto 1600 /uL (1100-4500); Lymphocytes Percent Auto 20.9 % (25-40); Mean Corpuscular HGB Conc 32.9 % (30-36); Mean Corpuscular Hemoglobin 28.3 PG (26-34); Mean Corpuscular Volume 86.1 fL (80-100); Monocytes Absolute Auto 500 /uL (0-900); Monocytes Percent Auto 6.1 % (3-14); Neutrophils Absolute Auto 5400 /uL (1500-7000); Neutrophils Percent Auto 68.8 % (50-75); Platelet Count 259 X10^3/uL (150-400); Red Blood Cell Count 5.27 X10^6/uL (4.0-5.2); Red Cell Distribution Width 17.1 % (11.6-14.8); White Blood Cell Count 7.8 X10^3/uL (4.5-11.0)
--- NOTE | 2023-06-24 02:01 | PC.NURSE ---
poison control called prior to pt's arrival and stated about 0110 pt took unknown # of tizanidine accidentally. 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
[2023-06-24 02:11] LABS: Acetaminophen < 10 ug/mL (10-30); Alanine Aminotransferase 23 IU/L (<35); Albumin 4.3 g/dL (3.5-5.0); Albumin Globulin Ratio 1.2 (1.0-2.8); Alkaline Phosphatase 108 U/L (38-126); Aspartate Aminotransferase 40 IU/L (14-36); BUN Creatinine Ratio 9.2 (6-22); Bilirubin Total 0.8 mg/dL (0.2-1.3); Blood Urea Nitrogen 8 mg/dL (7-17); Calcium 9.2 mg/dL (8.4-10.2); Carbon Dioxide 31 mmol/L (22-32); Chloride 99 mmol/L (98-107); Estimated Glomerular Filt Rate > 60 mL/min (>60); Ethanol (ETOH) < 10 mg/dL; Globulin 3.5 g/dL (1.7-4.1); Glucose 103 mg/dL (70-100); HEMOLYSIS 18 (0-50); Potassium 3.7 mmol/L (3.4-5.1); Salicylate < 1.0 mg/dL (<20); Sodium 139 mmol/L (137-145); Total Protein 7.8 g/dL (6.3-8.2)
--- NOTE | 2023-06-24 02:35 | ED.OVERDOSE ---
HPI - Overdose General Chief Complaint: Toxicology Problem Stated Complaint: accidental overdose on meds Time Seen by Provider: 06/24/23 01:47 Source: patient Mode of arrival: Ambulatory History of Present Illness HPI Narrative: 42-year-old female presents concerned about an accidental ingestion of tizanidine. This is her medication. States that she had fallen asleep, the pills were in a bottle at her bedside and she thought that they were her regular nighttime medications which she had not yet taken. She says that about 1:00 a.m., approximately an hour prior to arrival she took an unknown number of 4 mg tizanidine tablets. This was accidental. When originally filled in December it was a 90 pill bottle. She says there was about a quarter left. At present she feels a little sleepy but otherwise is not having symptoms. No alcohol or recreational drug use. She is accompanied by her boyfriend who expresses no concern that this was a suicide attempt. Related Data Previous Rx's Medication Instructions Recorded tizanidine 4 mg tablet 4 mg PO 3XD PRN for muscle spasm 04/22/16 #270 tabs albuterol sulfate 2.5 mg/3 mL 2.5 mg (3 mL) inhalation Q4-6H PRN 11/01/20 (0.083 %) solution for nebulization bronchospasm #90 mL metoprolol tartrate 25 mg tablet 25 mg PO BID #180 tabs 08/12/22 terbinafine HCl 250 mg tablet 250 mg PO 3XW #36 tabs 08/12/22 bupropion HCl 150 mg 24 hr tablet, See Rx Instructions .Route 09/18/22 extended release .COMPLEX #90 tabs duloxetine 60 mg capsule,delayed See Rx Instructions .Route 09/18/22 release .COMPLEX #90 caps amitriptyline 150 mg tablet See Rx Instructions .Route 10/04/22 .COMPLEX #90 tabs clonidine HCl 0.1 mg tablet See Rx Instructions .Route 10/16/22 .COMPLEX #30 tabs lisinopril 10 mg tablet 10 mg PO DAILY #90 tabs 10/16/22 doxycycline hyclate 100 mg capsule 100 mg PO BID #14 caps 11/06/22 fluticasone propionate 50 1 spray intranasal Q12H #16 grams 11/06/22 mcg/actuation nasal spray,suspension (Flonase Allergy Relief) oxycodone-acetaminophen 10 mg-325 See Rx Instructions .Route 11/11/22 mg tablet .COMPLEX #120 tabs albuterol sulfate 90 mcg/actuation 2 puff inhalation Q4HP PRN 01/24/23 aerosol inhaler (Ventolin HFA) shortness of breath or wheezing #1 ea levothyroxine 150 mcg tablet 150 mcg PO DAILY #90 tabs 02/13/23 quetiapine 25 mg tablet See Rx Instructions .Route 05/12/23 .COMPLEX #90 tabs cefpodoxime 200 mg tablet 200 mg PO Q12H #10 tabs 05/29/23 doxycycline hyclate 100 mg capsule 100 mg PO BID #10 caps 05/29/23 pregabalin 200 mg capsule See Rx Instructions .Route 06/03/23 .COMPLEX #270 caps oxycodone 5 mg tablet 10 mg (2 x 5 mg) PO Q4H PRN pain 06/09/23 #240 tabs Allergies Allergy/AdvReac Type Severity Reaction Status Date / Time Penicillins [PENICILLINS] Allergy Mild Rash Verified 04/15/23 11:39 fluconazole [From DIFLUCAN] AdvReac Intermediate vomiting Verified 04/15/23 11:39 and abd pain codeine [CODEINE] AdvReac Mild NAUSEA Verified 04/15/23 11:39 Patient History Medical History Hot flashes due to menopause Onychomycosis Chronic pain due to neoplasm Functional memory problem BMI 45.0-49.9, adult History of colon polyps Insomnia disorder, with non-sleep disorder mental comorbidity Bilateral chronic knee pain Acute pain of right knee UTI (urinary tract infection) Paget's disease of bone Obstructive sleep apnea on CPAP Lymphedema of arm Essential hypertension Major depressive disorder Abrasion, corneal Migraines Fibromyalgia (~05/2017) History of PCR DNA positive for HSV1 (~2014) Hypothyroidism (~2008) Rheumatoid arthritis Asthma Depression Irritable bowel syndrome Diverticular disease (~2015) Gestational diabetes mellitus (GDM) (10/27/14) Morbid obesity with body mass index (BMI) of 40.0 to 44.9 in adult (11/08/10) Surgical History Status post laparoscopy (01/19/16) Status post laparoscopic supracervical hysterectomy (10/23/15) Status post delivery (12/30/14) Status post tubal ligation (12/30/14) Status post surgery (07/07/12) Family History Grandmother Stroke Grandfather Heart disease Cancer Father Hypertension Mother Hypothyroidism (acquired) Social History marital status: household members: spouse and children lives independently: Yes Smoking Status: Current some day smoker alcohol intake: current substance use type: does not use Smoking Status: Current some day smoker tobacco type: cigarettes and vaping alcohol intake frequency: holidays/special occasions only Substance Use Type: marijuana Exam Initial Vital Signs Initial Vital Signs: Vital Signs Pulse Rate 103 H 06/24/23 01:45 Blood Pressure 183/88 H 06/24/23 01:45 Pulse Oximetry 93 06/24/23 01:45 Const Other: Alert appears to be in no distress fully oriented and cooperative [facility] Other: Oral mucosa is moist Eyes Other: Pupils are normal in size extraocular movements are intact no nystagmus. Resp Effort & Inspection: normal respiratory effort Auscultation: clear to auscultation bilaterally Cardio Other: Regular rhythm rate no murmur rub or gallop GI Other: Abdomen is soft and nontender Skin Other: Skin is warm and dry normal color Neuro General: patient alert and patient oriented x3 Cognition: normal cognition Motor: muscle tone normal throughout Psych Appearance: grossly normal Mental Status: mental status grossly normal Speech and Movement: speech and movement normal Mood: congruent mood Affect: normal affect Thought Process: normal Thought Content: normal Judgment: judgment good Course Orders Ordered: ED Orders 06/24/23 01:49 EKG-12 Lead Stat 06/24/23 01:51 Acetaminophen Stat CBC Auto Diff [Complete Blood Count AUTO DIFF] Stat CMP [Comprehensive Metabolic Panel] Stat ETOH [Ethanol (ETOH)] Stat Salicylate Stat Troponin I Stat 06/24/23 05:55 EKG-12 Lead Stat Discontinued Medications Lisinopril (Lisinopril 10 Mg Tablet) 10 mg PO NOW ONE Stop: 06/24/23 06:20 Last Admin: 06/24/23 06:30 Dose: 10 mg Metoprolol Tartrate (Metoprolol Ir 25 Mg Tablet) 25 mg PO NOW ONE Stop: 06/24/23 06:20 Last Admin: 06/24/23 06:30 Dose: 25 mg Reevaluation(s) Reevaluation #1: At 6:15 a.m., the patient is re-evaluated. She is resting, says that she feels tired. She is alert however. Pupils are dilated, heart rate is normal she is hypertensive with a systolic of 202, this may be secondary to her not having had her blood pressure medications. I think it is going to be cook to watch her for another couple of hours. I will order her hypertension medications. Reevaluation #2: At 7:00 a.m., the patient states she is feeling better and would like to go. I will discharge her Vital Signs Vital signs: Vital Signs - 8 hr 06/24/23 01:45 06/24/23 01:45 06/24/23 01:49 Temperature 98 F Pulse Rate 103 H 97 H Respiratory Rate 18 Blood Pressure 183/88 H 183/88 H Pulse Oximetry 93 90 L Oxygen Delivery Method Room Air 06/24/23 02:00 06/24/23 02:00 06/24/23 02:30 Temperature Pulse Rate 86 83 Respiratory Rate 16 18 Blood Pressure 133/87 Pulse Oximetry 94 95 Oxygen Delivery Method Room Air Room Air 06/24/23 02:30 06/24/23 03:00 06/24/23 03:00 Temperature Pulse Rate 82 Respiratory Rate Blood Pressure 124/73 121/66 Pulse Oximetry 94 Oxygen Delivery Method 06/24/23 03:30 06/24/23 03:30 06/24/23 04:00 Temperature Pulse Rate 79 80 Respiratory Rate 19 Blood Pressure 122/70 Pulse Oximetry 93 92 Oxygen Delivery Method Room Air 06/24/23 04:00 06/24/23 04:30 06/24/23 04:31 Temperature Pulse Rate 81 Respiratory Rate 16 Blood Pressure 128/68 131/59 L Pulse Oximetry 95 Oxygen Delivery Method 06/24/23 04:31 06/24/23 05:00 06/24/23 05:00 Temperature Pulse Rate 81 80 Respiratory Rate 19 Blood Pressure 140/86 Pulse Oximetry 95 96 Oxygen Delivery Method Room Air 06/24/23 05:30 06/24/23 05:30 06/24/23 06:00 Temperature Pulse Rate 81 84 Respiratory Rate 20 Blood Pressure 135/101 H Pulse Oximetry 97 97 Oxygen Delivery Method Room Air 06/24/23 06:00 06/24/23 06:25 06/24/23 06:25 Temperature Pulse Rate 82 Respiratory Rate Blood Pressure 202/97 H 152/87 H Pulse Oximetry 97 Oxygen Delivery Method 06/24/23 06:26 06/24/23 06:30 06/24/23 06:30 Temperature Pulse Rate 80 81 Respiratory Rate 19 Blood Pressure 152/87 H 152/87 H Pulse Oximetry 97 Oxygen Delivery Method Room Air 06/24/23 06:30 Temperature Pulse Rate Respiratory Rate Blood Pressure 148/88 H Pulse Oximetry Oxygen Delivery Method MDM - Overdose Lab Data 06/24/23 01:51 06/24/23 01:51 Labs: Lab Results 06/24/23 Range/Units 01:51 WBC 7.8 (4.5-11.0) X10^3/uL RBC 5.27 H (4.0-5.2) X10^6/uL Hgb 14.9 (12.0-16.0) g/dL Hct 45.4 (36-46) % MCV 86.1 (80-100) fL MCH 28.3 (26-34) PG MCHC 32.9 (30-36) % RDW 17.1 H (11.6-14.8) % Plt Count 259 (150-400) X10^3/uL Neut % (Auto) 68.8 (50-75) % Lymph % (Auto) 20.9 L (25-40) % Bucks % (Auto) 6.1 (3-14) % Eos % (Auto) 3.6 (2-4) % Baso % (Auto) 0.6 (0-2) % Neut # (Auto) 5400 (4473-7967) /uL Lymph # (Auto) 1600 (3437-7494) /uL Bucks # (Auto) 500 (0-900) /uL Eos # (Auto) 300 (0-450) /uL Baso # (Auto) 100 (0-100) /uL Sodium 139 (137-145) mmol/L Potassium 3.7 (3.4-5.1) mmol/L Chloride 99 (98-107) mmol/L Carbon Dioxide 31 (22-32) mmol/L BUN 8 (7-17) mg/dL Creatinine 0.87 (0.52-1.04) mg/dL Estimated GFR > 60 (>60) mL/min BUN/Creatinine Ratio 9.2 (6-22) Glucose 103 H (70-100) mg/dL Calcium 9.2 (8.4-10.2) mg/dL Total Bilirubin 0.8 (0.2-1.3) mg/dL AST 40 H (14-36) IU/L ALT 23 (<35) IU/L Alkaline Phosphatase 108 (38-126) U/L Troponin I < 0.012 (0.01-0.034) ng/mL Total Protein 7.8 (6.3-8.2) g/dL Albumin 4.3 (3.5-5.0) g/dL Globulin 3.5 (1.7-4.1) g/dL Albumin/Globulin Ratio 1.2 (1.0-2.8) Salicylates < 1.0 (<20) mg/dL Acetaminophen < 10 (10-30) ug/mL Ethyl Alcohol < 10 ( - 10) mg/dL ECG Data Interpretation: Normal sinus rhythm at a rate of 89. Intervals are normal no acute ST segment changes [time] EKG is normal sinus rhythm rate [ ] and free of any signs of ischemia or ectopy. No ST segmental elevation or depression. No T wave inversions Naloxone at Discharge Meets criteria for naloxone at discharge?: No Discharge Plan Departure Patient Disposition: Home Clinical Impression: Accidental medication overdose Qualifiers: Encounter type: initial encounter Qualified Code(s): T50.901A - Poisoning by unspecified drugs, medicaments and biological substances, accidental (unintentional), initial encounter Activity Restrictions/Additional Instructions: You can resume your regular home medications this afternoon. Be careful when taking your medications to avoid mistakes like this in the future. Prescriptions: No Action doxycycline hyclate 100 mg capsule 100 mg PO BID Qty: 14 0RF fluticasone propionate [Flonase Allergy Relief] 50 mcg/actuation spray,suspension 1 spray intranasal Q12H Qty: 16 0RF Rx Instructions: administer into each nostril albuterol sulfate 2.5 mg /3 mL (0.083 %) solution for nebulization 2.5 mg INHALATION Q4-6H PRN (Reason: bronchospasm) Qty: 90 3RF duloxetine 60 mg capsule,delayed release(DR/EC) See Rx Instructions .ROUTE .COMPLEX Qty: 90 3RF Dose Instruction: TAKE 1 CAPSULE BY MOUTH ONCE DAILY Patient Comments: pt reports taking med at bedtime Rx Instructions: TAKE 1 CAPSULE BY MOUTH ONCE DAILY bupropion HCl 150 mg tablet extended release 24 hr See Rx Instructions .ROUTE .COMPLEX Qty: 90 3RF Dose Instruction: TAKE 1 TABLET (150 MG) ORALLY DAILY Rx Instructions: TAKE 1 TABLET (150 MG) ORALLY DAILY amitriptyline 150 mg tablet See Rx Instructions .ROUTE .COMPLEX Qty: 90 3RF Dose Instruction: TAKE 1 TABLET (150 MG) ORALLY DAILY AT BEDTIME Rx Instructions: TAKE 1 TABLET (150 MG) ORALLY DAILY AT BEDTIME oxycodone-acetaminophen 10-325 mg tablet See Rx Instructions .ROUTE .COMPLEX Qty: 120 0RF Hold Instructions: Unavailable Patient Comments: pt has pain contract with provider and reports taking med last 01/20 @2000 Rx Instructions: take one tablet by mouth every 6 hours PRN for pain EXEMPT tizanidine 4 mg tablet 4 mg PO 3XD PRN (Reason: for muscle spasm) Qty: 270 0RF albuterol sulfate [Ventolin HFA] 90 mcg/actuation HFA aerosol inhaler 2 puff INHALATION Q4HP PRN (Reason: shortness of breath or wheezing) Qty: 1 5RF quetiapine 25 mg tablet See Rx Instructions .ROUTE .COMPLEX Qty: 90 11RF Dose Instruction: TAKE 3 TABLETS BY MOUTH EVERY NIGHT AT BEDTIME. DUE FOR APPOINTMENT Rx Instructions: TAKE 3 TABLETS BY MOUTH EVERY NIGHT AT BEDTIME. DUE FOR APPOINTMENT pregabalin 200 mg capsule See Rx Instructions .ROUTE .COMPLEX Qty: 270 3RF Patient Comments: Last dose 01/20 @1400 Rx Instructions: Take 1 capsule by mouth 3 times daily oxycodone 5 mg tablet 10 mg PO Q4H PRN (Reason: pain) Qty: 240 0RF Rx Instructions: EXEMPT metoprolol tartrate 25 mg tablet 25 mg PO BID Qty: 180 1RF Patient Comments: pt reports taking med at bedtime terbinafine HCl 250 mg tablet 250 mg PO 3XW Qty: 36 3RF levothyroxine 150 mcg tablet 150 mcg PO DAILY Qty: 90 3RF clonidine HCl 0.1 mg tablet See Rx Instructions .ROUTE .COMPLEX Qty: 30 5RF Dose Instruction: TAKE 1/2 TABLET BY MOUTH TWICE DAILY Rx Instructions: TAKE 1/2 TABLET BY MOUTH TWICE DAILY lisinopril 10 mg tablet 10 mg PO DAILY Qty: 90 3RF cefpodoxime 200 mg tablet 200 mg PO Q12H Qty: 10 0RF Rx Instructions: must administer with a meal/food doxycycline hyclate 100 mg capsule 100 mg PO BID Qty: 10 0RF Referrals: Eduard Arreguin DO [Primary Care Provider] - Stand Alone Forms: Patient Portal/API
[2023-06-24 03:07] LABS: Troponin I < 0.012 ng/mL (0.01-0.034)
[2023-06-24] MEDS: lisinopriL 10 MG TABLET PO (06:30)
[2023-06-24] MEDS: METOPROLOL IR 25 MG TABLET PO (06:30)
== END 2023-06-24 07:04 | disposition home or self-care (01) ==
PROVIDERS: Emergency Provider Emergency Medicine; PCP Family Medicine
DX: T42.8X1A Poisoning by antiparkinsonism drugs and other central muscle-tone depressants, accidental (unintentional), initial encounter (principal); I10 Essential (primary) hypertension; F17.210 Nicotine dependence, cigarettes, uncomplicated
CPT/HCPCS: 36415; 80053; 80320; 80329; 84484; 85025; 93005; 99284; G0480

== ENCOUNTER 2023-08-20 13:03 | Inpatient (IN) | payer OTHER, MEDICAID, SELFPAY ==
[2022-09-17 09:40] VITALS: BMI 44.9
[2023-08-20] VITALS (8 sets, daily range): BP systolic 102–185; BP diastolic 62–129; PULSE 81–102; RESP 16–34; TEMP 36.6–36.7; O2SAT 84–100; BMI 44.9
--- NOTE | 2023-08-20 13:26 | ED.ASTHMA ---
HPI - Asthma <Marvel BritoISRRAEL alvarez - Last Filed: 08/20/23 17:04> General Chief Complaint: Asthma Stated Complaint: SOB-breathing issues HX asthma T-Hussein arriola Time Seen by Provider: 08/20/23 13:15 Source: patient Mode of arrival: Ambulatory History of Present Illness HPI Narrative: 42-year-old female, sometimes smoker with history of asthma and hypertension, presents to the emergency department with a 10 day history of increasing shortness of breath. Patient contacted her family doctor and was referred to the emergency department. Patient has a albuterol inhaler and nebulizer and has used it multiple times over the last 10 days without any significant improvement. Patient states that she used her albuterol nebulizer 4 times today and inhaler 10+ times. Patient has had to come into the emergency department in the past for asthma exacerbations, but does not look for to them, and therefore held off until directed by her family doctor. History of intubation secondary to exacerbation. Patient reports feeling poorly with episode of nausea and vomiting last evening. Related Data Previous Rx's Medication Instructions Recorded albuterol sulfate 2.5 mg/3 mL 2.5 mg (3 mL) inhalation Q4-6H PRN 11/01/20 (0.083 %) solution for nebulization bronchospasm #90 mL metoprolol tartrate 25 mg tablet 25 mg PO BID #180 tabs 08/12/22 terbinafine HCl 250 mg tablet 250 mg PO 3XW #36 tabs 08/12/22 bupropion HCl 150 mg 24 hr tablet, See Rx Instructions .Route 09/18/22 extended release .COMPLEX #90 tabs clonidine HCl 0.1 mg tablet See Rx Instructions .Route 10/16/22 .COMPLEX #30 tabs lisinopril 10 mg tablet 10 mg PO DAILY #90 tabs 10/16/22 fluticasone propionate 50 1 spray intranasal Q12H #16 grams 11/06/22 mcg/actuation nasal spray,suspension (Flonase Allergy Relief) levothyroxine 150 mcg tablet 150 mcg PO DAILY #90 tabs 02/13/23 cefpodoxime 200 mg tablet 200 mg PO Q12H #10 tabs 05/29/23 pregabalin 200 mg capsule See Rx Instructions .Route 06/03/23 .COMPLEX #270 caps quetiapine 25 mg tablet See Rx Instructions .Route 07/02/23 .COMPLEX #90 tabs amitriptyline 150 mg tablet See Rx Instructions .Route 07/23/23 .COMPLEX #90 tabs duloxetine 60 mg capsule,delayed 60 mg PO DAILY #90 caps 07/25/23 release tizanidine 4 mg tablet 1 mg (1/4 x 4 mg) PO 3XD PRN for 07/29/23 muscle spasm #270 tabs albuterol sulfate 90 mcg/actuation 2 puff inhalation Q4HP PRN 08/01/23 aerosol inhaler (Ventolin HFA) shortness of breath or wheezing #1 ea oxycodone 5 mg tablet 10 mg (2 x 5 mg) PO Q4H PRN pain 08/06/23 #240 tabs Allergies Allergy/AdvReac Type Severity Reaction Status Date / Time Penicillins [PENICILLINS] Allergy Mild Rash Verified 04/15/23 11:39 fluconazole [From DIFLUCAN] AdvReac Intermediate vomiting Verified 04/15/23 11:39 and abd pain codeine [CODEINE] AdvReac Mild NAUSEA Verified 04/15/23 11:39 Review of Systems <ISRRAEL Ortega - Last Filed: 08/20/23 17:04> Review of Systems Narrative: Narrative: See HPI. GENERAL: Denies chills, fatigue, fever, sweats. HEENT: Denies sinus pain, ear pain, sore throat, difficulty swallowing, dizziness. RESPIRATORY: Denies cough, sputum. Endorses shortness of breath and wheezing. CARDIOVASCULAR: Denies chest pain, palpitations, edema. GASTROINTESTINAL: Denies current nausea, vomiting, abdominal pain, diarrhea, constipation. : Denies dysuria, frequency, incontinence, hematuria, urinary retention, flank pain. MSK: Denies weakness, joint pain, or bony pain. SKIN: Denies rash, skin lesions, or pruritis. NEUROLOGIC: Denies weakness, dizziness, headache, numbness, confusion. PSYCHIATRIC: No concerning psychosocial issues. Patient History <ISRRAEL Ortega - Last Filed: 08/20/23 17:04> Medical History Hot flashes due to menopause Onychomycosis Chronic pain due to neoplasm Functional memory problem BMI 45.0-49.9, adult History of colon polyps Insomnia disorder, with non-sleep disorder mental comorbidity Bilateral chronic knee pain Acute pain of right knee UTI (urinary tract infection) Paget's disease of bone Obstructive sleep apnea on CPAP Lymphedema of arm Essential hypertension Major depressive disorder Abrasion, corneal Migraines Fibromyalgia (~05/2017) History of PCR DNA positive for HSV1 (~2014) Hypothyroidism (~2008) Rheumatoid arthritis Asthma Depression Irritable bowel syndrome Diverticular disease (~2015) Gestational diabetes mellitus (GDM) (10/27/14) Morbid obesity with body mass index (BMI) of 40.0 to 44.9 in adult (11/08/10) Surgical History Status post laparoscopy (01/19/16) Status post laparoscopic supracervical hysterectomy (10/23/15) Status post delivery (12/30/14) Status post tubal ligation (12/30/14) Status post surgery (07/07/12) Family History Grandmother Stroke Grandfather Heart disease Cancer Father Hypertension Mother Hypothyroidism (acquired) Social History marital status: household members: spouse and children lives independently: Yes Smoking Status: Current some day smoker alcohol intake: current substance use type: does not use Smoking Status: Current some day smoker tobacco type: cigarettes and vaping alcohol intake frequency: holidays/special occasions only Substance Use Type: marijuana Exam <ISRRAEL Ortega - Last Filed: 08/20/23 17:04> Narrative Exam Narrative: Exam Narrative: GENERAL: This is a well-nourished, well-developed patient, in no acute distress. HEAD: Atraumatic. Normocephalic. EYES: Pupils equal round and reactive. No scleral icterus, injection or drainage. ENT: Nose without bleeding, purulent drainage. Throat without erythema, tonsillar hypertrophy or exudate. Uvula midline. Airway patent. TMs and canals clear. No sinus tenderness. NECK: Trachea midline. No JVD or lymphadenopathy. Nontender. CARDIOVASCULAR: Regular rate and rhythm without murmurs, peripheral pulses intact, cap refill <2 sec. RESPIRATORY: Breath sounds with wheezing throughout. No witnessed cough. Positive increased respiratory effort. No accessory muscle use. MSK: Moves all extremities. Normal range of motion, no clubbing or edema. Neurovascularly intact. NEURO: A&O x 3. SKIN: Warm, dry, no rashes or lesions noted. Initial Vital Signs Initial Vital Signs: Vital Signs Temperature 98.1 F 08/20/23 13:20 Pulse Rate 90 08/20/23 13:20 Respiratory Rate 18 08/20/23 13:20 Blood Pressure 177/122 H 08/20/23 13:20 Pulse Oximetry 100 08/20/23 13:20 Oxygen Delivery Method Room Air 08/20/23 13:20 Reviewed. Patient is anxious due to difficulty breathing, coupled with not taking her blood pressure medication till evening, may be attributing to her elevated blood pressure reading. <Marvel Coy DO - Last Filed: 08/20/23 17:37> Initial Vital Signs Initial Vital Signs: Vital Signs Temperature 98.1 F 08/20/23 13:20 Pulse Rate 90 08/20/23 13:20 Respiratory Rate 18 08/20/23 13:20 Blood Pressure 177/122 H 08/20/23 13:20 Pulse Oximetry 100 08/20/23 13:20 Oxygen Delivery Method Room Air 08/20/23 13:20 Course <ISRRAEL Ortega - Last Filed: 08/20/23 17:04> Orders Ordered: ED Orders 08/20/23 14:28 Covid-19 + FLU A/B + RSV - PCR Stat 08/20/23 14:57 XR chest 1V Stat 08/20/23 16:25 CBC Auto Diff [Complete Blood Count AUTO DIFF] Stat CMP [Comprehensive Metabolic Panel] Stat PT [Prothrombin Time INR] Stat PTT Partial Thromboplastin [place] Stat Acetaminophen (Acetaminophen 325 Mg Tablet) 650 mg PO Q6H PRN PRN Reason: Fever/Mild Pain (1-3) Albuterol/Ipratropium (Albuterol/Ipratropium 3 Ml Ampul) 3 ml INH [id number] [place] Azithromycin (Azithromycin 250 Mg Tablet) 500 mg PO DAILY [facility] Stop: 08/22/23 09:01 Benzonatate (Benzonatate 100 Mg Capsule) 100 mg PO TID PRN PRN Reason: Cough Guaifenesin (Guaifenesin Er 600 Mg Tab) 600 mg PO BID [facility] Ceftriaxone Sodium 1,000 mg/ (Sodium Chloride) 100 mls @ 200 mls/hr IV Q24H [facility] Stop: 08/24/23 17:16 Melatonin (Melatonin 3 Mg Tablet) 6 mg PO BEDTIME PRN PRN Reason: Insomnia Naloxone HCl (Naloxone 0.4 Mg/Ml Vial) 0.2 mg IV Q2MIN PRN PRN Reason: Opiate Reversal Ondansetron HCl (Ondansetron 4 Mg/2 Ml Inj) 4 mg IV Q4HR PRN PRN Reason: Nausea And Vomiting Polyethylene Glycol (Polyethylene Glycol 3350 17 Gm Powd.Pack) 17 gm PO DAILY PRN PRN Reason: Constipation Prednisone (Prednisone 20 Mg Tablet) 40 mg PO DAILY [facility] Stop: 08/24/23 09:01 Sennosides (Sennosides 8.6 Mg Tablet) 8.6 mg PO BID PRN PRN Reason: Constipation Discontinued Medications Albuterol (Albuterol 2.5 Mg/3 Ml Neb (Adult)) 20 mg INH NOW ONE Stop: 08/20/23 13:42 Last Admin: 08/20/23 13:50 Dose: 20 mg Documented By: PALMER Albuterol/Ipratropium (Albuterol/Ipratropium 3 Ml Ampul) 3 ml INH NOW ONE Stop: 08/20/23 13:22 Last Admin: 08/20/23 13:28 Dose: 3 ml Documented By: PALMER Methylprednisolone (Methylprednisolone 125 Mg/2 Ml Vial) 125 mg IV NOW ONE Stop: 08/20/23 14:38 Last Admin: 08/20/23 14:48 Dose: Not Given Documented By: LUZMARIA Methylprednisolone (Methylprednisolone 125 Mg/2 Ml Vial) 125 mg IM NOW ONE Stop: 08/20/23 15:01 Last Admin: 08/20/23 14:52 Dose: 125 mg Documented By: LUZMARIA Prednisone (Prednisone 20 Mg Tablet) 40 mg PO NOW ONE Stop: 08/20/23 13:34 Last Admin: 08/20/23 13:44 Dose: 40 mg Documented By: RB Prednisone (Prednisone 20 Mg Tablet) 20 mg PO NOW ONE Stop: 08/20/23 13:42 Last Admin: 08/20/23 13:44 Dose: 20 mg Documented By: RB Consultations Consultation #1: Dr. Santiago, medicine. Will start IV and obtain baseline labs and contact him with the results. Plan is for thoracentesis this evening. Contacted Dr. Santiago with lab results and decision was made for admission and thoracentesis. Vital Signs Vital signs: Vital Signs - 8 hr 08/20/23 13:20 08/20/23 13:28 08/20/23 15:00 Temperature 98.1 F 98 F Pulse Rate 90 83 Respiratory Rate 18 19 Blood Pressure 177/122 H 185/129 H Pulse Oximetry 100 96 97 Oxygen Delivery Method Room Air Room Air Simple Mask 08/20/23 16:00 08/20/23 16:04 Temperature Pulse Rate 102 H 100 H Respiratory Rate 34 H Blood Pressure Pulse Oximetry 84 L 92 Oxygen Delivery Method Room Air Room Air <Marvel Coy, DO - Last Filed: 08/20/23 17:37> Orders Ordered: ED Orders 08/20/23 14:28 Covid-19 + FLU A/B + RSV - PCR Stat 08/20/23 14:57 XR chest 1V Stat 08/20/23 16:25 CBC Auto Diff [Complete Blood Count AUTO DIFF] Stat CMP [Comprehensive Metabolic Panel] Stat PT [Prothrombin Time INR] Stat PTT Partial Thromboplastin [place] Stat Acetaminophen (Acetaminophen 325 Mg Tablet) 650 mg PO Q6H PRN PRN Reason: Fever/Mild Pain (1-3) Albuterol/Ipratropium (Albuterol/Ipratropium 3 Ml Ampul) 3 ml INH [id number] [facility] Azithromycin (Azithromycin 250 Mg Tablet) 500 mg PO DAILY [facility] Stop: 08/22/23 09:01 Benzonatate (Benzonatate 100 Mg Capsule) 100 mg PO TID PRN PRN Reason: Cough Guaifenesin (Guaifenesin Er 600 Mg Tab) 600 mg PO BID [facility] Ceftriaxone Sodium 1,000 mg/ (Sodium Chloride) 100 mls @ 200 mls/hr IV Q24H [facility] Stop: 08/24/23 17:16 Melatonin (Melatonin 3 Mg Tablet) 6 mg PO BEDTIME PRN PRN Reason: Insomnia Naloxone HCl (Naloxone 0.4 Mg/Ml Vial) 0.2 mg IV Q2MIN PRN PRN Reason: Opiate Reversal Ondansetron HCl (Ondansetron 4 Mg/2 Ml Inj) 4 mg IV Q4HR PRN PRN Reason: Nausea And Vomiting Polyethylene Glycol (Polyethylene Glycol 3350 17 Gm Powd.Pack) 17 gm PO DAILY PRN PRN Reason: Constipation Prednisone (Prednisone 20 Mg Tablet) 40 mg PO DAILY [facility] Stop: 08/24/23 09:01 Sennosides (Sennosides 8.6 Mg Tablet) 8.6 mg PO BID PRN PRN Reason: Constipation Discontinued Medications Albuterol (Albuterol 2.5 Mg/3 Ml Neb (Adult)) 20 mg INH NOW ONE Stop: 08/20/23 13:42 Last Admin: 08/20/23 13:50 Dose: 20 mg Documented By: PALMER Albuterol/Ipratropium (Albuterol/Ipratropium 3 Ml Ampul) 3 ml INH NOW ONE Stop: 08/20/23 13:22 Last Admin: 08/20/23 13:28 Dose: 3 ml Documented By: PALMER Methylprednisolone (Methylprednisolone 125 Mg/2 Ml Vial) 125 mg IV NOW ONE Stop: 08/20/23 14:38 Last Admin: 08/20/23 14:48 Dose: Not Given Documented By: LUZMARIA Methylprednisolone (Methylprednisolone 125 Mg/2 Ml Vial) 125 mg IM NOW ONE Stop: 08/20/23 15:01 Last Admin: 08/20/23 14:52 Dose: 125 mg Documented By: LUZMARIA Prednisone (Prednisone 20 Mg Tablet) 40 mg PO NOW ONE Stop: 08/20/23 13:34 Last Admin: 08/20/23 13:44 Dose: 40 mg Documented By: RB Prednisone (Prednisone 20 Mg Tablet) 20 mg PO NOW ONE Stop: 08/20/23 13:42 Last Admin: 08/20/23 13:44 Dose: 20 mg Documented By: RB Vital Signs Vital signs: Vital Signs - 8 hr 08/20/23 13:20 08/20/23 13:28 08/20/23 15:00 Temperature 98.1 F 98 F Pulse Rate 90 83 Respiratory Rate 18 19 Blood Pressure 177/122 H 185/129 H Pulse Oximetry 100 96 97 Oxygen Delivery Method Room Air Room Air Simple Mask 08/20/23 16:00 08/20/23 16:04 Temperature Pulse Rate 102 H 100 H Respiratory Rate 34 H Blood Pressure Pulse Oximetry 84 L 92 Oxygen Delivery Method Room Air Room Air MDM - Asthma <ISRRAEL Ortega - Last Filed: 08/20/23 17:04> Differential Diagnosis Differential diagnosis: Likely Acute exacerbation, Status asthmaticus, Pneumonia and other (Pleural effusion) Lab Data 08/20/23 16:25 08/20/23 16:25 Labs: Lab Results 08/20/23 08/20/23 Range/Units 14:28 16:25 WBC 13.9 H (4.5-11.0) X10^3/uL RBC 5.10 (4.0-5.2) X10^6/uL Hgb 14.3 (12.0-16.0) g/dL Hct 43.7 (36-46) % MCV 85.6 (80-100) fL MCH 28.0 (26-34) PG MCHC 32.7 (30-36) % RDW 18.2 H (11.6-14.8) % Plt Count 219 (150-400) X10^3/uL Neut % (Auto) 90.8 H (50-75) % Lymph % (Auto) 5.5 L (25-40) % [place] % (Auto) 2.3 L (3-14) % Eos % (Auto) 0.9 L (2-4) % Baso % (Auto) 0.5 (0-2) % Neut # (Auto) 61735 H (4085-0474) /uL Lymph # (Auto) 800 L (0216-2451) /uL [place] # (Auto) 300 (0-900) /uL Eos # (Auto) 100 (0-450) /uL Baso # (Auto) 100 (0-100) /uL PT 12.0 (9.4-12.5) SECONDS INR 1.0 (0.9-1.3) APTT 39 H (25.1-36.5) SECONDS Sodium 137 (137-145) mmol/L Potassium 4.4 (3.4-5.1) mmol/L Chloride 104 (98-107) mmol/L Carbon Dioxide 27 (22-32) mmol/L BUN 9 (7-17) mg/dL Creatinine 0.65 (0.52-1.04) mg/dL Estimated GFR > 60 (>60) mL/min BUN/Creatinine Ratio 13.8 (6-22) Glucose 106 H (70-100) mg/dL Calcium 9.3 (8.4-10.2) mg/dL Magnesium 2.2 (1.6-2.3) mg/dL Total Bilirubin 0.8 (0.2-1.3) mg/dL AST 24 (14-36) IU/L ALT 16 (<35) IU/L Alkaline Phosphatase 110 (38-126) U/L Total Protein 8.0 (6.3-8.2) g/dL Albumin 4.6 (3.5-5.0) g/dL Globulin 3.4 (1.7-4.1) g/dL Albumin/Globulin Ratio 1.4 (1.0-2.8) SARS-CoV-2 (PCR) Negative (Negative) Influenza A (RT-PCR) Flu a negative (NEGATIVE) Influenza B (RT-PCR) Flu b negative (NEGATIVE) RSV (PCR) Negative (Negative) Imaging Data Chest x-ray: Radiologist's Impression: [address] [id number] XRay Report Signed Patient: Alina Pal MR#: [id number] : 1980 Acct:[id number] Age/Sex: 42 / F Date of Service: 08/20/23 Loc: ED Accession Number: [id number] Procedure: XR chest 1V Ordering Provider: Marvel Drake PROCEDURE: XR CHEST 1V INDICATIONS: Shortness of breath TECHNIQUE: One view of the chest was acquired. COMPARISON: Located Within [facility], , XR CHEST 1V, 05/29/2023, 16:39. FINDINGS: Surgical changes and devices: None. Lungs and pleura: Large left pleural effusion with subjacent opacity. No pneumothorax. Right lung is clear. Mediastinum: Mediastinal contours appear normal. Heart size is normal. Bones and chest wall: No suspicious bony lesions. Overlying soft tissues appear unremarkable. IMPRESSION: Large left pleural effusion with subjacent atelectasis. Approved by: Makayla Dahl M.D.,Ph.D. on 08/20/2023 at 15:33 MDM Narrative Medical decision making narrative: 42-year-old female with shortness of breath. Assessment was concerning due to the increase in difficulty breathing over such a long period of time. Respiratory therapy provided with DuoNeb x1 and then continuous albuterol neb. Viral panel was negative. Prednisone 60 mg given orally. After minimal improvement with the continuous neb, methylprednisone IV administered, after consultation with Dr. Coy. Chest x-ray ordered that revealed a large left pleural effusion with subsequent atelectasis. Correlation with CTA and chest x-ray in May 2023 reveals a increase in left pleural effusion. Discussed case with Dr. Santiago of medicine. Will obtain baseline labs, contact him with the results with the intention of a thoracentesis this evening. Lab results were not overly concerning and discussed with Dr. Santiago. Decision was made for admission and eventual thoracentesis. Discussed plan of care with patient, who verbalized understanding and was agreeable with course of action. <Marvel Anneliese, DO - Last Filed: 08/20/23 17:37> Lab Data Labs: Lab Results 08/20/23 08/20/23 Range/Units 14:28 16:25 WBC 13.9 H (4.5-11.0) X10^3/uL RBC 5.10 (4.0-5.2) X10^6/uL Hgb 14.3 (12.0-16.0) g/dL Hct 43.7 (36-46) % MCV 85.6 (80-100) fL MCH 28.0 (26-34) PG MCHC 32.7 (30-36) % RDW 18.2 H (11.6-14.8) % Plt Count 219 (150-400) X10^3/uL Neut % (Auto) 90.8 H (50-75) % Lymph % (Auto) 5.5 L (25-40) % [place] % (Auto) 2.3 L (3-14) % Eos % (Auto) 0.9 L (2-4) % Baso % (Auto) 0.5 (0-2) % Neut # (Auto) 68634 H (1994-3503) /uL Lymph # (Auto) 800 L (7589-8021) /uL [place] # (Auto) 300 (0-900) /uL Eos # (Auto) 100 (0-450) /uL Baso # (Auto) 100 (0-100) /uL PT 12.0 (9.4-12.5) SECONDS INR 1.0 (0.9-1.3) APTT 39 H (25.1-36.5) SECONDS Sodium 137 (137-145) mmol/L Potassium 4.4 (3.4-5.1) mmol/L Chloride 104 (98-107) mmol/L Carbon Dioxide 27 (22-32) mmol/L BUN 9 (7-17) mg/dL Creatinine 0.65 (0.52-1.04) mg/dL Estimated GFR > 60 (>60) mL/min BUN/Creatinine Ratio 13.8 (6-22) Glucose 106 H (70-100) mg/dL Calcium 9.3 (8.4-10.2) mg/dL Magnesium 2.2 (1.6-2.3) mg/dL Total Bilirubin 0.8 (0.2-1.3) mg/dL AST 24 (14-36) IU/L ALT 16 (<35) IU/L Alkaline Phosphatase 110 (38-126) U/L Total Protein 8.0 (6.3-8.2) g/dL Albumin 4.6 (3.5-5.0) g/dL Globulin 3.4 (1.7-4.1) g/dL Albumin/Globulin Ratio 1.4 (1.0-2.8) SARS-CoV-2 (PCR) Negative (Negative) Influenza A (RT-PCR) Flu a negative (NEGATIVE) Influenza B (RT-PCR) Flu b negative (NEGATIVE) RSV (PCR) Negative (Negative) Discharge Plan Departure Patient Disposition: Admitted As Inpatient Admit Date/Time: 08/20/23 17:10 Admit Provider: Bay Santiago ED Sign-out <Marvel Coy DO - Last Filed: 08/20/23 17:37> Cosign ED Attending Cosignature Attestation: Dr Coy Co-Sign Statement: I was available for consultation during this patient's emergency department visit. This chart is signed by myself for administrative purposes only. I did not have direct contact with this patient during this visit. They were seen independently by the [facility].
[2023-08-20] MEDS: ALBUTEROL/IPRATROPIUM 3 ML AMPUL INH ×2 (13:28→21:48)
--- NOTE | 2023-08-20 13:36 | PC.NURSE ---
This RN called respiratory therapist as I was performing triage assessment. RT JKing is assessing patients breathing and lungs concurrently with this steeping press tender. RTKing Performed eval and treat.
[2023-08-20] MEDS: predniSONE 20 MG TABLET 40 MG PO (13:44)
[2023-08-20] MEDS: predniSONE 20 MG TABLET PO (13:44)
[2023-08-20] MEDS: ALBUTEROL 2.5 MG/3 ML NEB (ADULT) 20 MG INH (13:50)
[2023-08-20] MEDS: methylPREDNISolone 125 MG/2 ML VIAL IM (14:52)
--- NOTE | 2023-08-20 14:57 | DI.RAD.S_ITS ---
PROCEDURE: XR CHEST 1V INDICATIONS: Shortness of breath TECHNIQUE: One view of the chest was acquired. COMPARISON: [facility], , XR CHEST 1V, 05/29/2023, 16:39. FINDINGS: Surgical changes and devices: None. Lungs and pleura: Large left pleural effusion with subjacent opacity. No pneumothorax. Right lung is clear. Mediastinum: Mediastinal contours appear normal. Heart size is normal. Bones and chest wall: No suspicious bony lesions. Overlying soft tissues appear unremarkable. IMPRESSION: Large left pleural effusion with subjacent atelectasis. Approved by: Makayla Dahl M.D.,Ph.D. on 08/20/2023 at 15:33
[2023-08-20 15:06] LABS: Influenza A - CEPHEID Flu A NEGATIVE (NEGATIVE); Influenza B - CEPHEID Flu B NEGATIVE (NEGATIVE); Respiratory Syncytial Virus Negative (Negative)
[2023-08-20 15:08] LABS: COVID-19 CEPHEID 4-PLEX PCR Negative (Negative)
--- NOTE | 2023-08-20 16:07 | PC.NURSE ---
This RN took this patient on a walk up and down the [place]. Patient pulse oxygenation dropped to 88% after 50 ft and was 84% upon returning to her room. Patient was able to raise pulse ox to 92% on room air after 1 minute of sitting. Patient increasing breath rate to 34 breaths per minute after 100 ft. Provider notified.
[2023-08-20 16:42] LABS: Add Manual Diff / Slide Review NO; Basophils Absolute Auto 100 /uL (0-100); Basophils Percent Auto 0.5 % (0-2); Eosinophils Absolute Auto 100 /uL (0-450); Eosinophils Percent Auto 0.9 % (2-4); Hematocrit 43.7 % (36-46); Hemoglobin 14.3 g/dL (12.0-16.0); Lymphocytes Absolute Auto 800 /uL (1100-4500); Lymphocytes Percent Auto 5.5 % (25-40); Mean Corpuscular HGB Conc 32.7 % (30-36); Mean Corpuscular Volume 85.6 fL (80-100); Monocytes Absolute Auto 300 /uL (0-900); Monocytes Percent Auto 2.3 % (3-14); Neutrophils Absolute Auto 12700 /uL (1500-7000); Neutrophils Percent Auto 90.8 % (50-75); Platelet Count 219 X10^3/uL (150-400); Red Cell Distribution Width 18.2 % (11.6-14.8); White Blood Cell Count 13.9 X10^3/uL (4.5-11.0)
[2023-08-20 16:46] LABS: PTT Partial Thromboplastin Tim 39 SECONDS (25.1-36.5)
[2023-08-20 16:51] LABS: Alanine Aminotransferase 16 IU/L (<35); Albumin 4.6 g/dL (3.5-5.0); Albumin Globulin Ratio 1.4 (1.0-2.8); Alkaline Phosphatase 110 U/L (38-126); Aspartate Aminotransferase 24 IU/L (14-36); BUN Creatinine Ratio 13.8 (6-22); Bilirubin Total 0.8 mg/dL (0.2-1.3); Blood Urea Nitrogen 9 mg/dL (7-17); Calcium 9.3 mg/dL (8.4-10.2); Carbon Dioxide 27 mmol/L (22-32); Chloride 104 mmol/L (98-107); Estimated Glomerular Filt Rate > 60 mL/min (>60); Globulin 3.4 g/dL (1.7-4.1); Glucose 106 mg/dL (70-100); Sodium 137 mmol/L (137-145)
[2023-08-20 16:54] LABS: HEMOLYSIS 51 (0-50)
[2023-08-20 16:55] LABS: Potassium 4.4 mmol/L (3.4-5.1)
[2023-08-20 17:33] LABS: Magnesium 2.2 mg/dL (1.6-2.3)
--- NOTE | 2023-08-20 17:51 | ED_ITS ---
HPI - Asthma General Chief Complaint: Asthma Stated Complaint: SOB-breathing issues HX asthma T-10 Time Seen by Provider: 08/20/23 13:15 Source: patient Mode of arrival: Ambulatory Related Data Previous Rx's Medication Instructions Recorded albuterol sulfate 2.5 mg/3 mL 2.5 mg (3 mL) inhalation Q4-6H PRN 11/01/20 (0.083 %) solution for nebulization bronchospasm #90 mL metoprolol tartrate 25 mg tablet 25 mg PO BID #180 tabs 08/12/22 bupropion HCl 150 mg 24 hr tablet, See Rx Instructions .Route 09/18/22 extended release .COMPLEX #90 tabs fluticasone propionate 50 1 spray intranasal Q12H #16 grams 11/06/22 mcg/actuation nasal spray,suspension (Flonase Allergy Relief) levothyroxine 150 mcg tablet 150 mcg PO DAILY #90 tabs 02/13/23 pregabalin 200 mg capsule See Rx Instructions .Route 06/03/23 .COMPLEX #270 caps quetiapine 25 mg tablet See Rx Instructions .Route 07/02/23 .COMPLEX #90 tabs amitriptyline 150 mg tablet See Rx Instructions .Route 07/23/23 .COMPLEX #90 tabs duloxetine 60 mg capsule,delayed 60 mg PO DAILY #90 caps 07/25/23 release tizanidine 4 mg tablet 1 mg (1/4 x 4 mg) PO 3XD PRN for 07/29/23 muscle spasm #270 tabs albuterol sulfate 90 mcg/actuation 2 puff inhalation Q4HP PRN 08/01/23 aerosol inhaler (Ventolin HFA) shortness of breath or wheezing #1 ea oxycodone 5 mg tablet 10 mg (2 x 5 mg) PO Q4H PRN pain 08/06/23 #240 tabs Allergies Allergy/AdvReac Type Severity Reaction Status Date / Time Penicillins [PENICILLINS] Allergy Mild Rash Verified 04/15/23 11:39 fluconazole [From DIFLUCAN] AdvReac Intermediate vomiting Verified 04/15/23 11:39 and abd pain codeine [CODEINE] AdvReac Mild NAUSEA Verified 04/15/23 11:39 Patient History Medical History Hot flashes due to menopause Onychomycosis Chronic pain due to neoplasm Functional memory problem BMI 45.0-49.9, adult History of colon polyps Insomnia disorder, with non-sleep disorder mental comorbidity Bilateral chronic knee pain Acute pain of right knee UTI (urinary tract infection) Paget's disease of bone Obstructive sleep apnea on CPAP Lymphedema of arm Essential hypertension Major depressive disorder Abrasion, corneal Migraines Fibromyalgia (~05/2017) History of PCR DNA positive for HSV1 (~2014) Hypothyroidism (~2008) Rheumatoid arthritis Asthma Depression Irritable bowel syndrome Diverticular disease (~2015) Gestational diabetes mellitus (GDM) (10/27/14) Morbid obesity with body mass index (BMI) of 40.0 to 44.9 in adult (11/08/10) Surgical History Status post laparoscopy (01/19/16) Status post laparoscopic supracervical hysterectomy (10/23/15) Status post delivery (12/30/14) Status post tubal ligation (12/30/14) Status post surgery (07/07/12) Family History Grandmother Stroke Grandfather Heart disease Cancer Father Hypertension Mother Hypothyroidism (acquired) Social History marital status: household members: spouse and children lives independently: Yes Smoking Status: Current some day smoker alcohol intake: current substance use type: does not use Smoking Status: Current some day smoker tobacco type: cigarettes and vaping alcohol intake frequency: holidays/special occasions only Substance Use Type: marijuana Exam Initial Vital Signs Initial Vital Signs: Vital Signs Temperature 98.1 F 08/20/23 13:20 Pulse Rate 90 08/20/23 13:20 Respiratory Rate 18 08/20/23 13:20 Blood Pressure 177/122 H 08/20/23 13:20 Pulse Oximetry 100 08/20/23 13:20 Oxygen Delivery Method Room Air 08/20/23 13:20 Course Orders Ordered: Acetaminophen (Acetaminophen 325 Mg Tablet) 650 mg PO Q6H PRN PRN Reason: Fever/Mild Pain (1-3) Last Admin: 08/20/23 21:36 Dose: 650 mg Documented By: SH Albuterol (Albuterol 2.5 Mg/3 Ml Neb (Adult)) 2.5 mg INH [id number] PRN PRN Reason: Shortness Of Breath Or Wheezing Albuterol/Ipratropium (Albuterol/Ipratropium 3 Ml Ampul) 3 ml INH [id number] [facility] Last Admin: 08/21/23 10:57 Dose: 3 ml Documented By: Admin: 08/21/23 08:20 Dose: Not Given Documented By: Admin: 08/20/23 21:48 Dose: 3 ml Documented By: Amitriptyline HCl (Amitriptyline 25 Mg Tablet) 150 mg PO BEDTIME [facility] Last Admin: 08/20/23 21:36 Dose: 150 mg Documented By: ELHAM Azithromycin (Azithromycin 250 Mg Tablet) 500 mg PO DAILY [facility] Stop: 08/22/23 09:01 Last Admin: 08/21/23 08:24 Dose: 500 mg Documented By: Admin: 08/20/23 17:57 Dose: 500 mg Documented By: GEORGE Benzonatate (Benzonatate 100 Mg Capsule) 100 mg PO TID PRN PRN Reason: Cough Bupropion HCl (Bupropion Xl 150 Mg Tab) 150 mg PO BEDTIME [facility] Last Admin: 08/20/23 21:37 Dose: 150 mg Documented By: ELHAM Duloxetine HCl (Duloxetine 30 Mg Capsule) 60 mg PO BEDTIME [facility] Last Admin: 08/20/23 21:37 Dose: 60 mg Documented By: ELHAM Guaifenesin (Guaifenesin Er 600 Mg Tab) 600 mg PO BID [facility] Last Admin: 08/21/23 08:26 Dose: 600 mg Documented By: Admin: 08/20/23 21:37 Dose: 600 mg Documented By: ELHAM Ceftriaxone Sodium 1,000 mg/ (Sodium Chloride) 100 mls @ 200 mls/hr IV Q24H [facility] Stop: 08/24/23 18:44 Last Admin: 08/20/23 18:07 Dose: 200 mls/hr Documented By: GEORGE Levothyroxine Sodium (Levothyroxine 50 Mcg Tablet) 150 mcg PO 0600 [facility] Last Admin: 08/21/23 05:15 Dose: 150 mcg Documented By: ELHAM Lorazepam (Lorazepam 0.5 Mg Tablet) 0.5 mg PO PRN PRN PRN Reason: thora Last Admin: 08/21/23 09:07 Dose: 0.5 mg Documented By: Admin: 08/20/23 18:13 Dose: 0.5 mg Documented By: GEORGE Melatonin (Melatonin 3 Mg Tablet) 6 mg PO BEDTIME PRN PRN Reason: Insomnia Last Admin: 08/20/23 21:36 Dose: 6 mg Documented By: ELHAM Naloxone HCl (Naloxone 0.4 Mg/Ml Vial) 0.2 mg IV Q2MIN PRN PRN Reason: Opiate Reversal Ondansetron HCl (Ondansetron 4 Mg/2 Ml Inj) 4 mg IV Q4HR PRN PRN Reason: Nausea And Vomiting Oxycodone HCl (Oxycodone Ir 5 Mg Tablet) 10 mg PO Q6H PRN PRN Reason: Pain, Severe (7-10) Last Admin: 08/21/23 08:25 Dose: 10 mg Documented By: DELROY Polyethylene Glycol (Polyethylene Glycol 3350 17 Gm Powd.Pack) 17 gm PO DAILY PRN PRN Reason: Constipation Prednisone (Prednisone 20 Mg Tablet) 40 mg PO DAILY [facility] Stop: 08/24/23 09:01 Last Admin: 08/21/23 08:24 Dose: 40 mg Documented By: DELROY Pregabalin (Pregabalin 50 Mg Capsule) 200 mg PO TID [facility] Last Admin: 08/21/23 08:24 Dose: 200 mg Documented By: Admin: 08/20/23 21:38 Dose: 200 mg Documented By: ELHAM Quetiapine Fumarate (Quetiapine 25 Mg Tablet) 75 mg PO BEDTIME [facility] Last Admin: 08/20/23 21:36 Dose: 75 mg Documented By: ELHAM Sennosides (Sennosides 8.6 Mg Tablet) 8.6 mg PO BID PRN PRN Reason: Constipation Discontinued Medications Albuterol (Albuterol 2.5 Mg/3 Ml Neb (Adult)) 20 mg INH NOW ONE Stop: 08/20/23 13:42 Last Admin: 08/20/23 13:50 Dose: 20 mg Documented By: PALMER Albuterol (Albuterol 2.5 Mg/3 Ml Neb (Adult)) 2.5 mg INH [id number] [facility] Last Admin: 08/21/23 07:29 Dose: Not Given Documented By: DELROY Albuterol/Ipratropium (Albuterol/Ipratropium 3 Ml Ampul) 3 ml INH NOW ONE Stop: 08/20/23 13:22 Last Admin: 08/20/23 13:28 Dose: 3 ml Documented By: PALMER Hydromorphone HCl (Hydromorphone 0.5 Mg Inj) 1 mg IV NOW ONE Stop: 08/21/23 10:34 Last Admin: 08/21/23 10:45 Dose: 1 mg Documented By: DELROY Hydromorphone HCl (Hydromorphone 1 Mg Inj) 1 mg IV NOW ONE Stop: 08/21/23 10:46 Last Admin: 08/21/23 10:46 Dose: Not Given Documented By: DELROY Ceftriaxone Sodium 1,000 mg/ (Sodium Chloride) 100 mls @ 200 mls/hr IV Q24H [facility] Stop: 08/24/23 17:16 Last Admin: 08/20/23 18:18 Dose: Not Given Documented By: DELROY Methylprednisolone (Methylprednisolone 125 Mg/2 Ml Vial) 125 mg IV NOW ONE Stop: 08/20/23 14:38 Last Admin: 08/20/23 14:48 Dose: Not Given Documented By: LUZMARIA Methylprednisolone (Methylprednisolone 125 Mg/2 Ml Vial) 125 mg IM NOW ONE Stop: 08/20/23 15:01 Last Admin: 08/20/23 14:52 Dose: 125 mg Documented By: LUZMARIA Oxycodone HCl (Oxycodone Ir 5 Mg Tablet) 10 mg PO Q24H PRN PRN Reason: Pain, Severe (7-10) Last Admin: 08/20/23 22:45 Dose: 10 mg Documented By: ELHAM Prednisone (Prednisone 20 Mg Tablet) 40 mg PO NOW ONE Stop: 08/20/23 13:34 Last Admin: 08/20/23 13:44 Dose: 40 mg Documented By: RB Prednisone (Prednisone 20 Mg Tablet) 20 mg PO NOW ONE Stop: 08/20/23 13:42 Last Admin: 08/20/23 13:44 Dose: 20 mg Documented By: RB Vital Signs Vital signs: Vital Signs - 8 hr 08/20/23 13:20 08/20/23 13:28 08/20/23 15:00 Temperature 98.1 F 98 F Pulse Rate 90 83 Respiratory Rate 18 19 Blood Pressure 177/122 H 185/129 H Pulse Oximetry 100 96 97 Oxygen Delivery Method Room Air Room Air Simple Mask 08/20/23 16:00 08/20/23 16:04 Temperature Pulse Rate 102 H 100 H Respiratory Rate 34 H Blood Pressure Pulse Oximetry 84 L 92 Oxygen Delivery Method Room Air Room Air MDM - Asthma Lab Data 08/21/23 06:05 08/21/23 06:05 Labs: Lab Results 08/20/23 08/20/23 Range/Units 14:28 16:25 WBC 13.9 H (4.5-11.0) X10^3/uL RBC 5.10 (4.0-5.2) X10^6/uL Hgb 14.3 (12.0-16.0) g/dL Hct 43.7 (36-46) % MCV 85.6 (80-100) fL MCH 28.0 (26-34) PG MCHC 32.7 (30-36) % RDW 18.2 H (11.6-14.8) % Plt Count 219 (150-400) X10^3/uL Neut % (Auto) 90.8 H (50-75) % Lymph % (Auto) 5.5 L (25-40) % [place] % (Auto) 2.3 L (3-14) % Eos % (Auto) 0.9 L (2-4) % Baso % (Auto) 0.5 (0-2) % Neut # (Auto) 17415 H (2034-5441) /uL Lymph # (Auto) 800 L (6578-1716) /uL [place] # (Auto) 300 (0-900) /uL Eos # (Auto) 100 (0-450) /uL Baso # (Auto) 100 (0-100) /uL PT 12.0 (9.4-12.5) SECONDS INR 1.0 (0.9-1.3) APTT 39 H (25.1-36.5) SECONDS Sodium 137 (137-145) mmol/L Potassium 4.4 (3.4-5.1) mmol/L Chloride 104 (98-107) mmol/L Carbon Dioxide 27 (22-32) mmol/L BUN 9 (7-17) mg/dL Creatinine 0.65 (0.52-1.04) mg/dL Estimated GFR > 60 (>60) mL/min BUN/Creatinine Ratio 13.8 (6-22) Glucose 106 H (70-100) mg/dL Calcium 9.3 (8.4-10.2) mg/dL Magnesium 2.2 (1.6-2.3) mg/dL Total Bilirubin 0.8 (0.2-1.3) mg/dL AST 24 (14-36) IU/L ALT 16 (<35) IU/L Alkaline Phosphatase 110 (38-126) U/L Total Protein 8.0 (6.3-8.2) g/dL Albumin 4.6 (3.5-5.0) g/dL Globulin 3.4 (1.7-4.1) g/dL Albumin/Globulin Ratio 1.4 (1.0-2.8) SARS-CoV-2 (PCR) Negative (Negative) Influenza A (RT-PCR) Flu a negative (NEGATIVE) Influenza B (RT-PCR) Flu b negative (NEGATIVE) RSV (PCR) Negative (Negative) Discharge Plan Departure Patient Disposition: Admitted As Inpatient Clinical Impression: Pleural effusion Admit Date/Time: 08/20/23 17:10 Admit Provider: Bay Santiago
[2023-08-20] MEDS: AZITHROMYCIN 250 MG TABLET 500 MG PO (17:57)
[2023-08-20] MEDS: cefTRIAXone 1,000 MG in SODIUM CHLORIDE 0.9% 100 ML 200 MG IV (18:07)
[2023-08-20] MEDS: LORazepam 0.5 MG TABLET PO (18:13)
--- NOTE | 2023-08-20 18:20 | P.HP_ITS ---
History of Present Illness <Eusebia Mota - Last Filed: 08/20/23 18:41> History of Present Illness Chief complaint: SOB-breathing issues HX asthma T-10 drdandre Narrative: Alina Pal is a 42 YO F with a PMH of asthma, HTN, hypothyroidism, and anxiety. She is presenting today with a CC of SOB for the last 10 days. Her dyspnea has progressively worsened over the last few days with albuterol and nebulizers not providing any significant relief. She has been feeling ill for the last 10 days with intermittent episodes of nausea, vomiting, and dizziness. She reports having PNA at least once a year, with no precipitating cause. She has been hospitalized for asthma exacerbations in the past, some of which were followed with intubation. <Bay Santiago DO - Last Filed: 08/20/23 19:27> History of Present Illness Date Patient Seen: 08/20/23 Narrative: Alina Pal is a 42 YO F with a PMH of asthma, HTN, hypothyroidism, and anxiety. She is presenting today with a CC of SOB for the last 10 days. Her dyspnea has progressively worsened over the last few days with albuterol and nebulizers not providing any significant relief. She has been feeling ill for the last 10 days with intermittent episodes of nausea, vomiting, and dizziness. She reports having PNA at least once a year, with no precipitating cause. She has been hospitalized for asthma exacerbations in the past, some of which were followed with intubation. Once in the ED found to have O2 sats down to 84% with ambulation. CXR showed large L pleural effusion. [facility] <Eusebia Nicoleafsaneh - Last Filed: 08/20/23 18:41> Medical History Hot flashes due to menopause Onychomycosis Chronic pain due to neoplasm Functional memory problem BMI 45.0-49.9, adult History of colon polyps Insomnia disorder, with non-sleep disorder mental comorbidity Bilateral chronic knee pain Acute pain of right knee UTI (urinary tract infection) Paget's disease of bone Obstructive sleep apnea on CPAP Lymphedema of arm Essential hypertension Major depressive disorder Abrasion, corneal Migraines Fibromyalgia (~05/2017) History of PCR DNA positive for HSV1 (~2014) Hypothyroidism (~2008) Rheumatoid arthritis Asthma Depression Irritable bowel syndrome Diverticular disease (~2016) Gestational diabetes mellitus (GDM) (10/27/14) Morbid obesity with body mass index (BMI) of 40.0 to 44.9 in adult (11/08/10) Surgical History Status post laparoscopy (01/19/16) Status post laparoscopic supracervical hysterectomy (10/23/15) Status post delivery (12/30/14) Status post tubal ligation (12/30/14) Status post surgery (07/07/12) Family History Grandmother Stroke Grandfather Heart disease Cancer Father Hypertension Mother Hypothyroidism (acquired) Social History marital status: household members: spouse and children lives independently: Yes Smoking Status: Current some day smoker alcohol intake: current substance use type: does not use Meds <Eusebia Mota - Last Filed: 08/20/23 18:41> Home Medications and Allergies Home Medications Medication Instructions Recorded Confirmed Type albuterol sulfate 2.5 mg/3 mL 2.5 mg (3 mL) inhalation Q4-6H PRN 11/01/20 08/20/23 Rx (0.083 %) solution for nebulization bronchospasm #90 mL metoprolol tartrate 25 mg tablet 25 mg PO BID #180 tabs 08/12/22 08/20/23 Rx bupropion HCl 150 mg 24 hr tablet, See Rx Instructions .Route 09/18/22 08/20/23 Rx extended release .COMPLEX #90 tabs fluticasone propionate 50 1 spray intranasal Q12H #16 grams 11/06/22 08/20/23 Rx mcg/actuation nasal spray,suspension (Flonase Allergy Relief) levothyroxine 150 mcg tablet 150 mcg PO DAILY #90 tabs 02/13/23 08/20/23 Rx pregabalin 200 mg capsule See Rx Instructions .Route 06/03/23 08/20/23 Rx .COMPLEX #270 caps quetiapine 25 mg tablet See Rx Instructions .Route 07/02/23 08/20/23 Rx .COMPLEX #90 tabs amitriptyline 150 mg tablet See Rx Instructions .Route 07/23/23 08/20/23 Rx .COMPLEX #90 tabs duloxetine 60 mg capsule,delayed 60 mg PO DAILY #90 caps 07/25/23 08/20/23 Rx release tizanidine 4 mg tablet 1 mg (1/4 x 4 mg) PO 3XD PRN for 07/29/23 08/20/23 Rx muscle spasm #270 tabs albuterol sulfate 90 mcg/actuation 2 puff inhalation Q4HP PRN 08/01/23 08/20/23 Rx aerosol inhaler (Ventolin HFA) shortness of breath or wheezing #1 ea oxycodone 5 mg tablet 10 mg (2 x 5 mg) PO Q4H PRN pain 08/06/23 08/20/23 Rx #240 tabs Allergies Allergy/AdvReac Type Severity Reaction Status Date / Time Penicillins [PENICILLINS] Allergy Mild Rash Verified 04/15/23 11:39 fluconazole [From DIFLUCAN] AdvReac Intermediate vomiting Verified 04/15/23 11:39 and abd pain codeine [CODEINE] AdvReac Mild NAUSEA Verified 04/15/23 11:39 Review of Systems <abdoulaye [facility] Last Filed: 08/20/23 18:41> Review of Systems Narrative: Gen: + fatigue, fever and chills HEENT: + Headache Resp: + dyspnea, wheezing CV: +orthopnea GI: +vomiting and nausea NEURO: +dizzy Exam <[facility] Last Filed: 08/20/23 18:41> Vital Signs (past 8 hours): - 08/20/23 13:20 08/20/23 13:28 08/20/23 15:00 Temperature 98.1 F 98 F Pulse Rate 90 83 Respiratory Rate 18 19 Blood Pressure 177/122 H 185/129 H Blood Pressure [Left Arm] Pulse Oximetry 100 96 97 Oxygen Delivery Method Room Air Room Air Simple Mask 08/20/23 16:00 08/20/23 16:04 08/20/23 17:33 Temperature Pulse Rate 102 H 100 H 89 Respiratory Rate 34 H 20 Blood Pressure Blood Pressure [Left Arm] 105/62 Pulse Oximetry 84 L 92 95 Oxygen Delivery Method Room Air Room Air Room Air 08/20/23 17:46 Temperature Pulse Rate 81 Respiratory Rate 16 Blood Pressure 102/63 Blood Pressure [Left Arm] Pulse Oximetry 95 Oxygen Delivery Method Room Air Oxygen Delivery Method Room Air Narrative Exam Narrative: Gen: NAD, sitting uncomfortably upright in a tripod position Resp: labored breathing with diffuse wheezing b/l, there is dullness to percussion at the LLL CV: Normal rate and rhythm Abd: Soft and non-distended, no pain upon palpation to all 4 quadrants Objective <abdoulaye [facility] - Last Filed: 08/20/23 18:41> Labs 08/20/23 16:25 08/20/23 16:25 Labs: Laboratory Results - last 24 hr 08/20/23 08/20/23 14:28 16:25 WBC 13.9 H RBC 5.10 Hgb 14.3 Hct 43.7 MCV 85.6 MCH 28.0 MCHC 32.7 RDW 18.2 H Plt Count 219 Neut % (Auto) 90.8 H Lymph % (Auto) 5.5 L [place] % (Auto) 2.3 L Eos % (Auto) 0.9 L Baso % (Auto) 0.5 Neut # (Auto) 65053 H Lymph # (Auto) 800 L [place] # (Auto) 300 Eos # (Auto) 100 Baso # (Auto) 100 PT 12.0 INR 1.0 APTT 39 H Sodium 137 Potassium 4.4 Chloride 104 Carbon Dioxide 27 BUN 9 Creatinine 0.65 Estimated GFR > 60 BUN/Creatinine Ratio 13.8 Glucose 106 H Calcium 9.3 Magnesium 2.2 Total Bilirubin 0.8 AST 24 ALT 16 Alkaline Phosphatase 110 Total Protein 8.0 Albumin 4.6 Globulin 3.4 Albumin/Globulin Ratio 1.4 SARS-CoV-2 (PCR) Negative Influenza A (RT-PCR) Flu a negative Influenza B (RT-PCR) Flu b negative RSV (PCR) Negative Assessment & Plan <abdoulaye [facility] - Last Filed: 08/20/23 18:41> Assessment & Plan narrative: #Pleural effusion - due to potential undiagnosed CHF - Chest Xray shows a left pleural effusion - diagnostic and therapeutic throcentesis performed - obtain echo to r/o CHF #Asthma - continue albuterol PRN #HTN - continue metoprolol - continue lisinopril #Hypothyroidism - continue levothyroxine # Anxiety - continue duloxetine - continue buproprion <Bay Santiago DO - Last Filed: 08/20/23 19:27> Assessment & Plan narrative: # hypoxic resp failure -required O2 with ambulation as sats went to 84% -likely due to large pleural effusion as below -abx, steroids and thora to be attempted #L sided pleural effusion - unclear etiology, WBC elevated so will give abx for possible PNA - Chest Xray shows a left pleural effusion - diagnostic and therapeutic throcentesis to be attempted at bedside - obtain echo to r/o CHF # Asthma - duonebs PRN #HTN - continue metoprolol - continue lisinopril #Hypothyroidism - continue levothyroxine # Anxiety - continue duloxetine - continue buproprion Code status is full code. DVT prophylaxis with SCDs. Proxy is Brady. I have reviewed home meds and used all available resources to reconcile the home meds. Case discussed with ED physician/APC and patient will be admitted to the hospitalist service for further workup and management. This patient will be admitted as observation and will require less than 2 midnights of hospital time to treat hypoxia.
--- NOTE | 2023-08-20 18:34 | PC.NURSE ---
Day shift: Pt in room from ED at approx 1745. A&Ox4. In good spirits and able to ambulate short distances without any SOB. BP elevated and MD aware. Oriented to room and call light. Denies any pain. RA 92%. Dr Santiago plans to perform thoracentisis at 1830. IV antibiotics infusing. Has dinner meal in room and will plan to eat post-procedure. Report from ED RN is desats on room air to mid 80's. Left lung sounds dim to no sounds.
--- NOTE | 2023-08-20 19:19 | DI.RAD.S_ITS ---
PROCEDURE: XR CHEST 1V INDICATIONS: s/p thora attempt, aborted due to unable to get fluid TECHNIQUE: One view of the chest was acquired. COMPARISON: [facility], CR, XR CHEST 1V, 08/20/2023, 15:04. FINDINGS: Surgical changes and devices: None. Lungs and pleura: Mild diffuse interstitial prominence. Unchanged appearance of moderate-large sized left pleural effusion. Associated compressive atelectasis. No definite pneumothorax seen. Mediastinum: Mediastinal contours appear normal. Heart size is normal. Bones and chest wall: No suspicious bony lesions. Overlying soft tissues appear unremarkable. IMPRESSION: Stable examination of the chest with persistent moderate-large left pleural effusion. No pneumothorax visualized. Dictated by: Lul Bruno M.D. on 08/20/2023 at 20:51 Approved by: Lul Bruno M.D. on 08/20/2023 at 20:52
--- NOTE | 2023-08-20 19:20 | DI.US.S_ITS ---
PROCEDURE: US THORACENTESIS INDICATIONS: large L pleural effusion, unsuccessful attempt at bedside TECHNIQUE: The indications, alternatives, benefits, risks, and complications of the procedure were explained to the patient. Written informed consent was obtained and placed in the chart. The chest was examined sonographically, and an appropriate site was chosen for thoracentesis. The skin was prepared and draped in the usual sterile fashion, and 1% lidocaine was infiltrated from the skin down through the pleural surface. A 19-gauge catheter-covered needle was then introduced into the pleural space, the catheter was advanced and the needle was withdrawn, and thereafter pleural fluid was aspirated. The catheter was then removed and a dressing was applied. COMPARISON: [facility], CT, CT ANGIO CHEST PE PROTOCOL, 05/29/2023, 19:39. [facility], CR, XR CHEST 1V, 08/20/2023, 19:37. [facility], CR, XR CHEST 1V, 08/21/2023, 10:56. FINDINGS: Access site: Left hemithorax. Needle: One-Step centesis catheter with introducer needle. Fluid volume and description: 1800 cc, clear straw-colored Fluid sent for diagnostic testing: Multiple labs ordered. Medications: 1% lidocaine for local anaesthesia. Complications: None; post-procedural chest radiograph is negative pneumothorax. IMPRESSION: Successful ultrasound-guided left thoracentesis. Dictated by: Ede Paulson M.D. on 08/21/2023 at 12:42 Approved by: Ede Paulson M.D. on 08/21/2023 at 12:45
--- NOTE | 2023-08-20 19:20 | DI.ECHO.S_ITS ---
[facility] : : [address] : : [place] : : [address] : : Phone: [phone] Echocardiogram Report + + :Name: TWIN INMAN Study Date: 08/21/2023 Height: 60 in : :[facility] ReadingLocation: Weight: 230 lb : : Gender: Female BSA: 2.0 m2 : :: 1980 Age: 42 yrs BP: 148/80 mmHg: :Reason For Study: LARGE PLEURAL EFFUSION, R/O CONGESTIVE HEART : :FAILURE : :Ordering Physician: ALEX, : :JULIA Arias Performed By: Nancy Mullins : :Referring: JULIA JOHNSON : + + Interpretation Summary The ejection fraction is estimated to be 60-65%. There is no significant valvular heart disease. Procedure: A two-dimensional transthoracic echocardiogram with color flow and Doppler was performed. The study quality was technically adequate. Comparison is made with the echocardiogram of 02/28/2020. The patient was in sinus rhythm with heart rates between 80-85 bpm during the exam. Left Ventricle: The left ventricle is normal in size. There is mild concentric left ventricular hypertrophy. The ejection fraction is estimated to be 60-65%. Left ventricular wall motion is normal. Diastolic parameters suggest probable normal left ventricular diastolic function and normal filling pressures. Right Ventricle: The right ventricle is normal in size and function. Atria: The left atrium is mildly dilated. Right atrial size is normal. There is no Doppler evidence for an interatrial shunt. Mitral Valve: The mitral valve leaflets appear mildly thickened, but open well. There is trace mitral regurgitation. Aortic Valve: The aortic valve is grossly normal. The aortic valve opens well. There is no aortic valve stenosis. No aortic regurgitation is present. Tricuspid Valve: The tricuspid valve is normal in structure and function. There is trace tricuspid regurgitation. Pulmonic Valve: The pulmonic valve leaflets are thin and pliable; valve motion is normal. There is no pulmonic valvular regurgitation. Great Vessels: The aortic root is normal size. The dimensions of the ascending aorta are normal. The IVC is of normal diameter and collapses greater than 50% with a sniff. This suggests a low right atrial pressure of 3 mm Hg. Pericardium/ Pleura There is no pericardial effusion. There is a large left- sided pleural effusion. MMode/2D Measurements & Calculations LVIDd: 4.8 cm LVOT diam: 2.2 cm LVIDs: 3.0 cm Ao root diam: 3.0 cm FS: 37.0 % asc Aorta Diam: 3.6 cm IVSd: 1.1 cm LVPWd: 1.1 cm LV eugene. diameter/BSA (cm/m^2): 2.4 LV sys. diameter/BSA (cm/m^2): 1.5 LA A2 area: 21.8 cm2 RA long axis: 4.9 cm LA A4 area: 23.3 cm2 RA area: 16.9 cm2 LA length (vol): 5.7 cm RA vol: 49.4 ml LA vol: 75.3 ml RA : 24.9 ml/m2 LA vol index: 38.0 ml/m2 IVC diam: 2.0 cm RVD1 (basal): 3.3 cm TAPSE: 2.8 cm Doppler Measurements & Calculations Ao V2 max: 145.3 cm/sec LVOT Max Luis: 109.7 cm/sec Ao V2 mean: 99.0 cm/sec LV V1 max P.8 mmHg Ao max P.4 mmHg LV V1 VTI: 23.1 cm Ao mean P.4 mmHg MELCHOR(I,D): 2.9 cm2 Ao V2 VTI: 31.1 cm MELCHOR(V,D): 3.0 cm2 sev ratio: 0.74 MELCHOR indexed to BSA (cm^2/m^2): 1.5 MV E max luis: 101.6 cm/sec PA V2 max: 106.8 cm/sec MV A max luis: 98.3 cm/sec PA V2 mean: 79.8 cm/sec MV E/A: 1.0 PA mean P.7 mmHg Med Peak E' Luis: 8.3 cm/sec PA pr(Accel): 44.7 mmHg E/E' med: 12.2 Lat Peak E' Luis: 8.5 cm/sec E/E' lat: 12.0 E/e' average: 12.1 MV dec time: 0.20 sec MVA(VTI): 3.4 cm2 MV V2 mean: 82.2 cm/sec SV(LVOT): 90.5 ml MV mean P.0 mmHg MV V2 VTI: 27.0 cm Reading Physician:10:33 AM
--- NOTE | 2023-08-20 19:21 | PATH_ITS ---
Note [facility] Accession Number: [id number] TESTS RESULT FLAG UNITS REF RANGE LAB Clinician Provided Cytology Information No. of containers..01 Other (Miscellaneous) Source: PLEURAL FLUID DIAGNOSIS: PLEURAL FLUID, THORACENTESIS. NEGATIVE FOR MALIGNANT CELLS. REACTIVE MESOTHELIAL CELLS ARE PRESENT. THIS INTERPRETATION INCLUDES EVALUATION OF A CELL BLOCK. Pathologist ICD10: 01 J91.8 Signed out by: Elvira Lopez MD, Pathologist NPI- [id number] Performed by: Anthony Crum, Covered Buckle Assembler ([facility]) Gross description: 15 CC, YELLOW, HAZY RECEIVED: FRESH IN ORANGE CAP CONTAINER.VO /VDU 08/22/2023 0702 Local FLAG LEGEND: L-Low Normal,H-High Normal,LL-Alert Low,HH-Alert High <-Panic Low,>-Panic High,A-Abnormal,AA-Critical Abnormal Performed at: 01 =Z [facility] Cyt[facility] [address], [place] [address] Amish Morton MD, Performed at: [facility] [address], [place], [place] [id number] MD Amish Morton MD Phone: [phone]
--- NOTE | 2023-08-20 19:22 | PM.PROC.1 ---
Procedures Date/Time Date of procedure: 08/20/23 Time of procedure: 19:22 General Procedure description: Thoracentesis Procedure Note Prior to the procedure formal consent was obtained from the patient after discussion of risks and benefits of the procedure, and allowing the patient to ask any questions. Ultrasound was used to find safe entry site, and the site was marked. A time-out was performed. The site was then prepped and draped in usual sterile fashion, and a 16 gauge needle was inserted without return of fluid. Needle didn't appear to be long enough to penetrate pleural space. Procedure aborted and CXR ordered. Bay Santiago DO
[2023-08-20] MEDS: MELATONIN 3 MG TABLET 6 MG PO (21:36)
[2023-08-20] MEDS: ACETAMINOPHEN 325 MG TABLET 650 MG PO (21:36)
[2023-08-20] MEDS: QUETIAPINE 25 MG TABLET 75 MG PO (21:36)
[2023-08-20] MEDS: AMITRIPTYLINE 25 MG TABLET 150 MG PO (21:36)
[2023-08-20] MEDS: DULOXETINE 30 MG CAPSULE 60 MG PO (21:37)
[2023-08-20] MEDS: guaiFENesin ER 600 MG TAB PO (21:37)
[2023-08-20] MEDS: buPROPion XL 150 MG TAB PO (21:37)
[2023-08-20] MEDS: PREGABALIN 50 MG CAPSULE 200 MG PO (21:38)
[2023-08-20] MEDS: OXYCODONE IR 5 MG TABLET 10 MG PO (22:45)
[2023-08-21] VITALS (7 sets, daily range): BP systolic 128–167; BP diastolic 70–95; PULSE 80–96; RESP 16–20; TEMP 35.7–36.4; O2SAT 90–95
--- NOTE | 2023-08-21 | DI.RAD.S_ITS ---
PROCEDURE: XR CHEST 1V INDICATIONS: POST THORA TECHNIQUE: One view of the chest was acquired. COMPARISON: [facility], CR, XR CHEST 1V, 08/20/2023, 19:37. FINDINGS: Surgical changes and devices: None. Lungs and pleura: Mild left effusion decreased compared to prior exam. No pneumothorax. Mediastinum: Mediastinal contours appear normal. Heart size is normal. Bones and chest wall: No suspicious bony lesions. Overlying soft tissues appear unremarkable. IMPRESSION: Decreased left pleural effusion status post thoracentesis without pneumothorax. Dictated by: Nancy Khan M.D. on 08/21/2023 at 11:17 Approved by: Nancy Khan M.D. on 08/21/2023 at 11:19
[2023-08-21] MEDS: LEVOTHYROXINE 50 MCG TABLET 150 MCG PO (05:15)
[2023-08-21 06:40] LABS: Add Manual Diff / Slide Review NO; Basophils Absolute Auto 100 /uL (0-100); Basophils Percent Auto 0.3 % (0-2); Eosinophils Absolute Auto 0 /uL (0-450); Hematocrit 41.4 % (36-46); Hemoglobin 13.6 g/dL (12.0-16.0); Lymphocytes Absolute Auto 500 /uL (1100-4500); Lymphocytes Percent Auto 3.1 % (25-40); Mean Corpuscular Hemoglobin 27.9 PG (26-34); Mean Corpuscular Volume 84.7 fL (80-100); Monocytes Absolute Auto 200 /uL (0-900); Monocytes Percent Auto 1.6 % (3-14); Neutrophils Absolute Auto 14500 /uL (1500-7000); Platelet Count 243 X10^3/uL (150-400); Red Blood Cell Count 4.89 X10^6/uL (4.0-5.2); Red Cell Distribution Width 18.3 % (11.6-14.8); White Blood Cell Count 15.3 X10^3/uL (4.5-11.0)
[2023-08-21 07:22] LABS: BUN Creatinine Ratio 21.5 (6-22); Blood Urea Nitrogen 14 mg/dL (7-17); Calcium 9.3 mg/dL (8.4-10.2); Carbon Dioxide 28 mmol/L (22-32); Chloride 105 mmol/L (98-107); Estimated Glomerular Filt Rate > 60 mL/min (>60); Glucose 134 mg/dL (70-100); HEMOLYSIS < 15 (0-50); Lactate Dehydrogenase 207 U/L (120-246); Potassium 4.3 mmol/L (3.4-5.1); Sodium 136 mmol/L (137-145)
[2023-08-21] MEDS: predniSONE 20 MG TABLET 40 MG PO (08:24)
[2023-08-21] MEDS: PREGABALIN 50 MG CAPSULE 200 MG PO ×3 (08:24→20:33)
[2023-08-21] MEDS: AZITHROMYCIN 250 MG TABLET 500 MG PO (08:24)
[2023-08-21] MEDS: OXYCODONE IR 5 MG TABLET 10 MG PO ×3 (08:25→22:58)
[2023-08-21] MEDS: guaiFENesin ER 600 MG TAB PO ×2 (08:26→20:33)
[2023-08-21] MEDS: LORazepam 0.5 MG TABLET PO (09:07)
[2023-08-21] MEDS: HYDROMORPHONE 0.5 MG INJ 1 MG IV (10:45)
[2023-08-21] MEDS: ALBUTEROL/IPRATROPIUM 3 ML AMPUL INH ×2 (10:57→19:46)
[2023-08-21 11:02] LABS: Body Fluid Tot Nucleated Cells 440 /uL
[2023-08-21 11:04] LABS: Body Fluid Appearance CLEAR; Body Fluid Clotted? NO CLOTS PRESENT; Body Fluid Color YELLOW
--- NOTE | 2023-08-21 11:05 | RT ---
continue current therapies. Pt states she hasnt used Cpap in a long time, no distress noted
[2023-08-21 11:21] LABS: Mononuclear WBC Body Fluid 80 %; Polynuclear WBC Body Fluid 20 %
--- NOTE | 2023-08-21 13:43 | CM.DANOTE ---
Initial DCP Assessment Visit Note Reviewed EMR and team rounds for pt's medical status and updates. Met with pt/spouse at bedside to introduce self and role, pt was preparing for a procedure and was not able to meet but only briefly. Pt and her spouse reside independently in their own home in [place]. Her spouse will also plan to transport her home once she's medically cleared for d/c. Payor: [employer] PCP: Dr. Arreguin Pt is a 42 year-old F who presented to the ED last evening with c/o 10-days of worsening shortness of breath, as well as some nausea/vomiting. In the ED she was found to be hypoxic, received DuoNeb and alburerol nebs. Chest x-ray showed a large pleural effusion, the plan was made to admit her and perform a thoracentesis later last evening. That was unsuccessful, so she will be scheduled with IR to do the thoracentesis later this afternoon. Per Hospitalist, she will either discharge home after this procedure today or remain one more night for further breathing treatments. No home d/c needs are anticipated at this time. DCP will continue to follow and assist with any further evolving needs during her admission. Discharge Planning/Care Management CM Discharge Assessment Start: 08/21/23 13:41 Freq: Status: Active Protocol: Document 08/21/23 13:41 DPL (Rec: 08/21/23 13:43 DPL [id number]) Discharge Planning Assessment Assigned University Professor JOSÉ Jackson Advance Directives? No Advance Directives on File No History Provided By Patient,Medical Record Has Patient been admitted in last 30 No days? Household Members spouse,children Type of transporation used prior to Drives own vehicle admit Independent with ADL's Yes Is patient alert and oriented? Yes Caregiver for Another Yes: children DME Already Rented / Owned Nebulizer Comment No identified d/c needs at this time. Barriers to Discharge No Discharge Plan Home Transportation Arrangement Spouse Referrals Initiated None needed Whiteboard Updated in Patient Room with Yes name and ext. # of University Professor Review Status In Process Please Provide Date Initial DC 08/21/23 Assessment Was Performed
--- NOTE | 2023-08-21 15:30 | PM.PN.1 ---
Subjective Subjective Interval history: 42 F admitted with hypoxic respriatory failure and large pleural effusion. Had 1800 cc removed, fluid studies pending. Still complains of pleuritic chest pain on the Left and shortness of breath. She remains hypoxic, requiring 3-4 liters of oxygen to maintain O2 sats above 90% during my evaluation. Exam Vital Signs (past 8 hours): - 08/21/23 08:40 08/21/23 08:45 08/21/23 10:57 Temperature 97.1 F L Pulse Rate 87 96 H Respiratory Rate 20 20 Blood Pressure 167/95 H Pulse Oximetry 92 94 Oxygen Delivery Method Nasal Cannula Simple Mask Nasal Cannula Oxygen Flow Rate 2 3 08/21/23 14:00 Temperature 97.6 F Pulse Rate 93 H Respiratory Rate 16 Blood Pressure 135/80 Pulse Oximetry 95 Oxygen Delivery Method Oxygen Flow Rate 4 Oxygen Delivery Method Nasal Cannula Oxygen Flow Rate 4 Narrative Exam Narrative: Gen: NAD, sitting uncomfortably upright in a tripod position Resp: equal chest rise non labored breathing CV: Normal rate and rhythm Abd: Soft and non-distended, no pain upon palpation to all 4 quadrants Objective Labs 08/21/23 06:05 08/21/23 06:05 Labs: Laboratory Results - last 24 hr 08/20/23 08/21/23 08/21/23 16:25 06:05 10:35 WBC 13.9 H 15.3 H RBC 5.10 4.89 Hgb 14.3 13.6 Hct 43.7 41.4 MCV 85.6 84.7 MCH 28.0 27.9 MCHC 32.7 33.0 RDW 18.2 H 18.3 H Plt Count 219 243 Neut % (Auto) 90.8 H 95.0 H Lymph % (Auto) 5.5 L 3.1 L [place] % (Auto) 2.3 L 1.6 L Eos % (Auto) 0.9 L 0.0 L Baso % (Auto) 0.5 0.3 Neut # (Auto) 26526 H 09316 H Lymph # (Auto) 800 L 500 L [place] # (Auto) 300 200 Eos # (Auto) 100 0 Baso # (Auto) 100 100 PT 12.0 INR 1.0 APTT 39 H Sodium 137 136 L Potassium 4.4 4.3 Chloride 104 105 Carbon Dioxide 27 28 BUN 9 14 Creatinine 0.65 0.65 Estimated GFR > 60 > 60 BUN/Creatinine Ratio 13.8 21.5 Glucose 106 H 134 H Calcium 9.3 9.3 Magnesium 2.2 Total Bilirubin 0.8 AST 24 ALT 16 Alkaline Phosphatase 110 Lactate Dehydrogenase 207 Total Protein 8.0 Albumin 4.6 Globulin 3.4 Albumin/Globulin Ratio 1.4 Fluid Color Yellow Fluid Appearance Clear Fluid RBC [id number] Fld Tot Nucleated Cell 440 Fluid Polynuclear WBCs 20 Fluid Mononuclear WBCs 80 Fluid Eosinophils Not Reportable Fluid Other Cells Not Reportable Body Fluid Clot No clots present [facility] Medical History Hot flashes due to menopause Onychomycosis Chronic pain due to neoplasm Functional memory problem BMI 45.0-49.9, adult History of colon polyps Insomnia disorder, with non-sleep disorder mental comorbidity Bilateral chronic knee pain Acute pain of right knee UTI (urinary tract infection) Paget's disease of bone Obstructive sleep apnea on CPAP Lymphedema of arm Essential hypertension Major depressive disorder Abrasion, corneal Migraines Fibromyalgia (~05/2017) History of PCR DNA positive for HSV1 (~2014) Hypothyroidism (~2008) Rheumatoid arthritis Asthma Depression Irritable bowel syndrome Diverticular disease (~2015) Gestational diabetes mellitus (GDM) (10/27/14) Morbid obesity with body mass index (BMI) of 40.0 to 44.9 in adult (11/08/10) Surgical History Status post laparoscopy (01/19/16) Status post laparoscopic supracervical hysterectomy (10/23/15) Status post delivery (12/30/14) Status post tubal ligation (12/30/14) Status post surgery (07/07/12) Family History Grandmother Stroke Grandfather Heart disease Cancer Father Hypertension Mother Hypothyroidism (acquired) Social History marital status: household members: spouse and children lives independently: Yes Smoking Status: Current some day smoker alcohol intake: current substance use type: does not use Assessment & Plan Assessment & Plan narrative: # acute hypoxic resp failure, present on admission -required O2 with ambulation as sats went to 84% -likely due to large pleural effusion as below -abx, steroids and thora to be attempted #L sided pleural effusion - unclear etiology, WBC elevated. Continue antibiotics for bacterial pnuemonia. - Chest Xray shows a left pleural effusion. It was present to a much smaller extent on imaging 3 months ago. - diagnostic and therapeutic throcentesis to be attempted at bedside, 1800 cc removed today, still hypoxic. But patient still with pleuritic chest pain. - echocardiogram was unremarkable without evidence of cardiac etiology. - possible parapneumonic effusion after COVID and/or bacterial pneumonia. # Asthma with exacerbation - duonebs PRN - continue prednisone. #HTN - continue metoprolol - continue lisinopril #Hypothyroidism - continue levothyroxine # Anxiety - continue duloxetine - continue buproprion Code status is full code. DVT prophylaxis with SCDs. Proxy is Brady. I have reviewed home meds and used all available resources to reconcile the home meds. Case discussed with case management. Change to inpatient with continued hypoxia.
[2023-08-21] MEDS: LIDOCAINE 5% PATCH 1 EACH TOP (15:45)
[2023-08-21] MEDS: cefTRIAXone 1,000 MG in SODIUM CHLORIDE 0.9% 100 ML 200 MG IV (18:39)
[2023-08-21] MEDS: METOPROLOL IR 25 MG TABLET PO (20:33)
[2023-08-21] MEDS: QUETIAPINE 25 MG TABLET 75 MG PO (20:33)
[2023-08-21] MEDS: DULOXETINE 30 MG CAPSULE 60 MG PO (20:33)
[2023-08-21] MEDS: buPROPion XL 150 MG TAB PO (20:33)
[2023-08-21] MEDS: AMITRIPTYLINE 25 MG TABLET 150 MG PO (20:33)
[2023-08-21] MEDS: MELATONIN 3 MG TABLET 6 MG PO (20:37)
[2023-08-21] MEDS: BACLOFEN 10 MG TABLET PO (22:56)
[2023-08-22 02:00] VITALS: BP 144/95; PULSE 70; RESP 18; TEMP 35.6; O2SAT 94
[2023-08-22] MEDS: LEVOTHYROXINE 50 MCG TABLET 150 MCG PO (05:15)
[2023-08-22 05:41] LABS: Add Manual Diff / Slide Review NO; Basophils Absolute Auto 100 /uL (0-100); Basophils Percent Auto 0.6 % (0-2); Eosinophils Absolute Auto 0 /uL (0-450); Eosinophils Percent Auto 0.1 % (2-4); Hemoglobin 13.4 g/dL (12.0-16.0); Lymphocytes Absolute Auto 1600 /uL (1100-4500); Mean Corpuscular HGB Conc 31.9 % (30-36); Mean Corpuscular Hemoglobin 27.7 PG (26-34); Mean Corpuscular Volume 86.7 fL (80-100); Monocytes Absolute Auto 1000 /uL (0-900); Monocytes Percent Auto 6.5 % (3-14); Neutrophils Absolute Auto 12900 /uL (1500-7000); Neutrophils Percent Auto 82.8 % (50-75); Platelet Count 208 X10^3/uL (150-400); Red Blood Cell Count 4.85 X10^6/uL (4.0-5.2); Red Cell Distribution Width 18.5 % (11.6-14.8); White Blood Cell Count 15.6 X10^3/uL (4.5-11.0)
[2023-08-22 06:13] LABS: BUN Creatinine Ratio 31.6 (6-22); Blood Urea Nitrogen 24 mg/dL (7-17); Calcium 9.4 mg/dL (8.4-10.2); Carbon Dioxide 29 mmol/L (22-32); Chloride 106 mmol/L (98-107); Estimated Glomerular Filt Rate > 60 mL/min (>60); Glucose 93 mg/dL (70-100); HEMOLYSIS < 15 (0-50); Potassium 4.5 mmol/L (3.4-5.1); Sodium 138 mmol/L (137-145)
[2023-08-22 08:00] VITALS: BP 177/112; PULSE 73; RESP 16; TEMP 36.6; O2SAT 93
[2023-08-22] MEDS: LIDOCAINE 5% PATCH 1 EACH TOP (08:54)
[2023-08-22] MEDS: AZITHROMYCIN 250 MG TABLET 500 MG PO (08:55)
[2023-08-22] MEDS: predniSONE 20 MG TABLET 40 MG PO (08:55)
[2023-08-22] MEDS: guaiFENesin ER 600 MG TAB PO (08:55)
[2023-08-22] MEDS: OXYCODONE IR 5 MG TABLET 10 MG PO (08:56)
[2023-08-22] MEDS: PREGABALIN 50 MG CAPSULE 200 MG PO (08:56)
[2023-08-22 09:02] VITALS: PULSE 74; RESP 18; O2SAT 94
[2023-08-22] MEDS: ALBUTEROL/IPRATROPIUM 3 ML AMPUL INH (09:06)
[2023-08-22] MEDS: METOPROLOL IR 25 MG TABLET PO (09:21)
--- NOTE | 2023-08-22 09:27 | P.DS_ITS ---
History of Present Illness History of Present Illness Date Patient Seen: 08/22/23 Time Patient Seen: 09:28 Chief complaint: SOB-breathing issues HX asthma T-10 drSonamref Narrative: Per admitting provider, Alina Pal is a 42 YO F with a PMH of asthma, HTN, hypothyroidism, and anxiety. She is presenting today with a CC of SOB for the last 10 days. Her dyspnea has progressively worsened over the last few days with albuterol and nebulizers not providing any significant relief. She has been feeling ill for the last 10 days with intermittent episodes of nausea, vomiting, and dizziness. She reports having PNA at least once a year, with no precipitating cause. She has been hospitalized for asthma exacerbations in the past, some of which were followed with intubation. Once in the ED found to have O2 sats down to 84% with ambulation. CXR showed large L pleural effusion. Discharge Providers Provider Date of admission: 08/21/23 14:14 Discharge Date: 08/22/23 Primary care physician: Eduard Arreguin DO Discharge provider: Eric Juarez DO Summary Hospital Course Discharge Diagnosis: # acute hypoxic resp failure, present on admission #L sided pleural effusion, parapneumonic with L pneumonia. # Asthma with exacerbation #HTN #Hypothyroidism # Anxiety Hospital Course: 42 year old female with PMH of asthma, HTN, hypothyroid, anxiety who was admitted for acute hypoxic respiratory secondary to asthma exacerbation and left sided pleural effusion. Her pleural effusion was moderate - large sized on imaging, though in review of past records was also present back in May but much smaller. She was given antibiotics with ceftriaxone and azithromycin, along with prednisone for treament of possible pneumonia and asthma exacerbation. Thoracentesis was performed with removal of 1800 cc of yellow, straw colored fluid. Initial cell counts and cultures have been unremarkable. Pending at the time of discharge are bacterial studies by PCR and cytology and LDH of her pleural fluid. I suspect the most likely etiology for her effusion to be parapneumonic in origin, possibly due to viral or bacterial infection. The day after fluid removal, the patient was no longer requiring supplemental oxygen and was discharged home on continued antiboitic therapy and steroids. Recommend PCP follow up in 1-2 weeks to review any ongoing symptoms, consider inhaler changes / treatment changes for her asthma, and review pending thoracentesis studies noted above. I would also recommend repeat chest xray in a few months to make sure no recurrence of fluid. Time Spent with Patient Time spent: Greater than 30 minutes Exam Vital Signs (past 8 hours): - 08/22/23 02:00 08/22/23 08:00 08/22/23 09:02 Temperature 96.1 F L 97.8 F Pulse Rate 70 73 74 Respiratory Rate 18 16 18 Blood Pressure 144/95 H 177/112 H Pulse Oximetry 94 93 94 Oxygen Delivery Method Room Air Oxygen Flow Rate 2.5 2.5 Oxygen Delivery Method Room Air Oxygen Flow Rate 2.5 Narrative Exam Narrative: Gen: NAD, sitting uncomfortably upright in a tripod position Resp: equal chest rise non labored breathing CV: Normal rate and rhythm Abd: Soft and non-distended, no pain upon palpation to all 4 quadrants Objective Labs 08/22/23 05:22 08/22/23 05:22 Labs: Laboratory Results - last 24 hr 08/21/23 08/22/23 10:35 05:22 WBC 15.6 H RBC 4.85 Hgb 13.4 Hct 42.0 MCV 86.7 MCH 27.7 MCHC 31.9 RDW 18.5 H Plt Count 208 Neut % (Auto) 82.8 H Lymph % (Auto) 10.0 L [place] % (Auto) 6.5 Eos % (Auto) 0.1 L Baso % (Auto) 0.6 Neut # (Auto) 32988 H Lymph # (Auto) 1600 [place] # (Auto) 1000 H Eos # (Auto) 0 Baso # (Auto) 100 Sodium 138 Potassium 4.5 Chloride 106 Carbon Dioxide 29 BUN 24 H Creatinine 0.76 Estimated GFR > 60 BUN/Creatinine Ratio 31.6 H Glucose 93 Calcium 9.4 Fluid Color Yellow Fluid Appearance Clear Fluid RBC [id number] Fld Tot Nucleated Cell 440 Fluid Polynuclear WBCs 20 Fluid Mononuclear WBCs 80 Fluid Eosinophils Not Reportable Fluid Other Cells Not Reportable Body Fluid Clot No clots present [facility] Medical History Hot flashes due to menopause Onychomycosis Chronic pain due to neoplasm Functional memory problem BMI 45.0-49.9, adult History of colon polyps Insomnia disorder, with non-sleep disorder mental comorbidity Bilateral chronic knee pain Acute pain of right knee UTI (urinary tract infection) Paget's disease of bone Obstructive sleep apnea on CPAP Lymphedema of arm Essential hypertension Major depressive disorder Abrasion, corneal Migraines Fibromyalgia (~05/2017) History of PCR DNA positive for HSV1 (~2014) Hypothyroidism (~2008) Rheumatoid arthritis Asthma Depression Irritable bowel syndrome Diverticular disease (~2015) Gestational diabetes mellitus (GDM) (10/27/14) Morbid obesity with body mass index (BMI) of 40.0 to 44.9 in adult (11/08/10) Surgical History Status post laparoscopy (01/19/16) Status post laparoscopic supracervical hysterectomy (10/23/15) Status post delivery (12/30/14) Status post tubal ligation (12/30/14) Status post surgery (07/07/12) Family History Grandmother Stroke Grandfather Heart disease Cancer Father Hypertension Mother Hypothyroidism (acquired) Social History marital status: household members: spouse and children lives independently: Yes Smoking Status: Current some day smoker alcohol intake: current substance use type: does not use Discharge Plan Discharge Plan Patient Disposition: Home Provider Discharge Comment: You were admitted to the hospital with shortness of breath and low oxygen. This improved with steroids, antibiotics and removal of some fluid around your lung. It is unclear what the fluid is coming from still, but I suspect something called a parapneumonic effusion. Continue antibiotics and steroids at home. Your nebulizers do appear to already have refills prescribed so you can request them from your pharmacy. Discharge orders & Medications Prescriptions: New cefdinir 300 mg capsule 300 mg PO BID 5 Days Qty: 10 0RF azithromycin 250 mg tablet 250 mg PO DAILY 2 Days Qty: 2 0RF prednisone 20 mg tablet 40 mg PO DAILY 3 Days Qty: 6 0RF Continued fluticasone propionate [Flonase Allergy Relief] 50 mcg/actuation spray,suspension 1 spray intranasal Q12H Qty: 16 0RF Rx Instructions: administer into each nostril albuterol sulfate 2.5 mg /3 mL (0.083 %) solution for nebulization 2.5 mg INHALATION Q4-6H PRN (Reason: bronchospasm) Qty: 90 3RF bupropion HCl 150 mg tablet extended release 24 hr See Rx Instructions .ROUTE .COMPLEX Qty: 90 3RF Dose Instruction: TAKE 1 TABLET (150 MG) ORALLY DAILY Rx Instructions: TAKE 1 TABLET (150 MG) ORALLY DAILY pregabalin 200 mg capsule See Rx Instructions .ROUTE .COMPLEX Qty: 270 3RF Patient Comments: Last dose 01/20 @1400 Rx Instructions: Take 1 capsule by mouth 3 times daily quetiapine 25 mg tablet See Rx Instructions .ROUTE .COMPLEX Qty: 90 11RF Dose Instruction: TAKE 3 TABLETS BY MOUTH EVERY NIGHT AT BEDTIME. DUE FOR APPOINTMENT Rx Instructions: TAKE 3 TABLETS BY MOUTH EVERY NIGHT AT BEDTIME. DUE FOR APPOINTMENT amitriptyline 150 mg tablet See Rx Instructions .ROUTE .COMPLEX Qty: 90 1RF Dose Instruction: TAKE 1 TABLET (150 MG) ORALLY DAILY AT BEDTIME Rx Instructions: TAKE 1 TABLET (150 MG) ORALLY DAILY AT BEDTIME duloxetine 60 mg capsule,delayed release(DR/EC) 60 mg PO DAILY Qty: 90 0RF tizanidine 4 mg tablet 1 mg PO 3XD PRN (Reason: for muscle spasm) Qty: 270 1RF albuterol sulfate [Ventolin HFA] 90 mcg/actuation HFA aerosol inhaler 2 puff INHALATION Q4HP PRN (Reason: shortness of breath or wheezing) Qty: 1 5RF oxycodone 5 mg tablet 10 mg PO Q4H PRN (Reason: pain) Qty: 240 0RF Rx Instructions: EXEMPT metoprolol tartrate 25 mg tablet 25 mg PO BID Qty: 180 1RF Patient Comments: pt reports taking med at bedtime levothyroxine 150 mcg tablet 150 mcg PO DAILY Qty: 90 3RF Follow up/Referrals: Eduard Arreguin DO [Primary Care Provider] - 1 Week Diet/Activity/Treatments Diet: Diet as Tolerated and Regular Activity: As tolerated, no restrictions Visit Report/Discharge Packet Stand Alone Forms: Patient Portal/API, Stroke Signs & Symptoms Discharge Data Primary Care Provider: Eduard Arreguin
--- NOTE | 2023-08-22 10:10 | CM.DPC ---
DCP Cont. Reviewed EMR and team rounds for pt's status updates. Per RN, pt is doing much better today, is medically cleared for d/c home. Spouse will transport, no further DCP needs indicated at this time.
--- NOTE | 2023-08-22 11:57 | PC.NURSE ---
Pt denies discomfort this morning. BS slightly deminished, SpO2 96% 2L Orders for D/C received. SL D/C'd intact, Home instructions given w/understanding Pt escorted by staff via W/C to her car. Pt had Dr. Juarez approval to drive herself. States she is casey going 5 blocks. D/C in stable condition.
== END 2023-08-22 11:55 | disposition home or self-care (01) | DRG 139 ==
LOC: ED 16:49 → AC 17:03
PROVIDERS: Admitting Provider Student in an Organized Health Care Education/Training Program; Emergency Provider Registered Nurse; PCP Family Medicine; Referring Provider Registered Nurse; Visit Provider Student in an Organized Health Care Education/Training Program
DX: J18.9 Pneumonia, unspecified organism (principal); J96.01 Acute respiratory failure with hypoxia; I10 Essential (primary) hypertension; E03.9 Hypothyroidism, unspecified; F41.9 Anxiety disorder, unspecified; J45.901 Unspecified asthma with (acute) exacerbation; J91.8 Pleural effusion in other conditions classified elsewhere; F17.210 Nicotine dependence, cigarettes, uncomplicated
CPT/HCPCS: 0241U; 32555; 36415; 71045; 80048; 80053; 83615; 83735; 85025; 85610; 85730; 87070; 87075; 87205; 87801; 89051; 93306; 94150; 94640; 94762; 96372; 99284; G0378; J0696; J1170; J2919; J7613

== ENCOUNTER 2023-09-01 17:44 | Observation (INO) | payer OTHER, MEDICAID, SELFPAY ==
[2023-08-20 18:42] VITALS: BMI 44.9
[2023-09-01] VITALS (28 sets, daily range): BP systolic 152–184; BP diastolic 86–130; PULSE 77–88; RESP 15–31; TEMP 36.7; O2SAT 92–99; BMI 44.9
--- NOTE | 2023-09-01 18:01 | DI.RAD.S_ITS ---
PROCEDURE: XR CHEST 1V INDICATIONS: chest pain TECHNIQUE: One view of the chest was acquired. COMPARISON: [facility], CR, XR CHEST 1V, 08/21/2023, 10:56. [facility], CR, XR CHEST 1V, 08/20/2023, 19:37. FINDINGS: Surgical changes and devices: None. Lungs and pleura: Mild right perihilar and lower lung opacities. [id number] left effusion with underlying opacity. Mediastinum: Cardiomegaly. Bones and chest wall: Unremarkable IMPRESSION: Lieh-jq-whmdetem left effusion with underlying lung opacity. Mild right lower lung opacity also seen. These may represent atelectasis and/or airspace disease. Consider future imaging surveillance to assess for resolution. Dictated by: Armando Minaya M.D. on 09/01/2023 at 19:00 Approved by: Armando Minaya M.D. on 09/01/2023 at 19:02
[2023-09-01 18:48] LABS: Add Manual Diff / Slide Review NO; Basophils Absolute Auto 100 /uL (0-100); Basophils Percent Auto 0.9 % (0-2); Eosinophils Absolute Auto 400 /uL (0-450); Eosinophils Percent Auto 3.1 % (2-4); Hematocrit 44.1 % (36-46); Hemoglobin 14.6 g/dL (12.0-16.0); Lymphocytes Absolute Auto 2200 /uL (1100-4500); Lymphocytes Percent Auto 16.5 % (25-40); Mean Corpuscular Hemoglobin 28.1 PG (26-34); Mean Corpuscular Volume 85.1 fL (80-100); Monocytes Absolute Auto 700 /uL (0-900); Monocytes Percent Auto 5.3 % (3-14); Neutrophils Absolute Auto 9800 /uL (1500-7000); Neutrophils Percent Auto 74.2 % (50-75); Platelet Count 300 X10^3/uL (150-400); Red Blood Cell Count 5.19 X10^6/uL (4.0-5.2); Red Cell Distribution Width 17.7 % (11.6-14.8); White Blood Cell Count 13.3 X10^3/uL (4.5-11.0)
[2023-09-01 19:00] LABS: INR 0.9 (0.9-1.3); Prothrombin Time 10.8 SECONDS (9.4-12.5)
--- NOTE | 2023-09-01 19:00 | ED_ITS ---
HPI - Chest Pain General Chief Complaint: Chest Pain Stated Complaint: Chest Pain, SOB Time Seen by Provider: 09/01/23 18:25 Source: patient Mode of arrival: Ambulatory Limitations: no limitations History of Present Illness HPI narrative: 42-year-old female who arrives the emergency department for shortness of breath cough and chest discomfort. Proximally 2 weeks ago patient was admitted to the hospital for left-sided pleural effusion and shortness of breath. She had a thoracentesis. She stated that the thoughts were was that the fluid was from an infection. She felt better after thoracentesis and was discharged home on antibiotics. She was completed the course of antibiotics however 2 days ago started to have worsening shortness of breath and discomfort feeling similar to what she had 2 weeks ago but not as bad. No fevers. Is having a cough. No abdominal pain or nausea or vomiting. No lower extremity swelling. Related Data Home Medications Medication Instructions Recorded Confirmed amitriptyline 150 mg tablet 150 mg PO BEDTIME 09/01/23 09/01/23 bupropion HCl 150 mg 24 hr tablet, 150 mg PO DAILY 09/01/23 09/01/23 extended release levothyroxine 150 mcg tablet 150 mcg PO QAM 09/01/23 09/01/23 pregabalin 200 mg capsule 200 mg PO TID 09/01/23 09/01/23 quetiapine 25 mg tablet 75 mg PO BEDTIME 09/01/23 09/01/23 Previous Rx's Medication Instructions Recorded albuterol sulfate 2.5 mg/3 mL 2.5 mg (3 mL) inhalation Q4-6H PRN 11/01/20 (0.083 %) solution for nebulization bronchospasm #90 mL metoprolol tartrate 25 mg tablet 25 mg PO BID #180 tabs 08/12/22 duloxetine 60 mg capsule,delayed 60 mg PO DAILY #90 caps 07/25/23 release tizanidine 4 mg tablet 1 mg (1/4 x 4 mg) PO 3XD PRN for 07/29/23 muscle spasm #270 tabs albuterol sulfate 90 mcg/actuation 2 puff inhalation Q4HP PRN 08/01/23 aerosol inhaler (Ventolin HFA) shortness of breath or wheezing #1 ea Allergies Allergy/AdvReac Type Severity Reaction Status Date / Time Penicillins [PENICILLINS] Allergy Mild Rash Verified 09/01/23 21:27 fluconazole [From DIFLUCAN] AdvReac Intermediate vomiting Verified 09/01/23 21:27 and abd pain codeine [CODEINE] AdvReac Mild NAUSEA Verified 09/01/23 21:27 Review of Systems Review of Systems ROS Unobtainable: All systems reviewed & are unremarkable except as noted in HPI and below Patient History Medical History Hot flashes due to menopause Onychomycosis Chronic pain due to neoplasm Functional memory problem BMI 45.0-49.9, adult History of colon polyps Insomnia disorder, with non-sleep disorder mental comorbidity Bilateral chronic knee pain Acute pain of right knee UTI (urinary tract infection) Paget's disease of bone Obstructive sleep apnea on CPAP Lymphedema of arm Essential hypertension Major depressive disorder Abrasion, corneal Migraines Fibromyalgia (~05/2017) History of PCR DNA positive for HSV1 (~2014) Hypothyroidism (~2008) Rheumatoid arthritis Asthma Depression Irritable bowel syndrome Diverticular disease (~2015) Gestational diabetes mellitus (GDM) (10/27/14) Morbid obesity with body mass index (BMI) of 40.0 to 44.9 in adult (11/08/10) Surgical History Status post laparoscopy (01/19/16) Status post laparoscopic supracervical hysterectomy (10/23/15) Status post delivery (12/30/14) Status post tubal ligation (12/30/14) Status post surgery (07/07/12) Family History Grandmother Stroke Grandfather Heart disease Cancer Father Hypertension Mother Hypothyroidism (acquired) Social History marital status: household members: spouse and children lives independently: Yes Smoking Status: Current some day smoker alcohol intake: current substance use type: does not use Smoking Status: Current some day smoker tobacco type: cigarettes and vaping alcohol intake frequency: holidays/special occasions only Substance Use Type: marijuana Exam Initial Vital Signs Initial Vital Signs: Vital Signs Temperature 98.1 F 09/01/23 17:56 Pulse Rate 85 09/01/23 17:56 Respiratory Rate 18 09/01/23 17:56 Blood Pressure 163/106 H 09/01/23 17:56 Pulse Oximetry 99 09/01/23 17:56 Oxygen Delivery Method Room Air 09/01/23 17:56 [facility] Head: normal to inspection and normocephalic Resp Effort & Inspection: cough, no retractions and tachypneic Auscultation: diminished lung sounds on the left, rhonchi and wheezes Cardio Rate: regular rate Rhythm: regular rhythm GI Inspection: normal to inspection and non-distended Skin General: no rashes or lesions noted Neuro General: patient alert, patient awake and moves all extremities Extrem General: No edema Course Orders Ordered: ED Orders 09/01/23 18:01 XR chest 1V Stat EKG-12 Lead Stat 09/01/23 18:35 Complete Blood Count AUTO DIFF Stat Comprehensive Metabolic Panel Stat Lactate (Lactic Acid) Stat Lipase Stat Magnesium Stat NT-proBNP (BNP-Adult 18+) Stat PTT Partial Thromboplastin [place] Stat Procalcitonin Stat Prothrombin Time INR Stat Troponin & CK Cardiac Panel Stat 09/01/23 19:13 Blood Culture Stat Acetaminophen (Acetaminophen 325 Mg Tablet) 650 mg PO Q6H PRN PRN Reason: Fever/Mild Pain (1-3) Hydrocodone Bitart/Acetaminophen (Hydrocodone/Acet 5/325 Tablet) 1 tab PO Q4H PRN PRN Reason: Pain, Moderate (4-6) Albuterol (Albuterol 2.5 Mg/3 Ml Neb (Adult)) 2.5 mg INH Q4H PRN PRN Reason: bronchospasm Amitriptyline HCl (Amitriptyline 25 Mg Tablet) 150 mg PO BEDTIME [facility] Bupropion HCl (Bupropion Xl 150 Mg Tab) 150 mg PO DAILY [facility] Duloxetine HCl (Duloxetine 30 Mg Capsule) 60 mg PO DAILY [facility] Enoxaparin Sodium (Enoxaparin 40 Mg/0.4 Ml Syringe) 40 mg SUBCUT DAILY [facility] Fluticasone Propionate (Fluticasone 120 [place]/16 Gm [place].Susp) 1 spray NASAL Q12H [facility] Last Admin: 09/01/23 23:42 Dose: Not Given Documented By: AB Levofloxacin (Levaquin) 750 mg in 150 mls @ 100 mls/hr IV Q24H [facility] Ketorolac Tromethamine (Ketorolac 30 Mg/Ml Vial) 30 mg IV Q6H PRN PRN Reason: Pain, Moderate (4-6) Stop: 09/06/23 22:02 Levothyroxine Sodium (Levothyroxine 50 Mcg Tablet) 150 mcg PO BEDTIME [facility] Metoprolol Tartrate (Metoprolol Ir 25 Mg Tablet) 25 mg PO BID [facility] Last Admin: 09/01/23 23:54 Dose: 25 mg Documented By: AB Morphine Sulfate (Morphine 4 Mg/Ml Inj) 3 mg IV Q2HR [facility] Last Admin: 09/02/23 00:03 Dose: 3 mg Documented By: AB Naloxone HCl (Naloxone 0.4 Mg/Ml Vial) 0.2 mg IV Q2MIN PRN PRN Reason: Opiate Reversal Ondansetron HCl (Ondansetron 4 Mg/2 Ml Inj) 4 mg IV Q8HR PRN PRN Reason: Nausea And Vomiting Pantoprazole Sodium (Pantoprazole Dr 20 Mg Tablet) 20 mg PO 0600 [facility] Pregabalin (Pregabalin 50 Mg Capsule) 200 mg PO TID [facility] Last Admin: 09/01/23 23:54 Dose: 200 mg Documented By: Promethazine HCl (Promethazine 12.5 Mg Supp) 12.5 mg DC Q6HR PRN PRN Reason: Nausea And Vomiting Quetiapine Fumarate (Quetiapine 25 Mg Tablet) 75 mg PO BEDTIME [facility] Last Admin: 09/01/23 23:53 Dose: 75 mg Documented By: Sodium Chloride (Sodium Chloride 0.9% Flush) 10 ml IV BID [facility] Last Admin: 09/01/23 23:54 Dose: 10 ml Documented By: Sodium Chloride (Sodium Chloride 0.9% Flush) 10 ml IV PRN PRN PRN Reason: Flush Tizanidine HCl (Tizanidine 4 Mg Tablet) 1 mg PO TID [facility] Discontinued Medications Albuterol (Albuterol 2.5 Mg/3 Ml Neb (Adult)) 5 mg INH NOW ONE Stop: 09/01/23 19:08 Last Admin: 09/01/23 19:17 Dose: 5 mg Documented By: DANIELLE Aspirin (Aspirin 81 Mg Chew Tab) 324 mg PO NOW ONE Stop: 09/01/23 18:02 Last Admin: 09/01/23 18:15 Dose: Not Given Documented By: ALESSIA Ketorolac Tromethamine (Ketorolac 30 Mg/Ml Vial) 30 mg IV NOW ONE Stop: 09/01/23 19:54 Last Admin: 09/01/23 19:58 Dose: 30 mg Documented By: ES Non-Formulary Medication (Levothyroxine) 150 [facility] Vital Signs Vital signs: Vital Signs - 8 hr 09/01/23 17:56 09/01/23 18:28 09/01/23 18:29 Temperature 98.1 F Pulse Rate 85 Respiratory Rate 18 Blood Pressure 163/106 H 177/102 H Pulse Oximetry 99 98 Oxygen Delivery Method Room Air Oxygen Flow Rate Fraction of Inspired Oxygen 09/01/23 18:29 09/01/23 18:30 09/01/23 18:30 Temperature Pulse Rate 83 84 Respiratory Rate 18 Blood Pressure 184/106 H Pulse Oximetry 99 98 Oxygen Delivery Method Oxygen Flow Rate Fraction of Inspired Oxygen 09/01/23 18:45 09/01/23 19:00 09/01/23 19:00 Temperature Pulse Rate 80 77 Respiratory Rate 24 24 Blood Pressure 174/130 H Pulse Oximetry 94 92 Oxygen Delivery Method Room Air Oxygen Flow Rate Fraction of Inspired Oxygen 09/01/23 19:15 09/01/23 19:17 09/01/23 19:30 Temperature Pulse Rate 79 78 79 Respiratory Rate 25 H 24 22 Blood Pressure Pulse Oximetry 95 95 94 Oxygen Delivery Method Room Air Oxygen Flow Rate 0 Fraction of Inspired Oxygen 09/01/23 19:30 09/01/23 19:45 09/01/23 20:00 Temperature Pulse Rate 81 82 Respiratory Rate 31 H 30 H Blood Pressure 170/87 H Pulse Oximetry 95 97 Oxygen Delivery Method Oxygen Flow Rate Fraction of Inspired Oxygen 09/01/23 20:00 09/01/23 20:15 09/01/23 20:30 Temperature Pulse Rate 82 81 Respiratory Rate 19 18 Blood Pressure 169/104 H Pulse Oximetry 95 94 Oxygen Delivery Method Room Air Oxygen Flow Rate Fraction of Inspired Oxygen 09/01/23 20:30 09/01/23 20:45 09/01/23 21:00 Temperature Pulse Rate 82 81 Respiratory Rate 28 H 19 Blood Pressure 156/96 H Pulse Oximetry 97 94 Oxygen Delivery Method Oxygen Flow Rate Fraction of Inspired Oxygen 09/01/23 21:00 Temperature Pulse Rate Respiratory Rate Blood Pressure 167/91 H Pulse Oximetry Oxygen Delivery Method Oxygen Flow Rate Fraction of Inspired Oxygen MDM - Chest Pain Lab Data Attestation: I reviewed the patient's lab results. 09/01/23 18:35 09/01/23 18:35 Labs: Lab Results 09/01/23 Range/Units 18:35 WBC 13.3 H (4.5-11.0) X10^3/uL RBC 5.19 (4.0-5.2) X10^6/uL Hgb 14.6 (12.0-16.0) g/dL Hct 44.1 (36-46) % MCV 85.1 (80-100) fL MCH 28.1 (26-34) PG MCHC 33.0 (30-36) % RDW 17.7 H (11.6-14.8) % Plt Count 300 (150-400) X10^3/uL Neut % (Auto) 74.2 (50-75) % Lymph % (Auto) 16.5 L (25-40) % [place] % (Auto) 5.3 (3-14) % Eos % (Auto) 3.1 (2-4) % Baso % (Auto) 0.9 (0-2) % Neut # (Auto) 9800 H (4558-4814) /uL Lymph # (Auto) 2200 (7333-8310) /uL [place] # (Auto) 700 (0-900) /uL Eos # (Auto) 400 (0-450) /uL Baso # (Auto) 100 (0-100) /uL PT 10.8 (9.4-12.5) SECONDS INR 0.9 (0.9-1.3) APTT 35 (25.1-36.5) SECONDS Sodium 137 (137-145) mmol/L Potassium 3.9 (3.4-5.1) mmol/L Chloride 101 (98-107) mmol/L Carbon Dioxide 32 (22-32) mmol/L BUN 14 (7-17) mg/dL Creatinine 0.69 (0.52-1.04) mg/dL Estimated GFR > 60 (>60) mL/min BUN/Creatinine Ratio 20.3 (6-22) Glucose 78 (70-100) mg/dL Lactate 1.9 (0.7-2.1) mmol/L Calcium 9.4 (8.4-10.2) mg/dL Magnesium 2.2 (1.6-2.3) mg/dL Total Bilirubin 0.7 (0.2-1.3) mg/dL AST 44 H (14-36) IU/L ALT 69 H (<35) IU/L Alkaline Phosphatase 122 (38-126) U/L Total Creatine Kinase 41 (30-135) U/L Troponin I < 0.012 (0.01-0.034) ng/mL NT-Pro-B Natriuret Pep 85 (<125) pg/mL Total Protein 7.7 (6.3-8.2) g/dL Albumin 4.5 (3.5-5.0) g/dL Globulin 3.2 (1.7-4.1) g/dL Albumin/Globulin Ratio 1.4 (1.0-2.8) Lipase 50 (23-300) U/L Procalcitonin < 0.03 (<0.5) ng/mL Imaging Data Chest x-ray: Radiologist's Impression: PROCEDURE: XR CHEST 1V INDICATIONS: chest pain TECHNIQUE: One view of the chest was acquired. COMPARISON: [facility], , XR CHEST 1V, 08/21/2023, 10:56. [facility], , XR CHEST 1V, 08/20/2023, 19:37. FINDINGS: Surgical changes and devices: None. Lungs and pleura: Mild right perihilar and lower lung opacities. [id number] left effusion with underlying opacity. Mediastinum: Cardiomegaly. Bones and chest wall: Unremarkable IMPRESSION: [id number] left effusion with underlying lung opacity. Mild right lower lung opacity also seen. These may represent atelectasis and/or airspace disease. Consider future imaging surveillance to assess for resolution. ECG Data Attestation: I personally reviewed and interpreted this ECG as follows: Interpretation: Sinus rhythm Ventricular rate 82 Normal axis Normal QRS Normal QTC No ST T wave changes MDM Narrative Medical decision making narrative: Chest x-ray today shows reoccurrence of the left-sided pleural effusion although not as bad as what it was when she was admitted to hospital 2 weeks ago. She was not hypoxic. Potentially some improvement after the nebulizer treatments. I did discuss the case with Dr. Gilbert on-call with pulmonology who stated that given the presentation that I described she was recommend admission, repeat thoracentesis, CT scan following the thoracentesis then further evaluation from there. She did not feel that the patient needed an emergent evaluation by CT surgery or by pulmonology. She did not recommend a bronchoscopy until the above course of action. Even though the patient is not hypoxic there is return of the fluid and I am unable to get in touch with her primary doctor to try to establish any procedures as an outpatient. Did discuss the case with Dr. steven hospitalist on-call who will admit. Discussed the need for admission with the patient who expressed understanding agreement as well. Discharge Plan Departure Patient Disposition: Admitted As Inpatient Clinical Impression: Pleural effusion, Dyspnea on exertion Admit Date/Time: 09/01/23 21:14 Admit Provider: Marvel Steven
[2023-09-01 19:02] LABS: PTT Partial Thromboplastin Tim 35 SECONDS (25.1-36.5)
[2023-09-01 19:08] LABS: Lactate (Lactic Acid) 1.9 mmol/L (0.7-2.1)
[2023-09-01 19:09] LABS: Alanine Aminotransferase 69 IU/L (<35); Albumin 4.5 g/dL (3.5-5.0); Albumin Globulin Ratio 1.4 (1.0-2.8); Alkaline Phosphatase 122 U/L (38-126); Aspartate Aminotransferase 44 IU/L (14-36); BUN Creatinine Ratio 20.3 (6-22); Bilirubin Total 0.7 mg/dL (0.2-1.3); Blood Urea Nitrogen 14 mg/dL (7-17); Calcium 9.4 mg/dL (8.4-10.2); Carbon Dioxide 32 mmol/L (22-32); Chloride 101 mmol/L (98-107); Creatine Kinase 41 U/L (30-135); Estimated Glomerular Filt Rate > 60 mL/min (>60); Globulin 3.2 g/dL (1.7-4.1); Glucose 78 mg/dL (70-100); HEMOLYSIS < 15 (0-50); Lipase 50 U/L (23-300); Magnesium 2.2 mg/dL (1.6-2.3); Potassium 3.9 mmol/L (3.4-5.1); Sodium 137 mmol/L (137-145); Total Protein 7.7 g/dL (6.3-8.2)
[2023-09-01] MEDS: ALBUTEROL 2.5 MG/3 ML NEB (ADULT) 5 MG INH (19:17)
[2023-09-01 19:18] LABS: NT-proBNP (BNP-Adult 18+) 85 pg/mL (<125)
[2023-09-01 19:20] LABS: Troponin I < 0.012 ng/mL (0.01-0.034)
[2023-09-01 19:26] LABS: Procalcitonin < 0.03 ng/mL (<0.5)
[2023-09-01] MEDS: KETOROLAC 30 MG/ML VIAL IV (19:58)
[2023-09-01] MEDS: QUETIAPINE 25 MG TABLET 75 MG PO (23:53)
[2023-09-01] MEDS: METOPROLOL IR 25 MG TABLET PO (23:54)
[2023-09-01] MEDS: SODIUM CHLORIDE 0.9% FLUSH 10 ML IV (23:54)
[2023-09-01] MEDS: PREGABALIN 50 MG CAPSULE 200 MG PO (23:54)
[2023-09-02] VITALS (47 sets, daily range): BP systolic 101–140; BP diastolic 53–75; PULSE 67–84; RESP 15–28; TEMP 36.2; O2SAT 81–96; BMI 44.9
[2023-09-02] MEDS: MORPHINE 4 MG/ML INJ 3 MG IV ×3 (00:03→08:28)
--- NOTE | 2023-09-02 00:15 | P.HP_ITS ---
History of Present Illness History of Present Illness Date Patient Seen: 09/02/23 Time Patient Seen: 00:15 Chief complaint: Chest Pain, SOB Narrative: The pt is a 42 yo who was recently admitted to our service on 08/18 and was found to have a left pleural effusion that was drained, 1800cc, that appeared to be transudative. Over the past week, she has had increasing SOB, dyspnea, and pain on inspiration. She comes to the ER tonight with worsening symptoms and wheezing. Alina denies any fevers, chills, sputum production, N/V/ weight loss or night sweats. The pt quit smoking tobacco 5 years ago but still smoke marijuana daily, no vaping, She also reports that she gets pneumonia on a year basis for unknown reasons. [facility] Medical History Hot flashes due to menopause Onychomycosis Chronic pain due to neoplasm Functional memory problem BMI 45.0-49.9, adult History of colon polyps Insomnia disorder, with non-sleep disorder mental comorbidity Bilateral chronic knee pain Acute pain of right knee UTI (urinary tract infection) Paget's disease of bone Obstructive sleep apnea on CPAP Lymphedema of arm Essential hypertension Major depressive disorder Abrasion, corneal Migraines Fibromyalgia (~05/2017) History of PCR DNA positive for HSV1 (~2014) Hypothyroidism (~2008) Rheumatoid arthritis Asthma Depression Irritable bowel syndrome Diverticular disease (~2015) Gestational diabetes mellitus (GDM) (10/27/14) Morbid obesity with body mass index (BMI) of 40.0 to 44.9 in adult (11/08/10) Surgical History Status post laparoscopy (01/19/16) Status post laparoscopic supracervical hysterectomy (10/23/15) Status post delivery (12/30/14) Status post tubal ligation (12/30/14) Status post surgery (07/07/12) Family History Grandmother Stroke Grandfather Heart disease Cancer Father Hypertension Mother Hypothyroidism (acquired) Social History marital status: household members: spouse and children lives independently: Yes Smoking Status: Current some day smoker alcohol intake: current substance use type: does not use Meds Home Medications and Allergies Home Medications Medication Instructions Recorded Confirmed Type albuterol sulfate 2.5 mg/3 mL 2.5 mg (3 mL) inhalation Q4-6H PRN 11/01/20 09/01/23 Rx (0.083 %) solution for nebulization bronchospasm #90 mL metoprolol tartrate 25 mg tablet 25 mg PO BID #180 tabs 08/12/22 09/01/23 Rx duloxetine 60 mg capsule,delayed 60 mg PO DAILY #90 caps 07/25/23 09/01/23 Rx release tizanidine 4 mg tablet 1 mg (1/4 x 4 mg) PO 3XD PRN for 07/29/23 09/01/23 Rx muscle spasm #270 tabs albuterol sulfate 90 mcg/actuation 2 puff inhalation Q4HP PRN 08/01/23 09/01/23 Rx aerosol inhaler (Ventolin HFA) shortness of breath or wheezing #1 ea amitriptyline 150 mg tablet 150 mg PO BEDTIME 09/01/23 09/01/23 History bupropion HCl 150 mg 24 hr tablet, 150 mg PO DAILY 09/01/23 09/01/23 History extended release levothyroxine 150 mcg tablet 150 mcg PO QAM 09/01/23 09/01/23 History pregabalin 200 mg capsule 200 mg PO TID 09/01/23 09/01/23 History quetiapine 25 mg tablet 75 mg PO BEDTIME 09/01/23 09/01/23 History Allergies Allergy/AdvReac Type Severity Reaction Status Date / Time Penicillins [PENICILLINS] Allergy Mild Rash Verified 09/01/23 21:27 fluconazole [From DIFLUCAN] AdvReac Intermediate vomiting Verified 09/01/23 21:27 and abd pain codeine [CODEINE] AdvReac Mild NAUSEA Verified 09/01/23 21:27 Exam Vital Signs (past 8 hours): - 09/01/23 17:56 09/01/23 18:28 09/01/23 18:29 Temperature 98.1 F Pulse Rate 85 Respiratory Rate 18 Blood Pressure 163/106 H 177/102 H Blood Pressure [Right Arm] Pulse Oximetry 99 98 Oxygen Delivery Method Room Air Oxygen Flow Rate Fraction of Inspired Oxygen 09/01/23 18:29 09/01/23 18:30 09/01/23 18:30 Temperature Pulse Rate 83 84 Respiratory Rate 18 Blood Pressure 184/106 H Blood Pressure [Right Arm] Pulse Oximetry 99 98 Oxygen Delivery Method Oxygen Flow Rate Fraction of Inspired Oxygen 09/01/23 18:45 09/01/23 19:00 09/01/23 19:00 Temperature Pulse Rate 80 77 Respiratory Rate 24 24 Blood Pressure 174/130 H Blood Pressure [Right Arm] Pulse Oximetry 94 92 Oxygen Delivery Method Room Air Oxygen Flow Rate Fraction of Inspired Oxygen 09/01/23 19:15 09/01/23 19:17 09/01/23 19:30 Temperature Pulse Rate 79 78 79 Respiratory Rate 25 H 24 22 Blood Pressure Blood Pressure [Right Arm] Pulse Oximetry 95 95 94 Oxygen Delivery Method Room Air Oxygen Flow Rate 0 Fraction of Inspired Oxygen 09/01/23 19:30 09/01/23 19:45 09/01/23 20:00 Temperature Pulse Rate 81 82 Respiratory Rate 31 H 30 H Blood Pressure 170/87 H Blood Pressure [Right Arm] Pulse Oximetry 95 97 Oxygen Delivery Method Oxygen Flow Rate Fraction of Inspired Oxygen 09/01/23 20:00 09/01/23 20:15 09/01/23 20:30 Temperature Pulse Rate 82 81 Respiratory Rate 19 18 Blood Pressure 169/104 H Blood Pressure [Right Arm] Pulse Oximetry 95 94 Oxygen Delivery Method Room Air Oxygen Flow Rate Fraction of Inspired Oxygen 09/01/23 20:30 09/01/23 20:45 09/01/23 21:00 Temperature Pulse Rate 82 81 Respiratory Rate 28 H 19 Blood Pressure 156/96 H Blood Pressure [Right Arm] Pulse Oximetry 97 94 Oxygen Delivery Method Oxygen Flow Rate Fraction of Inspired Oxygen 09/01/23 21:00 09/01/23 21:15 09/01/23 21:30 Temperature Pulse Rate 83 80 Respiratory Rate 21 24 Blood Pressure 167/91 H Blood Pressure [Right Arm] Pulse Oximetry 95 95 Oxygen Delivery Method Oxygen Flow Rate Fraction of Inspired Oxygen 09/01/23 21:30 09/01/23 21:54 09/01/23 21:55 Temperature Pulse Rate 85 84 Respiratory Rate 19 18 Blood Pressure 184/98 H Blood Pressure [Right Arm] Pulse Oximetry 98 97 Oxygen Delivery Method Oxygen Flow Rate Fraction of Inspired Oxygen 09/01/23 21:55 09/01/23 22:00 09/01/23 22:09 Temperature Pulse Rate 85 84 Respiratory Rate 23 17 Blood Pressure 152/86 H Blood Pressure [Right Arm] 152/86 H Pulse Oximetry 98 Oxygen Delivery Method Room Air Oxygen Flow Rate Fraction of Inspired Oxygen Fraction of Inspired Oxygen 21 SaO2/FiO2 Ratio 452 Oxygen Delivery Method Room Air Oxygen Flow Rate 0 Const General: cooperative, healthy appearing and comfortable Resp Auscultation: clear to auscultation bilaterally and rales on the left Cardio Rate: regular rate Rhythm: regular rhythm Extrem General: no clubbing, cyanosis or edema Objective Labs 09/01/23 18:35 09/01/23 18:35 Labs: Laboratory Results - last 24 hr 09/01/23 18:35 WBC 13.3 H RBC 5.19 Hgb 14.6 Hct 44.1 MCV 85.1 MCH 28.1 MCHC 33.0 RDW 17.7 H Plt Count 300 Neut % (Auto) 74.2 Lymph % (Auto) 16.5 L [place] % (Auto) 5.3 Eos % (Auto) 3.1 Baso % (Auto) 0.9 Neut # (Auto) 9800 H Lymph # (Auto) 2200 [place] # (Auto) 700 Eos # (Auto) 400 Baso # (Auto) 100 PT 10.8 INR 0.9 APTT 35 Sodium 137 Potassium 3.9 Chloride 101 Carbon Dioxide 32 BUN 14 Creatinine 0.69 Estimated GFR > 60 BUN/Creatinine Ratio 20.3 Glucose 78 Lactate 1.9 Calcium 9.4 Magnesium 2.2 Total Bilirubin 0.7 AST 44 H ALT 69 H Alkaline Phosphatase 122 Total Creatine Kinase 41 Troponin I < 0.012 NT-Pro-B Natriuret Pep 85 Total Protein 7.7 Albumin 4.5 Globulin 3.2 Albumin/Globulin Ratio 1.4 Lipase 50 Procalcitonin < 0.03 Assessment & Plan Assessment and plan (1) Pleural effusion: Status: Acute (2) BMI 45.0-49.9, adult: Status: Acute Plan I spoke with the ER provider regarding the pt's presenting symptoms and imaging and agree with the decision for admission. The ER contacted the assisted sales representative Dr. Vladimir iverson at the [facility] who did not recommend transfering but just retapping the fluid and following up post procedure with a CT scan. Presently she is on RA, no distress, will start empiric Levoquin 750 since infiltrates and WBC of 13. I reviewed the labs myself, CXR reviewed showing the moderate sized effusion that returned. I discussed the pt's home meds with her. Breathing tx ordered for her asthma, consider starting steroids.
[2023-09-02] MEDS: levoFLOXacin 750 MG/150 ML PIGGYBACK 100 MG IV (01:03)
[2023-09-02] MEDS: buPROPion 75 MG TABLET 150 MG PO (01:54)
[2023-09-02] MEDS: AMITRIPTYLINE 25 MG TABLET 150 MG PO (01:54)
[2023-09-02] MEDS: HYDROCODONE/ACET 5/325 TABLET 1 TAB PO ×2 (01:54→12:14)
[2023-09-02 04:45] LABS: Add Manual Diff / Slide Review NO; Basophils Absolute Auto 100 /uL (0-100); Basophils Percent Auto 1.1 % (0-2); Eosinophils Absolute Auto 500 /uL (0-450); Eosinophils Percent Auto 3.9 % (2-4); Hematocrit 43.7 % (36-46); Hemoglobin 14.1 g/dL (12.0-16.0); Lymphocytes Absolute Auto 2500 /uL (1100-4500); Lymphocytes Percent Auto 20.1 % (25-40); Mean Corpuscular HGB Conc 32.2 % (30-36); Mean Corpuscular Hemoglobin 27.3 PG (26-34); Mean Corpuscular Volume 84.8 fL (80-100); Monocytes Absolute Auto 800 /uL (0-900); Monocytes Percent Auto 6.4 % (3-14); Neutrophils Absolute Auto 8500 /uL (1500-7000); Neutrophils Percent Auto 68.5 % (50-75); Platelet Count 302 X10^3/uL (150-400); Red Blood Cell Count 5.16 X10^6/uL (4.0-5.2); Red Cell Distribution Width 17.2 % (11.6-14.8); White Blood Cell Count 12.4 X10^3/uL (4.5-11.0)
[2023-09-02 04:57] LABS: Alanine Aminotransferase 65 IU/L (<35); Albumin 4.2 g/dL (3.5-5.0); Albumin Globulin Ratio 1.4 (1.0-2.8); Alkaline Phosphatase 104 U/L (38-126); Aspartate Aminotransferase 41 IU/L (14-36); BUN Creatinine Ratio 16.9 (6-22); Bilirubin Total 0.6 mg/dL (0.2-1.3); Blood Urea Nitrogen 12 mg/dL (7-17); Carbon Dioxide 31 mmol/L (22-32); Chloride 103 mmol/L (98-107); Cholesterol 217 mg/dL (140-199); Estimated Glomerular Filt Rate > 60 mL/min (>60); Glucose 90 mg/dL (70-100); HDL Cholesterol 46 mg/dL (40-60); HEMOLYSIS < 15 (0-50); LDL Cholesterol Calculated 138 mg/dL (<100); Potassium 3.7 mmol/L (3.4-5.1); Sodium 138 mmol/L (137-145); Total Protein 7.2 g/dL (6.3-8.2); Triglycerides 163 mg/dL (35-150)
[2023-09-02 05:05] LABS: NT-proBNP (BNP-Adult 18+) 66 pg/mL (<125)
[2023-09-02] MEDS: PANTOPRAZOLE DR 20 MG TABLET 40 MG PO (06:46)
--- NOTE | 2023-09-02 08:23 | DI.US.S_ITS ---
PROCEDURE: US THORACENTESIS INDICATIONS: LEFT EFFUSION TECHNIQUE: The indications, alternatives, benefits, risks, and complications of the procedure were explained to the patient. Written informed consent was obtained and placed in the chart. The chest was examined sonographically, and an appropriate site was chosen for thoracentesis. The skin was prepared and draped in the usual sterile fashion, and 1% lidocaine was infiltrated from the skin down through the pleural surface. A 19-gauge catheter-covered needle was then introduced into the pleural space, the catheter was advanced and the needle was withdrawn, and thereafter pleural fluid was aspirated. The catheter was then removed and a dressing was applied. COMPARISON: [facility], THORACENTESIS, 08/21/2023, 8:53. FINDINGS: Access site: Left hemithorax. Needle: One-Step centesis catheter with introducer needle. Fluid volume and description: 1460 cc of clear yellowish fluid. Fluid sent for diagnostic testin cc was sent. Medications: 1% lidocaine for local anaesthesia. Complications: None; post-procedural chest radiograph is pending to assess for pneumothorax. IMPRESSION: Successful ultrasound-guided thoracentesis. Dictated by: Patrick Leroy M.D. on 09/02/2023 at 11:34 Approved by: Patrick Leroy M.D. on 09/02/2023 at 11:34
--- NOTE | 2023-09-02 08:23 | PATH_ITS ---
Note [facility] Accession Number: [id number] TESTS RESULT FLAG UNITS REF RANGE LAB Clinician Provided Cytology Information No. of containers..01 Other (Miscellaneous) Source: LEFT LUNG DIAGNOSIS: LEFT LUNG, PLEURAL EFFUSION, THORACENTESIS. INCONCLUSIVE. FEW GROUPS OF ATYPICAL EPITHELIOID CELLS ARE PRESENT. FURTHER CHARACTERIZATION IS PENDING IMMUNOHISTOCHEMICAL WORK-UP TO DIFFERENTIATE BETWEEN REACTIVE ATYPIA OF MESOTHELIAL CELLS VERSUS A NEOPLASTIC PROCESS. THE FINAL DIAGNOSIS WILL BE REFLECTED IN THE ADDENDUM REPORT. THIS INTERPRETATION INCLUDES EVALUATION OF A CELL BLOCK. Pathologist ICD10: 01 J91.8 Signed out by: Elvira Lopez MD, Pathologist NPI- [id number] Performed by: Eugene Lindsay, Bundle Packer ([facility]) Gross description: 70 CC, YELLOW, HAZY RECEIVED: FRESH IN BLUE CAP CONTAINER.VO /VDU 09/03/2023 0637 Local FLAG LEGEND: L-Low Normal,H-High Normal,LL-Alert Low,HH-Alert High <-Panic Low,>-Panic High,A-Abnormal,AA-Critical Abnormal Performed at: 01 =Z [facility] [address] [place] [address] [address], [place] [address] Amish Morton MD, Performed at: 01 [facility] [address] [place] [address] [address], [place], [place] [id number] MD Amish Morton MD Phone: [phone]
--- NOTE | 2023-09-02 08:25 | DI.CT.S_ITS ---
PROCEDURE: CT CHEST W CON INDICATIONS: recurrent eff, r/o mass TECHNIQUE: After the administration of intravenous contrast, 5 mm thick sections acquired from the pulmonary apices to the posterior costophrenic angles. 1 mm axial lung, 5 mm thick coronal and sagittal reformats and 7 mm axial MIP were acquired. For radiation dose reduction, the following was used: automated exposure control, adjustment of mA and/or kV according to patient size. COMPARISON: [facility], CR, XR CHEST 1V, 08/21/2023, 10:56. [facility], CR, XR CHEST 1V, 09/01/2023, 18:17. [facility], CT, CT ANGIO CHEST PE PROTOCOL, 05/29/2023, 19:39. FINDINGS: Image quality: Diagnostic. Lower Neck: No enlarged lymph nodes. Thyroid: No thyroid nodules which require sonographic follow up, per consensus guidelines. Axillae: No enlarged lymph nodes. Chest Wall: Unremarkable. Bones: Unremarkable. Lungs and Pleura: Patient is status post interval left-sided thoracentesis with small amount of residual partially loculated pleural effusion in left lung base extending to oblique fissure. Segmental atelectasis in posterior and lateral aspect of left lower lobe is seen, underlying infiltrate/mass cannot be excluded. Subtle patchy ground-glass opacities are seen scattered in posterior and lateral periphery of right lower lobe near right lung base. No pneumothorax. Central and peripheral airway is patent. Heart: Heart size is normal. No pericardial effusion. Thoracic Vessels: The aorta and pulmonary arteries demonstrate normal size. Mediastinum and Corin: No enlarged lymph nodes. Subcentimeter lymph nodes are seen scattered in mediastinum measures up to 7 millimeters in short axis diameter in right paratracheal space. Esophagus: There is mild wall thickening and edema involving mid to distal esophageal wall extending to GE junction. No significant hiatal hernia. Upper Abdomen: Visualized upper abdomen solid organs and bowel loops appear normal. IMPRESSION: 1. Patient is status post left-sided thoracentesis with small amount of residual partially loculated left pleural effusion. Atelectasis versus small infiltrate scattered in posterior and medial aspect of left lower lobe. Underlying pulmonary nodule or mass cannot be entirely excluded. Follow-up until resolution is recommended. Please also correlate with aspirated fluid cytology results. 2. Scattered atelectasis in posterior medial periphery of right lower lobe. No pneumothorax. Airway is patent. 3. No enlarged mediastinal or hilar lymph nodes are seen. 4. Mildly thickened mid to distal esophageal wall extending to GE junction suggestive of esophagitis. Dictated by: Patrick Leroy M.D. on 09/02/2023 at 10:58 Approved by: Patrick Leroy M.D. on 09/02/2023 at 11:09
[2023-09-02] MEDS: ENOXAPARIN 40 MG/0.4 ML SYRINGE SUBCUT (08:26)
[2023-09-02] MEDS: SODIUM CHLORIDE 0.9% FLUSH 10 ML IV (10:00)
[2023-09-02] MEDS: PREGABALIN 50 MG CAPSULE 200 MG PO ×2 (10:24→15:48)
[2023-09-02] MEDS: KETOROLAC 30 MG/ML VIAL IV (12:14)
--- NOTE | 2023-09-02 14:04 | PC.NURSE ---
Patient given vicodin and toradol for discomfort to her chest and back. She sais that she sometimes feel sob and has chest pain. Pt had a thorocentisis done this admit, and she was just here a couple of weeks ago and had one then. She state that the first one produced 1800ml out and the second time she had 1000/1100cc out. She also has chronic pain to her knees and back, chest. States that she has been taking oral oxycodone every 4 hours prn as needed for discomfort. Patient is resting now and ate well at lunch.
[2023-09-02] MEDS: OXYCODONE IR 5 MG TABLET 10 MG PO (15:48)
--- NOTE | 2023-09-02 20:44 | PM.HP.1 ---
History of Present Illness History of Present Illness Date Patient Seen: 09/02/23 Chief complaint: Chest Pain, SOB Narrative: From overnight tele hospitalist The pt is a 42 yo who was recently admitted to our service on 08/18 and was found to have a left pleural effusion that was drained, 1800cc, that appeared to be transudative. Over the past week, she has had increasing SOB, dyspnea, and pain on inspiration. She comes to the ER tonight with worsening symptoms and wheezing. Alina denies any fevers, chills, sputum production, N/V/ weight loss or night sweats. The pt quit smoking tobacco 5 years ago but still smoke marijuana daily, no vaping, She also reports that she gets pneumonia on a year basis for unknown reasons. Pt complains of left chest pain with breathing. No cough or fevers. CXR with recurrent left pleural effusion. Pt has mild leukocytosis. FORMERLY [facility] Medical History Hot flashes due to menopause Onychomycosis Chronic pain due to neoplasm Functional memory problem BMI 45.0-49.9, adult History of colon polyps Insomnia disorder, with non-sleep disorder mental comorbidity Bilateral chronic knee pain Acute pain of right knee UTI (urinary tract infection) Paget's disease of bone Obstructive sleep apnea on CPAP Lymphedema of arm Essential hypertension Major depressive disorder Abrasion, corneal Migraines Fibromyalgia (~05/2017) History of PCR DNA positive for HSV1 (~2014) Hypothyroidism (~2008) Rheumatoid arthritis Asthma Depression Irritable bowel syndrome Diverticular disease (~2015) Gestational diabetes mellitus (GDM) (10/27/14) Morbid obesity with body mass index (BMI) of 40.0 to 44.9 in adult (11/08/10) Surgical History Status post laparoscopy (01/19/16) Status post laparoscopic supracervical hysterectomy (10/23/15) Status post delivery (12/30/14) Status post tubal ligation (12/30/14) Status post surgery (07/07/12) Family History Grandmother Stroke Grandfather Heart disease Cancer Father Hypertension Mother Hypothyroidism (acquired) Social History (Reviewed 09/02/23 @ 00:42 by TY Trotter marital status: household members: spouse and children lives independently: Yes Smoking Status: Current some day smoker alcohol intake: current substance use type: does not use Meds Home Medications and Allergies Home Medications Medication Instructions Recorded Confirmed Type albuterol sulfate 2.5 mg/3 mL 2.5 mg (3 mL) inhalation Q4-6H PRN 11/01/20 09/01/23 Rx (0.083 %) solution for nebulization bronchospasm #90 mL metoprolol tartrate 25 mg tablet 25 mg PO BID #180 tabs 08/12/22 09/01/23 Rx duloxetine 60 mg capsule,delayed 60 mg PO DAILY #90 caps 07/25/23 09/01/23 Rx release tizanidine 4 mg tablet 1 mg (1/4 x 4 mg) PO 3XD PRN for 07/29/23 09/01/23 Rx muscle spasm #270 tabs albuterol sulfate 90 mcg/actuation 2 puff inhalation Q4HP PRN 08/01/23 09/01/23 Rx aerosol inhaler (Ventolin HFA) shortness of breath or wheezing #1 ea amitriptyline 150 mg tablet 150 mg PO BEDTIME 09/01/23 09/01/23 History bupropion HCl 150 mg 24 hr tablet, 150 mg PO DAILY 09/01/23 09/01/23 History extended release levothyroxine 150 mcg tablet 150 mcg PO QAM 09/01/23 09/01/23 History pregabalin 200 mg capsule 200 mg PO TID 09/01/23 09/01/23 History quetiapine 25 mg tablet 75 mg PO BEDTIME 09/01/23 09/01/23 History ibuprofen 200 mg tablet 400 mg (2 x 200 mg) PO Q6H PRN 09/02/23 Rx pain #1 tab levofloxacin 750 mg tablet 750 mg PO DAILY #5 tabs 09/02/23 Rx oxycodone 5 mg tablet 10 mg PO Q4H PRN pain 09/02/23 09/02/23 History Allergies Allergy/AdvReac Type Severity Reaction Status Date / Time Penicillins [PENICILLINS] Allergy Mild Rash Verified 09/01/23 21:27 fluconazole [From DIFLUCAN] AdvReac Intermediate vomiting Verified 09/01/23 21:27 and abd pain codeine [CODEINE] AdvReac Mild NAUSEA Verified 09/01/23 21:27 Exam Vital Signs (past 8 hours): - 09/02/23 13:00 09/02/23 15:26 09/02/23 17:00 Pulse Rate 77 Respiratory Rate 18 Blood Pressure 114/61 Pulse Oximetry 95 Oxygen Delivery Method Room Air Room Air Oxygen Flow Rate 0 Fraction of Inspired Oxygen 21 SaO2/FiO2 Ratio 452 Oxygen Delivery Method Room Air Oxygen Flow Rate 0 Narrative Exam Narrative: Gen: alert, NAD Lungs: diminished on the left CV: regular Ext: no edema neuro: nl speech, affect Objective Labs 09/02/23 04:35 09/02/23 04:35 Labs: Laboratory Results - last 24 hr 09/02/23 04:35 WBC 12.4 H RBC 5.16 Hgb 14.1 Hct 43.7 MCV 84.8 MCH 27.3 MCHC 32.2 RDW 17.2 H Plt Count 302 Neut % (Auto) 68.5 Lymph % (Auto) 20.1 L [place] % (Auto) 6.4 Eos % (Auto) 3.9 Baso % (Auto) 1.1 Neut # (Auto) 8500 H Lymph # (Auto) 2500 [place] # (Auto) 800 Eos # (Auto) 500 H Baso # (Auto) 100 Sodium 138 Potassium 3.7 Chloride 103 Carbon Dioxide 31 BUN 12 Creatinine 0.71 Estimated GFR > 60 BUN/Creatinine Ratio 16.9 Glucose 90 Calcium 9.0 Total Bilirubin 0.6 AST 41 H ALT 65 H Alkaline Phosphatase 104 NT-Pro-B Natriuret Pep 66 Total Protein 7.2 Albumin 4.2 Globulin 3.0 Albumin/Globulin Ratio 1.4 Triglycerides 163 H Cholesterol 217 H LDL Cholesterol, Calc 138 H HDL Cholesterol 46 Assessment & Plan Assessment & Plan narrative: Admit and final discharge diagnoses: 1. Recurrent left pleural effusion, likely parapneumonic 2. Possible persistent left lower lobe pneumonia 3. BMI 45-49.9 4. Chronic pain 5. Esophageal thickening on chest CT Procedures: US guided thoracentesis, left lun cc of clear yellowish fluid. Post thoracentesis CT with contrast: Patient is status post left-sided thoracentesis with small amount of residual partially loculated left pleural effusion. Atelectasis versus small infiltrate scattered in posterior and medial aspect of left lower lobe. Underlying pulmonary nodule or mass cannot be entirely excluded. Follow-up until resolution is recommended. Please also correlate with aspirated fluid cytology results. 2. Scattered atelectasis in posterior medial periphery of right lower lobe. No pneumothorax. Airway is patent. 3. No enlarged mediastinal or hilar lymph nodes are seen. 4. Mildly thickened mid to distal esophageal wall extending to GE junction suggestive of esophagitis. PLAN: Pt feels better after thoracentesis Discharge on oral Levaquin x 5 days to treat for possible residual pneumonia. OTC Ibuprofen prn for pleuritic pain F/u with PCP Rec PCP to refer for outpatient EGD to evaluate esophageal thickening - pt denies reflux or dysphagia symptoms Repeat a non-contrast chest CT in 4 weeks to ensure clearing of lung abnormalities.
--- NOTE | 2023-09-02 20:58 | P.DS_ITS ---
History of Present Illness History of Present Illness Chief complaint: Chest Pain, SOB Narrative: From overnight tele hospitalist The pt is a 42 yo who was recently admitted to our service on 08/18 and was found to have a left pleural effusion that was drained, 1800cc, that appeared to be transudative. Over the past week, she has had increasing SOB, dyspnea, and pain on inspiration. She comes to the ER tonight with worsening symptoms and wheezing. Alina denies any fevers, chills, sputum production, N/V/ weight loss or night sweats. The pt quit smoking tobacco 5 years ago but still smoke marijuana daily, no vaping, She also reports that she gets pneumonia on a year basis for unknown reasons. Pt complains of left chest pain with breathing. No cough or fevers. CXR with recurrent left pleural effusion. Pt has mild leukocytosis. Discharge Providers Provider Date of admission: 09/01/23 21:14 Discharge Date: 09/02/23 Primary care physician: Eduard Arreguin, DO Discharge provider: Isaac Painter MD Summary Hospital Course Discharge Diagnosis: Admit and final discharge diagnoses: 1. Recurrent left pleural effusion, likely parapneumonic 2. Possible persistent left lower lobe pneumonia 3. BMI 45-49.9 4. Chronic pain 5. Esophageal thickening on chest CT Procedures: US guided thoracentesis, left lun cc of clear yellowish fluid. Post thoracentesis CT with contrast: Patient is status post left-sided thoracentesis with small amount of residual partially loculated left pleural effusion. Atelectasis versus small infiltrate scattered in posterior and medial aspect of left lower lobe. Underlying pulmonary nodule or mass cannot be entirely excluded. Follow-up until resolution is recommended. Please also correlate with aspirated fluid cytology results. 2. Scattered atelectasis in posterior medial periphery of right lower lobe. No pneumothorax. Airway is patent. 3. No enlarged mediastinal or hilar lymph nodes are seen. 4. Mildly thickened mid to distal esophageal wall extending to GE junction suggestive of esophagitis. PLAN: Pt feels better after thoracentesis Discharge on oral Levaquin x 5 days to treat for possible residual pneumonia. OTC Ibuprofen prn for pleuritic pain F/u with PCP Rec PCP to refer for outpatient EGD to evaluate esophageal thickening - pt denies reflux or dysphagia symptoms Repeat a non-contrast chest CT in 4 weeks to ensure clearing of lung abnormalities. Exam Vital Signs (past 8 hours): - 09/02/23 13:00 09/02/23 15:26 09/02/23 17:00 Pulse Rate 77 Respiratory Rate 18 Blood Pressure 114/61 Pulse Oximetry 95 Oxygen Delivery Method Room Air Room Air Oxygen Flow Rate 0 Fraction of Inspired Oxygen 21 SaO2/FiO2 Ratio 452 Oxygen Delivery Method Room Air Oxygen Flow Rate 0 Objective Labs 09/02/23 04:35 09/02/23 04:35 Labs: Laboratory Results - last 24 hr 09/02/23 04:35 WBC 12.4 H RBC 5.16 Hgb 14.1 Hct 43.7 MCV 84.8 MCH 27.3 MCHC 32.2 RDW 17.2 H Plt Count 302 Neut % (Auto) 68.5 Lymph % (Auto) 20.1 L [place] % (Auto) 6.4 Eos % (Auto) 3.9 Baso % (Auto) 1.1 Neut # (Auto) 8500 H Lymph # (Auto) 2500 [place] # (Auto) 800 Eos # (Auto) 500 H Baso # (Auto) 100 Sodium 138 Potassium 3.7 Chloride 103 Carbon Dioxide 31 BUN 12 Creatinine 0.71 Estimated GFR > 60 BUN/Creatinine Ratio 16.9 Glucose 90 Calcium 9.0 Total Bilirubin 0.6 AST 41 H ALT 65 H Alkaline Phosphatase 104 NT-Pro-B Natriuret Pep 66 Total Protein 7.2 Albumin 4.2 Globulin 3.0 Albumin/Globulin Ratio 1.4 Triglycerides 163 H Cholesterol 217 H LDL Cholesterol, Calc 138 H HDL Cholesterol 46 PFSH Medical History Hot flashes due to menopause Onychomycosis Chronic pain due to neoplasm Functional memory problem BMI 45.0-49.9, adult History of colon polyps Insomnia disorder, with non-sleep disorder mental comorbidity Bilateral chronic knee pain Acute pain of right knee UTI (urinary tract infection) Paget's disease of bone Obstructive sleep apnea on CPAP Lymphedema of arm Essential hypertension Major depressive disorder Abrasion, corneal Migraines Fibromyalgia (~05/2017) History of PCR DNA positive for HSV1 (~2014) Hypothyroidism (~2008) Rheumatoid arthritis Asthma Depression Irritable bowel syndrome Diverticular disease (~2015) Gestational diabetes mellitus (GDM) (10/27/14) Morbid obesity with body mass index (BMI) of 40.0 to 44.9 in adult (11/08/10) Surgical History Status post laparoscopy (01/19/16) Status post laparoscopic supracervical hysterectomy (10/23/15) Status post delivery (12/30/14) Status post tubal ligation (12/30/14) Status post surgery (07/07/12) Family History Grandmother Stroke Grandfather Heart disease Cancer Father Hypertension Mother Hypothyroidism (acquired) Social History marital status: household members: spouse and children lives independently: Yes Smoking Status: Current some day smoker alcohol intake: current substance use type: does not use Discharge Plan Discharge Plan Patient Disposition: Home Provider Discharge Comment: Next dose of levofloxacin can be tomorrow morning. Have a repeat non-contrast CT scan in 1 month to recheck area of lung abnormality Have PCP refer you for an upper endoscopy to evaluate esophageal thickening seen on CT Discharge orders & Medications Prescriptions: New levofloxacin 750 mg tablet 750 mg PO DAILY Qty: 5 0RF ibuprofen 200 mg tablet 400 mg PO Q6H PRN (Reason: pain) Qty: 1 0RF Rx Instructions: OTC Continued albuterol sulfate 2.5 mg /3 mL (0.083 %) solution for nebulization 2.5 mg INHALATION Q4-6H PRN (Reason: bronchospasm) Qty: 90 3RF duloxetine 60 mg capsule,delayed release(DR/EC) 60 mg PO DAILY Qty: 90 0RF Patient Comments: Takes at bedtime tizanidine 4 mg tablet 1 mg PO 3XD PRN (Reason: for muscle spasm) Qty: 270 1RF albuterol sulfate [Ventolin HFA] 90 mcg/actuation HFA aerosol inhaler 2 puff INHALATION Q4HP PRN (Reason: shortness of breath or wheezing) Qty: 1 5RF Rx Instructions: takes in absence of nebulizer metoprolol tartrate 25 mg tablet 25 mg PO BID Qty: 180 1RF Patient Comments: pt reports taking med at bedtime only 25 mg quetiapine 25 mg tablet 75 mg PO BEDTIME Rx Instructions: TAKE 3 TABLETS BY MOUTH EVERY NIGHT AT BEDTIME. DUE FOR APPOINTMENT amitriptyline 150 mg tablet 150 mg PO BEDTIME Patient Comments: Takes at bedtime Rx Instructions: TAKE 1 TABLET (150 MG) ORALLY DAILY AT BEDTIME levothyroxine 150 mcg tablet 150 mcg PO QAM Patient Comments: Takes at bedtime bupropion HCl 150 mg tablet extended release 24 hr 150 mg PO DAILY Patient Comments: Takes at bedtime Rx Instructions: TAKE 1 TABLET (150 MG) ORALLY DAILY pregabalin 200 mg capsule 200 mg PO TID Rx Instructions: Take 1 capsule by mouth 3 times daily oxycodone 5 mg tablet 10 mg PO Q4H PRN (Reason: pain) Follow up/Referrals: Eduard Arreguin, [Primary Care Provider] - Diet/Activity/Treatments Diet: Regular Visit Report/Discharge Packet Instructions: DI for Shortness of Breath Stand Alone Forms: Patient Portal/API, Stroke Signs & Symptoms Discharge Data Primary Care Provider: Eduard Arreguin Attending Provider: Marvel Steven Admit Date/Time: 09/01/23 21:14
== END 2023-09-02 19:25 | disposition home or self-care (01) ==
LOC: ED 21:14 → AC 09-02 09:40
PROVIDERS: Emergency Medicine; Admitting Provider Internal Medicine; Emergency Provider Emergency Medicine; PCP Family Medicine; Referring Provider Emergency Medicine; Visit Provider Internal Medicine
DX: J90 Pleural effusion, not elsewhere classified (principal); R93.3 Abnormal findings on diagnostic imaging of other parts of digestive tract; D72.829 Elevated white blood cell count, unspecified; Z87.891 Personal history of nicotine dependence
CPT/HCPCS: 32555; 36415; 71045; 71260; 80053; 80061; 82550; 83605; 83690; 83735; 83880; 84145; 84484; 85025; 85610; 85730; 87040; 93005; 96365; 96372; 96375; 96376; 99285; G0378; J1650; J1885; J1956; J2270; J7613; Q9967

== ENCOUNTER 2023-09-17 14:39 | Observation (INO) | payer OTHER, MEDICAID, SELFPAY ==
[2023-09-02 06:36] VITALS: BMI 44.9
[2023-09-17] VITALS (27 sets, daily range): BP systolic 153–188; BP diastolic 81–116; PULSE 90–108; RESP 13–31; TEMP 36.2–37.1; O2SAT 90–99; BMI 44.9
--- NOTE | 2023-09-17 14:53 | DI.RAD.S_ITS ---
PROCEDURE: XR CHEST 1V INDICATIONS: Shortness of breath TECHNIQUE: One view of the chest was acquired. COMPARISON: [facility], CR, XR CHEST 1V, 09/01/2023, 18:17. FINDINGS: Surgical changes and devices: None. Lungs and pleura: Increased moderate to large left pleural effusion. Mild right basilar airspace opacity. Mediastinum: Mediastinal contours appear normal. Heart size is normal. Bones and chest wall: No suspicious bony lesions. Overlying soft tissues appear unremarkable. IMPRESSION: 1. Right base atelectasis versus pneumonia. 2. Increased moderate to large left pleural effusion. Dictated by: Humza Brothers M.D. on 09/17/2023 at 16:06 Approved by: Hmuza Brothers M.D. on 09/17/2023 at 16:10
[2023-09-17 15:18] LABS: Add Manual Diff / Slide Review NO; Basophils Absolute Auto 100 /uL (0-100); Eosinophils Absolute Auto 300 /uL (0-450); Eosinophils Percent Auto 2.8 % (2-4); Hematocrit 45.7 % (36-46); Hemoglobin 15.2 g/dL (12.0-16.0); Lymphocytes Absolute Auto 1100 /uL (1100-4500); Lymphocytes Percent Auto 9.3 % (25-40); Mean Corpuscular HGB Conc 33.2 % (30-36); Mean Corpuscular Hemoglobin 27.9 PG (26-34); Mean Corpuscular Volume 83.8 fL (80-100); Monocytes Absolute Auto 800 /uL (0-900); Monocytes Percent Auto 7.2 % (3-14); Neutrophils Absolute Auto 9000 /uL (1500-7000); Neutrophils Percent Auto 79.7 % (50-75); Platelet Count 296 X10^3/uL (150-400); Red Blood Cell Count 5.46 X10^6/uL (4.0-5.2); Red Cell Distribution Width 17.2 % (11.6-14.8); White Blood Cell Count 11.3 X10^3/uL (4.5-11.0)
--- NOTE | 2023-09-17 15:20 | ED.GENADULT ---
HPI - General Adult <Marvel Coy DO - Last Filed: 09/23/23 18:00> General Chief complaint: Shortness of Breath/Dyspnea Stated complaint: fluid retention per pt Time Seen by Provider: 09/17/23 14:49 Source: patient Mode of arrival: Ambulatory History of Present Illness HPI narrative: Patient is a 42-year-old female who I evaluated personally 2 weeks ago and admitted to the hospital for thoracentesis after recurrent left-sided pleural effusion. At that time this was the 2nd time in as many weeks that she had a thoracentesis. Initially the samples were transudative. Both time she was treated with antibiotics. It appears that the 2nd procedure did not include any cytology or fluid studies. She states that after the procedure she was feeling quite better however since that time she has had progressively worsening shortness of breath to especially the past couple days where she is short of breath with any sort of exertion. She had a follow-up today with her primary doctor who found the patient to be tachypneic and hypoxic and was sent to the emergency department for evaluation. Patient denies any cough. Some chest discomfort because of the shortness of breath. No abdominal pain, fevers, nausea vomiting, change in bowel habits, lower extremity swelling. She does have nebulizers at home that she has been using without much improvement. Related Data Home Medications Medication Instructions Recorded Confirmed amitriptyline 150 mg tablet 150 mg PO BEDTIME 09/01/23 09/17/23 bupropion HCl 150 mg 24 hr tablet, 150 mg PO DAILY 09/01/23 09/17/23 extended release levothyroxine 150 mcg tablet 150 mcg PO QAM 09/01/23 09/17/23 pregabalin 200 mg capsule 200 mg PO TID 09/01/23 09/17/23 quetiapine 25 mg tablet 75 mg PO BEDTIME 09/01/23 09/17/23 oxycodone 5 mg tablet 10 mg PO Q4H PRN pain 09/02/23 09/17/23 Previous Rx's Medication Instructions Recorded albuterol sulfate 2.5 mg/3 mL 2.5 mg (3 mL) inhalation Q4-6H PRN 11/01/20 (0.083 %) solution for nebulization bronchospasm #90 mL duloxetine 60 mg capsule,delayed 60 mg PO DAILY #90 caps 07/25/23 release tizanidine 4 mg tablet 1 mg (1/4 x 4 mg) PO 3XD PRN for 07/29/23 muscle spasm #270 tabs albuterol sulfate 90 mcg/actuation 2 puff inhalation Q4HP PRN 08/01/23 aerosol inhaler (Ventolin HFA) shortness of breath or wheezing #1 ea ibuprofen 200 mg tablet 400 mg (2 x 200 mg) PO Q6H PRN 09/02/23 pain #1 tab metoprolol tartrate 25 mg tablet 25 mg PO BID #180 tabs 09/10/23 ibuprofen 200 mg tablet (Motrin IB) 400 mg (2 x 200 mg) PO Q8H PRN 09/18/23 pain (scale score 4-6) #30 tabs trazodone 50 mg tablet 50 mg PO BEDTIME PRN sleep #30 tabs 09/18/23 Allergies Allergy/AdvReac Type Severity Reaction Status Date / Time Penicillins [PENICILLINS] Allergy Mild Rash Verified 09/17/23 14:53 fluconazole [From DIFLUCAN] AdvReac Intermediate vomiting Verified 09/17/23 14:53 and abd pain codeine [CODEINE] AdvReac Mild NAUSEA Verified 09/17/23 14:53 Review of Systems <Marvel Coy DO - Last Filed: 09/23/23 18:00> Review of Systems ROS Unobtainable: All systems reviewed & are unremarkable except as noted in HPI and below Patient History <Marvel Coy DO - Last Filed: 09/23/23 18:00> Medical History Hot flashes due to menopause Onychomycosis Chronic pain due to neoplasm Functional memory problem BMI 45.0-49.9, adult History of colon polyps Insomnia disorder, with non-sleep disorder mental comorbidity Bilateral chronic knee pain Acute pain of right knee UTI (urinary tract infection) Paget's disease of bone Obstructive sleep apnea on CPAP Lymphedema of arm Essential hypertension Major depressive disorder Abrasion, corneal Migraines Fibromyalgia (~05/2017) History of PCR DNA positive for HSV1 (~2014) Hypothyroidism (~2008) Rheumatoid arthritis Asthma Depression Irritable bowel syndrome Diverticular disease (~2015) Gestational diabetes mellitus (GDM) (10/27/14) Morbid obesity with body mass index (BMI) of 40.0 to 44.9 in adult (11/08/10) Surgical History Status post laparoscopy (01/19/16) Status post laparoscopic supracervical hysterectomy (10/23/15) Status post delivery (12/30/14) Status post tubal ligation (12/30/14) Status post surgery (07/07/12) Family History Grandmother Stroke Grandfather Heart disease Cancer Father Hypertension Mother Hypothyroidism (acquired) Social History marital status: household members: spouse and children lives independently: Yes Smoking Status: Former smoker alcohol intake: current substance use type: does not use Smoking Status: Former smoker tobacco type: cigarettes and vaping alcohol intake frequency: holidays/special occasions only Substance Use Type: marijuana Exam <Marvel Coy DO - Last Filed: 09/23/23 18:00> Initial Vital Signs Initial Vital Signs: Vital Signs Temperature 98.7 F 09/17/23 14:41 Pulse Rate 107 H 09/17/23 14:41 Respiratory Rate 17 09/17/23 14:41 Blood Pressure 167/101 H 09/17/23 14:41 Pulse Oximetry 96 09/17/23 14:41 Oxygen Delivery Method Room Air 09/17/23 14:41 Const General: cooperative and comfortable HENMT Head: normal to inspection Resp Effort & Inspection: no cough, labored, no retractions and tachypneic Auscultation: diminished lung sounds on the left and wheezes Cardio Rate: tachycardic Rhythm: regular rhythm GI Inspection: normal to inspection and non-distended Skin General: no rashes or lesions noted Neuro General: patient alert, patient awake and moves all extremities Extrem General: No edema <Livia Mejia MD - Last Filed: 09/17/23 19:44> Initial Vital Signs Initial Vital Signs: Vital Signs Temperature 98.7 F 09/17/23 14:41 Pulse Rate 107 H 09/17/23 14:41 Respiratory Rate 17 09/17/23 14:41 Blood Pressure 167/101 H 09/17/23 14:41 Pulse Oximetry 96 09/17/23 14:41 Oxygen Delivery Method Room Air 09/17/23 14:41 Course <Marvel Coy DO - Last Filed: 09/23/23 18:00> Orders Ordered: Discontinued Medications Acetaminophen (Acetaminophen 325 Mg Tablet) 650 mg PO Q6H PRN PRN Reason: Fever/Mild Pain (1-3) Albuterol (Albuterol 2.5 Mg/3 Ml Neb (Adult)) 5 mg INH NOW ONE Stop: 09/17/23 15:20 Last Admin: 09/17/23 15:38 Dose: 5 mg Documented By: PALMER Albuterol (Albuterol 2.5 Mg/3 Ml Neb (Adult)) 2.5 mg INH NOW ONE Stop: 09/17/23 19:38 Last Admin: 09/17/23 19:41 Dose: 2.5 mg Documented By: GERONIMO Albuterol (Albuterol 2.5 Mg/3 Ml Neb (Adult)) 2.5 mg INH Q4H PRN PRN Reason: bronchospasm Albuterol (Albuterol 2.5 Mg/3 Ml Neb (Adult)) 2.5 mg INH [id number] PRN PRN Reason: Dyspnea Albuterol/Ipratropium (Albuterol/Ipratropium 3 Ml Ampul) 3 ml INH Q20M OTTONIEL Stop: 09/17/23 16:56 Last Admin: 09/17/23 17:56 Dose: 3 ml Documented By: Admin: 09/17/23 17:30 Dose: 3 ml Documented By: Admin: 09/17/23 16:04 Dose: 3 ml Documented By: PALMER Amitriptyline HCl (Amitriptyline 25 Mg Tablet) 150 mg PO BEDTIME [facility] Last Admin: 09/17/23 22:42 Dose: 150 mg Documented By: JULISSA Benzocaine (Benzocaine/Menthol 1 Yocasta Pkt) 1 each PO Q4HR PRN PRN Reason: Sore Throat Benzonatate (Benzonatate 100 Mg Capsule) 100 mg PO TID PRN PRN Reason: Cough Bisacodyl (Bisacodyl 10 Mg Supp) 10 mg NM DAILY PRN PRN Reason: Constipation Bupropion HCl (Bupropion Xl 150 Mg Tab) 150 mg PO DAILY [facility] Last Admin: 09/18/23 08:28 Dose: 150 mg Documented By: VERONICA Duloxetine HCl (Duloxetine 30 Mg Capsule) 60 mg PO DAILY [facility] Last Admin: 09/18/23 08:29 Dose: 60 mg Documented By: VERONICA Hydralazine HCl (Hydralazine 20 Mg/Ml Vial) 10 mg IV Q6HR PRN PRN Reason: SBP>= 160 or DBP >=110 Hydromorphone HCl (Hydromorphone 0.5 Mg Inj) 0.5 mg IV Q2H PRN PRN Reason: Pain, Severe (7-10) Last Admin: 09/18/23 03:57 Dose: 0.5 mg Documented By: Admin: 09/17/23 22:37 Dose: 0.5 mg Documented By: GEORGE Levothyroxine Sodium (Levothyroxine 75 Mcg Tablet) 150 mcg PO 0600 [facility] Last Admin: 09/18/23 06:21 Dose: 150 mcg Documented By: JULISSA Lorazepam (Lorazepam 2 Mg/Ml Inj) 0.25 mg IV Q4HR PRN PRN Reason: Anxiety Melatonin (Melatonin 3 Mg Tablet) 9 mg PO BEDTIME PRN PRN Reason: insomnia Methylprednisolone (Methylprednisolone 125 Mg/2 Ml Vial) 125 mg IV NOW ONE Stop: 09/17/23 19:38 Last Admin: 09/17/23 19:41 Dose: 125 mg Documented By: GERONIMO Metoprolol Tartrate (Metoprolol Ir 25 Mg Tablet) 25 mg PO BID [facility] Last Admin: 09/18/23 08:29 Dose: 25 mg Documented By: Admin: 09/17/23 22:42 Dose: 25 mg Documented By: JULISSA Morphine Sulfate (Morphine 4 Mg/Ml Inj) 4 mg IV NOW ONE Stop: 09/17/23 17:27 Last Admin: 09/17/23 17:34 Dose: 4 mg Documented By: Morphine Sulfate (Morphine 4 Mg/Ml Inj) 4 mg IV NOW ONE Stop: 09/17/23 19:33 Last Admin: 09/17/23 19:42 Dose: 4 mg Documented By: GERONIMO Naloxone HCl (Naloxone 0.4 Mg/Ml Vial) 0.2 mg IV Q2MIN PRN PRN Reason: Opiate Reversal Ondansetron HCl (Ondansetron 4 Mg/2 Ml Inj) 4 mg IV Q8HR PRN PRN Reason: Nausea And Vomiting Oxycodone HCl (Oxycodone Ir 5 Mg Tablet) 10 mg PO Q4H PRN PRN Reason: pain Last Admin: 09/18/23 08:29 Dose: 10 mg Documented By: VERONICA Pregabalin (Pregabalin 50 Mg Capsule) 200 mg PO TID [facility] Last Admin: 09/18/23 08:28 Dose: 200 mg Documented By: Admin: 09/17/23 22:41 Dose: 200 mg Documented By: JULISSA Quetiapine Fumarate (Quetiapine 25 Mg Tablet) 75 mg PO BEDTIME [facility] Last Admin: 09/17/23 22:42 Dose: 75 mg Documented By: JULISSA Tizanidine HCl (Tizanidine 4 Mg Tablet) 1 mg PO TID PRN PRN Reason: MUSCLE SPASMS Vital Signs Vital signs: Vital Signs - 8 hr 09/17/23 14:41 09/17/23 14:47 09/17/23 14:50 Temperature 98.7 F Pulse Rate 107 H 103 H Respiratory Rate 17 Blood Pressure 167/101 H 167/101 H Pulse Oximetry 96 94 Oxygen Delivery Method Room Air Oxygen Flow Rate 09/17/23 14:50 09/17/23 15:00 09/17/23 15:00 Temperature Pulse Rate 108 H 104 H Respiratory Rate 24 Blood Pressure 175/112 H Pulse Oximetry 92 91 Oxygen Delivery Method Room Air Oxygen Flow Rate 09/17/23 15:09 09/17/23 15:30 09/17/23 15:30 Temperature Pulse Rate 101 H Respiratory Rate 25 H Blood Pressure 177/105 H Pulse Oximetry 94 93 Oxygen Delivery Method Nasal Cannula Nasal Cannula Oxygen Flow Rate 2 2 09/17/23 16:00 09/17/23 16:00 09/17/23 16:30 Temperature Pulse Rate 98 H Respiratory Rate 31 H Blood Pressure 182/102 H 188/97 H Pulse Oximetry 90 L Oxygen Delivery Method Oxygen Flow Rate 09/17/23 16:30 09/17/23 16:40 09/17/23 16:40 Temperature Pulse Rate 99 H 98 H Respiratory Rate 25 H 13 Blood Pressure 166/92 H Pulse Oximetry 92 92 Oxygen Delivery Method Oxygen Flow Rate 09/17/23 16:45 09/17/23 16:45 09/17/23 16:50 Temperature Pulse Rate 98 H Respiratory Rate 26 H Blood Pressure 171/97 H 169/96 H Pulse Oximetry 93 Oxygen Delivery Method Oxygen Flow Rate 09/17/23 16:50 09/17/23 17:00 09/17/23 17:01 Temperature Pulse Rate 97 H 98 H Respiratory Rate 28 H 16 Blood Pressure 172/115 H Pulse Oximetry 93 93 Oxygen Delivery Method Oxygen Flow Rate 09/17/23 17:01 09/17/23 17:05 09/17/23 17:05 Temperature Pulse Rate 97 H 97 H Respiratory Rate 20 17 Blood Pressure 182/116 H Pulse Oximetry 92 93 Oxygen Delivery Method Oxygen Flow Rate 09/17/23 17:10 09/17/23 17:10 09/17/23 17:15 Temperature Pulse Rate 95 H Respiratory Rate 17 Blood Pressure 168/106 H 187/109 H Pulse Oximetry 92 Oxygen Delivery Method Oxygen Flow Rate 09/17/23 17:15 09/17/23 17:20 09/17/23 17:20 Temperature Pulse Rate 95 H 94 H Respiratory Rate 22 Blood Pressure 170/101 H Pulse Oximetry 93 91 Oxygen Delivery Method Room Air Oxygen Flow Rate 09/17/23 17:30 09/17/23 17:30 09/17/23 17:56 Temperature Pulse Rate 96 H Respiratory Rate 17 Blood Pressure 181/106 H 167/89 H Pulse Oximetry 94 Oxygen Delivery Method Oxygen Flow Rate 09/17/23 17:56 09/17/23 17:58 09/17/23 18:00 Temperature Pulse Rate 96 H 106 H 94 H Respiratory Rate Blood Pressure Pulse Oximetry 94 99 Oxygen Delivery Method Oxygen Flow Rate 09/17/23 18:00 09/17/23 18:30 09/17/23 18:30 Temperature Pulse Rate 93 H Respiratory Rate 24 Blood Pressure 153/87 H 157/94 H Pulse Oximetry 91 Oxygen Delivery Method Oxygen Flow Rate <Livia Mejia MD - Last Filed: 09/17/23 19:44> Orders Ordered: Discontinued Medications Acetaminophen (Acetaminophen 325 Mg Tablet) 650 mg PO Q6H PRN PRN Reason: Fever/Mild Pain (1-3) Albuterol (Albuterol 2.5 Mg/3 Ml Neb (Adult)) 5 mg INH NOW ONE Stop: 09/17/23 15:20 Last Admin: 09/17/23 15:38 Dose: 5 mg Documented By: PALMER Albuterol (Albuterol 2.5 Mg/3 Ml Neb (Adult)) 2.5 mg INH NOW ONE Stop: 09/17/23 19:38 Last Admin: 09/17/23 19:41 Dose: 2.5 mg Documented By: GERONIMO Albuterol (Albuterol 2.5 Mg/3 Ml Neb (Adult)) 2.5 mg INH Q4H PRN PRN Reason: bronchospasm Albuterol (Albuterol 2.5 Mg/3 Ml Neb (Adult)) 2.5 mg INH [id number] PRN PRN Reason: Dyspnea Albuterol/Ipratropium (Albuterol/Ipratropium 3 Ml Ampul) 3 ml INH Q20M [facility] Stop: 09/17/23 16:56 Last Admin: 09/17/23 17:56 Dose: 3 ml Documented By: Admin: 09/17/23 17:30 Dose: 3 ml Documented By: Admin: 09/17/23 16:04 Dose: 3 ml Documented By: PALMER Amitriptyline HCl (Amitriptyline 25 Mg Tablet) 150 mg PO BEDTIME [facility] Last Admin: 09/17/23 22:42 Dose: 150 mg Documented By: JULISSA Benzocaine (Benzocaine/Menthol 1 Yocasta Pkt) 1 each PO Q4HR PRN PRN Reason: Sore Throat Benzonatate (Benzonatate 100 Mg Capsule) 100 mg PO TID PRN PRN Reason: Cough Bisacodyl (Bisacodyl 10 Mg Supp) 10 mg NM DAILY PRN PRN Reason: Constipation Bupropion HCl (Bupropion Xl 150 Mg Tab) 150 mg PO DAILY [facility] Last Admin: 09/18/23 08:28 Dose: 150 mg Documented By: VERONICA Duloxetine HCl (Duloxetine 30 Mg Capsule) 60 mg PO DAILY [facility] Last Admin: 09/18/23 08:29 Dose: 60 mg Documented By: VERONICA Hydralazine HCl (Hydralazine 20 Mg/Ml Vial) 10 mg IV Q6HR PRN PRN Reason: SBP>= 160 or DBP >=110 Hydromorphone HCl (Hydromorphone 0.5 Mg Inj) 0.5 mg IV Q2H PRN PRN Reason: Pain, Severe (7-10) Last Admin: 09/18/23 03:57 Dose: 0.5 mg Documented By: Admin: 09/17/23 22:37 Dose: 0.5 mg Documented By: GEORGE Levothyroxine Sodium (Levothyroxine 75 Mcg Tablet) 150 mcg PO 0600 [facility] Last Admin: 09/18/23 06:21 Dose: 150 mcg Documented By: JULISSA Lorazepam (Lorazepam 2 Mg/Ml Inj) 0.25 mg IV Q4HR PRN PRN Reason: Anxiety Melatonin (Melatonin 3 Mg Tablet) 9 mg PO BEDTIME PRN PRN Reason: insomnia Methylprednisolone (Methylprednisolone 125 Mg/2 Ml Vial) 125 mg IV NOW ONE Stop: 09/17/23 19:38 Last Admin: 09/17/23 19:41 Dose: 125 mg Documented By: GERONIMO Metoprolol Tartrate (Metoprolol Ir 25 Mg Tablet) 25 mg PO BID [facility] Last Admin: 09/18/23 08:29 Dose: 25 mg Documented By: Admin: 09/17/23 22:42 Dose: 25 mg Documented By: JULISSA Morphine Sulfate (Morphine 4 Mg/Ml Inj) 4 mg IV NOW ONE Stop: 09/17/23 17:27 Last Admin: 09/17/23 17:34 Dose: 4 mg Documented By: BRANDI Morphine Sulfate (Morphine 4 Mg/Ml Inj) 4 mg IV NOW ONE Stop: 09/17/23 19:33 Last Admin: 09/17/23 19:42 Dose: 4 mg Documented By: GERONIMO Naloxone HCl (Naloxone 0.4 Mg/Ml Vial) 0.2 mg IV Q2MIN PRN PRN Reason: Opiate Reversal Ondansetron HCl (Ondansetron 4 Mg/2 Ml Inj) 4 mg IV Q8HR PRN PRN Reason: Nausea And Vomiting Oxycodone HCl (Oxycodone Ir 5 Mg Tablet) 10 mg PO Q4H PRN PRN Reason: pain Last Admin: 09/18/23 08:29 Dose: 10 mg Documented By: VERONICA Pregabalin (Pregabalin 50 Mg Capsule) 200 mg PO TID [facility] Last Admin: 09/18/23 08:28 Dose: 200 mg Documented By: Admin: 09/17/23 22:41 Dose: 200 mg Documented By: JULISSA Quetiapine Fumarate (Quetiapine 25 Mg Tablet) 75 mg PO BEDTIME [facility] Last Admin: 09/17/23 22:42 Dose: 75 mg Documented By: JULISSA Tizanidine HCl (Tizanidine 4 Mg Tablet) 1 mg PO TID PRN PRN Reason: MUSCLE SPASMS Vital Signs Vital signs: Vital Signs - 8 hr 09/17/23 14:41 09/17/23 14:47 09/17/23 14:50 Temperature 98.7 F Pulse Rate 107 H 103 H Respiratory Rate 17 Blood Pressure 167/101 H 167/101 H Pulse Oximetry 96 94 Oxygen Delivery Method Room Air Oxygen Flow Rate 09/17/23 14:50 09/17/23 15:00 09/17/23 15:00 Temperature Pulse Rate 108 H 104 H Respiratory Rate 24 Blood Pressure 175/112 H Pulse Oximetry 92 91 Oxygen Delivery Method Room Air Oxygen Flow Rate 09/17/23 15:09 09/17/23 15:30 09/17/23 15:30 Temperature Pulse Rate 101 H Respiratory Rate 25 H Blood Pressure 177/105 H Pulse Oximetry 94 93 Oxygen Delivery Method Nasal Cannula Nasal Cannula Oxygen Flow Rate 2 2 09/17/23 16:00 09/17/23 16:00 09/17/23 16:30 Temperature Pulse Rate 98 H Respiratory Rate 31 H Blood Pressure 182/102 H 188/97 H Pulse Oximetry 90 L Oxygen Delivery Method Oxygen Flow Rate 09/17/23 16:30 09/17/23 16:40 09/17/23 16:40 Temperature Pulse Rate 99 H 98 H Respiratory Rate 25 H 13 Blood Pressure 166/92 H Pulse Oximetry 92 92 Oxygen Delivery Method Oxygen Flow Rate 09/17/23 16:45 09/17/23 16:45 09/17/23 16:50 Temperature Pulse Rate 98 H Respiratory Rate 26 H Blood Pressure 171/97 H 169/96 H Pulse Oximetry 93 Oxygen Delivery Method Oxygen Flow Rate 09/17/23 16:50 09/17/23 17:00 09/17/23 17:01 Temperature Pulse Rate 97 H 98 H Respiratory Rate 28 H 16 Blood Pressure 172/115 H Pulse Oximetry 93 93 Oxygen Delivery Method Oxygen Flow Rate 09/17/23 17:01 09/17/23 17:05 09/17/23 17:05 Temperature Pulse Rate 97 H 97 H Respiratory Rate 20 17 Blood Pressure 182/116 H Pulse Oximetry 92 93 Oxygen Delivery Method Oxygen Flow Rate 09/17/23 17:10 09/17/23 17:10 09/17/23 17:15 Temperature Pulse Rate 95 H Respiratory Rate 17 Blood Pressure 168/106 H 187/109 H Pulse Oximetry 92 Oxygen Delivery Method Oxygen Flow Rate 09/17/23 17:15 09/17/23 17:20 09/17/23 17:20 Temperature Pulse Rate 95 H 94 H Respiratory Rate 22 Blood Pressure 170/101 H Pulse Oximetry 93 91 Oxygen Delivery Method Room Air Oxygen Flow Rate 09/17/23 17:30 09/17/23 17:30 09/17/23 17:56 Temperature Pulse Rate 96 H Respiratory Rate 17 Blood Pressure 181/106 H 167/89 H Pulse Oximetry 94 Oxygen Delivery Method Oxygen Flow Rate 09/17/23 17:56 09/17/23 17:58 09/17/23 18:00 Temperature Pulse Rate 96 H 106 H 94 H Respiratory Rate Blood Pressure Pulse Oximetry 94 99 Oxygen Delivery Method Oxygen Flow Rate 09/17/23 18:00 09/17/23 18:30 09/17/23 18:30 Temperature Pulse Rate 93 H Respiratory Rate 24 Blood Pressure 153/87 H 157/94 H Pulse Oximetry 91 Oxygen Delivery Method Oxygen Flow Rate Medical Decision Making <Marvel Coy DO - Last Filed: 09/23/23 18:00> Lab Data Lab results reviewed: Yes I reviewed the patient's lab results. 09/17/23 15:06 09/18/23 05:50 Labs: Lab Results 09/17/23 09/17/23 09/17/23 Range/Units 15:06 15:06 16:44 WBC 11.3 H (4.5-11.0) X10^3/uL RBC 5.46 H (4.0-5.2) X10^6/uL Hgb 15.2 (12.0-16.0) g/dL Hct 45.7 (36-46) % MCV 83.8 (80-100) fL MCH 27.9 (26-34) PG MCHC 33.2 (30-36) % RDW 17.2 H (11.6-14.8) % Plt Count 296 (150-400) X10^3/uL Neut % (Auto) 79.7 H (50-75) % Lymph % (Auto) 9.3 L (25-40) % Scott % (Auto) 7.2 (3-14) % Eos % (Auto) 2.8 (2-4) % Baso % (Auto) 1.0 (0-2) % Neut # (Auto) 9000 H (3516-7827) /uL Lymph # (Auto) 1100 (8496-8503) /uL Scott # (Auto) 800 (0-900) /uL Eos # (Auto) 300 (0-450) /uL Baso # (Auto) 100 (0-100) /uL PT 12.2 (9.4-12.5) SECONDS INR 1.1 (0.9-1.3) Sodium 139 (137-145) mmol/L Potassium 4.2 (3.4-5.1) mmol/L Chloride 104 (98-107) mmol/L Carbon Dioxide 28 (22-32) mmol/L BUN 14 (7-17) mg/dL Creatinine 0.82 (0.52-1.04) mg/dL Estimated GFR > 60 (>60) mL/min BUN/Creatinine Ratio 17.1 (6-22) Glucose 88 (70-100) mg/dL Lactate 1.2 (0.7-2.1) mmol/L Calcium 9.8 (8.4-10.2) mg/dL Total Bilirubin 0.8 (0.2-1.3) mg/dL AST 19 (14-36) IU/L ALT 13 (<35) IU/L Alkaline Phosphatase 105 (38-126) U/L Total Creatine Kinase 43 (30-135) U/L Troponin I Cancelled < 0.012 NT-Pro-B Natriuret Pep 902 H (<125) pg/mL Total Protein 8.0 (6.3-8.2) g/dL Albumin 4.7 (3.5-5.0) g/dL Globulin 3.3 (1.7-4.1) g/dL Albumin/Globulin Ratio 1.4 (1.0-2.8) Lipase 40 (23-300) U/L Fluid Color Yellow Fluid Appearance Clear Fluid RBC 374 /uL Fld Tot Nucleated Cell 326 /uL Fluid Neutrophils % 5 Fluid Lymphocytes % 51 % Fluid Eosinophils % 19 % Fluid Meso/Macro/Scott % 25 % Body Fluid Clot No clots present Fluid Total Protein 3.8 (.) g/dL Fluid LDH 126 (.) IU/L Imaging Data Chest x-ray: Radiologist's Impression: PROCEDURE: XR CHEST 1V INDICATIONS: Shortness of breath TECHNIQUE: One view of the chest was acquired. COMPARISON: [facility], CR, XR CHEST 1V, 09/01/2023, 18:17. FINDINGS: Surgical changes and devices: None. Lungs and pleura: Increased moderate to large left pleural effusion. Mild right basilar airspace opacity. Mediastinum: Mediastinal contours appear normal. Heart size is normal. Bones and chest wall: No suspicious bony lesions. Overlying soft tissues appear unremarkable. IMPRESSION: 1. Right base atelectasis versus pneumonia. 2. Increased moderate to large left pleural effusion. Repeat chest x-ray: Radiologist's Impression: PROCEDURE: XR CHEST 1V INDICATIONS: post-thoracentesis TECHNIQUE: One view of the chest was acquired. COMPARISON: [facility], CT, CT CHEST W CON, 09/02/2023, 10:24. [facility], CR, XR CHEST 1V, 09/01/2023, 18:17. [facility], CR, XR CHEST 1V, 09/17/2023, 15:08. FINDINGS: Surgical changes and devices: None. Lungs and pleura: No pneumothorax. Left pleural effusion is decreased. Left basilar atelectasis. Increased pulmonary vascularity. Mediastinum: Mediastinal contours appear normal. Heart size is mildly enlarged. Bones and chest wall: No suspicious bony lesions. Overlying soft tissues appear unremarkable. IMPRESSION: No pneumothorax. Thoracentesis ultrasound: Radiologist's Impression: PROCEDURE: US THORACENTESIS INDICATIONS: Pleural effusion TECHNIQUE: The indications, alternatives, benefits, risks, and complications of the procedure were explained to the patient. Written informed consent was obtained and placed in the chart. The chest was examined sonographically, and an appropriate site was chosen for thoracentesis. The skin was prepared and draped in the usual sterile fashion, and 1% lidocaine was infiltrated from the skin down through the pleural surface. A 19-gauge catheter-covered needle was then introduced into the pleural space, the catheter was advanced and the needle was withdrawn, and thereafter pleural fluid was aspirated. The catheter was then removed and a dressing was applied. COMPARISON: [facility], CT, CT CHEST W CON, 09/02/2023, 10:24. [facility], US THORACENTESIS, 09/02/2023, 9:36. [facility], US THORACENTESIS, 08/21/2023, 8:53. FINDINGS: Access site: Right hemithorax. Needle: One-Step centesis catheter with introducer needle. Fluid volume and description: 1400 cc; clear Fluid sent for diagnostic testing: Per referring physician Medications: 1% lidocaine for local anaesthesia. Complications: None; post-procedural chest radiograph is pending to assess for pneumothorax. IMPRESSION: Successful ultrasound-guided thoracentesis ECG Data Interpretation: Sinus tachycardia Ventricular rate 102 Normal axis Normal QRS Normal QTC No ST T wave changes MDM Narrative Medical decision making narrative: Patient with recurrent left-sided pleural effusion. This is the 3rd pleural effusion in the past month. I did discuss the case with Dr. Han with pulmonology who stated that he did not feel that without a definitive diagnosis CT surgery would do any sort of intervention. He asked for thoracentesis during this visit. Patient did have a thoracentesis done by Radiology. Return to 1400 cc of fluid. Labs ordered per pulmonology recommendation. Patient states she was feeling somewhat better however with getting up and ambulating she did become hypoxic and tachycardic. I discuss the case with Dr. Alfred hospitalist on-call. We will observe here in the emergency department for short time longer to see if she improves and if not patient will be admitted for observation. Care turned over to Dr. Mejia to follow-up and disposition. <Livia Mejia MD - Last Filed: 09/17/23 19:44> Lab Data Labs: Lab Results 09/17/23 09/17/23 09/17/23 Range/Units 15:06 15:06 16:44 WBC 11.3 H (4.5-11.0) X10^3/uL RBC 5.46 H (4.0-5.2) X10^6/uL Hgb 15.2 (12.0-16.0) g/dL Hct 45.7 (36-46) % MCV 83.8 (80-100) fL MCH 27.9 (26-34) PG MCHC 33.2 (30-36) % RDW 17.2 H (11.6-14.8) % Plt Count 296 (150-400) X10^3/uL Neut % (Auto) 79.7 H (50-75) % Lymph % (Auto) 9.3 L (25-40) % Scott % (Auto) 7.2 (3-14) % Eos % (Auto) 2.8 (2-4) % Baso % (Auto) 1.0 (0-2) % Neut # (Auto) 9000 H (5146-5459) /uL Lymph # (Auto) 1100 (0085-5069) /uL Scott # (Auto) 800 (0-900) /uL Eos # (Auto) 300 (0-450) /uL Baso # (Auto) 100 (0-100) /uL PT 12.2 (9.4-12.5) SECONDS INR 1.1 (0.9-1.3) Sodium 139 (137-145) mmol/L Potassium 4.2 (3.4-5.1) mmol/L Chloride 104 (98-107) mmol/L Carbon Dioxide 28 (22-32) mmol/L BUN 14 (7-17) mg/dL Creatinine 0.82 (0.52-1.04) mg/dL Estimated GFR > 60 (>60) mL/min BUN/Creatinine Ratio 17.1 (6-22) Glucose 88 (70-100) mg/dL Lactate 1.2 (0.7-2.1) mmol/L Calcium 9.8 (8.4-10.2) mg/dL Total Bilirubin 0.8 (0.2-1.3) mg/dL AST 19 (14-36) IU/L ALT 13 (<35) IU/L Alkaline Phosphatase 105 (38-126) U/L Total Creatine Kinase 43 (30-135) U/L Troponin I Cancelled < 0.012 NT-Pro-B Natriuret Pep 902 H (<125) pg/mL Total Protein 8.0 (6.3-8.2) g/dL Albumin 4.7 (3.5-5.0) g/dL Globulin 3.3 (1.7-4.1) g/dL Albumin/Globulin Ratio 1.4 (1.0-2.8) Lipase 40 (23-300) U/L Fluid Color Yellow Fluid Appearance Clear Fluid RBC 374 /uL Fld Tot Nucleated Cell 326 /uL Fluid Neutrophils % 5 Fluid Lymphocytes % 51 % Fluid Eosinophils % 19 % Fluid Meso/Macro/Scott % 25 % Body Fluid Clot No clots present Fluid Total Protein 3.8 (.) g/dL Fluid LDH 126 (.) IU/L MDM Narrative Medical decision making narrative: Patient with recurrent left-sided pleural effusion. This is the 3rd pleural effusion in the past month. I did discuss the case with Dr. Han with pulmonology who stated that he did not feel that without a definitive diagnosis CT surgery would do any sort of intervention. He asked for thoracentesis during this visit. Patient did have a thoracentesis done by Radiology. Return to 1400 cc of fluid. Labs ordered per pulmonology recommendation. Patient states she was feeling somewhat better however with getting up and ambulating she did become hypoxic and tachycardic. I discuss the case with Dr. Alfred hospitalist on-call. We will observe here in the emergency department for short time longer to see if she improves and if not patient will be admitted for observation. Care turned over to Dr. Mejia to follow-up and disposition. 730pm Dr Mejia care is assumed. Patient is seen and evaluated independently. Workup is reviewed. With walking trial, she is significantly dyspneic and tachypneic. Waveform while walking was unreliable however is soon as she got back to bed oxygen saturation was at 85%. She feels she is 50% better than she was but is concerned with discharge home this time. Lying in bed she still has some audible wheeze, she is tachypneic up to a rate of 40, difficulty speaking in complete sentences but oxygen saturations are at 95%. She is placed on 2 L of oxygen for comfort and tachypnea and does feel better. We will give her a dose of Solu-Medrol for acute asthma as well as a repeat nebulized treatment and will talk to the hospitalist service for admission. She is having a bit more post thoracentesis pleuritic pain as her morphine is wearing off and this is reordered. In the absence of fever significant leukocytosis with clear pleural fluid with thoracentesis I do not suspect acute bacterial infection and will hold on antibiotics for the time being Observation admission is accepted by Dr. Lacy Discharge Plan Departure Patient Disposition: Admitted as Observation Clinical Impression: Pleural effusion Dyspnea Qualifiers: Dyspnea type: other forms of dyspnea Qualified Code(s): R06.09 - Other forms of dyspnea Acute asthma exacerbation Qualifiers: Asthma severity: moderate Asthma persistence: persistent Qualified Code(s): J45.41 - Moderate persistent asthma with (acute) exacerbation Admit Date/Time: 09/17/23 19:44 Admit Provider: Lester Lacy
[2023-09-17 15:24] LABS: INR 1.1 (0.9-1.3); Prothrombin Time 12.2 SECONDS (9.4-12.5)
[2023-09-17 15:29] LABS: Lactate (Lactic Acid) 1.2 mmol/L (0.7-2.1)
[2023-09-17 15:30] LABS: Alanine Aminotransferase 13 IU/L (<35); Albumin 4.7 g/dL (3.5-5.0); Albumin Globulin Ratio 1.4 (1.0-2.8); Alkaline Phosphatase 105 U/L (38-126); Aspartate Aminotransferase 19 IU/L (14-36); BUN Creatinine Ratio 17.1 (6-22); Bilirubin Total 0.8 mg/dL (0.2-1.3); Blood Urea Nitrogen 14 mg/dL (7-17); Calcium 9.8 mg/dL (8.4-10.2); Carbon Dioxide 28 mmol/L (22-32); Chloride 104 mmol/L (98-107); Estimated Glomerular Filt Rate > 60 mL/min (>60); Globulin 3.3 g/dL (1.7-4.1); Glucose 88 mg/dL (70-100); HEMOLYSIS 16 (0-50); Potassium 4.2 mmol/L (3.4-5.1); Sodium 139 mmol/L (137-145)
[2023-09-17 15:31] LABS: Creatine Kinase 43 U/L (30-135); Lipase 40 U/L (23-300)
[2023-09-17] MEDS: ALBUTEROL 2.5 MG/3 ML NEB (ADULT) 5 MG INH (15:38)
[2023-09-17 15:39] LABS: NT-proBNP (BNP-Adult 18+) 902 pg/mL (<125)
[2023-09-17 15:43] LABS: Troponin I < 0.012 ng/mL (0.01-0.034)
--- NOTE | 2023-09-17 15:55 | DI.US.S_ITS ---
PROCEDURE: US THORACENTESIS INDICATIONS: Pleural effusion TECHNIQUE: The indications, alternatives, benefits, risks, and complications of the procedure were explained to the patient. Written informed consent was obtained and placed in the chart. The chest was examined sonographically, and an appropriate site was chosen for thoracentesis. The skin was prepared and draped in the usual sterile fashion, and 1% lidocaine was infiltrated from the skin down through the pleural surface. A 19-gauge catheter-covered needle was then introduced into the pleural space, the catheter was advanced and the needle was withdrawn, and thereafter pleural fluid was aspirated. The catheter was then removed and a dressing was applied. COMPARISON: [facility], CT, CT CHEST W CON, 09/02/2023, 10:24. [facility], US THORACENTESIS, 09/02/2023, 9:36. [facility], THORACENTESIS, 08/21/2023, 8:53. FINDINGS: Access site: Right hemithorax. Needle: One-Step centesis catheter with introducer needle. Fluid volume and description: 1400 cc; clear Fluid sent for diagnostic testing: Per referring physician Medications: 1% lidocaine for local anaesthesia. Complications: None; post-procedural chest radiograph is pending to assess for pneumothorax. IMPRESSION: Successful ultrasound-guided thoracentesis. Dictated by: Medina Yuen M.D. on 09/17/2023 at 17:42 Approved by: Medina Yuen M.D. on 09/17/2023 at 17:43
--- NOTE | 2023-09-17 15:56 | DI.RAD.S_ITS ---
PROCEDURE: XR CHEST 1V INDICATIONS: post-thoracentesis TECHNIQUE: One view of the chest was acquired. COMPARISON: [facility], CT, CT CHEST W CON, 09/02/2023, 10:24. [facility], CR, XR CHEST 1V, 09/01/2023, 18:17. [facility], CR, XR CHEST 1V, 09/17/2023, 15:08. FINDINGS: Surgical changes and devices: None. Lungs and pleura: No pneumothorax. Left pleural effusion is decreased. Left basilar atelectasis. Increased pulmonary vascularity. Mediastinum: Mediastinal contours appear normal. Heart size is mildly enlarged. Bones and chest wall: No suspicious bony lesions. Overlying soft tissues appear unremarkable. IMPRESSION: No pneumothorax. Dictated by: Medina Yuen M.D. on 09/17/2023 at 17:01 Approved by: Medina Yuen M.D. on 09/17/2023 at 17:02
[2023-09-17] MEDS: ALBUTEROL/IPRATROPIUM 3 ML AMPUL INH ×3 (16:04→17:56)
[2023-09-17 17:26] LABS: Body Fluid Tot Nucleated Cells 326 /uL
[2023-09-17 17:28] LABS: Body Fluid Red Blood Cells 374 /uL
[2023-09-17] MEDS: MORPHINE 4 MG/ML INJ IV ×2 (17:34→19:42)
[2023-09-17 17:49] LABS: Body Fluid Appearance CLEAR; Body Fluid Clotted? NO CLOTS PRESENT; Body Fluid Color YELLOW
[2023-09-17 17:52] LABS: Eosinophils Body Fluid 19 %; Lymphocytes Body Fluid 51 %; MESO/MACRO/MONO Body Fluid 25 %; Neutrophils Body Fluid 5
--- NOTE | 2023-09-17 17:58 | PC.NURSE ---
patient was sating at 93% with a poor pleth on the mobile pulse ox. Patient also stated that she felt she was working to breathe almost as hard during the ambulation assessment when compared to when she arrived to the department. When the patient made it back to her bed, I placed the monitor pulse ox on her finger and immediately got a reading of 88% with a good pleth.
[2023-09-17] MEDS: methylPREDNISolone 125 MG/2 ML VIAL IV (19:41)
[2023-09-17] MEDS: ALBUTEROL 2.5 MG/3 ML NEB (ADULT) INH (19:41)
[2023-09-17] MEDS: HYDROMORPHONE 0.5 MG INJ IV (22:37)
[2023-09-17] MEDS: PREGABALIN 50 MG CAPSULE 200 MG PO (22:41)
[2023-09-17] MEDS: METOPROLOL IR 25 MG TABLET PO (22:42)
[2023-09-17] MEDS: AMITRIPTYLINE 25 MG TABLET 150 MG PO (22:42)
[2023-09-17] MEDS: QUETIAPINE 25 MG TABLET 75 MG PO (22:42)
[2023-09-18 00:21] VITALS: BP 118/70; PULSE 79; RESP 18; TEMP 36.2; O2SAT 92
[2023-09-18] MEDS: HYDROMORPHONE 0.5 MG INJ IV (03:57)
--- NOTE | 2023-09-18 04:33 | P.HP_ITS ---
History of Present Illness History of Present Illness Chief complaint: fluid retention per pt Narrative: 45 years old male 42 years old female with history of idiopathic recurrent pleural effusion, obstructive sleep apnea on CPAP, hypertension, depression, migraine, fibromyalgia, hypothyroidism, rheumatoid arthritis, irritable bowel disease, diverticulosis, gestational diabetes, presented to the ER with progressive worsening of shortness of breath in the last couple of days. The patient had multiple thoracentesis, last one was 2 weeks ago showing transudate. She completed course of antibiotics at that time. Denies any fever, cough, chest pain, palpitations, nausea, vomiting, abdominal pain, diarrhea or dysuria. In the ER she had left-sided ultrasound-guided thoracentesis with removal of 1400 cc of fluids. Upon ambulation she became hypoxic and tachycardic and was decided to be admitted for observation. The patient had third pleural effusion in the last month. Lab workup shows WBC 11.3, H&H 15.2/45.7, platelets 296, INR 1.1, sodium 139, potassium 4.2, creatinine 0.82, LFT normal, troponin normal, BNP 902, lipase 40, thoracentesis fluid pending. Initial chest x-ray shows right base atelectasis versus pneumonia and increased moderate to large left pleural effusion. Chest x-ray pulse thoracentesis shows no pneumothorax. In the ER she was given albuterol nebulizer treatment, morphine and Solu-Medrol 125 mg IV. [facility] Medical History Hot flashes due to menopause Onychomycosis Chronic pain due to neoplasm Functional memory problem BMI 45.0-49.9, adult History of colon polyps Insomnia disorder, with non-sleep disorder mental comorbidity Bilateral chronic knee pain Acute pain of right knee UTI (urinary tract infection) Paget's disease of bone Obstructive sleep apnea on CPAP Lymphedema of arm Essential hypertension Major depressive disorder Abrasion, corneal Migraines Fibromyalgia (~05/2017) History of PCR DNA positive for HSV1 (~2014) Hypothyroidism (~2008) Rheumatoid arthritis Asthma Depression Irritable bowel syndrome Diverticular disease (~2015) Gestational diabetes mellitus (GDM) (10/27/14) Morbid obesity with body mass index (BMI) of 40.0 to 44.9 in adult (11/08/10) Surgical History Status post laparoscopy (01/19/16) Status post laparoscopic supracervical hysterectomy (10/23/15) Status post delivery (12/30/14) Status post tubal ligation (12/30/14) Status post surgery (07/07/12) Family History Grandmother Stroke Grandfather Heart disease Cancer Father Hypertension Mother Hypothyroidism (acquired) Social History marital status: household members: spouse and children lives independently: Yes Smoking Status: Former smoker alcohol intake: current substance use type: does not use Meds Home Medications and Allergies Home Medications Medication Instructions Recorded Confirmed Type albuterol sulfate 2.5 mg/3 mL 2.5 mg (3 mL) inhalation Q4-6H PRN 11/01/20 09/17/23 Rx (0.083 %) solution for nebulization bronchospasm #90 mL duloxetine 60 mg capsule,delayed 60 mg PO DAILY #90 caps 07/25/23 09/17/23 Rx release tizanidine 4 mg tablet 1 mg (1/4 x 4 mg) PO 3XD PRN for 07/29/23 09/17/23 Rx muscle spasm #270 tabs albuterol sulfate 90 mcg/actuation 2 puff inhalation Q4HP PRN 08/01/23 09/17/23 Rx aerosol inhaler (Ventolin HFA) shortness of breath or wheezing #1 ea amitriptyline 150 mg tablet 150 mg PO BEDTIME 09/01/23 09/17/23 History bupropion HCl 150 mg 24 hr tablet, 150 mg PO DAILY 09/01/23 09/17/23 History extended release levothyroxine 150 mcg tablet 150 mcg PO QAM 09/01/23 09/17/23 History pregabalin 200 mg capsule 200 mg PO TID 09/01/23 09/17/23 History quetiapine 25 mg tablet 75 mg PO BEDTIME 09/01/23 09/17/23 History ibuprofen 200 mg tablet 400 mg (2 x 200 mg) PO Q6H PRN 09/02/23 09/17/23 Rx pain #1 tab oxycodone 5 mg tablet 10 mg PO Q4H PRN pain 09/02/23 09/17/23 History metoprolol tartrate 25 mg tablet 25 mg PO BID #180 tabs 09/10/23 09/17/23 Rx Allergies Allergy/AdvReac Type Severity Reaction Status Date / Time Penicillins [PENICILLINS] Allergy Mild Rash Verified 09/17/23 14:53 fluconazole [From DIFLUCAN] AdvReac Intermediate vomiting Verified 09/17/23 14:53 and abd pain codeine [CODEINE] AdvReac Mild NAUSEA Verified 09/17/23 14:53 Review of Systems Review of Systems ROS: Yes All systems reviewed with the patient and are negative except as otherwise documented Constitutional Constitutional: Reports as per HPI and Reports system reviewed and no additional complaints, except as documented Eyes Eyes: Reports as per HPI and Reports system reviewed and no additional complaints, except as documented ENT Ears, Nose, Mouth, and Throat: Yes as per HPI and Yes system reviewed and no additional complaints, except as documented Cardiovascular Cardiovascular: Reports system reviewed and no additional complaints, except as documented Respiratory Respiratory: Reports system reviewed and no additional complaints, except as documented Gastrointestinal Gastrointestinal: Reports system reviewed and no additional complaints, except as documented Genitourinary Genitourinary: Reports system reviewed and no additional complaints, except as documented Musculoskeletal Musculoskeletal: Reports system reviewed and no additional complaints, except as documented, Reports abnormal gait and Reports numbness Neurologic Neurologic: Reports system reviewed and no additional complaints, except as documented, Reports abnormal gait, Reports confusion and Reports numbness Psychiatric Psychiatric: Reports system reviewed and no additional complaints, except as documented and Reports confusion Exam Vital Signs (past 8 hours): - 09/17/23 21:00 09/17/23 21:00 09/17/23 21:25 Temperature Pulse Rate 94 H Respiratory Rate 28 H Blood Pressure 169/100 H Pulse Oximetry 91 Oxygen Delivery Method Nasal Cannula Oxygen Flow Rate 09/17/23 21:30 09/18/23 00:21 Temperature 97.1 F L 97.2 F L Pulse Rate 92 H 79 Respiratory Rate 20 18 Blood Pressure 171/105 H 118/70 Pulse Oximetry 93 92 Oxygen Delivery Method Oxygen Flow Rate 2 2 Oxygen Delivery Method Nasal Cannula Oxygen Flow Rate 2 Const General: cooperative, comfortable and well developed Orientation: alert and oriented x3 HENMT Head: normal to inspection, normocephalic and atraumatic Face and sinus: normal facial exam Mouth: oral mucosae normal and moist mucous membranes Throat: posterior oropharynx normal Eyes General: appearance normal, both eyes and all related structures Pupils: PERRL EOM: EOM intact bilaterally Neck Neck: normal visual inspection and full ROM Chest Chest: normal inspection of the chest Resp Effort & Inspection: normal respiratory effort and able to speak in complete sentences Auscultation: clear to auscultation bilaterally Cardio Palpation: normal PMI Rate: regular rate Rhythm: regular rhythm Heart Sounds: S1 normal and S2 normal GI Inspection: normal to inspection Palpation: soft and no hepatosplenomegaly Auscultation: normal bowel sounds Skin General: no rashes or lesions noted Lesions: no lesions Rashes: no rashes Trauma: no lacerations or abrasions Neuro General: patient alert, patient awake, patient oriented x3 and no focal motor deficits Cranial Nerves: CN's II-XI intact bilaterally Cognition: normal cognition Speech: speech normal Gait: normal gait Motor: muscle tone normal throughout Sensory Exam: no sensory deficits noted Extrem General: full ROM and no calf tenderness Psych Appearance: grossly normal Mental Status: mental status grossly normal Speech and Movement: speech and movement normal Objective Labs 09/17/23 15:06 09/17/23 15:06 Labs: Laboratory Results - last 24 hr 09/17/23 09/17/23 09/17/23 15:06 15:06 16:44 WBC 11.3 H RBC 5.46 H Hgb 15.2 Hct 45.7 MCV 83.8 MCH 27.9 MCHC 33.2 RDW 17.2 H Plt Count 296 Neut % (Auto) 79.7 H Lymph % (Auto) 9.3 L [place] % (Auto) 7.2 Eos % (Auto) 2.8 Baso % (Auto) 1.0 Neut # (Auto) 9000 H Lymph # (Auto) 1100 [place] # (Auto) 800 Eos # (Auto) 300 Baso # (Auto) 100 PT 12.2 INR 1.1 Sodium 139 Potassium 4.2 Chloride 104 Carbon Dioxide 28 BUN 14 Creatinine 0.82 Estimated GFR > 60 BUN/Creatinine Ratio 17.1 Glucose 88 Lactate 1.2 Calcium 9.8 Total Bilirubin 0.8 AST 19 ALT 13 Alkaline Phosphatase 105 Total Creatine Kinase 43 Troponin I Cancelled < 0.012 NT-Pro-B Natriuret Pep 902 H Total Protein 8.0 Albumin 4.7 Globulin 3.3 Albumin/Globulin Ratio 1.4 Lipase 40 Fluid Color Yellow Fluid Appearance Clear Fluid RBC 374 Fld Tot Nucleated Cell 326 Fluid Neutrophils % 5 Fluid Lymphocytes % 51 Fluid Eosinophils % 19 Fluid Meso/Macro/[place] % 25 Body Fluid Clot No clots present Assessment & Plan Assessment & Plan narrative: Recurrent idiopathic pleural effusion, status postthoracentesis with removal of 1400 transudate. Acute respiratory failure with hypoxia -Continue oxygen supplement with pulse ox monitoring -Albuterol as needed, pain medications as needed -Follow-up on the thoracentesis fluid labs -Hold any antibiotics for now -Pulmonary consult follow-up Elevated BNP. Significantly elevated from previous studies. Echo done last month shows mild concentric LVH with ejection fraction of 60-65%, LA mildly dilated. Consider adding diuretic or follow-up on BNP Hypothyroidism. Restart levothyroxine. Check TSH. Hypertension. Restart metoprolol and lisinopril Anxiety/RLS/fibromyalgia/IBS/ADD. Continue bupropion amitriptyline and duloxetine Asthma. Continue albuterol as needed Time Spent With Patient Time with patient: 50 to 69 minutes with 50% spent counseling/coordinating care Quality VTE Deep Vein Thrombosis/Pulmonary Embolism Present on Admission: No MIPS - Admit I confirm the patient?s Advance Care Plan is present, Code status is documented, Surrogate decision maker is in patient?s record [If Yes, STOP here]: Yes MIPS - Meds 'Current medications' to include all prescriptions, [id number] products, herbals, cannabis/cannabidiol products, and vitamin/mineral/dietary (nutritional) supplements. I have utilized all available resources to obtain, update, or review the patient?s current medications. [If Yes, STOP here]: Yes
[2023-09-18 06:11] LABS: Alanine Aminotransferase 12 IU/L (<35); Albumin 4.4 g/dL (3.5-5.0); Albumin Globulin Ratio 1.3 (1.0-2.8); Alkaline Phosphatase 101 U/L (38-126); Aspartate Aminotransferase 17 IU/L (14-36); BUN Creatinine Ratio 23.1 (6-22); Bilirubin Total 0.6 mg/dL (0.2-1.3); Blood Urea Nitrogen 18 mg/dL (7-17); Calcium 9.6 mg/dL (8.4-10.2); Carbon Dioxide 27 mmol/L (22-32); Chloride 105 mmol/L (98-107); Estimated Glomerular Filt Rate > 60 mL/min (>60); Globulin 3.4 g/dL (1.7-4.1); Glucose 138 mg/dL (70-100); HEMOLYSIS < 15 (0-50); Magnesium 2.4 mg/dL (1.6-2.3); Potassium 4.8 mmol/L (3.4-5.1); Sodium 136 mmol/L (137-145); Total Protein 7.8 g/dL (6.3-8.2)
[2023-09-18] MEDS: LEVOTHYROXINE 75 MCG TABLET 150 MCG PO (06:21)
[2023-09-18 06:36] VITALS: BP 158/99; PULSE 69; RESP 18; TEMP 36; O2SAT 95
--- NOTE | 2023-09-18 07:05 | PC.NURSE ---
rec'd pt from the ED at 2125 s/p left thoracentesis (1400ml); pt on o2/2l/nc for comfort; has been medicated w/ dilaudid for pain to the left side/chest/neck; she spoke w/ hospitalist last night re: transfer to facility w/ grease cup filler
[2023-09-18] MEDS: buPROPion XL 150 MG TAB PO (08:28)
[2023-09-18] MEDS: PREGABALIN 50 MG CAPSULE 200 MG PO (08:28)
[2023-09-18] MEDS: OXYCODONE IR 5 MG TABLET 10 MG PO (08:29)
[2023-09-18] MEDS: DULOXETINE 30 MG CAPSULE 60 MG PO (08:29)
[2023-09-18] MEDS: METOPROLOL IR 25 MG TABLET PO (08:29)
[2023-09-18 08:51] VITALS: BP 175/107; PULSE 76; RESP 18; TEMP 36.1; O2SAT 94
[2023-09-18 10:09] LABS: C-Reactive Protein Quant 2.1 mg/dL (<1.0); Rheumatoid Factor < 8.6 IU/mL (<12.0)
[2023-09-18 10:16] LABS: Erythrocyte Sedimentation Rate 9 MM/HR (0-20)
--- NOTE | 2023-09-18 10:36 | P.DS_ITS ---
History of Present Illness History of Present Illness Chief complaint: fluid retention per pt Narrative: 45 years old male 42 years old female with history of idiopathic recurrent pleural effusion, obstructive sleep apnea on CPAP, hypertension, depression, migraine, fibromyalgia, hypothyroidism, rheumatoid arthritis, irritable bowel disease, diverticulosis, gestational diabetes, presented to the ER with progressive worsening of shortness of breath in the last couple of days. The patient had multiple thoracentesis, last one was 2 weeks ago showing transudate. She completed course of antibiotics at that time. Denies any fever, cough, chest pain, palpitations, nausea, vomiting, abdominal pain, diarrhea or dysuria. In the ER she had left-sided ultrasound-guided thoracentesis with removal of 1400 cc of fluids. Upon ambulation she became hypoxic and tachycardic and was decided to be admitted for observation. The patient had third pleural effusion in the last month. Lab workup shows WBC 11.3, H&H 15.2/45.7, platelets 296, INR 1.1, sodium 139, potassium 4.2, creatinine 0.82, LFT normal, troponin normal, BNP 902, lipase 40, thoracentesis fluid pending. Initial chest x-ray shows right base atelectasis versus pneumonia and increased moderate to large left pleural effusion. Chest x-ray pulse thoracentesis shows no pneumothorax. In the ER she was given albuterol nebulizer treatment, morphine and Solu-Medrol 125 mg IV. Discharge Providers Provider Date of admission: 09/17/23 19:44 Discharge Date: 09/18/23 Primary care physician: Eduard Arreguin DO Consults: Telephone discussion with Pulmonary at [facility], Dr. Suarez. She has an appointment for September [address] Burr for a thoracentesis and evaluation. They had tried to give her an earlier appointment but she had a camping trip that was scheduled and did not want to changes. Discharge provider: Isaac Alfred MD Summary Hospital Course Discharge Diagnosis: 1. Recurrent pleural effusion, present on admission and improved. This is transudative. 2. Acute hypoxic respiratory failure, present on admission and resolved. 3. Rheumatoid arthritis, present on admission and active. No medications currently. No aviation all source intelligence currently. 4. Asthma, present on admission and active. 5. Hypertension, present on admission and stable. 6. Hypothyroid, present on admission and stable. 7. Fibromyalgia, present on admission and stable. 8. ADHD, present on admission and active. 9. Morbid obesity with BMI of 44.9, present on admission and active. Hospital Course: She was admitted with recurrent effusion. She underwent thoracentesis with Radiology for 1400 mils and studies were sent. She was discussed with Pulmonary on the day of presentation as well as the day of discharge. She is close follow up with them and understands the next steps which will be a repeat thoracentesis, ongoing diagnostic efforts, and possible pleurodesis. I did express that I was concerned about rheumatologic pulmonary manifestations. She does have multiple rheumatologic tests sent today and pending including a sed rate, CRP, and rheumatoid factor. She was hypoxic after thoracentesis but this resolved overnight. Status at Discharge Cognitive/behavioral status at discharge: oriented Functional status at discharge: independent ambulation Overall status at discharge: patient is back to baseline Time Spent with Patient Time spent: Greater than 30 minutes Exam Vital Signs (past 8 hours): - 09/18/23 06:36 09/18/23 08:51 Temperature 96.8 F L 96.9 F L Pulse Rate 69 76 Respiratory Rate 18 18 Blood Pressure 158/99 H 175/107 H Pulse Oximetry 95 94 Oxygen Flow Rate 2.5 0 Oxygen Delivery Method Nasal Cannula Oxygen Flow Rate 0 Narrative Exam Narrative: NAD, alert and oriented. Fluent speech. Lungs are mostly clear with some scattered wheezing, normal rate and effort. Heart is regular, no murmur gallop or rub. Abdomen is soft, non distended. Extremities are free of edema. Objective Imaging Chest x-ray: Radiologist's impression: Surgical changes and devices: None. Lungs and pleura: No pneumothorax. Left pleural effusion is decreased. Left basilar atelectasis. Increased pulmonary vascularity. Mediastinum: Mediastinal contours appear normal. Heart size is mildly enlarged. Bones and chest wall: No suspicious bony lesions. Overlying soft tissues appear unremarkable. IMPRESSION: No pneumothorax. (after thoracentesis). Labs 09/17/23 15:06 09/18/23 05:50 Labs: Laboratory Results - last 24 hr 09/17/23 09/17/23 09/17/23 15:06 15:06 16:44 WBC 11.3 H RBC 5.46 H Hgb 15.2 Hct 45.7 MCV 83.8 MCH 27.9 MCHC 33.2 RDW 17.2 H Plt Count 296 Neut % (Auto) 79.7 H Lymph % (Auto) 9.3 L Graham % (Auto) 7.2 Eos % (Auto) 2.8 Baso % (Auto) 1.0 Neut # (Auto) 9000 H Lymph # (Auto) 1100 Graham # (Auto) 800 Eos # (Auto) 300 Baso # (Auto) 100 ESR PT 12.2 INR 1.1 Sodium 139 Potassium 4.2 Chloride 104 Carbon Dioxide 28 BUN 14 Creatinine 0.82 Estimated GFR > 60 BUN/Creatinine Ratio 17.1 Glucose 88 Lactate 1.2 Calcium 9.8 Magnesium Total Bilirubin 0.8 AST 19 ALT 13 Alkaline Phosphatase 105 Total Creatine Kinase 43 Troponin I Cancelled < 0.012 C-Reactive Protein NT-Pro-B Natriuret Pep 902 H Total Protein 8.0 Albumin 4.7 Globulin 3.3 Albumin/Globulin Ratio 1.4 Lipase 40 Fluid Color Yellow Fluid Appearance Clear Fluid RBC 374 Fld Tot Nucleated Cell 326 Fluid Neutrophils % 5 Fluid Lymphocytes % 51 Fluid Eosinophils % 19 Fluid Meso/Macro/Graham % 25 Body Fluid Clot No clots present Rheumatoid Factor 09/18/23 05:50 WBC RBC Hgb Hct MCV MCH MCHC RDW Plt Count Neut % (Auto) Lymph % (Auto) Graham % (Auto) Eos % (Auto) Baso % (Auto) Neut # (Auto) Lymph # (Auto) Graham # (Auto) Eos # (Auto) Baso # (Auto) ESR 9 PT INR Sodium 136 L Potassium 4.8 Chloride 105 Carbon Dioxide 27 BUN 18 H Creatinine 0.78 Estimated GFR > 60 BUN/Creatinine Ratio 23.1 H Glucose 138 H Lactate Calcium 9.6 Magnesium 2.4 H Total Bilirubin 0.6 AST 17 ALT 12 Alkaline Phosphatase 101 Total Creatine Kinase Troponin I C-Reactive Protein 2.1 H NT-Pro-B Natriuret Pep Total Protein 7.8 Albumin 4.4 Globulin 3.4 Albumin/Globulin Ratio 1.3 Lipase Fluid Color Fluid Appearance Fluid RBC Fld Tot Nucleated Cell Fluid Neutrophils % Fluid Lymphocytes % Fluid Eosinophils % Fluid Meso/Macro/Graham % Body Fluid Clot Rheumatoid Factor < 8.6 PFSH Medical History Hot flashes due to menopause Onychomycosis Chronic pain due to neoplasm Functional memory problem BMI 45.0-49.9, adult History of colon polyps Insomnia disorder, with non-sleep disorder mental comorbidity Bilateral chronic knee pain Acute pain of right knee UTI (urinary tract infection) Paget's disease of bone Obstructive sleep apnea on CPAP Lymphedema of arm Essential hypertension Major depressive disorder Abrasion, corneal Migraines Fibromyalgia (~05/2017) History of PCR DNA positive for HSV1 (~2014) Hypothyroidism (~2008) Rheumatoid arthritis Asthma Depression Irritable bowel syndrome Diverticular disease (~2015) Gestational diabetes mellitus (GDM) (10/27/14) Morbid obesity with body mass index (BMI) of 40.0 to 44.9 in adult (11/08/10) Surgical History Status post laparoscopy (01/19/16) Status post laparoscopic supracervical hysterectomy (10/23/15) Status post delivery (12/30/14) Status post tubal ligation (12/30/14) Status post surgery (07/07/12) Family History Grandmother Stroke Grandfather Heart disease Cancer Father Hypertension Mother Hypothyroidism (acquired) Social History marital status: household members: spouse and children lives independently: Yes Smoking Status: Former smoker alcohol intake: current substance use type: does not use Discharge Assessment & Plan Assessment and Plan Assessment: 1. Recurrent pleural effusion, present on admission and improved. This is transudative. 2. Acute hypoxic respiratory failure, present on admission and resolved. 3. Rheumatoid arthritis, present on admission and active. No medications currently. No aviation all source intelligence currently. 4. Asthma, present on admission and active. 5. Hypertension, present on admission and stable. 6. Hypothyroid, present on admission and stable. 7. Fibromyalgia, present on admission and stable. 8. ADHD, present on admission and active. 9. Morbid obesity with BMI of 44.9, present on admission and active. Plan of Treatment: She is discharged home with the addition of trazodone as requested for insomnia and Motrin as needed for joint pain. She does not currently have a aviation all source intelligence. She has a follow up appointment scheduled as noted above with Pulmonary. Some of her studies from her thoracentesis including cytology and LDH are pending. She understands that she will likely have to have 1 or 2 more tablets before a diagnosis is clear or pleurodesis is offered. Discharge Plan Discharge Plan Patient Disposition: Home Provider Discharge Comment: Discussed with Pulmonary Clinic, she has an appointment set up for thoracentesis and evaluation with Dr. Barrios on September 30. Discharge orders & Medications Prescriptions: New ibuprofen [Motrin IB] 200 mg tablet 400 mg PO Q8H PRN (Reason: pain (scale score 4-6)) Qty: 30 0RF trazodone 50 mg tablet 50 mg PO BEDTIME PRN (Reason: sleep) Qty: 30 0RF Continued albuterol sulfate 2.5 mg /3 mL (0.083 %) solution for nebulization 2.5 mg INHALATION Q4-6H PRN (Reason: bronchospasm) Qty: 90 3RF duloxetine 60 mg capsule,delayed release(DR/EC) 60 mg PO DAILY Qty: 90 0RF Patient Comments: Takes at bedtime tizanidine 4 mg tablet 1 mg PO 3XD PRN (Reason: for muscle spasm) Qty: 270 1RF albuterol sulfate [Ventolin HFA] 90 mcg/actuation HFA aerosol inhaler 2 puff INHALATION Q4HP PRN (Reason: shortness of breath or wheezing) Qty: 1 5RF Rx Instructions: takes in absence of nebulizer metoprolol tartrate 25 mg tablet 25 mg PO BID Qty: 180 1RF Patient Comments: pt reports taking med at bedtime only 25 mg quetiapine 25 mg tablet 75 mg PO BEDTIME Rx Instructions: TAKE 3 TABLETS BY MOUTH EVERY NIGHT AT BEDTIME. DUE FOR APPOINTMENT amitriptyline 150 mg tablet 150 mg PO BEDTIME Patient Comments: Takes at bedtime Rx Instructions: TAKE 1 TABLET (150 MG) ORALLY DAILY AT BEDTIME levothyroxine 150 mcg tablet 150 mcg PO QAM Patient Comments: Takes at bedtime bupropion HCl 150 mg tablet extended release 24 hr 150 mg PO DAILY Patient Comments: Takes at bedtime Rx Instructions: TAKE 1 TABLET (150 MG) ORALLY DAILY pregabalin 200 mg capsule 200 mg PO TID Rx Instructions: Take 1 capsule by mouth 3 times daily oxycodone 5 mg tablet 10 mg PO Q4H PRN (Reason: pain) ibuprofen 200 mg tablet 400 mg PO Q6H PRN (Reason: pain) Qty: 1 0RF Rx Instructions: OTC Follow up/Referrals: Eduard Arreguin, [Primary Care Provider] - Discharge Health Status Multidrug resistant organism: No MDRO Diet/Activity/Treatments Diet: Regular Visit Report/Discharge Packet Instructions: DI for Shortness of Breath Stand Alone Forms: Patient Portal/API Discharge Data Primary Care Provider: Eduard Arreguin Attending Provider: Lester Lacy Admit Date/Time: 09/17/23 19:44 Quality VTE Deep Vein Thrombosis/Pulmonary Embolism Present on Admission: No MIPS - DC The patient has a history of heart transplant or Left Ventricular Assist Device (LVAD). If yes, STOP here.: No The patient has current or prior documentation of left ventricular ejection fraction (LVEF) less than or equal to 40%, or moderate or severely depressed left ventricular systolic function.: No
--- NOTE | 2023-09-18 10:44 | PM.HP.1 ---
History of Present Illness History of Present Illness Chief complaint: fluid retention per pt Narrative: From night doctor: 45 years old male 42 years old female with history of idiopathic recurrent pleural effusion, obstructive sleep apnea on CPAP, hypertension, depression, migraine, fibromyalgia, hypothyroidism, rheumatoid arthritis, irritable bowel disease, diverticulosis, gestational diabetes, presented to the ER with progressive worsening of shortness of breath in the last couple of days. The patient had multiple thoracentesis, last one was 2 weeks ago showing transudate. She completed course of antibiotics at that time. Denies any fever, cough, chest pain, palpitations, nausea, vomiting, abdominal pain, diarrhea or dysuria. In the ER she had left-sided ultrasound-guided thoracentesis with removal of 1400 cc of fluids. Upon ambulation she became hypoxic and tachycardic and was decided to be admitted for observation. The patient had third pleural effusion in the last month. Lab workup shows WBC 11.3, H&H 15.2/45.7, platelets 296, INR 1.1, sodium 139, potassium 4.2, creatinine 0.82, LFT normal, troponin normal, BNP 902, lipase 40, thoracentesis fluid pending. Initial chest x-ray shows right base atelectasis versus pneumonia and increased moderate to large left pleural effusion. Chest x-ray pulse thoracentesis shows no pneumothorax. In the ER she was given albuterol nebulizer treatment, morphine and Solu-Medrol 125 mg IV. She resolved her hypoxemia in the morning of September 17. She was discussed with Pulmonary with recommendations for close follow up as scheduled in ongoing diagnostic efforts. This is the 3rd time she has had thoracentesis. She does have rheumatoid arthritis but is not currently on any medications targeting this other than OTC anti-inflammatories. She has not currently see a fishing gear mechanic but had seen 1 up in [facility]. She notes her rheumatoid factor was initially negative. They were apparently calling this seronegative rheumatoid arthritis. [facility] Medical History Hot flashes due to menopause Onychomycosis Chronic pain due to neoplasm Functional memory problem BMI 45.0-49.9, adult History of colon polyps Insomnia disorder, with non-sleep disorder mental comorbidity Bilateral chronic knee pain Acute pain of right knee UTI (urinary tract infection) Paget's disease of bone Obstructive sleep apnea on CPAP Lymphedema of arm Essential hypertension Major depressive disorder Abrasion, corneal Migraines Fibromyalgia (~05/2017) History of PCR DNA positive for HSV1 (~2014) Hypothyroidism (~2008) Rheumatoid arthritis Asthma Depression Irritable bowel syndrome Diverticular disease (~2015) Gestational diabetes mellitus (GDM) (10/27/14) Morbid obesity with body mass index (BMI) of 40.0 to 44.9 in adult (11/08/10) Surgical History Status post laparoscopy (01/19/16) Status post laparoscopic supracervical hysterectomy (10/23/15) Status post delivery (12/30/14) Status post tubal ligation (12/30/14) Status post surgery (07/07/12) Family History Grandmother Stroke Grandfather Heart disease Cancer Father Hypertension Mother Hypothyroidism (acquired) Social History marital status: household members: spouse and children lives independently: Yes Smoking Status: Former smoker alcohol intake: current substance use type: does not use Meds Home Medications and Allergies Home Medications Medication Instructions Recorded Confirmed Type albuterol sulfate 2.5 mg/3 mL 2.5 mg (3 mL) inhalation Q4-6H PRN 11/01/20 09/17/23 Rx (0.083 %) solution for nebulization bronchospasm #90 mL duloxetine 60 mg capsule,delayed 60 mg PO DAILY #90 caps 07/25/23 09/17/23 Rx release tizanidine 4 mg tablet 1 mg (1/4 x 4 mg) PO 3XD PRN for 07/29/23 09/17/23 Rx muscle spasm #270 tabs albuterol sulfate 90 mcg/actuation 2 puff inhalation Q4HP PRN 08/01/23 09/17/23 Rx aerosol inhaler (Ventolin HFA) shortness of breath or wheezing #1 ea amitriptyline 150 mg tablet 150 mg PO BEDTIME 09/01/23 09/17/23 History bupropion HCl 150 mg 24 hr tablet, 150 mg PO DAILY 09/01/23 09/17/23 History extended release levothyroxine 150 mcg tablet 150 mcg PO QAM 09/01/23 09/17/23 History pregabalin 200 mg capsule 200 mg PO TID 09/01/23 09/17/23 History quetiapine 25 mg tablet 75 mg PO BEDTIME 09/01/23 09/17/23 History ibuprofen 200 mg tablet 400 mg (2 x 200 mg) PO Q6H PRN 09/02/23 09/17/23 Rx pain #1 tab oxycodone 5 mg tablet 10 mg PO Q4H PRN pain 09/02/23 09/17/23 History metoprolol tartrate 25 mg tablet 25 mg PO BID #180 tabs 09/10/23 09/17/23 Rx ibuprofen 200 mg tablet (Motrin IB) 400 mg (2 x 200 mg) PO Q8H PRN 09/18/23 Rx pain (scale score 4-6) #30 tabs trazodone 50 mg tablet 50 mg PO BEDTIME PRN sleep #30 tabs 09/18/23 Rx Allergies Allergy/AdvReac Type Severity Reaction Status Date / Time Penicillins [PENICILLINS] Allergy Mild Rash Verified 09/17/23 14:53 fluconazole [From DIFLUCAN] AdvReac Intermediate vomiting Verified 09/17/23 14:53 and abd pain codeine [CODEINE] AdvReac Mild NAUSEA Verified 09/17/23 14:53 Review of Systems Review of Systems Narrative: All else reviewed and otherwise unremarkable except as noted in the history and physical. Exam Vital Signs (past 8 hours): - 09/18/23 06:36 09/18/23 08:51 Temperature 96.8 F L 96.9 F L Pulse Rate 69 76 Respiratory Rate 18 18 Blood Pressure 158/99 H 175/107 H Pulse Oximetry 95 94 Oxygen Flow Rate 2.5 0 Oxygen Delivery Method Nasal Cannula Oxygen Flow Rate 0 Narrative Exam Narrative: NAD, alert and oriented, fluent speech, calm. Normocephalic skull, EOMI, anicteric sclera, symmetric pupils. Oropharynx unremarkable, no droop. Neck supple, midline trachea, no adenopathy. Lungs mostly clear with some scattered wheezing., normal rate and effort. Heart regular, no murmur gallop or rub. Abdomen is soft, non distended and non tender. Extremities are free of edema. Skin is free of rash or lesions. Joints are not swollen or deformed. Judgment appears to be normal. Objective Imaging Chest x-ray: Radiologist's impression: Large left-sided effusion. Chest x-ray after thoracentesis is negative for pneumothorax. Labs 09/17/23 15:06 09/18/23 05:50 Labs: Laboratory Results - last 24 hr 09/17/23 09/17/23 09/17/23 15:06 15:06 16:44 WBC 11.3 H RBC 5.46 H Hgb 15.2 Hct 45.7 MCV 83.8 MCH 27.9 MCHC 33.2 RDW 17.2 H Plt Count 296 Neut % (Auto) 79.7 H Lymph % (Auto) 9.3 L [place] % (Auto) 7.2 Eos % (Auto) 2.8 Baso % (Auto) 1.0 Neut # (Auto) 9000 H Lymph # (Auto) 1100 [place] # (Auto) 800 Eos # (Auto) 300 Baso # (Auto) 100 ESR PT 12.2 INR 1.1 Sodium 139 Potassium 4.2 Chloride 104 Carbon Dioxide 28 BUN 14 Creatinine 0.82 Estimated GFR > 60 BUN/Creatinine Ratio 17.1 Glucose 88 Lactate 1.2 Calcium 9.8 Magnesium Total Bilirubin 0.8 AST 19 ALT 13 Alkaline Phosphatase 105 Total Creatine Kinase 43 Troponin I Cancelled < 0.012 C-Reactive Protein NT-Pro-B Natriuret Pep 902 H Total Protein 8.0 Albumin 4.7 Globulin 3.3 Albumin/Globulin Ratio 1.4 Lipase 40 Fluid Color Yellow Fluid Appearance Clear Fluid RBC 374 Fld Tot Nucleated Cell 326 Fluid Neutrophils % 5 Fluid Lymphocytes % 51 Fluid Eosinophils % 19 Fluid Meso/Macro/[place] % 25 Body Fluid Clot No clots present Rheumatoid Factor 09/18/23 05:50 WBC RBC Hgb Hct MCV MCH MCHC RDW Plt Count Neut % (Auto) Lymph % (Auto) [place] % (Auto) Eos % (Auto) Baso % (Auto) Neut # (Auto) Lymph # (Auto) [place] # (Auto) Eos # (Auto) Baso # (Auto) ESR 9 PT INR Sodium 136 L Potassium 4.8 Chloride 105 Carbon Dioxide 27 BUN 18 H Creatinine 0.78 Estimated GFR > 60 BUN/Creatinine Ratio 23.1 H Glucose 138 H Lactate Calcium 9.6 Magnesium 2.4 H Total Bilirubin 0.6 AST 17 ALT 12 Alkaline Phosphatase 101 Total Creatine Kinase Troponin I C-Reactive Protein 2.1 H NT-Pro-B Natriuret Pep Total Protein 7.8 Albumin 4.4 Globulin 3.4 Albumin/Globulin Ratio 1.3 Lipase Fluid Color Fluid Appearance Fluid RBC Fld Tot Nucleated Cell Fluid Neutrophils % Fluid Lymphocytes % Fluid Eosinophils % Fluid Meso/Macro/[place] % Body Fluid Clot Rheumatoid Factor < 8.6 Assessment & Plan Assessment & Plan narrative: 1. Recurrent pleural effusion, present on admission and improved. This is transudative. 2. Acute hypoxic respiratory failure, present on admission and resolved. 3. Rheumatoid arthritis, present on admission and active. No medications currently. No fishing gear mechanic currently. 4. Asthma, present on admission and active. 5. Hypertension, present on admission and stable. 6. Hypothyroid, present on admission and stable. 7. Fibromyalgia, present on admission and stable. 8. ADHD, present on admission and active. 9. Morbid obesity with BMI of 44.9, present on admission and active. PLAN: -wean oxygen as able. -discuss with Pulmonary including workup, and follow up. -educate patient on the general flow of diagnosis of recurrent pleural effusion and ultimate possible steps. -send serologic panel for rheumatoid factor, sed rate, and CRP as this could be related to her rheumatoid arthritis. Time Spent With Patient Time with patient: 30 to 49 minutes with 50% spent counseling/coordinating care Quality VTE Deep Vein Thrombosis/Pulmonary Embolism Present on Admission: No MIPS - Admit I confirm the patient?s Advance Care Plan is present, Code status is documented, Surrogate decision maker is in patient?s record [If Yes, STOP here]: Yes MIPS - Meds 'Current medications' to include all prescriptions, [id number] products, herbals, cannabis/cannabidiol products, and vitamin/mineral/dietary (nutritional) supplements. I have utilized all available resources to obtain, update, or review the patient?s current medications. [If Yes, STOP here]: Yes
--- NOTE | 2023-09-18 11:35 | CM.DANOTE ---
DCP Brief Assessment Note: Pt is a 42yo female, resident of [place], is here due to asthma exacerbation, dyspnea, and pleural effusion. Pt lives in a house with her and children. Pt's Primary Care Provider is Dr. Eduard Arreguin and insurance is [facility] [employer] and Medicaid. Reviewed chart and team rounds for pt's medical status and initial discharge needs. DCP was not able to meet with pt due to pt discharging before DCP was able to enter room. Per RN, pt was cleared for discharge and was transported home by . GIDEON Fletcher Discharge Planning/Care Management CM Discharge Assessment Start: 09/18/23 11:32 Freq: Status: Active Protocol: Document 09/18/23 11:32 MW (Rec: 09/18/23 11:35 MW [id number]) Discharge Planning Assessment Assigned Wet Suit Gluer JOSÉ Irizarry DPOA/Assigned Designee Name Hina Abreu Contact Information [phone] Advance Directives? No Advance Directives on File No History Provided By Medical Record Expected Length of Stay 1 Has Patient been admitted in last 30 Yes days? Comment Pt was last admitted on for shortness of breath and nausea/vomitting. Prior Living Arrangements House Household Members spouse,children Type of transporation used prior to Drives own vehicle admit Independent with ADL's Yes Is patient alert and oriented? Yes Caregiver for Another Yes: Children DME Already Rented / Owned Nebulizer Discharge Plan Home Transportation Arrangement Spouse Referrals Initiated None needed Whiteboard Updated in Patient Room with No name and ext. # of Wet Suit Gluer Please Provide Date Initial DC 09/18/23 Assessment Was Performed Next Review Type Continued Stay Review
[2023-09-19 06:36] LABS: Labcorp Total Prot, Body Fluid 3.8 g/dL (.)
[2023-09-19 14:13] LABS: Labcorp LDH, Body Fluid 126 IU/L (.)
== END 2023-09-18 11:25 | disposition home or self-care (01) ==
LOC: ED 19:41 → AC 19:44
PROVIDERS: Hospitalist; Admitting Provider Internal Medicine; Emergency Provider Emergency Medicine; PCP Family Medicine; Referring Provider Emergency Medicine; Visit Provider Internal Medicine
DX: J90 Pleural effusion, not elsewhere classified (principal); R79.89 Other specified abnormal findings of blood chemistry; M79.7 Fibromyalgia; E66.01 Morbid (severe) obesity due to excess calories; G47.33 Obstructive sleep apnea (adult) (pediatric); Z68.41 Body mass index [BMI] 40.0-44.9, adult; I10 Essential (primary) hypertension; M06.9 Rheumatoid arthritis, unspecified; J45.909 Unspecified asthma, uncomplicated
CPT/HCPCS: 32555; 36415; 71045; 80053; 82550; 83605; 83615; 83690; 83735; 83880; 84157; 84484; 85025; 85610; 85651; 86140; 86430; 87070; 87075; 87205; 89051; 93005; 93010; 94640; 96374; 96375; 96376; 99285; G0378; A9270; J1170; J2270; J2919; J7613

== ENCOUNTER → 2023-10-08 17:15 | Outpatient (CLI) | payer OTHER, MEDICAID, SELFPAY ==
[2023-09-17 22:15] VITALS: BMI 44.9
[2023-10-08 17:45] LABS: Body Fluid Red Blood Cells 241 /uL; Body Fluid Tot Nucleated Cells 236 /uL
[2023-10-08 18:07] LABS: Body Fluid Appearance CLEAR; Body Fluid Clotted? NO CLOTS PRESENT; Body Fluid Color YELLOW; Eosinophils Body Fluid 7 %; Lymphocytes Body Fluid 51 %; MESO/MACRO/MONO Body Fluid 26 %; Neutrophils Body Fluid 16 %
== END ==
PROVIDERS: PCP Family Medicine; Visit Provider Internal Medicine
DX: J90 Pleural effusion, not elsewhere classified (principal)
CPT/HCPCS: 83615; 84157; 89051

== ENCOUNTER 2023-10-22 04:51 | Emergency (ER) | payer OTHER, MEDICAID, SELFPAY ==
[2023-09-17 22:15] VITALS: BMI 44.9
[2023-10-22] VITALS (34 sets, daily range): BP systolic 133–205; BP diastolic 74–116; PULSE 88–111; RESP 10–21; TEMP 36.9; O2SAT 90–98; BMI 44.9
--- NOTE | 2023-10-22 04:54 | ED.GENADULT ---
HPI - General Adult <Livia Mejia MD - Last Filed: 11/04/23 07:12> General Chief complaint: Nausea/Vomiting/Diarrhea Stated complaint: fluids on lungs, can't keep anything down Time Seen by Provider: 10/22/23 04:53 History of Present Illness HPI narrative: 42-year-old woman with complex medical history including recurrent idiopathic pleural effusion, asthma, sleep apnea not currently on CPAP, hypertension, depression, fibromyalgia, hypothyroidism, rheumatoid arthritis if multiple recent ER visits, hospital admission August 19 through the with nausea vomiting dyspnea with large transudative parapneumonic pleural effusion noted with 1800 cc removed via thoracentesis. She was admitted again on August 31 through with recurrent parapneumonic effusion this time 1500 cc fluid drained. Similar admit September 16 and with progressive shortness of breath, 1400 cc of transudative fluid removed. Since that time, she has had an outpatient appointment with outpatient side hemmer with thoracentesis in the office on October 07, 1600 cc removed. Mention was made of diastolic heart failure, not tolerating oral diuretics with gut edema and weight gain with complaints of increasing abdominal distention as well as dyspnea. There was a discussion of tunneled pleural catheter versus surgical pleurodesis for refractory cardiac effusions and stressing the importance of treating the underlying heart disease. Plan was for continued serial thoracentesis until further cardiac consultation and optimization of her heart failure was managed. Patient did have an echocardiogram on August 19 that showed normal left ventricular size with mild concentric left ventricular hypertrophy. Ejection fraction is preserved at 60-65%. Based on a dilated left atrium and rising proBNP she is felt to have diastolic heart failure. Patient presents again with increasing dyspnea, nausea and vomiting and complaints of abdominal bloating with early satiety. Patient has had diarrhea and describes aching ?all over?with her overall pain and discomfort rated at 7/10. Related Data Home Medications Medication Instructions Recorded Confirmed amitriptyline 150 mg tablet 150 mg PO BEDTIME 09/01/23 11/03/23 levothyroxine 150 mcg tablet 150 mcg PO QAM 09/01/23 11/03/23 pregabalin 200 mg capsule 200 mg PO TID 09/01/23 11/03/23 quetiapine 25 mg tablet 75 mg PO BEDTIME 09/01/23 11/03/23 Previous Rx's Medication Instructions Recorded albuterol sulfate 2.5 mg/3 mL 2.5 mg (3 mL) inhalation Q4-6H PRN 11/01/20 (0.083 %) solution for nebulization bronchospasm #90 mL tizanidine 4 mg tablet 1 mg (1/4 x 4 mg) PO 3XD PRN for 07/29/23 muscle spasm #270 tabs albuterol sulfate 90 mcg/actuation 2 puff inhalation Q4HP PRN 08/01/23 aerosol inhaler (Ventolin HFA) shortness of breath or wheezing #1 ea metoprolol tartrate 25 mg tablet 25 mg PO BID #180 tabs 09/10/23 ibuprofen 200 mg tablet (Motrin IB) 400 mg (2 x 200 mg) PO Q8H PRN 09/18/23 pain (scale score 4-6) #30 tabs trazodone 50 mg tablet 50 mg PO BEDTIME PRN sleep #30 tabs 09/18/23 furosemide 80 mg tablet 80 mg PO DAILY PRN weight gain #14 10/01/23 tabs bupropion HCl 150 mg 24 hr tablet, 150 mg PO DAILY #90 tabs 10/14/23 extended release duloxetine 60 mg capsule,delayed 60 mg PO DAILY #90 caps 10/21/23 release oxycodone 5 mg tablet 10 mg (2 x 5 mg) PO Q4H PRN pain 10/27/23 #240 tabs Allergies Allergy/AdvReac Type Severity Reaction Status Date / Time Penicillins [PENICILLINS] Allergy Mild Rash Verified 11/03/23 15:34 fluconazole [From DIFLUCAN] AdvReac Intermediate vomiting Verified 11/03/23 15:34 and abd pain codeine [CODEINE] AdvReac Mild NAUSEA Verified 11/03/23 15:34 Review of Systems <Livia Mejia MD - Last Filed: 11/04/23 07:12> Review of Systems Narrative: Pertinent positive and negative findings as per HPI Patient History <Livia Mejia MD - Last Filed: 11/04/23 07:12> Medical History Hot flashes due to menopause Onychomycosis Chronic pain due to neoplasm Functional memory problem BMI 45.0-49.9, adult History of colon polyps Insomnia disorder, with non-sleep disorder mental comorbidity Bilateral chronic knee pain Acute pain of right knee UTI (urinary tract infection) Paget's disease of bone Obstructive sleep apnea on CPAP Lymphedema of arm Essential hypertension Major depressive disorder Abrasion, corneal Migraines Fibromyalgia (~05/2017) History of PCR DNA positive for HSV1 (~2014) Hypothyroidism (~2008) Rheumatoid arthritis Asthma Depression Irritable bowel syndrome Diverticular disease (~2015) Gestational diabetes mellitus (GDM) (10/27/14) Morbid obesity with body mass index (BMI) of 40.0 to 44.9 in adult (11/08/10) Surgical History Status post laparoscopy (01/19/16) Status post laparoscopic supracervical hysterectomy (10/23/15) Status post delivery (12/30/14) Status post tubal ligation (12/30/14) Status post surgery (07/07/12) Family History Grandmother Stroke Grandfather Heart disease Cancer Father Hypertension Mother Hypothyroidism (acquired) Social History marital status: household members: spouse and children lives independently: Yes Smoking Status: Former smoker alcohol intake: current substance use type: does not use Smoking Status: Former smoker tobacco type: cigarettes and vaping alcohol intake frequency: holidays/special occasions only Substance Use Type: marijuana Exam <Livia Mejia MD - Last Filed: 11/04/23 07:12> Initial Vital Signs Initial Vital Signs: Vital Signs Pulse Rate 94 H 10/22/23 04:56 Pulse Oximetry 92 10/22/23 04:56 General: Chronically ill-appearing, dyspneic but able to speak in full sentences HEENT: Moist mucous membranes, normal sclera with reactive pupils, Neck: No JVD, supple Respiratory: Lungs with no significant wheeze and diminished breath sounds in the left lung base Cardiac: Regular rate and rhythm no murmurs no bruits Abdomen: Soft, mild diffuse tenderness to palpation without rebound or guarding, no flank pain. No obvious ascites Skin: Warm and dry, no rashes Neurologic: Grossly neurologically intact with no obvious asymmetries or abnormalities Extremities: No trauma, well perfused Psych: Cooperative, appropriate insight and affect <Karely Ceballos DO - Last Filed: 10/22/23 14:25> Initial Vital Signs Initial Vital Signs: Vital Signs Pulse Rate 94 H 10/22/23 04:56 Pulse Oximetry 92 10/22/23 04:56 Course <Livia Mejia MD - Last Filed: 11/04/23 07:12> Orders Ordered: Discontinued Medications Furosemide (Furosemide 40 Mg/4 Ml Vial) 40 mg IV NOW ONE Stop: 10/22/23 08:07 Last Admin: 10/22/23 08:10 Dose: 40 mg Documented By: CAM Hydromorphone HCl (Hydromorphone 0.5 Mg Inj) 0.5 mg IV Q15MIN PRN PRN Reason: Pain, Last Admin: 10/22/23 10:43 Dose: 0.5 mg Documented By: Admin: 10/22/23 08:01 Dose: 0.5 mg Documented By: Admin: 10/22/23 05:12 Dose: 0.5 mg Documented By: LEIGHA Sodium Chloride (Normal Saline 0.9%) 1,000 mls @ 1,000 mls/hr IV BOLUS ONE Stop: 10/22/23 06:02 Last Infusion: 10/22/23 06:30 Dose: Infused Documented By: Admin: 10/22/23 05:12 Dose: 1,000 mls/hr Documented By: LEIGHA Cefepime HCl 2 gm/ Sodium (Chloride) 100 mls @ 200 mls/hr IV NOW ONE Stop: 10/22/23 05:57 Last Infusion: 10/22/23 06:57 Dose: Infused Documented By: Admin: 10/22/23 06:12 Dose: 200 mls/hr Documented By: LEIGHA Lorazepam (Lorazepam 2 Mg/Ml Inj) 0.5 mg IV NOW ONE Stop: 10/22/23 08:07 Last Admin: 10/22/23 08:09 Dose: 0.5 mg Documented By: CAM Metoclopramide HCl (Metoclopramide 10 Mg/2 Ml Inj) 10 mg IV NOW ONE Stop: 10/22/23 05:04 Last Admin: 10/22/23 05:12 Dose: 10 mg Documented By: LEIGHA Metoprolol Tartrate (Metoprolol Ir 25 Mg Tablet) 25 mg PO NOW ONE Stop: 10/22/23 13:19 Last Admin: 10/22/23 13:31 Dose: 25 mg Documented By: JULIO Ondansetron HCl (Ondansetron 4 Mg/2 Ml Inj) 4 mg IV NOW ONE Stop: 10/22/23 10:41 Last Admin: 10/22/23 10:43 Dose: 4 mg Documented By: BRANDO Ondansetron HCl (Ondansetron 4 Mg/2 Ml Inj) 4 mg IV NOW ONE Stop: 10/22/23 14:14 Last Admin: 10/22/23 14:16 Dose: 4 mg Documented By: JULIO Vital Signs Vital signs: Vital Signs - 8 hr 10/22/23 06:30 10/22/23 06:31 10/22/23 06:31 Temperature Pulse Rate 97 H 98 H Respiratory Rate Blood Pressure 195/107 H Pulse Oximetry 97 97 Oxygen Delivery Method 10/22/23 06:55 10/22/23 06:55 10/22/23 07:00 Temperature Pulse Rate 99 H 100 H Respiratory Rate 14 12 Blood Pressure 201/106 H Pulse Oximetry 95 96 Oxygen Delivery Method 10/22/23 07:01 10/22/23 07:01 10/22/23 07:20 Temperature Pulse Rate 100 H Respiratory Rate 14 Blood Pressure 192/105 H 189/115 H Pulse Oximetry 96 Oxygen Delivery Method 10/22/23 07:20 10/22/23 07:30 10/22/23 07:30 Temperature Pulse Rate 100 H 103 H Respiratory Rate 16 19 Blood Pressure 172/108 H Pulse Oximetry 94 92 Oxygen Delivery Method 10/22/23 07:51 10/22/23 07:51 10/22/23 08:00 Temperature Pulse Rate 106 H Respiratory Rate Blood Pressure 187/106 H 194/116 H Pulse Oximetry 95 Oxygen Delivery Method 10/22/23 08:00 10/22/23 08:26 10/22/23 08:26 Temperature 98.4 F Pulse Rate 102 H 105 H Respiratory Rate 10 L 21 Blood Pressure 180/97 H 180/97 H Pulse Oximetry 95 94 Oxygen Delivery Method 10/22/23 08:26 10/22/23 08:30 10/22/23 08:35 Temperature Pulse Rate 104 H 105 H 110 H Respiratory Rate Blood Pressure Pulse Oximetry 93 94 95 Oxygen Delivery Method 10/22/23 08:35 10/22/23 09:00 06/19/24 09:30 Temperature Pulse Rate 110 H 111 H Respiratory Rate Blood Pressure 167/99 H Pulse Oximetry 92 Oxygen Delivery Method 10/22/23 09:43 10/22/23 09:43 10/22/23 09:44 Temperature Pulse Rate 106 H Respiratory Rate 16 Blood Pressure 151/94 H 137/74 Pulse Oximetry 94 Oxygen Delivery Method 10/22/23 09:44 10/22/23 10:00 10/22/23 10:00 Temperature Pulse Rate 106 H 109 H Respiratory Rate 18 15 Blood Pressure 157/82 H Pulse Oximetry 94 91 Oxygen Delivery Method 10/22/23 10:30 10/22/23 10:30 10/22/23 11:00 Temperature Pulse Rate 109 H Respiratory Rate 15 Blood Pressure 166/80 H 151/83 H Pulse Oximetry 91 Oxygen Delivery Method 10/22/23 11:00 10/22/23 11:30 10/22/23 11:30 Temperature Pulse Rate 103 H 105 H Respiratory Rate 14 15 Blood Pressure 171/98 H Pulse Oximetry 92 91 Oxygen Delivery Method 10/22/23 12:00 10/22/23 12:00 10/22/23 12:30 Temperature Pulse Rate 108 H Respiratory Rate 14 Blood Pressure 178/107 H 189/103 H Pulse Oximetry 90 L Oxygen Delivery Method 10/22/23 12:30 10/22/23 13:00 10/22/23 13:00 Temperature Pulse Rate 106 H 105 H Respiratory Rate 13 14 Blood Pressure 205/101 H Pulse Oximetry 91 90 L Oxygen Delivery Method 10/22/23 13:30 10/22/23 13:32 10/22/23 13:32 Temperature Pulse Rate 101 H 100 H Respiratory Rate 19 14 Blood Pressure 150/87 H Pulse Oximetry 93 93 Oxygen Delivery Method Room Air 10/22/23 14:00 10/22/23 14:00 Temperature Pulse Rate 100 H Respiratory Rate 17 Blood Pressure 133/83 Pulse Oximetry 93 Oxygen Delivery Method <Karely Ceballos DO - Last Filed: 10/22/23 14:25> Orders Ordered: Discontinued Medications Furosemide (Furosemide 40 Mg/4 Ml Vial) 40 mg IV NOW ONE Stop: 10/22/23 08:07 Last Admin: 10/22/23 08:10 Dose: 40 mg Documented By: SPF Hydromorphone HCl (Hydromorphone 0.5 Mg Inj) 0.5 mg IV Q15MIN PRN PRN Reason: Pain, Last Admin: 10/22/23 10:43 Dose: 0.5 mg Documented By: Admin: 10/22/23 08:01 Dose: 0.5 mg Documented By: Admin: 10/22/23 05:12 Dose: 0.5 mg Documented By: LEIGHA Sodium Chloride (Normal Saline 0.9%) 1,000 mls @ 1,000 mls/hr IV BOLUS ONE Stop: 10/22/23 06:02 Last Infusion: 10/22/23 06:30 Dose: Infused Documented By: Admin: 10/22/23 05:12 Dose: 1,000 mls/hr Documented By: LEIGHA Cefepime HCl 2 gm/ Sodium (Chloride) 100 mls @ 200 mls/hr IV NOW ONE Stop: 10/22/23 05:57 Last Infusion: 10/22/23 06:57 Dose: Infused Documented By: Admin: 10/22/23 06:12 Dose: 200 mls/hr Documented By: LEIGHA Lorazepam (Lorazepam 2 Mg/Ml Inj) 0.5 mg IV NOW ONE Stop: 10/22/23 08:07 Last Admin: 10/22/23 08:09 Dose: 0.5 mg Documented By: CAM Metoclopramide HCl (Metoclopramide 10 Mg/2 Ml Inj) 10 mg IV NOW ONE Stop: 10/22/23 05:04 Last Admin: 10/22/23 05:12 Dose: 10 mg Documented By: LEIGHA Metoprolol Tartrate (Metoprolol Ir 25 Mg Tablet) 25 mg PO NOW ONE Stop: 10/22/23 13:19 Last Admin: 10/22/23 13:31 Dose: 25 mg Documented By: JULIO Ondansetron HCl (Ondansetron 4 Mg/2 Ml Inj) 4 mg IV NOW ONE Stop: 10/22/23 10:41 Last Admin: 10/22/23 10:43 Dose: 4 mg Documented By: BRANDO Ondansetron HCl (Ondansetron 4 Mg/2 Ml Inj) 4 mg IV NOW ONE Stop: 10/22/23 14:14 Last Admin: 10/22/23 14:16 Dose: 4 mg Documented By: JULIO Vital Signs Vital signs: Vital Signs - 8 hr 10/22/23 06:30 10/22/23 06:31 10/22/23 06:31 Temperature Pulse Rate 97 H 98 H Respiratory Rate Blood Pressure 195/107 H Pulse Oximetry 97 97 Oxygen Delivery Method 10/22/23 06:55 10/22/23 06:55 10/22/23 07:00 Temperature Pulse Rate 99 H 100 H Respiratory Rate 14 12 Blood Pressure 201/106 H Pulse Oximetry 95 96 Oxygen Delivery Method 10/22/23 07:01 10/22/23 07:01 10/22/23 07:20 Temperature Pulse Rate 100 H Respiratory Rate 14 Blood Pressure 192/105 H 189/115 H Pulse Oximetry 96 Oxygen Delivery Method 10/22/23 07:20 10/22/23 07:30 10/22/23 07:30 Temperature Pulse Rate 100 H 103 H Respiratory Rate 16 19 Blood Pressure 172/108 H Pulse Oximetry 94 92 Oxygen Delivery Method 10/22/23 07:51 10/22/23 07:51 10/22/23 08:00 Temperature Pulse Rate 106 H Respiratory Rate Blood Pressure 187/106 H 194/116 H Pulse Oximetry 95 Oxygen Delivery Method 10/22/23 08:00 10/22/23 08:26 10/22/23 08:26 Temperature 98.4 F Pulse Rate 102 H 105 H Respiratory Rate 10 L 21 Blood Pressure 180/97 H 180/97 H Pulse Oximetry 95 94 Oxygen Delivery Method 10/22/23 08:26 10/22/23 08:30 10/22/23 08:35 Temperature Pulse Rate 104 H 105 H 110 H Respiratory Rate Blood Pressure Pulse Oximetry 93 94 95 Oxygen Delivery Method 10/22/23 08:35 10/22/23 09:00 10/22/23 09:30 Temperature Pulse Rate 110 H 111 H Respiratory Rate Blood Pressure 167/99 H Pulse Oximetry 92 Oxygen Delivery Method 10/22/23 09:43 10/22/23 09:43 10/22/23 09:44 Temperature Pulse Rate 106 H Respiratory Rate 16 Blood Pressure 151/94 H 137/74 Pulse Oximetry 94 Oxygen Delivery Method 10/22/23 09:44 10/22/23 10:00 10/22/23 10:00 Temperature Pulse Rate 106 H 109 H Respiratory Rate 18 15 Blood Pressure 157/82 H Pulse Oximetry 94 91 Oxygen Delivery Method 10/22/23 10:30 10/22/23 10:30 10/22/23 11:00 Temperature Pulse Rate 109 H Respiratory Rate 15 Blood Pressure 166/80 H 151/83 H Pulse Oximetry 91 Oxygen Delivery Method 10/22/23 11:00 10/22/23 11:30 10/22/23 11:30 Temperature Pulse Rate 103 H 105 H Respiratory Rate 14 15 Blood Pressure 171/98 H Pulse Oximetry 92 91 Oxygen Delivery Method 10/22/23 12:00 10/22/23 12:00 10/22/23 12:30 Temperature Pulse Rate 108 H Respiratory Rate 14 Blood Pressure 178/107 H 189/103 H Pulse Oximetry 90 L Oxygen Delivery Method 10/22/23 12:30 10/22/23 13:00 10/22/23 13:00 Temperature Pulse Rate 106 H 105 H Respiratory Rate 13 14 Blood Pressure 205/101 H Pulse Oximetry 91 90 L Oxygen Delivery Method 10/22/23 13:30 10/22/23 13:32 10/22/23 13:32 Temperature Pulse Rate 101 H 100 H Respiratory Rate 19 14 Blood Pressure 150/87 H Pulse Oximetry 93 93 Oxygen Delivery Method Room Air 10/22/23 14:00 10/22/23 14:00 Temperature Pulse Rate 100 H Respiratory Rate 17 Blood Pressure 133/83 Pulse Oximetry 93 Oxygen Delivery Method Medical Decision Making <Livia Mejia MD - Last Filed: 11/04/23 07:12> Lab Data 10/22/23 05:00 10/22/23 05:00 Labs: Lab Results 10/22/23 10/22/23 10/22/23 Range/Units 05:00 05:06 07:51 WBC 16.2 H (4.5-11.0) X10^3/uL RBC 5.57 H (4.0-5.2) X10^6/uL Hgb 15.5 (12.0-16.0) g/dL Hct 47.0 H (36-46) % MCV 84.3 (80-100) fL MCH 27.8 (26-34) PG MCHC 33.0 (30-36) % RDW 16.1 H (11.6-14.8) % Plt Count 256 (150-400) X10^3/uL Neut % (Auto) 93.6 H (50-75) % Lymph % (Auto) 3.8 L (25-40) % [place]olls % (Auto) 2.0 L (3-14) % Eos % (Auto) 0.2 L (2-4) % Baso % (Auto) 0.4 (0-2) % Neut # (Auto) 29101 H (4160-2542) /uL Lymph # (Auto) 600 L (2841-8223) /uL [place] # (Auto) 300 (0-900) /uL Eos # (Auto) 0 (0-450) /uL Baso # (Auto) 100 (0-100) /uL Sodium 137 (137-145) mmol/L Potassium 4.5 (3.4-5.1) mmol/L Chloride 101 (98-107) mmol/L Carbon Dioxide 29 (22-32) mmol/L BUN 17 (7-17) mg/dL Creatinine 0.66 (0.52-1.04) mg/dL Estimated GFR > 60 (>60) mL/min BUN/Creatinine Ratio 25.8 H (6-22) Glucose 140 H (70-100) mg/dL Lactate 1.5 (0.7-2.1) mmol/L Calcium 9.3 (8.4-10.2) mg/dL Magnesium 2.1 (1.6-2.3) mg/dL Total Bilirubin 0.8 (0.2-1.3) mg/dL AST 32 (14-36) IU/L ALT 20 (<35) IU/L Alkaline Phosphatase 128 H (38-126) U/L Troponin I < 0.012 (0.01-0.034) ng/mL NT-Pro-B Natriuret Pep 1460 H (<125) pg/mL Total Protein 8.4 H (6.3-8.2) g/dL Albumin 4.8 (3.5-5.0) g/dL Globulin 3.6 (1.7-4.1) g/dL Albumin/Globulin Ratio 1.3 (1.0-2.8) Lipase 24 (23-300) U/L Urine Color Yellow Urine Appearance Clear Urine pH 5.5 (4.5-8.0) Ur Specific [place] 1.010 (1.000-1.035) Urine Protein Trace H (Negative) Urine Glucose (UA) Negative (Negative) g/dL Urine Ketones Negative (NEGATIVE) Urine Occult Blood Trace-intact (Negative) Urine Nitrate Negative (Negative) Urine Bilirubin Negative (NEGATIVE) Urine Urobilinogen 0.2 (0.2) E.U./dL Ur Leukocyte Esterase Negative (NEGATIVE) Urine RBC 0-1/hpf (0-5/HPF) Urine WBC 1-5/hpf (0-5/HPF) Ur Squamous Epith Cells 1-5 /hpf (0-5/HPF) Urine Bacteria Occasional (0-1) (None) Ur Culture Indicated? Cult not indicated Vol Urine Centrifuged 10ml (spun) MDM Narrative Medical decision making narrative: CC:nausea and vomiting, worsening dyspnea Complicating co-morbidities: Recurrent persistent left pleural effusion, 4 thoracentesis over the last 8 weeks, another scheduled presumably outpatient for later today may need to be accomplished inpatient Data collected from: patient Medical records reviewed: Extensive history including admissions, repeat thoracentesis, pulmonary consult and multiple hospitalizations reviewed in the HPI above. ProBNP has gradually increased in as of September 16 was up to 9 O2 Pleural fluid analysis has not been positive for cytology. Continues to appear transudative Differential considered: Volume overload with gut edema causing persistent nausea and vomiting, recurrent pleural effusion presumably secondary to congestive heart failure. No evidence of neoplastic source for her recurrent pleural effusion Exam documented above, pertinent findings include: Appears quite uncomfortable, tachypneic, diminished lung sounds on the left, mildly diffusely tender abdomen without obvious ascites, minimal lower extremity edema Lab Test results independently reviewed as above. Pertinent findings: CBC is elevated white count with 16.2 and significant left shift. This is a new finding. After most recent thoracentesis she was on levofloxacin for 5 days. Independently reviewed EKG: Imaging studies independently reviewed: 08/20/23 Echo: + + :Name: TWIN INMAN Study Date: 08/21/2023 Height: 60 in : :[facility] ReadingLocation: Weight: 230 lb : : Gender: Female BSA: 2.0 m2 : :: 1980 Age: 42 yrs BP: 148/80 mmHg: :Reason For Study: LARGE PLEURAL EFFUSION, R/O CONGESTIVE HEART : :FAILURE : :Ordering Physician: ALEX, : :JULIA Arias Performed By: Nancy Mullins : :Referring: JULIA JOHNSON : + + Interpretation Summary The ejection fraction is estimated to be 60-65%. There is no significant valvular heart disease. Procedure: A two-dimensional transthoracic echocardiogram with color flow and Doppler was performed. The study quality was technically adequate. Comparison is made with the echocardiogram of 02/28/2020. The patient was in sinus rhythm with heart rates between 80-85 bpm during the exam. Left Ventricle: The left ventricle is normal in size. There is mild concentric left ventricular hypertrophy. The ejection fraction is estimated to be 60-65%. Left ventricular wall motion is normal. Diastolic parameters suggest probable normal left ventricular diastolic function and normal filling pressures. Right Ventricle: The right ventricle is normal in size and function. Atria: The left atrium is mildly dilated. Right atrial size is normal. There is no Doppler evidence for an interatrial shunt. Mitral Valve: The mitral valve leaflets appear mildly thickened, but open well. There is trace mitral regurgitation. Aortic Valve: The aortic valve is grossly normal. The aortic valve opens well. There is no aortic valve stenosis. No aortic regurgitation is present. Tricuspid Valve: The tricuspid valve is normal in structure and function. There is trace tricuspid regurgitation. Pulmonic Valve: The pulmonic valve leaflets are thin and pliable; valve motion is normal. There is no pulmonic valvular regurgitation. Great Vessels: The aortic root is normal size. The dimensions of the ascending aorta are normal. The IVC is of normal diameter and collapses greater than 50% with a sniff. This suggests a low right atrial pressure of 3 mm Hg. Pericardium/ Pleura There is no pericardial effusion. There is a large left- sided pleural effusion. Chest x-ray today shows recurrent left side pleural effusion CT scan of the chest abdomen pelvis: Consultations: Treatments: Initially started fluid bolus given a complaints of profuse vomiting however after 300 cc and in light of extensive chart review this was discontinued. With new leukocytosis, lactic acid and blood cultures are ordered and cefepime be initiated, concern for developing empyema given her recurrent thoracentesis Dilaudid and Reglan do seem to have been helping with the pain and nausea Re-evaluations:6am discussed with patient my concerns regarding her post sling recurrent effusion, the persistent nausea and abdominal bloating that has prohibited her from taking diuretics for the last 6 weeks, the new leukocytosis and overall lack of consolidating diagnosis. Discussed with her a possibility of transfer to a larger facility with in-house Cardiology, pulmonology and surgery that could all collaborate in real-time. She was amenable to that idea. Patient be turned over to daytime physician. CT scan has been ordered and is currently pending Discussion: <Karely Ceballos DO - Last Filed: 10/22/23 14:25> Lab Data Labs: Lab Results 10/22/23 10/22/23 10/22/23 Range/Units 05:00 05:06 07:51 WBC 16.2 H (4.5-11.0) X10^3/uL RBC 5.57 H (4.0-5.2) X10^6/uL Hgb 15.5 (12.0-16.0) g/dL Hct 47.0 H (36-46) % MCV 84.3 (80-100) fL MCH 27.8 (26-34) PG MCHC 33.0 (30-36) % RDW 16.1 H (11.6-14.8) % Plt Count 256 (150-400) X10^3/uL Neut % (Auto) 93.6 H (50-75) % Lymph % (Auto) 3.8 L (25-40) % [place]olls % (Auto) 2.0 L (3-14) % Eos % (Auto) 0.2 L (2-4) % Baso % (Auto) 0.4 (0-2) % Neut # (Auto) 23250 H (2241-0905) /uL Lymph # (Auto) 600 L (7703-8815) /uL [place] # (Auto) 300 (0-900) /uL Eos # (Auto) 0 (0-450) /uL Baso # (Auto) 100 (0-100) /uL Sodium 137 (137-145) mmol/L Potassium 4.5 (3.4-5.1) mmol/L Chloride 101 (98-107) mmol/L Carbon Dioxide 29 (22-32) mmol/L BUN 17 (7-17) mg/dL Creatinine 0.66 (0.52-1.04) mg/dL Estimated GFR > 60 (>60) mL/min BUN/Creatinine Ratio 25.8 H (6-22) Glucose 140 H (70-100) mg/dL Lactate 1.5 (0.7-2.1) mmol/L Calcium 9.3 (8.4-10.2) mg/dL Magnesium 2.1 (1.6-2.3) mg/dL Total Bilirubin 0.8 (0.2-1.3) mg/dL AST 32 (14-36) IU/L ALT 20 (<35) IU/L Alkaline Phosphatase 128 H (38-126) U/L Troponin I < 0.012 (0.01-0.034) ng/mL NT-Pro-B Natriuret Pep 1460 H (<125) pg/mL Total Protein 8.4 H (6.3-8.2) g/dL Albumin 4.8 (3.5-5.0) g/dL Globulin 3.6 (1.7-4.1) g/dL Albumin/Globulin Ratio 1.3 (1.0-2.8) Lipase 24 (23-300) U/L Urine Color Yellow Urine Appearance Clear Urine pH 5.5 (4.5-8.0) Ur Specific [place] 1.010 (1.000-1.035) Urine Protein Trace H (Negative) Urine Glucose (UA) Negative (Negative) g/dL Urine Ketones Negative (NEGATIVE) Urine Occult Blood Trace-intact (Negative) Urine Nitrate Negative (Negative) Urine Bilirubin Negative (NEGATIVE) Urine Urobilinogen 0.2 (0.2) E.U./dL Ur Leukocyte Esterase Negative (NEGATIVE) Urine RBC 0-1/hpf (0-5/HPF) Urine WBC 1-5/hpf (0-5/HPF) Ur Squamous Epith Cells 1-5 /hpf (0-5/HPF) Urine Bacteria Occasional (0-1) (None) Ur Culture Indicated? Cult not indicated Vol Urine Centrifuged 10ml (spun) Imaging Data CT scan - abdomen/pelvis: Radiologist's Impression: PROCEDURE: CT CHEST ABD PEL W CON INDICATIONS: Rec pleural effusion, nausea/vomiting, GI edema vs ascites TECHNIQUE: After the administration of intravenous contrast, 5 mm thick sections acquired from the lung apices to the symphysis. 5 mm coronal and sagittal reformats were performed, with additional 7 mm MIP reformats through the lungs. For radiation dose reduction, the following was used: automated exposure control, adjustment of mA and/or kV according to patient size. COMPARISON: Located Within [facility], CT, ABDOMEN/PELVIS WITH CONTRAST, 06/20/2016, 14:47. Located Within [facility], CT, CT CHEST W CON, 09/02/2023, 10:24. Located Within [facility], CT, CT CHEST ABD PEL W CON, 10/03/2019, 12:30. FINDINGS: Image quality: Excellent. CHEST: Lower Neck: No enlarged lymph nodes. Thyroid: No thyroid nodules which require sonographic follow up, per consensus guidelines. Axillae: No enlarged lymph nodes. Chest Wall: Unremarkable. Lungs and Pleura: [id number] left effusion, increased compared to prior exam. Areas superimposed consolidation are present. Heart: Heart size is normal. No pericardial effusion. Thoracic Vessels: The aorta and pulmonary arteries demonstrate normal size. Mediastinum and Corin: No enlarged lymph nodes. Esophagus: No wall thickening. Mild hiatal hernia. ABDOMEN: Liver: No solid mass. Hepatic steatosis is present. Gallbladder: No radiopaque gallstones or wall thickening. Biliary ducts: No biliary dilation. Pancreas: No ductal dilation. Spleen: Size is within normal limits. Adrenal Glands: No adrenal nodules. Kidneys and Ureters: No hydronephrosis. No solid mass. No complex renal cystic lesion which requires follow up. Stomach and Bowel: Colonic diverticula are present. There is an overall appearance thickening within the colon predominantly the right and transverse, less so in the left colon. Peritoneum: No abnormal intraperitoneal fluid. No free air. Ventral Wall: No significant ventral hernia. Abdominal Nodes: No retroperitoneal or mesenteric adenopathy by size criteria. Vessels: Aorta and inferior vena cava are normal in size. PELVIS: Pelvic Organs: Unremarkable. Bladder: No bladder wall thickening, accounting for underdistention. Pelvic Nodes: No enlarged lymph nodes. Miscellaneous: No inguinal hernias are seen. Bones: No aggressive osseous abnormality. IMPRESSION: Thickened appearance of predominantly the right and transverse colon. While there is an element of incomplete distention, early colitis should be considered given appearance of overall wall thickening. This could be reflective of infection or inflammation. Diverticula are present although predominantly in the left colon. Mild moderate effusion with superimposed consolidation. Dictated by: Nancy Khan M.D. on 10/22/2023 at 8:19 Chest x-ray: Radiologist's Impression: PROCEDURE: XR CHEST 2V INDICATIONS: recurrent effusion and cardiomegaly TECHNIQUE: 2 views of the chest were acquired. COMPARISON: Located Within [facility], , XR CHEST 1V, 09/17/2023, 16:51. FINDINGS: Surgical changes and devices: None. Lungs and pleura: Moderate left pleural effusion is seen with complete atelectasis of left lower lobe. Pulmonary vascular congestion is seen. No pneumothorax. Mediastinum: Mediastinal contours are normal. Heart size is enlarged. Bones and chest wall: No suspicious bony abnormalities. Soft tissues appear unremarkable. IMPRESSION: Moderate left pleural effusion. Pulmonary vascular congestion and cardiomegaly. No gross pneumothorax. Dictated by: Patrick Leroy M.D. on 10/22/2023 at 8:22 MDM Narrative Medical decision making narrative: CC:nausea and vomiting, worsening dyspnea Complicating co-morbidities: Recurrent persistent left pleural effusion, 4 thoracentesis over the last 8 weeks, another scheduled presumably outpatient for later today may need to be accomplished inpatient Data collected from: patient Medical records reviewed: Extensive history including admissions, repeat thoracentesis, pulmonary consult and multiple hospitalizations reviewed in the HPI above. ProBNP has gradually increased in as of September 16 was up to 9 O2 Pleural fluid analysis has not been positive for cytology. Continues to appear transudative Differential considered: Volume overload with gut edema causing persistent nausea and vomiting, recurrent pleural effusion presumably secondary to congestive heart failure. No evidence of neoplastic source for her recurrent pleural effusion Exam documented above, pertinent findings include: Appears quite uncomfortable, tachypneic, diminished lung sounds on the left, mildly diffusely tender abdomen without obvious ascites, minimal lower extremity edema Lab Test results independently reviewed as above. Pertinent findings: CBC is elevated white count with 16.2 and significant left shift. This is a new finding. After most recent thoracentesis she was on levofloxacin for 5 days. Independently reviewed EKG: Imaging studies independently reviewed: 08/20/23 Echo: + + :Name: TWIN INMAN Study Date: 08/21/2023 Height: 60 in : :[facility] ReadingLocation: Weight: 230 lb : : Gender: Female BSA: 2.0 m2 : :: 1980 Age: 42 yrs BP: 148/80 mmHg: :Reason For Study: LARGE PLEURAL EFFUSION, R/O CONGESTIVE HEART : :FAILURE : :Ordering Physician: ALEX, : :JULIA Arias Performed By: Nancy Mullins : :Referring: JULIA JOHNSON A : + + Interpretation Summary The ejection fraction is estimated to be 60-65%. There is no significant valvular heart disease. Procedure: A two-dimensional transthoracic echocardiogram with color flow and Doppler was performed. The study quality was technically adequate. Comparison is made with the echocardiogram of 02/28/2020. The patient was in sinus rhythm with heart rates between 80-85 bpm during the exam. Left Ventricle: The left ventricle is normal in size. There is mild concentric left ventricular hypertrophy. The ejection fraction is estimated to be 60-65%. Left ventricular wall motion is normal. Diastolic parameters suggest probable normal left ventricular diastolic function and normal filling pressures. Right Ventricle: The right ventricle is normal in size and function. Atria: The left atrium is mildly dilated. Right atrial size is normal. There is no Doppler evidence for an interatrial shunt. Mitral Valve: The mitral valve leaflets appear mildly thickened, but open well. There is trace mitral regurgitation. Aortic Valve: The aortic valve is grossly normal. The aortic valve opens well. There is no aortic valve stenosis. No aortic regurgitation is present. Tricuspid Valve: The tricuspid valve is normal in structure and function. There is trace tricuspid regurgitation. Pulmonic Valve: The pulmonic valve leaflets are thin and pliable; valve motion is normal. There is no pulmonic valvular regurgitation. Great Vessels: The aortic root is normal size. The dimensions of the ascending aorta are normal. The IVC is of normal diameter and collapses greater than 50% with a sniff. This suggests a low right atrial pressure of 3 mm Hg. Pericardium/ Pleura There is no pericardial effusion. There is a large left- sided pleural effusion. Chest x-ray today shows recurrent left side pleural effusion CT scan of the chest abdomen pelvis: Colitis with recurrent Consultations: Treatments: Initially started fluid bolus given a complaints of profuse vomiting however after 300 cc and in light of extensive chart review this was discontinued. With new leukocytosis, lactic acid and blood cultures are ordered and cefepime be initiated, concern for developing empyema given her recurrent thoracentesis Dilaudid and Reglan do seem to have been helping with the pain and nausea Re-evaluations:6am discussed with patient my concerns regarding her post sling recurrent effusion, the persistent nausea and abdominal bloating that has prohibited her from taking diuretics for the last 6 weeks, the new leukocytosis and overall lack of consolidating diagnosis. Discussed with her a possibility of transfer to a larger facility with in-house Cardiology, pulmonology and surgery that could all collaborate in real-time. She was amenable to that idea. Patient be turned over to daytime physician. CT scan has been ordered and is currently pending Discussion: Dr. Ceballos Patient signed out to me by Dr. Mejia I have seen evaluated patient myself she continues to be nauseous despite Zofran but no vomiting. She does have decreased breath sounds on the left side and mild diffuse abdominal tenderness. CT does shows recurrent [id number] pleural effusion with areas of consolidation along with diffuse colitis. She has leukocytosis of 16 she has been given a dose of cefepime. She has not hypoxic but does have obvious dyspnea with exertion in the ED. BNP is elevated today 1460 previously 900. She is given 40 mg of Lasix here in the ED as well. Patient has now had recurrent parapneumonic transudative pleural effusions 4 over the last 8 weeks. She is not hypoxic, she is mildly tachycardic, and dyspnea on exertion. Thought that she needs to be transferred to higher level of care for further evaluation of significant recurrent pleural effusions also PleurX catheter maybe indicated. She is unable to keep p.o. meds down due to severe nausea and new colitis. She is received multiple doses of Dilaudid in the ED. Zofran did not help her at home she has given a dose of Reglan here which did help mildly. She was given Ativan which did help. [facility] full 12:50 Dr Germain pulmonolgy at [facility] updated patient's symptoms test results happy to consult if needed but admit to medicine 13:05 Dr. Negron updated on patient's symptoms test results kindly accepts patient Patient reports that it is presumed that she is rheumatoid arthritis but no positive test and she has not currently being treated. She continues to be tachycardic. Oxygen level 91% after Lasix. Critical Care Time <Karely Ceballos, DO - Last Filed: 10/22/23 14:25> Critical Care Time Critical Care Time: Yes Total Critical Care Time: 35 Attestation: The high probability of a clinically significant, sudden or life threatening deterioration of the [cardiovascular] system(s) required my full and direct attention, intervention and personal management. The aggregate critical care time was 35 minutes. This time is in addition to time spent performing reported procedures but includes the following: [x] Data Review and interpretation [x] Patient assessment and monitoring of vital signs [x] Documentation [x] Medication orders and management Discharge Plan Departure Patient Disposition: [facility] Clinical Impression: Colitis, Recurrent left pleural effusion Prescriptions: No Action albuterol sulfate 2.5 mg /3 mL (0.083 %) solution for nebulization 2.5 mg INHALATION Q4-6H PRN (Reason: bronchospasm) Qty: 90 3RF tizanidine 4 mg tablet 1 mg PO 3XD PRN (Reason: for muscle spasm) Qty: 270 1RF albuterol sulfate [Ventolin HFA] 90 mcg/actuation HFA aerosol inhaler 2 puff INHALATION Q4HP PRN (Reason: shortness of breath or wheezing) Qty: 1 5RF Rx Instructions: takes in absence of nebulizer metoprolol tartrate 25 mg tablet 25 mg PO BID Qty: 180 1RF Patient Comments: pt reports taking med at bedtime only 25 mg bupropion HCl 150 mg tablet extended release 24 hr 150 mg PO DAILY Qty: 90 1RF Patient Comments: Takes at bedtime Rx Instructions: TAKE 1 TABLET (150 MG) ORALLY DAILY duloxetine 60 mg capsule,delayed release(DR/EC) 60 mg PO DAILY Qty: 90 0RF Patient Comments: Takes at bedtime oxycodone 5 mg tablet 10 mg PO Q4H PRN (Reason: pain) Qty: 240 0RF ibuprofen [Motrin IB] 200 mg tablet 400 mg PO Q8H PRN (Reason: pain (scale score 4-6)) Qty: 30 0RF trazodone 50 mg tablet 50 mg PO BEDTIME PRN (Reason: sleep) Qty: 30 0RF quetiapine 25 mg tablet 75 mg PO BEDTIME Rx Instructions: TAKE 3 TABLETS BY MOUTH EVERY NIGHT AT BEDTIME. DUE FOR APPOINTMENT amitriptyline 150 mg tablet 150 mg PO BEDTIME Patient Comments: Takes at bedtime Rx Instructions: TAKE 1 TABLET (150 MG) ORALLY DAILY AT BEDTIME levothyroxine 150 mcg tablet 150 mcg PO QAM Patient Comments: Takes at bedtime pregabalin 200 mg capsule 200 mg PO TID Rx Instructions: Take 1 capsule by mouth 3 times daily furosemide 80 mg tablet 80 mg PO DAILY PRN (Reason: weight gain) Qty: 14 0RF Rx Instructions: use daily until 10lb weight loss; weigh daily Referrals: Eduard Arreguin DO [Primary Care Provider] -
[2023-10-22 05:12] LABS: Add Manual Diff / Slide Review NO; Basophils Absolute Auto 100 /uL (0-100); Basophils Percent Auto 0.4 % (0-2); Eosinophils Absolute Auto 0 /uL (0-450); Eosinophils Percent Auto 0.2 % (2-4); Hemoglobin 15.5 g/dL (12.0-16.0); Lymphocytes Absolute Auto 600 /uL (1100-4500); Lymphocytes Percent Auto 3.8 % (25-40); Mean Corpuscular Hemoglobin 27.8 PG (26-34); Mean Corpuscular Volume 84.3 fL (80-100); Monocytes Absolute Auto 300 /uL (0-900); Neutrophils Absolute Auto 15200 /uL (1500-7000); Neutrophils Percent Auto 93.6 % (50-75); Platelet Count 256 X10^3/uL (150-400); Red Blood Cell Count 5.57 X10^6/uL (4.0-5.2); Red Cell Distribution Width 16.1 % (11.6-14.8); White Blood Cell Count 16.2 X10^3/uL (4.5-11.0)
[2023-10-22] MEDS: HYDROMORPHONE 0.5 MG INJ IV ×3 (05:12→10:43)
[2023-10-22] MEDS: SODIUM CHLORIDE 0.9% 1,000 ML 1000 ML IV (05:12)
[2023-10-22] MEDS: METOCLOPRAMIDE 10 MG/2 ML INJ IV (05:12)
--- NOTE | 2023-10-22 05:16 | DI.RAD.S_ITS ---
PROCEDURE: XR CHEST 2V INDICATIONS: recurrent effusion and cardiomegaly TECHNIQUE: 2 views of the chest were acquired. COMPARISON: [facility], CR, XR CHEST 1V, 09/17/2023, 16:51. FINDINGS: Surgical changes and devices: None. Lungs and pleura: Moderate left pleural effusion is seen with complete atelectasis of left lower lobe. Pulmonary vascular congestion is seen. No pneumothorax. Mediastinum: Mediastinal contours are normal. Heart size is enlarged. Bones and chest wall: No suspicious bony abnormalities. Soft tissues appear unremarkable. IMPRESSION: Moderate left pleural effusion. Pulmonary vascular congestion and cardiomegaly. No gross pneumothorax. Dictated by: Patrick Leroy M.D. on 10/22/2023 at 8:22 Approved by: Patrick Leroy M.D. on 10/22/2023 at 8:22
--- NOTE | 2023-10-22 05:43 | EKG_ITS ---
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
[2023-10-22 05:46] LABS: Alanine Aminotransferase 20 IU/L (<35); Albumin 4.8 g/dL (3.5-5.0); Albumin Globulin Ratio 1.3 (1.0-2.8); Alkaline Phosphatase 128 U/L (38-126); Aspartate Aminotransferase 32 IU/L (14-36); BUN Creatinine Ratio 25.8 (6-22); Bilirubin Total 0.8 mg/dL (0.2-1.3); Blood Urea Nitrogen 17 mg/dL (7-17); Calcium 9.3 mg/dL (8.4-10.2); Carbon Dioxide 29 mmol/L (22-32); Chloride 101 mmol/L (98-107); Estimated Glomerular Filt Rate > 60 mL/min (>60); Globulin 3.6 g/dL (1.7-4.1); Glucose 140 mg/dL (70-100); HEMOLYSIS 38 (0-50); Lipase 24 U/L (23-300); Magnesium 2.1 mg/dL (1.6-2.3); Potassium 4.5 mmol/L (3.4-5.1); Sodium 137 mmol/L (137-145); Total Protein 8.4 g/dL (6.3-8.2)
--- NOTE | 2023-10-22 06:00 | DI.CT.S_ITS ---
PROCEDURE: CT CHEST ABD PEL W CON INDICATIONS: Rec pleural effusion, nausea/vomiting, GI edema vs ascites TECHNIQUE: After the administration of intravenous contrast, 5 mm thick sections acquired from the lung apices to the symphysis. 5 mm coronal and sagittal reformats were performed, with additional 7 mm MIP reformats through the lungs. For radiation dose reduction, the following was used: automated exposure control, adjustment of mA and/or kV according to patient size. COMPARISON: [facility], CT, ABDOMEN/PELVIS WITH CONTRAST, 06/20/2016, 14:47. [facility], CT, CT CHEST W CON, 09/02/2023, 10:24. [facility], CT, CT CHEST ABD PEL W CON, 10/03/2019, 12:30. FINDINGS: Image quality: Excellent. CHEST: Lower Neck: No enlarged lymph nodes. Thyroid: No thyroid nodules which require sonographic follow up, per consensus guidelines. Axillae: No enlarged lymph nodes. Chest Wall: Unremarkable. Lungs and Pleura: [id number] left effusion, increased compared to prior exam. Areas superimposed consolidation are present. Heart: Heart size is normal. No pericardial effusion. Thoracic Vessels: The aorta and pulmonary arteries demonstrate normal size. Mediastinum and Corin: No enlarged lymph nodes. Esophagus: No wall thickening. Mild hiatal hernia. ABDOMEN: Liver: No solid mass. Hepatic steatosis is present. Gallbladder: No radiopaque gallstones or wall thickening. Biliary ducts: No biliary dilation. Pancreas: No ductal dilation. Spleen: Size is within normal limits. Adrenal Glands: No adrenal nodules. Kidneys and Ureters: No hydronephrosis. No solid mass. No complex renal cystic lesion which requires follow up. Stomach and Bowel: Colonic diverticula are present. There is an overall appearance thickening within the colon predominantly the right and transverse, less so in the left colon. Peritoneum: No abnormal intraperitoneal fluid. No free air. Ventral Wall: No significant ventral hernia. Abdominal Nodes: No retroperitoneal or mesenteric adenopathy by size criteria. Vessels: Aorta and inferior vena cava are normal in size. PELVIS: Pelvic Organs: Unremarkable. Bladder: No bladder wall thickening, accounting for underdistention. Pelvic Nodes: No enlarged lymph nodes. Miscellaneous: No inguinal hernias are seen. Bones: No aggressive osseous abnormality. IMPRESSION: Thickened appearance of predominantly the right and transverse colon. While there is an element of incomplete distention, early colitis should be considered given appearance of overall wall thickening. This could be reflective of infection or inflammation. Diverticula are present although predominantly in the left colon. Mild moderate effusion with superimposed consolidation. Dictated by: Nancy Khan M.D. on 10/22/2023 at 8:19 Approved by: Nancy Khan M.D. on 10/22/2023 at 8:58
[2023-10-22 06:05] LABS: Lactate (Lactic Acid) 1.5 mmol/L (0.7-2.1)
[2023-10-22] MEDS: CEFEPIME 2 GM in SODIUM CHLORIDE 0.9% 100 ML IV (06:12)
[2023-10-22 06:25] LABS: NT-proBNP (BNP-Adult 18+) 1460 pg/mL (<125); Troponin I < 0.012 ng/mL (0.01-0.034)
[2023-10-22 07:59] LABS: Appearance Urine UA CLEAR; Bilirubin Urine UA NEGATIVE (NEGATIVE); Color Urine UA YELLOW; Glucose Urine UA NEGATIVE (Negative); Ketones Urine UA NEGATIVE (NEGATIVE); Leukocyte Esterase Urine UA NEGATIVE (NEGATIVE); Nitrite Urine UA NEGATIVE (Negative); Occult Blood Urine UA TRACE-INTACT (Negative); Protein Urine UA TRACE (Negative); Urobilinogen Urine UA 0.2 E.U./dL (0.2)
[2023-10-22 08:02] LABS: pH Urine UA 5.5 (4.5-8.0)
[2023-10-22 08:06] LABS: Bacteria Urine Occasional (0-1); Culture Indicated Urine Cult Not Indicated; RBC Urine 0-1/HPF (0-5/HPF); Squamous Epithelial Cell Urine 1-5 /HPF (0-5/HPF); Urine Volume 10mL (spun); WBC Urine 1-5/HPF (0-5/HPF)
[2023-10-22] MEDS: LORazepam 2 MG/ML INJ 0.5 MG IV (08:09)
[2023-10-22] MEDS: FUROSEMIDE 40 MG/4 ML VIAL IV (08:10)
[2023-10-22] MEDS: ONDANSETRON 4 MG/2 ML INJ IV ×2 (10:43→14:16)
--- NOTE | 2023-10-22 13:10 | PC.NURSE ---
patient in room with .
[2023-10-22] MEDS: METOPROLOL IR 25 MG TABLET PO (13:31)
== END 2023-10-22 14:20 | disposition short-term general hospital (02) ==
PROVIDERS: Emergency Medicine; Emergency Provider Emergency Medicine; PCP Family Medicine
DX: J90 Pleural effusion, not elsewhere classified (principal); K52.9 Noninfective gastroenteritis and colitis, unspecified; Z87.891 Personal history of nicotine dependence
CPT/HCPCS: 36415; 71046; 71260; 74177; 80053; 81001; 83605; 83690; 83735; 83880; 84484; 85025; 87040; 93005; 96365; 96375; 96376; 99284; 99291; J0692; J1170; J1940; J2060; J2405; J2765; Q9967

== ENCOUNTER → 2023-11-03 16:49 | Outpatient (CLI) | payer SELFPAY ==
[2023-09-17 22:15] VITALS: BMI 44.9
[2023-11-03 18:09] LABS: BUN Creatinine Ratio 13.3 (6-22); Blood Urea Nitrogen 11 mg/dL (7-17); Calcium 9.3 mg/dL (8.4-10.2); Carbon Dioxide 39 mmol/L (22-32); Chloride 99 mmol/L (98-107); Estimated Glomerular Filt Rate > 60 mL/min (>60); Glucose 86 mg/dL (70-100); HEMOLYSIS < 15 (0-50); Potassium 3.9 mmol/L (3.4-5.1); Sodium 139 mmol/L (137-145)
== END ==
PROVIDERS: PCP Family Medicine; Referring Provider Internal Medicine; Visit Provider Internal Medicine
DX: J90 Pleural effusion, not elsewhere classified (principal); I50.30 Unspecified diastolic (congestive) heart failure
CPT/HCPCS: 36415; 80048

== ENCOUNTER → 2023-11-14 09:09 | Outpatient (CLI) | payer OTHER, MEDICAID, SELFPAY ==
[2023-09-17 22:15] VITALS: BMI 44.9
--- NOTE | 2023-11-14 | DI.US.S_ITS ---
PROCEDURE: US CHEST COMPARISON: [facility], CT, CT CHEST ABD PEL W CON, 10/22/2023, 6:44. INDICATIONS: eval for effusion FINDINGS: Limited evaluation of left chest shows small to moderate left pleural effusion significantly decreased compared to 10/22/2023 study. IMPRESSION: Interval significant decrease in amount of left-sided pleural effusion with small to moderate residual left pleural effusion. Patient elected not to have thoracentesis done at this time. Dictated by: Patrick Leroy M.D. on 11/14/2023 at 12:34 Approved by: Patrick Leroy M.D. on 11/14/2023 at 12:36
== END ==
LOC: US 09:10
PROVIDERS: PCP Family Medicine; Referring Provider Internal Medicine; Visit Provider Internal Medicine
DX: I50.30 Unspecified diastolic (congestive) heart failure (principal); J90 Pleural effusion, not elsewhere classified
CPT/HCPCS: 76604

== ENCOUNTER → 2023-12-08 15:24 | Outpatient (CLI) | payer OTHER, MEDICAID, SELFPAY ==
[2023-11-19 08:28] VITALS: BMI 44.9
[2023-12-08 18:05] LABS: BUN Creatinine Ratio 15.2 (6-22); Blood Urea Nitrogen 14 mg/dL (7-17); Calcium 9.4 mg/dL (8.4-10.2); Carbon Dioxide 31 mmol/L (22-32); Chloride 103 mmol/L (98-107); Estimated Glomerular Filt Rate > 60 mL/min (>60); Glucose 77 mg/dL (70-100); HEMOLYSIS < 15 (0-50); Potassium 4.1 mmol/L (3.4-5.1); Sodium 139 mmol/L (137-145)
[2023-12-08 18:14] LABS: NT-proBNP (BNP-Adult 18+) 110 pg/mL (<125)
[2023-12-08 21:42] LABS: Hemoglobin A1C% w Est Avg Glu 5.3 % (4.0-6.0)
== END ==
PROVIDERS: PCP Family Medicine; Referring Provider Internal Medicine; Visit Provider Internal Medicine
DX: I50.30 Unspecified diastolic (congestive) heart failure (principal); R06.00 Dyspnea, unspecified; J90 Pleural effusion, not elsewhere classified; R73.01 Impaired fasting glucose; Z86.32 Personal history of gestational diabetes; R63.5 Abnormal weight gain; Z68.42 Body mass index [BMI] 45.0-49.9, adult
CPT/HCPCS: 36415; 80048; 83036; 83880

== ENCOUNTER → 2023-12-11 15:19 | Outpatient (CLI) | payer OTHER, MEDICAID, SELFPAY ==
[2023-11-19 08:28] VITALS: BMI 44.9
--- NOTE | 2023-12-11 | DI.US.S_ITS ---
PROCEDURE: US CHEST COMPARISON: [facility], , US CHEST, 11/14/2023, 10:14. INDICATIONS: recurring effusion FINDINGS: Sonographic examination of the lower chest shows small pleural effusion on the left. It would appear doubtful to obtain a significant improvement with thoracentesis at this time. IMPRESSION: Small pleural effusion left lung. Comment: Thoracentesis was not attempted at this time because of the small amount of fluid that is present. I spoke with the patient and explained the potential gain did not appear to be worth the risk of thoracentesis. She understands and is a grade 1 problems develop she would seek assistance that time period Dictated by: Darvin Rajan M.D. on 12/11/2023 at 16:51 Approved by: Darvin Rajan M.D. on 12/11/2023 at 16:55
== END ==
PROVIDERS: PCP Family Medicine; Referring Provider Internal Medicine; Visit Provider Internal Medicine
DX: I50.33 Acute on chronic diastolic (congestive) heart failure (principal); J90 Pleural effusion, not elsewhere classified
CPT/HCPCS: 76604

== ENCOUNTER → 2023-12-16 16:30 | Outpatient (CLI) | payer OTHER, MEDICAID, SELFPAY ==
[2023-11-19 08:28] VITALS: BMI 44.9
[2023-12-16 17:10] LABS: Hematocrit 43.3 % (36-46); Hemoglobin 14.3 g/dL (12.0-16.0); Mean Corpuscular HGB Conc 33.1 % (30-36); Mean Corpuscular Hemoglobin 28.1 PG (26-34); Mean Corpuscular Volume 84.7 fL (80-100); Platelet Count 360 X10^3/uL (150-400); Red Blood Cell Count 5.11 X10^6/uL (4.0-5.2); Red Cell Distribution Width 16.7 % (11.6-14.8)
[2023-12-16 17:35] LABS: BUN Creatinine Ratio 20.7 (6-22); Blood Urea Nitrogen 18 mg/dL (7-17); Calcium 9.5 mg/dL (8.4-10.2); Carbon Dioxide 32 mmol/L (22-32); Chloride 100 mmol/L (98-107); Estimated Glomerular Filt Rate > 60 mL/min (>60); Glucose 84 mg/dL (70-100); HEMOLYSIS < 15 (0-50); Potassium 4.3 mmol/L (3.4-5.1); Sodium 138 mmol/L (137-145)
[2023-12-16 17:43] LABS: NT-proBNP (BNP-Adult 18+) < 20 pg/mL (<125)
== END ==
PROVIDERS: PCP Family Medicine; Referring Provider Internal Medicine Cardiovascular Disease; Visit Provider Internal Medicine Cardiovascular Disease
DX: R06.09 Other forms of dyspnea (principal); I50.32 Chronic diastolic (congestive) heart failure
CPT/HCPCS: 36415; 80048; 83880; 85027

== ENCOUNTER 2024-01-01 21:49 | Inpatient (IN) | payer OTHER, MEDICAID, SELFPAY ==
[2023-11-19 08:28] VITALS: BMI 44.9
[2024-01-01] VITALS (11 sets, daily range): BP systolic 124–186; BP diastolic 58–90; PULSE 92–115; RESP 12–25; TEMP 36.7; O2SAT 88–94; BMI 43.9
--- NOTE | 2024-01-01 22:09 | DI.RAD.S_ITS ---
PROCEDURE: XR CHEST 1V INDICATIONS: chest pain TECHNIQUE: One view of the chest was acquired. COMPARISON: [facility], CR, XR CHEST 2V, 10/22/2023, 5:16. [facility], CR, XR CHEST 1V, 09/17/2023, 16:51. FINDINGS: Surgical changes and devices: None. Lungs and pleura: Moderate, loculated left-sided pleural effusion with left basilar atelectasis. Mediastinum: Mediastinal contours appear normal. Heart size is enlarged. Bones and chest wall: No suspicious bony lesions. Overlying soft tissues appear unremarkable. IMPRESSION: Moderate, loculated left-sided pleural effusion with left basilar atelectasis. This is decreased compared with prior. Dictated by: Fady Pereira M.D. on 01/01/2024 at 22:23 Approved by: Fady Pereira M.D. on 01/01/2024 at 22:24
--- NOTE | 2024-01-01 22:12 | EKG_ITS ---
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
[2024-01-01] MEDS: ALBUTEROL 2.5 MG/3 ML NEB (ADULT) INH (22:21)
[2024-01-01 22:22] LABS: Add Manual Diff / Slide Review NO; Basophils Absolute Auto 100 /uL (0-100); Basophils Percent Auto 0.7 % (0-2); Eosinophils Absolute Auto 400 /uL (0-450); Eosinophils Percent Auto 3.7 % (2-4); Hematocrit 37.6 % (36-46); Hemoglobin 12.2 g/dL (12.0-16.0); Lymphocytes Absolute Auto 2000 /uL (1100-4500); Lymphocytes Percent Auto 17.1 % (25-40); Mean Corpuscular HGB Conc 32.6 % (30-36); Mean Corpuscular Hemoglobin 28.2 PG (26-34); Mean Corpuscular Volume 86.7 fL (80-100); Monocytes Absolute Auto 800 /uL (0-900); Monocytes Percent Auto 7.3 % (3-14); Neutrophils Absolute Auto 8100 /uL (1500-7000); Neutrophils Percent Auto 71.2 % (50-75); Platelet Count 277 X10^3/uL (150-400); Red Blood Cell Count 4.33 X10^6/uL (4.0-5.2); Red Cell Distribution Width 18.3 % (11.6-14.8); White Blood Cell Count 11.4 X10^3/uL (4.5-11.0)
[2024-01-01 22:30] LABS: Prothrombin Time 11.7 SECONDS (9.4-12.5)
[2024-01-01 22:32] LABS: PTT Partial Thromboplastin Tim 35 SECONDS (25.1-36.5)
[2024-01-01 22:33] LABS: Alanine Aminotransferase 24 IU/L (<35); Albumin 4.2 g/dL (3.5-5.0); Albumin Globulin Ratio 1.3 (1.0-2.8); Alkaline Phosphatase 93 U/L (38-126); Aspartate Aminotransferase 35 IU/L (14-36); BUN Creatinine Ratio 13.1 (6-22); Bilirubin Total 0.5 mg/dL (0.2-1.3); Blood Urea Nitrogen 13 mg/dL (7-17); Calcium 9.9 mg/dL (8.4-10.2); Carbon Dioxide 30 mmol/L (22-32); Chloride 101 mmol/L (98-107); Creatine Kinase 360 U/L (30-135); Estimated Glomerular Filt Rate > 60 mL/min (>60); Globulin 3.3 g/dL (1.7-4.1); Glucose 94 mg/dL (70-100); HEMOLYSIS < 15 (0-50); Lipase 35 U/L (23-300); Magnesium 2.1 mg/dL (1.6-2.3); Sodium 136 mmol/L (137-145); Total Protein 7.5 g/dL (6.3-8.2)
--- NOTE | 2024-01-01 22:33 | ED_ITS ---
HPI - General Adult General Chief complaint: Shortness of Breath/Dyspnea Stated complaint: kidneys not functioning well, short of breath Time Seen by Provider: 01/01/24 22:12 Source: patient Mode of arrival: Ambulatory History of Present Illness HPI narrative: 43-year-old female. Has a history of recurrent left-sided pleural effusions requiring thoracentesis that in the past have been transudative. Unknown cause. Is currently under the workup by pulmonology. She also has a history of preserved ejection fraction heart failure of unknown etiology. She was under the care of cardiology. She states that for a period of time she has been on multiple different diuretics. Her last thoracentesis was several weeks ago. She was here for evaluation of lower extremity swelling and shortness of breath. She states that within the past week she was in [facility]. States she had episodes where she was passing out. She went to a local hospital. Was found to have acute kidney injury with a creatinine of 3 and hypotensive. The concern was that she was on too many diuretics and became dehydrated. She was stomped on all of the diuretics. Since that time she was had increasing swelling in her lower extremities that is up into her lower abdomen. She denies chest pain. Does have a cough. Shortness of breath with lying and specifically on exertion. She contacted her customer service clerk's office and was instructed to come to the emergency department for further evaluation. Related Data Home Medications Medication Instructions Recorded Confirmed levothyroxine 150 mcg tablet 150 mcg PO QAM 09/01/23 01/02/24 Previous Rx's Medication Instructions Recorded albuterol sulfate 2.5 mg/3 mL 2.5 mg (3 mL) inhalation Q4-6H PRN 11/01/20 (0.083 %) solution for nebulization bronchospasm #90 mL tizanidine 4 mg tablet 1 mg (1/4 x 4 mg) PO 3XD PRN for 07/29/23 muscle spasm #270 tabs albuterol sulfate 90 mcg/actuation 2 puff inhalation Q4HP PRN 08/01/23 aerosol inhaler (Ventolin HFA) shortness of breath or wheezing #1 ea metoprolol tartrate 25 mg tablet 25 mg PO BID #180 tabs 09/10/23 ibuprofen 200 mg tablet (Motrin IB) 400 mg (2 x 200 mg) PO Q8H PRN 09/18/23 pain (scale score 4-6) #30 tabs bupropion HCl 150 mg 24 hr tablet, 150 mg PO DAILY #90 tabs 10/14/23 extended release duloxetine 60 mg capsule,delayed 60 mg PO DAILY #90 caps 10/21/23 release quetiapine 25 mg tablet 75 mg (3 x 25 mg) PO BEDTIME #90 11/07/23 tabs furosemide 40 mg tablet See Rx Instructions PO DAILY #180 11/24/23 tabs spironolactone 25 mg tablet 25 mg PO DAILY #90 tabs 11/24/23 pregabalin 200 mg capsule See Rx Instructions .Route 12/11/23 .COMPLEX fibromyalgia M79.7 #270 caps oxycodone 5 mg tablet 10 mg (2 x 5 mg) PO Q4H PRN pain 12/24/23 #213 tabs amitriptyline 150 mg tablet 150 mg PO ONCE PM #90 tabs 12/30/23 Allergies Allergy/AdvReac Type Severity Reaction Status Date / Time Penicillins [PENICILLINS] Allergy Mild Rash Verified 01/01/24 22:09 fluconazole [From DIFLUCAN] AdvReac Intermediate vomiting Verified 01/01/24 22:09 and abd pain codeine [CODEINE] AdvReac Mild NAUSEA Verified 01/01/24 22:09 Review of Systems Review of Systems ROS Unobtainable: All systems reviewed & are unremarkable except as noted in HPI and below Patient History Medical History Hot flashes due to menopause Onychomycosis Chronic pain due to neoplasm Functional memory problem BMI 45.0-49.9, adult History of colon polyps Insomnia disorder, with non-sleep disorder mental comorbidity Bilateral chronic knee pain Acute pain of right knee UTI (urinary tract infection) Paget's disease of bone Obstructive sleep apnea on CPAP Lymphedema of arm Essential hypertension Major depressive disorder Abrasion, corneal Migraines Fibromyalgia (~05/2017) History of PCR DNA positive for HSV1 (~2014) Hypothyroidism (~2008) Rheumatoid arthritis Asthma Depression Irritable bowel syndrome Diverticular disease (~2015) Gestational diabetes mellitus (GDM) (10/27/14) Morbid obesity with body mass index (BMI) of 40.0 to 44.9 in adult (11/08/10) Surgical History Status post laparoscopy (01/19/16) Status post laparoscopic supracervical hysterectomy (10/23/15) Status post delivery (12/30/14) Status post tubal ligation (12/30/14) Status post surgery (07/07/12) Family History Grandmother Stroke Grandfather Heart disease Cancer Father Hypertension Mother Hypothyroidism (acquired) Social History marital status: household members: spouse and children lives independently: Yes Smoking Status: Former smoker alcohol intake: current substance use type: does not use Smoking Status: Former smoker tobacco type: cigarettes and vaping alcohol intake frequency: holidays/special occasions only Substance Use Type: marijuana Exam Initial Vital Signs Initial Vital Signs: Vital Signs Pulse Rate 109 H 01/01/24 22:03 Blood Pressure 186/90 H 01/01/24 22:03 Pulse Oximetry 94 01/01/24 22:03 Const General: cooperative, comfortable and No ill appearing HENMT Head: normal to inspection and normocephalic Resp Effort & Inspection: cough, not labored and not tachypneic Auscultation: crackles and wheezes Cardio Rate: regular rate Rhythm: regular rhythm GI Inspection: normal to inspection and non-distended Skin General: no rashes or lesions noted Neuro General: patient alert, patient awake, patient oriented x3 and moves all extremities Extrem General: capillary refill normal and edema Scores GCS [place] coma scale eye opening: Spontaneous [place] coma scale verbal response: Orientated [place] coma scale motor response: Obey commands [place] coma scale total score: 15 Course Orders Ordered: ED Orders 01/01/24 22:09 XR chest 1V Stat EKG-12 Lead Stat 01/01/24 22:11 Complete Blood Count AUTO DIFF Stat Comprehensive Metabolic Panel Stat Lipase Stat Magnesium Stat NT-proBNP (BNP-Adult 18+) Stat PTT Partial Thromboplastin [place] Stat Prothrombin Time INR Stat Troponin & CK Cardiac Panel Stat 01/01/24 22:15 Respiratory Panel (Film Array) Stat 01/02/24 00:52 Education, smoking cessation ONGOING Acetaminophen (Acetaminophen 325 Mg Tablet) 650 mg PO Q6H PRN PRN Reason: Fever/Mild Pain (1-3) Albuterol (Albuterol 2.5 Mg/3 Ml Neb (Adult)) 2.5 mg INH Q4H PRN PRN Reason: bronchospasm Albuterol (Albuterol Hfa Mdi 60 Puff/8 Gm Inhaler) 2 puff INH Q4H PRN PRN Reason: shortness of breath or wheezing Amitriptyline HCl (Amitriptyline 25 Mg Tablet) 150 mg PO BEDTIME [facility] Last Admin: 01/02/24 02:49 Dose: 150 mg Documented By: SR Aspirin (Aspirin Ec 81 Mg Tablet) 81 mg PO DAILY [facility] Bisacodyl (Bisacodyl 10 Mg Supp) 10 mg NM DAILY PRN PRN Reason: Constipation Bupropion HCl (Bupropion Xl 150 Mg Tab) 150 mg PO DAILY [facility] Calcium Carbonate (Calcium Carbonate 500 Mg Tab) 1,000 mg PO Q4HR PRN PRN Reason: Dyspepsia Docusate Sodium (Docusate 100 Mg Capsule) 100 mg PO BID [facility] Duloxetine HCl (Duloxetine 30 Mg Capsule) 60 mg PO DAILY [facility] Furosemide (Furosemide 20 Mg/2 Ml Vial) 40 mg IV BID [facility] Hydralazine HCl (Hydralazine 20 Mg/Ml Vial) 10 mg IV Q6HR PRN PRN Reason: SBP>= 160 or DBP >=110 Levothyroxine Sodium (Levothyroxine 75 Mcg Tablet) 150 mcg PO 0600 [facility] Metoprolol Tartrate (Metoprolol Ir 25 Mg Tablet) 25 mg PO BID [facility] Naloxone HCl (Naloxone 0.4 Mg/Ml Vial) 0.2 mg IV Q2MIN PRN PRN Reason: Opiate Reversal Ondansetron HCl (Ondansetron 4 Mg/2 Ml Inj) 4 mg IV Q8HR PRN PRN Reason: Nausea And Vomiting Oxycodone HCl (Oxycodone Ir 5 Mg Tablet) 10 mg PO Q4H PRN PRN Reason: pain Last Admin: 01/02/24 02:48 Dose: 10 mg Documented By: SR Pregabalin (Pregabalin 75 Mg Capsule) 150 mg PO TID [facility] Last Admin: 01/02/24 02:50 Dose: 150 mg Documented By: SR Pregabalin (Pregabalin 25 Mg Capsule) 50 mg PO TID [facility] Last Admin: 01/02/24 02:49 Dose: 50 mg Documented By: SR Quetiapine Fumarate (Quetiapine 25 Mg Tablet) 75 mg PO BEDTIME [place] Spironolactone (Spironolactone 25 Mg Tablet) 25 mg PO DAILY [place] Tizanidine HCl (Tizanidine 4 Mg Tablet) 1 mg PO TID PRN PRN Reason: muscle spasms Trazodone HCl (Trazodone 50 Mg Tablet) 50 mg PO BEDTIME PRN PRN Reason: sleep Discontinued Medications Albuterol (Albuterol 2.5 Mg/3 Ml Neb (Adult)) 2.5 mg INH NOW ONE Stop: 01/01/24 22:16 Last Admin: 01/01/24 22:21 Dose: 2.5 mg Documented By: DANIELLE Aspirin (Aspirin 81 Mg Chew Tab) 324 mg PO NOW ONE Stop: 01/01/24 22:10 Last Admin: 01/01/24 22:23 Dose: Not Given Documented By: MONICA Furosemide 80 mg/ Sodium (Chloride) 58 mls @ 116 mls/hr IV NOW ONE Stop: 01/01/24 22:53 Last Infusion: 01/01/24 23:33 Dose: Infused Documented By: Admin: 01/01/24 23:03 Dose: 116 mls/hr Documented By: MONICA Vital Signs Vital signs: Vital Signs - 8 hr 01/01/24 22:03 01/01/24 22:03 01/01/24 22:05 Temperature 98.1 F Pulse Rate 109 H 115 H Respiratory Rate 24 Blood Pressure 186/90 H 186/90 H Pulse Oximetry 94 89 L Oxygen Delivery Method Room Air Oxygen Flow Rate Fraction of Inspired Oxygen 01/01/24 22:21 01/01/24 22:30 01/01/24 22:31 Temperature Pulse Rate 96 H 96 H 94 H Respiratory Rate 20 25 H 18 Blood Pressure Pulse Oximetry 91 94 93 Oxygen Delivery Method Room Air Oxygen Flow Rate 0 Fraction of Inspired Oxygen 21 01/01/24 22:31 01/01/24 22:40 01/01/24 22:42 Temperature Pulse Rate Respiratory Rate Blood Pressure 134/62 Pulse Oximetry 88 L 94 Oxygen Delivery Method Room Air Nasal Cannula Oxygen Flow Rate 2 Fraction of Inspired Oxygen 01/01/24 23:00 01/01/24 23:01 01/01/24 23:01 Temperature Pulse Rate 93 H 94 H Respiratory Rate 14 15 Blood Pressure 124/58 L Pulse Oximetry 92 92 Oxygen Delivery Method Oxygen Flow Rate Fraction of Inspired Oxygen 08/29/24 23:30 01/01/24 23:30 01/01/24 23:50 Temperature Pulse Rate 93 H 92 H Respiratory Rate 12 17 Blood Pressure 138/72 Pulse Oximetry 91 94 Oxygen Delivery Method Room Air Oxygen Flow Rate Fraction of Inspired Oxygen 01/01/24 23:50 01/02/24 00:00 01/02/24 00:00 Temperature Pulse Rate 92 H Respiratory Rate 14 Blood Pressure 125/67 133/67 Pulse Oximetry 93 Oxygen Delivery Method Oxygen Flow Rate Fraction of Inspired Oxygen 01/02/24 00:18 01/02/24 00:18 01/02/24 00:30 Temperature Pulse Rate 88 88 Respiratory Rate 14 12 Blood Pressure 124/63 Pulse Oximetry 95 95 Oxygen Delivery Method Nasal Cannula Nasal Cannula Oxygen Flow Rate 2 2 Fraction of Inspired Oxygen 01/02/24 00:30 Temperature Pulse Rate Respiratory Rate Blood Pressure 127/60 Pulse Oximetry Oxygen Delivery Method Oxygen Flow Rate Fraction of Inspired Oxygen Medical Decision Making Medical Records Medical records reviewed: Yes I reviewed the patient's medical records. Lab Data Lab results reviewed: Yes I reviewed the patient's lab results. 01/01/24 22:11 01/01/24 22:11 Labs: Lab Results 01/01/24 01/01/24 Range/Units 22:11 22:15 WBC 11.4 H (4.5-11.0) X10^3/uL RBC 4.33 (4.0-5.2) X10^6/uL Hgb 12.2 (12.0-16.0) g/dL Hct 37.6 (36-46) % MCV 86.7 (80-100) fL MCH 28.2 (26-34) PG MCHC 32.6 (30-36) % RDW 18.3 H (11.6-14.8) % Plt Count 277 (150-400) X10^3/uL Neut % (Auto) 71.2 (50-75) % Lymph % (Auto) 17.1 L (25-40) % [place] % (Auto) 7.3 (3-14) % Eos % (Auto) 3.7 (2-4) % Baso % (Auto) 0.7 (0-2) % Neut # (Auto) 8100 H (3059-9502) /uL Lymph # (Auto) 2000 (4725-5728) /uL [place] # (Auto) 800 (0-900) /uL Eos # (Auto) 400 (0-450) /uL Baso # (Auto) 100 (0-100) /uL PT 11.7 (9.4-12.5) SECONDS INR 1.0 (0.9-1.3) APTT 35 (25.1-36.5) SECONDS Sodium 136 L (137-145) mmol/L Potassium 4.0 (3.4-5.1) mmol/L Chloride 101 (98-107) mmol/L Carbon Dioxide 30 (22-32) mmol/L BUN 13 (7-17) mg/dL Creatinine 0.99 (0.52-1.04) mg/dL Estimated GFR > 60 (>60) mL/min BUN/Creatinine Ratio 13.1 (6-22) Glucose 94 (70-100) mg/dL Calcium 9.9 (8.4-10.2) mg/dL Magnesium 2.1 (1.6-2.3) mg/dL Total Bilirubin 0.5 (0.2-1.3) mg/dL AST 35 (14-36) IU/L ALT 24 (<35) IU/L Alkaline Phosphatase 93 (38-126) U/L Total Creatine Kinase 360 H (30-135) U/L Troponin I < 0.012 (0.01-0.034) ng/mL NT-Pro-B Natriuret Pep 559 H (<125) pg/mL Total Protein 7.5 (6.3-8.2) g/dL Albumin 4.2 (3.5-5.0) g/dL Globulin 3.3 (1.7-4.1) g/dL Albumin/Globulin Ratio 1.3 (1.0-2.8) Lipase 35 (23-300) U/L Chlamy pneumoniae PCR Not detected (Not Detect) Adenovirus (PCR) Not detected (Not Detect) B.parapertussis DNA PCR Not detected (Not Detecte) Coronavirus OC43 (PCR) Not detected (Not Detect) Coronavirus HKU1 (PCR) Not detected (Not Detect) Coronavirus 229E (PCR) Not detected (Not Detect) SARS-CoV-2 (PCR) Not detected (Not Detecte) Coronavirus NL63 (PCR) Not detected (Not Detect) Human Metapneumovir PCR Not detected (Not Detect) Influenza Type A (PCR) Not detected (Not Detect) Influenza Type B (PCR) Not detected (Not Detect) M. pneumoniae (PCR) Not detected (Not Detect) Parainfluenza 1 (PCR) Not detected (Not Detect) Parainfluenza 2 (PCR) Not detected (Not Detect) Parainfluenza 3 (PCR) Not detected (Not Detect) Parainfluenza 4 (PCR) Not detected (Not Detect) RSV (PCR) Not detected (Not Detect) Entero/Rhino (PCR) Not detected (Not Detect) Urine Dip Bedside Urine Glucose 250 mg/dl Bedside Urine Bilirubin + 1 Bedside Urine Ketone - Negative Urine Specific [place] 1.025 Bedside Urine Occult Blood - Negative Bedside Urine pH 5.5 Bedside Urine Protein + 30 Bedside Urine Urobilinogen - Negative Bedside Urine Nitrite - Negative Bedside Urine Leukocytes +/- 15 Esterase Point of care testing: Urine Dip Bedside Urine Glucose 250 mg/dl Bedside Urine Bilirubin + 1 Bedside Urine Ketone - Negative Urine Specific [place] 1.025 Bedside Urine Occult Blood - Negative Bedside Urine pH 5.5 Bedside Urine Protein + 30 Bedside Urine Urobilinogen - Negative Bedside Urine Nitrite - Negative Bedside Urine Leukocytes +/- 15 Esterase Imaging Data Chest x-ray: Radiologist's Impression: PROCEDURE: XR CHEST 1V INDICATIONS: chest pain TECHNIQUE: One view of the chest was acquired. COMPARISON: [facility], , XR CHEST 2V, 10/22/2023, 5:16. [facility], , XR CHEST 1V, 09/17/2023, 16:51. FINDINGS: Surgical changes and devices: None. Lungs and pleura: Moderate, loculated left-sided pleural effusion with left basilar atelectasis. Mediastinum: Mediastinal contours appear normal. Heart size is enlarged. Bones and chest wall: No suspicious bony lesions. Overlying soft tissues appear unremarkable. IMPRESSION: Moderate, loculated left-sided pleural effusion with left basilar atelectasis. This is decreased compared with prior. ECG Data Attestation: I personally reviewed and interpreted this ECG as follows: Interpretation: Sinus rhythm Ventricular rate 97 Normal axis Normal QRS Normal QTC No ST T wave changes MDM Narrative Medical decision making narrative: Patient does have history of asthma. She was given a nebulizer treatment when she states potentially helped her symptoms somewhat. She was a chest x-ray which does show a small left-sided pleural effusion however it is actually improved from prior x-rays. Respiratory panel was negative. She has lower extremity edema. She has been off of her diuretics for at least the past several days. Her creatinine today is normal. She was given Lasix here in the ER. She did diurese. She thinks that maybe it has helped her symptoms somewhat but when she ambulated around the emergency department she became tachypneic and dyspneic and hypoxic to the mid upper 80s. This improved with resting in bed. Do not feel that the patient needs an emergent thoracentesis. No chest pain. Low suspicion for ACS. Discussed the case with Dr. lacy hospitalist on- call who will admit for diuresis. Discussed admission for diuresis with the patient. She expressed understanding and agreement with plan. Discharge Plan Departure Patient Disposition: Admitted as Observation Clinical Impression: Pulmonary edema, Heart failure, Hypoxia Admit Date/Time: 01/02/24 00:52 Admit Provider: Lester Lacy
[2024-01-01 22:44] LABS: NT-proBNP (BNP-Adult 18+) 559 pg/mL (<125); Troponin I < 0.012 ng/mL (0.01-0.034)
[2024-01-01] MEDS: FUROSEMIDE 80 MG in SODIUM CHLORIDE 0.9% 50 ML 116 MG IV (23:03)
[2024-01-01 23:17] LABS: Adenovirus Not Detected (Not Detect); B. parapertussis Not Detected (Not Detecte); Bordetella pertussis Not Detected (Not Detect); Chlamydophila pneumoniae Not Detected (Not Detect); Coronavirus 229E Not Detected (Not Detect); Coronavirus HKU1 Not Detected (Not Detect); Coronavirus NL 63 Not Detected (Not Detect); Coronavirus OC43 Not Detected (Not Detect); Human Metapneumovirus Not Detected (Not Detect); Human Rhinovirus/Enterovirus Not Detected (Not Detect); Influenza A Not Detected (Not Detect); Influenza B Not Detected (Not Detect); Mycoplasma pneumoniae Not Detected (Not Detect); Parainfluenza Virus 1 Not Detected (Not Detect); Parainfluenza Virus 2 Not Detected (Not Detect); Parainfluenza Virus 3 Not Detected (Not Detect); Parainfluenza Virus 4 Not Detected (Not Detect); Respiratory Syncytial Virus Not Detected (Not Detect); SARS- CoV-2 Not Detected (Not Detecte)
[2024-01-02] VITALS (11 sets, daily range): BP systolic 114–145; BP diastolic 60–82; PULSE 72–92; RESP 12–20; TEMP 35.8–36.6; O2SAT 93–97; BMI 43.9
--- NOTE | 2024-01-02 00:09 | PC.NURSE ---
Addendum entered by Melissa Dillon R.N. 01/02/24 00:10: Patient was on room air while ambulating. Original Note: This nurse ambulated with patient and monitored patient's oxygen while pat ambulated. Pt O2 dropped to 87%. Dr. Coy aware. No new orders.
[2024-01-02] MEDS: OXYCODONE IR 5 MG TABLET 10 MG PO (02:48)
[2024-01-02] MEDS: PREGABALIN 25 MG CAPSULE 50 MG PO ×2 (02:49→09:37)
[2024-01-02] MEDS: AMITRIPTYLINE 25 MG TABLET 150 MG PO ×2 (02:49→21:05)
[2024-01-02] MEDS: PREGABALIN 75 MG CAPSULE 150 MG PO ×2 (02:50→09:36)
--- NOTE | 2024-01-02 05:01 | PM.HP.1 ---
History of Present Illness History of Present Illness Chief complaint: kidneys not functioning well, short of breath Narrative: 43 years old female with history of recurrent left-sided pleural effusion requiring thoracentesis from uncertain etiology, CHF with preserved ejection fraction presented to the ER with increased shortness of breath and swelling of lower extremities in the last couple of days. The patient was seen by cardiology and was put on multiple cardiac medications including diuretics in the last 6 months. Last week when she was in [facility] she had near syncopal episodes and went to the local hospital. She was found to have acute kidney injury with creatinine around 3 and hypotension. Her diuretics were stopped and has not been resumed in the last several days. Since then the patient started experience increased shortness of breath, weight gain and swelling of her legs. Denies any chest pain, cough, fever, palpitations, nausea, vomiting, abdominal pain, diarrhea or dysuria. Follow-up with pulmonary for her recurrent left pleural effusion. She has multiple thoracentesis in the past 4 days. Laboratory shows WBC 11.4, sodium 136, potassium 4, creatinine 0.99, blood sugar 94, LFT normal, troponin 0.0 12, BNP 559, lipase 35, respiratory viral panel negative, UA negative. Chest x-ray shows moderate loculated left-sided pleural effusion with left basilar atelectasis decreased compared to prior. EKG sinus rhythm without any changes. In the ER she was found to be hypoxic in mid 80s, improved with bedrest. She was given albuterol nebulizer, aspirin 324, Lasix 80 mg IV and was decided to be admitted for further management. FOR[facility]LY [facility] Medical History Hot flashes due to menopause Onychomycosis Chronic pain due to neoplasm Functional memory problem BMI 45.0-49.9, adult History of colon polyps Insomnia disorder, with non-sleep disorder mental comorbidity Bilateral chronic knee pain Acute pain of right knee UTI (urinary tract infection) Paget's disease of bone Obstructive sleep apnea on CPAP Lymphedema of arm Essential hypertension Major depressive disorder Abrasion, corneal Migraines Fibromyalgia (~05/2017) History of PCR DNA positive for HSV1 (~2014) Hypothyroidism (~2008) Rheumatoid arthritis Asthma Depression Irritable bowel syndrome Diverticular disease (~2015) Gestational diabetes mellitus (GDM) (10/27/14) Morbid obesity with body mass index (BMI) of 40.0 to 44.9 in adult (11/08/10) Surgical History Status post laparoscopy (01/19/16) Status post laparoscopic supracervical hysterectomy (10/23/15) Status post delivery (12/30/14) Status post tubal ligation (12/30/14) Status post surgery (07/07/12) Family History Grandmother Stroke Grandfather Heart disease Cancer Father Hypertension Mother Hypothyroidism (acquired) Social History marital status: household members: spouse and children lives independently: Yes Smoking Status: Former smoker alcohol intake: current substance use type: does not use Meds Home Medications and Allergies Home Medications Medication Instructions Recorded Confirmed Type albuterol sulfate 2.5 mg/3 mL 2.5 mg (3 mL) inhalation Q4-6H PRN 11/01/20 01/02/24 Rx (0.083 %) solution for nebulization bronchospasm #90 mL tizanidine 4 mg tablet 1 mg (1/4 x 4 mg) PO 3XD PRN for 07/29/23 01/02/24 Rx muscle spasm #270 tabs albuterol sulfate 90 mcg/actuation 2 puff inhalation Q4HP PRN 08/01/23 01/02/24 Rx aerosol inhaler (Ventolin HFA) shortness of breath or wheezing #1 ea levothyroxine 150 mcg tablet 150 mcg PO QAM 09/01/23 01/02/24 History metoprolol tartrate 25 mg tablet 25 mg PO BID #180 tabs 09/10/23 01/02/24 Rx ibuprofen 200 mg tablet (Motrin IB) 400 mg (2 x 200 mg) PO Q8H PRN 09/18/23 01/02/24 Rx pain (scale score 4-6) #30 tabs bupropion HCl 150 mg 24 hr tablet, 150 mg PO DAILY #90 tabs 10/14/23 01/02/24 Rx extended release duloxetine 60 mg capsule,delayed 60 mg PO DAILY #90 caps 10/21/23 01/02/24 Rx release quetiapine 25 mg tablet 75 mg (3 x 25 mg) PO BEDTIME #90 11/07/23 01/02/24 Rx tabs furosemide 40 mg tablet See Rx Instructions PO DAILY #180 11/24/23 01/02/24 Rx tabs spironolactone 25 mg tablet 25 mg PO DAILY #90 tabs 11/24/23 01/02/24 Rx pregabalin 200 mg capsule See Rx Instructions .Route 12/11/23 01/02/24 Rx .COMPLEX fibromyalgia M79.7 #270 caps oxycodone 5 mg tablet 10 mg (2 x 5 mg) PO Q4H PRN pain 12/24/23 01/02/24 Rx #213 tabs amitriptyline 150 mg tablet 150 mg PO ONCE PM #90 tabs 12/30/23 01/02/24 Rx Allergies Allergy/AdvReac Type Severity Reaction Status Date / Time Penicillins [PENICILLINS] Allergy Mild Rash Verified 01/01/24 22:09 fluconazole [From DIFLUCAN] AdvReac Intermediate vomiting Verified 01/01/24 22:09 and abd pain codeine [CODEINE] AdvReac Mild NAUSEA Verified 01/01/24 22:09 Review of Systems Review of Systems ROS: Yes All systems reviewed with the patient and are negative except as otherwise documented Constitutional Constitutional: Reports as per HPI and Reports system reviewed and no additional complaints, except as documented Eyes Eyes: Reports as per HPI and Reports system reviewed and no additional complaints, except as documented ENT Ears, Nose, Mouth, and Throat: Yes as per HPI and Yes system reviewed and no additional complaints, except as documented Cardiovascular Cardiovascular: Reports system reviewed and no additional complaints, except as documented Respiratory Respiratory: Reports system reviewed and no additional complaints, except as documented Gastrointestinal Gastrointestinal: Reports system reviewed and no additional complaints, except as documented Genitourinary Genitourinary: Reports system reviewed and no additional complaints, except as documented Musculoskeletal Musculoskeletal: Reports system reviewed and no additional complaints, except as documented, Reports abnormal gait and Reports numbness Neurologic Neurologic: Reports system reviewed and no additional complaints, except as documented, Reports abnormal gait, Reports confusion and Reports numbness Psychiatric Psychiatric: Reports system reviewed and no additional complaints, except as documented and Reports confusion Exam Vital Signs (past 8 hours): - 01/01/24 22:03 01/01/24 22:03 01/01/24 22:05 Temperature 98.1 F Pulse Rate 109 H 115 H Respiratory Rate 24 Blood Pressure 186/90 H 186/90 H Pulse Oximetry 94 89 L Oxygen Delivery Method Room Air Oxygen Flow Rate Fraction of Inspired Oxygen 01/01/24 22:21 01/01/24 22:30 01/01/24 22:31 Temperature Pulse Rate 96 H 96 H 94 H Respiratory Rate 20 25 H 18 Blood Pressure Pulse Oximetry 91 94 93 Oxygen Delivery Method Room Air Oxygen Flow Rate 0 Fraction of Inspired Oxygen 21 01/01/24 22:31 01/01/24 22:40 01/01/24 22:42 Temperature Pulse Rate Respiratory Rate Blood Pressure 134/62 Pulse Oximetry 88 L 94 Oxygen Delivery Method Room Air Nasal Cannula Oxygen Flow Rate 2 Fraction of Inspired Oxygen 01/01/24 23:00 01/01/24 23:01 01/01/24 23:01 Temperature Pulse Rate 93 H 94 H Respiratory Rate 14 15 Blood Pressure 124/58 L Pulse Oximetry 92 92 Oxygen Delivery Method Oxygen Flow Rate Fraction of Inspired Oxygen 01/01/24 23:30 01/01/24 23:30 01/01/24 23:50 Temperature Pulse Rate 93 H 92 H Respiratory Rate 12 17 Blood Pressure 138/72 Pulse Oximetry 91 94 Oxygen Delivery Method Room Air Oxygen Flow Rate Fraction of Inspired Oxygen 01/01/24 23:50 01/02/24 00:00 01/02/24 00:00 Temperature Pulse Rate 92 H Respiratory Rate 14 Blood Pressure 125/67 133/67 Pulse Oximetry 93 Oxygen Delivery Method Oxygen Flow Rate Fraction of Inspired Oxygen 01/02/24 00:18 01/02/24 00:18 01/02/24 00:30 Temperature Pulse Rate 88 88 Respiratory Rate 14 12 Blood Pressure 124/63 Pulse Oximetry 95 95 Oxygen Delivery Method Nasal Cannula Nasal Cannula Oxygen Flow Rate 2 2 Fraction of Inspired Oxygen 01/02/24 00:30 01/02/24 00:55 01/02/24 01:00 Temperature 97.7 F Pulse Rate 89 87 Respiratory Rate 18 14 Blood Pressure 127/60 125/65 Pulse Oximetry 96 96 Oxygen Delivery Method Oxygen Flow Rate 2 Fraction of Inspired Oxygen 01/02/24 01:30 Temperature Pulse Rate 88 Respiratory Rate 12 Blood Pressure Pulse Oximetry 95 Oxygen Delivery Method Room Air Oxygen Flow Rate Fraction of Inspired Oxygen Fraction of Inspired Oxygen 21 SaO2/FiO2 Ratio 433 Oxygen Delivery Method Room Air Oxygen Flow Rate 2 Const General: cooperative, comfortable and well developed Orientation: alert and oriented x3 HENMS Head: normal to inspection, normocephalic and atraumatic Face and sinus: normal facial exam Mouth: oral mucosae normal and moist mucous membranes Throat: posterior oropharynx normal Eyes General: appearance normal, both eyes and all related structures Pupils: PERRL EOM: EOM intact bilaterally Neck Neck: normal visual inspection and full ROM Chest Chest: normal inspection of the chest Resp Effort & Inspection: normal respiratory effort and able to speak in complete sentences Auscultation: clear to auscultation bilaterally Cardio Palpation: normal PMI Rate: regular rate Rhythm: regular rhythm Heart Sounds: S1 normal and S2 normal GI Inspection: normal to inspection Palpation: soft and no hepatosplenomegaly Auscultation: normal bowel sounds Skin General: no rashes or lesions noted Lesions: no lesions Rashes: no rashes Trauma: no lacerations or abrasions Neuro General: patient alert, patient awake, patient oriented x3 and no focal motor deficits Cranial Nerves: CN's II-XI intact bilaterally Cognition: normal cognition Speech: speech normal Gait: normal gait Motor: muscle tone normal throughout Sensory Exam: no sensory deficits noted Extrem General: full ROM and no calf tenderness Psych Appearance: grossly normal Mental Status: mental status grossly normal Speech and Movement: speech and movement normal Objective Labs 01/01/24 22:11 01/01/24 22:11 Labs: Laboratory Results - last 24 hr 01/01/24 01/01/24 22:11 22:15 WBC 11.4 H RBC 4.33 Hgb 12.2 Hct 37.6 MCV 86.7 MCH 28.2 MCHC 32.6 RDW 18.3 H Plt Count 277 Neut % (Auto) 71.2 Lymph % (Auto) 17.1 L [place] % (Auto) 7.3 Eos % (Auto) 3.7 Baso % (Auto) 0.7 Neut # (Auto) 8100 H Lymph # (Auto) 2000 [place] # (Auto) 800 Eos # (Auto) 400 Baso # (Auto) 100 PT 11.7 INR 1.0 APTT 35 Sodium 136 L Potassium 4.0 Chloride 101 Carbon Dioxide 30 BUN 13 Creatinine 0.99 Estimated GFR > 60 BUN/Creatinine Ratio 13.1 Glucose 94 Calcium 9.9 Magnesium 2.1 Total Bilirubin 0.5 AST 35 ALT 24 Alkaline Phosphatase 93 Total Creatine Kinase 360 H Troponin I < 0.012 NT-Pro-B Natriuret Pep 559 H Total Protein 7.5 Albumin 4.2 Globulin 3.3 Albumin/Globulin Ratio 1.3 Lipase 35 Chlamy pneumoniae PCR Not detected Adenovirus (PCR) Not detected B.parapertussis DNA PCR Not detected Coronavirus OC43 (PCR) Not detected Coronavirus HKU1 (PCR) Not detected Coronavirus 229E (PCR) Not detected SARS-CoV-2 (PCR) Not detected Coronavirus NL63 (PCR) Not detected Human Metapneumovir PCR Not detected Influenza Type A (PCR) Not detected Influenza Type B (PCR) Not detected M. pneumoniae (PCR) Not detected Parainfluenza 1 (PCR) Not detected Parainfluenza 2 (PCR) Not detected Parainfluenza 3 (PCR) Not detected Parainfluenza 4 (PCR) Not detected RSV (PCR) Not detected Entero/Rhino (PCR) Not detected Assessment & Plan Assessment & Plan narrative: Acute on chronic diastolic heart failure: Echo done on 08/2023 shows mild concentric LVH with ejection fraction of 60-65%, left atrium mildly dilated, trace mitral regurgitation. -Monitor I and O; daily standing weight; -diuresis with Lasix as BP can tolerate. -check BNP and repeat in 48 hours; low sodium diet -Monitor effectiveness of diuresis. Monitor renal function. -keep potassium> 4 and magnesium> 2 -Telemetry monitoring -serial troponins, Echo -Resume BB/spironolactone when appropriate. -Resume albuterol -Supplemental O2 as needed, goal SpO2> 90% -ABG and BiPAP If significant hypoxia present -Follow-up with cardiology as outpatient Recurrent left-sided pleural effusion from unclear etiology with multiple thoracentesis in the past. Follow-up with pulmonary. Seems to be decreasing on x-ray. Will monitor for now. Hypothyroidism. Restart levothyroxine and check TSH. Depression. Restart amitriptyline and bupropion Rheumatoid arthritis and Paget's disease. Restart home medications. Hypertension. Restart metoprolol. Hydralazine as needed. Time-Based Coding :: [TOTAL MINUTES] spent with patient and on the chart (including review of chart, obtaining history, exam, reviewing outside data, placing orders, documenting exam and treatment plan, and counseling patient) on [DATE]. Quality VTE Deep Vein Thrombosis/Pulmonary Embolism Present on Admission: No MIPS - Admit I confirm the patient?s Advance Care Plan is present, Code status is documented, Surrogate decision maker is in patient?s record [If Yes, STOP here]: Yes MIPS - Meds 'Current medications' to include all prescriptions, [id number] products, herbals, cannabis/cannabidiol products, and vitamin/mineral/dietary (nutritional) supplements. I have utilized all available resources to obtain, update, or review the patient?s current medications. [If Yes, STOP here]: Yes
[2024-01-02] MEDS: LEVOTHYROXINE 75 MCG TABLET 150 MCG PO (06:07)
[2024-01-02 06:46] LABS: Cholesterol 167 mg/dL (140-199); HDL Cholesterol 41 mg/dL (40-60); LDL Cholesterol Calculated 108 mg/dL (<100); Triglycerides 88 mg/dL (35-150)
[2024-01-02] MEDS: DULOXETINE 30 MG CAPSULE 60 MG PO (09:36)
[2024-01-02] MEDS: METOPROLOL IR 25 MG TABLET PO ×2 (09:37→21:04)
[2024-01-02] MEDS: SPIRONOLACTONE 25 MG TABLET PO (09:37)
[2024-01-02] MEDS: DOCUSATE 100 MG CAPSULE PO (09:37)
[2024-01-02] MEDS: ASPIRIN EC 81 MG TABLET PO (09:37)
[2024-01-02] MEDS: FUROSEMIDE 20 MG/2 ML VIAL 40 MG IV (09:37)
[2024-01-02] MEDS: buPROPion XL 150 MG TAB PO (09:37)
--- NOTE | 2024-01-02 11:44 | PC.NURSE ---
Addendum entered by Hannah Abbasi R.N. 01/02/24 18:42: Just checked on patient and she is still groggy and sleepy. is aware that she is and that she is waking up for her meals. No new orders at this time. Addendum entered by Hannah Abbasi R.N. 01/02/24 15:48: Patient asked for some pain medication around 1430 but this rn told patient that she did not feel comfortable doing this as she has been sleeping all day, turns out that patient had her sleeping meds and night time medication late this morning and this has caused her to be groggy all day. Just checked on patient to see about giving her 1500 lyrica and she is still resting. She has been awake to eat her meals and then dozes right off again. Original Note: Patient has been sleeping this morning, she had her night time medication around 0100 this morning. Her morning medications have also been given. Patient has been up to the bathroom to void and ate some of her breakfast. Patient sleeping soundly now.
--- NOTE | 2024-01-02 15:27 | CM.DANOTE ---
DCP Assessment Note: Pt is a 43yo female, resident of [place], is admitted for pulmonary edema, SOB. Pt lives in a house with her and 4 children. Pt's Primary Care Provider is Dr. Eduard Arreguin and insurance is [facility] and Medicaid. Reviewed chart and team rounds for pt's medical status and initial discharge needs. Per hospitalist, pt is anticipated to be kept for further diuresis and discharge home when stable. DCP met w/patient at bedside; introduced self and role. Patient was found in bed, alert and oriented, cooperative with assessment. Pt confirmed living situation and good support in ( information was not in chart, updated). Pt expressed preference in returning home when medically stable, she believes this could possibly take place tomorrow, 01/02. No discharge needs identified, declined need for any HH or services in the community. Plan: Anticipating discharge home with spouse to transport when medically cleared. CM team will follow closely for coordination of discharge plans. GIDEON Fletcher Discharge Planning/Care Management CM Discharge Assessment Start: 01/02/24 13:25 Freq: Status: Active Protocol: Document 01/02/24 13:25 MW (Rec: 01/02/24 13:29 MW [id number]) Discharge Planning Assessment Assigned [employer]er JOSÉ Irizarry DPOA/Assigned Designee Name Anam Guillaume, Contact Information [phone] Advance Directives? No Advance Directives on File No History Provided By Patient,Medical Record Has Patient been admitted in last 30 No days? Prior Living Arrangements House Household Members spouse,children Type of transporation used prior to Drives own vehicle admit Independent with ADL's Yes Is patient alert and oriented? Yes Caregiver for Another Yes: Pt has 4 children DME Already Rented / Owned Oxygen Comment Patient reports she does not use oxygen at baseline but still has leftover from previous admission. Barriers to Discharge No Discharge Plan Home Transportation Arrangement Spouse Referrals Initiated None needed Whiteboard Updated in Patient Room with Yes name and ext. 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
--- NOTE | 2024-01-02 15:53 | P.HP_ITS ---
History of Present Illness History of Present Illness Date Patient Seen: 01/02/24 Time Patient Seen: 15:54 Chief complaint: kidneys not functioning well, short of breath Narrative: Per overnight provider, 43 years old female with history of recurrent left-sided pleural effusion requiring thoracentesis from uncertain etiology, CHF with preserved ejection fraction presented to the ER with increased shortness of breath and swelling of lower extremities in the last couple of days. The patient was seen by cardiology and was put on multiple cardiac medications including diuretics in the last 6 months. Last week when she was in [facility] she had near syncopal episodes and went to the local hospital. She was found to have acute kidney injury with creatinine around 3 and hypotension. Her diuretics were stopped and has not been resumed in the last several days. Since then the patient started experience increased shortness of breath, weight gain and swelling of her legs. Denies any chest pain, cough, fever, palpitations, nausea, vomiting, abdominal pain, diarrhea or dysuria. Follow-up with pulmonary for her recurrent left pleural effusion. She has multiple thoracentesis in the past 4 days. Laboratory shows WBC 11.4, sodium 136, potassium 4, creatinine 0.99, blood sugar 94, LFT normal, troponin 0.0 12, BNP 559, lipase 35, respiratory viral panel negative, UA negative. Chest x-ray shows moderate loculated left-sided pleural effusion with left basilar atelectasis decreased compared to prior. EKG sinus rhythm without any changes. In the ER she was found to be hypoxic in mid 80s, improved with bedrest. She was given albuterol nebulizer, aspirin 324, Lasix 80 mg IV and was decided to be admitted for further management. Interval history: Patient reports improvement today subjectively, remains on a small amount of supplemental oxygen. She is peeing a lot. In review of her previous notes, pleural fluid is transudative and likely due to diastolic heart failure. Xray shows improvement from previous films. [facility] Medical History Hot flashes due to menopause Onychomycosis Chronic pain due to neoplasm Functional memory problem BMI 45.0-49.9, adult History of colon polyps Insomnia disorder, with non-sleep disorder mental comorbidity Bilateral chronic knee pain Acute pain of right knee UTI (urinary tract infection) Paget's disease of bone Obstructive sleep apnea on CPAP Lymphedema of arm Essential hypertension Major depressive disorder Abrasion, corneal Migraines Fibromyalgia (~05/2017) History of PCR DNA positive for HSV1 (~2014) Hypothyroidism (~2008) Rheumatoid arthritis Asthma Depression Irritable bowel syndrome Diverticular disease (~2015) Gestational diabetes mellitus (GDM) (10/27/14) Morbid obesity with body mass index (BMI) of 40.0 to 44.9 in adult (11/08/10) Surgical History Status post laparoscopy (01/19/16) Status post laparoscopic supracervical hysterectomy (10/23/15) Status post delivery (12/30/14) Status post tubal ligation (12/30/14) Status post surgery (07/07/12) Family History Grandmother Stroke Grandfather Heart disease Cancer Father Hypertension Mother Hypothyroidism (acquired) Social History marital status: household members: spouse and children lives independently: Yes Smoking Status: Former smoker alcohol intake: current substance use type: does not use Meds Home Medications and Allergies Home Medications Medication Instructions Recorded Confirmed Type albuterol sulfate 2.5 mg/3 mL 2.5 mg (3 mL) inhalation Q4-6H PRN 11/01/20 01/02/24 Rx (0.083 %) solution for nebulization bronchospasm #90 mL tizanidine 4 mg tablet 1 mg (1/4 x 4 mg) PO 3XD PRN for 07/29/23 01/02/24 Rx muscle spasm #270 tabs albuterol sulfate 90 mcg/actuation 2 puff inhalation Q4HP PRN 08/01/23 01/02/24 Rx aerosol inhaler (Ventolin HFA) shortness of breath or wheezing #1 ea levothyroxine 150 mcg tablet 150 mcg PO QAM 09/01/23 01/02/24 History metoprolol tartrate 25 mg tablet 25 mg PO BID #180 tabs 09/10/23 01/02/24 Rx ibuprofen 200 mg tablet (Motrin IB) 400 mg (2 x 200 mg) PO Q8H PRN 09/18/23 01/02/24 Rx pain (scale score 4-6) #30 tabs bupropion HCl 150 mg 24 hr tablet, 150 mg PO DAILY #90 tabs 10/14/23 01/02/24 Rx extended release duloxetine 60 mg capsule,delayed 60 mg PO DAILY #90 caps 10/21/23 01/02/24 Rx release quetiapine 25 mg tablet 75 mg (3 x 25 mg) PO BEDTIME #90 11/07/23 01/02/24 Rx tabs furosemide 40 mg tablet See Rx Instructions PO DAILY #180 11/24/23 01/02/24 Rx tabs spironolactone 25 mg tablet 25 mg PO DAILY #90 tabs 11/24/23 01/02/24 Rx pregabalin 200 mg capsule See Rx Instructions .Route 12/11/23 01/02/24 Rx .COMPLEX fibromyalgia M79.7 #270 caps oxycodone 5 mg tablet 10 mg (2 x 5 mg) PO Q4H PRN pain 12/24/23 01/02/24 Rx #213 tabs amitriptyline 150 mg tablet 150 mg PO ONCE PM #90 tabs 12/30/23 01/02/24 Rx Allergies Allergy/AdvReac Type Severity Reaction Status Date / Time Penicillins [PENICILLINS] Allergy Mild Rash Verified 01/01/24 22:09 fluconazole [From DIFLUCAN] AdvReac Intermediate vomiting Verified 01/01/24 22:09 and abd pain codeine [CODEINE] AdvReac Mild NAUSEA Verified 01/01/24 22:09 Review of Systems Review of Systems Narrative: All other systems reviewed with the patient and are negative unless otherwise stated. Exam Vital Signs (past 8 hours): - 01/02/24 08:00 01/02/24 10:53 01/02/24 12:00 Temperature 97.8 F 97.8 F Pulse Rate 84 72 Respiratory Rate 16 16 Blood Pressure 114/70 121/70 Pulse Oximetry 93 96 97 Oxygen Delivery Method Nasal Cannula Oxygen Flow Rate 1 1.5 0 Fraction of Inspired Oxygen 24 SaO2/FiO2 Ratio 433 Oxygen Delivery Method Nasal Cannula Oxygen Flow Rate 0 Narrative Exam Narrative: Gen: NAD, resting in bed with nasal cannula, no acute distress. Resp: equal chest rise non labored breathing CV: Normal rate and rhythm Abd: Soft and non-distended, no pain upon palpation to all 4 quadrants Ext: trace b/l edema more prominent ankles rather than pretibial area. Objective Labs 01/01/24 22:11 01/01/24 22:11 Labs: Laboratory Results - last 24 hr 01/01/24 01/01/24 01/02/24 22:11 22:15 06:03 WBC 11.4 H RBC 4.33 Hgb 12.2 Hct 37.6 MCV 86.7 MCH 28.2 MCHC 32.6 RDW 18.3 H Plt Count 277 Neut % (Auto) 71.2 Lymph % (Auto) 17.1 L [place] % (Auto) 7.3 Eos % (Auto) 3.7 Baso % (Auto) 0.7 Neut # (Auto) 8100 H Lymph # (Auto) 2000 [place] # (Auto) 800 Eos # (Auto) 400 Baso # (Auto) 100 PT 11.7 INR 1.0 APTT 35 Sodium 136 L Potassium 4.0 Chloride 101 Carbon Dioxide 30 BUN 13 Creatinine 0.99 Estimated GFR > 60 BUN/Creatinine Ratio 13.1 Glucose 94 Calcium 9.9 Magnesium 2.1 Total Bilirubin 0.5 AST 35 ALT 24 Alkaline Phosphatase 93 Total Creatine Kinase 360 H Troponin I < 0.012 NT-Pro-B Natriuret Pep 559 H Total Protein 7.5 Albumin 4.2 Globulin 3.3 Albumin/Globulin Ratio 1.3 Triglycerides 88 Cholesterol 167 LDL Cholesterol, Calc 108 H HDL Cholesterol 41 Lipase 35 Chlamy pneumoniae PCR Not detected Adenovirus (PCR) Not detected B.parapertussis DNA PCR Not detected Coronavirus OC43 (PCR) Not detected Coronavirus HKU1 (PCR) Not detected Coronavirus 229E (PCR) Not detected SARS-CoV-2 (PCR) Not detected Coronavirus NL63 (PCR) Not detected Human Metapneumovir PCR Not detected Influenza Type A (PCR) Not detected Influenza Type B (PCR) Not detected M. pneumoniae (PCR) Not detected Parainfluenza 1 (PCR) Not detected Parainfluenza 2 (PCR) Not detected Parainfluenza 3 (PCR) Not detected Parainfluenza 4 (PCR) Not detected RSV (PCR) Not detected Entero/Rhino (PCR) Not detected Assessment & Plan Assessment & Plan narrative: Diagnoses: 1. Recurrent pleural effusion, present on admission and improved. This is transudative secondary to acute on chronic diastolic heart failure 2. Acute hypoxic respiratory failure, present on admission 3. Rheumatoid arthritis, present on admission and active. No medications currently. No home administrator currently. 4. Asthma, present on admission and active. 5. Hypertension, present on admission and stable. 6. Hypothyroid, present on admission and stable. 7. Fibromyalgia, present on admission and stable. 8. ADHD, present on admission and active. 9. Morbid obesity with BMI of 43.9, present on admission and active. Plan: - continue diuresis with furosemide 40 mg IV BID. If slow improvement and resolution of hypoxia can follow up outpatient for continued pleural effusion management. - consider thoracentesis, though suspect resumption of diuresis will help with hypoxia. - wean O2 as tolerated. Code: Full, surrogate is patient's spouse DVT: Lovenox daily I have utilized all available immediate resources to obtain, update, or review the patient's current medications. Dispo: patient admitted under inpatient status. Probable discharge home in a couple of days with continued diuresis once off supplemental O2. Resume home furosemide on discharge, half previous dosing (20 mg daily) given recent admission where furosemide held after ANGÉLICA. Additional history obtained via discussions with the overnight provider, bedside RN, case management staff today. These discussions contributed to the creation of the above assessment and plan. I have reviewed patient's presenting documentation, labs, and imaging personally. Time-Based Coding :: [TOTAL MINUTES] spent with patient and on the chart (including review of chart, obtaining history, exam, reviewing outside data, placing orders, documenting exam and treatment plan, and counseling patient) on [DATE]. Quality VTE Deep Vein Thrombosis/Pulmonary Embolism Present on Admission: No
[2024-01-02] MEDS: FUROSEMIDE 40 MG/4 ML VIAL IV (21:03)
[2024-01-02] MEDS: QUETIAPINE 25 MG TABLET 75 MG PO (21:05)
[2024-01-03] VITALS (9 sets, daily range): BP systolic 88–120; BP diastolic 46–72; PULSE 66–81; RESP 18–22; TEMP 36.3–36.6; O2SAT 90–96
[2024-01-03] MEDS: LEVOTHYROXINE 75 MCG TABLET 150 MCG PO (06:41)
--- NOTE | 2024-01-03 07:57 | P.PN_ITS ---
Subjective Subjective Interval history: She says that she slept well and that she is not hungry for breakfast. The CBC and CMP on 12/31 were normal. The CK was 360 and the BNP is 559. She is wheezing and sounds quite tight today. She tells me that she has not on oxygen at home. She remains on 2-3 L of oxygen. Exam Vital Signs (past 8 hours): Fraction of Inspired Oxygen 24 SaO2/FiO2 Ratio 433 Oxygen Delivery Method Nasal Cannula Oxygen Flow Rate 2 Narrative Exam Narrative: She is alert and oriented x3. No apparent distress. Heart is regular rate and rhythm without murmur. Lungs have heavy wheezing bilaterally. The air flow is tight. There is no ankle edema. Objective Labs 01/03/24 09:00 01/03/24 09:00 [facility] Medical History Hot flashes due to menopause Onychomycosis Chronic pain due to neoplasm Functional memory problem BMI 45.0-49.9, adult History of colon polyps Insomnia disorder, with non-sleep disorder mental comorbidity Bilateral chronic knee pain Acute pain of right knee UTI (urinary tract infection) Paget's disease of bone Obstructive sleep apnea on CPAP Lymphedema of arm Essential hypertension Major depressive disorder Abrasion, corneal Migraines Fibromyalgia (~05/2017) History of PCR DNA positive for HSV1 (~2014) Hypothyroidism (~2008) Rheumatoid arthritis Asthma Depression Irritable bowel syndrome Diverticular disease (~2015) Gestational diabetes mellitus (GDM) (10/27/14) Morbid obesity with body mass index (BMI) of 40.0 to 44.9 in adult (11/08/10) Surgical History Status post laparoscopy (01/19/16) Status post laparoscopic supracervical hysterectomy (10/23/15) Status post delivery (12/30/14) Status post tubal ligation (12/30/14) Status post surgery (07/07/12) Family History Grandmother Stroke Grandfather Heart disease Cancer Father Hypertension Mother Hypothyroidism (acquired) Social History marital status: household members: spouse and children lives independently: Yes Smoking Status: Former smoker alcohol intake: current substance use type: does not use Assessment & Plan Assessment & Plan narrative: 1. Recurrent pleural effusion, present on admission and improved. This is transudative secondary to acute on chronic diastolic heart failure 2. Acute hypoxic respiratory failure, present on admission 3. Rheumatoid arthritis, present on admission and active. No medications currently. 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 4. Asthma, present on admission and active. 5. Hypertension, present on admission and stable. 6. Hypothyroid, present on admission and stable. 7. Fibromyalgia, present on admission and stable. 8. ADHD, present on admission and active. 9. Morbid obesity with BMI of 43.9, present on admission and active. Plan: - continue diuresis with furosemide 40 mg IV BID. If slow improvement and resolution of hypoxia can follow up outpatient for continued pleural effusion management. - consider thoracentesis, though suspect resumption of diuresis will help with hypoxia. - wean O2 as tolerated. -repeat chest x-ray on 01/04/2024. Code: Full, surrogate is patient's spouse DVT: Lovenox daily Time-Based Coding :: [TOTAL MINUTES] spent with patient and on the chart (including review of chart, obtaining history, exam, reviewing outside data, placing orders, documenting exam and treatment plan, and counseling patient) on [DATE]. Quality VTE Deep Vein Thrombosis/Pulmonary Embolism Present on Admission: No
[2024-01-03] MEDS: PREGABALIN 25 MG CAPSULE 50 MG PO ×3 (08:48→21:13)
[2024-01-03] MEDS: ACETAMINOPHEN 325 MG TABLET 650 MG PO ×2 (08:48→19:31)
[2024-01-03] MEDS: buPROPion XL 150 MG TAB PO (08:49)
[2024-01-03] MEDS: DULOXETINE 30 MG CAPSULE 60 MG PO (08:49)
[2024-01-03] MEDS: ASPIRIN EC 81 MG TABLET PO (08:49)
[2024-01-03] MEDS: METOPROLOL IR 25 MG TABLET PO (08:49)
[2024-01-03] MEDS: OXYCODONE IR 5 MG TABLET 10 MG PO (08:49)
[2024-01-03] MEDS: SPIRONOLACTONE 25 MG TABLET PO (08:49)
[2024-01-03] MEDS: PREGABALIN 75 MG CAPSULE 150 MG PO ×3 (08:49→21:13)
[2024-01-03] MEDS: FUROSEMIDE 40 MG/4 ML VIAL IV ×2 (08:50→21:13)
[2024-01-03] MEDS: ALBUTEROL 2.5 MG/3 ML NEB (ADULT) INH (09:14)
[2024-01-03 09:18] LABS: Add Manual Diff / Slide Review NO; Basophils Absolute Auto 100 /uL (0-100); Basophils Percent Auto 0.7 % (0-2); Eosinophils Absolute Auto 300 /uL (0-450); Eosinophils Percent Auto 2.6 % (2-4); Hemoglobin 13.1 g/dL (12.0-16.0); Lymphocytes Absolute Auto 1200 /uL (1100-4500); Mean Corpuscular HGB Conc 32.7 % (30-36); Mean Corpuscular Hemoglobin 28.3 PG (26-34); Mean Corpuscular Volume 86.4 fL (80-100); Monocytes Absolute Auto 500 /uL (0-900); Monocytes Percent Auto 4.2 % (3-14); Neutrophils Absolute Auto 9900 /uL (1500-7000); Neutrophils Percent Auto 82.5 % (50-75); Platelet Count 256 X10^3/uL (150-400); Red Blood Cell Count 4.63 X10^6/uL (4.0-5.2); Red Cell Distribution Width 18.8 % (11.6-14.8)
[2024-01-03 09:45] LABS: Alanine Aminotransferase 25 IU/L (<35); Albumin 3.7 g/dL (3.5-5.0); Albumin Globulin Ratio 1.1 (1.0-2.8); Alkaline Phosphatase 101 U/L (38-126); Aspartate Aminotransferase 47 IU/L (14-36); BUN Creatinine Ratio 16.1 (6-22); Bilirubin Total 0.6 mg/dL (0.2-1.3); Blood Urea Nitrogen 15 mg/dL (7-17); Carbon Dioxide 34 mmol/L (22-32); Chloride 97 mmol/L (98-107); Estimated Glomerular Filt Rate > 60 mL/min (>60); Globulin 3.4 g/dL (1.7-4.1); Glucose 109 mg/dL (70-100); HEMOLYSIS < 15 (0-50); Magnesium 2.1 mg/dL (1.6-2.3); Potassium 3.8 mmol/L (3.4-5.1); Sodium 136 mmol/L (137-145); Total Protein 7.1 g/dL (6.3-8.2)
[2024-01-03] MEDS: TRAMADOL 50 MG TABLET PO ×2 (14:52→21:57)
--- NOTE | 2024-01-03 16:06 | DI.RAD.S_ITS ---
PROCEDURE: XR CHEST 2V INDICATIONS: pleural effusion TECHNIQUE: 2 views of the chest were acquired. COMPARISON: [facility], , XR CHEST 1V, 01/01/2024, 22:06. FINDINGS: Surgical changes and devices: None. Lungs and pleura: Compared to prior CT on 01/01/2024, increasing left pleural effusion, now moderate to large in size. Right lung remains largely clear. No pneumothorax. Mediastinum: Mediastinal contours are normal. Heart size is normal. Bones and chest wall: No suspicious bony abnormalities. Soft tissues appear unremarkable. IMPRESSION: Compared to prior radiograph on 01/01/2024, increased moderate to large left loculated pleural effusion. Approved by: Makayla Dahl M.D.,Ph.D. on 01/03/2024 at 17:38
--- NOTE | 2024-01-03 18:32 | DI.CT.S_ITS ---
PROCEDURE: CT CHEST WO CON INDICATIONS: Left Pleural Effusion TECHNIQUE: Noncontrast 5 mm thick sections acquired from the pulmonary apices to the posterior costophrenic angles. 1 mm lung window, 5 mm thick coronal and sagittal and 7 mm axial MIP reformats were then acquired. For radiation dose reduction, the following was used: automated exposure control, adjustment of mA and/or kV according to patient size. COMPARISON: CT chest abdomen pelvis 10/22/[address] chest 09/02/2023. FINDINGS: Image quality: Diagnostic. Lower Neck: No enlarged lymph nodes. Thyroid: No thyroid nodules which require sonographic follow up, per consensus guidelines. Axillae: No enlarged lymph nodes. Chest Wall: Unremarkable. Bones: Unremarkable. Lungs and Pleura: No pneumothorax. Loculated moderate size left pleural effusion with subjacent atelectasis. No suspicious pulmonary nodule. Heart: Heart size is normal. No pericardial effusion. Thoracic Vessels: The aorta and pulmonary arteries demonstrate normal size. Mediastinum and Corin: No enlarged lymph nodes. Esophagus: No wall thickening. No hiatal hernia. Upper Abdomen: Visualized upper abdomen solid organs and bowel loops appear normal. IMPRESSION: Moderate loculated left pleural effusion with subjacent atelectasis query superimposed consolidation in the left lower lobe. Consider follow-up CT in 3 months to demonstrate resolution. Approved by: Makayla Dahl M.D.,Ph.D. on 01/03/2024 at 19:40
[2024-01-03] MEDS: DOCUSATE 100 MG CAPSULE PO (21:13)
[2024-01-03] MEDS: QUETIAPINE 25 MG TABLET 75 MG PO (21:13)
[2024-01-03] MEDS: AMITRIPTYLINE 25 MG TABLET 150 MG PO (21:13)
[2024-01-03] MEDS: ENOXAPARIN 40 MG/0.4 ML SYRINGE SUBCUT (21:14)
[2024-01-04 00:40] VITALS: BP 101/48; PULSE 72; RESP 20; TEMP 35.6; O2SAT 90
[2024-01-04 04:17] VITALS: BP 99/61; PULSE 74; RESP 18; TEMP 36; O2SAT 100
[2024-01-04] MEDS: TRAMADOL 50 MG TABLET PO (04:46)
[2024-01-04 04:50] LABS: Add Manual Diff / Slide Review NO; Basophils Absolute Auto 0 /uL (0-100); Basophils Percent Auto 0.4 % (0-2); Eosinophils Absolute Auto 400 /uL (0-450); Eosinophils Percent Auto 3.9 % (2-4); Hemoglobin 12.6 g/dL (12.0-16.0); Lymphocytes Absolute Auto 1700 /uL (1100-4500); Mean Corpuscular HGB Conc 32.2 % (30-36); Mean Corpuscular Volume 86.8 fL (80-100); Monocytes Absolute Auto 600 /uL (0-900); Monocytes Percent Auto 5.7 % (3-14); Neutrophils Absolute Auto 7300 /uL (1500-7000); Platelet Count 227 X10^3/uL (150-400); Red Blood Cell Count 4.49 X10^6/uL (4.0-5.2)
[2024-01-04 05:03] LABS: Alanine Aminotransferase 20 IU/L (<35); Albumin 3.5 g/dL (3.5-5.0); Albumin Globulin Ratio 1.1 (1.0-2.8); Alkaline Phosphatase 102 U/L (38-126); Aspartate Aminotransferase 36 IU/L (14-36); BUN Creatinine Ratio 23.6 (6-22); Bilirubin Total 0.5 mg/dL (0.2-1.3); Blood Urea Nitrogen 25 mg/dL (7-17); Calcium 9.3 mg/dL (8.4-10.2); Carbon Dioxide 36 mmol/L (22-32); Chloride 94 mmol/L (98-107); Estimated Glomerular Filt Rate > 60 mL/min (>60); Globulin 3.2 g/dL (1.7-4.1); Glucose 96 mg/dL (70-100); HEMOLYSIS < 15 (0-50); Magnesium 2.2 mg/dL (1.6-2.3); Potassium 3.3 mmol/L (3.4-5.1); Sodium 134 mmol/L (137-145); Total Protein 6.7 g/dL (6.3-8.2)
--- NOTE | 2024-01-04 06:21 | PC.NURSE ---
Mild hypotension at start of shift with SBP in 80s. Metoprolol held. Bp improved enough to give tramadol for pleuritic pain which allowed pt to sleep quite well overnight. LS coarse with wheezes. 2L NC. +1 edema in BLE which pt states is quite improved. Good response to IV lasix. Possible thoracentesis
[2024-01-04] MEDS: LEVOTHYROXINE 75 MCG TABLET 150 MCG PO (06:55)
[2024-01-04 08:47] VITALS: BP 112/68; PULSE 83; RESP 19; TEMP 36.1; O2SAT 94
[2024-01-04] MEDS: PREGABALIN 75 MG CAPSULE 150 MG PO ×3 (10:00→20:43)
[2024-01-04] MEDS: SPIRONOLACTONE 25 MG TABLET PO (10:00)
[2024-01-04] MEDS: DULOXETINE 30 MG CAPSULE 60 MG PO (10:00)
[2024-01-04] MEDS: ASPIRIN EC 81 MG TABLET PO (10:00)
[2024-01-04] MEDS: METOPROLOL IR 25 MG TABLET PO (10:00)
[2024-01-04] MEDS: buPROPion XL 150 MG TAB PO (10:00)
[2024-01-04] MEDS: ENOXAPARIN 40 MG/0.4 ML SYRINGE SUBCUT ×2 (10:01→20:45)
[2024-01-04] MEDS: DOCUSATE 100 MG CAPSULE PO ×2 (10:01→20:44)
[2024-01-04] MEDS: TRAMADOL 50 MG TABLET 100 MG PO ×2 (10:01→14:12)
[2024-01-04] MEDS: FUROSEMIDE 40 MG/4 ML VIAL IV ×2 (10:02→20:45)
[2024-01-04] MEDS: POTASSIUM CHLORIDE 20 MEQ TAB 40 MEQ PO (10:04)
[2024-01-04] MEDS: PREGABALIN 25 MG CAPSULE 50 MG PO ×2 (10:04→15:36)
[2024-01-04 10:11] VITALS: PULSE 88; RESP 18; O2SAT 90
--- NOTE | 2024-01-04 15:13 | CM.DPNOTE ---
DCP Cont Reviewed chart. Patient discussed in multidisciplinary rounds. Dr Valera seeking transfer for needed surgery on patient's lungs that cannot be done at . CM team following closely in case any discharge needs or concerns arise. JACLYN
[2024-01-04] MEDS: HYDROMORPHONE 1 MG INJ IV ×2 (16:37→20:45)
[2024-01-04] MEDS: ALBUTEROL 2.5 MG/3 ML NEB (ADULT) INH (17:17)
[2024-01-04 17:18] VITALS: PULSE 73; RESP 18; O2SAT 93
--- NOTE | 2024-01-04 17:44 | P.PN_ITS ---
Subjective Subjective Interval history: Her worsening left-sided chest pain and dyspnea led to a follow-up chest x-ray which showed an enlarging pleural effusion. This was followed by a CT scan which showed a loculated pleural effusion. This was discussed with Dr. Herring, General surgery, who recommended transfer to a hospital situation where thoracic surgery is available and the specialized Anesthesiology equipment is available for a decortication procedure. This was explained to the patient. I talked with the general surgery resident on-call at [facility] who indicated that they expected their thoracic surgeon to be available on the day after the holiday and that we could transfer her there if there was a bed and a hospitalist to manage. It looks like, now at the end of the day that this will probably be delayed until tomorrow. We have added IV Dilaudid for pain as the oxycodone/tramadol were now less effective. Exam Vital Signs (past 8 hours): - 01/04/24 10:11 01/04/24 17:18 Pulse Rate 88 73 Respiratory Rate 18 18 Pulse Oximetry 90 L 93 Oxygen Delivery Method Nasal Cannula Nasal Cannula Oxygen Flow Rate 2 2 Fraction of Inspired Oxygen 24 SaO2/FiO2 Ratio 433 Oxygen Delivery Method Nasal Cannula Oxygen Flow Rate 2 Narrative Exam Narrative: Alert and oriented x3. Mild distress from anxiety about current situation not improving. Tender on the left posterior upper back/chest. Heart is regular rate and rhythm no murmur Lungs are clear to auscultation bilaterally Extremities have no ankle edema Objective Labs 01/04/24 04:10 01/04/24 04:10 Labs: Laboratory Results - last 24 hr 01/04/24 04:10 WBC 10.0 RBC 4.49 Hgb 12.6 Hct 39.0 MCV 86.8 MCH 28.0 MCHC 32.2 RDW 19.0 H Plt Count 227 Neut % (Auto) 73.0 Lymph % (Auto) 17.0 L [place] % (Auto) 5.7 Eos % (Auto) 3.9 Baso % (Auto) 0.4 Neut # (Auto) 7300 H Lymph # (Auto) 1700 [place] # (Auto) 600 Eos # (Auto) 400 Baso # (Auto) 0 Sodium 134 L Potassium 3.3 L Chloride 94 L Carbon Dioxide 36 H BUN 25 H Creatinine 1.06 H Estimated GFR > 60 BUN/Creatinine Ratio 23.6 H Glucose 96 Calcium 9.3 Magnesium 2.2 Total Bilirubin 0.5 AST 36 ALT 20 Alkaline Phosphatase 102 Total Protein 6.7 Albumin 3.5 Globulin 3.2 Albumin/Globulin Ratio 1.1 [facility] Medical History Hot flashes due to menopause Onychomycosis Chronic pain due to neoplasm Functional memory problem BMI 45.0-49.9, adult History of colon polyps Insomnia disorder, with non-sleep disorder mental comorbidity Bilateral chronic knee pain Acute pain of right knee UTI (urinary tract infection) Paget's disease of bone Obstructive sleep apnea on CPAP Lymphedema of arm Essential hypertension Major depressive disorder Abrasion, corneal Migraines Fibromyalgia (~05/2017) History of PCR DNA positive for HSV1 (~2014) Hypothyroidism (~2008) Rheumatoid arthritis Asthma Depression Irritable bowel syndrome Diverticular disease (~2015) Gestational diabetes mellitus (GDM) (10/27/14) Morbid obesity with body mass index (BMI) of 40.0 to 44.9 in adult (11/08/10) Surgical History Status post laparoscopy (01/19/16) Status post laparoscopic supracervical hysterectomy (10/23/15) Status post delivery (12/30/14) Status post tubal ligation (12/30/14) Status post surgery (07/07/12) Family History Grandmother Stroke Grandfather Heart disease Cancer Father Hypertension Mother Hypothyroidism (acquired) Social History marital status: household members: spouse and children lives independently: Yes Smoking Status: Former smoker alcohol intake: current substance use type: does not use Assessment & Plan Assessment & Plan narrative: 1. Recurrent pleural effusion, present on admission and improved. This was transudative secondary to acute on chronic diastolic heart failure but has now become loculated based on 01/02 CT scan. 2. Acute hypoxic respiratory failure, present on admission 3. Rheumatoid arthritis, present on admission and active. No medications currently. No seat builder currently. 4. Asthma, present on admission and active. 5. Hypertension, present on admission and stable. 6. Hypothyroid, present on admission and stable. 7. Fibromyalgia, present on admission and stable. 8. ADHD, present on admission and active. 9. Morbid obesity with BMI of 43.9, present on admission and active. 10. Hypokalemia secondary to Lasix. Plan: - continue diuresis with furosemide 40 mg IV BID. Continue spironolactone and add potassium chloride 20 mEq daily. Follow electrolytes daily. - since the effusion is enlarging and is now loculated recommends transfer to CT surgery for Decortication - pending transfer to [facility] where Dr. Sanchez is expected to be available for this procedure on 01/05. Code: Full, surrogate is patient's spouse DVT: Lovenox daily Time-Based Coding :: [TOTAL MINUTES] spent with patient and on the chart (including review of chart, obtaining history, exam, reviewing outside data, placing orders, documenting exam and treatment plan, and counseling patient) on [DATE]. Quality VTE Deep Vein Thrombosis/Pulmonary Embolism Present on Admission: No
[2024-01-04 20:00] VITALS: BP 101/53; PULSE 78; RESP 21; TEMP 36.1; O2SAT 91
[2024-01-04] MEDS: AMITRIPTYLINE 25 MG TABLET 150 MG PO (20:42)
[2024-01-04] MEDS: QUETIAPINE 25 MG TABLET 75 MG PO (20:44)
[2024-01-04] MEDS: SODIUM CHLORIDE 0.9% FLUSH 10 ML IV (21:11)
[2024-01-05] VITALS (8 sets, daily range): BP systolic 96–111; BP diastolic 46–70; PULSE 62–87; RESP 15–19; TEMP 35.9–36.2; O2SAT 92–98
[2024-01-05] MEDS: LEVOTHYROXINE 75 MCG TABLET 150 MCG PO (05:02)
[2024-01-05] MEDS: HYDROMORPHONE 1 MG INJ IV ×5 (05:02→22:05)
[2024-01-05 05:34] LABS: Add Manual Diff / Slide Review NO; Basophils Absolute Auto 0 /uL (0-100); Basophils Percent Auto 0.3 % (0-2); Eosinophils Absolute Auto 400 /uL (0-450); Eosinophils Percent Auto 3.4 % (2-4); Hematocrit 39.8 % (36-46); Lymphocytes Absolute Auto 1400 /uL (1100-4500); Lymphocytes Percent Auto 12.6 % (25-40); Mean Corpuscular HGB Conc 32.6 % (30-36); Mean Corpuscular Hemoglobin 28.2 PG (26-34); Mean Corpuscular Volume 86.5 fL (80-100); Monocytes Absolute Auto 600 /uL (0-900); Monocytes Percent Auto 5.6 % (3-14); Neutrophils Absolute Auto 8900 /uL (1500-7000); Neutrophils Percent Auto 78.1 % (50-75); Platelet Count 220 X10^3/uL (150-400); Red Blood Cell Count 4.61 X10^6/uL (4.0-5.2); Red Cell Distribution Width 19.1 % (11.6-14.8); White Blood Cell Count 11.4 X10^3/uL (4.5-11.0)
[2024-01-05 05:52] LABS: Alanine Aminotransferase 18 IU/L (<35); Albumin 3.7 g/dL (3.5-5.0); Albumin Globulin Ratio 1.1 (1.0-2.8); Alkaline Phosphatase 93 U/L (38-126); Aspartate Aminotransferase 29 IU/L (14-36); BUN Creatinine Ratio 19.2 (6-22); Bilirubin Total 0.6 mg/dL (0.2-1.3); Blood Urea Nitrogen 23 mg/dL (7-17); Calcium 9.3 mg/dL (8.4-10.2); Chloride 93 mmol/L (98-107); Estimated Glomerular Filt Rate 57 mL/min (>60); Globulin 3.5 g/dL (1.7-4.1); Glucose 90 mg/dL (70-100); HEMOLYSIS < 15 (0-50); Magnesium 2.2 mg/dL (1.6-2.3); Potassium 3.8 mmol/L (3.4-5.1); Sodium 135 mmol/L (137-145); Total Protein 7.2 g/dL (6.3-8.2)
[2024-01-05 05:58] LABS: Carbon Dioxide 35 mmol/L (22-32)
[2024-01-05] MEDS: FUROSEMIDE 40 MG/4 ML VIAL IV (09:43)
[2024-01-05] MEDS: DOCUSATE 100 MG CAPSULE PO ×2 (09:43→21:28)
[2024-01-05] MEDS: buPROPion XL 150 MG TAB PO (09:43)
[2024-01-05] MEDS: ENOXAPARIN 40 MG/0.4 ML SYRINGE SUBCUT ×2 (09:44→21:28)
[2024-01-05] MEDS: POTASSIUM CHLORIDE 20 MEQ TAB PO (09:44)
[2024-01-05] MEDS: PREGABALIN 75 MG CAPSULE 150 MG PO ×3 (09:44→21:28)
[2024-01-05] MEDS: DULOXETINE 30 MG CAPSULE 60 MG PO (09:44)
[2024-01-05] MEDS: ASPIRIN EC 81 MG TABLET PO (09:44)
[2024-01-05] MEDS: PREGABALIN 25 MG CAPSULE 50 MG PO ×2 (09:46→15:56)
[2024-01-05] MEDS: SODIUM CHLORIDE 0.9% FLUSH 10 ML IV ×3 (09:47→21:29)
[2024-01-05] MEDS: METOPROLOL IR 25 MG TABLET PO ×2 (14:07→21:28)
[2024-01-05] MEDS: ALBUTEROL 2.5 MG/3 ML NEB (ADULT) INH (14:28)
--- NOTE | 2024-01-05 16:34 | P.PN_ITS ---
Subjective Subjective Interval history: Pending transfer for thoracic surgery evaluation. Developing ANGÉLICA, borderline low BP today. Will need to hold lasix. Her oxygen is improved though she continues to have dyspnea on exertion and imaging showed worsening effusion. CT showed loculated appearance consistent with previous. Exam Vital Signs (past 8 hours): - 01/05/24 12:00 01/05/24 14:31 01/05/24 16:00 Temperature 96.9 F L 96.7 F L Pulse Rate 77 62 Respiratory Rate 15 16 Blood Pressure 111/69 106/52 L Pulse Oximetry 96 94 97 Oxygen Delivery Method Nasal Cannula Oxygen Flow Rate 4 4 0 Fraction of Inspired Oxygen 24 SaO2/FiO2 Ratio 433 Oxygen Delivery Method Nasal Cannula Oxygen Flow Rate 0 Narrative Exam Narrative: Alert and oriented x3. Mild distress from anxiety about current situation not improving. Tender on the left posterior upper back/chest. Heart is regular rate and rhythm no murmur Lungs are clear to auscultation bilaterally Extremities have no ankle edema Objective Labs 01/05/24 04:45 01/05/24 04:45 Labs: Laboratory Results - last 24 hr 01/05/24 04:45 WBC 11.4 H RBC 4.61 Hgb 13.0 Hct 39.8 MCV 86.5 MCH 28.2 MCHC 32.6 RDW 19.1 H Plt Count 220 Neut % (Auto) 78.1 H Lymph % (Auto) 12.6 L [place] % (Auto) 5.6 Eos % (Auto) 3.4 Baso % (Auto) 0.3 Neut # (Auto) 8900 H Lymph # (Auto) 1400 [place] # (Auto) 600 Eos # (Auto) 400 Baso # (Auto) 0 Sodium 135 L Potassium 3.8 Chloride 93 L Carbon Dioxide 35 H BUN 23 H Creatinine 1.20 H Estimated GFR 57 L BUN/Creatinine Ratio 19.2 Glucose 90 Calcium 9.3 Magnesium 2.2 Total Bilirubin 0.6 AST 29 ALT 18 Alkaline Phosphatase 93 Total Protein 7.2 Albumin 3.7 Globulin 3.5 Albumin/Globulin Ratio 1.1 PFSH Medical History Hot flashes due to menopause Onychomycosis Chronic pain due to neoplasm Functional memory problem BMI 45.0-49.9, adult History of colon polyps Insomnia disorder, with non-sleep disorder mental comorbidity Bilateral chronic knee pain Acute pain of right knee UTI (urinary tract infection) Paget's disease of bone Obstructive sleep apnea on CPAP Lymphedema of arm Essential hypertension Major depressive disorder Abrasion, corneal Migraines Fibromyalgia (~05/2017) History of PCR DNA positive for HSV1 (~2014) Hypothyroidism (~2008) Rheumatoid arthritis Asthma Depression Irritable bowel syndrome Diverticular disease (~2015) Gestational diabetes mellitus (GDM) (10/27/14) Morbid obesity with body mass index (BMI) of 40.0 to 44.9 in adult (11/08/10) Surgical History Status post laparoscopy (01/19/16) Status post laparoscopic supracervical hysterectomy (10/23/15) Status post delivery (12/30/14) Status post tubal ligation (12/30/14) Status post surgery (07/07/12) Family History Grandmother Stroke Grandfather Heart disease Cancer Father Hypertension Mother Hypothyroidism (acquired) Social History marital status: household members: spouse and children lives independently: Yes Smoking Status: Former smoker alcohol intake: current substance use type: does not use Assessment & Plan Assessment & Plan narrative: 1. Recurrent pleural effusion, present on admission and improved. This was transudative secondary to acute on chronic diastolic heart failure but has now become loculated based on 01/02 CT scan. 2. Acute hypoxic respiratory failure, present on admission 3. Rheumatoid arthritis, present on admission and active. No medications currently. 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 4. Asthma, present on admission and active. 5. Hypertension, present on admission and stable. 6. Hypothyroid, present on admission and stable. 7. Fibromyalgia, present on admission and stable. 8. ADHD, present on admission and active. 9. Morbid obesity with BMI of 43.9, present on admission and active. 10. Hypokalemia secondary to Lasix. 11. ANGÉLICA due to diuresis Plan: - Need to stop diuretics today with development of ANGÉLICA with Cr up to 1.20 from 0.87. Hypoxia improved but remains dyspnic on exertion. - since the effusion is enlarging despite diuresis and is now loculated recommends transfer to CT surgery for Decortication. Will ask for thoracentesis tomorrow with IR if still unable to transfer to possibly have outpatient evaluation. Also need to stop diuretics as noted above with ANGÉLICA developing. - pending transfer to [facility] where Dr. Sanchez is expected to be available for this procedure on 01/05. Code: Full, surrogate is patient's spouse DVT: Lovenox daily Time-Based Coding :: [TOTAL MINUTES] spent with patient and on the chart (including review of chart, obtaining history, exam, reviewing outside data, placing orders, documenting exam and treatment plan, and counseling patient) on [DATE]. Quality VTE Deep Vein Thrombosis/Pulmonary Embolism Present on Admission: No
[2024-01-05] MEDS: TIZANIDINE 4 MG TABLET 1 MG PO (17:59)
[2024-01-05] MEDS: AMITRIPTYLINE 25 MG TABLET 150 MG PO (21:28)
[2024-01-05] MEDS: PREGABALIN 50 MG CAPSULE PO (21:28)
[2024-01-05] MEDS: QUETIAPINE 25 MG TABLET 75 MG PO (21:28)
--- NOTE | 2024-01-06 01:28 | PC.NURSE ---
pt sitting up in bed, appears uncomfortable. reports 8/10 pain in her chest/lung regions due to coughing. PRN dilaudid given. vss. pt A&O x4. O2 sats 94% on 4L NC w/ humidification. lung sounds coarse w/ inspiratory and expiratory wheezes. has a intermittent, non productive cough. reports being short of breath while resting and on exertion. abdomen soft and non tender with active bowel sounds x4. denies nausea. denies pain while voiding. independent in room, so bed alarm not on. refused scds. bed in lowest position, call light within reach.
[2024-01-06 04:00] VITALS: BP 101/52; PULSE 64; RESP 18; TEMP 35.7; O2SAT 97
[2024-01-06] MEDS: HYDROMORPHONE 1 MG INJ IV ×4 (04:32→22:47)
[2024-01-06 04:57] LABS: Add Manual Diff / Slide Review NO; Basophils Absolute Auto 100 /uL (0-100); Basophils Percent Auto 0.9 % (0-2); Eosinophils Absolute Auto 600 /uL (0-450); Eosinophils Percent Auto 5.7 % (2-4); Hematocrit 41.2 % (36-46); Hemoglobin 13.3 g/dL (12.0-16.0); Lymphocytes Absolute Auto 800 /uL (1100-4500); Mean Corpuscular HGB Conc 32.3 % (30-36); Mean Corpuscular Hemoglobin 27.8 PG (26-34); Monocytes Absolute Auto 800 /uL (0-900); Monocytes Percent Auto 7.2 % (3-14); Neutrophils Absolute Auto 8200 /uL (1500-7000); Neutrophils Percent Auto 78.2 % (50-75); Platelet Count 236 X10^3/uL (150-400); Red Blood Cell Count 4.79 X10^6/uL (4.0-5.2); White Blood Cell Count 10.5 X10^3/uL (4.5-11.0)
[2024-01-06 05:04] LABS: Prothrombin Time 11.7 SECONDS (9.4-12.5)
[2024-01-06 05:07] LABS: PTT Partial Thromboplastin Tim 39 SECONDS (25.1-36.5)
[2024-01-06 05:09] LABS: Alanine Aminotransferase 17 IU/L (<35); Albumin 3.8 g/dL (3.5-5.0); Albumin Globulin Ratio 1.1 (1.0-2.8); Alkaline Phosphatase 101 U/L (38-126); Aspartate Aminotransferase 25 IU/L (14-36); BUN Creatinine Ratio 21.9 (6-22); Bilirubin Total 0.7 mg/dL (0.2-1.3); Blood Urea Nitrogen 25 mg/dL (7-17); Carbon Dioxide 39 mmol/L (22-32); Chloride 93 mmol/L (98-107); Estimated Glomerular Filt Rate > 60 mL/min (>60); Globulin 3.6 g/dL (1.7-4.1); Glucose 90 mg/dL (70-100); HEMOLYSIS < 15 (0-50); Magnesium 2.5 mg/dL (1.6-2.3); Sodium 135 mmol/L (137-145); Total Protein 7.4 g/dL (6.3-8.2)
[2024-01-06] MEDS: LEVOTHYROXINE 75 MCG TABLET 150 MCG PO (06:24)
--- NOTE | 2024-01-06 08:00 | DI.US.S_ITS ---
PROCEDURE: US CHEST COMPARISON: [facility], , CHEST, 12/11/2023, 15:47. INDICATIONS: RECURRENT LEFT PLEURAL EFFUSION FINDINGS: Targeted ultrasound of the left chest demonstrates a small left pleural effusion. IMPRESSION: Small left pleural effusion. Dictated by: Fady Pereira M.D. on 01/06/2024 at 11:39 Approved by: Fady Pereira M.D. on 01/06/2024 at 11:39
[2024-01-06 08:32] VITALS: BP 96/54; PULSE 66; RESP 18; TEMP 36.1; O2SAT 98
[2024-01-06] MEDS: ENOXAPARIN 40 MG/0.4 ML SYRINGE SUBCUT ×2 (08:56→20:05)
[2024-01-06] MEDS: DULOXETINE 30 MG CAPSULE 60 MG PO (08:56)
[2024-01-06] MEDS: ASPIRIN EC 81 MG TABLET PO (08:57)
[2024-01-06] MEDS: PREGABALIN 75 MG CAPSULE 150 MG PO ×3 (08:57→20:05)
[2024-01-06] MEDS: TRAMADOL 50 MG TABLET 100 MG PO ×2 (08:57→16:27)
[2024-01-06] MEDS: DOCUSATE 100 MG CAPSULE PO ×2 (08:58→20:05)
[2024-01-06] MEDS: PREGABALIN 50 MG CAPSULE PO ×3 (08:58→20:05)
[2024-01-06] MEDS: METOPROLOL IR 25 MG TABLET PO (08:58)
[2024-01-06] MEDS: POTASSIUM CHLORIDE 20 MEQ TAB PO (08:58)
[2024-01-06] MEDS: buPROPion XL 150 MG TAB PO (08:58)
[2024-01-06] MEDS: SODIUM CHLORIDE 0.9% FLUSH 10 ML IV ×2 (09:00→20:09)
[2024-01-06 10:41] VITALS: PULSE 64; RESP 18; O2SAT 94
[2024-01-06] MEDS: ALBUTEROL 2.5 MG/3 ML NEB (ADULT) INH ×2 (10:41→17:45)
--- NOTE | 2024-01-06 11:00 | CM.DPNOTE ---
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 Per hospitalist in morning rounds, pt in heart failure, needs VATS procedure. Per special agent in charge, unsure if pt was accepted at [facility] or not for transfer vs waiting on bed availability. Plan remains for pt to transfer at this time. CM team following closely in case any discharge needs or concerns arise. Maritza Bentley, JOSÉ
--- NOTE | 2024-01-06 16:30 | P.PN_ITS ---
Subjective Subjective Interval history: Pending transfer for thoracic surgery evaluation, discussed with Dr. Sanchez agrees for need for VATS / decortication. Developed ANGÉLICA, still low BP but stable and ANGÉLICA improving after holding lasix. Not enough fluid on US for thoracentesis, Dr. Sanchez thought CT showed lung trapping in reviewing CT today. Patient still dyspnic, on 4L via nasal cannula today, with persistent cough. Exam Vital Signs (past 8 hours): - 01/06/24 08:32 01/06/24 10:41 Temperature 96.9 F L Pulse Rate 66 64 Respiratory Rate 18 18 Blood Pressure 96/54 L Pulse Oximetry 98 94 Oxygen Delivery Method Nasal Cannula Humidification Oxygen Flow Rate 4 Fraction of Inspired Oxygen 32 Fraction of Inspired Oxygen 32 SaO2/FiO2 Ratio 293 Oxygen Delivery Method Nasal Cannula,Humidification Oxygen Flow Rate 4 Narrative Exam Narrative: Alert and oriented x3. Mild distress from anxiety about current situation not improving. Tender on the left posterior upper back/chest. Heart is regular rate and rhythm no murmur Lungs are clear to auscultation bilaterally though LLL is diminished. Extremities have no ankle edema Objective Labs 01/06/24 04:20 01/06/24 04:20 Labs: Laboratory Results - last 24 hr 01/06/24 04:20 WBC 10.5 RBC 4.79 Hgb 13.3 Hct 41.2 MCV 86.0 MCH 27.8 MCHC 32.3 RDW 19.0 H Plt Count 236 Neut % (Auto) 78.2 H Lymph % (Auto) 8.0 L [place] % (Auto) 7.2 Eos % (Auto) 5.7 H Baso % (Auto) 0.9 Neut # (Auto) 8200 H Lymph # (Auto) 800 L [place] # (Auto) 800 Eos # (Auto) 600 H Baso # (Auto) 100 PT 11.7 INR 1.0 APTT 39 H Sodium 135 L Potassium 4.0 Chloride 93 L Carbon Dioxide 39 H BUN 25 H Creatinine 1.14 H Estimated GFR > 60 BUN/Creatinine Ratio 21.9 Glucose 90 Calcium 10.0 Magnesium 2.5 H Total Bilirubin 0.7 AST 25 ALT 17 Alkaline Phosphatase 101 Total Protein 7.4 Albumin 3.8 Globulin 3.6 Albumin/Globulin Ratio 1.1 PFSH Medical History Hot flashes due to menopause Onychomycosis Chronic pain due to neoplasm Functional memory problem BMI 45.0-49.9, adult History of colon polyps Insomnia disorder, with non-sleep disorder mental comorbidity Bilateral chronic knee pain Acute pain of right knee UTI (urinary tract infection) Paget's disease of bone Obstructive sleep apnea on CPAP Lymphedema of arm Essential hypertension Major depressive disorder Abrasion, corneal Migraines Fibromyalgia (~05/2017) History of PCR DNA positive for HSV1 (~2014) Hypothyroidism (~2008) Rheumatoid arthritis Asthma Depression Irritable bowel syndrome Diverticular disease (~2015) Gestational diabetes mellitus (GDM) (10/27/14) Morbid obesity with body mass index (BMI) of 40.0 to 44.9 in adult (11/08/10) Surgical History Status post laparoscopy (01/19/16) Status post laparoscopic supracervical hysterectomy (10/23/15) Status post delivery (12/30/14) Status post tubal ligation (12/30/14) Status post surgery (07/07/12) Family History Grandmother Stroke Grandfather Heart disease Cancer Father Hypertension Mother Hypothyroidism (acquired) Social History marital status: household members: spouse and children lives independently: Yes Smoking Status: Former smoker alcohol intake: current substance use type: does not use Assessment & Plan Assessment & Plan narrative: 1. Recurrent pleural effusion, present on admission and improved. This was transudative secondary to acute on chronic diastolic heart failure but has now become loculated based on 01/02 CT scan. 2. Acute hypoxic respiratory failure, present on admission 3. Rheumatoid arthritis, present on admission and active. No medications currently. 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 4. Asthma, present on admission and active. 5. Hypertension, present on admission and stable. 6. Hypothyroid, present on admission and stable. 7. Fibromyalgia, present on admission and stable. 8. ADHD, present on admission and active. 9. Morbid obesity with BMI of 43.9, present on admission and active. 10. Hypokalemia secondary to Lasix. 11. ANGÉLICA due to diuresis Plan: - Needed to stop diuretics with development of ANGÉLICA on 01/04 with Cr up to 1.20 from 0.87. Hypoxia remains today, still on 4L NC. Cr improved to 1.06 with holding diuretics. - Discussed today with Dr. Sanchez recommends transfer to [facility] to CT surgery for Decortication. Not enough fluid on ultrasound today for thoracentesis. - fluid is transudative on previous studies, no need for repeat fluid evaluation. Was presumed secondary to diastolic heart failure. No fever, leukocytosis. - continue home pain medications for fibromyalgia. Code: Full, surrogate is patient's spouse DVT: Lovenox daily Time-Based Coding :: [TOTAL MINUTES] spent with patient and on the chart (including review of chart, obtaining history, exam, reviewing outside data, placing orders, documenting exam and treatment plan, and counseling patient) on [DATE]. Quality VTE Deep Vein Thrombosis/Pulmonary Embolism Present on Admission: No
[2024-01-06] MEDS: CODEINE/GUAIFENESIN LIQUID 5ML UDC 5 ML PO (17:07)
[2024-01-06] MEDS: diphenhydrAMINE 25 MG TABLET PO (17:07)
[2024-01-06 17:26] VITALS: BP 94/42; PULSE 68; RESP 19; TEMP 36.1; O2SAT 98
[2024-01-06 19:47] VITALS: PULSE 80; O2SAT 94
[2024-01-06 20:00] VITALS: BP 99/63; PULSE 73; RESP 22; TEMP 36; O2SAT 93
[2024-01-06] MEDS: QUETIAPINE 25 MG TABLET 75 MG PO (20:05)
[2024-01-06] MEDS: AMITRIPTYLINE 25 MG TABLET 150 MG PO (20:09)
[2024-01-07 04:00] VITALS: BP 112/65; PULSE 73; RESP 18; TEMP 36.3; O2SAT 99
[2024-01-07 05:56] LABS: Alanine Aminotransferase 19 IU/L (<35); Albumin 3.8 g/dL (3.5-5.0); Albumin Globulin Ratio 1.3 (1.0-2.8); Alkaline Phosphatase 97 U/L (38-126); Aspartate Aminotransferase 27 IU/L (14-36); BUN Creatinine Ratio 23.2 (6-22); Bilirubin Total 0.5 mg/dL (0.2-1.3); Blood Urea Nitrogen 23 mg/dL (7-17); Calcium 9.6 mg/dL (8.4-10.2); Carbon Dioxide 36 mmol/L (22-32); Chloride 96 mmol/L (98-107); Estimated Glomerular Filt Rate > 60 mL/min (>60); Glucose 100 mg/dL (70-100); HEMOLYSIS < 15 (0-50); Magnesium 2.5 mg/dL (1.6-2.3); Sodium 136 mmol/L (137-145); Total Protein 6.8 g/dL (6.3-8.2)
[2024-01-07 05:57] LABS: Add Manual Diff / Slide Review NO; Basophils Absolute Auto 100 /uL (0-100); Basophils Percent Auto 0.6 % (0-2); Eosinophils Absolute Auto 600 /uL (0-450); Eosinophils Percent Auto 6.1 % (2-4); Hematocrit 39.6 % (36-46); Hemoglobin 12.7 g/dL (12.0-16.0); Lymphocytes Absolute Auto 1700 /uL (1100-4500); Lymphocytes Percent Auto 17.1 % (25-40); Mean Corpuscular HGB Conc 32.1 % (30-36); Mean Corpuscular Hemoglobin 27.6 PG (26-34); Mean Corpuscular Volume 86.1 fL (80-100); Monocytes Absolute Auto 700 /uL (0-900); Monocytes Percent Auto 7.3 % (3-14); Neutrophils Absolute Auto 6800 /uL (1500-7000); Neutrophils Percent Auto 68.9 % (50-75); Platelet Count 209 X10^3/uL (150-400); Red Cell Distribution Width 18.8 % (11.6-14.8); White Blood Cell Count 9.9 X10^3/uL (4.5-11.0)
[2024-01-07] MEDS: LEVOTHYROXINE 75 MCG TABLET 150 MCG PO (06:57)
[2024-01-07] MEDS: METOPROLOL IR 25 MG TABLET PO ×2 (08:13→20:34)
[2024-01-07] MEDS: ASPIRIN EC 81 MG TABLET PO (08:13)
[2024-01-07] MEDS: ENOXAPARIN 40 MG/0.4 ML SYRINGE SUBCUT ×2 (08:13→20:34)
[2024-01-07] MEDS: DULOXETINE 30 MG CAPSULE 60 MG PO (08:13)
[2024-01-07] MEDS: DOCUSATE 100 MG CAPSULE PO ×2 (08:13→20:34)
[2024-01-07] MEDS: buPROPion XL 150 MG TAB PO (08:13)
[2024-01-07] MEDS: PREGABALIN 50 MG CAPSULE PO ×3 (08:13→20:33)
[2024-01-07] MEDS: POTASSIUM CHLORIDE 20 MEQ TAB PO (08:13)
[2024-01-07] MEDS: PREGABALIN 75 MG CAPSULE 150 MG PO ×3 (08:14→20:34)
[2024-01-07] MEDS: SODIUM CHLORIDE 0.9% FLUSH 10 ML IV ×2 (08:14→20:42)
[2024-01-07] MEDS: HYDROMORPHONE 1 MG INJ IV ×3 (08:14→23:35)
[2024-01-07 08:21] VITALS: BP 115/58; PULSE 80; RESP 18; TEMP 35.9; O2SAT 96
[2024-01-07 10:42] VITALS: PULSE 71; RESP 18; O2SAT 96
--- NOTE | 2024-01-07 11:24 | DIET.CONS ---
Dietary Consultation Note Admission Date: 01/02/2024 00:52 Assessment: 43 y F admitted for pulmonary edema, SOB. Nutrition screened for LOS. Per healthcare team rounds, transfer pending. EMR reviewed. 75-100% recorded po intakes. DFM reviewed for meal composition. Ht: 152.4 cm Wt: 104.5 kg BMI: 43.9 UBW: 107.615 kg on 11/07/23 (<3% weight loss in 2 months, non-severe), 104.326 kg on 05/29/23 Last BM: 12/30/23 (01/02/24 01:58) MNA: 14 Jacky Score: 20 Diet: 01/02/24 Breakfast Heart Healthy Diet Diet Modifications: Nutrition Percent Meal Consumed 100% 01/07/24 10:26 Labs: RBC 4.60 X10^6/uL (4.0-5.2) 01/07/24 03:25 Hgb 12.7 g/dL (12.0-16.0) 01/07/24 03:25 Hct 39.6 % (36-46) 01/07/24 03:25 Creatinine 0.99 mg/dL (0.52-1.04) 01/07/24 03:25 NT-Pro-B Natriuret Pep 559 pg/mL (<125) H 01/01/24 22:11 Electronically Signed by: Charito Benites 01/07/24 11:24 Clinical Dietitian [address] [address]
--- NOTE | 2024-01-07 12:16 | CM.DPNOTE ---
DCP Cont Reviewed chart. Patient discussed in multidisciplinary rounds. Still awaiting transfer for thoracic surgery evaluation. No beds this morning according to coordinator. CM team following clinical course closely in case any discharge needs or concerns arise. JW
[2024-01-07] MEDS: HYDROMORPHONE 2 MG TABLET PO ×2 (13:08→16:20)
[2024-01-07 16:00] VITALS: BP 99/55; PULSE 66; RESP 17; TEMP 35.9; O2SAT 96
--- NOTE | 2024-01-07 18:24 | PM.PN.1 ---
Subjective Subjective Interval history: Pending transfer for thoracic surgery evaluation, discussed with Dr. Sanchez agrees for need for VATS / decortication. Developed ANGÉLICA, still low BP but stable and ANGÉLICA improving after holding lasix. Not enough fluid on US for thoracentesis, Dr. Sanchez thought CT showed lung trapping in reviewing CT. Patient still dyspnic, on 4L via nasal cannula today, with persistent cough. I have discussed with additional hospitals given lack of bed availability. Discussed with Prov. Barkley and CT surgeon could not provide formal recommendation over the phone, so was not accepting. awaiting callbacks from other facilities. Exam Vital Signs (past 8 hours): - 01/07/24 10:42 01/07/24 16:00 Temperature 96.6 F L Pulse Rate 71 66 Respiratory Rate 18 17 Blood Pressure 99/55 L Pulse Oximetry 96 96 Oxygen Delivery Method Nasal Cannula Humidification Oxygen Flow Rate 4 Fraction of Inspired Oxygen 32 SaO2/FiO2 Ratio 293 Oxygen Delivery Method Nasal Cannula,Humidification Oxygen Flow Rate 4 Narrative Exam Narrative: Alert and oriented x3. Mild distress from anxiety about current situation not improving. Tender on the left posterior upper back/chest. Heart is regular rate and rhythm no murmur Lungs are clear to auscultation bilaterally though LLL is diminished. Extremities have no ankle edema Objective Labs 01/07/24 03:25 01/07/24 03:25 Labs: Laboratory Results - last 24 hr 01/07/24 03:25 WBC 9.9 RBC 4.60 Hgb 12.7 Hct 39.6 MCV 86.1 MCH 27.6 MCHC 32.1 RDW 18.8 H Plt Count 209 Neut % (Auto) 68.9 Lymph % (Auto) 17.1 L [place] % (Auto) 7.3 Eos % (Auto) 6.1 H Baso % (Auto) 0.6 Neut # (Auto) 6800 Lymph # (Auto) 1700 [place] # (Auto) 700 Eos # (Auto) 600 H Baso # (Auto) 100 Sodium 136 L Potassium 4.0 Chloride 96 L Carbon Dioxide 36 H BUN 23 H Creatinine 0.99 Estimated GFR > 60 BUN/Creatinine Ratio 23.2 H Glucose 100 Calcium 9.6 Magnesium 2.5 H Total Bilirubin 0.5 AST 27 ALT 19 Alkaline Phosphatase 97 Total Protein 6.8 Albumin 3.8 Globulin 3.0 Albumin/Globulin Ratio 1.3 [facility] Medical History Hot flashes due to menopause Onychomycosis Chronic pain due to neoplasm Functional memory problem BMI 45.0-49.9, adult History of colon polyps Insomnia disorder, with non-sleep disorder mental comorbidity Bilateral chronic knee pain Acute pain of right knee UTI (urinary tract infection) Paget's disease of bone Obstructive sleep apnea on CPAP Lymphedema of arm Essential hypertension Major depressive disorder Abrasion, corneal Migraines Fibromyalgia (~05/2017) History of PCR DNA positive for HSV1 (~2014) Hypothyroidism (~2008) Rheumatoid arthritis Asthma Depression Irritable bowel syndrome Diverticular disease (~2015) Gestational diabetes mellitus (GDM) (10/27/14) Morbid obesity with body mass index (BMI) of 40.0 to 44.9 in adult (11/08/10) Surgical History Status post laparoscopy (01/19/16) Status post laparoscopic supracervical hysterectomy (10/23/15) Status post delivery (12/30/14) Status post tubal ligation (12/30/14) Status post surgery (07/07/12) Family History Grandmother Stroke Grandfather Heart disease Cancer Father Hypertension Mother Hypothyroidism (acquired) Social History marital status: household members: spouse and children lives independently: Yes Smoking Status: Former smoker alcohol intake: current substance use type: does not use Assessment & Plan Assessment & Plan narrative: 1. Recurrent pleural effusion, present on admission and improved. This was transudative secondary to acute on chronic diastolic heart failure but has now become loculated based on 01/02 CT scan. 2. Acute hypoxic respiratory failure, present on admission 3. Rheumatoid arthritis, present on admission and active. No medications currently. 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 4. Asthma, present on admission and active. 5. Hypertension, present on admission and stable. 6. Hypothyroid, present on admission and stable. 7. Fibromyalgia, present on admission and stable. 8. ADHD, present on admission and active. 9. Morbid obesity with BMI of 43.9, present on admission and active. 10. Hypokalemia secondary to Lasix. 11. ANGÉLICA due to diuresis Plan: - Needed to stop diuretics with development of ANGÉLICA on 01/04 with Cr up to 1.20 from 0.87. Hypoxia remains today, still on 4L NC. Cr improved to 1.06 with holding diuretics. Will resume home oral furosemide 40 mg tomorrow. - Discussed yesterday with Dr. Sanchez recommends transfer to [facility] to CT surgery for Decortication. Not enough fluid on ultrasound today for thoracentesis. Repeat CXR ordered for tomorrow. Expanded search to additional hospitals given lack of bed at [facility]. Patient not accepted by Prov. Barkley as CT surgeon would not do formal recommendation for surgical procedure over the phone in this case. - fluid is transudative on previous studies, no need for repeat fluid evaluation. Was presumed secondary to diastolic heart failure. No fever, leukocytosis. - continue home pain medications for fibromyalgia. Code: Full, surrogate is patient's spouse DVT: Lovenox daily Time-Based Coding :: [TOTAL MINUTES] spent with patient and on the chart (including review of chart, obtaining history, exam, reviewing outside data, placing orders, documenting exam and treatment plan, and counseling patient) on [DATE]. Quality VTE Deep Vein Thrombosis/Pulmonary Embolism Present on Admission: No
[2024-01-07] MEDS: CODEINE/GUAIFENESIN LIQUID 5ML UDC 5 ML PO (19:39)
--- NOTE | 2024-01-07 19:56 | P.EN_ITS ---
Event Note Event Note (Rapid Response, Code, or fall): Accepted at [facility], discussed with CT surgeon and accepting hospitalist Dr. Vides. Likely will have bed available tomorrow per transfer center.
--- NOTE | 2024-01-07 19:56 | PM.EVENT ---
Event Note Event Note (Rapid Response, Code, or fall): Accepted at [facility], discussed with CT surgeon and accepting hospitalist Dr. Vides. Likely will have bed available tomorrow per transfer center.
[2024-01-07 20:00] VITALS: BP 101/57; PULSE 74; RESP 22; TEMP 35.7; O2SAT 97
[2024-01-07] MEDS: QUETIAPINE 25 MG TABLET 75 MG PO (20:33)
[2024-01-07] MEDS: AMITRIPTYLINE 25 MG TABLET 150 MG PO (20:34)
[2024-01-08 04:00] VITALS: BP 105/68; PULSE 70; RESP 18; TEMP 35.7; O2SAT 97
[2024-01-08] MEDS: HYDROMORPHONE 1 MG INJ IV (05:09)
[2024-01-08] MEDS: LEVOTHYROXINE 75 MCG TABLET 150 MCG PO (05:10)
[2024-01-08 05:52] LABS: Add Manual Diff / Slide Review NO; Basophils Absolute Auto 0 /uL (0-100); Basophils Percent Auto 0.4 % (0-2); Eosinophils Absolute Auto 600 /uL (0-450); Eosinophils Percent Auto 6.6 % (2-4); Hematocrit 38.8 % (36-46); Hemoglobin 12.5 g/dL (12.0-16.0); Lymphocytes Absolute Auto 1500 /uL (1100-4500); Lymphocytes Percent Auto 17.9 % (25-40); Mean Corpuscular HGB Conc 32.3 % (30-36); Mean Corpuscular Hemoglobin 28.1 PG (26-34); Monocytes Absolute Auto 600 /uL (0-900); Neutrophils Absolute Auto 5800 /uL (1500-7000); Neutrophils Percent Auto 68.1 % (50-75); Platelet Count 193 X10^3/uL (150-400); Red Blood Cell Count 4.46 X10^6/uL (4.0-5.2); Red Cell Distribution Width 18.4 % (11.6-14.8); White Blood Cell Count 8.6 X10^3/uL (4.5-11.0)
[2024-01-08 06:13] LABS: Alanine Aminotransferase 24 IU/L (<35); Albumin 3.6 g/dL (3.5-5.0); Albumin Globulin Ratio 1.1 (1.0-2.8); Alkaline Phosphatase 95 U/L (38-126); Aspartate Aminotransferase 33 IU/L (14-36); BUN Creatinine Ratio 20.8 (6-22); Bilirubin Total 0.4 mg/dL (0.2-1.3); Blood Urea Nitrogen 22 mg/dL (7-17); Calcium 9.3 mg/dL (8.4-10.2); Carbon Dioxide 38 mmol/L (22-32); Chloride 96 mmol/L (98-107); Estimated Glomerular Filt Rate > 60 mL/min (>60); Globulin 3.3 g/dL (1.7-4.1); Glucose 84 mg/dL (70-100); HEMOLYSIS < 15 (0-50); Magnesium 2.5 mg/dL (1.6-2.3); Potassium 3.9 mmol/L (3.4-5.1); Sodium 135 mmol/L (137-145); Total Protein 6.9 g/dL (6.3-8.2)
[2024-01-08 07:20] VITALS: PULSE 67; O2SAT 93
--- NOTE | 2024-01-08 07:20 | P.DS_ITS ---
History of Present Illness History of Present Illness Chief complaint: kidneys not functioning well, short of breath Narrative: From H&P: 43 years old female with history of recurrent left-sided pleural effusion requiring thoracentesis from uncertain etiology, CHF with preserved ejection fraction presented to the ER with increased shortness of breath and swelling of lower extremities in the last couple of days. The patient was seen by cardiology and was put on multiple cardiac medications including diuretics in the last 6 months. Last week when she was in [facility] she had near syncopal episodes and went to the local hospital. She was found to have acute kidney injury with creatinine around 3 and hypotension. Her diuretics were stopped and has not been resumed in the last several days. Since then the patient started experience increased shortness of breath, weight gain and swelling of her legs. Denies any chest pain, cough, fever, palpitations, nausea, vomiting, abdominal pain, diarrhea or dysuria. Follow-up with pulmonary for her recurrent left pleural effusion. She has multiple thoracentesis in the past 4 days. Laboratory shows WBC 11.4, sodium 136, potassium 4, creatinine 0.99, blood sugar 94, LFT normal, troponin 0.0 12, BNP 559, lipase 35, respiratory viral panel negative, UA negative. Chest x-ray shows moderate loculated left-sided pleural effusion with left basilar atelectasis decreased compared to prior. EKG sinus rhythm without any changes. In the ER she was found to be hypoxic in mid 80s, improved with bedrest. She was given albuterol nebulizer, aspirin 324, Lasix 80 mg IV and was decided to be admitted for further management. Interval history: Patient reports improvement today subjectively, remains on a small amount of supplemental oxygen. She is peeing a lot. In review of her previous notes, pleural fluid is transudative and likely due to diastolic heart failure. Xray shows improvement from previous films. Discharge Providers Provider Date of admission: 01/02/24 00:52 Discharge Date: 01/08/24 Primary care physician: Eduard Arreguin DO Consults: D/W CTS at [facility]. Discharge provider: Isaac Alfred MD Summary Hospital Course Discharge Diagnosis: 1. Recurrent pleural effusion, present on admission and improved. This was transudative secondary to acute on chronic diastolic heart failure but has now become loculated based on 01/02 CT scan. 2. Acute hypoxic respiratory failure, present on admission 3. Rheumatoid arthritis, present on admission and active. No medications currently. No occupational health nurse manager currently. 4. Asthma, present on admission and active. 5. Hypertension, present on admission and stable. 6. Hypothyroid, present on admission and stable. 7. Fibromyalgia, present on admission and stable. 8. ADHD, present on admission and active. 9. Morbid obesity with BMI of 43.9, present on admission and active. 10. Hypokalemia secondary to Lasix. 11. ANGÉLICA due to diuresis Hospital Course: The patient was admitted and initially diuresed. Unfortunately she developed evidence of persistent hypoxia and ANGÉLICA. She required 4 L of nasal cannula. Her creatinine went from 0.87-1.20. After holding diuretics it improved to 1.06. Dr. Sanchez recommended transfer for decortication, however bed not available. The patient will be transferred to [facility]. Pleural effusion appears to be transudative on previous studies. Status at Discharge Cognitive/behavioral status at discharge: oriented Functional status at discharge: independent ambulation Overall status at discharge: patient is not back to baseline Exam Vital Signs (past 8 hours): - 01/08/24 04:00 Temperature 96.2 F L Pulse Rate 70 Respiratory Rate 18 Blood Pressure 105/68 Pulse Oximetry 97 Oxygen Flow Rate 3 Fraction of Inspired Oxygen 32 SaO2/FiO2 Ratio 293 Oxygen Delivery Method Nasal Cannula,Humidification Oxygen Flow Rate 3 Narrative Exam Narrative: NAD, alert and oriented. Fluent speech. Lungs are clear, normal rate and effort. Heart is regular, no murmur gallop or rub. Abdomen is soft, non distended. Extremities are free of edema. Objective ECG Impression: Normal sinus rhythm Imaging Multiple studies:: Radiologist's impression: CT ultrasound: Small left pleural effusion. CT chest:Moderate loculated left pleural effusion with subjacent atelectasis query superimposed consolidation in the left lower lobe. Consider follow-up CT in 3 months to demonstrate resolution. Labs 01/08/24 04:30 01/08/24 04:30 Labs: Laboratory Results - last 24 hr 01/08/24 04:30 WBC 8.6 RBC 4.46 Hgb 12.5 Hct 38.8 MCV 87.0 MCH 28.1 MCHC 32.3 RDW 18.4 H Plt Count 193 Neut % (Auto) 68.1 Lymph % (Auto) 17.9 L [place] % (Auto) 7.0 Eos % (Auto) 6.6 H Baso % (Auto) 0.4 Neut # (Auto) 5800 Lymph # (Auto) 1500 [place] # (Auto) 600 Eos # (Auto) 600 H Baso # (Auto) 0 Sodium 135 L Potassium 3.9 Chloride 96 L Carbon Dioxide 38 H BUN 22 H Creatinine 1.06 H Estimated GFR > 60 BUN/Creatinine Ratio 20.8 Glucose 84 Calcium 9.3 Magnesium 2.5 H Total Bilirubin 0.4 AST 33 ALT 24 Alkaline Phosphatase 95 Total Protein 6.9 Albumin 3.6 Globulin 3.3 Albumin/Globulin Ratio 1.1 [facility] Medical History Hot flashes due to menopause Onychomycosis Chronic pain due to neoplasm Functional memory problem BMI 45.0-49.9, adult History of colon polyps Insomnia disorder, with non-sleep disorder mental comorbidity Bilateral chronic knee pain Acute pain of right knee UTI (urinary tract infection) Paget's disease of bone Obstructive sleep apnea on CPAP Lymphedema of arm Essential hypertension Major depressive disorder Abrasion, corneal Migraines Fibromyalgia (~05/2017) History of PCR DNA positive for HSV1 (~2014) Hypothyroidism (~2008) Rheumatoid arthritis Asthma Depression Irritable bowel syndrome Diverticular disease (~2015) Gestational diabetes mellitus (GDM) (10/27/14) Morbid obesity with body mass index (BMI) of 40.0 to 44.9 in adult (11/08/10) Surgical History Status post laparoscopy (01/19/16) Status post laparoscopic supracervical hysterectomy (10/23/15) Status post delivery (12/30/14) Status post tubal ligation (12/30/14) Status post surgery (07/07/12) Family History Grandmother Stroke Grandfather Heart disease Cancer Father Hypertension Mother Hypothyroidism (acquired) Social History marital status: household members: spouse and children lives independently: Yes Smoking Status: Former smoker alcohol intake: current substance use type: does not use Discharge Assessment & Plan Assessment and Plan Assessment: 1. Recurrent pleural effusion, present on admission and improved. This was transudative secondary to acute on chronic diastolic heart failure but has now become loculated based on 01/02 CT scan. 2. Acute hypoxic respiratory failure, present on admission 3. Rheumatoid arthritis, present on admission and active. No medications currently. No occupational health nurse manager currently. Plan of Treatment: Transferred to [facility] for higher level of care. Discharge Plan Discharge Plan Patient Disposition: [facility] Other facility: [facility] Discharge orders & Medications Prescriptions: No Action albuterol sulfate 2.5 mg /3 mL (0.083 %) solution for nebulization 2.5 mg INHALATION Q4-6H PRN (Reason: bronchospasm) Qty: 90 3RF tizanidine 4 mg tablet 1 mg PO 3XD PRN (Reason: for muscle spasm) Qty: 270 1RF albuterol sulfate [Ventolin HFA] 90 mcg/actuation HFA aerosol inhaler 2 puff INHALATION Q4HP PRN (Reason: shortness of breath or wheezing) Qty: 1 5RF Rx Instructions: takes in absence of nebulizer metoprolol tartrate 25 mg tablet 25 mg PO BID Qty: 180 1RF Patient Comments: pt reports taking med at bedtime only 25 mg bupropion HCl 150 mg tablet extended release 24 hr 150 mg PO DAILY Qty: 90 1RF Patient Comments: Takes at bedtime Rx Instructions: TAKE 1 TABLET (150 MG) ORALLY DAILY duloxetine 60 mg capsule,delayed release(DR/EC) 60 mg PO DAILY Qty: 90 0RF Patient Comments: Takes at bedtime pregabalin 200 mg capsule See Rx Instructions .ROUTE .COMPLEX Qty: 270 3RF Rx Instructions: Take 1 capsule by mouth 3 times daily oxycodone 5 mg tablet 10 mg PO Q4H PRN (Reason: pain) Qty: 213 0RF amitriptyline 150 mg tablet 150 mg PO ONCE PM Qty: 90 1RF furosemide 40 mg tablet See Rx Instructions PO DAILY Qty: 180 3RF Rx Instructions: 40mg daily and another 40mg daily if needed for weight gain/edema quetiapine 25 mg tablet 75 mg PO BEDTIME Qty: 90 11RF Rx Instructions: TAKE 3 TABLETS BY MOUTH EVERY NIGHT AT BEDTIME. DUE FOR APPOINTMENT ibuprofen [Motrin IB] 200 mg tablet 400 mg PO Q8H PRN (Reason: pain (scale score 4-6)) Qty: 30 0RF levothyroxine 150 mcg tablet 150 mcg PO QAM Patient Comments: Takes at bedtime Medication counseling provided by Pharmacist: No Follow up/Referrals: Eduard Arreguin DO [Primary Care Provider] - Discharge Health Status Multidrug resistant organism: No MDRO Diet/Activity/Treatments Activity: As tolerated Discharge Data Primary Care Provider: Eduard Arreguin Quality VTE Deep Vein Thrombosis/Pulmonary Embolism Present on Admission: No MIPS - DC The patient has a history of heart transplant or Left Ventricular Assist Device (LVAD). If yes, STOP here.: No The patient has current or prior documentation of left ventricular ejection fraction (LVEF) less than or equal to 40%, or moderate or severely depressed left ventricular systolic function.: No
--- NOTE | 2024-01-08 08:00 | DI.RAD.S_ITS ---
PROCEDURE: XR CHEST 1V INDICATIONS: re-assess pleural effusion TECHNIQUE: One view of the chest was acquired. COMPARISON: [facility], CT, CT CHEST WO CON, 01/03/2024, 18:39. [facility], CR, XR CHEST 2V, 01/03/2024, 16:10. [facility], CR, XR CHEST 1V, 01/01/2024, 22:06. FINDINGS: Surgical changes and devices: None. Lungs and pleura: Mild blunting of the left costophrenic angle, may represent small effusion. Interstitial markings appear prominent, correlate for edema versus artifactual. Mediastinum: Mediastinal contours appear normal. Heart size is normal. Bones and chest wall: No suspicious bony lesions. Overlying soft tissues appear unremarkable. IMPRESSION: Mild blunting of the left costophrenic angle, consistent with small pleural effusion. Prominent interstitial markings bilaterally, differential includes edema or artifact. Recommend clinical correlation. Dictated by: Jackson Hayes M.D. on 01/08/2024 at 16:03 Approved by: Jackson Hayes M.D. on 01/08/2024 at 16:05
== END 2024-01-08 07:45 | disposition short-term general hospital (02) | DRG 194 ==
LOC: ED 01-02 00:47 → AC 01-02 08:42
PROVIDERS: Internal Medicine; Admitting Provider Internal Medicine; Emergency Provider Emergency Medicine; PCP Family Medicine; Visit Provider Internal Medicine
DX: I11.0 Hypertensive heart disease with heart failure (principal); I50.33 Acute on chronic diastolic (congestive) heart failure; J96.01 Acute respiratory failure with hypoxia; E03.9 Hypothyroidism, unspecified; F32.A Depression, unspecified; M06.9 Rheumatoid arthritis, unspecified; M88.9 Osteitis deformans of unspecified bone; J45.909 Unspecified asthma, uncomplicated; M79.7 Fibromyalgia; F90.9 Attention-deficit hyperactivity disorder, unspecified type; E66.01 Morbid (severe) obesity due to excess calories; E87.6 Hypokalemia; N17.9 Acute kidney failure, unspecified; Z68.41 Body mass index [BMI] 40.0-44.9, adult; Z87.891 Personal history of nicotine dependence
CPT/HCPCS: 36415; 71045; 71046; 71250; 76604; 80053; 80061; 81003; 82550; 83690; 83735; 83880; 84484; 85025; 85610; 85730; 87633; 93005; 94640; 96365; 99284; 99285; A9270; J1170; J1650; J1940; J7613

== ENCOUNTER 2024-02-24 20:28 | Emergency (ER) | payer OTHER, MEDICAID, SELFPAY ==
[2024-01-02 01:58] VITALS: BMI 43.9
[2024-02-24] VITALS (10 sets, daily range): BP systolic 156–187; BP diastolic 88–114; PULSE 70–86; RESP 17–99; TEMP 37.1; O2SAT 92–99; BMI 44.9
--- NOTE | 2024-02-24 20:31 | DI.RAD.S_ITS ---
PROCEDURE: XR CHEST 2V INDICATIONS: SOB TECHNIQUE: 2 views of the chest were acquired. COMPARISON: [facility], CT, CT CHEST WO CON, 01/03/2024, 18:39. [facility], CR, XR CHEST 1V, 01/08/2024, 6:06. [facility], CR, XR CHEST 1V, 01/01/2024, 22:06. [facility], CR, XR CHEST 2V, 01/03/2024, 16:10. [facility], CR, XR CHEST 2V, 10/22/2023, 5:16. FINDINGS: Surgical changes and devices: None. Lungs and pleura: Small left pleural effusion is seen with mild left basilar atelectasis. Questionable right lower lung zone opacity on frontal view that is not confirmed on lateral view and may be related to pulmonary vasculature. Mediastinum: Cardiac silhouette is mildly enlarged. Bones and chest wall: No suspicious bony abnormalities. Soft tissues appear unremarkable. IMPRESSION: 1. Small left pleural effusion with left basilar atelectasis. 2. Questionable right lower lung zone opacity seen on one view only, possibly related to mildly prominent pulmonary vasculature versus mild atelectasis, aspiration, or pneumonia. Approved by: Rusty Goff M.D. on 02/24/2024 at 20:52
--- NOTE | 2024-02-24 21:07 | ED.GENADULT ---
HPI - General Adult General Chief complaint: Shortness of Breath/Dyspnea Stated complaint: lung surgery, SOB, lungs hurt Time Seen by Provider: 02/24/24 20:30 Source: patient Mode of arrival: Ambulatory History of Present Illness HPI narrative: Patient is a 43-year-old female. Has been having issues with recurrent left-sided pleural effusions. Several weeks ago she underwent a repeat thoracentesis. Sounds like it was complicated by a pneumothorax. She stated that she had a procedure where they ?removed? fibrous tissue from the left lung. She states that they are unsure as to why she continues to get the recurrent effusions. Some question as to whether or not there is a issue with heart failure. She was on furosemide. She does have lower extremity swelling but this is baseline for her. She comes in the emergency department today because she feels like she was having short of breath and discomfort in the left side of her lung. No fevers. She has been using her albuterol nebulizer and MDI without much relief. She also has a history of asthma. She does have left-sided chest discomfort with deep breathing. Does not have a productive cough. Related Data Home Medications Medication Instructions Recorded Confirmed levothyroxine 150 mcg tablet 150 mcg PO QAM 09/01/23 01/02/24 Previous Rx's Medication Instructions Recorded albuterol sulfate 2.5 mg/3 mL 2.5 mg (3 mL) inhalation Q4-6H PRN 11/01/20 (0.083 %) solution for nebulization bronchospasm #90 mL metoprolol tartrate 25 mg tablet 25 mg PO BID #180 tabs 09/10/23 ibuprofen 200 mg tablet (Motrin IB) 400 mg (2 x 200 mg) PO Q8H PRN 09/18/23 pain (scale score 4-6) #30 tabs bupropion HCl 150 mg 24 hr tablet, 150 mg PO DAILY #90 tabs 10/14/23 extended release quetiapine 25 mg tablet 75 mg (3 x 25 mg) PO BEDTIME #90 11/07/23 tabs pregabalin 200 mg capsule See Rx Instructions .Route 12/11/23 .COMPLEX fibromyalgia M79.7 #270 caps amitriptyline 150 mg tablet 150 mg PO ONCE PM #90 tabs 12/30/23 duloxetine 60 mg capsule,delayed 60 mg PO DAILY #90 caps 01/19/24 release albuterol sulfate 90 mcg/actuation 2 puff inhalation Q4H PRN for 01/30/24 aerosol inhaler wheezing #6.7 grams empagliflozin 10 mg tablet 10 mg PO DAILY #90 tabs 02/03/24 (Jardiance) liraglutide 0.6 mg/0.1 mL (18 mg/3 See Rx Instructions SUBCUT 02/03/24 mL) subcutaneous pen injector .COMPLEX #6 mL losartan 50 mg tablet 50 mg PO DAILY #30 tabs 02/03/24 mometasone-formoterol HFA 200 2 puff inhalation BID #8.8 grams 02/03/24 mcg-5 mcg/actuation aerosol inhaler (Dulera) furosemide 20 mg tablet 20 mg PO DAILY #90 tabs 02/09/24 montelukast 10 mg tablet 10 mg PO BEDTIME #90 tabs 02/09/24 (Singulair) oxycodone 5 mg tablet 10 mg (2 x 5 mg) PO Q4H PRN pain 02/09/24 #240 tabs spironolactone 25 mg tablet 25 mg PO DAILY #90 tabs 02/09/24 tiotropium bromide 18 mcg capsule 1 cap inhalation DAILY #90 02/09/24 with inhalation device inhalations tizanidine 4 mg tablet 1 mg (1/4 x 4 mg) PO 3XD PRN for 02/09/24 muscle spasm #270 tabs pen needle, diabetic 32 gauge x #100 ea 02/24/24 1/4 (CareFine Pen Needle) prednisone 20 mg tablet 20 mg PO DAILY 5 days #5 tabs 02/24/24 Allergies Allergy/AdvReac Type Severity Reaction Status Date / Time Penicillins [PENICILLINS] Allergy Mild Rash Verified 01/01/24 22:09 fluconazole [From DIFLUCAN] AdvReac Intermediate vomiting Verified 01/01/24 22:09 and abd pain codeine [CODEINE] AdvReac Mild NAUSEA Verified 01/01/24 22:09 Review of Systems Review of Systems ROS Unobtainable: All systems reviewed & are unremarkable except as noted in HPI and below Patient History Medical History Hot flashes due to menopause Onychomycosis Chronic pain due to neoplasm Functional memory problem BMI 45.0-49.9, adult History of colon polyps Insomnia disorder, with non-sleep disorder mental comorbidity Bilateral chronic knee pain Acute pain of right knee UTI (urinary tract infection) Paget's disease of bone Obstructive sleep apnea on CPAP Lymphedema of arm Essential hypertension Major depressive disorder Abrasion, corneal Migraines Fibromyalgia (~05/2017) History of PCR DNA positive for HSV1 (~2014) Hypothyroidism (~2008) Rheumatoid arthritis Asthma Depression Irritable bowel syndrome Diverticular disease (~2015) Gestational diabetes mellitus (GDM) (10/27/14) Morbid obesity with body mass index (BMI) of 40.0 to 44.9 in adult (11/08/10) Surgical History Status post laparoscopy (01/19/16) Status post laparoscopic supracervical hysterectomy (10/23/15) Status post delivery (12/30/14) Status post tubal ligation (12/30/14) Status post surgery (07/07/12) Family History Grandmother Stroke Grandfather Heart disease Cancer Father Hypertension Mother Hypothyroidism (acquired) Social History marital status: household members: spouse and children lives independently: Yes Smoking Status: Former smoker alcohol intake: current substance use type: does not use Smoking Status: Former smoker tobacco type: cigarettes and vaping alcohol intake frequency: holidays/special occasions only Substance Use Type: marijuana Exam Initial Vital Signs Initial Vital Signs: Vital Signs Temperature 98.7 F 02/24/24 20:42 Pulse Rate 80 02/24/24 20:42 Respiratory Rate 99 H 02/24/24 20:42 Blood Pressure 187/114 H 02/24/24 20:42 Pulse Oximetry 99 02/24/24 20:42 Oxygen Delivery Method Room Air 02/24/24 20:42 Const General: cooperative and No ill appearing HENMT Head: normal to inspection Resp Effort & Inspection: no cough and tachypneic Auscultation: rhonchi and wheezes Cardio Rate: regular rate Rhythm: regular rhythm GI Inspection: normal to inspection and non-distended Skin General: no rashes or lesions noted Neuro General: patient alert, patient awake and moves all extremities Course Orders Ordered: ED Orders 02/24/24 20:31 XR chest 2V Stat 02/24/24 21:10 RT Consult Eval and Treat Now 02/24/24 21:14 Respiratory Panel (Film Array) Stat 02/24/24 21:22 Complete Blood Count AUTO DIFF Stat Comprehensive Metabolic Panel Stat Lipase Stat NT-proBNP (BNP-Adult 18+) Stat Troponin & CK Cardiac Panel Stat Discontinued Medications Albuterol (Albuterol 2.5 Mg/3 Ml Neb (Adult)) 5 mg INH NOW ONE Stop: 02/24/24 22:28 Last Admin: 02/24/24 22:33 Dose: 5 mg Documented By: DANIELLE Methylprednisolone (Methylprednisolone 125 Mg/2 Ml Vial) 125 mg IV NOW ONE Stop: 02/24/24 22:28 Last Admin: 02/24/24 22:32 Dose: 125 mg Documented By: MONICA Vital Signs Vital signs: Vital Signs - 8 hr 02/24/24 20:42 02/24/24 20:42 02/24/24 20:44 Temperature 98.7 F Pulse Rate 80 84 86 Respiratory Rate 99 H Blood Pressure 187/114 H Pulse Oximetry 99 98 99 Oxygen Delivery Method Room Air Oxygen Flow Rate Fraction of Inspired Oxygen 02/24/24 20:44 02/24/24 21:00 02/24/24 22:33 Temperature Pulse Rate 83 76 Respiratory Rate 20 Blood Pressure 177/103 H Pulse Oximetry 98 96 Oxygen Delivery Method Room Air Room Air Oxygen Flow Rate 0 Fraction of Inspired Oxygen 21 Medical Decision Making Medical Records Medical records reviewed: Yes I reviewed the patient's medical records. Lab Data Lab results reviewed: Yes I reviewed the patient's lab results. 02/24/24 21:22 02/24/24 21:22 Labs: Lab Results 02/24/24 02/24/24 Range/Units 21:14 21:22 WBC 9.4 (4.5-11.0) X10^3/uL RBC 4.58 (4.0-5.2) X10^6/uL Hgb 13.0 (12.0-16.0) g/dL Hct 39.8 (36-46) % MCV 86.8 (80-100) fL MCH 28.3 (26-34) PG MCHC 32.6 (30-36) % RDW 16.2 H (11.6-14.8) % Plt Count 273 (150-400) X10^3/uL Neut % (Auto) 66.0 (50-75) % Lymph % (Auto) 20.9 L (25-40) % [place] % (Auto) 6.4 (3-14) % Eos % (Auto) 6.1 H (2-4) % Baso % (Auto) 0.6 (0-2) % Neut # (Auto) 6200 (7641-9511) /uL Lymph # (Auto) 2000 (3024-7080) /uL [place] # (Auto) 600 (0-900) /uL Eos # (Auto) 600 H (0-450) /uL Baso # (Auto) 100 (0-100) /uL Sodium 136 L (137-145) mmol/L Potassium 4.2 (3.4-5.1) mmol/L Chloride 106 (98-107) mmol/L Carbon Dioxide 27 (22-32) mmol/L BUN 12 (7-17) mg/dL Creatinine 0.97 (0.52-1.04) mg/dL Estimated GFR > 60 (>60) mL/min BUN/Creatinine Ratio 12.4 (6-22) Glucose 85 (70-100) mg/dL Calcium 9.9 (8.4-10.2) mg/dL Total Bilirubin 0.3 (0.2-1.3) mg/dL AST 16 (14-36) IU/L ALT 12 (<35) IU/L Alkaline Phosphatase 95 (38-126) U/L Total Creatine Kinase 48 (30-135) U/L Troponin I < 0.012 (0.01-0.034) ng/mL NT-Pro-B Natriuret Pep 538 H (<125) pg/mL Total Protein 7.2 (6.3-8.2) g/dL Albumin 3.9 (3.5-5.0) g/dL Globulin 3.3 (1.7-4.1) g/dL Albumin/Globulin Ratio 1.2 (1.0-2.8) Lipase 109 (23-300) U/L Chlamy pneumoniae PCR Not detected (Not Detect) Adenovirus (PCR) Not detected (Not Detect) B. pertussis DNA (PCR) Not detected (Not Detect) B.parapertussis DNA PCR Not detected (Not Detecte) Coronavirus OC43 (PCR) Not detected (Not Detect) Coronavirus HKU1 (PCR) Not detected (Not Detect) Coronavirus 229E (PCR) Not detected (Not Detect) SARS-CoV-2 (PCR) Not detected (Not Detecte) Coronavirus NL63 (PCR) Not detected (Not Detect) Human Metapneumovir PCR Not detected (Not Detect) Influenza Type A (PCR) Not detected (Not Detect) Influenza Type B (PCR) Not detected (Not Detect) M. pneumoniae (PCR) Not detected (Not Detect) Parainfluenza 1 (PCR) Not detected (Not Detect) Parainfluenza 2 (PCR) Not detected (Not Detect) Parainfluenza 3 (PCR) Not detected (Not Detect) Parainfluenza 4 (PCR) Not detected (Not Detect) RSV (PCR) Not detected (Not Detect) Entero/Rhino (PCR) Not detected (Not Detect) Imaging Data Chest x-ray: Radiologist's Impression: PROCEDURE: XR CHEST 2V INDICATIONS: SOB TECHNIQUE: 2 views of the chest were acquired. COMPARISON: [facility], CT, CT CHEST WO CON, 01/03/2024, 18:39. [facility], CR, XR CHEST 1V, 01/08/2024, 6:06. [facility], CR, XR CHEST 1V, 01/01/2024, 22:06. [facility], CR, XR CHEST 2V, 01/03/2024, 16:10. [facility], CR, XR CHEST 2V, 10/22/2023, 5:16. FINDINGS: Surgical changes and devices: None. Lungs and pleura: Small left pleural effusion is seen with mild left basilar atelectasis. Questionable right lower lung zone opacity on frontal view that is not confirmed on lateral view and may be related to pulmonary vasculature. Mediastinum: Cardiac silhouette is mildly enlarged. Bones and chest wall: No suspicious bony abnormalities. Soft tissues appear unremarkable. IMPRESSION: 1. Small left pleural effusion with left basilar atelectasis. 2. Questionable right lower lung zone opacity seen on one view only, possibly related to mildly prominent pulmonary vasculature versus mild atelectasis, aspiration, or pneumonia. MDM Narrative Medical decision making narrative: Her presenting symptoms today are not consistent with pneumonia. Her chest x-ray shows a left-sided pleural effusion but no pneumothorax. The pleural effusion is actually less than what it has been in the past and I suspect that this is not the primary cause of her presenting symptoms today. Her respiratory panel is negative. I have no indication to do any antibiotics. Patient was clinically not in heart failure. Her BNP is only just slightly above 500 which seems to be baseline for her. She was no change in her lower extremity edema. She did receive a breathing treatment which she states did seem to help her symptoms somewhat. I suspect that this is more related to her asthma. She was given a dose of steroids. Will put her on steroids for the next couple days and recommended that she contact her primary doctor and her lockstitch back maker for follow-up. She was given return precautions. She expressed understanding and agreement. Discharge Plan Departure Patient Disposition: Home Clinical Impression: Asthma, Shortness of breath Instructions: How to Manage Shortness of Breath Activity Restrictions/Additional Instructions: Continue to take all of your medications as directed. A prescription for steroids was sent to [place] pharmacy per your request. Recommend that you contact your primary doctor and also your lockstitch back maker for a follow-up. Return to the emergency department for new or worsening symptoms. Prescriptions: New prednisone 20 mg tablet 20 mg PO DAILY 5 Days Qty: 5 0RF No Action albuterol sulfate 2.5 mg /3 mL (0.083 %) solution for nebulization 2.5 mg INHALATION Q4-6H PRN (Reason: bronchospasm) Qty: 90 3RF metoprolol tartrate 25 mg tablet 25 mg PO BID Qty: 180 1RF Patient Comments: pt reports taking med at bedtime only 25 mg bupropion HCl 150 mg tablet extended release 24 hr 150 mg PO DAILY Qty: 90 1RF Patient Comments: Takes at bedtime Rx Instructions: TAKE 1 TABLET (150 MG) ORALLY DAILY pregabalin 200 mg capsule See Rx Instructions .ROUTE .COMPLEX Qty: 270 3RF Rx Instructions: Take 1 capsule by mouth 3 times daily amitriptyline 150 mg tablet 150 mg PO ONCE PM Qty: 90 1RF duloxetine 60 mg capsule,delayed release(DR/EC) 60 mg PO DAILY Qty: 90 0RF albuterol sulfate 90 mcg/actuation HFA aerosol inhaler 2 puff inhalation Q4H PRN (Reason: for wheezing) Qty: 6.7 4RF Jardiance 10 mg tablet 10 mg PO DAILY Qty: 90 0RF liraglutide 0.6 mg/0.1 mL (18 mg/3 mL) pen injector See Rx Instructions SUBCUT .COMPLEX Qty: 6 1RF Rx Instructions: inject 0.6mg subcutaneously once daily x 7 days; then 1.2mg daily, not to exceed 1.8mg/day SUBCUT Dulera 200-5 mcg/actuation HFA aerosol inhaler 2 puff inhalation BID Qty: 8.8 0RF losartan 50 mg tablet 50 mg PO DAILY Qty: 30 0RF (DME) pen needle, diabetic [CareFine Pen Needle] 32 gauge x 1/4 needle See Rx Instructions .Route Qty: 100 0RF Rx Instructions: As directed to injection for liraglutide quetiapine 25 mg tablet 75 mg PO BEDTIME Qty: 90 11RF Rx Instructions: TAKE 3 TABLETS BY MOUTH EVERY NIGHT AT BEDTIME. DUE FOR APPOINTMENT furosemide 20 mg tablet 20 mg PO DAILY Qty: 90 3RF spironolactone 25 mg tablet 25 mg PO DAILY Qty: 90 3RF montelukast [Singulair] 10 mg tablet 10 mg PO BEDTIME Qty: 90 3RF tiotropium bromide 18 mcg capsule, w/inhalation device 1 cap inhalation DAILY Qty: 90 3RF Rx Instructions: puncture 1 cap using device; one dose = 2 inhalations oxycodone 5 mg tablet 10 mg PO Q4H PRN (Reason: pain) Qty: 240 0RF Rx Instructions: EXEMPT tizanidine 4 mg tablet 1 mg PO 3XD PRN (Reason: for muscle spasm) Qty: 270 1RF ibuprofen [Motrin IB] 200 mg tablet 400 mg PO Q8H PRN (Reason: pain (scale score 4-6)) Qty: 30 0RF levothyroxine 150 mcg tablet 150 mcg PO QAM Patient Comments: Takes at bedtime Referrals: Eduard Arreguin DO [Primary Care Provider] - Stand Alone Forms: Patient Portal/API
[2024-02-24 21:30] LABS: Add Manual Diff / Slide Review NO; Basophils Absolute Auto 100 /uL (0-100); Basophils Percent Auto 0.6 % (0-2); Eosinophils Absolute Auto 600 /uL (0-450); Eosinophils Percent Auto 6.1 % (2-4); Hematocrit 39.8 % (36-46); Lymphocytes Absolute Auto 2000 /uL (1100-4500); Lymphocytes Percent Auto 20.9 % (25-40); Mean Corpuscular HGB Conc 32.6 % (30-36); Mean Corpuscular Hemoglobin 28.3 PG (26-34); Mean Corpuscular Volume 86.8 fL (80-100); Monocytes Absolute Auto 600 /uL (0-900); Monocytes Percent Auto 6.4 % (3-14); Neutrophils Absolute Auto 6200 /uL (1500-7000); Platelet Count 273 X10^3/uL (150-400); Red Blood Cell Count 4.58 X10^6/uL (4.0-5.2); Red Cell Distribution Width 16.2 % (11.6-14.8); White Blood Cell Count 9.4 X10^3/uL (4.5-11.0)
[2024-02-24 21:40] LABS: Alanine Aminotransferase 12 IU/L (<35); Albumin 3.9 g/dL (3.5-5.0); Albumin Globulin Ratio 1.2 (1.0-2.8); Alkaline Phosphatase 95 U/L (38-126); Aspartate Aminotransferase 16 IU/L (14-36); BUN Creatinine Ratio 12.4 (6-22); Bilirubin Total 0.3 mg/dL (0.2-1.3); Blood Urea Nitrogen 12 mg/dL (7-17); Calcium 9.9 mg/dL (8.4-10.2); Carbon Dioxide 27 mmol/L (22-32); Chloride 106 mmol/L (98-107); Creatine Kinase 48 U/L (30-135); Estimated Glomerular Filt Rate > 60 mL/min (>60); Globulin 3.3 g/dL (1.7-4.1); Glucose 85 mg/dL (70-100); HEMOLYSIS < 15 (0-50); Lipase 109 U/L (23-300); Potassium 4.2 mmol/L (3.4-5.1); Sodium 136 mmol/L (137-145); Total Protein 7.2 g/dL (6.3-8.2)
[2024-02-24 21:52] LABS: NT-proBNP (BNP-Adult 18+) 538 pg/mL (<125); Troponin I < 0.012 ng/mL (0.01-0.034)
[2024-02-24 22:07] LABS: Adenovirus Not Detected (Not Detect); B. parapertussis Not Detected (Not Detecte); Bordetella pertussis Not Detected (Not Detect); Chlamydophila pneumoniae Not Detected (Not Detect); Coronavirus 229E Not Detected (Not Detect); Coronavirus HKU1 Not Detected (Not Detect); Coronavirus NL 63 Not Detected (Not Detect); Coronavirus OC43 Not Detected (Not Detect); Human Metapneumovirus Not Detected (Not Detect); Human Rhinovirus/Enterovirus Not Detected (Not Detect); Influenza A Not Detected (Not Detect); Influenza B Not Detected (Not Detect); Mycoplasma pneumoniae Not Detected (Not Detect); Parainfluenza Virus 1 Not Detected (Not Detect); Parainfluenza Virus 2 Not Detected (Not Detect); Parainfluenza Virus 3 Not Detected (Not Detect); Parainfluenza Virus 4 Not Detected (Not Detect); Respiratory Syncytial Virus Not Detected (Not Detect); SARS- CoV-2 Not Detected (Not Detecte)
[2024-02-24] MEDS: methylPREDNISolone 125 MG/2 ML VIAL IV (22:32)
[2024-02-24] MEDS: ALBUTEROL 2.5 MG/3 ML NEB (ADULT) 5 MG INH (22:33)
== END 2024-02-24 23:29 | disposition home or self-care (01) ==
PROVIDERS: Emergency Provider Emergency Medicine; PCP Family Medicine
DX: J45.909 Unspecified asthma, uncomplicated (principal); R06.02 Shortness of breath; Z79.899 Other long term (current) drug therapy; J90 Pleural effusion, not elsewhere classified; Z11.52 Encounter for screening for COVID-19
CPT/HCPCS: 36415; 71046; 80053; 82550; 83690; 83880; 84484; 85025; 87633; 94640; 96374; 99284; J2919; J7613

== ENCOUNTER → 2024-06-17 13:51 | Outpatient (CLI) | payer OTHER, SELFPAY ==
[2024-02-25 11:43] VITALS: BMI 43.9
--- NOTE | 2024-06-17 13:53 | DI.RAD.S_ITS ---
PROCEDURE: XR CHEST 2V INDICATIONS: DYSPNEA TECHNIQUE: 2 views of the chest were acquired. COMPARISON: [facility], CR, XR CHEST 1V, 01/01/2024, 22:06. [facility], CR, XR CHEST 2V, 02/24/2024, 20:29. FINDINGS: Heart, mediastinum and pulmonary vascular: Heart is normal in size and configuration. Mediastinum is unremarkable. Pulmonary vascular is normal. Lungs: There is mild hazy airspace disease in both mid lower lungs. A nodular density in the paramediastinal left upper lobe region likely represents chondral calcification inferior to the left 1st rib . This has been seen on previous exam. Pleural spaces: Normal-no effusions or pneumothorax. IMPRESSION: Mild hazy airspace disease both mid and lower lungs suggesting developing infiltrate or aspiration. Dictated by: Adiel Singh M.D. on 06/18/2024 at 10:10 Approved by: Adiel Singh M.D. on 06/18/2024 at 10:13
== END ==
PROVIDERS: PCP Family Medicine; Referring Provider Internal Medicine Cardiovascular Disease; Visit Provider Internal Medicine Cardiovascular Disease
DX: I50.32 Chronic diastolic (congestive) heart failure (principal); R06.09 Other forms of dyspnea
CPT/HCPCS: 71046

== ENCOUNTER → 2024-07-02 16:46 | Outpatient (CLI) | payer OTHER, SELFPAY ==
[2024-02-25 11:43] VITALS: BMI 43.9
[2024-07-02 17:37] LABS: Add Manual Diff / Slide Review NO; Basophils Absolute Auto 100 /uL (0-100); Basophils Percent Auto 0.5 % (0-2); Eosinophils Absolute Auto 1000 /uL (0-450); Eosinophils Percent Auto 8.9 % (2-4); Hematocrit 43.7 % (36-46); Hemoglobin 14.4 g/dL (12.0-16.0); Lymphocytes Absolute Auto 2600 /uL (1100-4500); Lymphocytes Percent Auto 22.7 % (25-40); Mean Corpuscular Hemoglobin 28.7 PG (26-34); Mean Corpuscular Volume 86.9 fL (80-100); Monocytes Absolute Auto 800 /uL (0-900); Monocytes Percent Auto 7.5 % (3-14); Neutrophils Absolute Auto 6900 /uL (1500-7000); Neutrophils Percent Auto 60.4 % (50-75); Platelet Count 349 X10^3/uL (150-400); Red Blood Cell Count 5.02 X10^6/uL (4.0-5.2); White Blood Cell Count 11.4 X10^3/uL (4.5-11.0)
[2024-07-02 18:07] LABS: Alanine Aminotransferase 21 IU/L (<35); Albumin 4.6 g/dL (3.5-5.0); Albumin Globulin Ratio 1.5 (1.0-2.8); Alkaline Phosphatase 104 U/L (38-126); Aspartate Aminotransferase 28 IU/L (14-36); BUN Creatinine Ratio 14.5 (6-22); Bilirubin Total 0.4 mg/dL (0.2-1.3); Blood Urea Nitrogen 24 mg/dL (7-17); Calcium 9.7 mg/dL (8.4-10.2); Carbon Dioxide 37 mmol/L (22-32); Chloride 92 mmol/L (98-107); Estimated Glomerular Filt Rate 39 mL/min (>60); Glucose 71 mg/dL (70-100); HEMOLYSIS < 15 (0-50); Potassium 4.2 mmol/L (3.4-5.1); Sodium 139 mmol/L (137-145); Total Protein 7.6 g/dL (6.3-8.2)
[2024-07-02 18:20] LABS: Creatinine Urine Random 267.96 mg/dL
[2024-07-02 18:25] LABS: Microalbumin Urine Random 2.1 mg/dL (0-1.6)
== END ==
PROVIDERS: PCP Family Medicine; Referring Provider Family Medicine; Visit Provider Family Medicine
DX: I50.30 Unspecified diastolic (congestive) heart failure (principal); E66.01 Morbid (severe) obesity due to excess calories; Z68.41 Body mass index [BMI] 40.0-44.9, adult; Z68.42 Body mass index [BMI] 45.0-49.9, adult
CPT/HCPCS: 80053; 82043; 82570; 83036; 85025

== ENCOUNTER → 2024-07-21 14:48 | Outpatient (CLI) | payer OTHER, SELFPAY ==
[2024-02-25 11:43] VITALS: BMI 43.9
[2024-07-21 15:43] LABS: Alanine Aminotransferase 20 IU/L (<35); Albumin 4.5 g/dL (3.5-5.0); Albumin Globulin Ratio 1.5 (1.0-2.8); Alkaline Phosphatase 115 U/L (38-126); Aspartate Aminotransferase 26 IU/L (14-36); BUN Creatinine Ratio 18.1 (6-22); Bilirubin Total 0.5 mg/dL (0.2-1.3); Blood Urea Nitrogen 23 mg/dL (7-17); Calcium 9.6 mg/dL (8.4-10.2); Carbon Dioxide 28 mmol/L (22-32); Chloride 103 mmol/L (98-107); Estimated Glomerular Filt Rate 53 mL/min (>60); Glucose 91 mg/dL (70-100); HEMOLYSIS 38 (0-50); Potassium 4.1 mmol/L (3.4-5.1); Sodium 140 mmol/L (137-145); Total Protein 7.5 g/dL (6.3-8.2)
== END ==
PROVIDERS: PCP Family Medicine; Referring Provider Family Medicine; Visit Provider Family Medicine
DX: I50.30 Unspecified diastolic (congestive) heart failure (principal); I95.1 Orthostatic hypotension
CPT/HCPCS: 36415; 80053

== ENCOUNTER → 2024-08-31 11:16 | Outpatient (CLI) | payer OTHER, SELFPAY ==
[2024-02-25 11:43] VITALS: BMI 43.9
[2024-08-31 12:48] LABS: Alanine Aminotransferase 20 IU/L (<35); Albumin 3.9 g/dL (3.5-5.0); Albumin Globulin Ratio 1.6 (1.0-2.8); Alkaline Phosphatase 91 U/L (38-126); Aspartate Aminotransferase 23 IU/L (14-36); BUN Creatinine Ratio 12.9 (6-22); Bilirubin Total 0.4 mg/dL (0.2-1.3); Blood Urea Nitrogen 16 mg/dL (7-17); Calcium 9.3 mg/dL (8.4-10.2); Carbon Dioxide 30 mmol/L (22-32); Chloride 100 mmol/L (98-107); Estimated Glomerular Filt Rate 55 mL/min (>60); Globulin 2.5 g/dL (1.7-4.1); Glucose 100 mg/dL (70-99); HEMOLYSIS < 15 (0-50); Potassium 4.6 mmol/L (3.4-5.1); Sodium 138 mmol/L (137-145); Total Protein 6.4 g/dL (6.3-8.2)
[2024-08-31 12:53] LABS: Rheumatoid Factor < 8.6 IU/mL (<12.0)
[2024-09-02 12:08] LABS: CCP Antibodies IgG/IgA 10 units (0-19)
== END ==
PROVIDERS: PCP Family Medicine; Referring Provider Family Medicine; Visit Provider Family Medicine
DX: R11.2 Nausea with vomiting, unspecified (principal); I95.1 Orthostatic hypotension; I50.30 Unspecified diastolic (congestive) heart failure; M25.50 Pain in unspecified joint; M06.09 Rheumatoid arthritis without rheumatoid factor, multiple sites; Z68.42 Body mass index [BMI] 45.0-49.9, adult
CPT/HCPCS: 36415; 80053; 83036; 86200; 86430

== ENCOUNTER 2025-04-27 00:06 | Inpatient (IN) | payer OTHER, SELFPAY ==
[2024-02-25 11:43] VITALS: BMI 43.9
[2025-04-27] VITALS (19 sets, daily range): BP systolic 120–146; BP diastolic 58–87; PULSE 86–111; RESP 14–26; TEMP 36.6–37.6; O2SAT 77–98; BMI 46.8
--- NOTE | 2025-04-27 | DI.RAD.S_ITS ---
PROCEDURE: XR CHEST 1V INDICATIONS: ng tube placement TECHNIQUE: One view of the chest was acquired. COMPARISON: [facility], CT, CT CHEST ABD PEL W CON, 04/27/2025, 1:49. [facility], CR, XR CHEST 2V, 06/17/2024, 13:49. [facility], CR, XR CHEST 2V, 02/24/2024, 20:29. FINDINGS: Surgical changes and devices: Enteric tube coursing into the stomach. Lungs and pleura: No consolidation identified. Opacity at the left lower lobe seen on recent CT is not well appreciated. No pleural effusions or pneumothorax. Mediastinum: Mediastinal contours appear unchanged. Heart size appears enlarged. Bones and chest wall: No suspicious bony lesions. Overlying soft tissues appear unremarkable. IMPRESSION: Enteric tube coursing into the stomach. Dictated by: Ede Paulson M.D. on 04/27/2025 at 9:06 Approved by: Ede Paulson M.D. on 04/27/2025 at 9:07
--- OUTSIDE RECORDS SUMMARY | 2025-04-27 00:09 | XMS_ITS | Encounter Summary ---
Author Organization [facility] [place] Address [address] [place] [address] Care Team Providers Care Ordnance Artificer Name Role Phone Unavailable Primary Care Provider Unavailabl e Reason for Visit * Reason Onset Date Comments Encounter Open in Error 03/17/2025 Encounter Details Date Type Department Care Team (Late st Contact Info) Description 03/17/2025 Telephone Medicine Primary Care at [address], [address] [place] [address] Kamari Samira Daily Lang, [address] [place] [address] [address] [place] [id number] Encounter Open in Error Social History Tobacco Use Types Packs/Day Years Used Date Smoking Tobacco: Never Assessed Comments Unknown Sex and Gender Information Value Date Recorded Sex Assigned at Not on file Legal Sex Female 6:53 AM PST Gender Identity Not on file Sexual Orientation Not on file documented as of this encounter Miscellaneous Notes * Telephone Encounter - Kalin Cabrales - 03/17/2025 4:47 PM PST Error documented in this encounter Plan of Treatment Not on file documented as of this encounter Visit Diagnoses Not on filedocumented in this encounter
--- NOTE | 2025-04-27 00:24 | EKG_ITS ---
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
[2025-04-27] MEDS: ONDANSETRON 4 MG/2 ML INJ IV (00:42)
[2025-04-27] MEDS: SODIUM CHLORIDE 0.9% 1,000 ML 1000 ML IV (00:50)
[2025-04-27 00:59] LABS: Add Manual Diff / Slide Review NO; Hematocrit 41.9 % (36-46); Hemoglobin 13.8 g/dL (12.0-16.0); Lymphocytes Absolute Auto 1100 /uL (1100-4500); Mean Corpuscular HGB Conc 32.9 % (30-36); Mean Corpuscular Hemoglobin 28.0 PG (26-34); Mean Corpuscular Volume 85.1 fL (80-100); Platelet Count 285 X10^3/uL (150-400)
[2025-04-27 01:05] LABS: Alanine Aminotransferase 34 IU/L (<35); Albumin 3.9 g/dL (3.5-5.0); Albumin Globulin Ratio 1.2 (1.0-2.8); Alkaline Phosphatase 133 U/L (38-126); Blood Urea Nitrogen 19 mg/dL (7-17); Calcium 8.6 mg/dL (8.4-10.2); Carbon Dioxide 34 mmol/L (22-32); Chloride 95 mmol/L (98-107); Estimated Glomerular Filt Rate > 60 mL/min (>60); Globulin 3.3 g/dL (1.7-4.1); Glucose 124 mg/dL (70-99); HEMOLYSIS < 15 (0-50); Lipase 35 U/L (23-300); Sodium 137 mmol/L (137-145); Total Protein 7.2 g/dL (6.3-8.2)
[2025-04-27 01:15] LABS: Potassium 2.7 mmol/L (3.4-5.1)
--- NOTE | 2025-04-27 01:27 | ED_ITS ---
HPI - Nausea/Vomiting/Diarrhea General Chief complaint: Nausea/Vomiting/Diarrhea Stated complaint: Vomiting Blood, Abdominal Pain, Fever Time Seen by Provider: 04/27/25 00:32 Source: patient Mode of arrival: Ambulatory History of Present Illness HPI Narrative: Patient is a 44-year-old female who presents with nausea, vomiting, hematemesis, abdominal pain, and diarrhea for the past few days. Past medical history significant for appendectomy and multiple , hypothyroidism hypertension asthma and irritable bowel syndrome. Patient states that her symptoms have progressively worsened which prompted her to present to the ER. Patient feels warm, no chills. No chest pain, has dyspnea, no diaphoresis. Related Data Previous Rx's ?Medication ?Instructions ?Recorded metoprolol tartrate 25 mg tablet 25 mg PO BID #180 tab s 09/10/23 ibuprofen 200 mg tablet (Motrin IB) 400 mg (2 x 200 mg ) PO Q8H PRN 09/18/23 pain (scale score 4-6) #30 tabs spironolactone 25 mg tablet 25 mg PO DAILY #90 tabs duloxetine 60 mg capsule,delayed 60 mg PO DAILY #90 ca ps 11/02/24 release pregabalin 200 mg capsule See Rx Instructions .Route 0 11/19/24 .COMPLEX fibromyalgia M79.7 #270 caps albuterol sulfate 90 mcg/actuation 2 puff inhalation Q 4H PRN for 11/25/24 aerosol inhaler wheezing #8.5 grams empagliflozin 10 mg tablet 10 mg PO DAILY #90 tabs (Jardiance) levothyroxine 150 mcg tablet 150 mcg PO QAM #90 tabs 0 11/25/24 liraglutide 0.6 mg/0.1 mL (18 mg/3 See Rx Instructions SUBCUT 11/25/24 mL) subcutaneous pen injector .COMPLEX #6 mL ondansetron 4 mg disintegrating 4 mg PO Q8H PRN nausea and 11/25/24 tablet vomiting #30 tabs pen needle, diabetic 32 gauge x #100 ea 11/25/24 tizanidine 4 mg tablet 4 mg PO BEDTIME PRN muscle 0 11/25/24 spasticity #90 tabs furosemide 80 mg tablet 320 mg (4 x 80 mg) PO DAILY #360 11/30/24 tabs potassium chloride 20 mEq/15 mL 10 meq (7.5 mL) PO ROHITH LY #1,200 mL 11/30/24 oral liquid quetiapine 25 mg tablet 75 mg (3 x 25 mg) PO ONCE PM #90 12/07/24 tabs albuterol sulfate 2.5 mg/3 mL 2.5 mg (3 mL) inhalation Q4-6H PRN 01/14/25 (0.083 %) solution for nebulization bronchospasm #90 m L liraglutide 0.6 mg/0.1 mL (18 mg/3 1.8 mg (0.3 mL) SUB CUT Q24H #9 mL 03/16/25 mL) subcutaneous pen injector amitriptyline 150 mg tablet 150 mg PO ONCE PM #90 tabs 04/11/25 bupropion HCl 150 mg 24 hr tablet, 150 mg PO DAILY #90 tabs 04/21/25 extended release oxycodone 10 mg tablet See Rx Instructions .Route 1 06/23/24 .COMPLEX #150 tabs Allergies Allergy/AdvReac Type Severity Reaction Status Date / Time Penicillins (PENICILLINS) Allergy Mild Rash Verified 04/27/25 00:15 fluconazole (From DIFLUCAN) AdvReac Intermediate vomiting Verified 04/27/25 00:15 and abd pain codeine (CODEINE) AdvReac Mild NAUSEA Verified 04/27/25 00:15 Review of Systems Review of Systems Narrative: See HPI. Patient History Medical History (Updated 04/27/25 @ 08:52 by Brii Frazier MD) Dizziness Arthralgia Weight gain, abnormal Orthostatic hypotension Nausea and vomiting in adult patient Hot flashes due to menopause Onychomycosis Chronic pain due to neoplasm Functional memory problem BMI 45.0-49.9, adult History of colon polyps Insomnia disorder, with non-sleep disorder mental comorbidity Bilateral chronic knee pain Acute pain of right knee UTI (urinary tract infection) Paget's disease of bone Obstructive sleep apnea on CPAP Lymphedema of arm Essential hypertension Major depressive disorder Abrasion, corneal Migraines Fibromyalgia (~05/2017) History of PCR DNA positive for HSV1 (~2014) Hypothyroidism (~2008) Rheumatoid arthritis Asthma Depression Irritable bowel syndrome Diverticular disease (~2015) Gestational diabetes mellitus (GDM) (10/27/14) Surgical History Status post laparoscopy (01/19/16) Status post laparoscopic supracervical hysterectomy (10/23/15) Status post delivery (12/30/14) Status post tubal ligation (12/30/14) Status post surgery (07/07/12) Family History Grandmother Stroke Grandfather Heart disease Cancer Father Hypertension Mother Hypothyroidism (acquired) Social History marital status: household members: spouse and children lives independently: Yes Smoking Status: Current every day smoker alcohol intake: current substance use type: does not use tobacco type: cigarettes and vaping alcohol intake frequency: holidays/special occasions only Exam Narrative Exam Narrative: Vitals: Febrile, tachycardic, tachypneic, desaturating to high 88s on RA. Gen: Well-developed, well-nourished, appears uncomfortable, emesis bag in hand. Card: Tachycardic, no murmurs rubs or gallops. Pulm: No increased work of breathing however patient was tachypneic on monitor. Clear breath sounds in all lung sánchez. Abd: Distended, diffusely tender, not peritonitic. Ext: No peripheral edema in bilateral lower extremity. Neuro: A&O x4. Cranial nerves grossly intact. Moving all 4 extremities bilaterally. Normal gait. Psych: Appropriate. Initial Vital Signs Initial Vital Signs: Vital Signs Temperature 99.7 F H 04/27/25 00:15 Pulse Rate 111 H 04/27/25 00:15 Respiratory Rate 20 04/27/25 00:15 Blood Pressure 122/73 04/27/25 00:15 Pulse Oximetry 93 04/27/25 00:15 Oxygen Delivery Method Room Air 04/27/25 00:15 Course Orders Ordered: Acetaminophen (Acetaminophen 325 Mg Tablet) 650 mg PO Q6H PRN PRN Reason: Fever/Mild Pain (1-3) Lactated Ringer's (Lactated Ringers) 1,000 mls @ 125 mls/hr IV CONT OTTONIEL Last Infusion: 04/27/25 08:19 Dose: Infused Documented By: Admin: 04/27/25 04:10 Dose: 125 mls/hr Documented By: SH Sodium Chloride (Normal Saline 0.9%) 1,000 mls @ 100 mls/hr IV CONT OTTONIEL Last Admin: 04/27/25 22:03 Dose: 100 mls/hr Documented By: Infusion: 04/27/25 20:20 Dose: Infused Documented By: Infusion: 04/27/25 10:54 Dose: 100 mls/hr Documented By: Admin: 04/27/25 10:19 Dose: 100 mls/hr Documented By: ANTONIA Piperacillin Sod/Tazobactam (Sod 3.375 gm/ Sodium Chloride) 100 mls @ 25 mls/hr IV Q8H [facility] Last Admin: 04/28/25 00:07 Dose: 25 mls/hr Documented By: Infusion: 04/27/25 21:16 Dose: Infused Documented By: Admin: 04/27/25 16:12 Dose: 25 mls/hr Documented By: Infusion: 04/27/25 12:52 Dose: Infused Documented By: Infusion: 04/27/25 10:54 Dose: 25 mls/hr Documented By: Admin: 04/27/25 08:42 Dose: 25 mls/hr Documented By: RB Morphine Sulfate (Morphine 4 Mg/Ml Inj) 3 mg IV Q2HR PRN PRN Reason: Pain, Severe (7-10) Last Admin: 04/28/25 00:14 Dose: 3 mg Documented By: Admin: 04/27/25 22:03 Dose: 3 mg Documented By: Admin: 04/27/25 18:19 Dose: 3 mg Documented By: Admin: 04/27/25 15:25 Dose: 3 mg Documented By: Admin: 04/27/25 12:31 Dose: 3 mg Documented By: Admin: 04/27/25 10:18 Dose: 3 mg Documented By: ANTONIA Naloxone HCl (Naloxone 0.4 Mg/Ml Vial) 0.2 mg IV Q2MIN PRN PRN Reason: Opiate Reversal Ondansetron HCl (Ondansetron 4 Mg/2 Ml Inj) 4 mg IV NOW PRN PRN Reason: Nausea And Vomiting Last Admin: 04/27/25 00:42 Dose: 4 mg Documented By: CLIFF Ondansetron HCl (Ondansetron 4 Mg Odt) 4 mg PO NOW PRN PRN Reason: Nausea And Vomiting Last Admin: 04/27/25 04:11 Dose: 4 mg Documented By: ELHAM Ondansetron HCl (Ondansetron 4 Mg/2 Ml Inj) 4 mg IV Q8HR PRN PRN Reason: Nausea And Vomiting Pantoprazole Sodium (Pantoprazole 40 Mg Vial) 40 mg IV DAILY [facility] Last Admin: 04/27/25 15:24 Dose: 40 mg Documented By: ESV Prochlorperazine (Prochlorperazine 10 Mg/2 Ml Vial) 10 mg IV Q6HR PRN PRN Reason: Nausea Discontinued Medications Sodium Chloride (Normal Saline 0.9%) 1,000 mls @ 1,000 mls/hr IV BOLUS ONE Stop: 04/27/25 01:43 Last Infusion: 04/27/25 02:20 Dose: Infused Documented By: Admin: 04/27/25 00:50 Dose: 1,000 mls/hr Documented By: CLIFF Potassium Phosphate 15 mmol/ (Sodium Chloride) 255 mls @ 63.75 mls/hr IV NOW ONE Stop: 04/27/25 01:25 Last Admin: 04/27/25 03:06 Dose: Not Given Documented By: CLIFF POTASSIUM CHLORIDE IN WATER (Potassium Cl 10 Meq/100 Ml Jenn) 10 meq in 100 mls @ 100 mls/hr IV Q1H OTTONIEL Stop: 04/27/25 03:29 Last Infusion: 04/27/25 04:00 Dose: Infused Documented By: Admin: 04/27/25 02:56 Dose: 100 mls/hr Documented By: Infusion: 04/27/25 02:34 Dose: Infused Documented By: Admin: 04/27/25 01:34 Dose: 100 mls/hr Documented By: CLIFF Piperacillin Sod/Tazobactam (Sod 4.5 gm/ Sodium Chloride) 100 mls @ 200 mls/hr IV NOW ONE Stop: 04/27/25 03:23 Last Infusion: 04/27/25 05:00 Dose: Infused Documented By: Admin: 04/27/25 04:09 Dose: 200 mls/hr Documented By: ELHAM POTASSIUM CHLORIDE IN WATER (Potassium Cl 10 Meq/100 Ml Jenn) 10 meq in 100 mls @ 100 mls/hr IV Q1H OTTONIEL Stop: 04/27/25 05:59 Last Admin: 04/27/25 08:15 Dose: Not Given Documented By: Infusion: 04/27/25 06:00 Dose: Infused Documented By: Admin: 04/27/25 04:10 Dose: 100 mls/hr Documented By: SH POTASSIUM CHLORIDE IN WATER (Potassium Cl 10 Meq/100 Ml Jenn) 10 meq in 100 mls @ 100 mls/hr IV Q1H OTTONIEL Stop: 04/27/25 08:59 Last Infusion: 04/27/25 10:01 Dose: Infused Documented By: Admin: 04/27/25 08:16 Dose: 100 mls/hr Documented By: RB POTASSIUM CHLORIDE IN WATER (Potassium Cl 10 Meq/100 Ml Jenn) 10 meq in 100 mls @ 100 mls/hr IV Q1H OTTONIEL Stop: 04/27/25 17:29 Last Infusion: 04/27/25 19:02 Dose: Infused Documented By: Admin: 04/27/25 17:45 Dose: 100 mls/hr Documented By: Infusion: 04/27/25 17:45 Dose: Infused Documented By: Admin: 04/27/25 17:16 Dose: 100 mls/hr Documented By: Infusion: 04/27/25 17:09 Dose: Infused Documented By: Admin: 04/27/25 16:09 Dose: 100 mls/hr Documented By: Infusion: 04/27/25 15:30 Dose: Infused Documented By: Admin: 04/27/25 14:30 Dose: 100 mls/hr Documented By: ESV Magnesium Sulfate (Magnesium Sulfate) 2 gm in 50 mls @ 25 mls/hr IV NOW ONE Stop: 04/27/25 18:44 Last Infusion: 04/27/25 19:54 Dose: Infused Documented By: ESV Co-signed By: EV Admin: 04/27/25 17:21 Dose: 25 mls/hr Documented By: ESV Co-signed By: GERONIMO Lidocaine HCl (Lidocaine 2% (Glydo) 6 Ml Gel) 6 ml TOP NOW ONE Stop: 04/27/25 08:23 Last Admin: 04/27/25 08:25 Dose: 6 ml Documented By: RB Vital Signs Vital signs: Vital Signs - 8 hr 04/27/25 00:15 04/27/25 01:20 04/27/25 01:21 Temperature 99.7 F H Pulse Rate 111 H 106 H 105 H Respiratory Rate 20 Blood Pressure 122/73 Pulse Oximetry 93 77 L 91 Oxygen Delivery Method Room Air Nasal Cannula Oxygen Flow Rate 2 04/27/25 01:21 04/27/25 01:30 04/27/25 01:30 Temperature Pulse Rate 102 H Respiratory Rate 15 Blood Pressure 137/85 126/66 Pulse Oximetry 87 L Oxygen Delivery Method Oxygen Flow Rate 04/27/25 01:47 04/27/25 02:07 04/27/25 02:30 Temperature Pulse Rate 104 H 96 H Respiratory Rate 14 Blood Pressure Pulse Oximetry 88 L 91 Oxygen Delivery Method Nasal Cannula Oxygen Flow Rate 2 04/27/25 03:00 04/27/25 03:30 Temperature Pulse Rate 96 H 95 H Respiratory Rate 15 Blood Pressure Pulse Oximetry 91 94 Oxygen Delivery Method Oxygen Flow Rate MDM - Nausea/Vomiting/Diarrhea Lab Data 04/27/25 11:18 04/27/25 11:18 Labs: Lab Results 04/27/25 04/27/25 04/27/25 Range/Units 00:38 03:51 04:00 WBC 11.7 H (4.5-11.0) X10^3/uL RBC 4.92 (4.0-5.2) X10^6/uL Hgb 13.8 (12.0-16.0) g/dL Hct 41.9 (36-46) % MCV 85.1 (80-100) fL MCH 28.0 (26-34) PG MCHC 32.9 (30-36) % RDW 15.7 H (11.6-14.8) % Plt Count 285 (150-400) X10^3/uL Neut % (Auto) 77.8 H (50-75) % Lymph % (Auto) 9.7 L (25-40) % [place] % (Auto) 9.6 (3-14) % Eos % (Auto) 2.6 (2-4) % Baso % (Auto) 0.3 (0-2) % Neut # (Auto) 9100 H (5456-2105) /uL Lymph # (Auto) 1100 (2891-9767) /uL [place] # (Auto) 1100 H (0-900) /uL Eos # (Auto) 300 (0-450) /uL Baso # (Auto) 0 (0-100) /uL Sodium 137 (137-145) mmol/L Potassium 2.7 L* (3.4-5.1) mmol/L Chloride 95 L (98-107) mmol/L Carbon Dioxide 34 H (22-32) mmol/L BUN 19 H (7-17) mg/dL Creatinine 1.04 (0.52-1.04) mg/dL Estimated GFR > 60 (>60) mL/min BUN/Creatinine Ratio 18.3 (6-22) Glucose 124 H (70-99) mg/dL Lactate 0.6 L (0.7-2.1) mmol/L Calcium 8.6 (8.4-10.2) mg/dL Phosphorus 3.1 (2.5-4.5) mg/dL Magnesium 1.6 (1.6-2.3) mg/dL Total Bilirubin 0.4 (0.2-1.3) mg/dL AST 46 H (14-36) IU/L ALT 34 (<35) IU/L Alkaline Phosphatase 133 H (38-126) U/L Total Protein 7.2 (6.3-8.2) g/dL Albumin 3.9 (3.5-5.0) g/dL Globulin 3.3 (1.7-4.1) g/dL Albumin/Globulin Ratio 1.2 (1.0-2.8) Lipase 35 (23-300) U/L Procalcitonin 0.214 (<0.5) ng/mL Urine Color Yellow Urine Appearance Sl cloudy Urine pH 5.5 (4.5-8.0) Ur Specific [place] <=1.005 (1.000-1.035) Urine Protein Negative (Negative) Urine Glucose (UA) 2+ H (Negative) g/dL Urine Ketones Negative (NEGATIVE) Urine Occult Blood Trace-intact (Negative) Urine Nitrate Negative (Negative) Urine Bilirubin Negative (NEGATIVE) Urine Urobilinogen 0.2 (0.2) E.U./dL Ur Leukocyte Esterase Negative (NEGATIVE) Urine RBC 0-1/hpf (0-5/HPF) Urine WBC 5-10/hpf H (0-5/HPF) Ur Squamous Epith Cells 10-30 /hpf H D (0-5/HPF) Urine Bacteria Many (>30) H (None) Ur Culture Indicated? Specimen cultured Vol Urine Centrifuged 10ml (spun) Urine Dip Bedside Urine Glucose 1000 mg/dl Bedside Urine Bilirubin - Negative Bedside Urine Ketone - Negative Urine Specific [place] 1.005 Bedside Urine Occult Blood +/- Bedside Urine pH 6.0 Bedside Urine Protein - Negative Bedside Urine Urobilinogen - Negative Bedside Urine Nitrite - Negative Bedside Urine Leukocytes - Negative Esterase Imaging Data CT scan - abdomen/pelvis: Radiologist's Impression: PROCEDURE: CT CHEST ABD PEL W CON INDICATIONS: hypoxic, hematemasis, n/v/d, abd pain TECHNIQUE: After the administration of intravenous contrast, 5 mm thick sections acquired from the lung apices to the symphysis. 5 mm coronal and sagittal reformats were performed, with additional 7 mm MIP reformats through the lungs. For radiation dose reduction, the following was used: automated exposure control, adjustment of mA and/or kV according to patient size. COMPARISON: [facility], CT, CT CHEST WO CON, 01/03/2024, 18:39. [facility], CR, XR CHEST 1V, 04/27/2025, 8:34. [facility], CT, CT CHEST ABD PEL W CON, 10/22/2023, 6:44. FINDINGS: Image quality: Excellent. CHEST: Lower Neck: No enlarged lymph nodes. Thyroid: No thyroid nodules which require sonographic follow up, per consensus guidelines. Axillae: No enlarged lymph nodes. Chest Wall: Unremarkable. Lungs and Pleura: No pneumothorax. Resolved left pleural effusion. Curvilinear and consolidative opacity at the left lower lobe. Mild ground-glass opacity in the lingula and right middle lobe. Left fissure pulmonary nodule measuring 0.5 cm, (5/158). The central airways are clear. Heart: Heart size is normal. No pericardial effusion. Thoracic Vessels: The aorta and pulmonary arteries demonstrate normal size. No central pulmonary embolism. Mediastinum and Corin: Shotty mediastinal lymph nodes. -Prevascular node measuring 1 cm, (2/32), unchanged. -Precarinal node measuring 1 cm, (2/34), unchanged. Esophagus: No wall thickening. No hiatal hernia. ABDOMEN: Liver: No solid mass. Gallbladder: No radiopaque gallstones or wall thickening. Biliary ducts: No biliary dilation. Pancreas: No ductal dilation. Spleen: Size is within normal limits. Adrenal Glands: No adrenal nodules. Kidneys and Ureters: No hydronephrosis. No solid mass. No complex renal cystic lesion which requires follow up. Stomach and Bowel: Stomach is distended. Dilated loops of small bowel. No discrete transition point is identified. The small bowel appears thickened with mesenteric edema. Diverticulosis. Possible mild diverticulitis in the right lower quadrant, (2/137). Surrounding trace fluid or inflammatory change. No extraluminal gas is identified. Suspected pneumatosis intestinalis at the ascending colon, (3/80). The appendix is not definitely seen Peritoneum: No significant ascites. Small amount of free fluid in the right lower quadrant. No pneumoperitoneum. Ventral Wall: No significant ventral hernia. Abdominal Nodes: No retroperitoneal or mesenteric adenopathy by size criteria.Vessels: Aorta and inferior vena cava are normal in size. Portal vein is patent. No portal venous gas. SMV is patent. PELVIS: Pelvic Organs: Uterus is absent. Small left ovarian cyst. Bladder: No bladder wall thickening, accounting for underdistention. No stone. Pelvic Nodes: No enlarged lymph nodes. Miscellaneous: No inguinal hernias are seen. Bones: No aggressive osseous abnormality. Asymmetric sclerosis at the left iliac bone, (2/181), unchanged. DDD most pronounced at L5-S1. IMPRESSION: 1. Curvilinear and consolidative opacity at the left lower lobe. Differential diagnosis of atelectasis/scarring/round atelectasis versus pneumonia. Recommend clinical correlation. CT chest in 3 months would be helpful for further characterization. 2. A few enlarged and shotty mediastinal lymph nodes. Similar. 3. Dilated loops of small bowel. Mesenteric edema and bowel wall thickening. No discrete transition point is identified. Findings suspicious for small bowel obstruction. 4. Small amount of free fluid in the right lower quadrant. Adjacent small bowel diverticuli. This could be tracking reactive fluid or possibly mild diverticulitis. Lower suspicion for appendicitis. The appendix is not identified. 5. Suspected ascending colon pneumatosis intestinalis. Uncertain clinical significance. No pneumoperitoneum. 6. Asymmetric sclerosis at the left pelvis is unchanged. Uncertain clinical significance. Chest x-ray: Radiologist's Impression: PROCEDURE: XR CHEST 1V INDICATIONS: ng tube placement TECHNIQUE: One view of the chest was acquired. COMPARISON: [facility], CT, CT CHEST ABD PEL W CON, 04/27/2025, 1:49. [facility], CR, XR CHEST 2V, 06/17/2024, 13:49. [facility], CR, XR CHEST 2V, 02/24/2024, 20:29. FINDINGS: Surgical changes and devices: Enteric tube coursing into the stomach. Lungs and pleura: No consolidation identified. Opacity at the left lower lobe seen on recent CT is not well appreciated. No pleural effusions or pneumothorax. Mediastinum: Mediastinal contours appear unchanged. Heart size appears enlarged. Bones and chest wall: No suspicious bony lesions. Overlying soft tissues appear unremarkable. IMPRESSION: Enteric tube coursing into the stomach MDM Narrative Medical decision making narrative: Patient is a 44-year-old female who presents with nausea, vomiting, hematemesis, abdominal pain, and diarrhea for the past few days. Differential diagnosis: ACS, upper GI bleed, peptic ulcer disease, colitis, gastroenteritis, bowel obstruction, other. Labs: CBC with leukocytosis (WBC 11.7) and left shift (neutrophils 77.8), no anemia or thrombocytopenia. Coags with elevated PT at 12.6, INR 1.1, APTT 20. Hypokalemia (K 3.1), normal lipase, normal profile, urinalysis not consistent with urinary tract infection. Imaging: CT chest abdomen and pelvis significant for small bowel obstruction with small amount of free fluid in the right lower quadrant that could reactive fluid versus mild diverticulitis. Suspected ascending colon pneumatosis intestinalis. EK normal sinus rhythm, HR 99, IA 154, QT 368, QTC 472, no left axis deviation, no ectopy, poor R-wave progression no evidence of ischemia. This EKG was compared to 1 obtained on 01/01/2024 and is unchanged. Consultation: [address] Herring, general surgery, who recommended inpatient admission with medicine. [id number] Patient accepted for inpatient admission by Dr. Roby Fry. ED course: Patient arrived to the ER tachycardic (HR 111), febrile (99.7F), with all other vitals normal. Sepsis protocol was initiated. Patient was given fluids and antibiotics, made NPO. Her abdominal exam was significant for distended abdomen that was tender in all quadrants however would not peritonitic. No rebound or guarding. Workup significant for leukocytosis with left shift, and hypokalemia with image findings concerning for pneumatosis intestinalis as well as small bowel obstruction. I discussed these findings with the patient and spouse at bedside and recommended NG tube placement for decompression. General surgery was consulted and patient was admitted to the medicine service for further care and management. Discharge Plan Departure Patient Disposition: Admitted As Inpatient Clinical Impression: Small bowel obstruction, Hypokalemia Admit Date/Time: 04/27/25 04:05 Admit Provider: Roby Fry
[2025-04-27] MEDS: POTASSIUM CHLORIDE IN WATER 10 MEQ/100 ML PIGGYBACK 100 MEQ IV ×8 (01:34→17:45)
--- NOTE | 2025-04-27 01:45 | PC.NURSE ---
Pt is currently a smoker, has a resp hx,( sleep apnea, asthma, uses nebs at home, pnuemonia).
--- NOTE | 2025-04-27 01:48 | DI.CT.S_ITS ---
PROCEDURE: CT CHEST ABD PEL W CON INDICATIONS: hypoxic, hematemasis, n/v/d, abd pain TECHNIQUE: After the administration of intravenous contrast, 5 mm thick sections acquired from the lung apices to the symphysis. 5 mm coronal and sagittal reformats were performed, with additional 7 mm MIP reformats through the lungs. For radiation dose reduction, the following was used: automated exposure control, adjustment of mA and/or kV according to patient size. COMPARISON: [facility], CT, CT CHEST WO CON, 01/03/2024, 18:39. [facility], CR, XR CHEST 1V, 04/27/2025, 8:34. [facility], CT, CT CHEST ABD PEL W CON, 10/22/2023, 6:44. FINDINGS: Image quality: Excellent. CHEST: Lower Neck: No enlarged lymph nodes. Thyroid: No thyroid nodules which require sonographic follow up, per consensus guidelines. Axillae: No enlarged lymph nodes. Chest Wall: Unremarkable. Lungs and Pleura: No pneumothorax. Resolved left pleural effusion. Curvilinear and consolidative opacity at the left lower lobe. Mild ground-glass opacity in the lingula and right middle lobe. Left fissure pulmonary nodule measuring 0.5 cm, (5/158). The central airways are clear. Heart: Heart size is normal. No pericardial effusion. Thoracic Vessels: The aorta and pulmonary arteries demonstrate normal size. No central pulmonary embolism. Mediastinum and Corin: Shotty mediastinal lymph nodes. -Prevascular node measuring 1 cm, (2/32), unchanged. -Precarinal node measuring 1 cm, (2/34), unchanged. Esophagus: No wall thickening. No hiatal hernia. ABDOMEN: Liver: No solid mass. Gallbladder: No radiopaque gallstones or wall thickening. Biliary ducts: No biliary dilation. Pancreas: No ductal dilation. Spleen: Size is within normal limits. Adrenal Glands: No adrenal nodules. Kidneys and Ureters: No hydronephrosis. No solid mass. No complex renal cystic lesion which requires follow up. Stomach and Bowel: Stomach is distended. Dilated loops of small bowel. No discrete transition point is identified. The small bowel appears thickened with mesenteric edema. Diverticulosis. Possible mild diverticulitis in the right lower quadrant, (2/137). Surrounding trace fluid or inflammatory change. No extraluminal gas is identified. Suspected pneumatosis intestinalis at the ascending colon, (3/80). The appendix is not definitely seen Peritoneum: No significant ascites. Small amount of free fluid in the right lower quadrant. No pneumoperitoneum. Ventral Wall: No significant ventral hernia. Abdominal Nodes: No retroperitoneal or mesenteric adenopathy by size criteria. Vessels: Aorta and inferior vena cava are normal in size. Portal vein is patent. No portal venous gas. SMV is patent. PELVIS: Pelvic Organs: Uterus is absent. Small left ovarian cyst. Bladder: No bladder wall thickening, accounting for underdistention. No stone. Pelvic Nodes: No enlarged lymph nodes. Miscellaneous: No inguinal hernias are seen. Bones: No aggressive osseous abnormality. Asymmetric sclerosis at the left iliac bone, (2/181), unchanged. DDD most pronounced at L5-S1. IMPRESSION: 1. Curvilinear and consolidative opacity at the left lower lobe. Differential diagnosis of atelectasis/scarring/round atelectasis versus pneumonia. -Recommend clinical correlation. CT chest in 3 months would be helpful for further characterization. 2. A few enlarged and shotty mediastinal lymph nodes. Similar. 3. Dilated loops of small bowel. Mesenteric edema and bowel wall thickening. No discrete transition point is identified. Findings suspicious for small bowel obstruction. 4. Small amount of free fluid in the right lower quadrant. Adjacent small bowel diverticuli. This could be tracking reactive fluid or possibly mild diverticulitis. Lower suspicion for appendicitis. The appendix is not identified. 5. Suspected ascending colon pneumatosis intestinalis. Uncertain clinical significance. No pneumoperitoneum. 6. Asymmetric sclerosis at the left pelvis is unchanged. Uncertain clinical significance. No significant discrepancy with the overnight preliminary interpretation. Dictated by: Ede Paulson M.D. on 04/27/2025 at 10:11 Approved by: Ede Paulson M.D. on 04/27/2025 at 10:36
[2025-04-27 04:00] LABS: Appearance Urine UA SL CLOUDY; Bilirubin Urine UA NEGATIVE (NEGATIVE); Color Urine UA YELLOW; Glucose Urine UA 2+ g/dL (Negative); Ketones Urine UA NEGATIVE (NEGATIVE); Leukocyte Esterase Urine UA NEGATIVE (NEGATIVE); Nitrite Urine UA NEGATIVE (Negative); Occult Blood Urine UA TRACE-INTACT (Negative); Protein Urine UA NEGATIVE (Negative); Specific Gravity Urine UA <=1.005 (1.000-1.035); Urobilinogen Urine UA 0.2 E.U./dL (0.2)
[2025-04-27 04:01] LABS: pH Urine UA 5.5 (4.5-8.0)
[2025-04-27 04:03] LABS: Culture Indicated Urine Specimen Cultured
[2025-04-27] MEDS: PIPERACILLIN/TAZO 4.5 GM in SODIUM CHLORIDE 0.9% 100 ML IV (04:09)
[2025-04-27] MEDS: LACTATED RINGERS 1,000 ML 125 ML IV (04:10)
[2025-04-27] MEDS: ONDANSETRON 4 MG ODT PO (04:11)
[2025-04-27 04:38] LABS: Lactate (Lactic Acid) 0.6 mmol/L (0.7-2.1)
[2025-04-27 04:53] LABS: Procalcitonin 0.214 ng/mL (<0.5)
[2025-04-27 05:12] LABS: Alanine Aminotransferase 29 IU/L (<35); Albumin 3.3 g/dL (3.5-5.0); Albumin Globulin Ratio 1.2 (1.0-2.8); Alkaline Phosphatase 121 U/L (38-126); Blood Urea Nitrogen 15 mg/dL (7-17); Calcium 7.9 mg/dL (8.4-10.2); Carbon Dioxide 29 mmol/L (22-32); Chloride 98 mmol/L (98-107); Estimated Glomerular Filt Rate > 60 mL/min (>60); Globulin 2.8 g/dL (1.7-4.1); Glucose 123 mg/dL (70-99); HEMOLYSIS 23 (0-50); Potassium 2.8 mmol/L (3.4-5.1); Sodium 136 mmol/L (137-145); Total Protein 6.1 g/dL (6.3-8.2)
--- NOTE | 2025-04-27 06:19 | PM.HP.1 ---
History of Present Illness History of Present Illness Date Patient Seen: 04/27/25 Time Patient Seen: 06:20 Chief complaint: Vomiting Blood, Abdominal Pain, Fever Narrative: 44-year-old female with past medical history of appendectomy and , depression, neuropathy, hypothyroidism, hypertension, asthma, fibromyalgia and irritable bowel syndrome presents with complaint of nausea, vomiting, diarrhea and abdominal pain. Per the patient's report, over the last few days the patient started to notice some nausea with some abdominal discomfort. Today the patient nausea worsens and the patient had vomiting and watery diarrhea. The patient noticed some small amount of blood in her stool but denies any syncope. The patient also had subjective fever but denies chills, chest pain, shortness of breath or dysuria. In the emergency room, the patient was hemodynamically stable. Lab shows a WBC of 11.7, potassium of 2.7 lipase [address] scan shows sign of small bowel obstruction with pneumatosis of the colon wall. General surgery was consulted and recommend that we continue treating for small bowel obstruction and general surgery will consult in the morning. The patient remained hemodynamically stable. Patient was given IV fluid, IV Zosyn potassium replacement and plan for NG tube placement. [facility] Medical History (Updated 11/25/24 @ 16:43 by Eduard Arreguin DO) Dizziness Arthralgia Weight gain, abnormal Orthostatic hypotension Nausea and vomiting in adult patient Hot flashes due to menopause Onychomycosis Chronic pain due to neoplasm Functional memory problem BMI 45.0-49.9, adult History of colon polyps Insomnia disorder, with non-sleep disorder mental comorbidity Bilateral chronic knee pain Acute pain of right knee UTI (urinary tract infection) Paget's disease of bone Obstructive sleep apnea on CPAP Lymphedema of arm Essential hypertension Major depressive disorder Abrasion, corneal Migraines Fibromyalgia (~05/2017) History of PCR DNA positive for HSV1 (~2014) Hypothyroidism (~2008) Rheumatoid arthritis Asthma Depression Irritable bowel syndrome Diverticular disease (~2015) Gestational diabetes mellitus (GDM) (10/27/14) Surgical History Status post laparoscopy (01/19/16) Status post laparoscopic supracervical hysterectomy (10/23/15) Status post delivery (12/30/14) Status post tubal ligation (12/30/14) Status post surgery (07/07/12) Family History Grandmother Stroke Grandfather Heart disease Cancer Father Hypertension Mother Hypothyroidism (acquired) Social History marital status: household members: spouse and children lives independently: Yes alcohol intake: current substance use type: does not use Meds Home Medications and Allergies Home Medications ?Medication ?Instructions ?Recorded ?Confirmed ?Type metoprolol tartrate 25 mg tablet 25 mg PO BID #180 tabs 09/10/23 03/16/25 Rx ibuprofen 200 mg tablet (Motrin IB) 400 mg (2 x 200 mg) PO Q8H PRN 09/18/23 03/16/25 Rx pain (scale score 4-6) #30 tabs spironolactone 25 mg tablet 25 mg PO DAILY #90 tabs 02/09/24 03/16/25 Rx meclizine 25 mg tablet 25 mg PO BID PRN dizziness #60 tabs 08/13/24 03/16/25 Rx duloxetine 60 mg capsule,delayed 60 mg PO DAILY #90 caps 11/02/24 03/16/25 Rx release pregabalin 200 mg capsule See Rx Instructions .Route 11/19/24 03/16/25 Rx .COMPLEX fibromyalgia M79.7 #270 caps albuterol sulfate 90 mcg/actuation 2 puff inhalation Q4H PRN for 11/25/24 03/16/25 Rx aerosol inhaler wheezing #8.5 grams empagliflozin 10 mg tablet 10 mg PO DAILY #90 tabs 11/25/24 03/16/25 Rx (Jardiance) levothyroxine 150 mcg tablet 150 mcg PO QAM #90 tabs 11/25/24 03/16/25 Rx liraglutide 0.6 mg/0.1 mL (18 mg/3 See Rx Instructions SUBCUT 11/25/24 03/16/25 Rx mL) subcutaneous pen injector .COMPLEX #6 mL losartan 50 mg tablet 50 mg PO DAILY #90 tabs 11/25/24 03/16/25 Rx mometasone-formoterol HFA 200 2 puff inhalation BID #8.8 grams 11/25/24 03/16/25 Rx mcg-5 mcg/actuation aerosol inhaler (Dulera) ondansetron 4 mg disintegrating 4 mg PO Q8H PRN nausea and 11/25/24 03/16/25 Rx tablet vomiting #30 tabs pen needle, diabetic 32 gauge x #100 ea 11/25/24 03/16/25 Rx 5/32 tizanidine 4 mg tablet 4 mg PO BEDTIME PRN muscle 11/25/24 03/16/25 Rx spasticity #90 tabs furosemide 80 mg tablet 320 mg (4 x 80 mg) PO DAILY #360 11/30/24 03/16/25 Rx tabs potassium chloride 20 mEq/15 mL 10 meq (7.5 mL) PO DAILY #1,200 mL 11/30/24 03/16/25 Rx oral liquid quetiapine 25 mg tablet 75 mg (3 x 25 mg) PO ONCE PM #90 12/07/24 03/16/25 Rx tabs albuterol sulfate 2.5 mg/3 mL 2.5 mg (3 mL) inhalation Q4-6H PRN 01/14/25 03/16/25 Rx (0.083 %) solution for nebulization bronchospasm #90 mL liraglutide 0.6 mg/0.1 mL (18 mg/3 1.8 mg (0.3 mL) SUBCUT Q24H #9 mL 03/16/25 03/16/25 Rx mL) subcutaneous pen injector ofloxacin 0.3 % ear drops 5 drp otic (ear) BID #10 mL 03/17/25 03/17/25 Rx amitriptyline 150 mg tablet 150 mg PO ONCE PM #90 tabs 04/11/25 Rx bupropion HCl 150 mg 24 hr tablet, 150 mg PO DAILY #90 tabs 04/21/25 Rx extended release oxycodone 10 mg tablet See Rx Instructions .Route 04/22/25 Rx .COMPLEX #150 tabs Allergies Allergy/AdvReac Type Severity Reaction Status Date / Time Penicillins (PENICILLINS) Allergy Mild Rash Verified 04/27/25 00:15 fluconazole (From DIFLUCAN) AdvReac Intermediate vomiting Verified 04/27/25 00:15 and abd pain codeine (CODEINE) AdvReac Mild NAUSEA Verified 04/27/25 00:15 Review of Systems Review of Systems ROS: Yes All systems reviewed with the patient and are negative except as otherwise documented Exam Vital Signs (past 8 hours): - 12/24/25 00:15 04/27/25 01:20 04/27/25 01:21 Temperature 99.7 F H Pulse Rate 111 H 106 H 105 H Respiratory Rate 20 Blood Pressure 122/73 Pulse Oximetry 93 77 L 91 Oxygen Delivery Method Room Air Nasal Cannula Oxygen Flow Rate 2 04/27/25 01:21 04/27/25 01:30 04/27/25 01:30 Temperature Pulse Rate 102 H Respiratory Rate 15 Blood Pressure 137/85 126/66 Pulse Oximetry 87 L Oxygen Delivery Method Oxygen Flow Rate 04/27/25 01:47 04/27/25 02:07 04/27/25 02:30 Temperature Pulse Rate 104 H 96 H Respiratory Rate 14 Blood Pressure Pulse Oximetry 88 L 91 Oxygen Delivery Method Nasal Cannula Oxygen Flow Rate 2 04/27/25 03:00 04/27/25 03:30 Temperature Pulse Rate 96 H 95 H Respiratory Rate 15 Blood Pressure Pulse Oximetry 91 94 Oxygen Delivery Method Oxygen Flow Rate Oxygen Delivery Method Nasal Cannula Oxygen Flow Rate 2 Narrative Exam Narrative: Physical Exam: GENERAL: The patient is not in any acute distressed. Awake and alert. HEENT: Nonicteric sclerae, PERRLA, EOMI. Oropharynx clear. Moist mucous membranes. Conjunctivae appear well perfused. HEART: Regular rate and rhythm without murmurs. No lower extremities edema. LUNGS: Clear to auscultation bilaterally. No wheezing, crackles or rhonchi ABDOMEN: Tenderness in left side but no rebound. Soft, positive bowel sounds SKIN: No rash, no excessive bruising, petechiae, or purpura. NEUROLOGIC: AxO x 3. Cranial nerves II-XII intact without motor/sensory deficit. Objective Labs 04/27/25 00:38 04/27/25 04:40 Labs: Laboratory Results - last 24 hr 04/27/25 04/27/25 04/27/25 00:38 03:51 04:00 WBC 11.7 H RBC 4.92 Hgb 13.8 Hct 41.9 MCV 85.1 MCH 28.0 MCHC 32.9 RDW 15.7 H Plt Count 285 Neut % (Auto) 77.8 H Lymph % (Auto) 9.7 L [place] % (Auto) 9.6 Eos % (Auto) 2.6 Baso % (Auto) 0.3 Neut # (Auto) 9100 H Lymph # (Auto) 1100 [place] # (Auto) 1100 H Eos # (Auto) 300 Baso # (Auto) 0 Sodium 137 Potassium 2.7 L* Chloride 95 L Carbon Dioxide 34 H BUN 19 H Creatinine 1.04 Estimated GFR > 60 BUN/Creatinine Ratio 18.3 Glucose 124 H Lactate 0.6 L Calcium 8.6 Total Bilirubin 0.4 AST 46 H ALT 34 Alkaline Phosphatase 133 H Total Protein 7.2 Albumin 3.9 Globulin 3.3 Albumin/Globulin Ratio 1.2 Lipase 35 Procalcitonin 0.214 Urine Color Yellow Urine Appearance Sl cloudy Urine pH 5.5 Ur Specific [place] <=1.005 Urine Protein Negative Urine Glucose (UA) 2+ H Urine Ketones Negative Urine Occult Blood Trace-intact Urine Nitrate Negative Urine Bilirubin Negative Urine Urobilinogen 0.2 Ur Leukocyte Esterase Negative Urine RBC 0-1/hpf Urine WBC 5-10/hpf H Ur Squamous Epith Cells 10-30 /hpf H D Urine Bacteria Many (>30) H Ur Culture Indicated? Specimen cultured Vol Urine Centrifuged 10ml (spun) 04/27/25 04:40 WBC RBC Hgb Hct MCV MCH MCHC RDW Plt Count Neut % (Auto) Lymph % (Auto) [place] % (Auto) Eos % (Auto) Baso % (Auto) Neut # (Auto) Lymph # (Auto) [place] # (Auto) Eos # (Auto) Baso # (Auto) Sodium 136 L Potassium 2.8 L Chloride 98 Carbon Dioxide 29 BUN 15 Creatinine 0.78 Estimated GFR > 60 BUN/Creatinine Ratio 19.2 Glucose 123 H Lactate Calcium 7.9 L Total Bilirubin 0.3 AST 38 H ALT 29 Alkaline Phosphatase 121 Total Protein 6.1 L Albumin 3.3 L Globulin 2.8 Albumin/Globulin Ratio 1.2 Lipase Procalcitonin Urine Color Urine Appearance Urine pH Ur Specific [place] Urine Protein Urine Glucose (UA) Urine Ketones Urine Occult Blood Urine Nitrate Urine Bilirubin Urine Urobilinogen Ur Leukocyte Esterase Urine RBC Urine WBC Ur Squamous Epith Cells Urine Bacteria Ur Culture Indicated? Vol Urine Centrifuged Assessment & Plan Assessment & Plan narrative: Small bowel obstruction with pneumatosis of the colonic wall. Admit the patient to medical inpatient. NPO. IV fluid. IV antiemetics. If patient worsen will place NG tube. Continue empiric IV Zosyn. Patient is not septic at this time with normal lactic acid. Appreciate general surgery who will consult in the morning. Hypokalemia. Potassium 2.7. Replace and monitor. Dehydration. IV fluid. Asthma. No sign of exacerbation. Resume home inhalers. Hypothyroidism. Resume home Synthroid. Hypertension. Monitor blood pressure and resume home medication accordingly. DVT prophylaxis SCDs. CODE STATUS full code Disposition likely home in 2 to 3 days - As the provider of this telehealth evaluation, requested by the patient's evaluating physician, I attest that I introduced myself to the patient, provided my credentials and determined that telemedicine via a real-time, 2 way interactive audio and video platform is an appropriate and effective means of providing this service. - I reviewed the patient's chart and had a discussion with the member of the patient's treatment team. - The patient and I mutually agreed with continuation of this evaluation via telemedicine. The patient consented for the telemedicine evaluation. - This virtual encounter was taken place from [place] by Dr. Roby Fry. The patient was evaluated at [facility]. The encounter was approximately 35 minutes. The nurse was present during the entire time of the encounter and was able assists with the stethoscope to listen to the patients. Time-Based Coding :: [TOTAL MINUTES] spent with patient and on the chart (including review of chart, obtaining history, exam, reviewing outside data, placing orders, documenting exam and treatment plan, and counseling patient) on [DATE].
--- NOTE | 2025-04-27 07:48 | P.PN_ITS ---
Subjective Subjective Date Patient Seen: 04/27/25 Time Patient Seen: 07:48 Interval history: Chief complaint: Abdominal pain and diarrhea for 5 days (since 04/22) with findings of ileus and pneumatosis on CT History of present illness: 04/26: 44-year-old female with past medical history of appendectomy and C- section, depression, neuropathy, hypothyroidism, hypertension, asthma, fibromyalgia and irritable bowel syndrome presents with complaint of nausea, vomiting, diarrhea and abdominal pain. Per the patient's report, over the last few days the patient started to notice some nausea with some abdominal discomfort. Today the patient nausea worsens and the patient had vomiting and watery diarrhea. The patient noticed some small amount of blood in her stool but denies any syncope. The patient also had subjective fever but denies chills, chest pain, shortness of breath or dysuria. In the emergency room, the patient was hemodynamically stable. Lab shows a WBC of 11.7, potassium of 2.7 lipase [address] scan shows sign of small bowel obstruction with pneumatosis of the colon wall. General surgery was consulted and recommend that we continue treating for small bowel obstruction and general surgery will consult in the morning. The patient remained hemodynamically stable. Patient was given IV fluid, IV Zosyn potassium replacement and plan for NG tube placement. Hospital course: 04/27: Patient seen at 7:30 a.m. no rigors or chills overnight last bowel movement was 6-8 hours ago no vomiting. Bowel sounds present throughout the abdomen which is distended and diffusely tender but without guarding rebound. Repeat CBC CMP and lactate ordered PT and PTT ordered in case the patient needs to go to surgery. At present to the hospital physician she does not appear to need emergent surgery, however we will defer to surgical consultant opinion. Review of systems: No fever or chills rigors No vomiting Chest pain palpitations No acute dyspnea No paresthesia or paresis Physical examination: Patient appears moderately ill but is alert and not in acute extremis HEENT unremarkable Lungs with shortened respiratory phases occasional rhonchi diminished vesicular breath sounds no crackles or rales at bases Heart rate and rhythm regular with a low pitch 3/6 holosystolic murmur loudest at the right sternal border Abdomen is distended bowel sounds are low pitched and present throughout the abdomen diffusely tender but without rebound or guarding Extremities no edema or cyanosis Assessment and plan: Colitis with findings on CT that suggest ileus and possibly pneumatosis of the colon wall per impression of the radiologist without sign of bowel perforation or acute abdomen * Continue Zosyn * GI film panel * Blood culture * Consultation with General surgery * NPO and IV fluid hydration * Serial lactate and CBC Dehydration and hypokalemia secondary to vomiting and diarrhea from colitis * Hydration and potassium repletion Chronic diastolic congestive heart failure: * Appears compensated at this time * Monitor for signs of fluid overload or cardiorenal syndrome during hospitalization Chronic asthma: * Bronchodilators as needed DVT prophylaxis: * SCDs only Code status: * Full code blue Disposition: * Inpatient expect at least 2-3 days after which further hospitalization will be evaluated Time based billing: * 35 minutes were evaluation in evaluation of this patient including [id number] evaluation physical evaluation review of previous records discussion with the patient review of objective laboratory and imaging findings discussion with consultants and care team Exam Vital Signs (past 8 hours): - 04/27/25 00:15 04/27/25 01:20 04/27/25 01:21 Temperature 99.7 F H Pulse Rate 111 H 106 H 105 H Respiratory Rate 20 Blood Pressure 122/73 Pulse Oximetry 93 77 L 91 Oxygen Delivery Method Room Air Nasal Cannula Oxygen Flow Rate 2 04/27/25 01:21 04/27/25 01:30 04/27/25 01:30 Temperature Pulse Rate 102 H Respiratory Rate 15 Blood Pressure 137/85 126/66 Pulse Oximetry 87 L Oxygen Delivery Method Oxygen Flow Rate 04/27/25 01:47 04/27/25 02:07 04/27/25 02:30 Temperature Pulse Rate 104 H 96 H Respiratory Rate 14 Blood Pressure Pulse Oximetry 88 L 91 Oxygen Delivery Method Nasal Cannula Oxygen Flow Rate 2 04/27/25 03:00 04/27/25 03:30 Temperature Pulse Rate 96 H 95 H Respiratory Rate 15 Blood Pressure Pulse Oximetry 91 94 Oxygen Delivery Method Oxygen Flow Rate Oxygen Delivery Method Nasal Cannula Oxygen Flow Rate 2 Objective Labs 04/27/25 00:38 04/27/25 04:40 Labs: Laboratory Results - last 24 hr 04/27/25 04/27/25 04/27/25 00:38 03:51 04:00 WBC 11.7 H RBC 4.92 Hgb 13.8 Hct 41.9 MCV 85.1 MCH 28.0 MCHC 32.9 RDW 15.7 H Plt Count 285 Neut % (Auto) 77.8 H Lymph % (Auto) 9.7 L [place] % (Auto) 9.6 Eos % (Auto) 2.6 Baso % (Auto) 0.3 Neut # (Auto) 9100 H Lymph # (Auto) 1100 [place] # (Auto) 1100 H Eos # (Auto) 300 Baso # (Auto) 0 Sodium 137 Potassium 2.7 L* Chloride 95 L Carbon Dioxide 34 H BUN 19 H Creatinine 1.04 Estimated GFR > 60 BUN/Creatinine Ratio 18.3 Glucose 124 H Lactate 0.6 L Calcium 8.6 Total Bilirubin 0.4 AST 46 H ALT 34 Alkaline Phosphatase 133 H Total Protein 7.2 Albumin 3.9 Globulin 3.3 Albumin/Globulin Ratio 1.2 Lipase 35 Procalcitonin 0.214 Urine Color Yellow Urine Appearance Sl cloudy Urine pH 5.5 Ur Specific [place] <=1.005 Urine Protein Negative Urine Glucose (UA) 2+ H Urine Ketones Negative Urine Occult Blood Trace-intact Urine Nitrate Negative Urine Bilirubin Negative Urine Urobilinogen 0.2 Ur Leukocyte Esterase Negative Urine RBC 0-1/hpf Urine WBC 5-10/hpf H Ur Squamous Epith Cells 10-30 /hpf H D Urine Bacteria Many (>30) H Ur Culture Indicated? Specimen cultured Vol Urine Centrifuged 10ml (spun) 04/27/25 04:40 WBC RBC Hgb Hct MCV MCH MCHC RDW Plt Count Neut % (Auto) Lymph % (Auto) [place] % (Auto) Eos % (Auto) Baso % (Auto) Neut # (Auto) Lymph # (Auto) [place] # (Auto) Eos # (Auto) Baso # (Auto) Sodium 136 L Potassium 2.8 L Chloride 98 Carbon Dioxide 29 BUN 15 Creatinine 0.78 Estimated GFR > 60 BUN/Creatinine Ratio 19.2 Glucose 123 H Lactate Calcium 7.9 L Total Bilirubin 0.3 AST 38 H ALT 29 Alkaline Phosphatase 121 Total Protein 6.1 L Albumin 3.3 L Globulin 2.8 Albumin/Globulin Ratio 1.2 Lipase Procalcitonin Urine Color Urine Appearance Urine pH Ur Specific [place] Urine Protein Urine Glucose (UA) Urine Ketones Urine Occult Blood Urine Nitrate Urine Bilirubin Urine Urobilinogen Ur Leukocyte Esterase Urine RBC Urine WBC Ur Squamous Epith Cells Urine Bacteria Ur Culture Indicated? Vol Urine Centrifuged [facility] Medical History (Updated 07/24/25 @ 16:43 by Eduard Arreguin DO) Dizziness Arthralgia Weight gain, abnormal Orthostatic hypotension Nausea and vomiting in adult patient Hot flashes due to menopause Onychomycosis Chronic pain due to neoplasm Functional memory problem BMI 45.0-49.9, adult History of colon polyps Insomnia disorder, with non-sleep disorder mental comorbidity Bilateral chronic knee pain Acute pain of right knee UTI (urinary tract infection) Paget's disease of bone Obstructive sleep apnea on CPAP Lymphedema of arm Essential hypertension Major depressive disorder Abrasion, corneal Migraines Fibromyalgia (~05/2017) History of PCR DNA positive for HSV1 (~2014) Hypothyroidism (~2008) Rheumatoid arthritis Asthma Depression Irritable bowel syndrome Diverticular disease (~2015) Gestational diabetes mellitus (GDM) (10/27/14) Surgical History Status post laparoscopy (01/19/16) Status post laparoscopic supracervical hysterectomy (10/23/15) Status post delivery (12/30/14) Status post tubal ligation (12/30/14) Status post surgery (07/07/12) Family History Grandmother Stroke Grandfather Heart disease Cancer Father Hypertension Mother Hypothyroidism (acquired) Social History marital status: household members: spouse and children lives independently: Yes alcohol intake: current substance use type: does not use Assessment & Plan Time-Based Coding :: [TOTAL MINUTES] spent with patient and on the chart (including review of chart, obtaining history, exam, reviewing outside data, placing orders, documenting exam and treatment plan, and counseling patient) on [DATE].
[2025-04-27] MEDS: LIDOCAINE 2% (GLYDO) 6 ML GEL TOP (08:25)
[2025-04-27] MEDS: PIPERACILLIN/TAZO 3.375 GM in SODIUM CHLORIDE 0.9% 100 ML IV ×2 (08:42→16:12)
[2025-04-27] MEDS: MORPHINE 4 MG/ML INJ 3 MG IV ×5 (10:18→22:03)
[2025-04-27] MEDS: SODIUM CHLORIDE 0.9% 1,000 ML 100 ML IV ×2 (10:19→22:03)
--- NOTE | 2025-04-27 10:55 | PC.NURSE ---
NS and Pip-Mirza running at time of transfer to acute care.
--- NOTE | 2025-04-27 10:56 | PC.NURSE ---
Charted that taken upstairs by RN but charge changed to bio medical technician
[2025-04-27 11:38] LABS: INR 1.1 (0.9-1.3); Prothrombin Time 12.6 SECONDS (9.4-12.5)
[2025-04-27 11:41] LABS: Add Manual Diff / Slide Review YES; Hematocrit 38.4 % (36-46); Hemoglobin 12.7 g/dL (12.0-16.0); Mean Corpuscular HGB Conc 33.1 % (30-36); Mean Corpuscular Hemoglobin 28.0 PG (26-34); Mean Corpuscular Volume 84.7 fL (80-100); Platelet Count 219 X10^3/uL (150-400)
[2025-04-27 11:42] LABS: Alanine Aminotransferase 28 IU/L (<35); Albumin 3.0 g/dL (3.5-5.0); Albumin Globulin Ratio 1.1 (1.0-2.8); Alkaline Phosphatase 116 U/L (38-126); Blood Urea Nitrogen 12 mg/dL (7-17); Calcium 8.1 mg/dL (8.4-10.2); Carbon Dioxide 30 mmol/L (22-32); Chloride 99 mmol/L (98-107); Estimated Glomerular Filt Rate > 60 mL/min (>60); Globulin 2.8 g/dL (1.7-4.1); Glucose 110 mg/dL (70-99); HEMOLYSIS < 15 (0-50); Potassium 3.1 mmol/L (3.4-5.1); Sodium 136 mmol/L (137-145); Total Protein 5.8 g/dL (6.3-8.2)
[2025-04-27 11:50] LABS: PTT Partial Thromboplastin Tim 20 SECONDS (25.1-36.5)
[2025-04-27 12:03] LABS: Amylase 30 U/L (30-110)
[2025-04-27 12:23] LABS: Anisocytosis 1+; Band Neutrophils Percent 12.0 % (3-7); Eosinophils Percent Manual 2.0 % (2-4); Lymphocytes Percent Manual 17.0 % (25-45); Monocytes Percent Manual 12.0 % (2-11); Neutrophils Absolute Manual 6693 /uL (3000-5900); Segmented Neutrophils Percent 57.0 % (38-70); Total Cells Counted 100
--- NOTE | 2025-04-27 14:03 | PM.CN.IH.1 ---
History of Present Illness Consult details Date Patient Seen: 04/27/25 Time Patient Seen: 12:40 Chief complaint: Vomiting Blood, Abdominal Pain, Fever Reason for consult: SBO Requesting provider: Nitish Sellers Narrative: Surgery consult requested for 44yo F admitted through ED with SBO. She c/o 6 days of n/v of dark fluid. No bright red blood in vomit or stool. Had colonoscopy at 10/08/22 notable for sigmoid diverticulosis. FH negative for colon cancer. Abdominal surgeries include appendectomy and . CT demonstrates dilated small bowel with mesenteric edema, markedly distended stomach, bowel wall thickening, pneumotosis coli at hepatic flexure, no free air. WBC normal, lactate normal. NGT placed this morning. Meds Home Medications and Allergies Home Medications ?Medication ?Instructions ?Recorded ?Confirmed ?Type metoprolol tartrate 25 mg tablet 25 mg PO BID #180 tabs 09/10/23 04/27/25 Rx ibuprofen 200 mg tablet (Motrin IB) 400 mg (2 x 200 mg) PO Q8H PRN 09/18/23 04/27/25 Rx pain (scale score 4-6) #30 tabs spironolactone 25 mg tablet 25 mg PO DAILY #90 tabs 02/09/24 04/27/25 Rx duloxetine 60 mg capsule,delayed 60 mg PO DAILY #90 caps 11/02/24 04/27/25 Rx release pregabalin 200 mg capsule See Rx Instructions .Route 11/19/24 04/27/25 Rx .COMPLEX fibromyalgia M79.7 #270 caps albuterol sulfate 90 mcg/actuation 2 puff inhalation Q4H PRN for 11/25/24 04/27/25 Rx aerosol inhaler wheezing #8.5 grams empagliflozin 10 mg tablet 10 mg PO DAILY #90 tabs 11/25/24 04/27/25 Rx (Jardiance) levothyroxine 150 mcg tablet 150 mcg PO QAM #90 tabs 11/25/24 04/27/25 Rx liraglutide 0.6 mg/0.1 mL (18 mg/3 See Rx Instructions SUBCUT 11/25/24 04/27/25 Rx mL) subcutaneous pen injector .COMPLEX #6 mL ondansetron 4 mg disintegrating 4 mg PO Q8H PRN nausea and 11/25/24 04/27/25 Rx tablet vomiting #30 tabs pen needle, diabetic 32 gauge x #100 ea 11/25/24 04/27/25 Rx 5/32 tizanidine 4 mg tablet 4 mg PO BEDTIME PRN muscle 11/25/24 04/27/25 Rx spasticity #90 tabs furosemide 80 mg tablet 320 mg (4 x 80 mg) PO DAILY #360 11/30/24 04/27/25 Rx tabs potassium chloride 20 mEq/15 mL 10 meq (7.5 mL) PO DAILY #1,200 mL 11/30/24 04/27/25 Rx oral liquid quetiapine 25 mg tablet 75 mg (3 x 25 mg) PO ONCE PM #90 12/07/24 04/27/25 Rx tabs albuterol sulfate 2.5 mg/3 mL 2.5 mg (3 mL) inhalation Q4-6H PRN 01/14/25 04/27/25 Rx (0.083 %) solution for nebulization bronchospasm #90 mL liraglutide 0.6 mg/0.1 mL (18 mg/3 1.8 mg (0.3 mL) SUBCUT Q24H #9 mL 03/16/25 04/27/25 Rx mL) subcutaneous pen injector amitriptyline 150 mg tablet 150 mg PO ONCE PM #90 tabs 04/11/25 04/27/25 Rx bupropion HCl 150 mg 24 hr tablet, 150 mg PO DAILY #90 tabs 04/21/25 04/27/25 Rx extended release oxycodone 10 mg tablet See Rx Instructions .Route 04/22/25 04/27/25 Rx .COMPLEX #150 tabs Allergies Allergy/AdvReac Type Severity Reaction Status Date / Time Penicillins (PENICILLINS) Allergy Mild Rash Verified 04/27/25 00:15 fluconazole (From DIFLUCAN) AdvReac Intermediate vomiting Verified 04/27/25 00:15 and abd pain codeine (CODEINE) AdvReac Mild NAUSEA Verified 04/27/25 00:15 Exam Vital Signs (past 8 hours): - 04/27/25 08:09 04/27/25 08:30 04/27/25 08:38 Temperature Pulse Rate 94 H 97 H Respiratory Rate 17 Blood Pressure 141/77 H Pulse Oximetry 86 L 95 Oxygen Delivery Method Room Air Nasal Cannula Oxygen Flow Rate 2 04/27/25 08:38 04/27/25 09:00 04/27/25 09:00 Temperature Pulse Rate 107 H 88 Respiratory Rate 23 16 Blood Pressure 120/58 L 130/67 Pulse Oximetry 94 95 Oxygen Delivery Method Nasal Cannula Oxygen Flow Rate 2 04/27/25 09:00 04/27/25 09:30 04/27/25 09:30 Temperature Pulse Rate 95 H 94 H Respiratory Rate 15 17 Blood Pressure 136/65 Pulse Oximetry 94 95 Oxygen Delivery Method Nasal Cannula Oxygen Flow Rate 2 04/27/25 10:00 04/27/25 10:22 04/27/25 10:22 Temperature Pulse Rate 93 H 92 H Respiratory Rate 26 H 17 Blood Pressure 120/61 Pulse Oximetry 95 95 Oxygen Delivery Method Nasal Cannula Oxygen Flow Rate 2 04/27/25 11:22 04/27/25 12:53 Temperature 98.6 F Pulse Rate 91 H Respiratory Rate 19 Blood Pressure 132/76 Pulse Oximetry 94 Oxygen Delivery Method Oximask Oxygen Flow Rate 4 Oxygen Delivery Method Oximask Oxygen Flow Rate 4 HENMT Other: NGT in place Resp Effort & Inspection: normal respiratory effort Auscultation: clear to auscultation bilaterally Cardio Rate: regular rate GI Other: Marked distention, +tympany, diffusely tender, non-peritoneal Extrem General: no pedal edema and no calf tenderness Objective Labs 04/27/25 11:18 04/27/25 11:18 Labs: Laboratory Results - last 24 hr 04/27/25 04/27/25 04/27/25 00:38 03:51 04:00 WBC 11.7 H RBC 4.92 Hgb 13.8 Hct 41.9 MCV 85.1 MCH 28.0 MCHC 32.9 RDW 15.7 H Plt Count 285 Neut % (Auto) 77.8 H Lymph % (Auto) 9.7 L [place] % (Auto) 9.6 Eos % (Auto) 2.6 Baso % (Auto) 0.3 Neut # (Auto) 9100 H Lymph # (Auto) 1100 [place] # (Auto) 1100 H Eos # (Auto) 300 Baso # (Auto) 0 Total Counted Seg Neutrophils % Band Neutrophils % Lymphocytes % (Manual) Monocytes % (Manual) Eosinophils % (Manual) Neutrophils # (Manual) RBC Morphology Anisocytosis PT INR APTT Sodium 137 Potassium 2.7 L* Chloride 95 L Carbon Dioxide 34 H BUN 19 H Creatinine 1.04 Estimated GFR > 60 BUN/Creatinine Ratio 18.3 Glucose 124 H Lactate 0.6 L Calcium 8.6 Total Bilirubin 0.4 AST 46 H ALT 34 Alkaline Phosphatase 133 H Total Protein 7.2 Albumin 3.9 Globulin 3.3 Albumin/Globulin Ratio 1.2 Amylase Lipase 35 Procalcitonin 0.214 Urine Color Yellow Urine Appearance Sl cloudy Urine pH 5.5 Ur Specific [place] <=1.005 Urine Protein Negative Urine Glucose (UA) 2+ H Urine Ketones Negative Urine Occult Blood Trace-intact Urine Nitrate Negative Urine Bilirubin Negative Urine Urobilinogen 0.2 Ur Leukocyte Esterase Negative Urine RBC 0-1/hpf Urine WBC 5-10/hpf H Ur Squamous Epith Cells 10-30 /hpf H D Urine Bacteria Many (>30) H Ur Culture Indicated? Specimen cultured Vol Urine Centrifuged 10ml (spun) 04/27/25 04/27/25 04/27/25 04:40 11:16 11:18 WBC 9.7 RBC 4.53 Hgb 12.7 Hct 38.4 MCV 84.7 MCH 28.0 MCHC 33.1 RDW 15.5 H Plt Count 219 Neut % (Auto) Not Reportable Lymph % (Auto) Not Reportable [place] % (Auto) Not Reportable Eos % (Auto) Not Reportable Baso % (Auto) Not Reportable Neut # (Auto) Lymph # (Auto) Not Reportable [place] # (Auto) Not Reportable Eos # (Auto) Baso # (Auto) Not Reportable Total Counted 100 Seg Neutrophils % 57.0 Band Neutrophils % 12.0 H Lymphocytes % (Manual) 17.0 L Monocytes % (Manual) 12.0 H Eosinophils % (Manual) 2.0 Neutrophils # (Manual) 6693 H RBC Morphology See below Anisocytosis 1+ H PT 12.6 H INR 1.1 APTT 20 L Sodium 136 L 136 L Potassium 2.8 L 3.1 L Chloride 98 99 Carbon Dioxide 29 30 BUN 15 12 Creatinine 0.78 0.66 Estimated GFR > 60 > 60 BUN/Creatinine Ratio 19.2 18.2 Glucose 123 H 110 H Lactate Calcium 7.9 L 8.1 L Total Bilirubin 0.3 0.4 AST 38 H 32 ALT 29 28 Alkaline Phosphatase 121 116 Total Protein 6.1 L 5.8 L Albumin 3.3 L 3.0 L Globulin 2.8 2.8 Albumin/Globulin Ratio 1.2 1.1 Amylase 30 Lipase Procalcitonin Urine Color Urine Appearance Urine pH Ur Specific [place] Urine Protein Urine Glucose (UA) Urine Ketones Urine Occult Blood Urine Nitrate Urine Bilirubin Urine Urobilinogen Ur Leukocyte Esterase Urine RBC Urine WBC Ur Squamous Epith Cells Urine Bacteria Ur Culture Indicated? Vol Urine Centrifuged [facility] Medical History (Updated 04/27/25 @ 08:52 by Brii Frazier MD) Dizziness Arthralgia Weight gain, abnormal Orthostatic hypotension Nausea and vomiting in adult patient Hot flashes due to menopause Onychomycosis Chronic pain due to neoplasm Functional memory problem BMI 45.0-49.9, adult History of colon polyps Insomnia disorder, with non-sleep disorder mental comorbidity Bilateral chronic knee pain Acute pain of right knee UTI (urinary tract infection) Paget's disease of bone Obstructive sleep apnea on CPAP Lymphedema of arm Essential hypertension Major depressive disorder Abrasion, corneal Migraines Fibromyalgia (~05/2017) History of PCR DNA positive for HSV1 (~2014) Hypothyroidism (~2008) Rheumatoid arthritis Asthma Depression Irritable bowel syndrome Diverticular disease (~2015) Gestational diabetes mellitus (GDM) (10/27/14) Surgical History Status post laparoscopy (01/19/16) Status post laparoscopic supracervical hysterectomy (10/23/15) Status post delivery (12/30/14) Status post tubal ligation (12/30/14) Status post surgery (07/07/12) Family History Grandmother Stroke Grandfather Heart disease Cancer Father Hypertension Mother Hypothyroidism (acquired) Social History marital status: household members: spouse and children lives independently: Yes Tobacco & Substance Use Smoking Status: Current every day smoker alcohol intake: current substance use type: does not use Assessment & Plan Assessment and plan (1) Small bowel obstruction: Status: Acute Plan NPO, IVF, NGT Consider gastrografin challenge tomorrow after decompression Observe pneumotosis coli for now, normal WBC, lactate, non-peritoneal, no free air Replace electrolytes, K, Mg, Phos as indicated Check amylase for pneumotosis Will follow Time-Based Coding :: [TOTAL MINUTES] spent with patient and on the chart (including review of chart, obtaining history, exam, reviewing outside data, placing orders, documenting exam and treatment plan, and counseling patient) on [DATE]. PROFEE Charge Codes Inpatient or Observation consultation: 53021
[2025-04-27 14:49] LABS: Magnesium 1.6 mg/dL (1.6-2.3); Phosphorous 3.1 mg/dL (2.5-4.5)
[2025-04-27] MEDS: PANTOPRAZOLE 40 MG VIAL IV (15:24)
--- NOTE | 2025-04-27 15:44 | PC.NURSE ---
Admit note: Patient arrived to 211 via gurney, ambulated independently to BR. Ambulation noted to be minimally unsteady due to long standing osteoarthritis to bilaterally knees. Patient alert and oriented, received on O2 at 4L via Oxymask sats > 94%. Placed on Cardiac/Tele monitoring and NGT at LIS. C/O abdominal pain described as generalized burning sensation, abdomen round, tender, with hypactive BS. + Flatus. No c/o nausea. IVF continued as ordered. Patient to remain NPO, ordered BG Q6 per protocol. Oriented to room, environment and plan of care. Call light within reach. BG 88 mg/dl 1445: Noted patient with sporadic cough, and mild generalized Edema. Diffuse wheezing noted. Notified Dr. Sellers regarding concern with IVF rate and Hx of Heart Fx. Per MD, continue IVF at order rate due to fluid volume loss.
[2025-04-27] MEDS: MAGNESIUM SULFATE 2 GM/50 ML PIGGYBACK IV (17:21)
--- NOTE | 2025-04-27 18:25 | PC.NURSE ---
Addendum entered by Stefanie Laura RN 04/27/25 19:56: Bedside report given to Amanda PRESCOTT Addendum entered by Stefanie Laura RN 04/27/25 19:56: 250 ml green/maroon gastric drainage via NGT Original Note: Day shift note: Patient up OOB to void, quantity 700 ml. Weaned off O2, sats 98% on RA. No nausea, breathing effort improved. VSS and BG 79 mg/dl. Continue NPO, pain adequately relief with Morphine PRN as ordered. NGT to left nare, at LIS with dark green/maroon secretions.
[2025-04-28] VITALS: BP 130/78; PULSE 95; RESP 18; TEMP 36.3; O2SAT 94
[2025-04-28] MEDS: PIPERACILLIN/TAZO 3.375 GM in SODIUM CHLORIDE 0.9% 100 ML IV ×3 (00:07→15:44)
[2025-04-28] MEDS: MORPHINE 4 MG/ML INJ 3 MG IV ×7 (00:14→22:23)
[2025-04-28 06:00] LABS: Blood Urea Nitrogen 7 mg/dL (7-17); Calcium 8.5 mg/dL (8.4-10.2); Carbon Dioxide 28 mmol/L (22-32); Chloride 102 mmol/L (98-107); Estimated Glomerular Filt Rate > 60 mL/min (>60); Glucose 91 mg/dL (70-99); HEMOLYSIS < 15 (0-50); Magnesium 1.9 mg/dL (1.6-2.3); Potassium 2.9 mmol/L (3.4-5.1); Sodium 137 mmol/L (137-145)
[2025-04-28 06:28] LABS: Hematocrit 38.7 % (36-46); Hemoglobin 13.0 g/dL (12.0-16.0); Mean Corpuscular HGB Conc 33.5 % (30-36); Mean Corpuscular Hemoglobin 28.1 PG (26-34); Mean Corpuscular Volume 83.9 fL (80-100); Platelet Count 233 X10^3/uL (150-400)
[2025-04-28 06:33] LABS: Add Manual Diff / Slide Review YES
[2025-04-28 07:37] LABS: Band Neutrophils Percent 11.0 % (3-7); Eosinophils Percent Manual 9.0 % (2-4); Lymphocytes Percent Manual 11.0 % (25-45); Monocytes Percent Manual 5.0 % (2-11); Neutrophils Absolute Manual 7950 /uL (3000-5900); Segmented Neutrophils Percent 64.0 % (38-70); Total Cells Counted 100
[2025-04-28 07:38] LABS: Anisocytosis 1+
--- NOTE | 2025-04-28 07:59 | DI.RAD.S_ITS ---
PROCEDURE: XR KUB INDICATIONS: Small-bowel obstruction TECHNIQUE: One view of the abdomen acquired. COMPARISON: [facility], CR, XR CHEST 1V, 04/27/2025, 8:34. [facility], CT, CT CHEST ABD PEL W CON, 04/27/2025, 1:49. FINDINGS: Surgical changes and devices: The tip of the gastric tube can be seen overlying the mid stomach, with the side hole below the level of the diaphragm. Bowel: No dilated loops of small bowel are now seen. Soft tissues: No suspicious abdominal calcifications. Visualized solid organ contours appear normal in size. Bones: No suspicious bony lesions. IMPRESSION: No dilated loops of small bowel are now seen. The tip of the gastric tube can be seen overlying the mid stomach. Dictated by: Dallin Umanzor M.D. on 04/28/2025 at 7:43 Approved by: Dallin Umanzor M.D. on 04/28/2025 at 7:44
[2025-04-28 08:00] VITALS: BP 152/99; PULSE 94; RESP 16; TEMP 36.9; O2SAT 91
[2025-04-28] MEDS: PANTOPRAZOLE 40 MG VIAL IV (08:27)
[2025-04-28] MEDS: POTASSIUM CHLORIDE IN WATER 10 MEQ/100 ML PIGGYBACK 100 MEQ IV ×6 (08:27→16:42)
--- NOTE | 2025-04-28 08:53 | P.PN_ITS ---
Subjective Subjective Date Patient Seen: 04/28/25 Time Patient Seen: 08:54 Interval history: +flatus small BM recorded, but patient denies Exam Vital Signs (past 8 hours): - 04/28/25 08:00 Temperature 98.5 F Pulse Rate 94 H Respiratory Rate 16 Blood Pressure 152/99 H Pulse Oximetry 91 Oxygen Flow Rate 0 Oxygen Delivery Method Room Air Oxygen Flow Rate 0 Narrative Exam Narrative: ABD: less distended, non-peritoneal, +tympany Objective Labs 04/28/25 05:25 04/28/25 05:25 Labs: Laboratory Results - last 24 hr 04/27/25 04/27/25 04/27/25 00:38 11:16 11:18 WBC 9.7 RBC 4.53 Hgb 12.7 Hct 38.4 MCV 84.7 MCH 28.0 MCHC 33.1 RDW 15.5 H Plt Count 219 Neut % (Auto) Not Reportable Lymph % (Auto) Not Reportable [place] % (Auto) Not Reportable Eos % (Auto) Not Reportable Baso % (Auto) Not Reportable Lymph # (Auto) Not Reportable [place] # (Auto) Not Reportable Baso # (Auto) Not Reportable Total Counted 100 Seg Neutrophils % 57.0 Band Neutrophils % 12.0 H Lymphocytes % (Manual) 17.0 L Monocytes % (Manual) 12.0 H Eosinophils % (Manual) 2.0 Neutrophils # (Manual) 6693 H RBC Morphology See below Anisocytosis 1+ H PT 12.6 H INR 1.1 APTT 20 L Sodium 136 L Potassium 3.1 L Chloride 99 Carbon Dioxide 30 BUN 12 Creatinine 0.66 Estimated GFR > 60 BUN/Creatinine Ratio 18.2 Glucose 110 H POC Whole Bld Glucose Calcium 8.1 L Phosphorus 3.1 Magnesium 1.6 Total Bilirubin 0.4 AST 32 ALT 28 Alkaline Phosphatase 116 Total Protein 5.8 L Albumin 3.0 L Globulin 2.8 Albumin/Globulin Ratio 1.1 Amylase 30 04/27/25 04/27/25 04/28/25 14:20 18:13 00:29 WBC RBC Hgb Hct MCV MCH MCHC RDW Plt Count Neut % (Auto) Lymph % (Auto) [place] % (Auto) Eos % (Auto) Baso % (Auto) Lymph # (Auto) [place] # (Auto) Baso # (Auto) Total Counted Seg Neutrophils % Band Neutrophils % Lymphocytes % (Manual) Monocytes % (Manual) Eosinophils % (Manual) Neutrophils # (Manual) RBC Morphology Anisocytosis PT INR APTT Sodium Potassium Chloride Carbon Dioxide BUN Creatinine Estimated GFR BUN/Creatinine Ratio Glucose POC Whole Bld Glucose 88 79 81 Calcium Phosphorus Magnesium Total Bilirubin AST ALT Alkaline Phosphatase Total Protein Albumin Globulin Albumin/Globulin Ratio Amylase 04/28/25 04/28/25 05:25 06:43 WBC 10.6 RBC 4.62 Hgb 13.0 Hct 38.7 MCV 83.9 MCH 28.1 MCHC 33.5 RDW 15.9 H Plt Count 233 Neut % (Auto) Not Reportable Lymph % (Auto) Not Reportable [place] % (Auto) Not Reportable Eos % (Auto) Not Reportable Baso % (Auto) Not Reportable Lymph # (Auto) Not Reportable [place] # (Auto) Not Reportable Baso # (Auto) Not Reportable Total Counted 100 Seg Neutrophils % 64.0 Band Neutrophils % 11.0 H Lymphocytes % (Manual) 11.0 L Monocytes % (Manual) 5.0 Eosinophils % (Manual) 9.0 H Neutrophils # (Manual) 7950 H RBC Morphology See below Anisocytosis 1+ H PT INR APTT Sodium 137 Potassium 2.9 L Chloride 102 Carbon Dioxide 28 BUN 7 Creatinine 0.60 Estimated GFR > 60 BUN/Creatinine Ratio 11.7 Glucose 91 POC Whole Bld Glucose 86 Calcium 8.5 Phosphorus Magnesium 1.9 Total Bilirubin AST ALT Alkaline Phosphatase Total Protein Albumin Globulin Albumin/Globulin Ratio Amylase [facility] Medical History (Updated 04/27/25 @ 08:52 by Brii Frazier MD) Dizziness Arthralgia Weight gain, abnormal Orthostatic hypotension Nausea and vomiting in adult patient Hot flashes due to menopause Onychomycosis Chronic pain due to neoplasm Functional memory problem BMI 45.0-49.9, adult History of colon polyps Insomnia disorder, with non-sleep disorder mental comorbidity Bilateral chronic knee pain Acute pain of right knee UTI (urinary tract infection) Paget's disease of bone Obstructive sleep apnea on CPAP Lymphedema of arm Essential hypertension Major depressive disorder Abrasion, corneal Migraines Fibromyalgia (~05/2017) History of PCR DNA positive for HSV1 (~2014) Hypothyroidism (~2008) Rheumatoid arthritis Asthma Depression Irritable bowel syndrome Diverticular disease (~2015) Gestational diabetes mellitus (GDM) (10/27/14) Surgical History Status post laparoscopy (01/19/16) Status post laparoscopic supracervical hysterectomy (10/23/15) Status post delivery (12/30/14) Status post tubal ligation (12/30/14) Status post surgery (07/07/12) Family History Grandmother Stroke Grandfather Heart disease Cancer Father Hypertension Mother Hypothyroidism (acquired) Social History marital status: household members: spouse and children lives independently: Yes Smoking Status: Current every day smoker alcohol intake: current substance use type: does not use Assessment & Plan Assessment and plan (1) Small bowel obstruction: Status: Acute Plan NGT 250/275 per shift Mg, Phos normal; K requiring replacement AXR this morning shows no dilated small bowel but heavy stool burden Plan disimpaction, soap suds enemas Clinical picture consistent with severe constipation Check TSH Time-Based Coding :: [TOTAL MINUTES] spent with patient and on the chart (including review of chart, obtaining history, exam, reviewing outside data, placing orders, documenting exam and treatment plan, and counseling patient) on [DATE]. PROFEE [employer] Document charge(s): Yes Charge Codes Subsequent inpatient/observation care: [id number]
[2025-04-28 09:43] LABS: Thyroid Stimulating Hormone 2.29 uIU/mL (0.47-4.68)
[2025-04-28] MEDS: METOPROLOL TARTRATE 5 MG/5 ML INJ IV ×3 (10:30→21:19)
[2025-04-28] MEDS: LEVOTHYROXINE INJ 100 MCG/5 ML VIAL 75 MCG IV (10:30)
--- NOTE | 2025-04-28 10:44 | CM.DANOTE ---
Initial DCP Assessment Visit Note Reviewed EMR and team rounds for pt's medical status and updates. Met with pt at bedside briefly to introduce self and role, pt was found to be alert/oriented, but quite physically uncomfortable at the time of this visit. Pt resides independently with her spouse and children in their own home in [place]. Her spouse will transport her home once she's been medically cleared for d/c. She declines any CM d/c resources or assistance at this time. Payor: [facility] Health Options PCP: Dr. Arreguin Pt is a 44 year-old F who presented to [facility] ED with nausea/vomiting, vomiting blood, abdominal pain, and diarrhea for the last 2-days. ED imaging was positive for a SBO and hypokalemia. NG tube was placed, surgery was consulted, and the plan was made to admit for initial conservative measures with a gastrographin challenge. Today, Dr. Broussard evaluated her again, and imaging did show a large impacted stool ball in her colon. Plan for today is ememas and disimpaction, then she will be evaluated again to see if SBO has resolved. DCP will continue to monitor and assist with any further evolving care needs prior to her eventual departure home. Discharge Planning/Care Management Advanced directive, confirm from FAMILY Start: 04/27/25 11:40 Freq: Q24H Status: Active Protocol: Document 04/27/25 12:53 ESV (Rec: 04/27/25 13:01 ESV [id number]) Advance Directive, confirm on record Time 13:01 Person contacted patient Copy received No CM Discharge Assessment Start: 04/27/25 06:38 Freq: Status: Active Protocol: Document 04/28/25 09:31 DPL (Rec: 04/28/25 09:40 DPL [id number]) Discharge Planning Assessment Assigned Discharge JOSÉ [employer] Insurance Other (enter in Comment) Insurance Comment [facility] Advance Directives? No Advance Directives No on File History Provided By Patient,Medical Record Has Patient been No admitted in last 30 days? Prior Living House Arrangements Household Members spouse,children Type of Drives own vehicle transporation used prior to admit Independent with ADL Yes 's Is patient alert and Yes oriented? Caregiver for Yes Another Comment Patient reports she does not use oxygen at baseline but still has leftover from previous admission. Comment No identified home d/c needs at this time. Barriers to No Discharge Discharge Plan Home Transportation Spouse Arrangement Referrals Initiated None needed Whiteboard Updated Yes in Patient Room with name and ext. # of Business Supervisor Review Status In Process Please Provide Date 04/28/25 Initial DC Assessment Was Performed
--- NOTE | 2025-04-28 11:52 | PC.NURSE ---
Dr. Broussard notified pharmacy does not stock or support soap suds enema administration. Per pharmacy fleets enema safe dosing is once daily, Dr. Broussard notified. TORB Orders for fleets enema, NGT removal and administration of po milk of magnesium and mineral oil, sips of clears NO CARBONATION. Patient updated on plan of care.
[2025-04-28] MEDS: MAGNESIUM HYDROXIDE 30 ML UDC PO ×2 (12:32→22:20)
[2025-04-28] MEDS: MINERAL OIL 1 EACH ENEMA PR (12:32)
--- NOTE | 2025-04-28 12:47 | P.PN_ITS ---
Subjective Subjective Date Patient Seen: 04/28/25 Time Patient Seen: 09:40 Interval history: Chief complaint: Abdominal pain and diarrhea for 5 days (since 04/22) with findings of ileus and pneumatosis on CT History of present illness: 04/26: 44-year-old female with past medical history of appendectomy and C- section, depression, neuropathy, hypothyroidism, hypertension, asthma, fibromyalgia and irritable bowel syndrome presents with complaint of nausea, vomiting, diarrhea and abdominal pain. Per the patient's report, over the last few days the patient started to notice some nausea with some abdominal discomfort. Today the patient nausea worsens and the patient had vomiting and watery diarrhea. The patient noticed some small amount of blood in her stool but denies any syncope. The patient also had subjective fever but denies chills, chest pain, shortness of breath or dysuria. In the emergency room, the patient was hemodynamically stable. Lab shows a WBC of 11.7, potassium of 2.7 lipase [address] scan shows sign of small bowel obstruction with pneumatosis of the colon wall. General surgery was consulted and recommend that we continue treating for small bowel obstruction and general surgery will consult in the morning. The patient remained hemodynamically stable. Patient was given IV fluid, IV Zosyn potassium replacement and plan for NG tube placement. Hospital course: 04/27: Patient seen at 7:30 a.m. no rigors or chills overnight last bowel movement was 6-8 hours ago no vomiting. Bowel sounds present throughout the abdomen which is distended and diffusely tender but without guarding rebound. Repeat CBC CMP and lactate ordered PT and PTT ordered in case the patient needs to go to surgery. At present to the hospital physician she does not appear to need emergent surgery, however we will defer to clinical science consultant opinion. 04/28: Small bowel movement recorded KUB shows no dilated loops bowels but heavy stool burden we will give enemas in attempt to laxate Review of systems: No fever or chills rigors No vomiting Chest pain palpitations No acute dyspnea No paresthesia or paresis Physical examination: Patient appears moderately ill but is alert and not in acute extremis HEENT unremarkable Lungs with shortened respiratory phases occasional rhonchi diminished vesicular breath sounds no crackles or rales at bases Heart rate and rhythm regular with a low pitch 3/6 holosystolic murmur loudest at the right sternal border Abdomen is distended bowel sounds are low pitched and present throughout the abdomen diffusely tender but without rebound or guarding Extremities no edema or cyanosis Assessment and plan: Colitis with findings on CT that suggest ileus and possibly pneumatosis of the colon wall per impression of the radiologist without sign of bowel perforation or acute abdomen * Continue Zosyn * GI film panel pending * Blood culture no growth 24 hours * Consultation with General surgery appreciate * NPO and IV fluid hydration * Serial lactate and CBC Dehydration and hypokalemia secondary to vomiting and diarrhea from colitis * Hydration and potassium repletion Chronic diastolic congestive heart failure: * Appears compensated at this time * Monitor for signs of fluid overload or cardiorenal syndrome during hospitalization Chronic asthma: * Bronchodilators as needed DVT prophylaxis: * SCDs only Code status: * Full code blue Disposition: * Inpatient expect at least 2-3 days after which further hospitalization will be evaluated Time based billing: * 35 minutes were evaluation in evaluation of this patient including [id number] evaluation physical evaluation review of previous records discussion with the patient review of objective laboratory and imaging findings discussion with consultants and care team Exam Vital Signs (past 8 hours): - 04/28/25 08:00 Temperature 98.5 F Pulse Rate 94 H Respiratory Rate 16 Blood Pressure 152/99 H Pulse Oximetry 91 Oxygen Flow Rate 0 Oxygen Delivery Method Room Air Oxygen Flow Rate 0 Objective Labs 04/28/25 05:25 04/28/25 05:25 Labs: Laboratory Results - last 24 hr 04/27/25 04/27/25 04/27/25 00:38 14:20 18:13 WBC RBC Hgb Hct MCV MCH MCHC RDW Plt Count Neut % (Auto) Lymph % (Auto) [place] % (Auto) Eos % (Auto) Baso % (Auto) Lymph # (Auto) [place] # (Auto) Baso # (Auto) Total Counted Seg Neutrophils % Band Neutrophils % Lymphocytes % (Manual) Monocytes % (Manual) Eosinophils % (Manual) Neutrophils # (Manual) RBC Morphology Anisocytosis Sodium Potassium Chloride Carbon Dioxide BUN Creatinine Estimated GFR BUN/Creatinine Ratio Glucose POC Whole Bld Glucose 88 79 Calcium Phosphorus 3.1 Magnesium 1.6 TSH 04/28/25 04/28/25 04/28/25 00:25 00:29 05:25 WBC 10.6 RBC 4.62 Hgb 13.0 Hct 38.7 MCV 83.9 MCH 28.1 MCHC 33.5 RDW 15.9 H Plt Count 233 Neut % (Auto) Not Reportable Lymph % (Auto) Not Reportable [place] % (Auto) Not Reportable Eos % (Auto) Not Reportable Baso % (Auto) Not Reportable Lymph # (Auto) Not Reportable [place] # (Auto) Not Reportable Baso # (Auto) Not Reportable Total Counted 100 Seg Neutrophils % 64.0 Band Neutrophils % 11.0 H Lymphocytes % (Manual) 11.0 L Monocytes % (Manual) 5.0 Eosinophils % (Manual) 9.0 H Neutrophils # (Manual) 7950 H RBC Morphology See below Anisocytosis 1+ H Sodium 137 Potassium 2.9 L Chloride 102 Carbon Dioxide 28 BUN 7 Creatinine 0.60 Estimated GFR > 60 BUN/Creatinine Ratio 11.7 Glucose 91 POC Whole Bld Glucose 81 Calcium 8.5 Phosphorus Magnesium 1.9 TSH 2.29 04/28/25 04/28/25 06:43 11:44 WBC RBC Hgb Hct MCV MCH MCHC RDW Plt Count Neut % (Auto) Lymph % (Auto) [place] % (Auto) Eos % (Auto) Baso % (Auto) Lymph # (Auto) [place] # (Auto) Baso # (Auto) Total Counted Seg Neutrophils % Band Neutrophils % Lymphocytes % (Manual) Monocytes % (Manual) Eosinophils % (Manual) Neutrophils # (Manual) RBC Morphology Anisocytosis Sodium Potassium Chloride Carbon Dioxide BUN Creatinine Estimated GFR BUN/Creatinine Ratio Glucose POC Whole Bld Glucose 86 76 Calcium Phosphorus Magnesium TSH [facility] Medical History (Updated 04/27/25 @ 08:52 by Brii Frazier MD) Dizziness Arthralgia Weight gain, abnormal Orthostatic hypotension Nausea and vomiting in adult patient Hot flashes due to menopause Onychomycosis Chronic pain due to neoplasm Functional memory problem BMI 45.0-49.9, adult History of colon polyps Insomnia disorder, with non-sleep disorder mental comorbidity Bilateral chronic knee pain Acute pain of right knee UTI (urinary tract infection) Paget's disease of bone Obstructive sleep apnea on CPAP Lymphedema of arm Essential hypertension Major depressive disorder Abrasion, corneal Migraines Fibromyalgia (~05/2017) History of PCR DNA positive for HSV1 (~2014) Hypothyroidism (~2008) Rheumatoid arthritis Asthma Depression Irritable bowel syndrome Diverticular disease (~2015) Gestational diabetes mellitus (GDM) (10/27/14) Surgical History Status post laparoscopy (01/19/16) Status post laparoscopic supracervical hysterectomy (10/23/15) Status post delivery (12/30/14) Status post tubal ligation (12/30/14) Status post surgery (07/07/12) Family History Grandmother Stroke Grandfather Heart disease Cancer Father Hypertension Mother Hypothyroidism (acquired) Social History marital status: household members: spouse and children lives independently: Yes Smoking Status: Current every day smoker alcohol intake: current substance use type: does not use Assessment & Plan Time-Based Coding :: [TOTAL MINUTES] spent with patient and on the chart (including review of chart, obtaining history, exam, reviewing outside data, placing orders, documenting exam and treatment plan, and counseling patient) on [DATE].
[2025-04-28 13:34] VITALS: BP 131/76; PULSE 85; RESP 14; TEMP 36.3; O2SAT 96
[2025-04-28] MEDS: MINERAL OIL 30 ML UDC PO ×2 (15:42→22:26)
[2025-04-28] MEDS: FLEETS ENEMA 1 EACH PR (15:44)
[2025-04-28] MEDS: SODIUM CHLORIDE 0.9% 1,000 ML 100 ML IV (16:42)
[2025-04-28 17:00] VITALS: BP 151/91; PULSE 82; RESP 14; TEMP 36.4; O2SAT 98
[2025-04-28 19:19] LABS: HEMOLYSIS 36 (0-50); Potassium 3.6 mmol/L (3.4-5.1)
[2025-04-28 21:00] VITALS: BP 140/52; PULSE 84; RESP 18; TEMP 36.4; O2SAT 92
[2025-04-29] MEDS: PIPERACILLIN/TAZO 3.375 GM in SODIUM CHLORIDE 0.9% 100 ML IV (01:09)
--- NOTE | 2025-04-29 01:10 | PC.NURSE ---
Called Wet Pan Operator as unable to aspirate left A/C IV or flush line (dedicated for ANTBX), Wet Pan Operator attempted to manipulate line to get it to function, in process of manipulating line, line dislodged. LIne removed. Attempted to replace line in same general area without success. Coordinator to attempt ED nurse with ultrasound credentials replace line.
[2025-04-29] MEDS: MORPHINE 4 MG/ML INJ 3 MG IV ×2 (01:20→04:13)
[2025-04-29] MEDS: METOPROLOL TARTRATE 5 MG/5 ML INJ IV (01:59)
[2025-04-29] MEDS: SODIUM CHLORIDE 0.9% 1,000 ML 100 ML IV (02:35)
[2025-04-29 02:47] VITALS: BP 116/72; PULSE 78; RESP 20; TEMP 36.9; O2SAT 93
[2025-04-29 06:00] VITALS: BP 131/82; PULSE 81; RESP 20; TEMP 36.6; O2SAT 92
[2025-04-29] MEDS: PANTOPRAZOLE 40 MG VIAL IV (08:48)
[2025-04-29] MEDS: ACETAMINOPHEN 325 MG TABLET 650 MG PO (09:09)
--- NOTE | 2025-04-29 09:24 | P.DS_ITS ---
History of Present Illness History of Present Illness Date Patient Seen: 04/29/25 Time Patient Seen: 09:24 Chief complaint: Vomiting Blood, Abdominal Pain, Fever Narrative: Chief complaint: Abdominal pain and diarrhea for 5 days (since 04/22) with findings of ileus and pneumatosis on CT History of present illness: 04/26: 44-year-old female with past medical history of appendectomy and C- section, depression, neuropathy, hypothyroidism, hypertension, asthma, fibromyalgia and irritable bowel syndrome presents with complaint of nausea, vomiting, diarrhea and abdominal pain. Per the patient's report, over the last few days the patient started to notice some nausea with some abdominal discomfort. Today the patient nausea worsens and the patient had vomiting and watery diarrhea. The patient noticed some small amount of blood in her stool but denies any syncope. The patient also had subjective fever but denies chills, chest pain, shortness of breath or dysuria. In the emergency room, the patient was hemodynamically stable. Lab shows a WBC of 11.7, potassium of 2.7 lipase [address] scan shows sign of small bowel obstruction with pneumatosis of the colon wall. General surgery was consulted and recommend that we continue treating for small bowel obstruction and general surgery will consult in the morning. The patient remained hemodynamically stable. Patient was given IV fluid, IV Zosyn potassium replacement and plan for NG tube placement. Hospital course: 04/27: Patient seen at 7:30 a.m. no rigors or chills overnight last bowel movement was 6-8 hours ago no vomiting. Bowel sounds present throughout the abdomen which is distended and diffusely tender but without guarding rebound. Repeat CBC CMP and lactate ordered PT and PTT ordered in case the patient needs to go to surgery. At present to the hospital physician she does not appear to need emergent surgery, however we will defer to oral surgery assistant opinion. 04/28: Small bowel movement recorded KUB shows no dilated loops bowels but heavy stool burden we will give enemas in attempt to laxate 04/29: Patient having bowel movements tolerating diet asking me to discharged home patient will be discharged on metronidazole Review of systems: No fever or chills rigors No vomiting Chest pain palpitations No acute dyspnea No paresthesia or paresis Physical examination: Patient appears moderately ill but is alert and not in acute extremis HEENT unremarkable Lungs with shortened respiratory phases occasional rhonchi diminished vesicular breath sounds no crackles or rales at bases Heart rate and rhythm regular with a low pitch 3/6 holosystolic murmur loudest at the right sternal border Abdomen is distended bowel sounds are low pitched and present throughout the abdomen diffusely tender but without rebound or guarding Extremities no edema or cyanosis Assessment and plan: Colitis with findings on CT that suggest ileus and possibly pneumatosis of the colon wall per impression of the radiologist without sign of bowel perforation or acute abdomen * Resolved discharged on metronidazole Dehydration and hypokalemia secondary to vomiting and diarrhea from colitis * Hydration and potassium repletion Chronic diastolic congestive heart failure: * Appears compensated at this time * Monitor for signs of fluid overload or cardiorenal syndrome during hospitalization Chronic asthma: * Bronchodilators as needed DVT prophylaxis: * SCDs only Code status: * Full code blue Disposition: * Discharge to home Time based billing: * 35 minutes were evaluation in evaluation of this patient including [id number] evaluation physical evaluation review of previous records discussion with the patient review of objective laboratory and imaging findings discussion with consultants and care team Discharge Providers Provider Date of admission: 04/27/25 04:05 Discharge Date: 04/29/25 Primary care physician: Eduard Arreguin DO Discharge provider: Nitish Sellers MD Exam Vital Signs (past 8 hours): - 04/29/25 02:47 04/29/25 06:00 Temperature 98.5 F 97.8 F Pulse Rate 78 81 Respiratory Rate 20 20 Blood Pressure 116/72 131/82 Pulse Oximetry 93 92 Oxygen Delivery Method Room Air Oxygen Flow Rate 0 Objective Labs 04/28/25 05:25 04/28/25 19:00 Labs: Laboratory Results - last 24 hr 04/28/25 04/28/25 04/28/25 00:25 11:44 16:30 Potassium POC Whole Bld Glucose 76 77 TSH 2.29 04/28/25 04/28/25 04/29/25 19:00 23:54 06:55 Potassium 3.6 POC Whole Bld Glucose 147 H 145 H TSH PFSH Medical History (Updated 04/27/25 @ 08:52 by Brii Frazier MD) Dizziness Arthralgia Weight gain, abnormal Orthostatic hypotension Nausea and vomiting in adult patient Hot flashes due to menopause Onychomycosis Chronic pain due to neoplasm Functional memory problem BMI 45.0-49.9, adult History of colon polyps Insomnia disorder, with non-sleep disorder mental comorbidity Bilateral chronic knee pain Acute pain of right knee UTI (urinary tract infection) Paget's disease of bone Obstructive sleep apnea on CPAP Lymphedema of arm Essential hypertension Major depressive disorder Abrasion, corneal Migraines Fibromyalgia (~05/2017) History of PCR DNA positive for HSV1 (~2014) Hypothyroidism (~2008) Rheumatoid arthritis Asthma Depression Irritable bowel syndrome Diverticular disease (~2015) Gestational diabetes mellitus (GDM) (10/27/14) Surgical History Status post laparoscopy (01/19/16) Status post laparoscopic supracervical hysterectomy (10/23/15) Status post delivery (12/30/14) Status post tubal ligation (12/30/14) Status post surgery (07/07/12) Family History Grandmother Stroke Grandfather Heart disease Cancer Father Hypertension Mother Hypothyroidism (acquired) Social History marital status: household members: spouse and children lives independently: Yes Smoking Status: Current every day smoker alcohol intake: current substance use type: does not use Discharge Plan Discharge Plan Patient Disposition: Home Discharge orders & Medications Prescriptions: New metronidazole 500 mg tablet 500 mg PO Q8H Qty: 20 0RF Continued metoprolol tartrate 25 mg tablet 25 mg PO BID Qty: 180 1RF Patient Comments: pt reports taking med at bedtime only 25 mg duloxetine 60 mg capsule,delayed release(DR/EC) 60 mg PO DAILY Qty: 90 1RF pregabalin 200 mg capsule See Rx Instructions .ROUTE .COMPLEX Qty: 270 3RF Rx Instructions: Take 1 capsule by mouth 3 times daily furosemide 80 mg tablet 320 mg PO DAILY Qty: 360 3RF potassium chloride 20 mEq/15 mL liquid 10 meq PO DAILY Qty: 1200 5RF quetiapine 25 mg tablet 75 mg PO ONCE PM Qty: 90 10RF albuterol sulfate 2.5 mg /3 mL (0.083 %) solution for nebulization 2.5 mg INHALATION Q4-6H PRN (Reason: bronchospasm) Qty: 90 3RF amitriptyline 150 mg tablet 150 mg PO ONCE PM Qty: 90 1RF bupropion HCl 150 mg tablet extended release 24 hr 150 mg PO DAILY Qty: 90 1RF Patient Comments: Takes at bedtime Rx Instructions: TAKE 1 TABLET (150 MG) ORALLY DAILY oxycodone 10 mg tablet See Rx Instructions .ROUTE .COMPLEX Qty: 150 0RF Rx Instructions: Take 1 tablet by mouth 5 times daily as needed for pain liraglutide 0.6 mg/0.1 mL (18 mg/3 mL) pen injector 1.8 mg SUBCUT Q24H Qty: 9 11RF Rx Instructions: increase dose by 0.6mg daily every seven days to maximum of 3mg daily. spironolactone 25 mg tablet 25 mg PO DAILY Qty: 90 3RF Jardiance 10 mg tablet 10 mg PO DAILY Qty: 90 3RF albuterol sulfate 90 mcg/actuation HFA aerosol inhaler 2 puff inhalation Q4H PRN (Reason: for wheezing) Qty: 8.5 12RF levothyroxine 150 mcg tablet 150 mcg PO QAM Qty: 90 1RF liraglutide 0.6 mg/0.1 mL (18 mg/3 mL) pen injector See Rx Instructions SUBCUT .COMPLEX Qty: 6 5RF Rx Instructions: then 1.2mg daily ondansetron 4 mg tablet,disintegrating 4 mg PO Q8H PRN (Reason: nausea and vomiting) Qty: 30 5RF (DME) pen needle, diabetic 32 gauge x 5/32 needle See Rx Instructions .Route Qty: 100 12RF Rx Instructions: USE TO INJECT LIRAGLUTIDE ONCE DAILY tizanidine 4 mg tablet 4 mg PO BEDTIME PRN (Reason: muscle spasticity) Qty: 90 3RF ibuprofen [Motrin IB] 200 mg tablet 400 mg PO Q8H PRN (Reason: pain (scale score 4-6)) Qty: 30 0RF Follow up/Referrals: Eduard Arreguin DO [Primary Care Provider, Family Practice] Visit Report/Discharge Packet Stand Alone Forms: [employer], Patient Portal/API, Stroke Signs & Symptoms, Influenza Vaccine Info, Notice of Privacy Practices, Inpatient vs Outpatient, Pneumococcal Vaccine Info, Pt. Rights & Responsibilities Discharge Data Primary Care Provider: Eduard Arreguin
[2025-04-29] MEDS: METOPROLOL IR 25 MG TABLET PO (10:43)
[2025-04-29] MEDS: POTASSIUM CHLORIDE 20 MEQ/15 ML UDC 10 MEQ PO (10:44)
[2025-04-29] MEDS: SPIRONOLACTONE 25 MG TABLET PO (10:44)
--- NOTE | 2025-04-29 11:09 | PC.NURSE ---
Addendum entered by Rody Day, RN 04/29/25 11:38: Pt received home instructions and new med list. Pt escorted by staff via W/C to waiting vehicle D/C in stable status Original Note: Pt denies discomfort at this time . Up in room ad david MD in to see, Pt received D/C orders. SL D/C intact; tele D/C Will be D/C soon.
--- NOTE | 2025-04-29 11:18 | CM.DPC ---
DCP Cont. Reviewed EMR and team rounds for pt's medical status and updates. Pt has been medically cleared for home d/c, her spouse will transport her home. No further CM d/c needs are identified at this time.
== END 2025-04-29 11:38 | disposition home or self-care (01) | DRG 247 ==
LOC: ED 04:03 → AC 04:05
PROVIDERS: Internal Medicine; Pharmacist Pharmacist Clinician (PhC)/ Clinical Pharmacy Specialist; Surgery; Admitting Provider Internal Medicine; Emergency Provider Student in an Organized Health Care Education/Training Program; PCP Family Medicine; Referring Provider Student in an Organized Health Care Education/Training Program; Visit Provider Internal Medicine
DX: K56.609 Unspecified intestinal obstruction, unspecified as to partial versus complete obstruction (principal); I50.32 Chronic diastolic (congestive) heart failure; E86.0 Dehydration; K52.9 Noninfective gastroenteritis and colitis, unspecified; K63.89 Other specified diseases of intestine; E87.6 Hypokalemia; J45.909 Unspecified asthma, uncomplicated; E03.9 Hypothyroidism, unspecified; K56.7 Ileus, unspecified; I11.0 Hypertensive heart disease with heart failure; F32.A Depression, unspecified; G62.9 Polyneuropathy, unspecified; M79.7 Fibromyalgia; F17.200 Nicotine dependence, unspecified, uncomplicated; Z79.890 Hormone replacement therapy; Z90.49 Acquired absence of other specified parts of digestive tract
CPT/HCPCS: 36415; 71045; 71260; 74018; 74177; 80048; 80053; 81001; 81003; 82150; 82962; 83605; 83690; 83735; 84100; 84132; 84145; 84443; 85007; 85025; 85610; 85730; 87040; 87086; 87147; 93005; 96361; 96365; 96366; 96367; 96375; 99284; 99285; A9270; J2272; J2405; J2470; J2543; J3475; J7030; J7050; J7120; Q9967